=== PATIENT | male | born 1950 | race Caucasian/White ===

== ENCOUNTER 2020-12-24 15:26 | Emergency (ER) | payer MEDICARE, MEDICAID, SELFPAY ==
[2020-12-24 15:28] VITALS: BP 141/88; PULSE 107; RESP 18; TEMP 37; O2SAT 100; BMI 28.1
--- NOTE | 2020-12-24 15:56 | ED.HA ---
HPI - Headache General Chief Complaint: Headache Stated Complaint: HEADACHE Time Seen by Provider: 12/24/20 15:41 Source: patient Mode of arrival: ambulatory Limitations: no limitations History of Present Illness HPI Narrative: 70 yo male with past medical history of HIV on triumeq, DM, [place] here with complaints of sore throat, cough, body aches and generalized CHADWICK x 2 days. No fevers, chills, abdominal pain, vomiting, diarrhea, shortness of breath or chest pain. Received 1st COVID vaccine and is scheduled for 2nd. Related Data Allergies Allergy/AdvReac Type Severity Reaction Status Date / Time No Known Allergies Allergy Mild NOT Unverified 05/26/20 15:12 APPLICABLE Review of Systems Review of Systems: Yes all other systems are reviewed and are negative Constitutional: Constitutional: Reports no additional constitutional complaints, Reports body ache(s), Denies chills, Denies fever(s), Reports headache(s) and Denies weakness Eyes: Eyes: Reports no additional eye complaints and Denies change in vision ENT: Reports system reviewed and no additional complaints, except as documented, Denies dizziness, Reports headache(s), Denies nasal congestion, Denies nasal discharge, Denies neck pain and Reports sore throat Cardiovascular: Cardiovascular: Reports no additional cardiovascular complaints, Denies chest pain, Denies leg edema and Denies dyspnea Respiratory: Respiratory: Reports no additional respiratory complaints, Reports cough and Denies dyspnea Gastrointestinal: Gastrointestinal: Reports no additional gastrointestinal complaints, Denies abdominal pain, Denies diarrhea, Denies nausea and Denies vomiting Genitourinary: Genitourinary: Denies urinary incontinence Musculoskeletal: Musculoskeletal: Reports no additional musculoskeletal complaints, Denies back pain, Denies arthralgias, Denies joint swelling, Denies neck pain, Denies numbness and Denies tingling Integumentary/Breasts: Skin/Breast: Reports system reviewed and no additional complaints, except as docu and Denies rash Neurologic: Reports system reviewed and no additional complaints, except as documented, Denies Abnormal speech present, Denies dizziness, Reports headache(s), Denies numbness, Denies tingling and Denies weakness PMFSH Past Medical History Attestation statement: The following information was validated with the patient. Source: old records reviewed and nursing notes reviewed Medical History Appendicitis Coma Diabetes HIV (human immunodeficiency virus infection) Low testosterone Myocardial infarct Social History Social History Advance Directives: No Advance Directives Information Provided: Yes Physical Exam Vital Signs: Vital Signs: Last Vital Signs Temp 98.6 F 12/24/20 15:28 Pulse 107 H 12/24/20 15:28 Resp 18 12/24/20 15:28 BP 141/88 H 12/24/20 15:28 Pulse Ox 100 12/24/20 15:28 Body Mass Index 28.1 Const: General: cooperative, healthy appearing, comfortable and no acute distress Orientation/consciousness: patient oriented x3 Limitations: no limitations HENMT: Head: Yes normal to inspection Ears: hearing grossly normal bilaterally General nose exam: Normal external nose present Face and sinus: Yes normal facial exam Mouth: Normal oral and palatal mucosa present Throat: Yes posterior oropharynx normal Eyes: General: appearance normal, both eyes and all related structures Pupils: Equal, round and reactive pupils present Neck: Neck: Yes normal visual inspection Chest: Chest palpation & inspection: normal inspection of the chest Resp: Effort & Inspection: normal respiratory effort Auscultation: clear to auscultation bilaterally Cardio: Rate: regular rate Rhythm: regular rhythm Peripheral pulses: Peripheral pulses 2+ throughout GI: Inspection: Yes normal to inspection Palpation (GI): Soft to palpation and nontender Auscultation: normal bowel sounds Back/Spine/Pelvis: Thoracic/Lumbar Spine: thoracic and lumbar spine normal to inspection Skin: General skin exam: no rashes or lesions noted Neuro: General: patient oriented x3, no focal motor deficits and normal sensation to monofilament Cranial nerves: Yes Equal, round and reactive pupils present Cognition (Neuro): normal cognition Speech: No Abnormal speech present Gait exam (Neuro): Normal gait present Motor exam (neuro): 5/5 motor strength present throughout Extrem: General: Yes normal to inspection, Yes no pedal edema and Yes no calf tenderness Course Course Course Narrative: 70 yo male here with sore throat, [place]ADW[place], cough, body aches x 2 days seeking COVID test. Hemodynamically stable. Afebrile. Exam is benign. Will send COVID screen 1700-COVID screen negative. Patient is well-appearing. I did discuss if he has persistent symptoms he should follow up with his primary care doctor for more testing as deemed appropriate. Reviewed worrisome signs and symptoms and when to return to the emergency department. Comfortable discharge home. MDM - Headache Medical Records Attestation: I reviewed the patient's medical records. Lab Data Attestation: I reviewed the patient's lab results. Labs: Lab Results 12/24/20 Range/Units 16:30 COVID-19 ([facility]) Negative (Negative) COVID-19 Clin Com See Note Discharge Plan Discharge Clinical Impression: Acute viral syndrome Patient Disposition: Home, Self-Care Instructions: Viral Syndrome (ED) Additional Instructions: Motrin or Tylenol if able as needed for pain or fever Increase fluids, rest Your COVID test was negative You likely have a virus and should use supportive care at home. Seek care for persistent fever greater than 100.4, vomiting, severe abdominal pain, shortness of breath or chest pain. Referrals: Physician,None [Primary Care Provider] - 2 days Interventions: ED Discharge Assessment Last Done: 12/24/20 17:03 Discharge Date/Time: 12/24/20 17:05
[2020-12-24 16:54] LABS: COVID-19 Test Negative (Negative)
== END 2020-12-24 17:05 | disposition home or self-care (01) ==
PROVIDERS: Nurse Practitioner Family; Emergency Provider Emergency Medicine
DX: B34.9 Viral infection, unspecified (principal); Z20.822 Contact with and (suspected) exposure to COVID-19; R51.9 Headache, unspecified; J02.9 Acute pharyngitis, unspecified; B20 Human immunodeficiency virus [HIV] disease; I25.2 Old myocardial infarction
CPT/HCPCS: 36415; 87635; 99283

== ENCOUNTER 2021-01-12 10:51 | Emergency (ER) | payer MEDICARE, MEDICAID, SELFPAY ==
--- NOTE | ~2021-01-12 | CT_ITS ---
EXAMINATION: CT CHEST, ABDOMEN AND PELVIS WITHOUT CONTRAST CLINICAL INFORMATION: Fever. COMPARISON: Chest x-ray 01/12/2021 TECHNIQUE: 5 mm thin axial and reformatted 3 mm thin sagittal and coronal images of chest, abdomen and pelvis were obtained without contrast. DLP 1040 mGy-cm. FINDINGS: CHEST: Both lungs are well-expanded without acute consolidation. There are small subpleural groundglass opacities in the bilateral upper lobes, lingula and right middle lobe suspicious of early infiltrates. In addition there is dependent bibasilar atelectasis. The thyroid lobes are symmetric and normal. The central trachea and bronchi are widely patent. Heart size and great vessels are normal caliber. There are coronary artery calcifications present. There are small shotty lymph nodes in the mediastinum. The largest lymph node measures 1.1 cm in the precarinal space. There is no pleural effusion, thickening or calcification. The axilla and chest wall appears unremarkable. ABDOMEN AND PELVIS: The liver is homogeneous in density, normal size, shape and position. There is no focal lesion or intrahepatic ductal dilatation. There are multiple radiopaque dependent gallstones without wall thickening. Visualized spleen, pancreas and bilateral adrenal glands are unremarkable. Both kidneys are normal size, shape and position. No radiopaque renal calculi or hydronephrosis seen. There is scattered stool and gas seen throughout the colon without any significant distention. The small bowel loops are normal caliber.. There are postsurgical changes at the level of cecum with widely patent lumen. Appendix is not seen. No inflammatory process, obstruction or free air seen. There are scattered colonic diverticuli without diverticulitis. The abdominal aorta is normal caliber. No retroperitoneal lymph nodes or mass seen. The bladder is nondistended and appears unremarkable. The prostate gland is normal. Prominent bilateral inguinal canals containing fat is noted. There is moderate size lucency L3 vertebra question small hemangioma. There is mild right L5-S1 facet joint arthropathy. CT/CT abdomen pelvis wo con IMPRESSION: There are small bilateral groundglass opacities seen in both lungs suspicious of early infiltrates. Correlate for Covid disease. There is dependent bibasilar compressive atelectasis. No acute intra-abdominal process seen. Scattered colonic diverticulosis without diverticulitis. Cholelithiasis without wall thickening.
--- NOTE | ~2021-01-12 | XR_ITS ---
EXAMINATION: XR CHEST CLINICAL INFORMATION: Fever COMPARISON: Chest radiographs 06/20/2019, 11/10/2014 TECHNIQUE: Portable upright AP x2 views of the chest was obtained. FINDINGS: The lungs are clear. The vascularity is normal. There is no airspace consolidation or groundglass opacity or effusion. The heart is normal in size. The hilar and mediastinal contours and bony structures are unremarkable. XR/XR chest 1V IMPRESSION: Unremarkable examination.
--- NOTE | 2021-01-12 11:00 | ED_ITS ---
HPI - Altered Mental Status General Chief Complaint: Altered Mental Status Stated Complaint: ams Time Seen by Provider: 01/12/21 11:00 Related Data Allergies Allergy/AdvReac Type Severity Reaction Status Date / Time No Known Allergies Allergy Mild NOT Unverified 05/26/20 15:12 APPLICABLE [facility] Past Medical History Attestation statement: The following information was validated with the patient. Medical History Appendicitis Coma Diabetes HIV (human immunodeficiency virus infection) Low testosterone Myocardial infarct
[2021-01-12 11:01] LABS: Glucose, Whole Blood 127 mg/dL (60-115)
[2021-01-12 11:07] VITALS: TEMP 39.4
--- NOTE | 2021-01-12 11:07 | ECG_ITS ---
Test Reason : GENERAL MEDICAL Blood Pressure : / mmHG Vent. Rate : 117 BPM Atrial Rate : 117 BPM P-R Int : 180 ms QRS Dur : 078 ms QT Int : 310 ms P-R-T Axes : 061 -31 045 degrees QTc Int : 432 ms Sinus tachycardia with Premature atrial complexes Left axis deviation Anteroseptal infarct (cited on or before 12-JAN-2021) Abnormal ECG When compared with ECG of 20-JUN-2019 15:15, Premature atrial complexes are now Present Nonspecific T wave abnormality no longer evident in Lateral leads Referred By: Meghan Ledesma Electronically Signed By:EUGENIA HINKLE
--- NOTE | 2021-01-12 11:08 | ED.WEAKNESS ---
HPI - Weakness General Chief complaint: General Medical Stated complaint: ams Time Seen by Provider: 01/12/21 11:00 Source: patient Mode of arrival: ambulatory Limitations: no limitations History of Present Illness HPI Narrative: 70 yo male with hx of AL, DM, HIV on treatment undetectable levels and no AIDs associated infections in the past comes in with body pain, feels weak, malaise x 3 days Complaint: generalized weakness Onset (ago): day(s) (3) Duration: constant Location: generalized Severity: moderate Relieving factors: none Exacerbating factors: none Associated symptoms: confusion, fever/chills, loss of appetite and myalgias Related Data Previous Rx's Medication Instructions Recorded dexamethasone 6 mg PO DAILY 6 Days #6 tab 01/12/21 doxycycline hyclate 100 mg PO BID 7 Days #14 cap 01/12/21 Allergies Allergy/AdvReac Type Severity Reaction Status Date / Time No Known Allergies Allergy Mild NOT Unverified 05/26/20 15:12 APPLICABLE Review of Systems Review of Systems: Constitutional : No Weight loss, No Fever, pos Chills, pos Fatigue, pos Malaise ENT/Mouth : No sore throat, No Rhinorrhea Eyes: No Eye Pain, No Swelling, No Redness Cardiovascular : No Chest Pain, No SOB, No Dyspnea on Exertion, No Orthopnea, No Edema, No Palpitations Respiratory : No Cough, No Sputum, No Wheezing Gastrointestinal : No Nausea, No Vomiting, No Diarrhea, No Constipation, No abdominal Pain, No Hematochezia, No Melena Genitourinary : No Dysuria, No Urinary Frequency, No Hematuria, Musculoskeletal : No joint pain, pos Myalgias, No Joint Swelling Skin : No Skin Lesions, No rash Neuro : pos Weakness, No Numbness, No Dizziness, No Headache Psych : No Anxiety/Panic, No Depression Heme/Lymph: No Bruising, No Bleeding,No Lymphadenopathy Endocrine : No Polyuria, No Polydipsia All other systems reviewed and are negative PMFSH Past Medical History Attestation statement: The following information was validated with the patient. Medical History Appendicitis Coma Diabetes HIV (human immunodeficiency virus infection) Low testosterone Myocardial infarct Social History Social History Smoking Status: Never smoker Use of substances other than those prescribed or required for medical reasons: No Advance Directives: Yes Advance Directives Information Provided: No Advance Directives on File: No Physical Exam Vital Signs: Vital Signs: Last Vital Signs Temp 98.2 F 01/12/21 12:41 Pulse 76 01/12/21 15:12 Resp 16 01/12/21 15:12 BP 115/63 01/12/21 15:12 Pulse Ox 95 01/12/21 15:12 Body Mass Index 30.5 Appearance: Alert. Oriented X3. No acute distress. Eyes: Pupils equal, round and reactive to light. ENT: Pharynx normal. Neck: Normal inspection. Neck supple. no meningeal signs CVS: Normal heart rate and rhythm. Pulses normal. Respiratory: No respiratory distress. Breath sounds normal. Abdomen: Soft and nontender. Skin: Skin hot to touch and dry. Normal skin color. Normal skin turgor. Extremities: No lower extremity edema. No calf ttp Neuro: Oriented X 3. No motor deficit. No sensory deficit. Course Course Course Narrative: mild bump in Cr 1.8 to 2.2 not on O2 95% on RA, alert and oriented x 3, discussed reasons to return, negative COVID, discussed labs and CT scan looks like COVID, plan for doxy and dexamethasone MDM - Weakness MDM Narrative Medical decision making narrative: 70 yo male with DM, AL, HIV well controlled no prior infections and undetectable comes in 3 days of body aches, fatigue, feels confused at times, he is alert and oriented x 3, no meningeal signs, labs, UA, CXR, COVID test, lyme test dispo per results and findings, seems atypical for meningitis/encephalitis at this time Lab Data Result diagrams: 01/12/21 11:44 01/12/21 11:44 Labs: Lab Results 01/12/21 01/12/21 01/12/21 Range/Units 10:57 11:44 11:44 WBC 11.5 H (4.8-10.8) X10*3/uL RBC 5.08 (4.60-5.80) X10*6/uL Hgb 16.4 (14.0-18.0) g/dl Hct 45.8 (42-52) % MCV 90.2 (80-98) fL MCH 32.3 (27.0-33.0) pg MCHC 35.8 (31.0-36.0) g/dl RDW 12.7 (11.0-16.0) % Plt Count 159 L (160-400) X10*3/uL MPV 8.8 L (9.4-12.4) fL Immature Gran % (Auto) 0.3 (0.0-0.4) % Neut % (Auto) 80.6 H (45-73) % Lymph % (Auto) 8.6 L (20-40) % [place] % (Auto) 9.0 (2-11) % Eos % (Auto) 1.1 (0-4) % Baso % (Auto) 0.4 (0-2) % Lymph # (Auto) 1.0 L (1.2-4.9) X10*3/uL [place] # (Auto) 1.0 (0.1-1.2) X10*3/uL Eos # (Auto) 0.1 (0.0-0.4) X10*3/uL Baso # (Auto) 0.1 (0.0-0.2) X10*3/uL Abs Immat Gran (auto) 0.04 H (0.00-0.03) X10*3/uL Absolute Neuts (auto) 9.2 H (2.0-8.3) X10*3/uL Absolute Nucleated RBC 0.000 (0.0-0.012) X10*3/uL Nucleated RBC % (auto) 0.0 (0.0-0.2) /100WBC Hold Blue Top SEE NOTE Sodium (135-145) mmol/L Potassium (3.3-5.1) mmol/L Chloride (96-108) mmol/L Carbon Dioxide (22-29) mmol/L Anion Gap (12-20) BUN (9-16) mg/dL Creatinine (0.5-1.4) mg/dL Estim Creat Clear Calc Estimated GFR POC Glucose 127 H (60-115) mg/dL Random Glucose (60-115) mg/dL Lactic Acid (0.5-2.0) mmol/L Calcium (8.4-10.2) mg/dL Magnesium (1.6-2.6) mg/dL Total Bilirubin (0.0-1.0) mg/dL Direct Bilirubin (0.0-0.5) mg/dL AST (5-37) U/L ALT (0-40) U/L Alkaline Phosphatase (39-117) U/L Total Protein (6.5-8.0) g/dL Albumin (3.5-5.0) g/dL Lipase (8-78) U/L Urine Color Urine Appearance Urine pH (5.0-8.0) Ur Specific Ruby (1.005-1.025) Urine Protein (NEG-TRACE) MG/DL Urine Glucose (UA) (NEG) MG/DL Urine Ketones (NEG) MG/DL Urine Blood (NEG) Urine Nitrite (NEG) Ur Leukocyte Esterase (NEG) Urine RBC (0) /HPF Urine WBC (0-4) /HPF Ur Squamous Epith Cells /LPF Urine Bacteria /LPF Urine Mucus /LPF Coronavirus (PCR) (Negative) Influenza Type A (PCR) (Negative) Influenza Type B (PCR) (Negative) RSV RNA Qual (PCR) (Negative) 01/12/21 01/12/21 01/12/21 Range/Units 11:44 11:44 11:44 WBC (4.8-10.8) X10*3/uL RBC (4.60-5.80) X10*6/uL Hgb (14.0-18.0) g/dl Hct (42-52) % MCV (80-98) fL MCH (27.0-33.0) pg MCHC (31.0-36.0) g/dl RDW (11.0-16.0) % Plt Count (160-400) X10*3/uL MPV (9.4-12.4) fL Immature Gran % (Auto) (0.0-0.4) % Neut % (Auto) (45-73) % Lymph % (Auto) (20-40) % [place] % (Auto) (2-11) % Eos % (Auto) (0-4) % Baso % (Auto) (0-2) % Lymph # (Auto) (1.2-4.9) X10*3/uL [place] # (Auto) (0.1-1.2) X10*3/uL Eos # (Auto) (0.0-0.4) X10*3/uL Baso # (Auto) (0.0-0.2) X10*3/uL Abs Immat Gran (auto) (0.00-0.03) X10*3/uL Absolute Neuts (auto) (2.0-8.3) X10*3/uL Absolute Nucleated RBC (0.0-0.012) X10*3/uL Nucleated RBC % (auto) (0.0-0.2) /100WBC Hold Blue Top Sodium 134 L (135-145) mmol/L Potassium 3.1 L (3.3-5.1) mmol/L Chloride 95 L (96-108) mmol/L Carbon Dioxide 29 (22-29) mmol/L Anion Gap 13 (12-20) BUN 15 (9-16) mg/dL Creatinine 2.25 H (0.5-1.4) mg/dL Estim Creat Clear Calc 33.9 Estimated GFR 29 POC Glucose (60-115) mg/dL Random Glucose 112 (60-115) mg/dL Lactic Acid 1.5 (0.5-2.0) mmol/L Calcium 9.2 (8.4-10.2) mg/dL Magnesium 1.5 L (1.6-2.6) mg/dL Total Bilirubin 1.1 H (0.0-1.0) mg/dL Direct Bilirubin 0.5 (0.0-0.5) mg/dL AST 13 (5-37) U/L ALT 19 (0-40) U/L Alkaline Phosphatase 74 (39-117) U/L Total Protein 7.8 (6.5-8.0) g/dL Albumin 4.1 (3.5-5.0) g/dL Lipase 58 (8-78) U/L Urine Color Urine Appearance Urine pH (5.0-8.0) Ur Specific Ruby (1.005-1.025) Urine Protein (NEG-TRACE) MG/DL Urine Glucose (UA) (NEG) MG/DL Urine Ketones (NEG) MG/DL Urine Blood (NEG) Urine Nitrite (NEG) Ur Leukocyte Esterase (NEG) Urine RBC (0) /HPF Urine WBC (0-4) /HPF Ur Squamous Epith Cells /LPF Urine Bacteria /LPF Urine Mucus /LPF Coronavirus (PCR) NEGATIVE (Negative) Influenza Type A (PCR) NEGATIVE (Negative) Influenza Type B (PCR) NEGATIVE (Negative) RSV RNA Qual (PCR) NEGATIVE (Negative) 01/12/21 Range/Units 12:45 WBC (4.8-10.8) X10*3/uL RBC (4.60-5.80) X10*6/uL Hgb (14.0-18.0) g/dl Hct (42-52) % MCV (80-98) fL MCH (27.0-33.0) pg MCHC (31.0-36.0) g/dl RDW (11.0-16.0) % Plt Count (160-400) X10*3/uL MPV (9.4-12.4) fL Immature Gran % (Auto) (0.0-0.4) % Neut % (Auto) (45-73) % Lymph % (Auto) (20-40) % [place] % (Auto) (2-11) % Eos % (Auto) (0-4) % Baso % (Auto) (0-2) % Lymph # (Auto) (1.2-4.9) X10*3/uL [place] # (Auto) (0.1-1.2) X10*3/uL Eos # (Auto) (0.0-0.4) X10*3/uL Baso # (Auto) (0.0-0.2) X10*3/uL Abs Immat Gran (auto) (0.00-0.03) X10*3/uL Absolute Neuts (auto) (2.0-8.3) X10*3/uL Absolute Nucleated RBC (0.0-0.012) X10*3/uL Nucleated RBC % (auto) (0.0-0.2) /100WBC Hold Blue Top Sodium (135-145) mmol/L Potassium (3.3-5.1) mmol/L Chloride (96-108) mmol/L Carbon Dioxide (22-29) mmol/L Anion Gap (12-20) BUN (9-16) mg/dL Creatinine (0.5-1.4) mg/dL Estim Creat Clear Calc Estimated GFR POC Glucose (60-115) mg/dL Random Glucose (60-115) mg/dL Lactic Acid (0.5-2.0) mmol/L Calcium (8.4-10.2) mg/dL Magnesium (1.6-2.6) mg/dL Total Bilirubin (0.0-1.0) mg/dL Direct Bilirubin (0.0-0.5) mg/dL AST (5-37) U/L ALT (0-40) U/L Alkaline Phosphatase (39-117) U/L Total Protein (6.5-8.0) g/dL Albumin (3.5-5.0) g/dL Lipase (8-78) U/L Urine Color YELLOW Urine Appearance HAZY Urine pH 5.5 (5.0-8.0) Ur Specific Ruby >= 1.030 H (1.005-1.025) Urine Protein 1+ H (NEG-TRACE) MG/DL Urine Glucose (UA) NEG (NEG) MG/DL Urine Ketones NEG (NEG) MG/DL Urine Blood 2+ H (NEG) Urine Nitrite NEG (NEG) Ur Leukocyte Esterase NEG (NEG) Urine RBC 1-4 (0) /HPF Urine WBC 1-4 (0-4) /HPF Ur Squamous Epith Cells TRACE /LPF Urine Bacteria NONE /LPF Urine Mucus 2+ /LPF Coronavirus (PCR) (Negative) Influenza Type A (PCR) (Negative) Influenza Type B (PCR) (Negative) RSV RNA Qual (PCR) (Negative) ECG Data Attestation: I personally reviewed and interpreted this ECG as follows: ECG interpretation date: 01/12/21 ECG interpretation time: 11:17 Interpretation: Rate: 117 Rhythm: sinus tachycardia [place]: left Normal P waves. Normal PRICILA. Normal QRS complex. ST T wave : normal no JEROME qTC: normal prior studies: no acute ischemia The study has been interpreted contemporaneously by me. . Discharge Plan Discharge Clinical Impression: Atypical pneumonia, Hypomagnesemia, Dehydration Fever Qualifiers: Fever type: unspecified Qualified Code(s): R50.9 - Fever, unspecified Patient Disposition: Home, Self-Care Instructions: Dehydration (ED), Fever in Adults (ED), Pneumonia (ED), COVID-19 (Coronavirus Disease 2019) (ED) Additional Instructions: return to ED for any worsening symptoms or concerns YOUR COVID SWAB WAS NEGATIVE BUT YOUR LABS AND CT SCAN DO APPEAR LIKE COVID PLEASE APPROPRIATELY WEAR A MASK AND ISOLATE, IF YOU CANNOT BREATHE, IF YOU ARE SO WEAK YOU CANNOT WALK TO THE BATHROOM, IF YOU FEEL WORSE PLEASE COME BACK RECHECK KIDNEY FUNCTION IN 3 DAYS WITH YOUR DOCTOR USE TYLENOL FOR FEVERS STEROIDS CAN MAKE YOUR BLOOD SUGARS INCREASE PLEASE MONITOR CAREFULLY Prescriptions: New doxycycline hyclate 100 mg capsule 100 mg PO BID 7 Days Qty: 14 RF: 0 dexamethasone 6 mg tablet 6 mg PO DAILY 6 Days Qty: 6 RF: 0
[2021-01-12 11:32] VITALS: BP 122/72; PULSE 115; RESP 18; O2SAT 95; BMI 30.5
[2021-01-12] MEDS: Ibuprofen 600 MG TABLET PO (11:34)
[2021-01-12] MEDS: Acetaminophen 325 MG TABLET 650 MG PO (11:34)
[2021-01-12 11:51] LABS: MANUAL DIFF FLAG NO
[2021-01-12 11:55] LABS: Basophils Absolute Auto 0.1 X10*3/uL (0.0-0.2); Basophils Percent Auto 0.4 % (0-2); Eosinophils Absolute Auto 0.1 X10*3/uL (0.0-0.4); Eosinophils Percent Auto 1.1 % (0-4); Hematocrit 45.8 % (42-52); Hemoglobin 16.4 g/dl (14.0-18.0); Imm Gran Abs Auto 0.04 X10*3/uL (0.00-0.03); Imm Gran Pct Auto 0.3 % (0.0-0.4); Lymphocytes Percent Auto 8.6 % (20-40); Mean Corpuscular HGB Conc 35.8 g/dl (31.0-36.0); Mean Corpuscular Hemoglobin 32.3 pg (27.0-33.0); Mean Corpuscular Volume 90.2 fL (80-98); Mean Platelet Volume 8.8 fL (9.4-12.4); Neutrophils Absolute Auto 9.2 X10*3/uL (2.0-8.3); Neutrophils Percent Auto 80.6 % (45-73); Platelet Count 159 X10*3/uL (160-400); Red Blood Count 5.08 X10*6/uL (4.60-5.80); Red Cell Distribution Width 12.7 % (11.0-16.0); White Blood Count 11.5 X10*3/uL (4.8-10.8)
[2021-01-12 12:18] LABS: Lactic Acid 1.5 mmol/L (0.5-2.0)
[2021-01-12 12:24] LABS: Alanine Aminotransferase 19 U/L (0-40); Albumin Level 4.1 g/dL (3.5-5.0); Alkaline Phosphatase 74 U/L (39-117); Anion Gap 13 (12-20); Aspartate Amino Transferase 13 U/L (5-37); Bilirubin Direct 0.5 mg/dL (0.0-0.5); Bilirubin Total 1.1 mg/dL (0.0-1.0); Blood Urea Nitrogen 15 mg/dL (9-16); Calcium 9.2 mg/dL (8.4-10.2); Carbon Dioxide 29 mmol/L (22-29); Chloride 95 mmol/L (96-108); Creatinine Clr Calc Pharmacy 33.9; Estimated Glomerular Filt Rate 29; Glucose Random 112 mg/dL (60-115); Lipase 58 U/L (8-78); Magnesium 1.5 mg/dL (1.6-2.6); Potassium 3.1 mmol/L (3.3-5.1); Sodium 134 mmol/L (135-145); Total Protein 7.8 g/dL (6.5-8.0)
[2021-01-12 12:39] LABS: Influenza A PCR NEGATIVE (Negative); Influenza B PCR NEGATIVE (Negative); Resp Syncy Virus RNA Qual PCR NEGATIVE (Negative); SARS COV2 PCR INHOUSE NEGATIVE (Negative)
[2021-01-12 12:41] VITALS: PULSE 102; RESP 16; TEMP 36.8; O2SAT 95
[2021-01-12] MEDS: Magnesium Sulfate/H2O 2 GM/50 ML PIGGYBACK IV (12:50)
[2021-01-12] MEDS: 0.9 % Sodium Chloride 1,000 ML 999 ML IVCONT (12:50)
[2021-01-12] MEDS: Potassium Chloride ER 20 MEQ TAB.ER.PRT PO (12:50)
[2021-01-12 13:07] LABS: Glucose Urine UA NEG (NEG); Leukocyte Esterase Urine NEG (NEG); Nitrite Urine NEG (NEG); PH 5.5 (5.0-8.0); Specific Gravity - Urine >= 1.030 (1.005-1.025); Urine Blood 2+ (NEG); Urine Ketones NEG (NEG); Urine Protein 1+ MG/DL (NEG-TRACE)
[2021-01-12 13:16] LABS: Appearance Urine HAZY; Color Urine YELLOW
[2021-01-12 13:31] LABS: Mucus Urine 2+ /LPF; Squamous Epithelial Cell Urine TRACE /LPF
[2021-01-12 15:12] VITALS: BP 115/63; PULSE 76; RESP 16; O2SAT 95
[2021-01-12] MEDS: dexAMETHasone 6 MG TABLET PO (16:39)
[2021-01-13 05:22] LABS: Lyme Blot 1.46 index
[2021-01-16 08:39] LABS: Lyme Abs Screen POSITIVE
[2021-01-16 17:22] LABS: 18 KD (IgG) Band NON-REACTIVE; 23 KD (IgG) Band NON-REACTIVE; 23 KD (IgM) Band REACTIVE; 28 KD (IgG) Band NON-REACTIVE; 30 KD (IgG) Band NON-REACTIVE; 39 KD (IgM) Band NON-REACTIVE; 41 KD (IgM) Band NON-REACTIVE; 45 KD (IgG) Band NON-REACTIVE; 58 KD (IgG) Band NON-REACTIVE; 66 KD (IgG) Band NON-REACTIVE; 93 KD (IgG) Band NON-REACTIVE; Lyme IgG Blot Interp NEGATIVE (NEGATIVE); Lyme IgM Blot Interp NEGATIVE (NEGATIVE)
== END 2021-01-12 16:50 | disposition home or self-care (01) ==
PROVIDERS: Emergency Provider Emergency Medicine; PCP Family Medicine
DX: J18.9 Pneumonia, unspecified organism (principal); E83.42 Hypomagnesemia; E86.0 Dehydration; R50.9 Fever, unspecified; Z20.822 Contact with and (suspected) exposure to COVID-19; Z79.899 Other long term (current) drug therapy
CPT/HCPCS: 0241U; 36415; 71045; 71250; 74176; 80048; 80076; 81001; 82947; 83605; 83690; 83735; 85025; 86617; 86618; 87040; 93005; 96360; 96361; 99285; J3475; J8540

== ENCOUNTER 2021-01-17 03:19 | Emergency (ER) | payer MEDICARE, MEDICAID, SELFPAY ==
--- NOTE | 2021-01-16 07:29 | ECG_ITS ---
Test Reason : SOB Blood Pressure : / mmHG Vent. Rate : 063 BPM Atrial Rate : 063 BPM P-R Int : 168 ms QRS Dur : 086 ms QT Int : 422 ms P-R-T Axes : 050 008 079 degrees QTc Int : 431 ms Normal sinus rhythm Normal ECG When compared with ECG of 17-JAN-2021 04:01, Criteria for Septal infarct are no longer Present Referred By: Buffy Gaytan Electronically Signed By:Chay Palomares
--- NOTE | ~2021-01-17 | US_ITS ---
EXAMINATION: US ABDOMEN LIMITED CLINICAL INFORMATION: Right upper quadrant pain.. COMPARISON: Selected portions of CT 01/12/21 obtained without contrast TECHNIQUE: Real-time imaging of the right upper quadrant abdominal viscera. Technologist indicates that the patient was unable to remain motionless during a hiccuping FINDINGS: PANCREAS: No suspicious abnormality in the visualized portions of the pancreas. The region of the pancreatic tail was obscured. LIVER: No suspicious abnormality. The liver is normal in size. The liver contour is normal. Parenchymal echogenicity is normal. No focal hepatic lesion. There is no intrahepatic biliary duct dilatation seen. GALLBLADDER: There are multiple small gallstones near the gallbladder neck. There is tenderness to transducer pressure over the gallbladder. There is no definite gallbladder wall thickening or localized pericholecystic fluid COMMON BILE DUCT: Normal in caliber measuring 0.5 cm in diameter. RIGHT KIDNEY: Normal. No hydronephrosis. No renal calculi or focal parenchymal lesions. The kidney measures 11.3 cm in maximum dimension. FREE FLUID: None. US/US abdomen limited IMPRESSION: Multiple small gallstones. No biliary dilation. There is tenderness to transducer pressure over the gallbladder. There is no pericholecystic fluid The presence of acute cholecystitis is difficult to determine in this setting. There were gallstones present on CT 01/12/21
--- NOTE | ~2021-01-17 | XR_ITS ---
EXAMINATION: XR CHEST CLINICAL INFORMATION: Cough COMPARISON: 01/12/2021 TECHNIQUE: Frontal view of the chest was obtained. FINDINGS: The lungs are well expanded. There is no focal consolidation, edema, or effusion. No pneumothorax. The cardiomediastinal silhouette is within normal limits. No acute osseous abnormality. XR/XR chest 1V IMPRESSION: Clear lungs.
[2021-01-17 03:22] VITALS: BP 137/82; PULSE 84; RESP 20; TEMP 36.4; O2SAT 96; BMI 29.5
--- NOTE | 2021-01-17 03:48 | ECG_ITS ---
Test Reason : SOB Blood Pressure : / mmHG Vent. Rate : 082 BPM Atrial Rate : 082 BPM P-R Int : 146 ms QRS Dur : 084 ms QT Int : 378 ms P-R-T Axes : 044 -22 017 degrees QTc Int : 441 ms Normal sinus rhythm Septal infarct (cited on or before 12-JAN-2021) Abnormal ECG When compared with ECG of 12-JAN-2021 11:16, Premature atrial complexes are no longer Present Questionable change in initial forces of Anterior leads Referred By: Buffy Gaytan Electronically Signed By:Chay Palomares
[2021-01-17] MEDS: ondansetron HCL 4 MG/2 ML VIAL IVPUSH (04:05)
[2021-01-17 04:10] LABS: MANUAL DIFF FLAG NO
[2021-01-17 04:11] LABS: Basophils Percent Auto 0.2 % (0-2); Eosinophils Absolute Auto 0.1 X10*3/uL (0.0-0.4); Eosinophils Percent Auto 0.4 % (0-4); Hematocrit 46.9 % (42-52); Hemoglobin 16.5 g/dl (14.0-18.0); Imm Gran Abs Auto 0.23 X10*3/uL (0.00-0.03); Imm Gran Pct Auto 1.4 % (0.0-0.4); Lymphocytes Absolute Auto 1.5 X10*3/uL (1.2-4.9); Lymphocytes Percent Auto 9.4 % (20-40); Mean Corpuscular HGB Conc 35.2 g/dl (31.0-36.0); Mean Corpuscular Hemoglobin 32.5 pg (27.0-33.0); Mean Corpuscular Volume 92.3 fL (80-98); Monocytes Absolute Auto 1.1 X10*3/uL (0.1-1.2); Neutrophils Absolute Auto 13.1 X10*3/uL (2.0-8.3); Neutrophils Percent Auto 81.6 % (45-73); Platelet Count 214 X10*3/uL (160-400); Red Blood Count 5.08 X10*6/uL (4.60-5.80); Red Cell Distribution Width 12.7 % (11.0-16.0); White Blood Count 16.1 X10*3/uL (4.8-10.8)
--- NOTE | 2021-01-17 04:12 | PC.NURSE ---
Pt aaox4, ambulatory with steady gait to room. Pt labs obtained and sent for processing. Pt provided with clean catch urine cup and educated on use for when pt feels he is able to provide a urine sample. CXR obtained. Pt awaiting provider eval. Stretcher in lowest locked position, rails raised, call gay within reach.
[2021-01-17 04:17] LABS: INTERNATIONAL NORM RATIO 1.1 (0.9-1.1)
[2021-01-17 04:35] LABS: Lipase 171 U/L (8-78)
[2021-01-17 04:38] LABS: Troponin-I High Sensitivity < 3.5 ng/L (<3.5-35.0)
[2021-01-17 04:47] LABS: Alanine Aminotransferase 29 U/L (0-40); Albumin Level 4.2 g/dL (3.5-5.0); Alkaline Phosphatase 74 U/L (39-117); Anion Gap 16 (12-20); Aspartate Amino Transferase 25 U/L (5-37); Bilirubin Total 0.8 mg/dL (0.0-1.0); Blood Urea Nitrogen 44 mg/dL (9-16); Carbon Dioxide 29 mmol/L (22-29); Chloride 96 mmol/L (96-108); Creatinine Clr Calc Pharmacy 36.4; Estimated Glomerular Filt Rate 31; Glucose Random 195 mg/dL (60-115); Potassium 4.4 mmol/L (3.3-5.1); Sodium 137 mmol/L (135-145); Total Protein 7.9 g/dL (6.5-8.0)
--- NOTE | 2021-01-17 05:01 | ED_ITS ---
HPI - General Adult General Chief complaint: General Medical Stated complaint: SOB Time Seen by Provider: 01/17/21 03:48 Source: patient Mode of arrival: ambulatory History of Present Illness HPI narrative: 70-year-old male who presents with complaints hiccups which caused him to become short of breath and and he is sick and tired of them. Patient was diagnosed with atypical pneumonia on 01/12 and denies any fevers, chills, nausea, vomiting, diarrhea and has continued to have regular bowel movements without difficulty and denies any abdominal pain. In addition, he denies any shortness of breath or chest pain other than the burning sensation from the hiccups. Related Data Home Medications Medication Instructions Recorded Confirmed ettvvfgo-[id number]-[id number] 1 tab PO DAILY 01/17/21 01/17/21 [Triumeq] amlodipine 1 tab PO DAILY 01/17/21 01/17/21 bupropion HCl 1 tab PO DAILY 01/17/21 01/17/21 chlorthalidone 1 tab PO DAILY 01/17/21 01/17/21 dulaglutide [Trulicity] 1 mg SUBCUT QWEEK 01/17/21 01/17/21 insulin degludec [Tresiba 110 unit SUBCUT QPM 01/17/21 01/17/21 FlexTouch U-200] lisinopril 1 tab PO DAILY 01/17/21 01/17/21 metoprolol succinate 1 tab PO DAILY 01/17/21 01/17/21 pen needle, diabetic [BD Colette 2nd 01/17/21 01/17/21 Gen Pen Needle] rosuvastatin 1 tab PO DAILY 01/17/21 01/17/21 tamsulosin 1 cap PO DAILY 01/17/21 01/17/21 testosterone [Testopel] mg 01/17/21 Previous Rx's Medication Instructions Recorded dexamethasone 6 mg PO DAILY 6 Days #6 tab 01/12/21 doxycycline hyclate 100 mg PO BID 7 Days #14 cap 01/12/21 chlorpromazine 25 mg PO Q6H PRN #6 tab 01/17/21 Allergies Allergy/AdvReac Type Severity Reaction Status Date / Time No Known Allergies Allergy Mild NOT Verified 01/17/21 05:48 APPLICABLE Review of Systems Review of Systems: Pertinent positives and negatives as mentioned in HPI 10 point review of systems is otherwise negative. PMFSH Past Medical History Source: nursing notes reviewed Medical History Appendicitis Coma Diabetes HIV (human immunodeficiency virus infection) Low testosterone Myocardial infarct Social History Social History Alcohol intake: never Smoking Status: Never smoker Advance Directives: No Physical Exam Vital Signs: Vital Signs: Last Vital Signs Temp 97.5 F 01/17/21 03:22 Pulse 86 01/17/21 07:27 Resp 14 01/17/21 05:47 BP 113/70 01/17/21 05:47 Pulse Ox 96 01/17/21 07:27 Body Mass Index 29.5 VITAL SIGNS: Reviewed. GENERAL: Well developed, well nourished, in no acute distress. HEAD: Normocephalic/atraumatic EYES: PERRLA, EOMI OROPHARYNX: no oral lesions noted, posterior pharynx clear NECK: Supple, no adenopathy LUNGS: Normal breath sounds. No adventitious sounds or accessory muscle use. SpO2<96> CARDIOVASCULAR: Regular rate and rhythm without noted murmurs ABDOMEN: Soft, non-tender, non-distended with bowel sounds. MUSCULOSKELETAL: No tenderness, deformities, or effusions noted on gross inspection. EXTREMITIES: No cyanosis, clubbing or edema. SKIN: Inspection of the skin reveals no rashes NEUROLOGIC: Alert and oriented x 4. Course Course Course Narrative: 70-year-old male with intractable hiccups and on review of all investigations noted leukocytosis with LUCAS and elevated lipase. Will evaluate patient with ultrasound and obtain BNP and administer IV fluids. Review of all investigations demonstrates a leukocytosis likely reflective of patient's current steroid use as there is no evidence of febrile episodes, cough or shortness of breath and a negative chest x-ray. On re-evaluation patient is resting comfortably without hiccups, however will be discharged with a course as needed Thorazine should they recur. He was given strict recommendations to follow up with his primary care provider. Medical Decision Making Lab Data Result diagrams: 01/17/21 04:04 01/17/21 04:04 Labs: Lab Results 01/17/21 01/17/21 01/17/21 Range/Units 04:04 04:04 04:04 WBC 16.1 H (4.8-10.8) X10*3/uL RBC 5.08 (4.60-5.80) X10*6/uL Hgb 16.5 (14.0-18.0) g/dl Hct 46.9 (42-52) % MCV 92.3 (80-98) fL MCH 32.5 (27.0-33.0) pg MCHC 35.2 (31.0-36.0) g/dl RDW 12.7 (11.0-16.0) % Plt Count 214 D (160-400) X10*3/uL MPV 9.0 L (9.4-12.4) fL Immature Gran % (Auto) 1.4 H (0.0-0.4) % Neut % (Auto) 81.6 H (45-73) % Lymph % (Auto) 9.4 L (20-40) % [place] % (Auto) 7.0 (2-11) % Eos % (Auto) 0.4 (0-4) % Baso % (Auto) 0.2 (0-2) % Lymph # (Auto) 1.5 (1.2-4.9) X10*3/uL [place] # (Auto) 1.1 (0.1-1.2) X10*3/uL Eos # (Auto) 0.1 (0.0-0.4) X10*3/uL Baso # (Auto) 0.0 (0.0-0.2) X10*3/uL Abs Immat Gran (auto) 0.23 H (0.00-0.03) X10*3/uL Absolute Neuts (auto) 13.1 H (2.0-8.3) X10*3/uL Absolute Nucleated RBC 0.000 (0.0-0.012) X10*3/uL Nucleated RBC % (auto) 0.0 (0.0-0.2) /100WBC PT 13.0 (10.8-13.0) SEC INR 1.1 (0.9-1.1) Sodium 137 (135-145) mmol/L Potassium 4.4 D (3.3-5.1) mmol/L Chloride 96 (96-108) mmol/L Carbon Dioxide 29 (22-29) mmol/L Anion Gap 16 (12-20) BUN 44 H D (9-16) mg/dL Creatinine 2.13 H (0.5-1.4) mg/dL Estim Creat Clear Calc 36.4 Estimated GFR 31 Random Glucose 195 H D (60-115) mg/dL Calcium 10.0 D (8.4-10.2) mg/dL Magnesium (1.6-2.6) mg/dL Total Bilirubin 0.8 (0.0-1.0) mg/dL AST 25 D (5-37) U/L ALT 29 (0-40) U/L Alkaline Phosphatase 74 (39-117) U/L Troponin I High Sens (<3.5-35.0) ng/L B-Natriuretic Peptide (<100) pg/mL Total Protein 7.9 (6.5-8.0) g/dL Albumin 4.2 (3.5-5.0) g/dL Lipase (8-78) U/L Procalcitonin ng/mL Urine Color Urine Appearance Urine pH (5.0-8.0) Ur Specific [place] (1.005-1.025) Urine Protein (NEG-TRACE) MG/DL Urine Glucose (UA) (NEG) MG/DL Urine Ketones (NEG) MG/DL Urine Blood (NEG) Urine Nitrite (NEG) Ur Leukocyte Esterase (NEG) Urine RBC (0) /HPF Urine WBC (0-4) /HPF Ur Squamous Epith Cells /LPF Urine Bacteria /LPF Hyaline Casts /LPF Urine Mucus /LPF COVID-19 ([facility]) (Negative) COVID-19 Clin Com 01/17/21 01/17/21 01/17/21 Range/Units 04:04 04:04 04:04 WBC (4.8-10.8) X10*3/uL RBC (4.60-5.80) X10*6/uL Hgb (14.0-18.0) g/dl Hct (42-52) % MCV (80-98) fL MCH (27.0-33.0) pg MCHC (31.0-36.0) g/dl RDW (11.0-16.0) % Plt Count (160-400) X10*3/uL MPV (9.4-12.4) fL Immature Gran % (Auto) (0.0-0.4) % Neut % (Auto) (45-73) % Lymph % (Auto) (20-40) % [place] % (Auto) (2-11) % Eos % (Auto) (0-4) % Baso % (Auto) (0-2) % Lymph # (Auto) (1.2-4.9) X10*3/uL [place] # (Auto) (0.1-1.2) X10*3/uL Eos # (Auto) (0.0-0.4) X10*3/uL Baso # (Auto) (0.0-0.2) X10*3/uL Abs Immat Gran (auto) (0.00-0.03) X10*3/uL Absolute Neuts (auto) (2.0-8.3) X10*3/uL Absolute Nucleated RBC (0.0-0.012) X10*3/uL Nucleated RBC % (auto) (0.0-0.2) /100WBC PT (10.8-13.0) SEC INR (0.9-1.1) Sodium (135-145) mmol/L Potassium (3.3-5.1) mmol/L Chloride (96-108) mmol/L Carbon Dioxide (22-29) mmol/L Anion Gap (12-20) BUN (9-16) mg/dL Creatinine (0.5-1.4) mg/dL Estim Creat Clear Calc Estimated GFR Random Glucose (60-115) mg/dL Calcium (8.4-10.2) mg/dL Magnesium 2.0 (1.6-2.6) mg/dL Total Bilirubin (0.0-1.0) mg/dL AST (5-37) U/L ALT (0-40) U/L Alkaline Phosphatase (39-117) U/L Troponin I High Sens < 3.5 (<3.5-35.0) ng/L B-Natriuretic Peptide 28 (<100) pg/mL Total Protein (6.5-8.0) g/dL Albumin (3.5-5.0) g/dL Lipase 171 H (8-78) U/L Procalcitonin 0.04 ng/mL Urine Color Urine Appearance Urine pH (5.0-8.0) Ur Specific [place] (1.005-1.025) Urine Protein (NEG-TRACE) MG/DL Urine Glucose (UA) (NEG) MG/DL Urine Ketones (NEG) MG/DL Urine Blood (NEG) Urine Nitrite (NEG) Ur Leukocyte Esterase (NEG) Urine RBC (0) /HPF Urine WBC (0-4) /HPF Ur Squamous Epith Cells /LPF Urine Bacteria /LPF Hyaline Casts /LPF Urine Mucus /LPF COVID-19 ([facility]) (Negative) COVID-19 Clin Com 01/17/21 01/17/21 Range/Units 05:21 05:50 WBC (4.8-10.8) X10*3/uL RBC (4.60-5.80) X10*6/uL Hgb (14.0-18.0) g/dl Hct (42-52) % MCV (80-98) fL MCH (27.0-33.0) pg MCHC (31.0-36.0) g/dl RDW (11.0-16.0) % Plt Count (160-400) X10*3/uL MPV (9.4-12.4) fL Immature Gran % (Auto) (0.0-0.4) % Neut % (Auto) (45-73) % Lymph % (Auto) (20-40) % [place] % (Auto) (2-11) % Eos % (Auto) (0-4) % Baso % (Auto) (0-2) % Lymph # (Auto) (1.2-4.9) X10*3/uL [place] # (Auto) (0.1-1.2) X10*3/uL Eos # (Auto) (0.0-0.4) X10*3/uL Baso # (Auto) (0.0-0.2) X10*3/uL Abs Immat Gran (auto) (0.00-0.03) X10*3/uL Absolute Neuts (auto) (2.0-8.3) X10*3/uL Absolute Nucleated RBC (0.0-0.012) X10*3/uL Nucleated RBC % (auto) (0.0-0.2) /100WBC PT (10.8-13.0) SEC INR (0.9-1.1) Sodium (135-145) mmol/L Potassium (3.3-5.1) mmol/L Chloride (96-108) mmol/L Carbon Dioxide (22-29) mmol/L Anion Gap (12-20) BUN (9-16) mg/dL Creatinine (0.5-1.4) mg/dL Estim Creat Clear Calc Estimated GFR Random Glucose (60-115) mg/dL Calcium (8.4-10.2) mg/dL Magnesium (1.6-2.6) mg/dL Total Bilirubin (0.0-1.0) mg/dL AST (5-37) U/L ALT (0-40) U/L Alkaline Phosphatase (39-117) U/L Troponin I High Sens (<3.5-35.0) ng/L B-Natriuretic Peptide (<100) pg/mL Total Protein (6.5-8.0) g/dL Albumin (3.5-5.0) g/dL Lipase (8-78) U/L Procalcitonin ng/mL Urine Color YELLOW Urine Appearance CLEAR Urine pH 6.0 (5.0-8.0) Ur Specific [place] >= 1.030 H (1.005-1.025) Urine Protein TRACE (NEG-TRACE) MG/DL Urine Glucose (UA) 250 H (NEG) MG/DL Urine Ketones NEG (NEG) MG/DL Urine Blood 1+ H (NEG) Urine Nitrite NEG (NEG) Ur Leukocyte Esterase NEG (NEG) Urine RBC 1-4 (0) /HPF Urine WBC 0-2 (0-4) /HPF Ur Squamous Epith Cells NONE /LPF Urine Bacteria NONE /LPF Hyaline Casts 0-2 /LPF Urine Mucus 1+ /LPF COVID-19 ([facility]) Negative (Negative) COVID-19 Clin Com See Note ECG Data Attestation: I personally reviewed and interpreted this ECG as follows: Prior ECG tracings: available for review (01/12/2021 no acute changes on comparison) Interpretation: Normal sinus rhythm, HR -82, no evidence of acute ischemia, UT/QRS/QTC are within normal limits. Discharge Plan Discharge Clinical Impression: Intractable hiccups Patient Disposition: Home, Self-Care Instructions: Hiccups (ED) Additional Instructions: Resume all home medications as prescribed. Please follow-up with your primary care provider by calling the office today to set up an appointment for re-evaluation of your lab work. Prescriptions: New chlorpromazine 25 mg tablet 25 mg PO Q6H PRN (Reason: hiccups) Qty: 6 RF: 0 No Action metoprolol succinate 100 mg tablet extended release 24 hr 1 tab PO DAILY RF: 0 Testopel 75 mg pellet RF: 0 chlorthalidone 25 mg tablet 1 tab PO DAILY RF: 0 tamsulosin 0.4 mg capsule 1 cap PO DAILY RF: 0 amlodipine 10 mg tablet 1 tab PO DAILY RF: 0 lisinopril 40 mg tablet 1 tab PO DAILY RF: 0 rosuvastatin 40 mg tablet 1 tab PO DAILY RF: 0 bupropion HCl 150 mg tablet extended release 24 hr 1 tab PO DAILY RF: 0 (DME) pen needle, diabetic [BD Colette 2nd Gen Pen Needle] 32 gauge x 5/32 needle MISCELLANEOUS DAILY RF: 0 Tresiba FlexTouch U-200 200 unit/mL (3 mL) insulin pen 110 unit subcut QPM RF: 0 Triumeq 600-50-300 mg tablet 1 tab PO DAILY RF: 0 Trulicity 1.5 mg/0.5 mL pen injector 1 mg subcut QWEEK RF: 0 doxycycline hyclate 100 mg capsule 100 mg PO BID 7 Days Qty: 14 RF: 0 dexamethasone 6 mg tablet 6 mg PO DAILY 6 Days Qty: 6 RF: 0 Referrals: Physician,Unknown [Primary Care Provider] - 2 days
[2021-01-17 05:28] LABS: Glucose Urine UA 250 MG/DL (NEG); Leukocyte Esterase Urine NEG (NEG); Nitrite Urine NEG (NEG); Specific Gravity - Urine >= 1.030 (1.005-1.025); Urine Blood 1+ (NEG); Urine Ketones NEG (NEG); Urine Protein TRACE MG/DL (NEG-TRACE)
[2021-01-17 05:37] LABS: B Type Natriuretic Peptide 28 pg/mL (<100)
[2021-01-17] MEDS: diphenhydrAMINE HCL 50 MG/ML VIAL 25 MG IVPUSH (05:41)
[2021-01-17] MEDS: Metoclopramide HCl 10 MG/2 ML VIAL IVPUSH (05:41)
[2021-01-17 05:43] LABS: Appearance Urine CLEAR; Color Urine YELLOW
[2021-01-17] MEDS: 0.9 % Sodium Chloride 1,000 ML 999 ML IV (05:45)
[2021-01-17] MEDS: Lidocaine HCl Viscous 2 % 15 ML SOLUTION 10 ML MUCOUS MEM (05:45)
[2021-01-17 05:46] LABS: WBC Urine 0-2 /HPF (0-4)
[2021-01-17] MEDS: Magnesium Hydrox/Alum Hydrox 30 ML ORAL.SUSP PO (05:46)
[2021-01-17 05:47] VITALS: BP 113/70; PULSE 91; RESP 14; O2SAT 98
[2021-01-17 05:47] LABS: Hyaline Casts Urine 0-2 /LPF; Mucus Urine 1+ /LPF
[2021-01-17 05:51] LABS: Procalcitonin 0.04 ng/mL
[2021-01-17 06:33] LABS: COVID-19 Test Negative (Negative)
[2021-01-17 07:27] VITALS: PULSE 86; O2SAT 96
--- NOTE | 2021-01-17 07:27 | PC.NURSE ---
ambulated to bathroom w slow, steady gait, spo2 96% on return from restroom on room air.
== END 2021-01-17 08:43 | disposition home or self-care (01) ==
PROVIDERS: Emergency Provider Student in an Organized Health Care Education/Training Program
DX: R06.6 Hiccough (principal); Z20.822 Contact with and (suspected) exposure to COVID-19; E11.9 Type 2 diabetes mellitus without complications; B20 Human immunodeficiency virus [HIV] disease; I25.2 Old myocardial infarction
CPT/HCPCS: 36415; 71045; 76705; 80053; 81001; 83690; 83735; 83880; 84145; 84484; 85025; 85610; 87635; 93005; 96361; 96374; 96375; 99284; 99285; J1200; J2405; J2765

== ENCOUNTER 2024-06-17 05:24 | Emergency (ER) | payer OTHER, SELFPAY ==
[2022-03-27 08:59] VITALS: BP 136/70; BMI 27.3
[2024-06-17] VITALS (7 sets, daily range): BP systolic 120–184; BP diastolic 72–117; PULSE 78–113; RESP 16–18; TEMP 36.1–36.2; O2SAT 95–97; BMI 26.6
[2024-06-17 05:59] LABS: Glucose, Whole Blood > 600 mg/dL (60-115)
[2024-06-17 05:59] LABS: Glucose, Whole Blood > 600 mg/dL (60-115)
--- OUTSIDE RECORDS SUMMARY | 2024-06-17 06:00 | XMS_ITS | Continuity of Care Document ---
Author Organization [facility] Address [address] [place] [address]- Care Team Providers Care Account Service Representative Name Role Phone Maritza CABEZAS, Bailey Goss Primary Care Physic pierre Encounter [facility] Date(s): 11/09/21 - 12/09/21 [facility] [address] [place] [address]- Allergies, Adverse Reactions, Alerts No Known Allergies Immunizations Given and Recorded Vaccine Date Status Refusal Reason SARS-CoV-2 mRNA ([id number]) vax 10/18/21 Given influenza virus vaccine, inactivated 1 07/10/21 Gi isidra influenza virus vaccine, inactivated 06/09/18 Darryn rded influenza virus vaccine, inactivated 2 06/04/17 Gi isidra influenza virus vaccine, inactivated 3 06/23/16 Gi isidra influenza virus vaccine, inactivated 05/25/14 Give n influenza virus vaccine, inactivated 4 06/10/13 Gi isidra influenza virus vaccine, inactivated 5 05/28/09 Gi isidra SARS-CoV-2 (COVID-19) mRNA BNT-162b2 vac 01/01/21 Recorded SARS-CoV-2 (COVID-19) mRNA BNT-162b2 vac 12/10/20 Recorded Influenza Virus Vaccine (oldterm) 06/13/19 Recorde d pneumococcal 13-valent vaccine 10/03/16 Given Fluvirin (oldterm) 05/23/11 Given Tet/diphth/pertussis, acel (oldterm) 05/23/11 Give n FluLaval (oldterm) 6 06/09/10 Given pneumococcal 23-valent vaccine 7 05/28/09 Given 1Result Comment: [facility] [place]: [id number] 2Admin Note: By Dr Granado 3Admin Note: Dr Granado 4Admin Note: [facility] 5Result Comment: Lot [id number] (Q) [id number] 6Admin Note: dr hall 7Result Comment: [employer] [id number] Medications abacavir 300 mg oral tablet 2 tablet = 600 mg, By Mouth, Daily, # 60 tablet, 0 Refills, Maintenance, 11/10/21 15:20:00 EST, Tablet, [id number], Partial fill upon patient request if the prescription is for a schedule II opioid drug., 175, cm, 10/27/21 13:06:00 EST, Height... Start Date: 11/10/21 Status: Ordered apixaban 5 mg oral tablet 1 tablet = 5 mg, By Mouth, 2 times a day, Coumadin clinic will call with instructions to start, # 60 tablet, 3 Refills, Maintenance, 11/21/21 13:21:00 EDT, Tablet, [id number], Partial fill upon patient request if the prescription is for a sche... Start Date: 11/21/21 Stop Date: 03/21/22 Status: Ordered aspirin 81 mg oral delayed release tablet = 81 mg, By Mouth, Daily, # 30 tablet, 0 Refills, Maintenance, 11/10/21 15:20:00 EST, EC Tablet, [id number], Partial fill upon patient request if the prescription is for a schedule II opioid drug., 175, cm, 10/27/21 13:06:00 EST, Height, 78.5,... Start Date: 11/10/21 Status: Ordered BD UF PEN NEEDLE 4MM x 32G BD UF PEN NEEDLE 4MM x 32G, See Instructions, # 30 each, Refills 11, Tot. Refills 11, Maintenance, Use to inject insulin once daily. E11.65, 08/25/20 11:22:00 EST, Supply, 170, cm, 03/29/20 10:57:00 EDT, Height, 92, kg, 09/14/19 14:18:00 EST, Dry Weight Start Date: 08/25/20 Status: Ordered buPROPion 150 mg/24 hours (XL) oral tablet, extended release 1 tablet, By Mouth, Every 24 hours, # 30 tablet, 0 Refills, Maintenance, 11/10/21 15:20:00 EST, [id number], 1 tablet By Mouth Every 24 hours, 175, cm, 10/27/21 13:06:00 EST, Height, 78.5, kg,10/10/21 0:43:00 EST, Dry Weight Start Date: 11/10/21 Status: Ordered Crestor 40 mg oral tablet 1 tablet = 40 mg, By Mouth, Daily, for 90 days, # 90 tablet, 3 Refills, Hard Stop 11/05/22 10:20:00EST, 11/10/21 10:20:00 EST, Tablet, [id number], 175, cm, 10/27/21 13:06:00 EST, Height, 78.5, kg, 10/10/21 0:43:00 EST, Dry Weight Start Date: 11/10/21 Stop Date: 11/05/22 Status: Ordered Freestyle Lite Lancets See Instructions, # 200 each, Refills 5, Tot. Refills 5, Maintenance, Use to check blood sugars 3 times daily. E11.65, 10/19/21 14:06:00 EST, Compound, 175, cm, 10/19/21 8:07:00 EST, Height, 78.5, kg, 10/10/21 0:43:00 EST, Dry Weight Start Date: 10/19/21 Stop Date: 04/17/22 Status: Ordered Freestyle Lite Monitor See Instructions, # 1 each, Refills 0, Tot. Refills 0, Maintenance, e11.65 Test BG 3 times daily, 07/26/21 12:04:00 EST, e11.65 Test BG 3 times daily, Compound, 170, cm, 07/25/21 8:42:00 EST, Height,92, kg, 09/14/19 14:18:00 EST, Dry Weight Start Date: 07/26/21 Status: Ordered Freestyle Lite Test Strips See Instructions, # 100 each, Refills 8, Tot. Refills 8, Maintenance, Use to check blood sugars 3 times daily. E11.65, 10/19/21 14:09:00 EST, Compound, 175, cm, 10/19/21 8:07:00 EST, Height, 78.5, kg, 10/10/21 0:43:00 EST, Dry Weight Start Date: 10/19/21 Stop Date: 07/16/22 Status: Ordered lamiVUDine 150 mg oral tablet 1 tablet = 150 mg, By Mouth, Daily, # 30 tablet, 0 Refills, Maintenance, 11/10/21 15:20:00 EST, Tablet, [id number], Partial fill upon patient request if the prescription is for a schedule II opioid drug., 175, cm, 10/27/21 13:06:00 EST, Height... Start Date: 11/10/21 Status: Ordered metoprolol 50 mg oral tablet 50 mg, 1, tablet, By Mouth, 2 times a day, # 60 tablet, Refills 0, Tot. Refills 0, Maintenance, 11/10/21 15:20:00 EST, Route to Pharmacy Electronically, [id number], Partial fill upon patient request if the prescription is for a schedule II opi... Start Date: 11/10/21 Status: Ordered NovoLOG FlexPen 100 units/mL subcutaneous solution See Instructions, Subcutaneous Injection, 3 times daily before meals; 100-150 10 units; 151-200 12 units; 201-250 14 units; 251-300 16 units; 301-350 18 units; Over 350 20 units, # 3 each, 5 Refills,Maintenance, 10/19/21 12:47:00 EST, [facility]... Start Date: 10/19/21 Stop Date: 04/17/22 Status: Ordered Pen [place], 31 G x 5 mm BD Ultra Fine III See Instructions, # 100 each, Refills 5, Tot. Refills 5, Maintenance, use as directed for Type 2 Diabetes Mellitus, 10/19/21 12:23:00 EST, Supply, 175, cm, 10/19/21 8:07:00 EST, Height, 78.5, kg, 10/10/21 0:43:00 EST, Dry Weight Start Date: 10/19/21 Stop Date: 04/17/22 Status: Ordered tamsulosin 0.4 mg oral capsule See Instructions, TAKE 1 CAPSULE BY MOUTH EVERY DAY, # 30 capsule, Refills 0, Tot. Refills 0, Soft Stop, 11/10/21 15:20:00 EST, Instructions Replace Required Details, Route to Pharmacy Electronically, [id number], 175, cm, 10/27/21 13:06:00 EST... Start Date: 11/10/21 Stop Date: 12/10/21 Status: Ordered Testopel = 300 mg, Subcutaneous Infusion, Every 3 months, 0 Refills, Maintenance, 03/26/15 23:08:01 Start Date: 03/26/15 Status: Ordered Tresiba FlexTouch 200 units/mL subcutaneous solution See Instructions, Take 28 units daily at lunch. E11.65, # 18 mL, 10 Refills, Maintenance, 03/31/21 10:22:00 EDT, [id number], 170, cm, 03/20/21 9:07:00 EDT, Height, 92, kg, 09/14/19 14:18:00 EST, Dry Weight Start Date: 03/31/21 Status: Ordered Trulicity Pen 3 mg/0.5 mL subcutaneous solution 0.5 mL = 3 mg, Subcutaneous Injection, Every week, Take 3mg once weekly. E11.65., # 2 mL, 5 Refills, Maintenance, 10/26/21 16:50:00 EST, Solution, [id number], Partial fill upon patient request if the prescription is for a schedule II opioid . Start Date: 10/26/21 Status: Ordered Problem List Condition Effective Dates Status Health Status Inform ant Androgen deficiency(Confirmed) Active BPH (benign prostatic hyperplasia)(Confirmed) Active CKD (chronic kidney disease) stage 3, GFR 30-59 ml/min(Confirmed) Active Colonic polyp(Confirmed) Active CAD (coronary artery disease)(Confirmed) Active Coronary artery disease(Confirmed) Active Depression(Confirmed) Active Diabetes mellitus - adult onset(Confirmed) Active Insulin long-term use(Confirmed) Active daytime somnolence(Confirmed) Active Diverticulosis of colon(Confirmed) Active External hemorrhoids(Confirmed) Active History of heart attack(Confirmed) Active HIV(Confirmed) Active Hyperlipidemia(Confirmed) Active Hypertension(Confirmed) Active Hypertensive renal disease w ith renal failure(Confirmed) Active Lipodystrophy associated wit h Human immunodeficiency virus infection(Confirmed) Active Depression, major(Confirmed) Active Microalbuminuria(Confirmed) Active Mixed Hyperlipidemia(Confirmed) 05/23/11 Active Obstructive sleep apnea of adult(Confirmed) 1 Active Hypersomnolence disorder, pe rsistent, mild(Confirmed) Active Respiratory symptom(Confirmed) 2 Active 1mild 2snoring Social History Social History Type Response Smoking Status Former smoker, quit more than 30 days ago entered on: 12/29/18 Sex
--- OUTSIDE RECORDS SUMMARY | 2024-06-17 06:00 | XMS_ITS | Continuity of Care Document ---
Author Organization [facility] Address [address] [place] [address]- Care Team Providers Care Forestry Patrolman Name Role Phone Maritza CABEZAS, Bailey Goss Primary Care Physic pierre [facility]counter [facility] Date[facility]s): 02/11/23 - 03/13/23 [facility] [address] [place] [address]- Allergies, Adverse Reactions, Alerts No Known Allergies Immunizations Given and Recorded Vaccine Date Status Refusal Reason SARS-CoV-2 mRNA ([id number]) vax 10/18/21 Given influenza virus vaccine, inactivated [...] 23-valent vaccine 7 05/28/09 Given 1Result Comment: [facility]: 39340-559-72 2Admin Note: By Dr Granado 3Admin Note: Dr Granado 4Admin Note: [facility] 5Result Comment: Lot [id number] 6Admin Note: dr hall 7Result Comment: [employer] [id number] 27feblo Medications amLODIPine 2.5 mg oral tablet 2.5 mg, 1, tablet, By Mouth, Daily, # 90 tablet, Refills 3, Tot. Refills 3, Maintenance, 10/03/22 15:00:00 EST, Route to Pharmacy Electronically, [id number], Partial fill upon patient requestif the prescription is for a schedule II opioid sandip... Start Date: 10/03/22 Status: Ordered Aricept 10 mg oral tablet 10 mg, 1, tablet, By Mouth, Daily at bedtime, New dose, # 90 tablet, Refills 3, Tot. Refills 3, Maintenance, 12/28/22 16:42:00 EDT, Route to Pharmacy Electronically, [id number], Partial fill upon patient request if the prescription is for a sc... Start Date: 12/28/22 Status: Ordered aspirin 81 mg oral delayed [...] tablet, By Mouth, Every 24 hours, # 90 tablet, 1 Refills, Maintenance, 04/20/22 13:02:00 EDT, [id number], 1 tablet By Mouth Every 24 hours,x90 days, 175, cm, 02/06/22 16:03:00 EDT, Height, 78.5, kg, 10/10/21 0:43:00 EST, Dry Weight Start Date: 04/20/22 Stop Date: 10/17/22 Status: Ordered Cabenuva 400/600 intramuscular suspension, extended release Intramuscular, 2 injections monthly, 0 Refills, Maintenance, 06/19/22 9:08:00 EDT, Partial fill upon patient request if the prescription is for a schedule II opioid drug. Start Date: 06/19/22 Status: Ordered Crestor 40 mg oral tablet 1 tablet = 40 mg, By Mouth, Daily, # 90 tablet, 1 Refills, Maintenance, 03/09/23 4:33:00 EDT, Tablet, [facility]/pharmacy #[id number], 175, cm, 12/28/22 15:56:00 EDT, Height, 81.65, kg, 06/19/22 9:04:00 EDT, Dry Weight Start Date: 03/09/23 Status: Ordered Freestyle Lite Lancets See Instructions, [...] Dry Weight Start Date: 07/26/21 Status: Ordered FREESTYLE LITE TEST STRIP USE DIRECTED TO CHECK BLOOD SUGARS 3X DAILY Start Date: 12/27/22 Status: Ordered FREESTYLE LITE TEST STRIP FREESTYLE LITE TEST STRIP, See Instructions, # 100 Unknown, 13 Refills, Maintenance, USE DIRECTED TO CHECK BLOOD SUGARS 3X DAILY, 12/27/22 16:21:00 EDT, 175, cm, 10/03/22 14:39:00 EST, Height, 81.65, kg, 06/19/22 9:04:00 EDT, Dry Weight Start Date: 12/27/22 Status: Ordered Freestyle Lite Test Strips See Instructions, # 200 each, Refills 0, Tot. Refills 0, Maintenance, use as directed for Type 2 Diabetes Mellitus E11.65, 01/22/23 15:43:00 EDT, Supply, 175, cm, 12/28/22 15:56:00 EDT, Height, 81.65, kg, 06/19/22 9:04:00 EDT, Dry Weight Start Date: 01/22/23 Stop Date: 02/21/23 Status: Ordered Lisinopril = 20 mg, By Mouth, Daily, 0 Refills, Maintenance, 06/19/22 9:07:00 EDT, Partial fill upon patient request if the prescription is for a schedule II opioid drug. Start Date: 06/19/22 Status: Ordered Metoprolol Succinate ER 200 mg oral tablet, extended release 0 Refills, Maintenance, 10/03/22 14:41:00 EST, Partial fill upon patient request if the prescription is for a schedule II opioid drug. Start Date: 10/03/22 Status: Ordered NovoLOG FlexPen 100 units/mL subcutaneous solution See Instructions, Subcutaneous Injection, 3 times daily before meals; give >150 : 10 units 3 times before meals. for TYpe 2 DM 11.65, # 3 each, 8 Refills, Maintenance, 01/12/23 12:47:00 EDT, [facility]/pharmacy #[id number], Partial fill upon patient request if th... Start Date: 01/12/23 Stop Date: 10/09/23 Status: Ordered Pen [place], 31 G x 5 mm BD Ultra Fine III See Instructions, # 100 each, Refills 5, Tot. Refills 5, Maintenance, use as directed for Type 2 Diabetes Mellitus, 10/19/21 12:23:00 EST, Supply, 175, cm, 10/19/21 8:07:00 EST, Height, 78.5, kg, 10/10/21 0:43:00 EST, Dry Weight Start Date: 2/10/22 Stop Date: 04/17/22 Status: Ordered tamsulosin 0.4 mg oral capsule See Instructions, TAKE 1 CAPSULE BY MOUTH EVERY DAY, # 90 capsule, Refills 1, Tot. Refills 1, Soft Stop, 10/29/22 14:53:00 EST, Instructions Replace Required Details, Route to Pharmacy Electronically, [facility]/pharmacy #[id number], 175, cm, 10/03/22 14:39:00 EST... Start Date: 10/29/22 Status: Ordered Testopel = 300 mg, Subcutaneous Infusion, Every 3 months, 0 Refills, Maintenance, 03/26/15 23:08:01 Start Date: 03/26/15 Status: Ordered Tresiba FlexTouch 200 units/mL subcutaneous solution See Instructions, Take 22 units daily at lunch. E11.65, # 9 mL, 10 Refills, Maintenance, 12/31/22 11:09:00 EDT, [facility]/pharmacy #[id number], 175, cm, 12/28/22 15:56:00 EDT, Height, 81.65, kg, 06/19/22 9:04:00EDT, Dry Weight Start Date: 12/31/22 Status: Ordered Trulicity Pen 3 mg/0.5 mL subcutaneous solution 0.5 mL = 3 mg, Subcutaneous Injection, Every week, Take 3mg once weekly. E11.65., # 2 mL, 5 Refills, Maintenance, 10/18/22 16:22:00 EST, Solution, [facility], Partial fill upon patient request if the prescription is for a schedule II... Start Date: 10/18/22 Status: Ordered Problem List Condition Confirmation Course Effective Dates Status H ealth Status Informant Acute UTI Confirmed Active Androgen deficiency Confirmed Active BPH (benign prostatic hyperplasia) Confirmed Active CKD (chronic kidney disease) stage 3, GFR 30-59 ml/min Confirmed Active Colonic polyp Confirmed Active CAD (coronary artery disease) Confirmed Active Coronary artery disease Confirmed Active Depression Confirmed Active Diabetes mellitus - adult onset Confirmed Active Insulin long-term use Confirmed Active daytime somnolence Confirmed Active Diverticulosis of colon Confirmed Active Erythrocytosis Confirmed Active Polycythemia Confirmed Active External hemorrhoids Confirmed Active History of heart attack Confirmed Active HIV Confirmed Active Hyperlipidemia Confirmed Active Hypertension Confirmed Active Hypertensive renal disease with renal failure Confirmed Active 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 Depression, major Confirmed Active Microalbuminuria Confirmed Active Mixed Hyperlipidemia Confirmed 05/23/11 Active Obstructive sleep apnea of adult 1 Confirmed Active Hypersomnolence disorder, persistent, mild Confirmed Active Respiratory symptom 2 Confirmed Active Rotator cuff impingement syndrome of right shoulder Confirmed Active 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 Confirmed Active Dementia Confirmed Active 1mild 2snoring Social History Social History Type Response Smoking Status Former smoker, quit more than 30 days ago entered on: 12/29/18 Sex Patient Care team information Care Team Personnel Name: Nuzhat Sainz Position: [facility] Outreach Member Role: Lifetime Consulting Physician Name: Maritza CABEZAS, Bailey Goss Position: [facility] Physician - Primary Care Member Role: PCP Address: Address: [address] [place] [id number]- Name: Derik Gaines MD Position: [facility] Renal MD Member Role: Lifetime Consulting Physician Address: Address: [address] [place], [place] [address] [place] [address]- Name: Jazmin Florez RN Position: [facility] RN Supv Member Role: Primary Care Nurse Name: Kiana Castelan Position: [facility] Outreach Member Role: Lifetime Consulting Physician Name: Bayron Brandt DO Position: [facility] Renal MD Member Role: Lifetime Consulting Physician Address: Address: [address] [place], [place] [address] [place] [address]- Name: Amie Caldwell PharmD Position: [facility] Associate Professional Member Role: Lifetime Consulting Provider Address: Address: [address] [facility] [place] [address]- [place] Name: Eric Garcia RN Position: [facility] RN Member Role: Primary Care Nurse Name: Jaclyn Schulte RN Position: [facility] RN Member Role: Primary Care Nurse Name: Kavon Liu MD Position: Reference Physician Member Role: Lifetime Consulting Physician Address: Address: [address] [place] [address] [address] [facility] [place] [address]- Care Team Related Persons Name: DANA PERALES Address: home [address] [address] Name: BO PERALES Address: home [address] [address] Name: DANA BALTAZAR Address: home [address] [address] Name: NALDO AVALOS Address: home [address] [facility] [address] [place] [address] Name: NALDO BARNARD Address: home [address] [place] [address]
--- OUTSIDE RECORDS SUMMARY | 2024-06-17 06:00 | XMS_ITS | Continuity of Care Document ---
Author Organization [facility] Address [address] [place] [address]- Care Team Providers Care Shank Threader Name Role Phone Maritza CABEZAS, Bailey Goss Primary Care Physic pierre [place] [facility] [place]09/22 [facility] [address] [place] [address]- Attending Physician: Shanna CABEZAS, Jefferson Calzada Admitting Physician: Jefferson Otero MD Referring Physician: Bailey Salas MD Allergies, Adverse Reactions, Alerts No Known Allergies Immunizations Given and Recorded Vaccine Date Status Refusal Reason SARS-CoV-2 mRNA ([id number]) vax 10/18/21 Given influenza virus vaccine, inactivated [...] vaccine 7 05/28/09 Given 1Result Comment: [facility]: 54718-813-58 2Admin Note: By Dr Granado 3Admin Note: Dr Granado 4Admin Note: [facility] 5Result Comment: Lot [id number] 6Admin Note: dr hall 7Result Comment: [employer] [id number] [id number] 27feblo Medications abacavir 300 mg oral [...] Mouth, Every 24 hours, # 90 tablet, 0 Refills, Maintenance, 12/20/21 15:57:00 EDT, [facility]/pharmacy #[id number], 1 tablet By Mouth Every 24 hours,x90 days, 175, cm, 12/06/21 8:15:00 EDT, Height, 78.5, kg, 10/10/21 0:43:00 EST, Dry Weight Start Date: 12/20/21 Stop Date: 03/20/22 Status: Ordered Crestor 40 mg oral tablet 1 tablet = 40 mg, By Mouth, Daily, for 90 days, # 90 tablet, 3 Refills, Hard Stop 11/05/22 10:20:00EST, 11/10/21 10:20:00 EST, Tablet, [facility]/pharmacy #[id number], 175, cm, 10/27/21 13:06:00 EST, Height, [...] 0 Refills, Maintenance, 11/10/21 15:20:00 EST, Tablet, [facility]/pharmacy #[id number], Partial fill upon patient request if the prescription is for a schedule II opioid drug., 175, cm, 10/27/21 13:06:00 EST, Height... Start Date: 11/10/21 Status: Ordered metoprolol 50 mg oral tablet 50 mg, 1, tablet, By Mouth, 2 times a day, # 180 tablet, Refills 0, Tot. Refills 0, Maintenance, 12/20/21 15:57:00 EDT, Route to Pharmacy Electronically, [facility]/pharmacy #[id number], Partial fill upon patientrequest if the prescription is for a schedule II op... Start Date: 12/20/21 Stop Date: 03/20/22 Status: Ordered NovoLOG FlexPen 100 units/mL subcutaneous solution See Instructions, Subcutaneous Injection, for 30 days, 3 times daily before meals; 100-150 10 units; 151-200 12 units; 201-250 14 units; 251-300 16 units; 301-350 18 units; Over 350 20 units, # 3 each, 5 Refills, Hard Stop 04/17/22 12:47:00 EDT,... Start Date: 10/19/21 Stop Date: 04/17/22 Status: Ordered NovoLOG FlexPen 100 units/mL subcutaneous solution See Instructions, Subcutaneous Injection, 3 times daily before meals; give >150 : 10 units 3 times before meals., # 3 each, 8 Refills, Maintenance, 04/17/22 12:47:00 EDT, [facility]/pharmacy #[id number], Partial fill upon patient request if the prescription is for... Start Date: 04/17/22 Stop Date: 01/12/23 Status: Ordered Pen [place], 31 G x 5 mm BD Ultra [...] MOUTH EVERY DAY, # 90 capsule, Refills 0, Tot. Refills 0, Soft Stop, 12/20/21 15:57:00 EDT, Instructions Replace Required Details, Route to Pharmacy Electronically, [facility]/pharmacy #[id number], 175, cm, 12/06/21 8:15:00 EDT,... Start Date: 12/20/21 Status: Ordered Testopel = 300 mg, Subcutaneous Infusion, Every 3 months, 0 Refills, Maintenance, 03/26/15 23:08:01 Start Date: 03/26/15 Status: Ordered Tresiba FlexTouch 200 units/mL subcutaneous solution See Instructions, Take 28 units daily at lunch. E11.65, # 18 mL, 10 Refills, Maintenance, 03/31/21 10:22:00 EDT, [facility]/pharmacy #[id number], 170, cm, 03/20/21 9:07:00 EDT, Height, 92, kg, 09/14/19 14:18:00 EST, Dry Weight Start Date: 03/31/21 Status: Ordered Trulicity Pen 3 mg/0.5 mL subcutaneous solution 0.5 mL = 3 mg, Subcutaneous Injection, Every week, Take 3mg once weekly. E11.65., # 2 mL, 5 Refills, Maintenance, 02/02/22 10:33:00 EDT, Solution, [facility]/pharmacy #[id number], Partial fill upon patient request if the prescription is for a schedule II opioid . Start Date: 02/02/22 Status: Ordered Problem List Condition Effective Dates [...]
--- OUTSIDE RECORDS SUMMARY | 2024-06-17 06:00 | XMS_ITS | Continuity of Care Document ---
Author Organization [facility] Address [address] [place] [address]- Care Team Providers Care Commercial Development Manager Name Role Phone Maritza CABEZAS, Bailey Goss Primary Care Physic pierre Encounter [facility] Date(s): 11/02/21 - 12/02/21 [facility] [address] [place] [address]- Allergies, Adverse Reactions, Alerts No Known Allergies Immunizations Given and Recorded Vaccine Date Status Refusal Reason SARS-CoV-2 mRNA (kynfssj-[id number]) vax 10/18/21 Given influenza virus vaccine, inactivated [...] vaccine 7 05/28/09 Given 1Result Comment: [facility]: 52808-627-67 2Admin Note: By Dr Granado 3Admin Note: Dr Granado 4Admin Note: [facility] 5Result Comment: Lot [id number] 6Admin Note: dr hall 7Result Comment: [employer] [id number] [id number] 27feblo Medications abacavir 300 mg oral [...] Stop 11/05/22 10:20:00EST, 11/10/21 10:20:00 EST, Tablet, [facility]/pharmacy #[id number], 175, cm, 10/27/21 13:06:00 EST, Height, [...] 0 Refills, Maintenance, 11/10/21 15:20:00 EST, Tablet, [facility]/pharmacy #[id number], Partial fill upon patient request if the prescription is for a schedule II opioid drug., 175, cm, 10/27/21 13:06:00 EST, Height... Start Date: 11/10/21 Status: Ordered metoprolol 50 mg oral tablet 50 mg, 1, tablet, By Mouth, 2 times a day, # 60 tablet, Refills 0, Tot. Refills 0, Maintenance, 11/10/21 15:20:00 EST, Route to Pharmacy Electronically, [facility]/pharmacy #[id number], Partial fill upon patient request if the prescription is for a schedule II opi... Start Date: 11/10/21 Status: Ordered NovoLOG FlexPen 100 units/mL subcutaneous solution See Instructions, Subcutaneous Injection, 3 times daily before meals; 100-150 10 units; 151-200 12 units; 201-250 14 units; 251-300 16 units; 301-350 18 units; Over 350 20 units, # 3 each, 5 Refills,Maintenance, 10/19/21 12:47:00 EST, [facility]... Start Date: 10/19/21 Stop Date: 04/17/22 Status: Ordered Pen [place], 31 G x 5 mm BD Ultra [...] Replace Required Details, Route to Pharmacy Electronically, [facility]/pharmacy #[id number], 175, cm, 10/27/21 13:06:00 EST... Start [...] prescription is for a schedule II opioid dr... Start Date: 10/26/21 Status: Ordered warfarin 1 mg oral tablet See Instructions, Take 4 tablets (4mg tonight), then as directed based on daily INR, # 120 tablet, 0 Refills, Maintenance, 11/10/21 15:20:00 EST, Tablet, [id number], Partial fill upon patientrequest if the prescription is for a schedule II op... Start Date: 11/10/21 Status: Ordered Problem List Condition Effective Dates [...]
--- OUTSIDE RECORDS SUMMARY | 2024-06-17 06:00 | XMS_ITS | Continuity of Care Document ---
Author Organization [facility] Address [address] [place] [id number]- Care Team Providers Care Strategic Partner Development Manager Name Role Phone Geoff Glover DO Primary Care Physician [phone] Encounter [facility] Date(s): 10/06/19 - 02/03/20 [facility] [address] [place] [id number] [facility] Attending Physician: Demetri Ricketts MD Admitting Physician: Demetri Ricketts MD Referring Physician: Julito Don MD Allergies, Adverse Reactions, Alerts Substance Reaction Severity Status NKA Active Immunizations Given and Recorded Vaccine Date Status Refusal Reason Influenza Virus Vaccine (oldterm) 06/13/19 Recorde d influenza virus vaccine, inactivated 06/09/18 Darryn rded influenza virus vaccine, inactivated 1 06/04/17 Gi isidra influenza virus vaccine, inactivated 2 06/23/16 Gi isidra influenza virus vaccine, inactivated 05/25/14 Give n influenza virus vaccine, inactivated 3 06/10/13 Gi isidra influenza virus vaccine, inactivated 4 05/28/09 Gi isidra pneumococcal 13-valent vaccine 10/03/16 Given Fluvirin (oldterm) 05/23/11 Given Tet/diphth/pertussis, acel (oldterm) 05/23/11 Give n FluLaval (oldterm) 5 06/09/10 Given pneumococcal 23-valent vaccine 6 05/28/09 Given 1Admin Note: By Dr Granado 2Admin Note: Dr Granado 3Admin Note: [facility] 4Result Comment: Lot [id number] (E) [id number] 5Admin Note: dr hall 6Result Comment: [employer] [id number] 27feblo Medications amlodipine 10 mg oral tablet 10 mg, 1, tablet, By Mouth, Daily, pharmacy wants 90 days, # 90 tablet, Refills 1, Tot. Refills 1, Maintenance, 07/10/16 21:05:57, Route to Pharmacy Electronically, [id number], [facility]/pharmacy #[id number] Start Date: 07/10/16 Stop Date: 01/06/17 Status: Ordered aspirin 81 mg oral enteric coated tablet 1 tablet = 81 mg, By Mouth, Daily, # 30 tablet, 3 Refills, Maintenance Start Date: 05/27/09 Status: Ordered Augmentin 875 mg-125 mg oral tablet 1 tablet, By Mouth, Every 12 hours, for 7 days, # 14 tablet, 0 Refills, Acute 02/07/20 10:45:00 EDT, 01/31/20 10:45:00 EDT, Tablet, [facility]/pharmacy #[id number], 170.5, cm, 01/31/20 10:18:00 EDT, Height, 92, kg, 09/14/19 14:18:00 EST, Dry Weight Start Date: 01/31/20 Stop Date: 02/07/20 Status: Ordered BD UF RADHA PEN NEEDLE [id number] See Instructions, # 120 Unknown, Refills 5 Tot. Refills 5, USE DAILY, [facility]/pharmacy #[id number] Start Date: 07/10/19 Status: Ordered buPROPion 150 mg/24 hours (XL) oral tablet, extended release 1 tablet = 150 mg, By Mouth, Every 24 hours, # 90 tablet, 1 Refills, Maintenance, 08/26/19 9:56:00 EST, ER Tablet, [facility]/pharmacy #[id number], 1 tablet By Mouth Every 24 hours,x90 days, 170.5, cm, 06/25/19 14:35:00 EDT, Height, 96.4, kg, 10/31/18 8:05:00 EST,... Start Date: 08/26/19 Stop Date: 02/22/20 Status: Ordered chlorthalidone 25 mg oral tablet 25 mg, 1, tablet, By Mouth, Daily, # 30 tablet, Refills 0, Maintenance, 10/15/19 14:30:00 EST Start Date: 10/15/19 Status: Ordered Crestor 40 mg oral tablet 1 tablet = 40 mg, By Mouth, Daily, # 90 tablet, 3 Refills, Maintenance, 08/12/19 16:11:55 EST, Tablet, 170.5, cm, 06/25/19 14:35:50 EDT, Height, 96.4, kg, 10/31/18 8:05:54 EST, Dry Weight Start Date: 08/12/19 Stop Date: 08/06/20 Status: Ordered Egrifta = 2 mg, Subcutaneous Infusion, Daily, 0 Refills, Maintenance, 05/27/18 14:44:17 EDT Start Date: 05/27/18 Status: Ordered Freestyle Lite Lancets See Instructions, # 200 each, Refills 5, Tot. Refills 5, Maintenance, Use to check blood sugars 3 times daily. E11.65, 09/18/19 15:02:00 EST, Compound, 170.5, cm, 09/18/19 14:43:00 EST, Height, 92, kg, 09/14/19 14:18:00 EST, Dry Weight Start Date: 09/18/19 Stop Date: 03/16/20 Status: Ordered Freestyle Lite Monitor See Instructions, # 1 each, Refills 0, Tot. Refills 0, Maintenance, e11.65 Test BG 3 times daily, 10/16/19 9:02:00 EST, e11.65 Test BG 3 times daily, Compound, 170.5, cm, 10/15/19 14:23:00 EST, Height, 92, kg, 09/14/19 14:18:00 EST, Dry Weight Start Date: 10/16/19 Status: Ordered Freestyle Lite Monitor See Instructions, # 1 each, Refills 5, Tot. Refills 5, Maintenance, Use to check blood sugar 3 times daily. E11.65, 09/18/19 15:01:00 EST, Compound, 170.5, cm, 09/18/19 14:43:00 EST, Height, 92, kg, 09/14/19 14:18:00 EST, Dry Weight Start Date: 09/18/19 Stop Date: 03/16/20 Status: Ordered FREESTYLE LITE TEST STRIP See Instructions, # 200 Unknown, Refills 5 Tot. Refills 5, CHECK BLOOD SUGARS 3 TIMES A DAY, [facility]/pharmacy #[id number] Start Date: 03/10/19 Status: Ordered Freestyle Lite Test Strips See Instructions, # 200 each, Refills 5, Tot. Refills 5, Maintenance, CHECK BLOOD SUGARS TID E11.9 DM TYPE 2, 03/09/19 10:11:05 EDT, Compound Start Date: 03/09/19 Status: Ordered Freestyle Lite Test Strips See Instructions, # 100 each, Refills 11, Tot. Refills 11, Maintenance, Use to check blood sugars 3times daily. E11.65, 12/23/19 13:25:00 EDT, Compound, 170.5, cm, 11/23/19 14:33:00 EDT, Height, 92,kg, 09/14/19 14:18:00 EST, Dry Weight Start Date: 12/23/19 Stop Date: 12/17/20 Status: Ordered Insulin Pen needles 32G Insulin Pen needles 32G , See Instructions, # 120 each, Refills 5, Tot. Refills 5, Maintenance,USE DAILY DM2 E11.9, 06/04/18 10:49:05 EDT, Compound Start Date: 06/04/18 Status: Ordered lisinopril 20 mg oral tablet 20 mg, By Mouth, Daily, # 90 tablet, Refills 0, Tot. Refills 0, Maintenance, 07/07/18 11:08:24 EDT,Route to Pharmacy Electronically, [id number], [facility]/pharmacy #[id number] Start Date: 07/07/18 Status: Ordered metFORMIN 500 mg oral tablet, extended release 2 tablet = 1,000 mg, By Mouth, Daily, # 180 tablet, 1 Refills, Maintenance, 11/09/19 16:29:00 EST, [facility]/pharmacy #[id number], D/C RX on file 1000mg not covered by insurance, 170.5, cm, 10/23/19 13:03:00 EST, Height, 92, kg, 09/14/19 14:18:00 EST, Dry Weight Start Date: 11/09/19 Stop Date: 05/07/20 Status: Ordered metoprolol 100 mg oral tablet, extended release 100 mg, 1, tablet, By Mouth, Daily, # 30 tablet, Refills 0, Maintenance, 12/21/15 9:08:37 Start Date: 12/21/15 Status: Ordered nitroglycerin 0.4 mg sublingual tablet 1 tablet = 0.4 mg, Sublingual, Every 5 minutes, PRN for chest pain, If chest pain not relieved in 5minutes after first dose seek medical attention, # 25 tablet, 0 Refills, Maintenance, 02/06/17 11:31:24, Tablet Start Date: 02/06/17 Status: Ordered ONE TOUCH ULTRA LANCETS ONE TOUCH ULTRA LANCETS, See Instructions, # 200 each, Refills 5, Tot. Refills 5, Maintenance, CHECK BLOOD SUGARS QID E11.9 DM TYPE 2, 08/12/17 12:25:00, Compound Start Date: 08/12/17 Status: Ordered tamsulosin 0.4 mg oral capsule See Instructions, # 90 capsule, Refills 1 Tot. Refills 1, TAKE 1 CAPSULE BY MOUTH EVERY DAY, [facility]/pharmacy #[id number] Start Date: 06/01/19 Status: Ordered tamsulosin 0.4 mg oral capsule See Instructions, # 90 capsule, TAKE 1 CAPSULE BY MOUTH EVERY DAY, [facility]/pharmacy #[id number] Start Date: 04/06/19 Status: Ordered Testopel = 300 mg, Subcutaneous Infusion, Every 3 months, 0 Refills, Maintenance, 03/26/15 23:08:01 Start Date: 03/26/15 Status: Ordered traMADol 50 mg oral tablet 1 tablet = 50 mg, By Mouth, Every 12 hours, PRN as needed for pain, # 30 tablet, 0 Refills, Maintenance, 11/27/18 14:40:23 EDT, Tablet Start Date: 11/27/18 Status: Ordered Tresiba FlexTouch 200 units/mL subcutaneous solution See Instructions, Take 110 units daily in the evening. E11.65, # 18 mL, 5 Refills, Maintenance, 09/18/19 15:13:00 EST, [facility]/pharmacy #[id number], D/C RX ON FILE FOR 30 DAY SUPPLY; Rx resent from 07/16/19., 170.5, cm, 09/18/19 14:43:00 EST, Height, 92, kg, ... Start Date: 09/18/19 Status: Ordered Triumeq oral tablet 1 tablet, By Mouth, Daily, # 30 tablet, 0 Refills, Maintenance, 03/26/15 23:03:11, Tablet Start Date: 03/26/15 Status: Ordered Trulicity Pen 1.5 mg/0.5 mL subcutaneous solution 0.5 mL = 1.5 mg, Subcutaneous Injection, Every week, Take 1.5mg once weekly. E11.65. 90-day supply,# 6.5 mL, 3 Refills, Maintenance, 09/18/19 15:11:00 EST, Solution, [facility]/pharmacy #[id number], 170.5, cm, 09/18/19 14:43:00 EST, Height, 92, kg, 09/14/19 14:18... Start Date: 09/18/19 Status: Ordered Problem List Condition Effective Dates Status Health Status Inform ant Androgen deficiency(Confirmed) Active BPH (benign prostatic hyperplasia)(Confirmed) Active CKD (chronic kidney disease) stage 3, GFR 30-59 ml/min(Confirmed) Active Colonic polyp(Confirmed) Active Coronary artery disease(Confirmed) Active Depression(Confirmed) Active [...]
--- OUTSIDE RECORDS SUMMARY | 2024-06-17 06:00 | XMS_ITS | Continuity of Care Document ---
Author Organization [facility] Address [address] [place] [address]- Care Team Providers Care Zipper Cutter Name Role Phone Maritza CABEZAS, Bailey Goss Primary Care Physic pierre Encounter [facility] Date(s): 05/02/21 - 06/01/21 [facility] [address] [place] [address]- Attending Physician: Stanley OUTSIDE MEDICAL SALES REPRESENTATIVE, Crystal Allergies, Adverse Reactions, Alerts Substance Reaction Severity Status NKA Active Immunizations Given and Recorded Vaccine Date Status Refusal Reason SARS-CoV-2 (COVID-19) mRNA BNT-162b2 vac 01/01/21 Recorded [...] 3Admin Note: [facility] 4Result Comment: Lot [id number] (E) [id number] 5Admin Note: dr hall 6Result Comment: [employer] [id number] 27feblo Medications amlodipine 10 mg oral tablet 10 mg, 1, tablet, By Mouth, Daily, pharmacy wants 90 days, # 90 tablet, Refills 1, Tot. Refills 1, Maintenance, 07/10/16 21:05:57, Route to Pharmacy Electronically, [id number], [facility]/pharmacy #[id number] Start Date: 07/10/16 Stop Date: 01/06/17 Status: Ordered aspirin 81 mg oral enteric coated tablet 1 tablet = 81 mg, By Mouth, Daily, # 30 tablet, 3 Refills, Maintenance Start Date: 05/27/09 Status: Ordered BD UF RADHA PEN NEEDLE [id number] See Instructions, # 120 Unknown, Refills 5 Tot. Refills 5, USE DAILY, [facility]pharmacy #[id number] Start Date: 07/10/19 Status: Ordered BD UF PEN NEEDLE 4MM [...] hours, # 90 tablet, 1 Refills, Maintenance, 04/13/21 15:06:00 EDT, [facility]/pharmacy #[id number], 90, 1 tablet By Mouth Every 24 hours, 170, cm, 03/20/21 9:07:00 EDT, Height, 92, kg, 09/14/19 14:18:00 EST, Dry Weight Start Date: 04/13/21 Status: Ordered Crestor 40 mg oral tablet 1 tablet = 40 mg, By Mouth, Daily, # 90 tablet, 3 Refills, Maintenance, 08/30/20 8:19:00 EST, Tablet, [facility]pharmacy #[id number], 170, cm, 03/29/20 10:57:00 EDT, Height, 92, kg, 09/14/19 14:18:00 EST, Dry Weight Start Date: 08/30/20 Stop Date: 08/25/21 Status: Ordered Freestyle Lite Lancets See Instructions, [...] Maintenance, e11.65 Test BG 3 times daily, 01/13/21 11:17:00 EDT, e11.65 Test BG 3 times daily, Compound, 170, cm, 01/11/21 9:05:00 EDT, Height,92, kg, 09/14/19 14:18:00 EST, Dry Weight Start Date: 01/13/21 Status: Ordered FREESTYLE LITE TEST STRIP See Instructions, # 200 Unknown, Refills 5 Tot. Refills 5, CHECK BLOOD SUGARS 3 TIMES A DAY, [facility]/pharmacy #[id number] Start Date: 03/10/19 Status: Ordered Freestyle Lite Test Strips See Instructions, # 200 each, Refills 5, Tot. Refills 5, Maintenance, CHECK BLOOD SUGARS TID E11.9 DM TYPE 2, 03/09/19 10:11:05 EDT, Compound Start Date: 03/09/19 Status: Ordered Freestyle Lite Test Strips See Instructions, # 100 each, Refills 6, Tot. Refills 6, Maintenance, Use to check blood sugars 3 times daily. E11.65, 01/02/21 14:51:00 EDT, Compound, 170, cm, 03/29/20 10:57:00 EDT, Height, 92, kg,09/14/19 14:18:00 EST, Dry Weight Start Date: 01/02/21 Stop Date: 07/31/21 Status: Ordered Insulin Pen needles 32G Insulin Pen needles 32G , See Instructions, # 120 each, Refills 5, Tot. Refills 5, Maintenance,USE DAILY DM2 E11.9, 06/04/18 10:49:05 EDT, Compound Start Date: 06/04/18 Status: Ordered lisinopril 20 mg oral tablet 20 mg, By Mouth, Daily, # 90 tablet, Refills 0, Tot. Refills 0, Maintenance, 07/07/18 11:08:24 EDT,Route to Pharmacy Electronically, [id number], [facility]/pharmacy #[id number] Start Date: 07/07/18 Status: Ordered metoprolol 100 mg oral tablet, [...] TAKE 1 CAPSULE BY MOUTH EVERY DAY, [facility] #[id number] Start Date: 04/06/19 Status: Ordered tamsulosin 0.4 mg oral capsule See Instructions, TAKE 1 CAPSULE BY MOUTH EVERY DAY, # 90 capsule, Refills 1, Tot. Refills 1, Soft Stop, 03/08/21 15:59:00 EDT, Instructions Replace Required Details, Route to Pharmacy Electronically, [facility]/pharmacy #[id number], 170, cm, 02/23/21 11:12:00 EDT... Start Date: 03/08/21 Status: Ordered Testopel = 300 mg, Subcutaneous Infusion, Every 3 months, 0 Refills, Maintenance, 03/26/15 23:08:01 Start Date: 03/26/15 Status: Ordered Tresiba FlexTouch 200 units/mL subcutaneous solution See Instructions, Take 110 units daily in the evening. E11.65, # 18 mL, 10 Refills, Maintenance, 03/31/21 10:22:00 EDT, [facility]/pharmacy #[id number], 170, cm, 03/20/21 9:07:00 EDT, Height, 92, kg, 09/14/19 14:18:00 EST, Dry Weight Start Date: 03/31/21 Status: Ordered Triumeq oral tablet 1 tablet, By Mouth, Daily, # 90 tablet, 0 Refills, Maintenance, 02/02/21 18:11:00 EDT, [facility]/pharmacy#[id number], 1 tablet By Mouth Daily, 170, cm, 01/11/21 9:05:00 EDT, Height, 92, kg, 09/14/19 14:18:00 EST, Dry Weight Start Date: 02/02/21 Status: Ordered Trulicity Pen 3 mg/0.5 mL subcutaneous solution 0.5 mL = 3 mg, Subcutaneous Injection, Every week, Take 3mg once weekly. E11.65., # 2 mL, 5 Refills, Maintenance, 04/05/21 12:10:00 EDT, Solution, [facility]/pharmacy #[id number], Partial fill upon patient request if the prescription is for a schedule II opioid . Start Date: 04/05/21 Status: Ordered Problem List Condition Effective Dates [...]
--- OUTSIDE RECORDS SUMMARY | 2024-06-17 06:00 | XMS_ITS | Continuity of Care Document ---
Author Organization [facility] Address [address] [place] [address]- Care Team Providers Care Bowling Alley Operator Name Role Phone Maritza CABEZAS, Bailey Gsos Primary Care Physic pierre Encounter [facility] Date(s): 03/31/21 - 04/30/21 [facility] [address] [place] [id number] Allergies, Adverse Reactions, Alerts Substance Reaction Severity [...] 3Admin Note: [facility] 4Result Comment: Lot [id number] (E) [id number] 5Admin Note: dr hall 6Result Comment: [employer] [id number] 27feblo Medications amlodipine 10 mg oral tablet 10 mg, 1, tablet, By Mouth, Daily, pharmacy wants 90 days, # 90 tablet, Refills 1, Tot. Refills 1, Maintenance, 07/10/16 21:05:57, Route to Pharmacy Electronically, [id number], [facility]/pharmacy #[id number] Start Date: 07/10/16 Stop Date: 01/06/17 Status: Ordered aspirin 81 mg oral enteric coated tablet 1 tablet = 81 mg, By Mouth, Daily, # 30 tablet, 3 Refills, Maintenance Start Date: 05/27/09 Status: Ordered BD UF RADHA PEN NEEDLE [id number] See Instructions, # 120 Unknown, Refills 5 Tot. Refills 5, USE DAILY, [facility]/pharmacy #[id number] Start Date: 07/10/19 Status: Ordered BD [...] tablet, 1 Refills, Maintenance, 04/13/21 15:06:00 EDT, [facility]/pharmacy #[id number], 90, 1 tablet By Mouth Every 24 hours, 170, cm, 03/20/21 9:07:00 EDT, Height, 92, kg, 09/14/19 14:18:00 EST, Dry Weight Start Date: 04/13/21 Status: Ordered Crestor 40 mg oral tablet 1 tablet = 40 mg, By Mouth, Daily, # 90 tablet, 3 Refills, Maintenance, 08/30/20 8:19:00 EST, Tablet, [facility]/pharmacy #[id number], 170, cm, 03/29/20 10:57:00 EDT, Height, [...] CHECK BLOOD SUGARS 3 TIMES A DAY, [facility]/pharmacy #[id number] Start Date: 03/10/19 Status: Ordered [...] Maintenance, 07/07/18 11:08:24 EDT,Route to Pharmacy Electronically, [id number], [facility]/pharmacy #[id number] Start Date: 07/07/18 Status: Ordered metoprolol 100 mg oral tablet, extended release 100 mg, 1, tablet, By Mouth, Daily, # 30 tablet, Refills 0, Maintenance, 12/21/15 9:08:37 Start Date: 12/21/15 Status: Ordered mupirocin 2% topical ointment 1 application, Topically, 2 times a day, for 14 days, apply to affected skin, # 30 Gm, 0 Refills, Acute 05/04/21 16:48:00 EDT, 04/20/21 16:48:00 EDT, Ointment, [facility]/pharmacy #[id number], Partial fill upon patient request if the prescription is for a schedule... Start Date: 04/20/21 Stop Date: 05/04/21 Status: Ordered nitroglycerin 0.4 mg sublingual tablet [...] TAKE 1 CAPSULE BY MOUTH EVERY DAY, [facility]/pharmacy #[id number] Start Date: 04/06/19 Status: Ordered tamsulosin 0.4 mg oral capsule See Instructions, TAKE 1 CAPSULE BY MOUTH EVERY DAY, # 90 capsule, Refills 1, Tot. Refills 1, Soft Stop, 03/08/21 15:59:00 EDT, Instructions Replace Required Details, Route to Pharmacy Electronically, [facility]/pharmacy #[id number], 170, cm, 02/23/21 11:12:00 EDT... Start Date: 03/08/21 Status: Ordered Testopel = 300 mg, Subcutaneous Infusion, Every 3 months, 0 Refills, Maintenance, 03/26/15 23:08:01 Start Date: 03/26/15 Status: Ordered Tresiba FlexTouch 200 units/mL subcutaneous solution See Instructions, Take 110 units daily in the evening. E11.65, # 18 mL, 10 Refills, Maintenance, 03/31/21 10:22:00 EDT, [facility]/pharmacy #[id number], 170, cm, 03/20/21 9:07:00 EDT, Height, 92, kg, 09/14/19 14:18:00 EST, Dry Weight Start Date: 03/31/21 Status: Ordered Triumeq oral tablet 1 tablet, By Mouth, Daily, # 90 tablet, 0 Refills, Maintenance, 02/02/21 18:11:00 EDT, [facility]/pharmacy#[id number], 1 tablet By Mouth Daily, 170, cm, 01/11/21 9:05:00 EDT, Height, 92, kg, 09/14/19 14:18:00 EST, Dry Weight Start Date: 02/02/21 Status: Ordered Trulicity Pen 3 mg/0.5 mL subcutaneous solution 0.5 mL = 3 mg, Subcutaneous Injection, Every week, Take 3mg once weekly. E11.65., # 2 mL, 5 Refills, Maintenance, 04/05/21 12:10:00 EDT, Solution, [facility]/pharmacy #[id number], Partial fill upon patient request [...]
--- OUTSIDE RECORDS SUMMARY | 2024-06-17 06:00 | XMS_ITS | Continuity of Care Document ---
Author Organization [facility] Address [address] [place] [address]- Care Team Providers Care Ecmo Specialist Name Role Phone Maritza CABEZAS, Bailey Goss Primary Care Physic pierre [facility]): [facility] - [facility]/24 [facility] [address] [place] [address]- [place] Encounter Diagnosis Acute diverticulitis(Discharge Diagnosis) - 02/10/24 Abdominal pain(Discharge Diagnosis) - 02/10/24 Stool incontinence(Discharge Diagnosis) - 02/10/24 Depression, major(Discharge Diagnosis) - 02/10/24 Diarrhea(Discharge Diagnosis) - 02/10/24 Attending Physician: Maritza CABEZAS, Bailey Goss Allergies, Adverse Reactions, Alerts No Known Allergies Immunizations Given and Recorded Vaccine Date Status Refusal Reason zoster vaccine, inactivated 04/19/23 Recorded tetanus/diphtheria/pertussis, acel(Tdap) 03/28/23 Given pneumococcal 23-valent vaccine 03/28/23 Given pneumococcal 23-valent vaccine 1 05/28/09 Given [id number] 12y+ bivalent booster vax 08/28/22 Recorded influenza virus vaccine, inactivated 06/21/22 Darryn rded influenza virus vaccine, inactivated 2 07/10/21 Gi isidra influenza virus vaccine, inactivated 06/01/20 Darryn rded influenza virus vaccine, inactivated 06/09/18 Darryn rded influenza virus vaccine, inactivated 3 06/04/17 Gi isidra influenza virus vaccine, inactivated 4 06/23/16 Gi isidra influenza virus vaccine, inactivated 05/25/14 Give n influenza virus vaccine, inactivated 5 06/10/13 Gi isidra influenza virus vaccine, inactivated 6 05/28/09 Gi isidra SARS-CoV-2 mRNA ([id number]) vax 10/18/21 Given SARS-CoV-2 (COVID-19) mRNA BNT-162b2 vac 01/01/21 Recorded SARS-CoV-2 (COVID-19) mRNA BNT-162b2 vac 12/10/20 Recorded Influenza Virus Vaccine (oldterm) 06/13/19 Recorde d pneumococcal 13-valent vaccine 10/03/16 Given Fluvirin (oldterm) 05/23/11 Given Tet/diphth/pertussis, acel (oldterm) 05/23/11 Give n FluLaval (oldterm) 7 06/09/10 Given 1Result Comment: [employer] [id number] 2Result Comment: [facility]: 60011-748-90 [address]Admin Note: [address] Granado 4Admin Note: Dr Granado 5Admin Note: [facility] 6Result Comment: Lot [id number] ([id number]) [id number] 7Admin Note: dr hall Medications Alcohol Pads See Instructions, # 200 each, Maintenance, check glucose 3 times a day before meal and at bedtime, 10/03/23 1:30:00 EST, Supply, 172, cm, 10/02/23 7:02:00 EST, Height, 76.9, kg, 09/30/23 11:05:00 EST, Dry Weight Start Date: 10/03/23 Status: Ordered amLODIPine 5 mg oral tablet 1 tablet = 5 mg, By Mouth, Daily, blister pack, # 90 tablet, 0 Refills, Maintenance, 10/03/23 1:25:00 EST, Tablet, [facility]/pharmacy #[id number], Partial fill upon patient request if the prescription is for a schedule II opioid drug., 172, cm, 10/02/23 7:02:00 E... Start Date: 10/03/23 Status: Ordered Apnea Rx Apnea Rx, See Instructions, # 1 each, Refills 0, Tot. Refills 0, Maintenance, Use when sleeping to treat sleep apnea G47.33, 10/01/23 16:42:00 EST, Supply, 172, cm, 10/01/23 8:09:00 EST, Height, 76.9, kg, 09/30/23 11:05:00 EST, Dry Weight Start Date: 10/01/23 Status: Ordered aspirin 81 mg oral delayed release tablet 1 tablet = 81 mg, By Mouth, Daily, blister pack, # 90 tablet, 0 Refills, Maintenance, 10/03/23 1:25:00 EST, CR Tablet, [facility]/pharmacy #[id number], Partial fill upon patient request if the prescription is fora schedule II opioid drug., 172, cm, 10/02/23 7:02:... Start Date: 10/03/23 Status: Ordered buPROPion 150 mg/24 hours (XL) oral tablet, extended release 1 tablet = 150 mg, By Mouth, Daily in AM, blister pack, # 90 tablet, 1 Refills, Maintenance, 02/10/24 16:21:00 EDT, XL Tablet, [facility]/pharmacy #[id number], Partial fill upon patient request if the prescription is for a schedule II opioid drug., 1 tablet By Radha... Start Date: 02/10/24 Status: Ordered Cabenuva 600/900 intramuscular suspension, extended release See Instructions, 0 Refills, Maintenance, 09/30/23 9:59:00 EST, Partial fill upon patient request if the prescription is for a schedule II opioid drug. Start Date: 09/30/23 Status: Ordered DIabetes mellitus DIabetes mellitus, See Instructions, # 1 each, Refills 0, Tot. Refills 0, Maintenance, Accucheck Glucometer : Check blood sugar 3 times before meals and at bedtime, 10/03/23 1:30:00 EST, Supply, 172,cm, 10/02/23 7:02:00 EST, Height, 76.9, kg, ... Start Date: 10/03/23 Status: Ordered donepezil 10 mg oral tablet 10 mg, 1, tablet, By Mouth, Daily at bedtime, blister pack, # 90 tablet, Refills 0, Tot. Refills 0,Maintenance, 10/03/23 1:26:00 EST, Route to Pharmacy Electronically, [facility]/pharmacy #[id number], Partial fill upon patient request if the prescription is for a... Start Date: 10/03/23 Status: Ordered finasteride 5 mg oral tablet 1 tablet = 5 mg, By Mouth, Daily, blister pack, # 90 tablet, 0 Refills, Maintenance, 10/03/23 1:27:00 EST, Tablet, [facility]/pharmacy #[id number], Partial fill upon patient request if the prescription is for a schedule II opioid drug., 172, cm, 10/02/23 7:02:00 E... Start Date: 10/03/23 Status: Ordered FreeStyle Bri 2 Monitor See Instructions, # 1 kit, Maintenance, use as directed for type 2 diabetes, 10/03/23 1:31:00 EST, Supply, 172, cm, 10/02/23 7:02:00 EST, Height, 76.9, kg, 09/30/23 11:05:00 EST, Dry Weight Start Date: 10/03/23 Status: Ordered FreeStyle Bri 2 Sensors See Instructions, # 2 kit, Refills 2, Tot. Refills 2, Maintenance, use as directed for type 2 diabetes, 10/03/23 1:31:00 EST, Supply, 172, cm, 10/02/23 7:02:00 EST, Height, 76.9, kg, 09/30/23 11:05:00 EST, Dry Weight Start Date: 10/03/23 Status: Ordered glucose 4 gm oral tablet, chewable 4 tablet = 16 Gm, Chew, Once, PRN as needed for low blood sugar, take whenever the glucose is below70 mg/dL, may repeat in 15 to 20 minutes if blood sugar still < 70 mg/dL, # 50 tablet, 0 Refills, Soft Stop, 10/02/23 12:21:00 EST, Chew Tablet, [facility]... Start Date: 10/02/23 Status: Ordered Lancets See Instructions, # 200 each, Maintenance, check three times a day before meal and at bedtime, 10/03/23 1:30:00 EST, may choose brand covered by his insurance, Supply, 172, cm, 10/02/23 7:02:00 EST, Height, 76.9, kg, 09/30/23 11:05:00 EST, Dry Weight Start Date: 10/03/23 Status: Ordered lisinopril 20 mg oral tablet 20 mg, 1, tablet, By Mouth, Daily, blister pack, # 90 tablet, Refills 0, Tot. Refills 0, Maintenance, 10/03/23 1:27:00 EST, Route to Pharmacy Electronically, [facility]/pharmacy #[id number], Partial fill upon patient request if the prescription is for a schedule I... Start Date: 10/03/23 Status: Ordered metoprolol succinate 200 mg oral capsule, extended release 1 capsule = 200 mg, By Mouth, Daily, blister pack, # 90 capsule, 0 Refills, Maintenance, 10/03/23 1:28:00 EST, ER Capsule, [facility]/pharmacy #[id number], Partial fill upon patient request if the prescription isfor a schedule II opioid drug., 172, cm, 10/02/23 7... Start Date: 10/03/23 Status: Ordered Myrbetriq 50 mg oral tablet, extended release 1 tablet = 50 mg, By Mouth, Daily, blister pack do not crush or chew, # 90 tablet, 0 Refills, Maintenance, 10/03/23 1:28:00 EST, ER Tablet, [facility]/pharmacy #[id number], Partial fill upon patient request if the prescription is for a schedule II opioid drug., 17... Start Date: 10/03/23 Status: Ordered ondansetron 4 mg oral tablet, disintegrating 1 tablet = 4 mg, By Mouth, Every 8 hours, PRN Nausea & Vomiting, # 9 tablet, 0 Refills, Maintenance, 01/30/24 22:44:00 EDT, Tablet, [facility]/pharmacy #[id number], Partial fill upon patient request if the prescription is for a schedule II opioid drug., 175, cm, 0... Start Date: 01/30/24 Stop Date: 02/02/24 Status: Ordered ondansetron 8 mg oral tablet, disintegrating 1 tablet = 8 mg, By Mouth, 3 times a day, PRN Nausea & Vomiting, # 9 tablet, 0 Refills, Maintenance, 01/14/24 20:00:00 EDT, DIS Tablet, [facility]/pharmacy #[id number], Partial fill upon patient request if the prescription is for a schedule II opioid drug., 173, c... Start Date: 01/14/24 Status: Ordered pantoprazole 20 mg oral delayed release tablet = 20 mg, By Mouth, Daily, blister pack, # 90 capsule, 3 Refills, Maintenance, 02/10/24 16:22:00 EDT, EC Tablet, 175, cm, 02/10/24 16:07:00 EDT, Height, 79.5, kg, 01/30/24 16:23:00 EDT, Dry Weight Start Date: 02/10/24 Status: Ordered Pen Shallowater, 31 G x 5 mm BD Ultra Fine III See Instructions, # 200 each, Maintenance, administer insulin daily, 10/03/23 1:30:00 EST, Supply, 172, cm, 10/02/23 7:02:00 EST, Height, 76.9, kg, 09/30/23 11:05:00 EST, Dry Weight Start Date: 10/03/23 Status: Ordered rosuvastatin 40 mg oral tablet 1 tablet = 40 mg, By Mouth, Daily, blister pack, # 90 tablet, 0 Refills, Maintenance, 10/03/23 1:28:00 EST, Tablet, [facility]/pharmacy #[id number], Partial fill upon patient request if the prescription is for a schedule II opioid drug., 172, cm, 10/02/23 7:02:00... Start Date: 10/03/23 Status: Ordered tamsulosin 0.4 mg oral capsule 0.4 mg, 1, capsule, By Mouth, Daily, blister pack, # 90 capsule, Refills 0, Tot. Refills 0, Maintenance, 10/03/23 1:29:00 EST, Route to Pharmacy Electronically, [facility]/pharmacy #[id number], Partial fill upon patient request if the prescription is for a schedul... Start Date: 10/03/23 Status: Ordered Test Strips See Instructions, # 200 each, Maintenance, check glucose 3 times a day before meal and bedtime, 10/03/23 1:31:00 EST, may choose brand covered by his insurance, Supply, 172, cm, 10/02/23 7:02:00 EST,Height, 76.9, kg, 09/30/23 11:05:00 EST, Dry Weight Start Date: 10/03/23 Status: Ordered Test Strips See Instructions, # 500 each, Maintenance, Accucheck: Accucheck Glucometer : Check blood sugar 3 times before meals and at bedtime, 10/01/23 16:42:00 EST, Supply, 172, cm, 10/01/23 8:09:00 EST, Height, 76.9, kg, 09/30/23 11:05:00 EST, Dry Weight Start Date: 10/01/23 Status: Ordered Tresiba FlexTouch 200 units/mL subcutaneous solution = 35 units, Subcutaneous Injection, Daily, rotate injection sites, # 9 mL, 3 Refills, Maintenance, 02/10/24 16:24:00 EDT, Solution, [facility]pharmacy #[id number], Partial fill upon patient request if the prescription is for a schedule II opioid drug., 175, cm, 0... Start Date: 02/10/24 Status: Ordered Trulicity Pen 0.75 mg/0.5 mL subcutaneous solution 0.5 mL = 0.75 mg, Subcutaneous Injection, Every week, rotate injection sites, # 2 mL, 3 Refills, Maintenance, 02/10/24 16:28:00 EDT, Solution, [id number], Partial fill upon patient request ifthe prescription is for a schedule II opioid drug.,... Start Date: 02/10/24 Status: Ordered Problem List Condition Confirmation Course Effective Dates Status H ealth Status Informant Androgen deficiency Confirmed Active BPH (benign prostatic hyperplasia) Confirmed Active CKD (chronic kidney disease) stage 3, GFR 30-59 ml/min Confirmed Active Colonic polyp Confirmed Active CAD (coronary artery disease) Confirmed Active Coronary artery disease Confirmed Active Insulin long-term use Confirmed Active daytime somnolence Confirmed Active Diverticulosis of colon Confirmed Active Erythrocytosis Confirmed Active Polycythemia Confirmed Active External hemorrhoids Confirmed Active History of heart attack Confirmed Active HIV Confirmed Active Hyperlipidemia Confirmed Active Hypertension Confirmed Active Uncontrolled type 2 diabetes mellitus with hyperglycemia, with long-term current use of insulin Confirmed Active 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 Depression, major Confirmed Active Memory problem Confirmed Active Microalbuminuria Confirmed Active Mixed Hyperlipidemia Confirmed 05/23/11 Active Obstructive sleep apnea of adult 1 Confirmed Active Hypersomnolence disorder, persistent, mild Confirmed Active Respiratory symptom 2 Confirmed Active Rotator cuff impingement syndrome of right shoulder Confirmed Active 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 Confirmed Active Type 2 diabetes mellitus with cardiac complication Confirmed Active Dementia Confirmed Active 1mild 2snoring Diagnosis Diagnosis Type Effective Dates Health Status Clinical Service Informant Acute diverticulitis Discharge Diagnosis 02/10/24 Depression, major Discharge Diagnosis 02/10/24 Abdominal pain Discharge Diagnosis 02/10/24 Stool incontinence Discharge Diagnosis 02/10/24 Diarrhea Discharge Diagnosis 02/10/24 Vital Signs Most recent to oldest [Reference Range]: 1 2 3 Height 175 cm (02/10/24 4:39 PM) 175 cm (02/10/24 4:07 PM) 175 cm (02/10/24 3:59 PM) Oxygen Saturation [94-100 %] 96 % (02/10/24 3:59 PM) Pulse Rate [55-90 bpm] 69 bpm (02/10/24 3:59 PM) Blood Pressure [90-138/55-84 mm Hg] 140/82mm Hg *H* (02/10/24 4:39 PM) 153/85mm Hg *H* (02/10/24 4:07 PM) 165/95mm Hg *H* (02/10/24 3:59 PM) Mode of Delivery (Oxygen) Room air (02/10/24 3:59 PM) Blood pressure sites Arm, right (02/10/24 4:07 PM) Arm, right (02/10/24 3:59 PM) Social History Social History Type Response Smoking Status Former smoker, quit more than 30 days ago entered on: 12/29/18 Sex Patient Care team information Care Team Personnel Name: Nuzhat Sainz Position: [facility] Outreach Member Role: Lifetime Consulting Physician Name: Janel Mead RN Position: [facility] RN Member Role: Primary Care Nurse Name: Maritza CABEZAS, Bailey Goss Position: [facility] Physician - Primary Care Member Role: PCP Address: Address: [address] [place] [id number]- Name: Derik Gaines MD Position: [facility] Renal MD Member Role: Lifetime Consulting Physician Address: Address: [address] [place], [place] [address] [place] [address]- Name: Kiana Castelan [place] Position: [facility] [place] Member Role: Lifetime Consulting Physician Name: Bayron Brandt DO Position: [facility] Renal MD Member Role: Lifetime Consulting Physician Address: Address: [address] [place], [place] [address] [place] [address]- Name: Amie Caldwell PharmD Position: [facility] Associate Professional Member Role: Lifetime Consulting Provider Address: Address: [address] [facility] [place] [address]- Name: Eric Garcia RN Position: [facility] RN Member Role: Primary Care Nurse Name: Jaclyn Schulte RN Position: S RN Member Role: Primary Care Nurse Name: Kavon Liu MD Position: Reference Physician Member Role: Lifetime Consulting Physician Address: Address: [address] [place] [address] [address] [facility] [place] [address]- Care Team Related Persons Name: BO PERALES Address: home [address] [place] [address] Name: DANA BALTAZAR Address: home [address] [place] [address] Name: NALDO AVALOS Address: home [address] [place] [address] Name: NALDO BARNARD Address: home [address] [place] [address]
--- OUTSIDE RECORDS SUMMARY | 2024-06-17 06:00 | XMS_ITS | Continuity of Care Document ---
Author Organization [facility] Address [address] [place] [address]- Care Team Providers Care Ancillary Services Manager Name Role Phone Maritza CABEZAS, Bailey Goss Primary Care Physic pierre [facility] - [facility]/[address] [facility] [address] [place] [address]- Allergies, Adverse Reactions, Alerts No Known Allergies Immunizations Given and Recorded Vaccine Date Status Refusal Reason zoster vaccine, inactivated 04/19/23 Recorded tetanus/diphtheria/pertussis, acel(Tdap) 03/28/23 Given pneumococcal 23-valent vaccine 03/28/23 Given pneumococcal 23-valent vaccine 1 05/28/09 Given [id number] 12y+ bivalent booster vax 08/28/22 Recorded influenza [...] inactivated 6 05/28/09 Gi isidra SARS-CoV-2 mRNA ([id number]-[id number]-lznlj) vax 10/18/21 Given SARS-CoV-2 (COVID-19) mRNA BNT-162b2 vac 01/01/21 Recorded SARS-CoV-2 (COVID-19) mRNA BNT-162b2 vac 12/10/20 Recorded Influenza Virus Vaccine (oldterm) 06/13/19 Recorde d pneumococcal 13-valent vaccine 10/03/16 Given Fluvirin (oldterm) 05/23/11 Given Tet/diphth/pertussis, acel (oldterm) 05/23/11 Give n FluLaval (oldterm) 7 06/09/10 Given 1Result Comment: [employer] [id number] [id number] 2Result Comment: [facility]: 60984-987-73 3Admin Note: By Dr Granado 4Admin Note: Dr Granado 5Admin Note: [facility] 6Result Comment: Lot [id number] 7Admin Note: dr hall Medications Alcohol Pads [...] 0 Refills, Maintenance, 10/03/23 1:25:00 EST, Tablet, [id number], Partial fill upon [...] Refills, Maintenance, 10/03/23 1:25:00 EST, CR Tablet, [id number], Partial fill upon patient request if the prescription is fora schedule II opioid drug., 172, cm, 10/02/23 7:02:... Start Date: 10/03/23 Status: Ordered buPROPion 150 mg/24 hours (XL) oral tablet, extended release 1 tablet = 150 mg, By Mouth, Daily in AM, blister pack, # 90 tablet, 1 Refills, Maintenance, 02/10/24 16:21:00 EDT, XL Tablet, [facility]/pharmacy #[id number], Partial fill upon patient request [...] 10/03/23 1:26:00 EST, Route to Pharmacy Electronically, [facility]/pharmacy #[id number], Partial fill upon patient request if the prescription is for a... Start Date: 10/03/23 Status: Ordered finasteride 5 mg oral tablet 1 tablet = 5 mg, By Mouth, Daily, blister pack, # 90 tablet, 0 Refills, Maintenance, 10/03/23 1:27:00 EST, Tablet, [facility]/pharmacy #[id number], Partial fill upon patient request [...] Tablet, [facility]... Start Date: 10/02/23 Status: Ordered Golytely - oral powder for reconstitution 240 mL, By Mouth, Every 10 minutes, # 1 each, 0 Refills, Maintenance, 03/03/24 12:25:00 EDT, REC Powder, [facility]/pharmacy #[id number], Partial fill upon patient request if the prescription is for a schedule IIopioid drug., 240 mL By Mouth Every 10 minutes, 175... Start Date: 03/03/24 Status: Ordered Lancets See Instructions, # 200 [...] 10/03/23 1:27:00 EST, Route to Pharmacy Electronically, [facility]/pharmacy #[id number], Partial fill upon patient request if the prescription is for a schedule I... Start Date: 10/03/23 Status: Ordered metoprolol succinate 200 mg oral capsule, extended release 1 capsule = 200 mg, By Mouth, Daily, blister pack, # 90 capsule, 0 Refills, Maintenance, 10/03/23 1:28:00 EST, ER Capsule, [facility]/pharmacy #[id number], Partial fill upon patient request if the prescription isfor a schedule II opioid drug., 172, cm, 10/02/23 7... Start Date: 10/03/23 Status: Ordered Myrbetriq 50 mg oral tablet, extended release 1 tablet = 50 mg, By Mouth, Daily, blister pack do not crush or chew, # 90 tablet, 0 Refills, Maintenance, 10/03/23 1:28:00 EST, ER Tablet, [facility]/pharmacy #[id number], Partial fill upon patient request if the prescription is for a schedule II opioid drug., 17... Start Date: 10/03/23 Status: Ordered ondansetron 4 mg oral tablet, disintegrating 1 tablet = 4 mg, By Mouth, Every 8 hours, PRN Nausea & Vomiting, # 9 tablet, 0 Refills, Maintenance, 01/30/24 22:44:00 EDT, Tablet, [facility]/pharmacy #[id number], Partial fill upon patient request if the prescription is for a schedule II opioid drug., 175, cm, 0... Start Date: 01/30/24 Stop Date: 02/02/24 Status: Ordered ondansetron 8 mg oral tablet, disintegrating 1 tablet = 8 mg, By Mouth, 3 times a day, PRN Nausea & Vomiting, # 9 tablet, 0 Refills, Maintenance, 01/14/24 20:00:00 EDT, DIS Tablet, [id number], Partial fill upon patient [...] Weight Start Date: 02/10/24 Status: Ordered Pen [place], 31 G x 5 mm BD Ultra [...] 0 Refills, Maintenance, 10/03/23 1:28:00 EST, Tablet, [facility]/pharmacy #[id number], Partial fill upon patient request if the prescription is for a schedule II opioid drug., 172, cm, 10/02/23 7:02:00... Start Date: 10/03/23 Status: Ordered tamsulosin 0.4 mg oral capsule 0.4 mg, 1, capsule, By Mouth, Daily, blister pack, # 90 capsule, Refills 0, Tot. Refills 0, Maintenance, 10/03/23 1:29:00 EST, Route to Pharmacy Electronically, [facility]/pharmacy #[id number], Partial fill upon patient request [...] Care Team Personnel Name: Nuzhat Sainz Position: [facility] Outreach Member Role: Lifetime Consulting Physician Name: Janel Mead RN Position: [facility] RN Member Role: Primary Care Nurse Name: Maritza CABEZAS, Bailey Goss Position: [facility] Physician - Primary Care Member Role: PCP Address: Address: [address] [place] [address]- [place] Name: Derik Gaines MD Position: [facility] Renal MD Member Role: Lifetime Consulting Physician Address: Address: [address] [facility] [address] [facility] [place] [address]- [place] Name: Kiana Castelan [place] Position: [facility] AMB [place] Member Role: Lifetime Consulting Physician Name: Bayron Brandt DO Position: [facility] Renal MD Member Role: Lifetime Consulting Physician Address: Address: [address] [facility] [address] [facility] [place] [address]- [place] Name: Eric Garcia RN Position: [facility] RN Member Role: Primary Care Nurse Name: Jaclyn Schulte RN Position: [facility] RN Member Role: Primary Care Nurse Name: Kavon Liu MD Position: Reference Physician Member Role: Lifetime Consulting Physician Address: Address: [address] [place] [address] [address] [facility] [place] [address]- Care Team Related Persons Name: BO PERALES Address: home [address] [place] [address] Name: DANA BALTAZAR Address: [address] [place] [address] Name: NALDO AVALOS Address: home [address] [place] [address] Name: NALDO BARNARD Address: [address] [place] [address]
--- OUTSIDE RECORDS SUMMARY | 2024-06-17 06:00 | XMS_ITS | Continuity of Care Document ---
Author Organization [facility] ter Address [address] [place] [address]- Care Team Providers Care Wave Solder Offbearer Name Role Phone Maritza CABEZAS, Bailey Goss Primary Care Physic pierre Encounter [facility] Date(s): 05/20/23 - 05/20/[address] [address]- Discharge Disposition: A-D/C Home Attending Physician: Levi Salter MD Admitting Physician: Levi Salter MD Referring Physician: Not on Staff, Referring MD Allergies, Adverse Reactions, Alerts No Known Allergies Immunizations Given and Recorded Vaccine Date Status Refusal Reason tetanus/diphtheria/pertussis, acel(Tdap) 03/28/23 Given pneumococcal 23-valent vaccine 03/28/23 Given pneumococcal 23-valent vaccine 1 05/28/09 Given SARS-CoV-2 mRNA (akyicbz-wypf-kxmgn) vax 10/18/21 Given influenza virus vaccine, inactivated 2 07/10/21 Gi isidra influenza virus vaccine, inactivated 06/09/18 Darryn rded influenza virus vaccine, inactivated 3 06/04/17 Gi isidra influenza virus vaccine, inactivated 4 06/23/16 Gi isidra influenza virus vaccine, inactivated 05/25/14 Give n influenza virus vaccine, inactivated 5 06/10/13 Gi isidra influenza virus vaccine, inactivated 6 05/28/09 Gi isidra SARS-CoV-2 (COVID-19) mRNA BNT-162b2 vac 01/01/21 Recorded SARS-CoV-2 (COVID-19) mRNA BNT-162b2 vac 12/10/20 Recorded Influenza Virus Vaccine (oldterm) 06/13/19 Recorde d pneumococcal 13-valent vaccine 10/03/16 Given Fluvirin (oldterm) 05/23/11 Given Tet/diphth/pertussis, acel (oldterm) 05/23/11 Give n FluLaval (oldterm) 7 06/09/10 Given 1Result Comment: [employer] [id number] 27feblo 2Result Comment: [facility]: [id number] 3Admin Note: By Dr Granado 4Admin Note: Dr Granado 5Admin Note: [facility] 6Result Comment: Lot [id number] 7Admin Note: dr hall Medications acetaminophen-HYDROcodone 325 mg-5 mg oral tablet 1 tablet, By Mouth, Every 4 hours, PRN for pain, # 12 tablet, 0 Refills, Maintenance, 05/20/23 19:47:00 EDT, Tablet, [id number], Partial fill upon patient request if the prescription is for aschedule II opioid drug., 1 tablet By Mouth Every 4... Start Date: 05/20/23 Status: Ordered amLODIPine 5 mg oral tablet 5 mg, 1, tablet, By Mouth, Daily, New dose, # 90 tablet, Refills 3, Tot. Refills 3, Maintenance, 05/10/23 16:19:00 EDT, Route to Pharmacy Electronically, [id number], Partial fill upon patientrequest if the prescription is for a schedule II op... Start Date: 05/10/23 Status: Ordered Aricept 10 mg oral tablet [...] tablet, 1 Refills, Maintenance, 04/20/22 13:02:00 EDT, [facility]/pharmacy #[id number], 1 tablet By Mouth Every [...] 1 Refills, Maintenance, 03/09/23 4:33:00 EDT, Tablet, [facility]/pharmacy #[id number], 175, cm, 12/28/22 [...] each, 8 Refills, Maintenance, 01/12/23 12:47:00 EDT, [facility]/pharmacy #[id number], Partial fill upon patient request if th... Start Date: 01/12/23 Stop Date: 10/09/23 Status: Ordered Pen [place], 31 G x 5 mm BD Ultra [...] 0.4 mg, 1, capsule, By Mouth, Daily, # 90 capsule, Refills 3, Tot. Refills 3, Soft Stop, 05/10/23 16:18:00 EDT, Route to Pharmacy Electronically, [facility]/pharmacy #[id number], 175, cm, 05/10/23 15:59:00 EDT, Height, 81.65, kg, 06/19/22 9:04:00 EDT, Dry Weight Start Date: 05/10/23 Status: Ordered Testopel = 300 mg, Subcutaneous Infusion, Every 3 months, 0 Refills, Maintenance, 03/26/15 23:08:01 Start Date: 03/26/15 Status: Ordered Tresiba FlexTouch 200 units/mL subcutaneous solution See Instructions, Take 22 units daily at lunch. E11.65, # 9 mL, 10 Refills, Maintenance, 12/31/22 11:09:00 EDT, [facility]/pharmacy #[id number], 175, cm, 12/28/22 15:56:00 EDT, Height, 81.65, kg, 06/19/22 9:04:00EDT, Dry Weight Start Date: 12/31/22 Status: Ordered Trulicity Pen 3 mg/0.5 mL subcutaneous solution 0.5 mL = 3 mg, Subcutaneous Injection, Every week, Take 3mg once weekly. E11.65., # 2 mL, 5 Refills, Maintenance, 10/18/22 16:22:00 EST, Solution, [facility], Partial fill upon patient [...] renal disease with renal failure Confirmed Active Uncontrolled type 2 diabetes mellitus [...] Confirmed Active Dementia Confirmed Active 1mild 2snoring Results Radiology Reports * Exam Date Time Procedure Performing Provider Status 05/20/23 8:27 PM Shoulder Min 2 Views Right Ewa Sa tomy; Auth (Verified) Notes: (Shoulder Min 2 Views Right) Reason For Exam: with Pain;Trauma RESULT: Shoulder Min 2 Views Right Shoulder 3 Views Right Reason: Trauma; with Pain; Clinical Question(s): Fracture COMPARISON: Plain films 03/16/2021 FINDINGS: No fracture or dislocation. No arthritic change of the glenohumeral joint. Mild degenerative changes of the AC joint. The portion of the clavicle included on the exam is normal. No calcification of the rotator cuff. Prior median sternotomy. IMPRESSION: No acute bony abnormality. I have personally reviewed the images and I agree with this report. WSN: [id number] Ordering Physician: Levi Salter Dictated By: Justin Mitchell MD Dictated Date/Time: 05/20/23 8:36 pm Reviewed By: Edmar Torres MD Signed By: Edmar Torres MD Signed Date/Time: 05/20/23 8:41 pm Transcribed By: ALEXUS Transcribed Date/Time: 05/20/23 8:31 pm Vital Signs Most recent to oldest [Reference Range]: 1 2 Height 175 cm (05/20/23 3:34 PM) Weight 82.5 kg (05/20/23 3:34 PM) Oxygen Saturation [94-100 %] 96 % (05/20/23 9:31 PM) 98 % (05/20/23 3:34 PM) Pulse Rate [55-90 bpm] 75 bpm (05/20/23 9:31 PM) 78 bpm (05/20/23 3:34 PM) Body Mass Index [18.5-24.99 kg/m2] 26.94 kg/m2 *H* (05/20/23 3:34 PM) Blood Pressure [90-138/55-84 mm Hg] 145/ 80mm Hg *H* (05/20/23 9:31 PM) 155/103mm Hg *H* (05/20/23 3:34 PM) Respiratory Rate [16-30 br/min] 22 br/mi n (05/20/23 9:31 PM) 16 br/min (05/20/23 3:34 PM) Temperature [96.8-100.4 DegF] 98.3 DegF (05/20/23 9:31 PM) 97.5 DegF (05/20/23 3:34 PM) Mode of Delivery (Oxygen) Room air (05/20/23 9:31 PM) Room air (05/20/23 3:34 PM) Blood pressure sites Arm, left (05/20/23 9:31 PM) Arm, left (05/20/23 3:34 PM) Temperature Route Oral (05/20/23 9:31 PM) Oral (05/20/23 3:34 PM) Dry Weight 82.5 kg (05/20/23 3:34 PM) Weight Obtained Via Standing scale (05/20/23 3:34 PM) Dry Weight Obtained Via Standing scale (05/20/23 3:34 PM) Social History Social History Type Response Smoking Status Former smoker, quit more than 30 days ago entered on: 12/29/18 Sex Note * Beth Julio NP: PERFORM Event Display: Patient Education Leaflets Authored Date: [id number] Shoulder Sprain ?? [id number] Shoulder Sprain A sprain is a stretching or tearing of the ligaments that hold a joint together. A sprain may take up to 8 weeks or longer to fully heal, depending on how severe it is. Moderate to severe shoulder sprains are treated with a sling or shoulder immobilizer. Minor sprains can be treated without any special support. Home care The following guidelines will help you care for your injury at home: ??? If a sling was given to you, leave it in place for the time advised by your healthcare provider. If you aren???t sure how longto wear it, ask for advice. If the sling becomes loose, adjust it so that your forearm is parallel to the ground. Your shoulder should feel well supported. ??? Put an ice pack on the injured area for20 minutes every 1 to 2 hours the first day. You can make your own ice pack by putting ice cubes maddi plastic bag. A bag of frozen peas or something similar works well too. Wrap the bag in a thin towel. Continue with ice packs 3 to 4 times a day for the next 2 to 3 days. Then use the pack as neededto ease pain and swelling. ??? You may use acetaminophen or ibuprofen to control pain, unless another pain medicine was prescribed.??If you have chronic liver or kidney disease, talk with your healthcare provider before using these medicines. Also talk with your provider if you???ve had a stomach ulcer, have gastrointestinal bleeding, or take a blood thinner. ??? Shoulder joints become stiff if left in a sling for too long. You should start range of motion exercises usually about 7 to 10 days after the injury. Talk with your provider to find out what type of exercises to do and how soon to start. ?? Follow-up care Follow up with your healthcare provider, or as advised. Any X-rays you had today don???t show any broken bones, breaks, or fractures. Sometimes fractures don???t show up on the first X-ray. Bruises and sprains can sometimes hurt as much as a fracture. These injuries can take time to heal completely. If your symptoms don???t improve or they get worse, talk with your provider. You may need repeat X-rays or other treatments. ?? When to seek medical advice Call your healthcare provider right away??if any of the following occur: ??? Shoulder pain or swelling in your arm that gets worse ??? Fingers become cold, blue, numb, or tingly ??? Large amount of bruising of the shoulder or upper arm ??? Fever or chills ?? Last Reviewed Date: 2022 ?? [id number] [employer]. All rights reserved. This information is not intended as a substitute for professional medical care. Always follow your healthcare professional's instructions. ?? Patient Care team information Care Team Personnel Name: Nuzhat Sainz Position: [facility] Outreach Member Role: Lifetime Consulting Physician Name: Maritza CABEZAS, Bailey Goss Position: [facility] Physician - Primary Care Member Role: PCP Address: Address: [address] [place] [address]- Name: Derik Gaines MD Position: [facility] Renal MD Member Role: Lifetime Consulting Physician Address: Address: [address] [place], [place] [address] [place] [address]- Name: Jazmin Florez RN Position: [facility] RN Supv Member Role: Primary Care Nurse Name: Kiana Castelan MA Position: [facility] [place] Member Role: Lifetime Consulting Physician Name: Bayron Brandt DO Position: [facility] Renal MD Member Role: Lifetime Consulting Physician Address: Address: [address] [place], [place] [address] [place] [address]- Name: Amie Caldwell PharmD Position: [facility] Associate Professional Member Role: Lifetime Consulting Provider Address: Address: [address] [facility] [place] [address]- [place] Name: Eric Garcia RN Position: [facility] RN Member Role: Primary Care Nurse Name: Jaclyn Schulte RN Position: [facility] RN Member Role: Primary Care Nurse Name: Kavon Liu MD Position: Reference Physician Member Role: Lifetime Consulting Physician Address: Address: [address] [place] [address] [address] [facility] [place] [address]- [place] Name: Levi Salter MD Position: [facility] ED Medicine MD Member Role: Admitting Physician Address: Address: [address] [facility] [place] [address]- [place] Name: Beth Julio NP Position: [facility] Associate Professional Member Role: ED Physician Horticultural Nursery Assistant Address: Address: [address] [place] [address]- Name: Turner Davison RN Position: [facility] ED RN W/OE and Tasks Member Role: Patient Care Provider Care Team Related Persons Name: DANA PERALES Address: home [address] [place] [address] Name: BO PERALES Address: home [address] [place] [address] Name: DANA BALTAZAR Address: home [address] [place] [address] Name: NALDO AVALOS Address: home [address] [facility] [address] [place] [address] Name: NALDO BARNARD Address: home [address] [place] [address]
--- OUTSIDE RECORDS SUMMARY | 2024-06-17 06:00 | XMS_ITS | Continuity of Care Document ---
Author Organization [facility] Address [address] [place] [address]- Care Team Providers Care Sign Writer Letterer Or Painter Name Role Phone Maritza CABEZAS, Bailey Goss Primary Care Physic pierre Encounter [facility] Date(s): 11/22/21 - 12/22/21 [facility] [address] [place] [address]- Attending Physician: Marie Ferrer Admitting Physician: AdmMarie pizano Referring Physician: Marie Ferrer Allergies, Adverse Reactions, Alerts No Known Allergies Immunizations Given and Recorded Vaccine Date Status Refusal Reason SARS-CoV-2 mRNA ([id number]-[id number]-mjoho) vax 10/18/21 Given influenza virus vaccine, inactivated [...] 23-valent vaccine 7 05/28/09 Given 1Result Comment: [facility]: [id number] 2Admin Note: By Dr Granado 3Admin Note: Dr Granado 4Admin Note: [facility] 5Result Comment: Lot [id number] 6Admin Note: dr hall 7Result Comment: [employer] [id number] 27feblo Medications abacavir 300 mg oral [...] tablet, 0 Refills, Maintenance, 12/20/21 15:57:00 EDT, [id number], 1 tablet By Mouth Every 24 hours,x90 days, 175, cm, 12/06/21 8:15:00 EDT, Height, 78.5, kg, 10/10/21 0:43:00 EST, Dry Weight Start Date: 12/20/21 Stop Date: 03/20/22 Status: Ordered Crestor 40 mg oral tablet 1 tablet = 40 mg, By Mouth, Daily, for 90 days, # 90 tablet, 3 Refills, Hard Stop 11/05/22 10:20:00EST, 11/10/21 10:20:00 EST, Tablet, [facility]/pharmacy #[id number], 175, cm, 10/27/21 13:06:00 EST, Height, [...] 0 Refills, Maintenance, 11/10/21 15:20:00 EST, Tablet, [facility]/pharmacy #[id number], Partial fill upon patient request if the prescription is for a schedule II opioid drug., 175, cm, 10/27/21 13:06:00 EST, Height... Start Date: 11/10/21 Status: Ordered metoprolol 50 mg oral tablet 50 mg, 1, tablet, By Mouth, 2 times a day, # 180 tablet, Refills 0, Tot. Refills 0, Maintenance, 12/20/21 15:57:00 EDT, Route to Pharmacy Electronically, [facility]/pharmacy #[id number], Partial fill upon patientrequest if the [...] 3 each, 5 Refills,Maintenance, 10/19/21 12:47:00 EST, [facility]... Start Date: 10/19/21 Stop Date: 04/17/22 Status: Ordered Pen [place], 31 G x 5 mm BD Ultra [...] Replace Required Details, Route to Pharmacy Electronically, [facility]/pharmacy #[id number], 175, cm, 12/06/21 8:15:00 EDT,... Start [...]
--- OUTSIDE RECORDS SUMMARY | 2024-06-17 06:00 | XMS_ITS | Continuity of Care Document ---
Author Organization [facility] ter Address [address] [place] [address]- Care Team Providers Care Camera Storage Clerk Name Role Phone Adalberto WEATHERS Geoff Primary Care Physician [facility]counter [facility] Date(s): 10/20/19 - 10/30/[address] [address]- [facility] Attending Physician: Marie Ferrer Admitting Physician: AdmMarie pizano Referring Physician: AdmtrMarie Allergies, Adverse Reactions, Alerts Substance Reaction Severity [...] 3Admin Note: [facility] 4Result Comment: Lot [id number] ([id number]) [id number] 5Admin Note: dr hall 6Result Comment: [employer] [id number] 27feblo Medications amlodipine 10 mg oral tablet 10 mg, 1, tablet, By Mouth, Daily, pharmacy wants 90 days, # 90 tablet, Refills 1, Tot. Refills 1, Maintenance, 07/10/16 21:05:57, Route to Pharmacy Electronically, [id number], [facility]/pharmacy #[id number] Start Date: 07/10/16 Stop Date: 01/06/17 Status: Ordered aspirin 81 mg oral enteric coated tablet 1 tablet = 81 mg, By Mouth, Daily, # 30 tablet, 3 Refills, Maintenance Start Date: 05/27/09 Status: Ordered BD UF RADHA PEN NEEDLE [id number] See Instructions, # 120 Unknown, Refills 5 Tot. Refills 5, USE DAILY, [facility]/pharmacy #0693 Start Date: 07/10/19 Status: Ordered buPROPion 150 mg/24 hours (XL) oral tablet, extended release 1 tablet = 150 mg, By Mouth, Every 24 hours, # 90 tablet, 1 Refills, Maintenance, 08/26/19 9:56:00 EST, ER Tablet, [facility]/pharmacy #0693, 1 tablet By Mouth Every 24 [...] CHECK BLOOD SUGARS 3 TIMES A DAY, [facility]/pharmacy #0693 Start Date: 03/10/19 Status: Ordered Freestyle Lite Test Strips See Instructions, # 200 each, Tot. Refills 5, Maintenance, Use to check blood sugars 3 times daily.E11.65, 09/18/19 15:02:00 EST, Compound, 170.5, cm, 09/18/19 14:43:00 EST, Height, 92, kg, 09/14/2013:18:00 EST, Dry Weight Start Date: 09/18/19 Stop Date: 10/18/19 Status: Ordered Freestyle Lite Test Strips See Instructions, # 200 each, Refills 5, Tot. Refills 5, Maintenance, CHECK BLOOD SUGARS TID E11.9 DM TYPE 2, 03/09/19 10:11:05 EDT, Compound Start Date: 03/09/19 Status: Ordered Insulin Pen needles 32G Insulin Pen needles 32G , See Instructions, # 120 each, Refills 5, Tot. Refills 5, Maintenance,USE DAILY DM2 E11.9, 06/04/18 10:49:05 EDT, Compound Start Date: 06/04/18 Status: Ordered lisinopril 20 mg oral tablet 20 mg, By Mouth, Daily, # 90 tablet, Refills 0, Tot. Refills 0, Maintenance, 07/07/18 11:08:24 EDT,Route to Pharmacy Electronically, [id number], [facility]/pharmacy #[id number] Start Date: 07/07/18 Status: Ordered metFORMIN 500 mg oral tablet, extended release 2 tablet = 1,000 mg, By Mouth, Daily, # 120 tablet, 11 Refills, Maintenance, 10/21/18 17:17:09 EST,[facility]/pharmacy #0693, D/C RX on file 1000mg not covered by insurance Start Date: 10/21/18 Status: Ordered metoprolol 100 mg oral tablet, [...] TAKE 1 CAPSULE BY MOUTH EVERY DAY, [facility]/pharmacy #0693 Start Date: 06/01/19 Status: Ordered tamsulosin 0.4 mg oral capsule See Instructions, # 90 capsule, TAKE 1 CAPSULE BY MOUTH EVERY DAY, [id number] Start Date: 04/06/19 Status: Ordered Testopel [...] mL, 5 Refills, Maintenance, 09/18/19 15:13:00 EST, [facility]/pharmacy #0693, D/C RX ON FILE FOR 30 [...] heart attack(Confirmed) Active HIV(Confirmed) Active Hyperlipidemia(Confirmed) Active Hypersomnia with sleep apnea(Confirmed) Active Hypertension(Confirmed) Active Hypertensive renal disease w ith renal failure(Confirmed) Active Lipodystrophy associated wit h Human immunodeficiency virus infection(Confirmed) Active Depression, major(Confirmed) Active Microalbuminuria(Confirmed) Active Mixed Hyperlipidemia(Confirmed) 05/23/11 Active Obstructive sleep apnea synd claribel, mild(Confirmed) Active Respiratory symptom(Confirmed) 1 Active 1snoring Social History Social History Type Response Smoking Status Former smoker, quit more than 30 days ago entered on: 12/29/18 Sex
--- OUTSIDE RECORDS SUMMARY | 2024-06-17 06:00 | XMS_ITS | Continuity of Care Document ---
Author Organization [facility] Address [address] [place] [address]- Care Team Providers Care Freight Agent Name Role Phone Geoff Glover DO Primary Care Physician Encounter [facility] Date(s): 01/31/20 - 02/07/20 [facility] [address] [place] [address]- [facility] Encounter Diagnosis Dental infection(Discharge Diagnosis) - 01/31/20 Attending Physician: Lincoln Nair Referring Physician: Geoff Glover DO Allergies, Adverse Reactions, Alerts Substance Reaction Severity [...] 3Admin Note: [facility] 4Result Comment: Lot [id number] (E) [id number] 5Admin Note: dr hall 6Result Comment: [employer] [id number] [id number] 27feblo Medications amlodipine 10 mg oral tablet 10 mg, 1, tablet, By Mouth, Daily, pharmacy wants 90 days, # 90 tablet, Refills 1, Tot. Refills 1, Maintenance, 07/10/16 21:05:57, Route to Pharmacy Electronically, [id number], [facility]/pharmacy #[id number] Start Date: 07/10/16 Stop Date: 01/06/17 Status: Ordered aspirin 81 mg oral enteric coated tablet 1 tablet = 81 mg, By Mouth, Daily, # 30 tablet, 3 Refills, Maintenance Start Date: 05/27/09 Status: Ordered BD UF RADHA PEN NEEDLE [id number] See Instructions, # 120 Unknown, Refills 5 Tot. Refills 5, USE DAILY, [facility]/pharmacy #0693 Start Date: 07/10/19 Status: Ordered buPROPion 150 mg/24 hours (XL) oral tablet, extended release 1 tablet = 150 mg, By Mouth, Every 24 hours, # 90 tablet, 1 Refills, Maintenance, 08/26/19 9:56:00 EST, ER Tablet, [facility]/pharmacy #0693, 1 tablet By Mouth Every 24 [...] CHECK BLOOD SUGARS 3 TIMES A DAY, [facility]/pharmacy #0693 Start Date: 03/10/19 Status: Ordered Freestyle [...] Maintenance, 07/07/18 11:08:24 EDT,Route to Pharmacy Electronically, [id number], [facility]/pharmacy #0693 Start Date: 07/07/18 Status: Ordered metFORMIN 500 mg oral tablet, extended release 2 tablet = 1,000 mg, By Mouth, Daily, # 180 tablet, 1 Refills, Maintenance, 11/09/19 16:29:00 EST, [facility]/pharmacy #0693, D/C RX on file 1000mg not [...] BLOOD SUGARS QID E11.9 DM TYPE 2, 12/04/17 12:25:00, Compound Start Date: 08/12/17 Status: Ordered tamsulosin 0.4 mg oral capsule See Instructions, # 90 capsule, Refills 1 Tot. Refills 1, TAKE 1 CAPSULE BY MOUTH EVERY DAY, [facility]/pharmacy #0693 Start Date: 06/01/19 Status: Ordered tamsulosin [...] mL, 5 Refills, Maintenance, 09/18/19 15:13:00 EST, [id number], D[facility]C RX ON FILE FOR 30 [...] Active Respiratory symptom(Confirmed) 2 Active 1mild 2snoring Diagnosis Diagnosis Type Effective Dates Health Status Cl inical Service Informant Dental infection Discharge Diagnosis 01/31/20 Vital Signs Most recent to oldest [Reference Range]: 1 Height 170.5 cm (01/31/20 10:18 AM) Oxygen Saturation [94-100 %] 100 % (01/31/20 10:18 AM) Pulse Rate [55-90 bpm] 81 bpm (01/31/20 10:18 AM) Blood Pressure [90-138/55-84 mm Hg] 151/ 92mm Hg *H* (01/31/20 10:18 AM) Respiratory Rate [16-30 br/min] 20 br/mi n (01/31/20 10:18 AM) Temperature [96.8-100.4 DegF] 98.4 DegF (01/31/20 10:18 AM) Blood pressure sites Arm, right (01/31/20 10:18 AM) Temperature Route Temporal (01/31/20 10:18 AM) Social History Social History Type Response Smoking Status Former smoker, quit more than 30 days ago entered on: 12/29/18 Sex
--- OUTSIDE RECORDS SUMMARY | 2024-06-17 06:00 | XMS_ITS | Continuity of Care Document ---
Author Organization [facility] Address [address] [place] [address]- Care Team Providers Care Bag Turner Name Role Phone Maritza CABEZAS, Bailey Goss Primary Care Physic pierre [facility] Date[facility]): 01/16/21 - 02/15/21 [facility] [address] [place], [place] [address] Allergies, Adverse Reactions, Alerts Substance Reaction Severity [...] 3Admin Note: [facility] 4Result Comment: Lot [id number] (E) [id number] 5Admin Note: dr hall 6Result Comment: [employer] [id number] L287x 27feblo Medications amlodipine 10 mg oral tablet 10 mg, 1, tablet, By Mouth, Daily, pharmacy wants 90 days, # 90 tablet, Refills 1, Tot. Refills 1, Maintenance, 07/10/16 21:05:57, Route to Pharmacy Electronically, [id number], [facility]/pharmacy #[id number] Start Date: 07/10/16 Stop Date: 01/06/17 Status: Ordered aspirin 81 mg oral enteric coated tablet 1 tablet = 81 mg, By Mouth, Daily, # 30 tablet, 3 Refills, Maintenance Start Date: 05/27/09 Status: Ordered BD UF RADHA PEN NEEDLE [id number] See Instructions, # 120 Unknown, Refills 5 Tot. Refills 5, USE DAILY, [facility]/pharmacy #[id number] Start Date: 07/10/19 Status: Ordered [...] hours, # 90 tablet, 1 Refills, Maintenance, 06/13/20 8:06:00 EDT, [facility] STORE [address]32, 90, TAKE 1 TABLET BY MOUTH EVERY 24 HOURS, 170, cm, 03/29/20 10:57:00 EDT, Height, 92, kg, 09/14/19 14:18:00 EST, Dry Weight Start Date: 06/13/20 Status: Ordered Crestor 40 mg oral tablet 1 tablet = 40 mg, By Mouth, Daily, # 90 tablet, 3 Refills, Maintenance, 08/30/20 8:19:00 EST, Tablet, [facility]/pharmacy #[id number], 170, cm, 03/29/20 10:57:00 EDT, [...] CHECK BLOOD SUGARS 3 TIMES A DAY, [facility]/pharmacy #0693 Start Date: 03/10/19 Status: Ordered [...] kg,09/14/19 14:18:00 EST, Dry Weight Start Date: 4/26/21 Stop Date: 07/31/21 Status: Ordered Insulin Pen needles 32G Insulin Pen needles 32G , See Instructions, # 120 each, Refills 5, Tot. Refills 5, Maintenance,USE DAILY DM2 E11.9, 06/04/18 10:49:05 EDT, Compound Start Date: 06/04/18 Status: Ordered lisinopril 20 mg oral tablet 20 mg, By Mouth, Daily, # 90 tablet, Refills 0, Tot. Refills 0, Maintenance, 07/07/18 11:08:24 EDT,Route to Pharmacy Electronically, [id number], [facility]/pharmacy #[id number] Start Date: 07/07/18 Status: Ordered [...] Refills 1, Tot. Refills 1, Soft Stop, 08/31/20 7:23:00 EST, Instructions Replace Required Details, Route to Pharmacy Electronically,[facility]/pharmacy #[id number], 170, cm, 03/29/20 10:57:00 EDT,... Start Date: 08/31/20 Status: Ordered tamsulosin 0.4 mg oral capsule See Instructions, # 90 capsule, TAKE 1 CAPSULE BY MOUTH EVERY DAY, [facility]/pharmacy #[id number] Start Date: 04/06/19 Status: Ordered Testopel = 300 mg, Subcutaneous Infusion, Every 3 months, 0 Refills, Maintenance, 03/26/15 23:08:01 Start Date: 03/26/15 Status: Ordered Tresiba FlexTouch 200 units/mL subcutaneous solution See Instructions, Take 110 units daily in the evening. E11.65, # 18 mL, 5 Refills, Maintenance, 08/25/20 11:22:00 EST, [id number], 170, cm, 03/29/20 10:57:00 EDT, Height, 92, kg, 09/14/19 14:18:00 EST, Dry Weight Start Date: 08/25/20 Status: Ordered Triumeq oral tablet 1 tablet, By Mouth, Daily, # 90 tablet, 0 Refills, Maintenance, 02/02/21 18:11:00 EDT, [facility], 1 tablet By Mouth Daily, 170, cm, 01/11/21 9:05:00 EDT, Height, 92, kg, 09/14/19 14:18:00 EST, Dry Weight Start Date: 02/02/21 Status: Ordered Trulicity Pen 1.5 mg/0.5 mL subcutaneous solution 0.5 mL = 1.5 mg, Subcutaneous Injection, Every week, Take 1.5mg once weekly. E11.65. 90-day supply,# 7.5 mL, 1 Refills, Maintenance, 11/21/20 14:20:00 EDT, Solution, [facility], 170, cm, 03/29/20 10:57:00 EDT, Height, 92, kg, 09/14/19 14:18:0... Start Date: 11/21/20 Status: Ordered Problem List Condition Effective Dates [...]
--- OUTSIDE RECORDS SUMMARY | 2024-06-17 06:00 | XMS_ITS | Continuity of Care Document ---
Author Organization [facility] Address [address] [place] [address]- Care Team Providers Care Dress Operator Name Role Phone Maritza CABEZAS, Bailey Goss Primary Care Physic pierre Encounter [facility] R [id number] Date(s): 12/19/21 - 01/18/22 [facility] [address] [place] [address]- Attending Physician: Marie Ferrer Admitting Physician: AdmMarie pizano Referring Physician: Marie Ferrer Allergies, Adverse Reactions, Alerts No Known Allergies Immunizations Given and Recorded Vaccine Date Status Refusal Reason SARS-CoV-2 mRNA (rkfodry-gqxa-dlute) vax 10/18/21 Given influenza virus vaccine, inactivated [...] 23-valent vaccine 7 05/28/09 Given 1Result Comment: [facility]: 35383-746-57 2Admin Note: By Dr Granado 3Admin Note: Dr Granado 4Admin Note: [facility] 5Result Comment: Lot [id number]) [id number] 6Admin Note: dr hall 7Result Comment: [employer] [id number] L287x 27feblo Medications abacavir 300 mg oral [...] Stop 11/05/22 10:20:00EST, 11/10/21 10:20:00 EST, Tablet, [facility]/pharmacy #[id number], 175, cm, 10/27/21 13:06:00 EST, [...] 0 Refills, Maintenance, 11/10/21 15:20:00 EST, Tablet, [facility]/pharmacy #[id number], Partial fill upon patient request if the prescription is for a schedule II opioid drug., 175, cm, 10/27/21 13:06:00 EST, Height... Start Date: 11/10/21 Status: Ordered metoprolol 50 mg oral tablet 50 mg, 1, tablet, By Mouth, 2 times a day, # 180 tablet, Refills 0, Tot. Refills 0, Maintenance, 12/20/21 15:57:00 EDT, Route to Pharmacy Electronically, [facility]/pharmacy #[id number], Partial fill upon patientrequest if the [...] 3 each, 5 Refills,Maintenance, 10/19/21 12:47:00 EST, [facility]... Start Date: 10/19/21 Stop Date: 04/17/22 Status: Ordered Pen [place], 31 G x 5 mm BD Ultra [...] Replace Required Details, Route to Pharmacy Electronically, [facility]/pharmacy #[id number], 175, cm, 12/06/21 8:15:00 EDT,... Start [...] 5 Refills, Maintenance, 10/26/21 16:50:00 EST, Solution, [facility]/pharmacy #[id number], Partial fill upon patient request [...]
--- OUTSIDE RECORDS SUMMARY | 2024-06-17 06:00 | XMS_ITS | Continuity of Care Document ---
Author Organization [facility] Address [address] [place] [address]- Care Team Providers Care Copy Preparer Name Role Phone Maritza CABEZAS, Bailey Goss Primary Care Physic pierre [place] [facility] [place] - 05/10/21 [facility] [address] [place] [address]- Allergies, Adverse Reactions, Alerts Substance Reaction Severity [...] 3Admin Note: [facility] 4Result Comment: Lot [id number] (E) [id number] 5Admin Note: dr hall 6Result Comment: [employer] [id number] L287x 27feblo Medications amlodipine 10 mg oral tablet 10 mg, 1, tablet, By Mouth, Daily, pharmacy wants 90 days, # 90 tablet, Refills 1, Tot. Refills 1, Maintenance, 07/10/16 21:05:57, Route to Pharmacy Electronically, [id number], [facility]/pharmacy #[id number] Start Date: 07/10/16 Stop Date: 01/06/17 Status: Ordered aspirin 81 mg oral enteric coated tablet 1 tablet = 81 mg, By Mouth, Daily, # 30 tablet, 3 Refills, Maintenance Start Date: 05/27/09 Status: Ordered BD UF RADHA PEN NEEDLE [id number] See Instructions, # 120 Unknown, Refills 5 [...] tablet, 1 Refills, Maintenance, 04/13/21 15:06:00 EDT, [facility]/pharmacy #0693, 90, 1 tablet By Mouth Every [...] CHECK BLOOD SUGARS 3 TIMES A DAY, [facility]/pharmacy #0693 Start Date: 03/10/19 Status: Ordered Freestyle [...] Maintenance, 07/07/18 11:08:24 EDT,Route to Pharmacy Electronically, [id number], [facility]/pharmacy #[id number] Start Date: 07/07/18 Status: Ordered metoprolol [...] Replace Required Details, Route to Pharmacy Electronically, [facility]/pharmacy #0693, 170, cm, 02/23/21 11:12:00 EDT... Start Date: 03/08/21 Status: Ordered Testopel = 300 mg, Subcutaneous Infusion, Every 3 months, 0 Refills, Maintenance, 03/26/15 23:08:01 Start Date: 03/26/15 Status: Ordered Tresiba FlexTouch 200 units/mL subcutaneous solution See Instructions, Take 110 units daily in the evening. E11.65, # 18 mL, 10 Refills, Maintenance, 03/31/21 10:22:00 EDT, [facility]/pharmacy #0693, 170, cm, 03/20/21 9:07:00 EDT, Height, 92, kg, 09/14/19 14:18:00 EST, Dry Weight Start Date: 03/31/21 Status: Ordered Triumeq oral tablet 1 tablet, By Mouth, Daily, # 90 tablet, 0 Refills, Maintenance, 02/02/21 18:11:00 EDT, [facility]/pharmacy#0693, 1 tablet By Mouth Daily, 170, cm, 01/11/21 9:05:00 EDT, Height, 92, kg, 09/14/19 14:18:00 EST, Dry Weight Start Date: 02/02/21 Status: Ordered Trulicity Pen 3 mg/0.5 mL subcutaneous solution 0.5 mL = 3 mg, Subcutaneous Injection, Every week, Take 3mg once weekly. E11.65., # 2 mL, 5 Refills, Maintenance, 04/05/21 12:10:00 EDT, Solution, [facility]/pharmacy #0693, Partial fill [...]
--- OUTSIDE RECORDS SUMMARY | 2024-06-17 06:01 | XMS_ITS | Continuity of Care Document ---
Author Organization [facility] ayush Address [address] [place] [address]- Care Team Providers Care Court Monitor Name Role Phone Maritza CABEZAS, Bailey Goss Primary Care Physic pierre [facility] Date[facility]s): 10/20/21 - 11/26/21 [facility] [address] [place] [address]- Attending Physician: Javier Dodson MD Referring Physician: Ron CABEZAS, Jorge Campo Allergies, Adverse Reactions, Alerts No Known Allergies Immunizations Given and Recorded Vaccine Date Status Refusal Reason SARS-CoV-2 mRNA (aragojo-zuev-ehtsz) vax 10/18/21 Given influenza virus vaccine, inactivated [...] 23-valent vaccine 7 05/28/09 Given 1Result Comment: [facility]: [id number] 2Admin Note: By Dr Granado 3Admin Note: Dr Granado 4Admin Note: [facility] 5Result Comment: Lot [id number]) [id number] 6Admin Note: dr hall 7Result Comment: [employer] [id number] L287x 27feblo Medications abacavir 300 mg oral [...] tablet, 0 Refills, Maintenance, 11/10/21 15:20:00 EST, [facility]/pharmacy #[id number], 1 tablet By Mouth Every 24 hours, 175, cm, 10/27/21 13:06:00 EST, Height, 78.5, kg,10/10/21 0:43:00 EST, Dry Weight Start Date: 11/10/21 Status: Ordered Crestor 40 mg oral tablet 1 tablet = 40 mg, By Mouth, Daily, for 90 days, # 90 tablet, 3 Refills, Hard Stop 11/05/22 10:20:00EST, 11/10/21 10:20:00 EST, Tablet, [facility]/pharmacy #0693, 175, cm, 10/27/21 13:06:00 EST, [...] 0 Refills, Maintenance, 11/10/21 15:20:00 EST, Tablet, [facility]/pharmacy #[id number], Partial fill upon patient request if the prescription is for a schedule II opioid drug., 175, cm, 10/27/21 13:06:00 EST, Height... Start Date: 11/10/21 Status: Ordered metoprolol 50 mg oral tablet 50 mg, 1, tablet, By Mouth, 2 times a day, # 60 tablet, Refills 0, Tot. Refills 0, Maintenance, 11/10/21 15:20:00 EST, Route to Pharmacy Electronically, [facility]/pharmacy #0693, Partial fill upon patient request if the prescription is for a schedule II opi... Start Date: 11/10/21 Status: Ordered NovoLOG FlexPen 100 units/mL subcutaneous solution See Instructions, Subcutaneous Injection, 3 times daily before meals; 100-150 10 units; 151-200 12 units; 201-250 14 units; 251-300 16 units; 301-350 18 units; Over 350 20 units, # 3 each, 5 Refills,Maintenance, 10/19/21 12:47:00 EST, [facility]... Start Date: 10/19/21 Stop Date: 04/17/22 Status: Ordered Pen [place], 31 G x 5 mm BD Ultra [...] Replace Required Details, Route to Pharmacy Electronically, [facility]/pharmacy #[id number], 175, cm, 10/27/21 13:06:00 EST... [...]
--- OUTSIDE RECORDS SUMMARY | 2024-06-17 06:01 | XMS_ITS | Continuity of Care Document ---
Author Organization [facility] Address [address] [place] [address]- Care Team Providers Care Small Craft Operator Name Role Phone Maritza CABEZAS, Bailey Goss Primary Care Physic pierre [facility] Date(s): 03/16/21 - 03/23/21 [facility] [address] [place] [address]- [place] Encounter Diagnosis Pain in right shoulder(Discharge Diagnosis) - 03/16/21 Attending Physician: Bailey Salas MD Allergies, Adverse Reactions, Alerts Substance Reaction [...] 3Admin Note: [facility] 4Result Comment: Lot [id number] (E) [id number] 5Admin Note: dr hall 6Result Comment: [employer] [id number] L287x 27feblo Medications amlodipine 10 mg oral tablet 10 mg, 1, tablet, By Mouth, Daily, pharmacy wants 90 days, # 90 tablet, Refills 1, Tot. Refills 1, Maintenance, 07/10/16 21:05:57, Route to Pharmacy Electronically, [id number], [facility]/pharmacy #[id number] Start Date: 07/10/16 Stop Date: 01/06/17 Status: Ordered aspirin 81 mg oral enteric coated tablet 1 tablet = 81 mg, By Mouth, Daily, # 30 tablet, 3 Refills, Maintenance Start Date: 05/27/09 Status: Ordered BD UF RADHA PEN NEEDLE [id number] See Instructions, # 120 Unknown, Refills 5 Tot. Refills 5, USE DAILY, [facility]/pharmacy #[id number] Start Date: 07/10/19 Status: Ordered [...] tablet, 1 Refills, Maintenance, 06/13/20 8:06:00 EDT, [facility], 90, TAKE 1 TABLET BY MOUTH EVERY 24 HOURS, 170, cm, 03/29/20 10:57:00 EDT, Height, 92, kg, 09/14/19 14:18:00 EST, Dry Weight Start Date: 06/13/20 Status: Ordered Crestor 40 mg oral tablet 1 tablet = 40 mg, By Mouth, Daily, # 90 tablet, 3 Refills, Maintenance, 08/30/20 8:19:00 EST, Tablet, [facility]/pharmacy #0693, 170, cm, 03/29/20 10:57:00 EDT, [...] CHECK BLOOD SUGARS 3 TIMES A DAY, [facility]/pharmacy #0693 Start Date: 03/10/19 Status: Ordered [...] Maintenance, 07/07/18 11:08:24 EDT,Route to Pharmacy Electronically, [id number], [facility]/pharmacy #0693 Start Date: 07/07/18 Status: Ordered [...] Replace Required Details, Route to Pharmacy Electronically, [id number], 170, cm, 02/23/21 11:12:00 EDT... Start Date: 03/08/21 Status: Ordered Testopel = 300 mg, Subcutaneous Infusion, Every 3 months, 0 Refills, Maintenance, 03/26/15 23:08:01 Start Date: 03/26/15 Status: Ordered Tresiba FlexTouch 200 units/mL subcutaneous solution See Instructions, Take 110 units daily in the evening. E11.65, # 18 mL, 5 Refills, Maintenance, 08/25/20 11:22:00 EST, [facility]/pharmacy #0693, 170, cm, 03/29/20 10:57:00 EDT, Height, 92, kg, 09/14/19 14:18:00 EST, Dry Weight Start Date: 08/25/20 Status: Ordered Triumeq oral tablet 1 tablet, By Mouth, Daily, # 90 tablet, 0 Refills, Maintenance, 02/02/21 18:11:00 EDT, [facility]/pharmacy#0693, 1 tablet By Mouth Daily, 170, cm, 01/11/21 9:05:00 EDT, Height, 92, kg, 09/14/19 14:18:00 EST, Dry Weight Start Date: 02/02/21 Status: Ordered Trulicity Pen 1.5 mg/0.5 mL subcutaneous solution 0.5 mL = 1.5 mg, Subcutaneous Injection, Every week, Take 1.5mg once weekly. E11.65. 90-day supply,# 7.5 mL, 1 Refills, Maintenance, 11/21/20 14:20:00 EDT, Solution, [facility]/pharmacy #0693, 170, cm, 03/29/20 10:57:00 EDT, [...] Dates Health Status Cl inical Service Informant Pain in right shoulder Discharge Diagnosis 03/16/21 Vital Signs Most recent to oldest [Reference Range]: 1 Height 170.00 cm (03/16/21 4:23 PM) Pulse Rate [55-90 bpm] 77 bpm (03/16/21 4:23 PM) Blood Pressure [90-138/55-84 mm Hg] 98/5 6mm Hg (03/16/21 4:23 PM) Blood pressure sites Arm, left (03/16/21 4:23 PM) Social History Social History Type Response Smoking Status Former smoker, quit more than 30 days ago entered on: 12/29/18 Sex
--- OUTSIDE RECORDS SUMMARY | 2024-06-17 06:01 | XMS_ITS | Continuity of Care Document ---
Author Organization [facility] Address [address] [place] [address]- Care Team Providers Care Biscuit Factory Worker Name Role Phone Maritza CABEZAS, Bailey Goss Primary Care Physic pierre [facility] Date(s): 06/10/21 - 06/10/[address] [address]- Encounter Diagnosis Shoulder tendonitis(Final) - 06/10/21 Discharge Disposition: A-D/C Home Attending Physician: Luigi Holcomb MD Admitting Physician: Luigi Holcomb MD Referring Physician: Not on Staff, Referring MD Allergies, Adverse Reactions, Alerts Substance Reaction [...] 3Admin Note: [facility] 4Result Comment: Lot [id number] (E) [id number] 5Admin Note: dr hall 6Result Comment: [employer] [id number] L287x 27feblo Medications amlodipine 10 mg oral tablet 10 mg, 1, tablet, By Mouth, Daily, pharmacy wants 90 days, # 90 tablet, Refills 1, Tot. Refills 1, Maintenance, 07/10/16 21:05:57, Route to Pharmacy Electronically, [id number], [facility]/pharmacy #0693 Start Date: 07/10/16 Stop Date: 01/06/17 Status: Ordered aspirin 81 mg oral enteric coated tablet 1 tablet = 81 mg, By Mouth, Daily, # 30 tablet, 3 Refills, Maintenance Start Date: 05/27/09 Status: Ordered BD UF RADHA PEN NEEDLE [id number] See Instructions, # 120 Unknown, Refills 5 [...] tablet, 1 Refills, Maintenance, 04/13/21 15:06:00 EDT, [facility], 90, 1 tablet By Mouth Every 24 hours, 170, cm, 03/20/21 9:07:00 EDT, Height, 92, kg, 09/14/19 14:18:00 EST, Dry Weight Start Date: 04/13/21 Status: Ordered Crestor 40 mg oral tablet 1 tablet = 40 mg, By Mouth, Daily, # 90 tablet, 3 Refills, Maintenance, 08/30/20 8:19:00 EST, Tablet, [facility]/pharmacy #0693, 170, cm, 03/29/20 10:57:00 EDT, Height, [...] CHECK BLOOD SUGARS 3 TIMES A DAY, [facility]/pharmacy #0693 Start Date: 03/10/19 Status: Ordered Freestyle Lite Test Strips See Instructions, # 200 each, Refills 5, Tot. Refills 5, Maintenance, CHECK BLOOD SUGARS TID E11.9 DM TYPE 2, 03/09/19 10:11:05 EDT, Compound Start Date: 03/09/19 Status: Ordered Freestyle Lite Test Strips See Instructions, # 100 each, Refills 8, Tot. Refills 8, Maintenance, Use to check blood sugars 3 times daily. E11.65, 06/07/21 8:33:00 EDT, Compound, 170, cm, 04/20/21 16:19:00 EDT, Height, 92, kg, 09/14/19 14:18:00 EST, Dry Weight Start Date: 06/07/21 Stop Date: 03/04/22 Status: Ordered Insulin Pen needles 32G Insulin Pen needles 32G , See Instructions, # 120 each, Refills 5, Tot. Refills 5, Maintenance,USE DAILY DM2 E11.9, 06/04/18 10:49:05 EDT, Compound Start Date: 06/04/18 Status: Ordered lisinopril 20 mg oral tablet 20 mg, By Mouth, Daily, # 90 tablet, Refills 0, Tot. Refills 0, Maintenance, 07/07/18 11:08:24 EDT,Route to Pharmacy Electronically, [id number], [facility]/pharmacy #0693 Start Date: 07/07/18 Status: Ordered metoprolol [...] TAKE 1 CAPSULE BY MOUTH EVERY DAY, [facility]/pharmacy #0693 Start Date: 04/06/19 Status: Ordered tamsulosin 0.4 mg oral capsule See Instructions, TAKE 1 CAPSULE BY MOUTH EVERY DAY, # 90 capsule, Refills 1, Tot. Refills 1, Soft Stop, 03/08/21 15:59:00 EDT, Instructions Replace Required Details, Route to Pharmacy Electronically, [facility]/pharmacy #[id number], 170, cm, 02/23/21 11:12:00 EDT... Start Date: 03/08/21 Status: Ordered Testopel = 300 mg, Subcutaneous Infusion, Every 3 months, 0 Refills, Maintenance, 03/26/15 23:08:01 Start Date: 03/26/15 Status: Ordered Tresiba FlexTouch 200 units/mL subcutaneous solution See Instructions, Take 110 units daily in the evening. E11.65, # 18 mL, 10 Refills, Maintenance, 03/31/21 10:22:00 EDT, [facility]/pharmacy #0693, 170, cm, 03/20/21 9:07:00 EDT, Height, 92, kg, 09/14/19 14:18:00 EST, Dry Weight Start Date: 03/31/21 Status: Ordered Triumeq oral tablet 1 tablet, By Mouth, Daily, # 90 tablet, 0 Refills, Maintenance, 02/02/21 18:11:00 EDT, [facility]/pharmacy#0693, 1 tablet By Mouth Daily, 170, cm, 01/11/21 9:05:00 EDT, Height, 92, kg, 09/14/19 14:18:00 EST, Dry Weight Start Date: 02/02/21 Status: Ordered Trulicity Pen 3 mg/0.5 mL subcutaneous solution 0.5 mL = 3 mg, Subcutaneous Injection, Every week, Take 3mg once weekly. E11.65., # 2 mL, 5 Refills, Maintenance, 04/05/21 12:10:00 EDT, Solution, [facility]/pharmacy #0693, Partial fill upon patient request if [...] Active Respiratory symptom(Confirmed) 2 Active 1mild 2snoring Vital Signs Most recent to oldest [Reference Range]: 1 2 3 Oxygen Saturation [94-100 %] 100 % (06/10/21 1:14 PM) 100 % (06/10/21 11:14 AM) 100 % (06/10/21 11:11 AM) Pulse Rate [55-90 bpm] 69 bpm (06/10/21 1:14 PM) 70 bpm (06/10/21 11:14 AM) 68 bpm (06/10/21 11:11 AM) Blood Pressure [90-138/55-84 mm Hg] 95/65mm Hg (06/10/21 1:14 PM) 116/68mm Hg (06/10/21 11:14 AM) Respiratory Rate [16-30 br/min] 16 br/min (06/10/21 1:14 PM) 16 br/min (06/10/21 11:14 AM) Temperature [96.8-100.4 DegF] 97.5 DegF (06/10/21 1:14 PM) 97.3 DegF (06/10/21 11:14 AM) Mode of Delivery (Oxygen) Room air (06/10/21 1:14 PM) Room air (06/10/21 11:14 AM) Room air (06/10/21 11:11 AM) Blood pressure sites Arm, left (06/10/21 1:14 PM) Arm, left (06/10/21 11:14 AM) Temperature Route Oral (06/10/21 1:14 PM) Social History Social History Type Response Smoking Status Former smoker, quit more than 30 days ago entered on: 12/29/18 Sex
--- OUTSIDE RECORDS SUMMARY | 2024-06-17 06:01 | XMS_ITS | Continuity of Care Document ---
Author Organization [facility] Address [address] [place] [address]- Care Team Providers Care Elevator Worker Name Role Phone Maritza CABEZAS, Bailey Goss Primary Care Physic pierre [facility]counter [facility] Date(s): 07/04/22 - 08/03/22 [facility] [address] [place] [id number] Allergies, Adverse Reactions, Alerts No Known Allergies Immunizations Given and Recorded Vaccine Date Status Refusal Reason SARS-CoV-2 mRNA ([id number]-fwuc-cdoac) vax 10/18/21 Given influenza virus vaccine, inactivated [...] 23-valent vaccine 7 05/28/09 Given 1Result Comment: [facility]: 69936-848-97 2Admin Note: By Dr Granado 3Admin Note: Dr Granado 4Admin Note: [facility] 5Result Comment: Lot [id number] ([id number]) [id number] 6Admin Note: dr hall 7Result Comment: [employer] [id number] 27feblo Medications aspirin 81 mg oral delayed release tablet [...] Cabenuva 400/600 intramuscular suspension, extended release Intramuscular, 0 Refills, Maintenance, 06/19/22 9:08:00 EDT, Partial fill upon patient request if the prescription is for a schedule II opioid drug. Start Date: 06/19/22 Status: Ordered Crestor 40 mg oral tablet 1 tablet = 40 mg, By Mouth, Daily, for 90 days, # 90 tablet, 3 Refills, Hard Stop 11/05/22 10:20:00EST, 11/10/21 10:20:00 EST, Tablet, [id number], 175, cm, 10/27/21 13:06:00 EST, Height, 78.5, kg, 10/10/21 0:43:00 EST, Dry Weight Start Date: 11/10/21 Stop Date: 11/05/22 Status: Ordered Eliquis 5 mg oral tablet 1 tablet, By Mouth, 2 times a day, # 60 tablet, 3 Refills, [id number], 175, cm, 02/06/22 16:03:00 EDT, Height, 78.5, kg, 10/10/21 0:43:00 EST, Dry Weight Start Date: 03/30/22 Status: Ordered Freestyle Lite Lancets See Instructions, [...] Freestyle Lite Test Strips See Instructions, # 450 each, Refills 2, Tot. Refills 2, Maintenance, 90 day supply Use to check blood sugars 3 times daily. E11.65, 07/16/22 14:09:00 EST, Compound, 175, cm, 06/19/22 9:04:00 EDT, Height, 81.65, kg, 06/19/22 9:04:00 EDT, Dry Weight Start Date: 07/16/22 Stop Date: 10/14/22 Status: Ordered Lisinopril = 20 mg, By Mouth, Daily, 0 Refills, Maintenance, 06/19/22 9:07:00 EDT, Partial fill upon patient request if the prescription is for a schedule II opioid drug. Start Date: 06/19/22 Status: Ordered metoprolol 50 mg oral tablet 50 mg, 1, tablet, By Mouth, 2 times a day, # 180 tablet, Refills 0, Tot. Refills 0, Maintenance, 12/20/21 15:57:00 EDT, Route to Pharmacy Electronically, [facility] #[id number], Partial fill upon patientrequest if the prescription is for a schedule II op... Start Date: 12/20/21 Stop Date: 03/20/22 Status: Ordered NovoLOG FlexPen 100 units/mL subcutaneous solution See Instructions, Subcutaneous Injection, 3 times daily before meals; give >150 : 10 units 3 times before meals., # 3 each, 8 Refills, Maintenance, 04/17/22 12:47:00 EDT, [facility]/pharmacy #[id number], Partial fill upon patient request if the prescription is for... Start Date: 04/17/22 Stop Date: 01/12/23 Status: Ordered Pen [place], 31 G x 5 mm BD Ultra [...] Refills 1, Tot. Refills 1, Soft Stop, 04/20/22 13:02:00 EDT, Instructions Replace Required Details, Route to Pharmacy Electronically, [facility]/pharmacy #[id number], 175, cm, 02/06/22 16:03:00 EDT... Start Date: 04/20/22 Status: Ordered Testopel = 300 mg, Subcutaneous Infusion, Every 3 months, 0 Refills, Maintenance, 03/26/15 23:08:01 Start Date: 03/26/15 Status: Ordered Tresiba FlexTouch 200 units/mL subcutaneous solution See Instructions, Take 22 units daily at lunch. E11.65, # 9 mL, 10 Refills, Maintenance, 05/28/22 13:10:00 EDT, [id number], 175, cm, 02/06/22 16:03:00 EDT, Height, 78.5, kg, 10/10/21 0:43:00 EST, Dry Weight Start Date: 05/28/22 Status: Ordered Trulicity Pen 3 mg/0.5 mL subcutaneous solution 0.5 mL = 3 mg, Subcutaneous Injection, Every week, Take 3mg once weekly. E11.65., # 2 mL, 5 Refills, Maintenance, 02/02/22 10:33:00 EDT, Solution, [id number], Partial fill upon patient request if the prescription is for a schedule II opioid . Start Date: 02/02/22 Status: Ordered Problem List Condition Confirmation Course [...] Confirmed Active Diverticulosis of colon Confirmed Active External hemorrhoids Confirmed Active History [...] Confirmed Active Respiratory symptom 2 Confirmed Active 1mild 2snoring Social History Social History Type Response Smoking Status Former smoker, quit more than 30 days ago entered on: 12/29/18 Sex Patient Care team information Care Team Personnel Name: Nuzhat Sainz Position: [facility] Outreach Member Role: Lifetime Consulting Physician Name: Maritza CABEZAS, Bailey Goss Position: [facility] Primary Care Physician Member Role: PCP Address: Address: [address] [place] [address]- Name: Derik Gaines MD Position: [facility] Renal MD Member Role: Lifetime Consulting Physician Address: Address: [address] [place] [address] [address] [facility] [place] [address]- [place] Name: Jazmin Florez RN Position: [facility] RN Supv Member Role: Primary Care Nurse Name: Kiana Castelan Position: [facility] Outreach Member Role: Lifetime Consulting Physician Name: Bayron Brandt DO Position: [facility] Renal MD Member Role: Lifetime Consulting Physician Address: Address: [address] [facility] [address] [facility] [place] [address]- [place] Name: Amie Caldwell PharmD Position: [facility] Associate Professional Member Role: Lifetime Consulting Provider Address: Address: [address] [facility] [place] [address]- [place] Name: Eric Garcia RN Position: [facility] RN Member Role: Primary Care Nurse Name: Jaclyn Schulte RN Position: [facility] RN Member Role: Primary Care Nurse Name: Kavon Liu MD Position: [facility] Physician (General Medicine) Member Role: Lifetime Consulting Physician Address: Address: [address] [place] [address], [address] [place] [address]- Care Team Related Persons Name: DANA PERALES Address: home [address] [address] Name: BO PERALES Address: home [address] [place] [address] Name: DANA BALTAZAR Address: home [address] [place] [address] Name: NALDO AVALOS Address: [address] [place] [address] Name: NALDO BARNARD Address: home [address] [place] [address]
--- OUTSIDE RECORDS SUMMARY | 2024-06-17 06:01 | XMS_ITS | Continuity of Care Document ---
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 Name Role Phone Maritza CABEZAS, Bailey Goss Primary Care Physic pierre Encounter [facility] Date(s): 10/23/21 - 11/22/21 [facility] [address] [place] [address]- [place] Allergies, Adverse Reactions, Alerts No Known Allergies Immunizations Given and Recorded Vaccine Date Status Refusal Reason SARS-CoV-2 mRNA (vduxszs-[id number]-foffr) vax 10/18/21 Given influenza virus vaccine, inactivated [...] 23-valent vaccine 7 05/28/09 Given 1Result Comment: [facility]: 25867-471-62 2Admin Note: By Dr Granado 3Admin Note: Dr Granado 4Admin Note: [facility] 5Result Comment: Lot [id number] (E) [id number] 6Admin Note: dr hall 7Result Comment: [employer] [id number] [id number] 27feblo Medications abacavir 300 mg oral [...] Stop 11/05/22 10:20:00EST, 11/10/21 10:20:00 EST, Tablet, [facility]/pharmacy #[id number], 175, cm, 10/27/21 13:06:00 [...] 0 Refills, Maintenance, 11/10/21 15:20:00 EST, Tablet, [facility]/pharmacy #[id number], Partial fill upon patient request if the prescription is for a schedule II opioid drug., 175, cm, 10/27/21 13:06:00 EST, Height... Start Date: 11/10/21 Status: Ordered metoprolol 50 mg oral tablet 50 mg, 1, tablet, By Mouth, 2 times a day, # 60 tablet, Refills 0, Tot. Refills 0, Maintenance, 11/10/21 15:20:00 EST, Route to Pharmacy Electronically, [facility]/pharmacy #[id number], Partial fill upon patient [...] each, 5 Refills,Maintenance, 10/19/21 12:47:00 EST, [facility] P... Start Date: 10/19/21 Stop Date: 04/17/22 Status: Ordered Pen [place], 31 G x 5 mm BD Ultra [...] Replace Required Details, Route to Pharmacy Electronically, [facility]/pharmacy #[id number], 175, cm, 10/27/21 13:06:00 [...]
--- OUTSIDE RECORDS SUMMARY | 2024-06-17 06:01 | XMS_ITS | Continuity of Care Document ---
Author Organization [facility] Address [address] [place] [address]- Care Team Providers Care Assembly Inspector Helper Name Role Phone Maritza CABEZAS, Bailey Goss Primary Care Physic pierre [facility]counter [facility] Date(s): 06/19/22 - 06/26/22 [facility] [address] [place], [place] [address] Attending Physician: Jonnathan Jesus MD Admitting Physician: Jonnathan Jesus MD Referring Physician: Bailey Salas MD Allergies, Adverse Reactions, Alerts No Known Allergies Immunizations Given and Recorded Vaccine Date Status Refusal Reason SARS-CoV-2 mRNA ([id number]) vax 10/18/21 Given influenza virus vaccine, inactivated [...] Given 1Result Comment: [facility]: [id number] 2Admin Note: By Dr Granado 3Admin Note: Dr Granado 4Admin Note: [facility] 5Result Comment: Lot [id number] Марина) [id number] 6Admin Note: dr hall 7Result Comment: [employer] [id number] L287x 27feblo Medications aspirin 81 mg oral delayed release tablet = 81 mg, By Mouth, Daily, # 30 tablet, 0 Refills, Maintenance, 11/10/21 15:20:00 EST, EC Tablet, [facility]/pharmacy #[id number], Partial fill upon patient request [...] tablet, 1 Refills, Maintenance, 04/20/22 13:02:00 EDT, [facility]/pharmacy #[id number], 1 tablet By Mouth Every [...] Stop 11/05/22 10:20:00EST, 11/10/21 10:20:00 EST, Tablet, [facility]/pharmacy #[id number], 175, cm, 10/27/21 13:06:00 EST, Height, 78.5, kg, 10/10/21 0:43:00 EST, Dry Weight Start Date: 11/10/21 Stop Date: 11/05/22 Status: Ordered Eliquis 5 mg oral tablet 1 tablet, By Mouth, 2 times a day, # 60 tablet, 3 Refills, [id number], 175, cm, 02/06/22 16:03:00 EDT, Height, 78.5, [...] Date: 10/19/21 Stop Date: 07/16/22 Status: Ordered Lisinopril = 20 mg, By [...] 12/20/21 15:57:00 EDT, Route to Pharmacy Electronically, [facility]/pharmacy #[id number], Partial fill upon patientrequest if the prescription is for a schedule II op... Start Date: 12/20/21 Stop Date: 03/20/22 Status: Ordered NovoLOG FlexPen 100 units/mL subcutaneous solution See Instructions, Subcutaneous Injection, 3 times daily before meals; give >150 : 10 units 3 times before meals., # 3 each, 8 Refills, Maintenance, 04/17/22 12:47:00 EDT, [facility]/pharmacy #[id number], Partial fill upon patient request if the prescription is for... Start Date: 04/17/22 Stop Date: 01/12/23 Status: Ordered Pen [place], 31 G x 5 mm BD Ultra [...] Replace Required Details, Route to Pharmacy Electronically, [facility]/pharmacy #[id number], 175, cm, 02/06/22 16:03:00 EDT... Start [...] Respiratory symptom 2 Confirmed Active 1mild 2snoring Vital Signs Most recent to oldest [Reference Range]: 1 Height 175 cm (06/19/22 9:04 AM) Weight 81.65 kg (06/19/22 9:04 AM) Oxygen Saturation [94-100 %] 97 % (06/19/22 9:04 AM) Pulse Rate [55-90 bpm] 78 bpm (06/19/22 9:04 AM) Body Mass Index [18.5-24.99 kg/m2] 26.66 kg/m2 *H* (06/19/22 9:04 AM) Blood Pressure [90-138/55-84 mm Hg] 140/ 82mm Hg *H* (06/19/22 9:04 AM) Mode of Delivery (Oxygen) Room air (06/19/22 9:04 AM) Blood pressure sites Arm, left (06/19/22 9:04 AM) Dry Weight 81.65 kg (06/19/22 9:04 AM) Weight Obtained Via Patient/family state d (06/19/22 9:04 AM) Dry Weight Obtained Via Patient/family s tated (06/19/22 9:04 AM) Social History Social History Type Response Smoking Status Former smoker, quit more than 30 days ago entered on: 12/29/18 Sex Patient Care team information Personnel Name: Maritza CABEZAS, Bailey Goss Address: Address: [address] [place] [address] [address]
--- OUTSIDE RECORDS SUMMARY | 2024-06-17 06:01 | XMS_ITS | Continuity of Care Document ---
Author Organization [facility] Address [address] [place] [address]- Care Team Providers Care Real Estate Officer Name Role Phone Maritza CABEZAS, Bailey Goss Primary Care Physic pierre [facility]counter [facility] Date(s): 05/28/23 - 06/27/23 [facility] [address] [place] [address] Attending Physician: AdmMarie pizano Admitting Physician: AdmtrMarie Referring Physician: Admtr, Ar8 Allergies, Adverse Reactions, Alerts No Known Allergies Immunizations Given and Recorded Vaccine Date Status Refusal Reason tetanus/diphtheria/pertussis, acel(Tdap) 03/28/23 Given pneumococcal 23-valent vaccine 03/28/23 Given pneumococcal 23-valent vaccine 1 05/28/09 Given SARS-CoV-2 mRNA (gyblavc-wbot-hvneo) vax 10/18/21 Given influenza virus vaccine, inactivated [...] Fluvirin (oldterm) 05/23/11 Given Tet/diphth/pertussis, acel (oldterm) 9/14/11 Give n FluLaval (oldterm) 7 06/09/10 Given 1Result Comment: [employer] [id number] L287x 27feblo 2Result Comment: [facility]: 98307-362-61 3Admin Note: By Dr Granado 4Admin Note: Dr Granado 5Admin Note: [facility] 6Result Comment: Lot [id number] 7Admin Note: dr hall Medications acetaminophen-HYDROcodone 325 [...] tablet, 1 Refills, Maintenance, 04/20/22 13:02:00 EDT, [facility]/pharmacy #[id number], 1 tablet By Mouth [...] 1 Refills, Maintenance, 03/09/23 4:33:00 EDT, Tablet, [facility]/pharmacy #[id number], 175, cm, 12/28/22 15:56:00 EDT, Height, [...] each, 8 Refills, Maintenance, 01/12/23 12:47:00 EDT, [facility]/pharmacy #[id number], Partial fill upon patient request if th... Start Date: 01/12/23 Stop Date: 10/09/23 Status: Ordered Pen [place], 31 G x 5 mm BD Ultra [...] 05/10/23 16:18:00 EDT, [id number] 175, cm, 05/10/23 15:59:00 EDT, Height, 81.65, kg, 06/19/22 9:04:00 EDT, Dry Weight Start Date: 05/10/23 Status: Ordered Testopel = 300 mg, Subcutaneous Infusion, Every 3 months, 0 Refills, Maintenance, 03/26/15 23:08:01 Start Date: 03/26/15 Status: Ordered Tresiba FlexTouch 200 units/mL subcutaneous solution See Instructions, Take 22 units daily at lunch. E11.65, # 9 mL, 10 Refills, Maintenance, 12/31/22 11:09:00 EDT, [facility]/pharmacy #[id number], 175, cm, 12/28/22 15:56:00 EDT, Height, 81.65, kg, 06/19/22 9:04:00EDT, Dry Weight Start Date: 12/31/22 Status: Ordered Trulicity Pen 3 mg/0.5 mL subcutaneous solution 0.5 mL = 3 mg, Subcutaneous Injection, Every week, Take 3mg once weekly. E11.65., # 2 mL, 5 Refills, Maintenance, 10/18/22 16:22:00 EST, Solution, [facility], Partial fill upon patient [...] Care Team Personnel Name: Nuzhat Sainz Position: [facility] Outreach Member Role: Lifetime Consulting Physician Name: Maritza CABEZAS, Bailey Goss Position: [facility] Physician - Primary Care Member Role: PCP Address: Address: [address] [place] [id number] Name: Derik Gaines MD Position: [facility] Renal MD Member Role: Lifetime Consulting Physician Address: Address: [address] [place], [place] [address] [place], [place] [address] Name: Jazmin Florez RN Position: [facility] [place] Supv Member Role: Primary Care Nurse Name: Kiana Castelan [place] Position: [facility] Member Role: Lifetime Consulting Physician Name: Bayron Brandt DO Position: [facility] Renal MD Member Role: Lifetime Consulting Physician Address: Address: [address] [place], [place] [address]E [facility] [place] [address]- [place] Name: Amie Caldwell PharmD Position: [facility] Associate Professional Member Role: Lifetime Consulting Provider Address: Address: [address] [place] [address] [place] [address]- [place] Name: Eric Garcia RN Position: [facility] RN Member Role: Primary Care Nurse Name: Jaclyn Schulte RN Position: [facility] RN Member Role: Primary Care Nurse Name: Kavon Liu MD Position: Reference Physician Member Role: Lifetime Consulting Physician Address: Address: [address] [place] [address] [address] [facility] [place] [address]- Care Team Related Persons Name: DANA PERALES Address: home [address] [place] [address] Name: BO PERALES Address: home [address] [place] [address] Name: DANA BALTAZAR Address: home [address] [place] [address] Name: NALDO AVALOS Address: home [address] [place] [address] Name: NALDO BARNARD Address: home [address] [place] [address]
--- OUTSIDE RECORDS SUMMARY | 2024-06-17 06:01 | XMS_ITS | Continuity of Care Document ---
Author Organization [facility] ter Address [address] [place] [id number]- Care Team Providers Care Chief Operator Name Role Phone Maritza CABEZAS, Bailey Goss Primary Care Physic pierre Encounter [facility] Date(s): 12/27/22 - 12/27/[address] [address]- Discharge Disposition: A-D/C Home Attending Physician: Sharee Jordan MD Admitting Physician: Sharee Jordan MD Referring Physician: Not on Staff, Referring MD Allergies, Adverse Reactions, Alerts No Known Allergies Immunizations Given and Recorded Vaccine Date Status Refusal Reason SARS-CoV-2 mRNA ([id number]) vax 10/18/21 Given influenza virus vaccine, inactivated [...] 23-valent vaccine 7 05/28/09 Given 1Result Comment: [facility]: 47197-235-65 2Admin Note: By Dr Granado 3Admin Note: Dr Granado 4Admin Note: [facility] 5Result Comment: Lot [id number] ([id number] 6Admin Note: dr hall 7Result Comment: [employer] [id number] 27feblo Medications amLODIPine 2.5 mg oral tablet 2.5 mg, 1, tablet, By Mouth, Daily, # 90 tablet, Refills 3, Tot. Refills 3, Maintenance, 10/03/22 15:00:00 EST, Route to Pharmacy Electronically, [facility]/pharmacy #[id number], Partial fill upon patient requestif the prescription is for a schedule II opioid sandip... Start Date: 10/03/22 Status: Ordered Aricept 5 mg oral tablet 5 mg, 1, tablet, By Mouth, Daily at bedtime, For memory loss, # 90 tablet, Refills 3, Tot. Refills 3, Maintenance, 08/17/22 17:19:00 EST, Route to Pharmacy Electronically, [facility]/pharmacy #[id number], Partialfill upon patient request if the prescription is fo... Start Date: 08/17/22 Status: Ordered aspirin 81 mg oral delayed release tablet = 81 mg, By Mouth, Daily, # 30 tablet, 0 Refills, Maintenance, 11/10/21 15:20:00 EST, EC Tablet, [facility]/pharmacy #[id number], Partial fill upon patient request [...] tablet, 1 Refills, Maintenance, 04/20/22 13:02:00 EDT, [facility]/pharmacy #[id number], 1 tablet By Mouth [...] opioid drug. Start Date: 06/19/22 Status: Ordered doxycycline hyclate 100 mg oral enteric coated tablet 2 tablet = 200 mg, By Mouth, Daily, for 7 days, # 14 tablet, 0 Refills, Acute 01/03/23 12:32:00 EDT, 12/27/22 12:32:00 EDT, CR Tablet, [facility]/pharmacy #[id number], Partial fill upon patient request if the prescription is for a schedule II opioid drug., 175, cm... Start Date: 12/27/22 Stop Date: 01/03/23 Status: Ordered doxycycline monohydrate 100 mg oral capsule 1 capsule = 100 mg, By Mouth, 2 times a day, for 7 days, # 14 capsule, 0 Refills, Acute 01/03/23 17:05:00 EDT, 12/27/22 17:05:00 EDT, Capsule, [facility]/pharmacy #[id number], Partial fill upon patient request ifthe prescription is for a schedule II opioid drug.,... Start Date: 12/27/22 Stop Date: 01/03/23 Status: Ordered Freestyle Lite Lancets See Instructions, [...] # 200 each, Tot. Refills 5, Maintenance, use as directed for Type 2 Diabetes Mellitus, 12/27/22 12:30:00 EDT, Supply, 175, cm, 10/03/22 14:39:00 EST, Height, 81.65, kg, 06/19/22 9:04:00 EDT, Dry Weight Start Date: 12/27/22 Stop Date: 01/26/23 Status: Ordered Lisinopril = 20 mg, By [...] each, 8 Refills, Maintenance, 04/17/22 12:47:00 EDT, [facility]/pharmacy #[id number], Partial fill upon patient request if the prescription is for... Start Date: 04/17/22 Stop Date: 01/12/23 Status: Ordered Pen [place], 31 G x 5 mm BD Ultra [...] Replace Required Details, Route to Pharmacy Electronically, [facility]/pharmacy #[id number], 175, cm, 10/03/22 14:39:00 EST... Start Date: 10/29/22 Status: Ordered Testopel = 300 mg, Subcutaneous Infusion, Every 3 months, 0 Refills, Maintenance, 03/26/15 23:08:01 Start Date: 03/26/15 Status: Ordered Tresiba FlexTouch 200 units/mL subcutaneous solution See Instructions, Take 22 units daily at lunch. E11.65, # 9 mL, 10 Refills, Maintenance, 05/28/22 13:10:00 EDT, [facility]/pharmacy #[id number], 175, cm, 02/06/22 16:03:00 EDT, Height, 78.5, kg, 10/10/21 0:43:00 EST, Dry Weight Start Date: 05/28/22 Status: Ordered Trulicity Pen 3 mg/0.5 mL subcutaneous solution 0.5 mL = 3 mg, Subcutaneous Injection, Every week, Take 3mg once weekly. 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 Dementia Confirmed Active 1mild 2snoring Results Radiology Reports * Exam Date Time Procedure Performing Provider Status 12/27/22 12:00 PM Chest 2 Views Frontal and Lat Corinne Alcazar; Auth (Verified) Notes: (Chest 2 Views Frontal and Lat) Reason For Exam: Shortness of Breath, Fever;Other: RESULT: Chest 2 Views Frontal and Lat Chest 2 Views Frontal and Lat Hx of Present Illness: pt with c o bodyaches , increase urination , episodes of feeling hot at times; Reason: Other:; Shortness of Breath, Fever; Clinical Question(s): Pneumonia COMPARISON: Multiple prior examinations with the most recent dated 03/28/2022. FINDINGS: LINES AND TUBES: None. LUNGS AND PLEURA: Clear lungs. Normal pulmonary vascularity. No pleural effusion. No pneumothorax. HEART, MEDIASTINUM AND IRIS: Heart is normal in size. Normal mediastinal and hilar contour. Status post median sternotomy. BONES AND SOFT TISSUES: No acute abnormality. IMPRESSION: No acute abnormality. WSN: [id number] Ordering Physician: Sharee Jordan Dictated By: Que Ambrocio MD, V Dictated Date/Time: 12/27/22 12:14 p Reviewed By: Que Ambrocio MD, V Signed By: Que Ambrocio MD, V Signed Date/Time: 12/27/22 12:14 pm Transcribed By: CSMery Transcribed Date/Time: 12/27/22 12:13 pm Vital Signs Most recent to oldest [Reference Range]: 1 2 3 Oxygen Saturation [94-100 %] 94 % (12/27/22 10:44 AM) 96 % (12/27/22 8:13 AM) 96 % (12/27/22 8:07 AM) Pulse Rate [55-90 bpm] 78 bpm (12/27/22 10:44 AM) 57 bpm (12/27/22 8:13 AM) 110 bpm *H* (12/27/22 8:07 AM) Blood Pressure [90-138/55-84 mm Hg] 165/91mm Hg *H* (12/27/22 10:44 AM) 166/83mm Hg *H* (12/27/22 8:13 AM) Respiratory Rate [16-30 br/min] 16 br/min (12/27/22 10:44 AM) 16 br/min (12/27/22 8:13 AM) Temperature [96.8-100.4 DegF] 98.5 DegF (12/27/22 8:13 AM) Mode of Delivery (Oxygen) Room air (12/27/22 8:07 AM) Social History Social History Type Response Smoking Status Former smoker, quit more than 30 days ago entered on: 12/29/18 Sex Note * [facility] , CIS S: TRANSCRIBE Que Ambrocio MD, V: VERIFY Event Display: Result: Authored Date: Chest 2 Views Frontal and Lat Hx of Present Illness: pt with c o bodyaches , increase urination , episodes of feeling hot at times; Reason: Other:; Shortness of Breath, Fever; Clinical Question(s): Pneumonia COMPARISON: Multiple prior examinations with the most recent dated 03/28/2022. FINDINGS: LINES AND TUBES: None. LUNGS AND PLEURA: Clear lungs. Normal pulmonary vascularity. No pleural effusion. No pneumothorax. HEART, MEDIASTINUM AND IRIS: Heart is normal in size. Normal mediastinal and hilar contour. Status post median sternotomy. BONES AND SOFT TISSUES: No acute abnormality. IMPRESSION: No acute abnormality. WSN: [id number] Ordering Physician: Sharee Jordan Dictated By: Que Ambrocio MD, V Dictated Date/Time: 12/27/22 12:14 p Reviewed By: Que Ambrocio MD, V Signed By: Que Ambrocio MD, V Signed Date/Time: 12/27/22 12:14 pm Transcribed By: ALEXUS Transcribed Date/Time: 12/27/22 12:13 pm Patient Care team information Care Team Personnel Name: Nuzhat Sainz Position: [facility] Outreach Member Role: Lifetime Consulting Physician Name: Maritza CABEZAS, Bailey Goss Position: [facility] Primary Care Physician Member Role: PCP Address: Address: [address] [place] [id number]- Name: Derik Gaines MD Position: [facility] Renal MD Member Role: Lifetime Consulting Physician Address: Address: [address] [place], [place] [address] [place] [address]- Name: Jazmin Florez RN Position: [facility] RN Supv Member Role: Primary Care Nurse Name: Kiana Castelan Position: [facility] Outreach Member Role: Lifetime Consulting Physician Name: Bayron Brandt DO Position: [facility] Renal MD Member Role: Lifetime Consulting Physician Address: Address: [address] [place], [place] [address] [place] [address]- Name: Amie Caldwell PharmD Position: [facility] Associate Professional Member Role: Lifetime Consulting Provider Address: Address: [address] [place] [address]- Name: Eric Garcia RN Position: [facility] RN Member Role: Primary Care Nurse Name: Jaclyn Schulte RN Position: [facility] RN Member Role: Primary Care Nurse Name: Kavon Liu MD Position: Reference Physician Member Role: Lifetime Consulting Physician Address: Address: [address] [place] [address] [address] [facility] [place] [address]- [place] Name: Sharee Jordan MD Position: [facility] ED Medicine MD Member Role: Admitting Physician Address: Address: [address] [facility] [place] [address]- [place] Name: Jumana Thurman RN Position: [facility] ED RN W/OE and Tasks Member Role: Patient Care Provider Care Team Related Persons Name: DANA PERALES Address: home [address] [place] [address] Name: BO PERALES Address: home [address] [address] Name: DANA BALTAZAR Address: home [address] [address] Name: NALDO AVALOS Address: home [address] [place] [address] Name: NALDO BARNARD Address: home [address] [place] [address]
--- OUTSIDE RECORDS SUMMARY | 2024-06-17 06:01 | XMS_ITS | Continuity of Care Document ---
Author Organization [facility] Sigifredo ayush Address [address] [place] [address]- Care Team Providers Care Chronometer Assembler And Adjuster Name Role Phone Maritza CABEZAS, Bailey Goss Primary Care Physic pierre [facility] Date[facility]): 10/24/21 - 11/23/21 [facility] [address] [place] [address] Allergies, Adverse Reactions, Alerts No Known Allergies Immunizations Given and Recorded Vaccine Date Status Refusal Reason SARS-CoV-2 mRNA ([id number]) vax 10/18/21 Given influenza virus vaccine, inactivated [...] vaccine 7 05/28/09 Given 1Result Comment: [facility]: 79333-969-55 2Admin Note: By Dr Granado 3Admin Note: Dr Granado 4Admin Note: [facility] 5Result Comment: Lot [id number] ([id number] 6Admin Note: dr hall 7Result Comment: [employer] [id number] 27feblo Medications abacavir 300 mg oral [...] Stop 11/05/22 10:20:00EST, 11/10/21 10:20:00 EST, Tablet, [facility]/pharmacy #[id number], 175, cm, 10/27/21 13:06:00 EST, Height, [...] 0 Refills, Maintenance, 11/10/21 15:20:00 EST, Tablet, [facility]/pharmacy #[id number], Partial fill upon patient request if the prescription is for a schedule II opioid drug., 175, cm, 10/27/21 13:06:00 EST, Height... Start Date: 11/10/21 Status: Ordered metoprolol 50 mg oral tablet 50 mg, 1, tablet, By Mouth, 2 times a day, # 60 tablet, Refills 0, Tot. Refills 0, Maintenance, 11/10/21 15:20:00 EST, Route to Pharmacy Electronically, [facility]/pharmacy #[id number], Partial fill upon patient request if the prescription is for a schedule II opi... Start Date: 11/10/21 Status: Ordered NovoLOG FlexPen 100 units/mL subcutaneous solution See Instructions, Subcutaneous Injection, 3 times daily before meals; 100-150 10 units; 151-200 12 units; 201-250 14 units; 251-300 16 units; 301-350 18 units; Over 350 20 units, # 3 each, 5 Refills,Maintenance, 10/19/21 12:47:00 EST, [facility]... Start Date: 10/19/21 Stop Date: 04/17/22 Status: Ordered Pen [place], 31 G x 5 mm BD Ultra [...] Replace Required Details, Route to Pharmacy Electronically, [facility]/pharmacy #[id number], 175, cm, 10/27/21 13:06:00 EST... Start [...]
--- OUTSIDE RECORDS SUMMARY | 2024-06-17 06:01 | XMS_ITS | Continuity of Care Document ---
Author Organization [facility] Address [address] [place] [address]- Care Team Providers Care Landscape Designer Name Role Phone Bailey Salas MD Primary Care Physic pierre Encounter [facility] Date(s): 05/12/24 - 05/19/24 [facility] [address] [place] [address]- [place] Encounter Diagnosis Bilateral cataracts(Discharge Diagnosis) - 05/12/24 Dementia(Discharge Diagnosis) - 05/12/24 Attending Physician: Bailey Salas MD Allergies, Adverse Reactions, Alerts No Known Allergies Immunizations Given and Recorded Vaccine Date Status Refusal Reason zoster vaccine, inactivated 04/19/23 Recorded tetanus/diphtheria/pertussis, acel(Tdap) 03/28/23 Given pneumococcal 23-valent vaccine 03/28/23 Given pneumococcal 23-valent vaccine 1 05/28/09 Given [id number] 12y+ bivalent booster vax 08/28/22 Recorded influenza [...] inactivated 6 05/28/09 Gi isidra SARS-CoV-2 mRNA ([id number]-mrgq-yqfls) vax 10/18/21 Given SARS-CoV-2 (COVID-19) mRNA BNT-162b2 vac 4/25/21 Recorded SARS-CoV-2 (COVID-19) mRNA BNT-162b2 vac 12/10/20 Recorded Influenza Virus Vaccine (oldterm) 06/13/19 Recorde d pneumococcal 13-valent vaccine 10/03/16 Given Fluvirin (oldterm) 05/23/11 Given Tet/diphth/pertussis, acel (oldterm) 05/23/11 Give n FluLaval (oldterm) 7 06/09/10 Given 1Result Comment: [employer] [id number] 27feblo 2Result Comment: [facility]: [id number] 3Admin Note: [address] Granado 4Admin Note: Dr Granado 5Admin Note: [facility] 6Result Comment: Lot [id number] ([id number]) [id number] 7Admin Note: dr hall Medications Alcohol Pads [...] 0 Refills, Maintenance, 10/03/23 1:25:00 EST, Tablet, [facility]/pharmacy #[id number], Partial fill upon patient request if the [...] Refills, Maintenance, 10/03/23 1:25:00 EST, CR Tablet, [facility]/pharmacy #[id number], Partial fill upon patient request if the prescription is fora schedule II opioid drug., 172, cm, 10/02/23 7:02:... Start Date: 10/03/23 Status: Ordered buPROPion 300 mg/24 hours (XL) oral tablet, extended release 1 tablet = 300 mg, By Mouth, Every 24 hours, New dose, # 90 tablet, 0 Refills, Maintenance, 04/13/24 16:10:00 EDT, [facility]/pharmacy #[id number], Partial fill upon patient request if the prescription is for a schedule II opioid drug., 175, cm, 04/13/24 15:28:00... Start Date: 04/13/24 Status: Ordered Cabenuva 600/900 intramuscular suspension, extended [...] 10/03/23 1:26:00 EST, Route to Pharmacy Electronically, [facility]/pharmacy #[id number], Partial fill upon patient request if the prescription is for a... Start Date: 10/03/23 Status: Ordered finasteride 5 mg oral tablet 1 tablet = 5 mg, By Mouth, Daily, blister pack, # 90 tablet, 0 Refills, Maintenance, 10/03/23 1:27:00 EST, Tablet, [facility]/pharmacy #[id number], Partial fill upon patient request [...] Refills, Maintenance, 03/03/24 12:25:00 EDT, REC Powder, [facility]/pharmacy #[id number], Partial fill upon patient request if the [...] Daily, blister pack, # 90 tablet, Refills 3, Tot. Refills 3, Maintenance, 04/13/24 16:23:00 EDT, [id number] fill upon patient request if the prescription is for a schedule... Start Date: 04/13/24 Status: Ordered metoprolol succinate 200 mg oral capsule, extended release 1 capsule = 200 mg, By Mouth, Daily, blister pack, # 90 capsule, 0 Refills, Maintenance, 10/03/23 1:28:00 EST, ER [facility]apsule[id number] Partial fill upon patient request if the prescription isfor a schedule II opioid drug., 172, cm, 10/02/23 7... Start Date: 10/03/23 Status: Ordered Myrbetriq 50 mg oral tablet, extended release 1 tablet = 50 mg, By Mouth, Daily, blister pack do not crush or chew, # 90 tablet, 0 Refills, Maintenance, 10/03/23 1:28:00 EST, ER Tablet[id number] Partial fill upon patient request if the prescription is for a schedule II opioid drug., 17... Start Date: 10/03/23 Status: Ordered ondansetron 4 mg oral tablet, disintegrating 1 tablet = 4 mg, By Mouth, Every 8 hours, PRN Nausea & Vomiting, # 9 tablet, 0 Refills, Maintenance, 01/30/24 22:44:00 EDT, Tablet, [facility]/pharmacy #[id number], Partial fill upon patient request if the prescription is for a schedule II opioid drug., 175, cm, 0... Start Date: 01/30/24 Stop Date: 02/02/24 Status: Ordered ondansetron 8 mg oral tablet, disintegrating 1 tablet = 8 mg, By Mouth, 3 times a day, PRN Nausea & Vomiting, # 9 tablet, 0 Refills, Maintenance, 01/14/24 20:00:00 EDT, DIS Tablet, [facility]/pharmacy #[id number], Partial fill upon patient request [...] Weight Start Date: 02/10/24 Status: Ordered Pen [place], 31 G x 5 mm BD Ultra Fine III See Instructions, # 200 each, Maintenance, administer insulin daily, 10/03/23 1:30:00 EST, Supply, 172, cm, 10/02/23 7:02:00 EST, Height, 76.9, kg, 09/30/23 11:05:00 EST, Dry Weight Start Date: 10/03/23 Status: Ordered rosuvastatin 40 mg oral tablet 1 tablet = 40 mg, By Mouth, Daily, blister pack, # 90 tablet, 3 Refills, Maintenance, 04/13/24 16:23:00 EDT, Tablet, [facility]acy [id number], Partial fill upon patient request if the prescription is for aschedule II opioid drug., 175, cm, 04/13/24 15:28:0... Start Date: 04/13/24 Status: Ordered tamsulosin 0.4 mg oral capsule 0.4 mg, 1, capsule, By Mouth, Daily, blister pack, # 90 capsule, Refills 0, Tot. Refills 0, Maintenance, 10/03/23 1:29:00 EST, Route to Pharmacy Electronically, [facility]/pharmacy #[id number], Partial fill upon patient request [...] Dates Health Status Cl inical Service Informant Bilateral cataracts Discharge Diagnosis 05/12/24 Dementia Discharge Diagnosis 05/12/24 Vital Signs Most recent to oldest [Reference Range]: 1 2 Height 175 cm (05/12/24 4:15 PM) 175 cm (05/12/24 4:08 PM) Weight 83.8 kg (05/12/24 4:08 PM) Oxygen Saturation [94-100 %] 96 % (05/12/24 4:08 PM) Pulse Rate [55-90 bpm] 99 bpm *H* (05/12/24 4:08 PM) Body Mass Index [18.5-24.99 kg/m2] 27.36 kg/m2 *H* (05/12/24 4:08 PM) Blood Pressure [90-138/55-84 mm Hg] 136/ 84mm Hg (05/12/24 4:15 PM) 155/89mm Hg *H* (05/12/24 4:08 PM) Mode of Delivery (Oxygen) Room air (05/12/24 4:08 PM) Blood pressure sites Arm, right (05/12/24 4:15 PM) Arm, right (05/12/24 4:08 PM) Weight Obtained Via Standing scale (05/12/24 4:08 PM) Social History Social History Type Response Smoking Status Former smoker, quit more than 30 days ago entered on: 12/29/18 Sex Note * Paul Cabrera: PERFORM Event Display: Patient Education/Instruction Authored Date: [id number] Ambulatory Adult Visit Summary [address] [address] Name: MILAGROS PERALES : 1950?? Visit: 05/12/2024 15:51?? Ambulatory Visit Instructions ?? Your Care Team Primary Care Provider Bailey Salas MD? This Visit Provider Bailey Ingram MD Your Diagnosis Bilateral cataracts Dementia Vitals Signs Pulse Rate:??99 bpm??High Height: 175 cm Systolic Blood Pressure: 136 mm Hg Weight: 83.8 kg Diastolic Blood Pressure: 84 mm Hg Body Mass Index:??27.36 kg/m2??High Oxygen Saturation: 96 % Body surface area: 2.02 What to do next Scheduled Follow-Up Appointments Saturday 3:00 PM EST ?? With: Bailey Salas MD Where: [facility] [address] [place] [address]- Status: Pending Saturday 3:00 PM EST ?? Where: [facility] Status: Pending Follow-Up Appointments Follow Up with??Bailey Salas MD When:??11/09/2024 01:20 PM EST Where: [address] [place] [address]- Future Orders APOE Alzheimer's Risk - Once, *Est. 10/18/23, Future Order?? C. difficile Rapid Toxin Assay - Routine, Once, 02/10/24 16:36:00 EDT, [facility], Stool?? Medications The list below reflects the information in our records and provided by you today along with any changes made during this visit. Please continue your medications until treatment is completed or stopped by your provider. If this is different from the information you have or there are other questions,please contact the prescribing provider. What How Much When Instructions Unchanged Amlodipine (amLODIPine 5 mg oral tablet) 1 tab(s) Oral Daily blister pack ?? Unchanged Aspirin (aspirin 81 mg oral delayed release tablet) 1 tab(s) Oral Daily blister pack ?? Unchanged BuPROpion (buPROPion 300 mg/ 24 hours (XL) oral tablet, extended release) 1 tab(s) Oral Every 24 hours New dose ?? Unchanged cabotegravir-rilpivirine (Cabenuva 600/ 900 intramuscular suspension, extended release) See instructions Unchanged Donepezil (donepezil 10 mg oral tablet) 1 tab(s) Oral Daily at Bedtime blister pack ?? Unchanged dulaglutide (Trulicity Pen 0.75 mg/ 0.5 mL subcutaneous solution) 0.5 Milliliter Subcutaneous Injection Every week rotate injection sites ?? Unchanged Durable Medical Equipment (Alcohol Pads) See instructions check glucose 3 times a day before meal and at bedtime ?? Unchanged Durable Medical Equipment (Apnea Rx) See instructions Use when sleeping to treat sleep apnea G47.33 ?? Unchanged Durable Medical Equipment (DIabetes mellitus) See instructions Accucheck Glucometer : Check blood sugar 3 times before meals and at bedtime ?? Unchanged Durable Medical Equipment (FreeStyle Bri 2 Monitor) See instructions use as directed for type 2 diabetes ?? Unchanged Durable Medical Equipment (FreeStyle Bri 2 Sensors) See instructions use as directed for type 2 diabetes ?? Unchanged Durable Medical Equipment (Lancets) See instructions check three times a day before meal and at bedtime ?? Unchanged Durable Medical Equipment (Pen [place], 31 G x 5 mm BD Ultra Fine III) See instructions administer insulin daily ?? Unchanged Durable Medical Equipment (Test Strips) See instructions check glucose 3 times a day before meal and bedtime ?? Unchanged Durable Medical Equipment (Test Strips) See instructions Accucheck: Accucheck Glucometer : Check blood sugar 3 times before meals and at bedtime ?? Unchanged Finasteride (finasteride 5 mg oral tablet) 1 tab(s) Oral Daily blister pack ?? Unchanged Glucose (glucose 4 gm oral tablet, chewable) 4 tab(s) Chew Once as needed for as needed for low blood sugar take whenever the glucose is below 70 mg/ dL, may repeat in 15 to 20 minutes if blood sugar still < 70 mg/ dL ?? Unchanged insulin degludec (Tresiba FlexTouch 200 units/ mL subcutaneous solution) 35 unit(s) Subcutaneous Injection Daily rotate injection sites ?? Unchanged Lisinopril (lisinopril 20 mg oral tablet) 1 tab(s) Oral Daily blister pack ?? Unchanged Metoprolol (metoprolol succinate 200 mg oral capsule, extended release) 1 capsule Oral Daily blister pack ?? Unchanged mirabegron (Myrbetriq 50 mg oral tablet, extended release) 1 tab(s) Oral Daily blister pack do not crush or chew ?? Unchanged Ondansetron (ondansetron 4 mg oral tablet, disintegrating) 1 tab(s) Oral Every 8 hours as needed for Nausea & Vomiting Duration: 3 Days Unchanged Ondansetron (ondansetron 8 mg oral tablet, disintegrating) 1 tab(s) Oral 3 times a day as needed for Nausea & Vomiting Unchanged Pantoprazole (pantoprazole 20 mg oral delayed release tablet) 20 Milligram Oral Daily blister pack ?? Unchanged PEG Electrolyte Solution (Golytely - oral powder for reconstitution) 240 Milliliter Oral Every 10 minutes Unchanged Rosuvastatin (rosuvastatin 40 mg oral tablet) 1 tab(s) Oral Daily blister pack ?? Unchanged Tamsulosin (tamsulosin 0.4 mg oral capsule) 1 capsule Oral Daily blister pack ?? Medications and Immunizations Administered Medications Given During Visit No medications given during this visit.?? Allergies (NKA means No Known Allergies) NKA Common Emergency Awareness Tips IS IT A STROKE? Act FAST and Check for these signs: FACE Does the face look uneven? ARM Does one arm drift down? SPEECH Does their speech sound strange? TIME Call at any sign of stroke ?? Heart Attack Signs Chest discomfort: Most heart attacks involve discomfort in the center of the chest and lasts more than a few minutes, or goes away and comes back. It can feel like uncomfortable pressure, squeezing, fullness or pain. Discomfort in upper body: Symptoms can include pain or discomfort in one or both arms, back, neck, jaw or stomach. Shortness of breath: With or without discomfort. Other signs: Breaking out in a cold sweat, nausea, or lightheaded. Remember, MINUTES DO MATTER. If you experience any of these heart attack warning signs, call to get immediate medical attention! ?? Smoking can increase your chances of developing chronic health problems and can cause harmful effects to other family members in your house. If you smoke, you are strongly encouraged to quit. Please call [facility] [employer] Link at [phone] or [phone] Code ([phone]) or log in to [email or web address] for referrals to smoking cessation programs. ?? The National Suicide Prevention Hotline is available 01/04 if you or someone you know needs to find a reason to keep living. By calling 7-319-711-[employer] (6969) you'll be connected to a skilled, trained counselor at a crisis center in your area. [facility] [employer] Portal You can view and manage your care through the patient portal or by using a health care ezra of your choosing. [employer] is a website that allows you to securely view your medical information including your hospital discharge summary, office visit summaries, medications and follow-up visits. You can also request appointments, renew medications, and request access to your medical information using a health care ezra of your choosing, or just ask a question. You can enroll at [email or web address] or register during your next office visit. [facility], in keeping with [facility] guidance, no longer requires face masks for staff, patientsor visitors in most situations. Similiar to time spent indoors at other locations, there is the chance that you were exposed to repiratory viruses during your time with us (such as flu or COVID-19). If you develop symptoms concerning for a viral respiratory infection, please seek testing (and treatment if indicated) from your medical provider or home test kit. ?? Disclaimer: The information provided is of a general nature and is intended to be used in conjunction with the recommendations and advice of your health care practitioner. Every effort has been made to ensure that the information provided is accurate and complete at the time it is provided to you however, as your needs change, or, as new information becomes available, different or additional instructions may be required. ?? If you have questions, please consult with your primary care provider or pharmacist, as appropriate. This information is not intended to serve as substitution for assessment and evaluation by a qualified health care provider. If you do not have a primary care provider, you may find a [facility] provider by calling [facility] Link at [phone]. Patient Care team information Care Team Personnel Name: Nuzhat Sainz Position: [facility] Outreach Member Role: Lifetime Consulting Physician Name: Janel Mead RN Position: [facility] RN Member Role: Primary Care Nurse Name: Maritza CABEZAS, Bailey Goss Position: [facility] Physician - Primary Care Member Role: PCP Address: Address: [address] [place] [id number]- Name: Derik Gaines MD Position: [facility] Renal Member Role: Lifetime Consulting Physician Address: Address: [address] [place], [place] [address] [place] [address]- Name: Kiana Castelan [place] Position: [facility] HAMILTON CARLOS Member Role: Lifetime Consulting Physician Name: Bayron Brandt DO Position: [facility] Renal Member Role: Lifetime Consulting Physician Address: Address: [address] [place], [place] [address]E [facility] [place] [address]- Name: Eric Garcia RN Position: [facility] RN Member Role: Primary Care Nurse Name: Jaclyn Schulte RN Position: [facility] RN Member Role: Primary Care Nurse Name: Kavon Liu MD Position: Reference Physician Member Role: Lifetime Consulting Physician Address: Address: [address] [place] [address] [address] [facility] [place] [address]- Care Team Related Persons Name: BO PERALES Address: home [address] [place] [address] Name: DANA BALTAZAR Address: home [address] [place] [address] Name: NALDO AVALOS Address: [address] [place] [address] Name: NALDO BARNARD Address: home [address] [place] [address]
--- OUTSIDE RECORDS SUMMARY | 2024-06-17 06:01 | XMS_ITS | Continuity of Care Document ---
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 Name Role Phone Maritza CABEZAS, Bailey Goss Primary Care Physic pierre Encounter [facility] Date(s): 10/23/23 - 11/22/23 [facility] [address] [place] [address]- Allergies, Adverse Reactions, Alerts No Known Allergies Immunizations Given and Recorded Vaccine Date Status Refusal Reason zoster vaccine, inactivated 04/19/23 Recorded tetanus/diphtheria/pertussis, acel(Tdap) 03/28/23 Given pneumococcal 23-valent vaccine 03/28/23 Given pneumococcal 23-valent vaccine 1 05/28/09 Given [id number] 12y+ bivalent booster vax 08/28/22 Recorded influenza [...] inactivated 6 05/28/09 Gi isidra SARS-CoV-2 mRNA (ekunigs-kmeh-okinq) vax 10/18/21 Given SARS-CoV-2 (COVID-19) mRNA BNT-162b2 vac 01/01/21 Recorded SARS-CoV-2 (COVID-19) mRNA BNT-162b2 vac 12/10/20 Recorded Influenza Virus Vaccine (oldterm) 06/13/19 Recorde d pneumococcal 13-valent vaccine 10/03/16 Given Fluvirin (oldterm) 05/23/11 Given Tet/diphth/pertussis, acel (oldterm) 05/23/11 Give n FluLaval (oldterm) 7 06/09/10 Given 1Result Comment: [employer] [id number] [id number] 2Result Comment: [facility]: [id number] 3Admin Note: By Dr Granado 4Admin Note: Dr Granado 5Admin Note: [facility] 6Result Comment: Lot [id number] 7Admin Note: dr hall Medications Alcohol Pads [...] in AM, blister pack, # 90 tablet, 0 Refills, Maintenance, 10/03/23 1:26:00 EST, XL Tablet, [facility]/pharmacy #[id number], Partial fill upon patient request if the prescriptionis for a schedule II opioid drug., 1 tablet By Mout... Start Date: 10/03/23 Status: Ordered Cabenuva 600/900 intramuscular suspension, extended [...] 10/03/23 1:26:00 EST, Route to Pharmacy Electronically, [facility]/pharmacy #[id number], Partial fill upon patient request if the prescription is for a... Start Date: 10/03/23 Status: Ordered finasteride 5 mg oral tablet 1 tablet = 5 mg, By Mouth, Daily, blister pack, # 90 tablet, 0 Refills, Maintenance, 10/03/23 1:27:00 EST, Tablet, [id number], Partial fill upon [...] 10/03/23 1:27:00 EST, Route to Pharmacy Electronically, [facility]/pharmacy #[id number], Partial fill upon patient request if the prescription is for a schedule I... Start Date: 10/03/23 Status: Ordered metoprolol succinate 200 mg oral capsule, extended release 1 capsule = 200 mg, By Mouth, Daily, blister pack, # 90 capsule, 0 Refills, Maintenance, 10/03/23 1:28:00 EST, ER Capsule, [facility]/pharmacy #[id number], Partial fill upon patient request if the prescription isfor a schedule II opioid drug., 172, cm, 10/02/23 7... Start Date: 10/03/23 Status: Ordered Myrbetriq 50 mg oral tablet, extended release 1 tablet = 50 mg, By Mouth, Daily, blister pack do not crush or chew, # 90 tablet, 0 Refills, Maintenance, 10/03/23 1:28:00 EST, ER Tablet, [facility]/pharmacy #[id number], Partial fill upon patient request if the prescription is for a schedule II opioid drug., 17... Start Date: 10/03/23 Status: Ordered pantoprazole 20 mg oral delayed release tablet = 20 mg, By Mouth, Daily, blister pack, # 90 tablet, 0 Refills, Maintenance, 10/03/23 1:28:00 EST, EC Tablet, 172, cm, 10/02/23 7:02:00 EST, Height, 76.9, kg, 09/30/23 11:05:00 EST, Dry Weight Start Date: 10/03/23 Stop Date: 11/02/23 Status: Ordered Pen [place], 31 G x 5 mm BD Ultra [...] 0 Refills, Maintenance, 10/03/23 1:28:00 EST, Tablet, [facility]/pharmacy #[id number], Partial fill upon patient request if the prescription is for a schedule II opioid drug., 172, cm, 10/02/23 7:02:00... Start Date: 10/03/23 Status: Ordered tamsulosin 0.4 mg oral capsule 0.4 mg, 1, capsule, By Mouth, Daily, blister pack, # 90 capsule, Refills 0, Tot. Refills 0, Maintenance, 10/03/23 1:29:00 EST, Route to Pharmacy Electronically, [facility]/pharmacy #[id number], Partial fill upon patient [...] Tresiba FlexTouch 200 units/mL subcutaneous solution = 25 units, Subcutaneous Injection, Daily, rotate injection sites, # 9 mL, 0 Refills, Maintenance, 10/03/23 1:27:00 EST, Solution, [id number], Partial fill upon patient request if the prescription is for a schedule II opioid drug., 172, cm, 01... Start Date: 10/03/23 Status: Ordered Trulicity Pen 0.75 mg/0.5 mL subcutaneous solution INJECT 0.5 ML UNDER THE SKIN PER WEEK DX CODE E11.21 Start Date: 11/11/23 Status: Ordered Problem List Condition Confirmation Course [...] Care Team Personnel Name: Nuzhat Sainz Position: [facility] Outreach Member Role: Lifetime Consulting Physician Name: Janel Mead RN Position: [facility] RN Member Role: Primary Care Nurse Name: Maritza CABEZAS, Bailey Goss Position: [facility] Physician - Primary Care Member Role: PCP Address: Address: [address] [place] [address]- Name: Derik Gaines MD Position: [facility] Renal MD Member Role: Lifetime Consulting Physician Address: Address: [address] [place], [place] [address]E [facility] [place] [place] [address]- Name: Kiana Castelan [place] Position: [facility] [place] Member Role: Lifetime Consulting Physician Name: Bayron Brandt DO Position: [facility] Renal MD Member Role: Lifetime Consulting Physician Address: Address: [address] [place], [place] [address] [place] [address]- Name: Amie Caldwell PharmD Position: [facility] Associate Professional Member Role: Lifetime Consulting Provider Address: Address: [address] [facility] [place] [address]- Name: Eric Garcia RN Position: [facility] RN Member Role: Primary Care Nurse Name: Jaclyn Schulte RN Position: [facility] RN Member Role: Primary Care Nurse Name: Kavon Liu MD Position: Reference Physician Member Role: Lifetime Consulting Physician Address: Address: [address] [address] [address] [facility] [place] [address]- Care Team Related Persons Name: DANA PERALES Address: [address] [address] Name: BO PERALES Address: home [address] [place] [address] Name: DANA BALTAZAR Address: home [address] [place] [address] Name: NALDO AVALOS Address: home [address] [place] [address] Name: NALDO BARNARD Address: [address] [place] [address]
--- OUTSIDE RECORDS SUMMARY | 2024-06-17 06:01 | XMS_ITS | Continuity of Care Document ---
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 Name Role Phone Maritza CABEZAS, Bailey Goss Primary Care Physic pierre [facility] Date[facility]s): 10/02/23 - 11/01/23 [facility] [address] [place] [address]- Allergies, Adverse Reactions, Alerts No Known Allergies Immunizations Given and Recorded Vaccine Date Status Refusal Reason tetanus/diphtheria/pertussis, acel(Tdap) 03/28/23 Given pneumococcal 23-valent vaccine 03/28/23 Given pneumococcal 23-valent vaccine 1 05/28/09 Given SARS-CoV-2 mRNA ([id number]) vax 10/18/21 Given influenza virus vaccine, inactivated [...] FluLaval (oldterm) 7 06/09/10 Given 1Result Comment: [employer] [id number] 27feblo 2Result Comment: [facility]: [id number] 3Admin Note: By Dr Granado 4Admin Note: Dr Granado 5Admin Note: [facility] 6Result Comment: Lot [id number] ([id number]) [id number] 7Admin Note: dr hall Medications Alcohol Pads [...] Refills, Maintenance, 10/03/23 1:26:00 EST, XL Tablet, [facility]/pharmacy #[id number], Partial fill upon patient [...] 10/03/23 1:26:00 EST, Route to Pharmacy Electronically, [facility]/pharmacy #[id number], Partial fill upon patient request if the prescription is for a... Start Date: 10/03/23 Status: Ordered finasteride 5 mg oral tablet 1 tablet = 5 mg, By Mouth, Daily, blister pack, # 90 tablet, 0 Refills, Maintenance, 10/03/23 1:27:00 EST, Tablet, [facility]/pharmacy #[id number], Partial fill upon patient [...] 10/03/23 1:27:00 EST, Route to Pharmacy Electronically, [facility]/pharmacy #[id number], Partial fill upon patient request if the prescription is for a schedule I... Start Date: 10/03/23 Status: Ordered metoprolol succinate 200 mg oral capsule, extended release 1 capsule = 200 mg, By Mouth, Daily, blister pack, # 90 capsule, 0 Refills, Maintenance, 10/03/23 1:28:00 EST, ER Capsule, [facility]/pharmacy #[id number], Partial fill upon patient request if the prescription isfor a schedule II opioid drug., 172, cm, 10/02/23 7... Start Date: 10/03/23 Status: Ordered Myrbetriq 50 mg oral tablet, extended release 1 tablet = 50 mg, By Mouth, Daily, blister pack do not crush or chew, # 90 tablet, 0 Refills, Maintenance, 10/03/23 1:28:00 EST, ER Tablet, [facility]/pharmacy #[id number], Partial fill upon patient [...] 10/03/23 Stop Date: 11/02/23 Status: Ordered Pen [place], 31 G x 5 mm BD Ultra [...] 0 Refills, Maintenance, 10/03/23 1:28:00 EST, Tablet, [facility]/pharmacy #[id number], Partial fill upon patient request if the prescription is for a schedule II opioid drug., 172, cm, 10/02/23 7:02:00... Start Date: 10/03/23 Status: Ordered tamsulosin 0.4 mg oral capsule 0.4 mg, 1, capsule, By Mouth, Daily, blister pack, # 90 capsule, Refills 0, Tot. Refills 0, Maintenance, 10/03/23 1:29:00 EST, Route to Pharmacy Electronically, [facility]/pharmacy #[id number], Partial fill upon patient [...] a schedule II opioid drug., 172, cm, ... Start Date: 10/03/23 Status: Ordered Problem List Condition Confirmation Course [...] Care Team Personnel Name: Nuzhat Sainz Position: [facility] Outreach Member Role: Lifetime Consulting Physician Name: Janel Mead RN Position: [facility] RN Member Role: Primary Care Nurse Name: Maritza CABEZAS, Bailey Goss Position: [facility] Physician - Primary Care Member Role: PCP Address: Address: [address] [place] [address]- [place] Name: Derik Gaines MD Position: [facility] Renal MD Member Role: Lifetime Consulting Physician Address: Address: [address] [place], [place] [address] [place] [address]- [place] Name: Kiana Castelan [place] Position: [facility] [place] Member Role: Lifetime Consulting Physician Name: Bayron Brandt DO Position: [facility] Renal MD Member Role: Lifetime Consulting Physician Address: Address: [address] [place] [address] [address] [facility] [place] [address]- [place] Name: Amie Caldwell PharmD Position: [facility] Associate Professional Member Role: Lifetime Consulting Provider Address: Address: [address] [facility] [place] [address]- [place] Name: Eric Garcia RN Position: [facility] RN Member Role: Primary Care Nurse Name: Jaclyn Schulte RN Position: [facility] RN Member Role: Primary Care Nurse Name: Kavon Liu MD Position: Reference Physician Member Role: Lifetime Consulting Physician Address: Address: [address] [place] [address] [address] [facility] [place] [address]- Care Team Related Persons Name: DANA PERALES Address: home [address] [place] [address] Name: BO PERALES Address: home [address] [place] [address] Name: DANA BALTAZAR Address: home [address] [place] [address] Name: NALDO AVALOS Address: home [address] [place] [address] Name: NALDO BARNARD Address: home [address] [place] [address]
--- OUTSIDE RECORDS SUMMARY | 2024-06-17 06:01 | XMS_ITS | Continuity of Care Document ---
Author Organization [facility] Address [address] [place] [address]- Care Team Providers Care Wood Model Builder Name Role Phone Geoff Glover DO Primary Care Physician Encounter [facility] Date(s): 10/23/19 - 11/02/19 [facility] [address] [place] [address]- [facility] Attending Physician: AdmMarie pizano Admitting Physician: Admtr, Marie Referring Physician: Admtr, Ar8 Allergies, Adverse Reactions, Alerts Substance Reaction Severity [...] 3Admin Note: [facility] 4Result Comment: Lot [id number] (E) [id number] 5Admin Note: dr hall 6Result Comment: [employer] [id number] [id number] 27feblo Medications amlodipine 10 mg oral tablet 10 mg, 1, tablet, By Mouth, Daily, pharmacy wants 90 days, # 90 tablet, Refills 1, Tot. Refills 1, Maintenance, 07/10/16 21:05:57, Route to Pharmacy Electronically, [id number], [facility]/pharmacy #[id number] Start Date: 07/10/16 Stop Date: 01/06/17 Status: Ordered aspirin 81 mg oral enteric coated tablet 1 tablet = 81 mg, By Mouth, Daily, # 30 tablet, 3 Refills, Maintenance Start Date: 05/27/09 Status: Ordered BD UF RADHA PEN NEEDLE [id number] See Instructions, # 120 Unknown, Refills 5 Tot. Refills 5, USE DAILY, [facility]/pharmacy #[id number] Start Date: 07/10/19 Status: Ordered buPROPion 150 mg/24 hours (XL) oral tablet, extended release 1 tablet = 150 mg, By Mouth, Every 24 hours, # 90 tablet, 1 Refills, Maintenance, 08/26/19 9:56:00 EST, ER Tablet, [facility]/pharmacy #[id number], 1 tablet By Mouth [...] CHECK BLOOD SUGARS 3 TIMES A DAY, [facility]/pharmacy #[id number] Start Date: 03/10/19 Status: Ordered [...] Maintenance, 07/07/18 11:08:24 EDT,Route to Pharmacy Electronically, [id number], [facility]/pharmacy #[id number] Start Date: 07/07/18 Status: Ordered metFORMIN 500 mg oral tablet, extended release 2 tablet = 1,000 mg, By Mouth, Daily, # 120 tablet, 11 Refills, Maintenance, 10/21/18 17:17:09 EST,[facility]/pharmacy #[id number], D/C RX on file 1000mg [...] TAKE 1 CAPSULE BY MOUTH EVERY DAY, [facility]/pharmacy #[id number] Start Date: 06/01/19 Status: Ordered [...]
--- OUTSIDE RECORDS SUMMARY | 2024-06-17 06:01 | XMS_ITS | Continuity of Care Document ---
Author Organization [facility] Address [address] [place] [address]- Care Team Providers Care Family Practice Nurse Practitioner Name Role Phone Maritza CABEZAS, Bailey Goss Primary Care Physic pierre [facility] Date[facility]s): 10/18/22 - 11/17/22 [facility] [address] [place] [id number] Allergies, Adverse Reactions, Alerts No Known Allergies Immunizations Given and Recorded Vaccine Date Status Refusal Reason SARS-CoV-2 mRNA (ajzcpnb-mwtb-vspoc) vax 10/18/21 Given influenza virus vaccine, inactivated [...] 23-valent vaccine 7 05/28/09 Given 1Result Comment: [facility]: [id number] 2Admin Note: By Dr Granado 3Admin Note: Dr Granado 4Admin Note: [facility] 5Result Comment: Lot [id number] (E) [id number] 6Admin Note: dr hall 7Result Comment: [employer] [id number] L287x 27feblo Medications amLODIPine 2.5 mg oral tablet 2.5 mg, 1, tablet, By Mouth, Daily, # 90 tablet, Refills 3, Tot. Refills 3, Maintenance, 10/03/22 15:00:00 EST, Route to Pharmacy Electronically, [facility]/pharmacy #[id number], Partial fill upon patient requestif the prescription is for a schedule II opioid sandip... Start Date: 10/03/22 Status: Ordered Aricept 5 mg oral tablet 5 mg, 1, tablet, By Mouth, Daily at bedtime, For memory loss, # 90 tablet, Refills 3, Tot. Refills 3, Maintenance, 08/17/22 17:19:00 EST, Route to Pharmacy Electronically, [facility]/pharmacy #[id number], Partialfill upon patient request if the [...] opioid drug. Start Date: 06/19/22 Status: Ordered Freestyle Lite Lancets See Instructions, [...] Ordered Freestyle Lite Test Strips See Instructions, for 30 days, # 300 each, Refills 1, Tot. Refills 1, Hard Stop 12/17/22 16:24:00 EDT, 90 day supply Use to check blood sugars 3 times daily. E11.65, 10/18/22 16:24:00 EST, Compound, 175, cm, 10/03/22 14:39:00 EST, Height, 81.65, kg... Start Date: 10/18/22 Stop Date: 12/17/22 Status: Ordered Lisinopril = 20 mg, By [...] each, 8 Refills, Maintenance, 04/17/22 12:47:00 EDT, [facility]/pharmacy #[id number], Partial fill upon patient request if the prescription is for... Start Date: 04/17/22 Stop Date: 01/12/23 Status: Ordered Pen [place], 31 G x 5 mm BD Ultra [...] Replace Required Details, Route to Pharmacy Electronically, [facility]/pharmacy #[id number], 175, cm, 10/03/22 14:39:00 EST... Start [...] 5 Refills, Maintenance, 10/18/22 16:22:00 EST, Solution, [facility], Partial fill upon patient [...] Care Team Personnel Name: Nuzhat Sainz Position: [facility] Outreach Member Role: Lifetime Consulting Physician Name: Maritza CABEZAS, Bailey Goss Position: [facility] Primary Care Physician Member Role: PCP Address: Address: [address] [place] [address]- Name: Derik Gaines MD Position: [facility] Renal MD Member Role: Lifetime Consulting Physician Address: Address: [address] [place] [address] [address] [facility] [place] [place] [address]- Name: Jazmin Florez RN Position: [facility] RN Supv Member Role: Primary Care Nurse Name: Kiana Castelan Position: [facility] Outreach Member Role: Lifetime Consulting Physician Name: Bayron Brandt DO Position: [facility] Renal MD Member Role: Lifetime Consulting Physician Address: Address: [address] [facility] [address] [facility] [place] [address]- [place] Name: Amie Caldwell PharmD Position: [facility] Associate Professional Member Role: Lifetime Consulting Provider Address: Address: [address] [place] [address]- [place] Name: Eric Garcia RN Position: [facility] RN Member Role: Primary Care Nurse Name: Jaclyn Schlute RN Position: [facility] RN Member Role: Primary Care Nurse Name: Kavon Liu MD Position: Reference Physician Member Role: Lifetime Consulting Physician Address: Address: [address] [place] [address] [address] [facility] [place] [address]- Care Team Related Persons Name: DANA PERALES Address: home [address] [address] Name: BO PERALES Address: home [address] [place] [address] Name: DANA BALTAZAR Address: home [address] [place] [address] Name: NALDO AVALOS Address: home [address] [place] [address] Name: NALDO BARNARD Address: home [address] [place] [address]
--- OUTSIDE RECORDS SUMMARY | 2024-06-17 06:01 | XMS_ITS | Continuity of Care Document ---
Author Organization [facility] Address [address] [place] [address]- Care Team Providers Care Slider Assembler Name Role Phone Maritza CABEZAS, Bailey Goss Primary Care Physic pierre [facility]counter [facility] Date[facility]s): 08/25/20 - 09/24/20 [facility] [address] [place] [id number] Attending Physician: AdmMarie pizano Admitting Physician: AdmMarie pizano Referring Physician: Admtr, Marie Allergies, Adverse Reactions, Alerts Substance Reaction Severity [...] 3Admin Note: [facility] 4Result Comment: Lot [id number] (E) [id number] 5Admin Note: dr hall 6Result Comment: [employer] [id number] L287x 27feblo Medications amlodipine 10 mg oral tablet 10 mg, 1, tablet, By Mouth, Daily, pharmacy wants 90 days, # 90 tablet, Refills 1, Tot. Refills 1, Maintenance, 07/10/16 21:05:57, Route to Pharmacy Electronically, [id number], [facility]/pharmacy #[id number] Start Date: 07/10/16 Stop Date: 01/06/17 Status: Ordered aspirin 81 mg oral enteric coated tablet 1 tablet = 81 mg, By Mouth, Daily, # 30 tablet, 3 Refills, Maintenance Start Date: 05/27/09 Status: Ordered BD UF RADHA PEN NEEDLE [id number] See Instructions, # 120 Unknown, Refills 5 Tot. Refills 5, USE DAILY, [facility]/pharmacy #[id number] Start Date: 07/10/19 Status: Ordered BD [...] Refills, Maintenance, 06/13/20 8:06:00 EDT, [id number], 90, TAKE 1 TABLET BY MOUTH EVERY 24 HOURS, 170, cm, 03/29/20 10:57:00 EDT, Height, 92, kg, 09/14/19 14:18:00 EST, Dry Weight Start Date: 06/13/20 Status: Ordered chlorthalidone 25 mg oral tablet 25 mg, 1, tablet, By Mouth, Daily, # 30 tablet, Refills 0, Maintenance, 10/15/19 14:30:00 EST Start Date: 10/15/19 Status: Ordered Crestor 40 mg oral tablet 1 tablet = 40 mg, By Mouth, Daily, # 90 tablet, 3 Refills, Maintenance, 08/30/20 8:19:00 EST, Tablet, [facility]/pharmacy #[id number], 170, cm, 03/29/20 10:57:00 EDT, Height, 92, kg, 09/14/19 14:18:00 EST, Dry Weight Start Date: 08/30/20 Stop Date: 08/25/21 Status: Ordered Egrifta = 2 mg, Subcutaneous [...] CHECK BLOOD SUGARS 3 TIMES A DAY, [facility]/pharmacy #0693 Start Date: 03/10/19 Status: Ordered Freestyle [...] Maintenance, 07/07/18 11:08:24 EDT,Route to Pharmacy Electronically, [id number], [facility]/pharmacy #0693 Start Date: 07/07/18 Status: Ordered metFORMIN 500 mg oral tablet, extended release 2 tablet = 1,000 mg, By Mouth, Daily, # 180 tablet, 1 Refills, Maintenance, 11/09/19 16:29:00 EST, [facility]/pharmacy #0693, D/C RX on file 1000mg not [...] Instructions Replace Required Details, Route to Pharmacy Electronically,[facility]/pharmacy #[id number], 170, cm, 03/29/20 10:57:00 EDT,... Start Date: 08/31/20 Status: Ordered tamsulosin 0.4 mg oral capsule See Instructions, # 90 capsule, TAKE 1 CAPSULE BY MOUTH EVERY DAY, [facility]/pharmacy #0693 Start Date: 04/06/19 Status: Ordered Testopel [...] mL, 5 Refills, Maintenance, 08/25/20 11:22:00 EST, [facility]/pharmacy #0693, 170, cm, 03/29/20 10:57:00 EDT, Height, 92, kg, 09/14/19 14:18:00 EST, Dry Weight Start Date: 08/25/20 Status: Ordered Triumeq oral tablet 1 tablet, By Mouth, Daily, # 90 tablet, 1 Refills, Maintenance, 08/30/20 11:56:00 EST, [id number], 90, TAKE 1 TABLET BY MOUTH EVERY DAY, 170, cm, 03/29/20 10:57:00 EDT, Height, 92, kg, 09/14/19 14:18:00 EST, Dry Weight Start Date: 08/30/20 Status: Ordered Trulicity Pen 1.5 mg/0.5 mL subcutaneous solution 0.5 mL = 1.5 mg, Subcutaneous Injection, Every week, Take 1.5mg once weekly. E11.65. 90-day supply,# 6.5 mL, 1 Refills, Maintenance, 08/01/20 11:31:00 EST, Solution, [id number], 170, cm, 03/29/20 10:57:00 EDT, Height, 92, kg, 09/14/19 14:18:0... Start Date: 08/01/20 Status: Ordered Problem List Condition Effective Dates [...]
--- OUTSIDE RECORDS SUMMARY | 2024-06-17 06:01 | XMS_ITS | Continuity of Care Document ---
Author Organization [facility] Address [address] [place] [address]- Care Team Providers Care Showroom Salesperson Name Role Phone Maritza CABEZAS, Bailey Goss Primary Care Physic pierre [facility]): 06/[facility]21 - 06/30/21 [facility] [address] [place] [address]- [place] Encounter Diagnosis Hiccups(Discharge Diagnosis) - 06/23/21 Memory change(Discharge Diagnosis) - 06/23/21 Attending Physician: Bailey Salas MD Allergies, Adverse [...] 3Admin Note: [facility] 4Result Comment: Lot [id number] (E) [id number] 5Admin Note: dr hall 6Result Comment: [employer] [id number] [id number] 27feblo Medications amlodipine 10 mg oral tablet 10 mg, 1, tablet, By Mouth, Daily, pharmacy wants 90 days, # 90 tablet, Refills 1, Tot. Refills 1, Maintenance, 07/10/16 21:05:57, Route to Pharmacy Electronically, [id number], [facility]/pharmacy #[id number] Start Date: 07/10/16 Stop Date: 01/06/17 Status: Ordered aspirin 81 mg oral enteric coated tablet 1 tablet = 81 mg, By Mouth, Daily, # 30 tablet, 3 Refills, Maintenance Start Date: 05/27/09 Status: Ordered BD UF RADHA PEN NEEDLE [id number] See Instructions, # 120 Unknown, Refills 5 [...] CHECK BLOOD SUGARS 3 TIMES A DAY, [facility]/pharmacy #0693 Start Date: 03/10/19 Status: Ordered Freestyle [...] Maintenance, 07/07/18 11:08:24 EDT,Route to Pharmacy Electronically, [id number], [facility]/pharmacy #0693 Start Date: 07/07/18 Status: Ordered metoclopramide 10 mg oral tablet 1 tablet = 10 mg, By Mouth, 4 times a day, # 28 tablet, 0 Refills, Maintenance, 06/17/21 16:38:00 EDT, Tablet, [facility]/pharmacy #0693, Partial fill upon patient request if the prescription is for a schedule II opioid drug., 170, cm, 04/20/21 16:19:00 EDT,... Start Date: 06/17/21 Status: Ordered metoprolol 100 mg oral tablet, [...] TAKE 1 CAPSULE BY MOUTH EVERY DAY, [facility]/pharmacy #0693 Start Date: 04/06/19 Status: Ordered tamsulosin 0.4 mg oral capsule See Instructions, TAKE 1 CAPSULE BY MOUTH EVERY DAY, # 90 capsule, Refills 1, Tot. Refills 1, Soft Stop, 03/08/21 15:59:00 EDT, Instructions Replace Required Details, Route to Pharmacy Electronically, [facility]/pharmacy #[id number], 170, cm, 02/23/21 11:12:00 EDT... Start Date: 03/08/21 Status: Ordered Testopel = 300 mg, Subcutaneous Infusion, Every 3 months, 0 Refills, Maintenance, 03/26/15 23:08:01 Start Date: 03/26/15 Status: Ordered Tresiba FlexTouch 200 units/mL subcutaneous solution See Instructions, Take 110 units daily in the evening. E11.65, # 18 mL, 10 Refills, Maintenance, 03/31/21 10:22:00 EDT, [facility]/pharmacy #0693, 170, cm, 03/20/21 9:07:00 EDT, Height, 92, kg, 09/14/19 14:18:00 EST, Dry Weight Start Date: 03/31/21 Status: Ordered Triumeq oral tablet 1 tablet, By Mouth, Daily, # 90 tablet, 0 Refills, Maintenance, 02/02/21 18:11:00 EDT, [facility]/pharmacy#0693, 1 tablet By Mouth Daily, 170, cm, 01/11/21 9:05:00 EDT, Height, 92, kg, 09/14/19 14:18:00 EST, Dry Weight Start Date: 02/02/21 Status: Ordered Trulicity Pen 3 mg/0.5 mL subcutaneous solution 0.5 mL = 3 mg, Subcutaneous Injection, Every week, Take 3mg once weekly. E11.65., # 2 mL, 5 Refills, Maintenance, 04/05/21 12:10:00 EDT, [facility], [facility], Partial fill upon patient request if the [...] Dates Health Status Cl inical Service Informant Hiccups Discharge Diagnosis 06/23/21 Memory change Discharge Diagnosis 06/23/21 Vital Signs Most recent to oldest [Reference Range]: 1 Height 170.00 cm (06/23/21 4:10 PM) Pulse Rate [55-90 bpm] 80 bpm (06/23/21 4:10 PM) Blood Pressure [90-138/55-84 mm Hg] 144/ 94mm Hg *H* (06/23/21 4:10 PM) Blood pressure sites Arm, right (06/23/21 4:10 PM) Social History Social History Type Response Smoking Status Former smoker, quit more than 30 days ago entered on: 12/29/18 Sex
--- OUTSIDE RECORDS SUMMARY | 2024-06-17 06:02 | XMS_ITS | Continuity of Care Document ---
Author Organization [facility] Address [address] [place] [address]- Care Team Providers Care Bin Filler Name Role Phone Maritza CABEZAS, Bailey Goss Primary Care Physic pierre Encounter [facility] ACCT R [id number] Date(s): 08/14/22 - 09/13/22 [facility] [address] [place] [address]- Attending Physician: Marie Ferrer Admitting Physician: AdmMarie pizano Referring Physician: Marie Ferrer Allergies, Adverse Reactions, Alerts No Known Allergies Immunizations Given and Recorded Vaccine Date Status Refusal Reason SARS-CoV-2 mRNA (nghmynz-ooih-yogxg) vax 10/18/21 Given influenza virus vaccine, inactivated [...] vaccine 7 05/28/09 Given 1Result Comment: [facility]: [id number] 2Admin Note: By Dr Granado 3Admin Note: Dr Granado 4Admin Note: [facility] 5Result Comment: Lot [id number] 6Admin Note: dr hall 7Result Comment: [employer] [id number] [id number] 27feblo Medications Aricept 5 mg oral tablet 5 mg, 1, tablet, By Mouth, Daily at bedtime, For memory loss, # 90 tablet, Refills 3, Tot. Refills 3, Maintenance, 08/17/22 17:19:00 EST, Route to Pharmacy Electronically, [facility]/pharmacy #[id number], Partialfill upon patient request if the prescription is fo... Start Date: 08/17/22 Status: Ordered aspirin 81 mg oral delayed release tablet = 81 mg, By Mouth, Daily, # 30 tablet, 0 Refills, Maintenance, 11/10/21 15:20:00 EST, EC Tablet, [facility]/pharmacy #[id number], Partial fill upon [...] tablet, 1 Refills, Maintenance, 04/20/22 13:02:00 EDT, [facility]/pharmacy #[id number], 1 tablet By [...] Stop 11/05/22 10:20:00EST, 11/10/21 10:20:00 EST, Tablet, [facility]/pharmacy #[id number], 175, cm, 10/27/21 13:06:00 EST, [...] Date: 06/19/22 Status: Ordered Metoprolol Succinate ER 100 mg oral tablet, extended release 1 tablet = 100 mg, By Mouth, Daily, # 90 tablet, 0 Refills, Maintenance, 08/14/22 9:53:00 EST, ER Tablet, Partial fill upon patient request if the prescription is for a schedule II opioid drug. Start Date: 08/14/22 Status: Ordered NovoLOG FlexPen 100 units/mL subcutaneous solution See Instructions, Subcutaneous Injection, 3 times daily before meals; give >150 : 10 units 3 times before meals., # 3 each, 8 Refills, Maintenance, 04/17/22 12:47:00 EDT, [facility]/pharmacy #[id number], Partial fill upon patient request if the prescription is for... Start Date: 04/17/22 Stop Date: 01/12/23 Status: Ordered Pen [place], 31 G x 5 mm BD Ultra [...] Replace Required Details, Route to Pharmacy Electronically, [facility]/pharmacy #[id number], 175, cm, 02/06/22 16:03:00 EDT... [...] of colon Confirmed Active Erythrocytosis Confirmed Active External hemorrhoids Confirmed Active History [...] ago entered on: 12/29/18 Sex Note * Event Display: Non BH Lab Results Authored Date: Patient Care team information Care Team Personnel Name: Nuzhat Sainz Position: [facility] Outreach Member Role: Lifetime Consulting Physician Name: Maritza CABEZAS, Bailey Goss Position: [facility] Primary Care Physician Member Role: PCP Address: Address: [address] [place] [address]- Name: Derik Gaines MD Position: [facility] Renal MD Member Role: Lifetime Consulting Physician Address: Address: [address] [place] [address] [address] [facility] [place] [address]- [place] Name: Jazmin Florez RN Position: [facility] RN Supv Member Role: Primary Care Nurse Name: Kiana Castelan Position: [facility] Outreach Member Role: Lifetime Consulting Physician Name: Bayron Brandt DO Position: [facility] Renal MD Member Role: Lifetime Consulting Physician Address: Address: [address] [facility] [address] [facility] [place], [place] - [place] Name: Amie Caldwell PharmD Position: [facility] Associate Professional Member Role: Lifetime Consulting Provider Address: Address: [address] [place] [address]- [place] Name: Eric Garcia RN Position: [facility] RN Member Role: Primary Care Nurse Name: Jaclyn Schulte RN Position: [facility] RN Member Role: Primary Care Nurse Name: Kavon Liu MD Position: Reference Physician Member Role: Lifetime Consulting Physician Address: Address: [address] [place] [address] [address] [facility] [place] [address]- Care Team Related Persons Name: DANA PERALES Address: home [address] [place] [address] Name: BO PERALES Address: home [address] [place] [address] Name: DANA BALTAZAR Address: [address] [place] [address] Name: NALDO AVALOS Address: home [address] [place] [address] Name: NALDO BARNARD Address: [address] [place] [address]
--- OUTSIDE RECORDS SUMMARY | 2024-06-17 06:02 | XMS_ITS | Continuity of Care Document ---
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 Refills 1, Maintenance, 07/10/16 21:05:57, Route to Pharmacy Electronically, [id number], [facility]/pharmacy #[id number] Start Date: 07/10/16 Stop Date: 01/06/17 Status: Ordered aspirin 81 mg oral enteric coated tablet 1 tablet = 81 mg, By Mouth, Daily, # 30 tablet, 3 Refills, Maintenance Start Date: 05/27/09 Status: Ordered BD UF RADHA PEN NEEDLE [id number] See Instructions, # 120 Unknown, Refills 5 [...] Refills, Maintenance, 06/13/20 8:06:00 EDT, [id number], 90, TAKE 1 TABLET BY MOUTH EVERY [...] 3 Refills, Maintenance, 08/30/20 8:19:00 EST, Tablet, [facility]/pharmacy #[id number], 170, cm, 03/29/20 10:57:00 EDT, [...] CHECK BLOOD SUGARS 3 TIMES A DAY, [facility]/pharmacy #[id number] Start Date: 03/10/19 Status: [...] Maintenance, 07/07/18 11:08:24 EDT,Route to Pharmacy Electronically, [id number], [facility]/pharmacy #[id number] Start Date: 07/07/18 Status: Ordered metFORMIN 500 mg oral tablet, extended release 2 tablet = 1,000 mg, By Mouth, Daily, # 180 tablet, 1 Refills, Maintenance, 11/09/19 16:29:00 EST, [facility]/pharmacy #0693, D/C RX on file [...] Instructions Replace Required Details, Route to Pharmacy Electronically,[facility]/pharmacy #[id number], 170, cm, 03/29/20 10:57:00 EDT,... Start Date: 08/31/20 Status: Ordered tamsulosin 0.4 mg oral capsule See Instructions, # 90 capsule, TAKE 1 CAPSULE BY MOUTH EVERY DAY, [facility]/pharmacy #[id number] Start Date: 04/06/19 Status: [...] mL, 5 Refills, Maintenance, 08/25/20 11:22:00 EST, [facility]/pharmacy #0693, 170, cm, 03/29/20 10:57:00 EDT, Height, 92, kg, 09/14/19 14:18:00 EST, Dry Weight Start Date: 08/25/20 Status: Ordered Triumeq oral tablet 1 tablet, By Mouth, Daily, # 90 tablet, 1 Refills, Maintenance, 08/30/20 11:56:00 EST, [id number], 90, TAKE 1 TABLET BY MOUTH EVERY [...]
--- OUTSIDE RECORDS SUMMARY | 2024-06-17 06:02 | XMS_ITS | Continuity of Care Document ---
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 Date(s): 01/11/20 - 01/18/20 [facility] [address] [place] [address]- [facility] Attending Physician: Geoff Glover DO Allergies, Adverse Reactions, [...] 3Admin Note: [facility] 4Result Comment: Lot [id number] (E) [id number] 5Admin Note: dr hall 6Result Comment: [employer] [id number] L287x 27feblo Medications amlodipine 10 mg oral tablet 10 mg, 1, tablet, By Mouth, Daily, pharmacy wants 90 days, # 90 tablet, Refills 1, Tot. Refills 1, Maintenance, 07/10/16 21:05:57, Route to Pharmacy Electronically, [id number], [facility]/pharmacy #[id number] Start Date: 07/10/16 Stop Date: 01/06/17 Status: Ordered aspirin 81 mg oral enteric coated tablet 1 tablet = 81 mg, By Mouth, Daily, # 30 tablet, 3 Refills, Maintenance Start Date: 05/27/09 Status: Ordered BD UF RADHA PEN NEEDLE [id number] See Instructions, # 120 Unknown, Refills 5 Tot. Refills 5, USE DAILY, [facility]/pharmacy #[id number] Start Date: 07/10/19 Status: Ordered buPROPion 150 mg/24 hours (XL) oral tablet, extended release 1 tablet = 150 mg, By Mouth, Every 24 hours, # 90 tablet, 1 Refills, Maintenance, 08/26/19 9:56:00 EST, ER Tablet, [facility]/pharmacy #[id number], 1 tablet By [...] CHECK BLOOD SUGARS 3 TIMES A DAY, [facility]/pharmacy #[id number] Start Date: 03/10/19 Status: [...] Maintenance, 07/07/18 11:08:24 EDT,Route to Pharmacy Electronically, [id number], [facility]/pharmacy #[id number] Start Date: 07/07/18 Status: Ordered metFORMIN 500 mg oral tablet, extended release 2 tablet = 1,000 mg, By Mouth, Daily, # 180 tablet, 1 Refills, Maintenance, 11/09/19 16:29:00 EST, [facility]/pharmacy #0693, D/C RX on file [...] MOUTH EVERY DAY, [facility] Start Date: 06/01/19 Status: Ordered tamsulosin [...]
--- OUTSIDE RECORDS SUMMARY | 2024-06-17 06:02 | XMS_ITS | Continuity of Care Document ---
Author Organization [facility] Address [address] [place] [address]- Care Team Providers Care Medical Claims Specialist Name Role Phone Maritza CABEZAS, Bailey Goss Primary Care Physic pierre Encounter [facility] Date(s): 02/17/21 - 03/19/21 [facility] [address] [place] [address]- Allergies, Adverse Reactions, Alerts Substance Reaction Severity [...] 3Admin Note: [facility] 4Result Comment: Lot [id number] (E) [id number] 5Admin Note: dr hall 6Result Comment: [employer] [id number] L287x 27feblo Medications amlodipine 10 mg oral tablet 10 mg, 1, tablet, By Mouth, Daily, pharmacy wants 90 days, # 90 tablet, Refills 1, Tot. Refills 1, Maintenance, 07/10/16 21:05:57, Route to Pharmacy Electronically, [id number], [facility]/pharmacy #[id number] Start Date: 07/10/16 Stop Date: 01/06/17 Status: Ordered aspirin 81 mg oral enteric coated tablet 1 tablet = 81 mg, By Mouth, Daily, # 30 tablet, 3 Refills, Maintenance Start Date: 05/27/09 Status: Ordered BD UF RADHA PEN NEEDLE [id number] See Instructions, # 120 Unknown, Refills 5 Tot. Refills 5, USE DAILY, [facility]/pharmacy #[id number] Start Date: 07/10/19 Status: Ordered [...] tablet, 1 Refills, Maintenance, 06/13/20 8:06:00 EDT, [facility] STORE [facility], 90, TAKE 1 TABLET BY MOUTH EVERY 24 HOURS, 170, cm, 03/29/20 10:57:00 EDT, Height, 92, kg, 09/14/19 14:18:00 EST, Dry Weight Start Date: 06/13/20 Status: Ordered Crestor 40 mg oral tablet 1 tablet = 40 mg, By Mouth, Daily, # 90 tablet, 3 Refills, Maintenance, 08/30/20 8:19:00 EST, Tablet, [facility]/pharmacy #[id number], 170, cm, 03/29/20 10:57:00 EDT, [...] CHECK BLOOD SUGARS 3 TIMES A DAY, [facility]/pharmacy #0693 Start Date: 03/10/19 Status: Ordered [...] Maintenance, 07/07/18 11:08:24 EDT,Route to Pharmacy Electronically, [id number], [facility]/pharmacy #0693 Start Date: 07/07/18 Status: Ordered [...] Replace Required Details, Route to Pharmacy Electronically, [facility]/pharmacy #0693, 170, cm, 02/23/21 11:12:00 EDT... [...]
--- OUTSIDE RECORDS SUMMARY | 2024-06-17 06:02 | XMS_ITS | Continuity of Care Document ---
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: [id number] 2Admin Note: By Dr Granado 3Admin Note: Dr Granado 4Admin Note: [facility] 5Result Comment: Lot [id number] (E) [id number] 6Admin Note: dr hall 7Result Comment: [employer] [id number] L287x 27feblo Medications abacavir 300 mg oral [...] 0 Refills, Maintenance, 11/10/21 15:20:00 EST, Tablet, [facility]/pharmacy #[id number], Partial fill upon patient request if the prescription is for a schedule II opioid drug., 175, cm, 10/27/21 13:06:00 EST, Height... Start Date: 11/10/21 Status: Ordered metoprolol 50 mg oral tablet 50 mg, 1, tablet, By Mouth, 2 times a day, # 180 tablet, Refills 0, Tot. Refills 0, Maintenance, 12/20/21 15:57:00 EDT, Route to Pharmacy Electronically, [facility]/pharmacy #0693, Partial fill upon patientrequest if [...] 3 each, 5 Refills,Maintenance, 10/19/21 12:47:00 EST, [facility] P... Start Date: 10/19/21 Stop Date: 04/17/22 Status: Ordered Pen [place], 31 G x 5 mm BD Ultra [...] Replace Required Details, Route to Pharmacy Electronically, [facility]/pharmacy #0693, 175, cm, 12/06/21 8:15:00 EDT,... Start Date: 12/20/21 Status: Ordered Testopel = 300 mg, Subcutaneous Infusion, Every 3 months, 0 Refills, Maintenance, 03/26/15 23:08:01 Start Date: 03/26/15 Status: Ordered Tresiba FlexTouch 200 units/mL subcutaneous solution See Instructions, Take 28 units daily at lunch. E11.65, # 18 mL, 10 Refills, Maintenance, 03/31/21 10:22:00 EDT, [facility]/pharmacy #0693, 170, cm, 03/20/21 9:07:00 EDT, Height, 92, kg, 09/14/19 14:18:00 EST, Dry Weight Start Date: 03/31/21 Status: Ordered Trulicity Pen 3 mg/0.5 mL subcutaneous solution 0.5 mL = 3 mg, Subcutaneous Injection, Every week, Take 3mg once weekly. E11.65., # 2 mL, 5 Refills, Maintenance, 10/26/21 16:50:00 EST, Solution, [facility]/pharmacy #0693, Partial fill upon [...]
--- OUTSIDE RECORDS SUMMARY | 2024-06-17 06:02 | XMS_ITS | Continuity of Care Document ---
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 Role Phone Geoff Glover DO Primary Care Physician [phone] Encounter [facility] Date(s): 12/29/19 - 02/03/20 [facility] [address] [place] [address]- [facility] Attending Physician: Jamarcus CABEZAS, Demetri Waller Referring Physician: Geoff Glover DO Allergies, Adverse [...] 3Admin Note: [facility] 4Result Comment: Lot [id number] (E) [id number] 5Admin Note: dr hall 6Result Comment: [employer] [id number] L287x 27feblo Medications amlodipine 10 mg oral tablet 10 mg, 1, tablet, By Mouth, Daily, pharmacy wants 90 days, # 90 tablet, Refills 1, Tot. Refills 1, Maintenance, 07/10/16 21:05:57, Route to Pharmacy Electronically, [id number], [facility]/pharmacy #[id number] Start Date: 07/10/16 [...] 02/07/20 10:45:00 EDT, 01/31/20 10:45:00 EDT, Tablet, [facility]/pharmacy #0693, 170.5, cm, 01/31/20 10:18:00 EDT, Height, 92, kg, 09/14/19 14:18:00 EST, Dry Weight Start Date: 01/31/20 Stop Date: 02/07/20 Status: Ordered BD UF RADHA PEN NEEDLE [id number] See Instructions, # 120 Unknown, Refills 5 Tot. Refills 5, USE DAILY, [facility]/pharmacy #0693 Start Date: 07/10/19 Status: Ordered buPROPion 150 mg/24 hours (XL) oral tablet, extended release 1 tablet = 150 mg, By Mouth, Every 24 hours, # 90 tablet, 1 Refills, Maintenance, 08/26/19 9:56:00 EST, ER Tablet, [facility]/pharmacy #0693, 1 tablet By Mouth Every [...] Maintenance, 07/07/18 11:08:24 EDT,Route to Pharmacy Electronically, [id number], [facility]/pharmacy #0693 Start Date: 07/07/18 Status: Ordered metFORMIN 500 mg oral tablet, extended release 2 tablet = 1,000 mg, By Mouth, Daily, # 180 tablet, 1 Refills, Maintenance, 11/09/19 16:29:00 EST, [facility]/pharmacy #0693, D/C RX on file 1000mg [...] TAKE 1 CAPSULE BY MOUTH EVERY DAY, [facility]/pharmacy #0693 Start Date: 06/01/19 Status: Ordered [...] mL, 5 Refills, Maintenance, 09/18/19 15:13:00 EST, [facility]/pharmacy #0693, D/C RX ON FILE FOR [...]
--- OUTSIDE RECORDS SUMMARY | 2024-06-17 06:02 | XMS_ITS | Continuity of Care Document ---
Author Organization [facility] Address [address] [place] [address]- Care Team Providers Care Attorney General Name Role Phone Maritza CABEZAS, Bailey Goss Primary Care Physic pierre Encounter [facility] Date(s): 10/19/21 - 11/18/21 [facility] [address] [place] [address]- Allergies, Adverse Reactions, Alerts No Known Allergies Immunizations Given and Recorded Vaccine Date Status Refusal Reason SARS-CoV-2 mRNA (qfhvkkw-hfob-bntix) vax 10/18/21 Given influenza virus vaccine, inactivated [...] 23-valent vaccine 7 05/28/09 Given 1Result Comment: [facility]: [id number] 2Admin Note: By Dr Granado 3Admin Note: Dr Granado 4Admin Note: [facility] 5Result Comment: Lot [id number]) [id number] 6Admin Note: dr hall 7Result Comment: [employer] [id number] L287x 27feblo Medications abacavir 300 mg oral tablet 2 tablet = 600 mg, By Mouth, Daily, # 60 tablet, 0 Refills, Maintenance, 11/10/21 15:20:00 EST, Tablet, [facility], Partial fill upon patient request if the prescription is for a schedule II opioid drug., 175, cm, 10/27/21 13:06:00 EST, Height... Start Date: 11/10/21 Status: Ordered amiodarone 200 mg oral tablet See Instructions, Take 2 tablets (400mg) 2 times a day through 10/20/21. Then on 10/21 take 1 tablet (200mg) 2 times a day for 30 days., # 66 tablet, Refills 0, Tot. Refills 0, Maintenance, 10/19/21 12:09:00 EST, Instructions Replace Required Details, R... Start Date: 10/19/21 Status: Ordered aspirin 81 mg oral delayed [...] = 40 mg, By Mouth, Daily, # 30 tablet, 0 Refills, Maintenance, 11/05/22 10:20:00 EST, [facility], cm, 10/27/21 13:06:00 EST, Height, 78.5, kg, 10/10/21 0:43:00 EST, Dry Weight Start Date: 11/05/22 Status: Ordered Crestor 40 mg oral tablet 1 tablet = 40 mg, By Mouth, Daily, for 90 days, # 90 tablet, 3 Refills, Hard Stop 11/05/22 10:20:00EST, 11/10/21 10:20:00 EST, Tablet, [facility], 175, cm, 10/27/21 13:06:00 EST, Height, 78.5, kg, 10/10/21 0:43:00 EST, Dry Weight Start Date: 11/10/21 Stop Date: 11/05/22 Status: Ordered dolutegravir 50 mg oral tablet 1 tablet = 50 mg, By Mouth, Daily, # 30 tablet, 0 Refills, Maintenance, 11/10/21 15:20:00 EST, Tablet, [facility], Partial fill upon patient request if the prescription is for a schedule II opioid drug., 175, cm, 10/27/21 13:06:00 EST, Height,... Start Date: 11/10/21 Status: Ordered Freestyle Lite Lancets See Instructions, [...] 0 Refills, Maintenance, 11/10/21 15:20:00 EST, Tablet, [facility]/pharmacy #0693, Partial fill upon patient request if the prescription is for a schedule II opioid drug., 175, cm, 10/27/21 13:06:00 EST, Height... Start Date: 11/10/21 Status: Ordered metoprolol 50 mg oral tablet 50 mg, 1, tablet, By Mouth, 2 times a day, # 60 tablet, Refills 0, Tot. Refills 0, Maintenance, 11/10/21 15:20:00 EST, Route to Pharmacy Electronically, [facility]/pharmacy #0693, Partial fill upon patient [...] 3 each, 5 Refills,Maintenance, 10/19/21 12:47:00 EST, [facility]... Start Date: 10/19/21 Stop Date: 04/17/22 Status: Ordered Pen [place], 31 G x 5 mm BD Ultra [...] Replace Required Details, Route to Pharmacy Electronically, [facility]/pharmacy #0693, 175, cm, 10/27/21 13:06:00 EST... Start Date: 11/10/21 Stop Date: 12/10/21 Status: Ordered Testopel = 300 mg, Subcutaneous Infusion, Every 3 months, 0 Refills, Maintenance, 03/26/15 23:08:01 Start Date: 03/26/15 Status: Ordered Tresiba FlexTouch 200 units/mL subcutaneous solution See Instructions, Take 35 units daily at lunch. E11.65, # 18 mL, 10 Refills, Maintenance, 03/31/21 10:22:00 EDT, [facility]/pharmacy #0693, 170, cm, 03/20/21 9:07:00 EDT, Height, 92, kg, 09/14/19 14:18:00 EST, Dry Weight Start Date: 03/31/21 Status: Ordered Trulicity Pen 3 mg/0.5 mL subcutaneous solution 0.5 mL = 3 mg, Subcutaneous Injection, Every week, Take 3mg once weekly. E11.65., # 2 mL, 5 Refills, Maintenance, 10/26/21 16:50:00 EST, Solution, [facility]/pharmacy #0693, Partial fill upon patient request if the prescription is for a schedule II opioid . Start Date: 10/26/21 Status: Ordered warfarin 1 [...]
--- OUTSIDE RECORDS SUMMARY | 2024-06-17 06:02 | XMS_ITS | Continuity of Care Document ---
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 Refills 1, Maintenance, 07/10/16 21:05:57, Route to Pharmacy Electronically, [id number], [facility]/pharmacy #[id number] Start Date: 07/10/16 Stop Date: 01/06/17 Status: Ordered aspirin 81 mg oral enteric coated tablet 1 tablet = 81 mg, By Mouth, Daily, # 30 tablet, 3 Refills, Maintenance Start Date: 05/27/09 Status: Ordered BD UF RADHA PEN NEEDLE [id number] See Instructions, # 120 Unknown, Refills 5 Tot. Refills 5, USE DAILY, [facility]/pharmacy #[id number] Start Date: 07/10/19 Status: Ordered BD [...] tablet, 1 Refills, Maintenance, 06/13/20 8:06:00 EDT, [facility] STORE [id number], 90, TAKE 1 TABLET BY MOUTH EVERY 24 HOURS, 170, cm, 03/29/20 10:57:00 EDT, Height, 92, kg, 09/14/19 14:18:00 EST, Dry Weight Start Date: 06/13/20 Status: Ordered Crestor 40 mg oral tablet 1 tablet = 40 mg, By Mouth, Daily, # 90 tablet, 3 Refills, Maintenance, 08/30/20 8:19:00 EST, Tablet, [facility]/pharmacy #[id number], 170, cm, 03/29/20 10:57:00 EDT, Height, [...] BLOOD SUGARS 3 TIMES A DAY, [facility]/pharmacy #[id number] Start Date: 03/10/19 Status: [...] Maintenance, 07/07/18 11:08:24 EDT,Route to Pharmacy Electronically, [id number], [facility]/pharmacy #[id number] Start Date: 07/07/18 Status: Ordered metoprolol [...] Replace Required Details, Route to Pharmacy Electronically,[facility]/pharmacy #[id number], 170, cm, 03/29/20 10:57:00 EDT,... Start Date: 08/31/20 Status: Ordered tamsulosin 0.4 mg oral capsule See Instructions, # 90 capsule, TAKE 1 CAPSULE BY MOUTH EVERY DAY, [facility]/pharmacy #[id number] Start Date: 04/06/19 Status: Ordered Testopel [...] 1 Refills, Maintenance, 11/21/20 14:20:00 EDT, Solution, [facility]pharmacy #[id number], 170, cm, 03/29/20 10:57:00 EDT, Height, [...]
--- OUTSIDE RECORDS SUMMARY | 2024-06-17 06:02 | XMS_ITS | Continuity of Care Document ---
Author Organization [facility] Sigifred[facility] ayush Address [address] [place] [address] [place] [address]- Care Team Providers Care Snuff Maker Name Role Phone Maritza CABEZAS, Baiely Goss Primary Care Physic pierre [facility] Date[facility]s): 11/10/21 - 11/17/21 [facility] [address] [place] [address]- Attending Physician: Javier Dodson MD Referring Physician: Bailey Salas MD Allergies, Adverse Reactions, Alerts No Known Allergies Immunizations Given and Recorded Vaccine Date Status Refusal Reason SARS-CoV-2 mRNA ([id number]) vax 10/18/21 Given influenza virus vaccine, inactivated [...] vaccine 7 05/28/09 Given 1Result Comment: [facility]: 57607-917-14 2Admin Note: By Dr Granado 3Admin Note: Dr Granado 4Admin Note: [facility] 5Result Comment: Lot [id number] 6Admin Note: dr hall 7Result Comment: [employer] [id number] L287x 27feblo Medications abacavir 300 mg oral [...] tablet, 0 Refills, Maintenance, 11/10/21 15:20:00 EST, [facility]/pharmacy #[id number], 1 tablet By Mouth Every 24 hours, 175, cm, 10/27/21 13:06:00 EST, Height, 78.5, kg,10/10/21 0:43:00 EST, Dry Weight Start Date: 11/10/21 Status: Ordered Crestor 40 mg oral tablet 1 tablet = 40 mg, By Mouth, Daily, # 30 tablet, 0 Refills, Maintenance, 11/05/22 10:20:00 EST, Tablet, [facility]/pharmacy #[id number], 175, cm, 10/27/21 13:06:00 EST, Height, 78.5, kg, 10/10/21 0:43:00 EST, Dry Weight Start Date: 11/05/22 Status: Ordered Crestor 40 mg oral tablet 1 tablet = 40 mg, By Mouth, Daily, for 90 days, # 90 tablet, 3 Refills, Hard Stop 11/05/22 10:20:00EST, 11/10/21 10:20:00 EST, Tablet, [facility]/pharmacy #[id number], 175, cm, 10/27/21 13:06:00 EST, Height, 78.5, kg, 10/10/21 0:43:00 EST, Dry Weight Start Date: 11/10/21 Stop Date: 11/05/22 Status: Ordered dolutegravir 50 mg oral tablet 1 tablet = 50 mg, By Mouth, Daily, # 30 tablet, 0 Refills, Maintenance, 11/10/21 15:20:00 EST, Tablet, [facility]/pharmacy #[id number], Partial fill upon patient request [...] 0 Refills, Maintenance, 11/10/21 15:20:00 EST, Tablet, [facility]/pharmacy #[id number], Partial fill upon patient request if the prescription is for a schedule II opioid drug., 175, cm, 10/27/21 13:06:00 EST, Height... Start Date: 11/10/21 Status: Ordered metoprolol 50 mg oral tablet 50 mg, 1, tablet, By Mouth, 2 times a day, # 60 tablet, Refills 0, Tot. Refills 0, Maintenance, 11/10/21 15:20:00 EST, Route to Pharmacy Electronically, [facility]/pharmacy #[id number], Partial fill upon patient request [...] 10/19/21 Stop Date: 04/17/22 Status: Ordered Pen [place], 31 G x 5 mm BD Ultra [...] Replace Required Details, Route to Pharmacy Electronically, [facility]/pharmacy #[id number], 175, cm, 10/27/21 13:06:00 EST... Start Date: 11/10/21 Stop Date: 12/10/21 Status: Ordered Testopel = 300 mg, Subcutaneous Infusion, Every 3 months, 0 Refills, Maintenance, 03/26/15 23:08:01 Start Date: 03/26/15 Status: Ordered Tresiba FlexTouch 200 units/mL subcutaneous solution See Instructions, Take 35 units daily at lunch. E11.65, # 18 mL, 10 Refills, Maintenance, 03/31/21 10:22:00 EDT, [facility]/pharmacy #[id number], 170, cm, 03/20/21 9:07:00 EDT, Height, 92, kg, 09/14/19 14:18:00 EST, Dry Weight Start Date: 03/31/21 Status: Ordered Trulicity Pen 3 mg/0.5 mL subcutaneous solution 0.5 mL = 3 mg, Subcutaneous Injection, Every week, Take 3mg once weekly. E11.65., # 2 mL, 5 Refills, Maintenance, 10/26/21 16:50:00 EST, Solution, [facility]/pharmacy #[id number], Partial fill upon patient request if the prescription is for a schedule II opioid drAlysha. Start Date: 10/26/21 Status: Ordered warfarin 1 mg oral tablet See Instructions, Take 4 tablets (4mg tonight), then as directed based on daily INR, # 120 tablet, 0 Refills, Maintenance, 11/10/21 15:20:00 EST, Tablet, [id number], Partial fill upon patientrequest if the prescription [...]
--- OUTSIDE RECORDS SUMMARY | 2024-06-17 06:02 | XMS_ITS | Continuity of Care Document ---
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 Role Phone Maritza CABEZAS, Bailey Goss Primary Care Physic pierre Encounter [facility] Date(s): 07/26/21 - 08/25/21 [facility] [address] [place] [id number] Allergies, Adverse Reactions, Alerts Substance Reaction Severity Status NKA Active Immunizations Given and Recorded Vaccine Date Status Refusal Reason influenza virus vaccine, inactivated 1 07/10/21 Gi [...] vaccine 7 05/28/09 Given 1Result Comment: [facility]: 43243-597-62 2Admin Note: By Dr Granado 3Admin Note: Dr Granado 4Admin Note: [facility] 5Result Comment: Lot [id number] ([id number]) [id number] 6Admin Note: dr isabel 7Result Comment: [employer] [id number] L287x 27feblo Medications amlodipine 10 mg oral tablet 10 mg, 1, tablet, By Mouth, Daily, pharmacy wants 90 days, # 90 tablet, Refills 1, Tot. Refills 1, Maintenance, 07/10/16 21:05:57, Route to Pharmacy Electronically, [id number], [id number] Start Date: 07/10/16 Stop Date: 01/06/17 Status: Ordered aspirin 81 mg oral enteric coated tablet 1 tablet = 81 mg, By Mouth, Daily, # 30 tablet, 3 Refills, Maintenance Start Date: 05/27/09 Status: Ordered BD UF PEN NEEDLE 4MM [...] Date: 06/07/21 Stop Date: 03/04/22 Status: Ordered lisinopril 20 mg oral tablet 20 mg, By Mouth, Daily, # 90 tablet, Refills 0, Tot. Refills 0, Maintenance, 07/07/18 11:08:24 EDT,Route to Pharmacy Electronically, [id number], [facility]/pharmacy [facility][id number] Start Date: 07/07/18 Status: Ordered metoclopramide 10 mg oral tablet 1 tablet = 10 mg, By Mouth, 4 times a day, # 28 tablet, 0 Refills, Maintenance, 06/17/21 16:38:00 EDT, Tablet, [facility]/pharmacy #[id number], Partial fill [...] 11:31:24, Tablet Start Date: 02/06/17 Status: Ordered tamsulosin 0.4 mg oral capsule [...] Refills, Maintenance, 04/05/21 12:10:00 EDT, Solution, [id number], Partial fill upon [...]
--- OUTSIDE RECORDS SUMMARY | 2024-06-17 06:02 | XMS_ITS | Continuity of Care Document ---
Author Organization [facility] Address [address] [place] [address]- Care Team Providers Care Nursing Home Administrator Name Role Phone Maritza CABEZAS, Bailey Goss Primary Care Physic pierre [facility]counter [facility] Date(s): 09/17/22 - 09/24/22 [facility] [address] [place], [place] [address] Attending Physician: Aubrey De La Garza DO Referring Physician: Maritza CABEZAS, Bailey Goss Allergies, Adverse Reactions, Alerts No Known Allergies Immunizations Given and Recorded Vaccine Date Status Refusal Reason SARS-CoV-2 mRNA (sbfjktr-fkmh-jgjpf) vax 10/18/21 Given influenza virus vaccine, inactivated [...] 23-valent vaccine 7 05/28/09 Given 1Result Comment: [facility]: 32962-512-64 2Admin Note: By Dr Granado 3Admin Note: Dr Granado 4Admin Note: [facility] 5Result Comment: Lot [id number]) [id number] 6Admin Note: dr hall 7Result Comment: [facility] [id number] 27feblo Medications Aricept 5 mg oral [...] Refills, Maintenance, 11/10/21 15:20:00 EST, EC Tablet, [facility]/pharmacy #[id number], Partial [...] tablet, 1 Refills, Maintenance, 04/20/22 13:02:00 EDT, [facility]/pharmacy #[id number], 1 tablet By Mouth Every 24 [...] Stop 11/05/22 10:20:00EST, 11/10/21 10:20:00 EST, Tablet, [facility]/pharmacy #[id number], 175, cm, 10/27/21 13:06:00 EST, Height, [...] 04/17/22 Stop Date: 01/12/23 Status: Ordered Pen Milmine, 31 G x 5 mm BD Ultra [...] [facility]/pharmacy #[id number], 175, cm, 02/06/22 16:03:00 EDT... Start [...] oldest [Reference Range]: 1 Height 175 cm (09/17/22 12:06 PM) Oxygen Saturation [94-100 %] 99 % (09/17/22 12:06 PM) Pulse Rate [55-90 bpm] 78 bpm (09/17/22 12:06 PM) Blood Pressure [90-138/55-84 mm Hg] 150/ 95mm Hg *H* (09/17/22 12:06 PM) Respiratory Rate [16-30 br/min] 20 br/mi n (09/17/22 12:06 PM) Temperature [96.8-100.4 DegF] 98.3 DegF (09/17/22 12:06 PM) Mode of Delivery (Oxygen) Room air (09/17/22 12:06 PM) Blood pressure sites Arm, left (09/17/22 12:06 PM) Temperature Route Temporal (09/17/22 12:06 PM) Social History Social History Type Response Smoking Status Former smoker, quit more than 30 days ago entered on: 12/29/18 Sex Note * Rosey Angel: PERFORM, SIGN, VERIFY Event Display: Patient Education/Instruction Authored Date: [id number] [facility] *[facility] Clinical Summary Name MILAGROS PERALES Age 72 Years 1950 PCP Maritza CABEZAS, Bailey Goss PCP Visit Date 09/17/2022 10:25:00 Additional Instructions: Symptoms likely related to chronic pain in the area and muscle spasms. Rest as much as practical. Avoid heavy lifting. Gentle stretching as tolerated. Ice or heat 20 minutes at a time every 2-3 hours daily. Tylenol (acetaminophen) 1000 mg every 6-8 hours as needed. May take your muscle relaxer as directed as needed for pain not alleviated by above methods. Do notdrive, drink alcohol, or operate machinery while on this medication. Follow up with orthopedics as soon as possible. Go to the ER sooner for any new or worsening symptoms. Scheduled Appointments?? Future Appointments ?*[facility] ?[address]??[place],??[place],??[address] ?Phone:??--?Fax:??-- ?Appt. Date:??09/26/2022?2:00 PM ?Scheduled Provider:??Nataly CABEZAS , Bailey Goss ?*[facility] ?[address]??[place],??[place],??[address] ?Phone:??--?Fax:??-- ?Appt. Date:??10/03/2022?2:25 PM ?Scheduled Provider:??Ron CABEZAS, Jorge Campo Follow-Up Instructions ?? Diagnosis Medications: Please continue your medications until treatment is completed or stopped by your provider. Discuss any questions related to medications with your provider. Medications to Continue with No Changes These medications were not printed or sent to your pharmacy Aspirin (aspirin 81 mg oral delayed release tablet) 81 Milligram Oral Daily. Refills: 0. Next Dose: BuPROpion (buPROPion 150 mg/24 hours (XL) oral tablet, extended release) 1 tab(s) Oral every 24 hours for 90 Days. Refills: 1. Next Dose: cabotegravir-rilpivirine (Cabenuva 400/600 intramuscular suspension, extended release) Intramuscular. Next Dose: Donepezil (Aricept 5 mg oral tablet) 1 tab(s) Oral Daily at Bedtime. For memory loss. Refills: 3. Next Dose: dulaglutide (Trulicity Pen 3 mg/0.5 mL subcutaneous solution) 0.5 Milliliter Subcutaneous Injectionevery week. Take 3mg once weekly. .. Refills: 5. Next Dose: Durable Medical Equipment (Freestyle Lite Lancets) Use to check blood sugars 3 times daily. .Refills: 5. Next Dose: Durable Medical Equipment (Freestyle Lite Monitor) e11 Test BG 3 times daily. Refills: 0. Next Dose: Durable Medical Equipment (Freestyle Lite Test Strips) 90 day supply Use to check blood sugars 3 times daily. . Refills: 2. Next Dose: Durable Medical Equipment (Pen Milmine, 31 G x 5 mm BD Ultra Fine III) use as directed for Type 2 Diabetes Mellitus. Refills: 5. Next Dose: Insulin Aspart (NovoLOG FlexPen 100 units/mL subcutaneous solution) 3 times daily before meals; give >150 : 10 units 3 times before meals.. Refills: 8. Next Dose: insulin degludec (Tresiba FlexTouch 200 units/mL subcutaneous solution) Take 22 units daily at lunch. . Refills: 10. Next Dose: Lisinopril 20 Milligram Oral Daily. Next Dose: Metoprolol (Metoprolol Succinate ER 100 mg oral tablet, extended release) 1 tab(s) Oral Daily. Next Dose: Miscellaneous Rx (BD UF PEN NEEDLE 4MM x 32G) Use to inject insulin once daily. . Refills: 11. Next Dose: Rosuvastatin (Crestor 40 mg oral tablet) 1 tab(s) Oral Daily for 90 Days. Refills: 3. Next Dose: Tamsulosin (tamsulosin 0.4 mg oral capsule) TAKE 1 CAPSULE BY MOUTH EVERY DAY. Refills: 1. Next Dose: Testosterone (Testopel) 300 Milligram Subcutaneous Infusion Every 3 months. Next Dose: Allergy Info:?? NKA Medications Given This Visit Future Orders ?No future orders Vital Signs Height 175 cm Weight BMI Blood Pressure 150 mm Hg/95 mm Hg Temperature 98.3 DegF Pulse Rate 78 bpm Respiratory Rate 20 br/min 02 Sat Mode of Delivery 99 %/Room air You can now view a summary of your hospital visit from the comfort of your home through a free online portal called [employer]. [employer] is a website that allows you to securely view your medical information including discharge summary, medications and follow-up visits. ??You can alsosend a secure electronic message to your doctor???s office to request appointments, renew medications or just ask a question. You can enroll at [email or web address] or register during your next office visit. Disclaimer:?? The information provided is of a general nature and is intended to be used in conjunction with the recommendations and advice of your health care practitioner. ??Every effort has been made to ensure that the information provided is accurate and complete at the time it is provided to you however, as your needs change, or, as new ??information becomes available, different or additional instructions may be required. If you have questions, please consult with your primary care provider or pharmacist, as appropriate. ??This information is not intended to serve as substitution for assessment and evaluation by a qualified health care provider. If you do not have a primary care provider, you may find a [facility] provider by calling [facility] [employer] Link at [phone]. For information about the plan of care including goals and instructions for your diagnosis, please see the patient education orders section of this document. Patient Education Materials?? The content of this educational material or handout may have been modified, supplemented, or adapted from its original content and format to support your individualized medical care. * Hans Stevenson: PERFORM, SIGN, VERIFY Event Display: Patient Education/Instruction Authored Date: [id number] [facility] *[facility] Clinical Summary Name MILAGROS PERALES Age 72 Years 1950 PCP Bailey Salas MD PCP Visit Date 09/17/2022 10:25:00 Additional Instructions: Symptoms likely related to chronic pain in the area and muscle spasms. Rest as much as practical. Avoid heavy lifting. Gentle stretching as tolerated. Ice or heat 20 minutes at a time every 2-3 hours daily. Tylenol (acetaminophen) 1000 mg every 6-8 hours as needed. May take your muscle relaxer as directed as needed for pain not alleviated by above methods. Do notdrive, drink alcohol, or operate machinery while on this medication. Follow up with orthopedics as soon as possible. Go to the ER sooner for any new or worsening symptoms. Scheduled Appointments?? Future Appointments ?*[facility] ?[address]??[place],??[place],??[address] ?Phone:??--?Fax:??-- ?Appt. Date:??09/26/2022?2:00 PM ?Scheduled Provider:??Bailey Ingram MD ?*[facility] ?[address]??[place],??[place],??[address] ?Phone:??--?Fax:??-- ?Appt. Date:??10/03/2022?2:25 PM ?Scheduled Provider:??Ron CABEZAS, Jorge Campo Follow-Up Instructions ?? Diagnosis Medications: Please continue your medications until treatment is completed or stopped by your provider. Discuss any questions related to medications with your provider. Medications to Continue with No Changes These medications were not printed or sent to your pharmacy Aspirin (aspirin 81 mg oral delayed release tablet) 81 Milligram Oral Daily. Refills: 0. Next Dose: BuPROpion (buPROPion 150 mg/24 hours (XL) oral tablet, extended release) 1 tab(s) Oral every 24 hours for 90 Days. Refills: 1. Next Dose: cabotegravir-rilpivirine (Cabenuva 400/600 intramuscular suspension, extended release) Intramuscular. Next Dose: Donepezil (Aricept 5 mg oral tablet) 1 tab(s) Oral Daily at Bedtime. For memory loss. Refills: 3. Next Dose: dulaglutide (Trulicity Pen 3 mg/0.5 mL subcutaneous solution) 0.5 Milliliter Subcutaneous Injectionevery week. Take 3mg once weekly. .. Refills: 5. Next Dose: Durable Medical Equipment (Freestyle Lite Lancets) Use to check blood sugars 3 times daily. .Refills: 5. Next Dose: Durable Medical Equipment (Freestyle Lite Monitor) Test BG 3 times daily. Refills: 0. Next Dose: Durable Medical Equipment (Freestyle Lite Test Strips) 90 day supply Use to check blood sugars 3 times daily. . Refills: 2. Next Dose: Durable Medical Equipment (Pen Milmine, 31 G x 5 mm BD Ultra Fine III) use as directed for Type 2 Diabetes Mellitus. Refills: 5. Next Dose: Insulin Aspart (NovoLOG FlexPen 100 units/mL subcutaneous solution) 3 times daily before meals; give >150 : 10 units 3 times before meals.. Refills: 8. Next Dose: insulin degludec (Tresiba FlexTouch 200 units/mL subcutaneous solution) Take 22 units daily at lunch. . Refills: 10. Next Dose: Lisinopril 20 Milligram Oral Daily. Next Dose: Metoprolol (Metoprolol Succinate ER 100 mg oral tablet, extended release) 1 tab(s) Oral Daily. Next Dose: Miscellaneous Rx (BD UF PEN NEEDLE 4MM x 32G) Use to inject insulin once daily. . Refills: 11. Next Dose: Rosuvastatin (Crestor 40 mg oral tablet) 1 tab(s) Oral Daily for 90 Days. Refills: 3. Next Dose: Tamsulosin (tamsulosin 0.4 mg oral capsule) TAKE 1 CAPSULE BY MOUTH EVERY DAY. Refills: 1. Next Dose: Testosterone (Testopel) 300 Milligram Subcutaneous Infusion Every 3 months. Next Dose: Allergy Info:?? NKA Medications Given This Visit Future Orders ?No future orders Vital Signs Height 175 cm Weight BMI Blood Pressure 150 mm Hg/95 mm Hg Temperature 98.3 DegF Pulse Rate 78 bpm Respiratory Rate 20 br/min 02 Sat Mode of Delivery 99 %/Room air You can now view a summary of your hospital visit from the comfort of your home through a free online portal called [employer]ralCast. [employer]Cast is a website that allows you to securely view your medical information including discharge summary, medications and follow-up visits. ??You can alsosend a secure electronic message to your doctor???s office to request appointments, renew medications or just ask a question. You can enroll at [email or web address] or register during your next office visit. Disclaimer:?? The information provided is of a general nature and is intended to be used in conjunction with the recommendations and advice of your health care practitioner. ??Every effort has been made to ensure that the information provided is accurate and complete at the time it is provided to you however, as your needs change, or, as new ??information becomes available, different or additional instructions may be required. If you have questions, please consult with your primary care provider or pharmacist, as appropriate. ??This information is not intended to serve as substitution for assessment and evaluation by a qualified health care provider. If you do not have a primary care provider, you may find a [facility] provider by calling [facility] [employer] Link at [phone]. For information about the plan of care including goals and instructions for your diagnosis, please see the patient education orders section of this document. Patient Education Materials?? The content of this educational material or handout may have been modified, supplemented, or adapted from its original content and format to support your individualized medical care. Patient Care team information Care Team Personnel Name: Nuzhat Sainz Position: [facility] Outreach Member Role: Lifetime Consulting Physician Name: Maritza CABEZAS, Bailey Goss Position: [facility] Primary Care Physician Member Role: PCP Address: Address: [address] [place] [address]- [place] Name: Derik Gaiens MD Position: [facility] Renal MD Member Role: Lifetime Consulting Physician Address: Address: [address] [facility] [address] [facility] [address] [facility] [place] [address]- [place] Name: Jazmin Florez RN Position: [facility] RN Supv Member Role: Primary Care Nurse Name: Kiana Castelan Position: [facility] Outreach Member Role: Lifetime Consulting Physician Name: Bayron Brandt DO Position: [facility] Renal MD Member Role: Lifetime Consulting Physician Address: Address: [address] [facility] [address] [facility] [place] [address]- [place] Name: Amie Caldwell PharmD Position: [facility] Associate Professional Member Role: Lifetime Consulting Provider Address: Address: [address] [place] [address]- [place] Name: Eric Garcia RN Position: [facility] RN Member Role: Primary Care Nurse Name: Jaclyn Schulte RN Position: [facility] RN Member Role: Primary Care Nurse Name: Kavon Liu MD Position: Reference Physician Member Role: Lifetime Consulting Physician Address: Address: [address] [facility] [address] [facility] [place] [address]- Care Team Related Persons Name: DANA PERALES Address: home [address] [place] [address] Name: BO PERALES Address: home [address] [place] [address] Name: DANA BALTAZAR Address: home [address] [place] [address] Name: NALDO AVALOS Address: home [address] [place] [address] Name: NALDO BARNARD Address: home [address] [place] [address]
--- OUTSIDE RECORDS SUMMARY | 2024-06-17 06:02 | XMS_ITS | Continuity of Care Document ---
Author Organization [facility] Address [address] [place] [address]- Care Team Providers Care Editor Sound Name Role Phone Maritza CABEZAS, Bailey Goss Primary Care Physic pierre Encounter [facility] Date(s): 09/17/22 - 10/17/22 [facility] [address] [place], [place] [address] Attending Physician: AdmMarie pizano Admitting Physician: Admtr, Marie Referring Physician: Admtr, Ar8 Allergies, Adverse Reactions, Alerts No Known Allergies Immunizations Given and Recorded Vaccine Date Status Refusal Reason SARS-CoV-2 mRNA ([id number]) vax 10/18/21 Given influenza virus vaccine, inactivated [...] Given 1Result Comment: [facility]: [id number] 2Admin Note: By Dr Granado 3Admin Note: Dr Granado 4Admin Note: [facility] 5Result Comment: Lot [id number]) [id number] 6Admin Note: dr hall 7Result Comment: [employer] [id number] L287x 27feblo Medications amLODIPine 2.5 mg oral tablet 2.5 mg, 1, tablet, By Mouth, Daily, # 90 tablet, Refills 3, Tot. Refills 3, Maintenance, 10/03/22 15:00:00 EST, Route to Pharmacy Electronically, [facility]/pharmacy #[id number], Partial fill upon patient requestif the prescription is for a schedule II opioid sandip... Start Date: 10/03/22 Status: Ordered Aricept 5 mg oral tablet 5 mg, 1, tablet, By Mouth, Daily at bedtime, For memory loss, # 90 tablet, Refills 3, Tot. Refills 3, Maintenance, 08/17/22 17:19:00 EST, Route to Pharmacy Electronically, [facility]/pharmacy #[id number], Partialfill upon patient request if the prescription is fo... Start Date: 08/17/22 Status: Ordered aspirin 81 mg oral delayed release tablet = 81 mg, By Mouth, Daily, # 30 tablet, 0 Refills, Maintenance, 11/10/21 15:20:00 EST, EC Tablet, [facility]/pharmacy #[id number], Partial fill upon patient request if [...] tablet, 1 Refills, Maintenance, 04/20/22 13:02:00 EDT, [facility]/pharmacy #0693, 1 tablet By Mouth Every 24 [...] Stop 11/05/22 10:20:00EST, 11/10/21 10:20:00 EST, Tablet, [facility]/pharmacy #[id number], 175, cm, 10/27/21 13:06:00 EST, Height, [...] each, 8 Refills, Maintenance, 04/17/22 12:47:00 EDT, [facility]/pharmacy #[id number], Partial fill upon patient request if the prescription is for... Start Date: 04/17/22 Stop Date: 01/12/23 Status: Ordered Pen [place], 31 G x 5 mm BD Ultra [...] Replace Required Details, Route to Pharmacy Electronically, [facility]/pharmacy #[id number], 175, cm, 02/06/22 16:03:00 EDT... Start [...] 5 Refills, Maintenance, 02/02/22 10:33:00 EDT, Solution, [facility]/pharmacy #[id number], Partial fill upon patient request if [...] Care team information Care Team Personnel Name: Emeli Nuzhat Position: [facility] Outreach Member Role: Lifetime Consulting Physician Name: Maritza ACBEZAS, Bailey Goss Position: [facility] Primary Care Physician Member Role: PCP Address: Address: [address] [place] [address]- [place] Name: Derik Gaines MD Position: [facility] Renal MD Member Role: Lifetime Consulting Physician Address: Address: [address] [facility] [address] [facility] [place] [address]- [place] Name: Jazmin Florez RN Position: [facility] RN Supv Member Role: Primary Care Nurse Name: Kiana Castelan Position: [facility] Outreach Member Role: Lifetime Consulting Physician Name: Bayron Brandt DO Position: [facility] Renal MD Member Role: Lifetime Consulting Physician Address: Address: [address] [facility] [address] [facility] [place] [address]- [place] Name: Amie Caldwell PharmD Position: [facility] Associate Professional Member Role: Lifetime Consulting Provider Address: Address: [address] [facility] [place] [address]- [place] Name: Eric Garcia RN Position: [facility] RN Member Role: Primary Care Nurse Name: Jaclyn Schulte RN Position: [facility] RN Member Role: Primary Care Nurse Name: Kavon Liu MD Position: Reference Physician Member Role: Lifetime Consulting Physician Address: Address: [address] [place] [address] [address] [facility] [place] [address]- Care Team Related Persons Name: DANA PERALES Address: home [address] [place] [address] Name: BO PERALES Address: home [address] [place] [address] Name: DANA BALTAZAR Address: home [address] [place] [address] Name: NALDO AVALOS Address: home [address] [place] [address] Name: NALDO BARNARD Address: home [address] [place] [address]
--- OUTSIDE RECORDS SUMMARY | 2024-06-17 06:02 | XMS_ITS | Continuity of Care Document ---
Author Organization [facility] Address [address] [place] [address]- Care Team Providers Care Cereal Maker Name Role Phone Maritza CABEZAS, Bailey Goss Primary Care Physic pierre [facility]counter [facility] Date(s): 12/06/21 - 01/05/22 [facility] [address] [place], [place] [address] Attending Physician: AdmMarie pizano Admitting Physician: AdmtrMarie Referring Physician: Admtr, Ar8 Allergies, Adverse Reactions, Alerts No Known Allergies Immunizations Given and Recorded Vaccine Date Status Refusal Reason SARS-CoV-2 mRNA (gjdwesy-nado-vglqm) vax 10/18/21 Given influenza virus vaccine, inactivated [...] 23-valent vaccine 7 05/28/09 Given 1Result Comment: [facility]: 47355-204-38 2Admin Note: By Dr Granado 3Admin Note: Dr Granado 4Admin Note: [facility] 5Result Comment: Lot [id number]) [id number] 6Admin Note: dr hall 7Result Comment: [employer] [id number] L287x 27feblo Medications abacavir 300 mg oral [...] tablet, 0 Refills, Maintenance, 12/20/21 15:57:00 EDT, [facility]/pharmacy #[id number], 1 tablet By Mouth Every 24 hours,x90 days, 175, cm, 12/06/21 8:15:00 EDT, Height, 78.5, kg, 10/10/21 0:43:00 EST, Dry Weight Start Date: 12/20/21 Stop Date: 03/20/22 Status: Ordered Crestor 40 mg oral tablet 1 tablet = 40 mg, By Mouth, Daily, for 90 days, # 90 tablet, 3 Refills, Hard Stop 11/05/22 10:20:00EST, 11/10/21 10:20:00 EST, Tablet, [facility]/pharmacy #[id number], 175, cm, 10/27/21 13:06:00 EST, [...] Refills, Maintenance, 11/10/21 15:20:00 EST, Tablet, [facility]/pharmacy #0693, Partial fill upon patient request if the prescription is for a schedule II opioid drug., 175, cm, 10/27/21 13:06:00 EST, Height... Start Date: 11/10/21 Status: Ordered metoprolol 50 mg oral tablet 50 mg, 1, tablet, By Mouth, 2 times a day, # 180 tablet, Refills 0, Tot. Refills 0, Maintenance, 12/20/21 15:57:00 EDT, Route to Pharmacy Electronically, [facility]/pharmacy #0693, Partial fill upon patientrequest if [...] 3 each, 5 Refills,Maintenance, 10/19/21 12:47:00 EST, [facility]... Start Date: 10/19/21 Stop Date: 04/17/22 Status: Ordered Pen [place], 31 G x 5 mm BD Ultra [...] Required Details, Route to Pharmacy Electronically, [facility]/pharmacy #[id number], 175, cm, 12/06/21 8:15:00 EDT,... Start Date: 12/20/21 Status: Ordered Testopel = 300 mg, Subcutaneous Infusion, Every 3 months, 0 Refills, Maintenance, 03/26/15 23:08:01 Start Date: 03/26/15 Status: Ordered Tresiba FlexTouch 200 units/mL subcutaneous solution See Instructions, Take 28 units daily at lunch. E11.65, # 18 mL, 10 Refills, Maintenance, 03/31/21 10:22:00 EDT, [facility]/pharmacy #0693, 170, cm, 03/20/21 9:07:00 EDT, Height, 92, kg, 09/14/19 14:18:00 EST, Dry Weight Start Date: 03/31/21 Status: Ordered Trulicity Pen 3 mg/0.5 mL subcutaneous solution 0.5 mL = 3 mg, Subcutaneous Injection, Every week, Take 3mg once weekly. E11.65., # 2 mL, 5 Refills, Maintenance, 10/26/21 16:50:00 EST, Solution, [facility]/pharmacy #0693, Partial fill upon patient request [...]
--- OUTSIDE RECORDS SUMMARY | 2024-06-17 06:02 | XMS_ITS | Continuity of Care Document ---
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 Name Role Phone Maritza CABEZAS, Bailey Goss Primary Care Physic pierre Encounter [facility] [id number] Date(s): 02/06/22 - 03/08/22 [facility] [address] [place] [address]- Attending Physician: Marie Ferrer Admitting Physician: AdmMarie pizano Referring Physician: Marie Ferrer Allergies, Adverse Reactions, Alerts No Known Allergies Immunizations Given and Recorded Vaccine Date Status Refusal Reason SARS-CoV-2 mRNA ([id number]) vax 10/18/21 Given influenza virus vaccine, inactivated [...] 23-valent vaccine 7 05/28/09 Given 1Result Comment: [facility]: [id number] 2Admin Note: By Dr Granado 3Admin Note: Dr Granado 4Admin Note: [facility] 5Result Comment: Lot [id number] 6Admin Note: dr hall 7Result Comment: [employer] [id number] L287x 27feblo Medications abacavir 300 mg oral [...] 11/05/22 10:20:00EST, 11/10/21 10:20:00 EST, Tablet, [facility]/pharmacy #[id number], 175, cm, 10/27/21 13:06:00 EST, [...] Refills, Maintenance, 11/10/21 15:20:00 EST, Tablet, [facility]/pharmacy #[id number], Partial fill upon patient request if the prescription is for a schedule II opioid drug., 175, cm, 10/27/21 13:06:00 EST, Height... Start Date: 11/10/21 Status: Ordered metoprolol 50 mg oral tablet 50 mg, 1, tablet, By Mouth, 2 times a day, # 180 tablet, Refills 0, Tot. Refills 0, Maintenance, 12/20/21 15:57:00 EDT, Route to Pharmacy Electronically, [facility]/pharmacy #[id number], Partial fill upon patientrequest if [...] 8 Refills, Maintenance, 04/17/22 12:47:00 EDT, [facility]/pharmacy #[id number], Partial fill upon patient request if the prescription is for... Start Date: 04/17/22 Stop Date: 01/12/23 Status: Ordered Pen [place], 31 G x 5 mm BD Ultra [...] Required Details, Route to Pharmacy Electronically, [facility]/pharmacy #[id number], 175, cm, 12/06/21 8:15:00 EDT,... Start Date: 12/20/21 Status: Ordered Testopel = 300 mg, Subcutaneous Infusion, Every 3 months, 0 Refills, Maintenance, 03/26/15 23:08:01 Start Date: 03/26/15 Status: Ordered Tresiba FlexTouch 200 units/mL subcutaneous solution See Instructions, Take 28 units daily at lunch. E11.65, # 18 mL, 10 Refills, Maintenance, 03/31/21 10:22:00 EDT, [facility]/pharmacy #[id number], 170, cm, 03/20/21 9:07:00 EDT, Height, 92, kg, 09/14/19 14:18:00 EST, Dry Weight Start Date: 03/31/21 Status: Ordered Trulicity Pen 3 mg/0.5 mL subcutaneous solution 0.5 mL = 3 mg, Subcutaneous Injection, Every week, Take 3mg once weekly. E11.65., # 2 mL, 5 Refills, Maintenance, 02/02/22 10:33:00 EDT, Solution, [facility]/pharmacy #[id number], Partial fill upon patient [...]
--- OUTSIDE RECORDS SUMMARY | 2024-06-17 06:02 | XMS_ITS | Continuity of Care Document ---
Author Organization [facility] Address [address] [place] [address]- Care Team Providers Care Technical Information Specialist Name Role Phone Maritza CABEZAS, Bailey Goss Primary Care Physic pierre Encounter [facility] Date(s): 10/25/21 - 11/01/21 [facility] [address] [place] [address]- Attending Physician: Bailey Salas MD Allergies, Adverse Reactions, Alerts No Known Allergies Immunizations Given and Recorded Vaccine Date Status Refusal Reason SARS-CoV-2 mRNA ([id number]-[id number]) vax 10/18/21 Given influenza virus vaccine, inactivated [...] 23-valent vaccine 7 05/28/09 Given 1Result Comment: [facility]: [id number] 2Admin Note: By Dr Granado 3Admin Note: Dr Granado 4Admin Note: [facility] 5Result Comment: Lot [id number] 6Admin Note: dr hall 7Result Comment: [employer] [id number] L287x 27feblo Medications abacavir 300 mg oral tablet 2 tablet = 600 mg, By Mouth, Daily, # 60 tablet, 0 Refills, Maintenance, 10/19/21 12:09:00 EST, Tablet, [facility], Partial fill upon patient request if the prescription is for a schedule II opioid drug., 175, cm, 10/19/21 8:07:00 EST, H... Start Date: 10/19/21 Status: Ordered amiodarone 200 mg oral tablet [...] Daily, # 30 tablet, 0 Refills, Maintenance, 10/19/21 12:07:00 EST, EC Tablet, [facility], Partial fill upon patient request if the prescription is for a schedule II opioid drug., 175, cm, 10/19/21 8:07:00 EST, Height,... Start Date: 10/19/21 Status: Ordered BD UF PEN NEEDLE 4MM [...] tablet, 1 Refills, Maintenance, 04/13/21 15:06:00 EDT, [facility]/pharmacy #[id number], 90, 1 tablet By Mouth Every 24 hours, 170, cm, 03/20/21 9:07:00 EDT, Height, 92, kg, 09/14/19 14:18:00 EST, Dry Weight Start Date: 04/13/21 Status: Ordered Crestor 40 mg oral tablet 1 tablet = 40 mg, By Mouth, Daily, # 90 tablet, 3 Refills, Maintenance, 08/30/20 8:19:00 EST, Tablet, [facility]/pharmacy #[id number], 170, cm, 03/29/20 10:57:00 EDT, Height, 92, kg, 09/14/19 14:18:00 EST, Dry Weight Start Date: 08/30/20 Stop Date: 08/25/21 Status: Ordered dolutegravir 50 mg oral tablet 1 tablet = 50 mg, By Mouth, Daily, # 30 tablet, 0 Refills, Maintenance, 10/19/21 12:09:00 EST, Tablet, [facility], Partial fill upon patient request if the prescription is for a schedule II opioid drug., 175, cm, 10/19/21 8:07:00 EST, He... Start Date: 10/19/21 Status: Ordered Freestyle Lite Lancets See Instructions, [...] Daily, # 30 tablet, 0 Refills, Maintenance, 10/19/21 12:13:00 EST, Tablet, [facility], Partial fill upon patient request if the prescription is for a schedule II opioid drug., 175, cm, 10/19/21 8:07:00 EST, H... Start Date: 10/19/21 Status: Ordered metoprolol 50 mg oral tablet 50 mg, 1, tablet, By Mouth, 2 times a day, # 60 tablet, Refills 0, Tot. Refills 0, Maintenance, 10/19/21 12:08:00 EST, Route to Pharmacy Electronically, [facility], Partial fill upon patient request if the prescription is for a schedule... Start Date: 10/19/21 Status: Ordered NovoLOG FlexPen 100 units/mL subcutaneous solution See Instructions, Subcutaneous Injection, 3 times daily before meals; 100-150 10 units; 151-200 12 units; 201-250 14 units; 251-300 16 units; 301-350 18 units; Over 350 20 units, # 3 each, 5 Refills,Maintenance, 10/19/21 12:47:00 EST, [facility]... Start Date: 10/19/21 Stop Date: 04/17/22 Status: Ordered Pen [place], 31 G x 5 mm BD Ultra [...] TAKE 1 CAPSULE BY MOUTH EVERY DAY, [facility]/pharmacy #[id number] Start Date: 04/06/19 Status: Ordered Testopel = 300 mg, Subcutaneous Infusion, Every 3 months, 0 Refills, Maintenance, 03/26/15 23:08:01 Start Date: 03/26/15 Status: Ordered Tresiba FlexTouch 200 units/mL subcutaneous solution See Instructions, Take 35 units daily at lunch. E11.65, # 18 mL, 10 Refills, Maintenance, 03/31/21 10:22:00 EDT, [facility]/pharmacy #[id number], 170, cm, 03/20/21 9:07:00 EDT, Height, 92, kg, 09/14/19 14:18:00 EST, Dry Weight Start Date: 03/31/21 Status: Ordered Trulicity Pen 3 mg/0.5 mL subcutaneous solution 0.5 mL = 3 mg, Subcutaneous Injection, Every week, Take 3mg once weekly. E11.65., # 2 mL, 5 Refills, Maintenance, 10/26/21 16:50:00 EST, Solution, [facility]/pharmacy #[id number], Partial fill upon patient request if the prescription is for a schedule II opioid drWilder.. Start Date: 10/26/21 Status: Ordered warfarin 1 mg oral tablet See Instructions, Take 4 tablets (4mg tonight), then as directed based on daily INR, # 120 tablet, 0 Refills, Maintenance, 10/19/21 12:14:00 EST, Tablet, [facility], Partial fill upon patient request if the prescription is for a schedule... Start Date: 10/19/21 Status: Ordered Problem List Condition Effective Dates [...] oldest [Reference Range]: 1 Height 175 cm (10/25/21 11:15 AM) Social History Social History Type Response Smoking Status Former smoker, quit more than 30 days ago entered on: 12/29/18 Sex
--- OUTSIDE RECORDS SUMMARY | 2024-06-17 06:02 | XMS_ITS | Continuity of Care Document ---
Author Organization [facility] Address [address] [address]- Care Team Providers Care Director Of Environmental Services Name Role Phone Maritza CABEZAS, Bailey Goss Primary Care Physic pierre Encounter [facility] Date(s): 11/16/22 - 12/16/22 [facility] [address] [address]- Attending Physician: AdmMarie pizano Admitting Physician: Admtr, Ar8 Referring Physician: Admtr, Ar8 Allergies, Adverse Reactions, Alerts No Known Allergies Immunizations Given and Recorded Vaccine Date Status Refusal Reason SARS-CoV-2 mRNA ([id number]-[id number]-[id number]) vax 10/18/21 Given influenza virus vaccine, inactivated [...] 23-valent vaccine 7 05/28/09 Given 1Result Comment: [facility]: [id number] 2Admin Note: By Dr Granado 3Admin Note: Dr Granado 4Admin Note: [facility] 5Result Comment: Lot [id number] 6Admin Note: dr hall 7Result Comment: [employer] [id number] L287x 27feblo Medications amLODIPine 2.5 mg oral tablet 2.5 mg, 1, tablet, By Mouth, Daily, # 90 tablet, Refills 3, Tot. Refills 3, Maintenance, 10/03/22 15:00:00 EST, Route to Pharmacy Electronically, [facility]/pharmacy #[id number], Partial fill upon patient requestif the prescription is for a schedule II opioid sandip... Start Date: 10/03/22 Status: Ordered Aricept 5 mg oral tablet 5 mg, 1, tablet, By Mouth, Daily at bedtime, For memory loss, # 90 tablet, Refills 3, Tot. Refills 3, Maintenance, 08/17/22 17:19:00 EST, Route to Pharmacy Electronically, [facility]/pharmacy #[id number], Partialfill upon patient request [...] tablet, 1 Refills, Maintenance, 04/20/22 13:02:00 EDT, [facility]/pharmacy #[id number], 1 tablet By Mouth [...] each, 8 Refills, Maintenance, 04/17/22 12:47:00 EDT, [facility]/pharmacy #[id number], Partial fill upon patient request if the prescription is for... Start Date: 04/17/22 Stop Date: 01/12/23 Status: Ordered Pen [place], 31 G x 5 mm BD Ultra [...] Electronically, [facility]/pharmacy #[id number], 175, cm, 10/03/22 14:39:00 EST... Start Date: 10/29/22 Status: Ordered Testopel = 300 mg, Subcutaneous Infusion, Every 3 months, 0 Refills, Maintenance, 03/26/15 23:08:01 Start Date: 03/26/15 Status: Ordered Tresiba FlexTouch 200 units/mL subcutaneous solution See Instructions, Take 22 units daily at lunch. E11.65, # 9 mL, 10 Refills, Maintenance, 05/28/22 13:10:00 EDT, [facility]/pharmacy #[id number], 175, cm, 02/06/22 16:03:00 EDT, Height, 78.5, kg, 10/10/21 0:43:00 EST, Dry Weight Start Date: 05/28/22 Status: Ordered Trulicity Pen 3 mg/0.5 mL subcutaneous solution 0.5 mL = 3 mg, Subcutaneous Injection, Every week, Take 3mg once weekly. E11.65., # 2 mL, 5 Refills, Maintenance, 10/18/22 16:22:00 EST, Solution, [facility], Partial fill upon patient request [...] Care Team Personnel Name: Nuzhat Sainz Position: [facility] Outreach Member Role: Lifetime Consulting Physician Name: Maritza CABEZAS, Bailey Goss Position: [facility] Primary Care Physician Member Role: PCP Address: Address: [address] [place] [address]- Name: Derik Gaines MD Position: [facility] Renal MD Member Role: Lifetime Consulting Physician Address: Address: [address] [place] [address] [address] [facility] [place] [address]- Name: Jazmin Florez RN Position: [facility] RN Supv Member Role: Primary Care Nurse Name: Kiana Castelan Position: S Outreach Member Role: Lifetime Consulting Physician Name: Bayron Brandt DO Position: [facility] Renal MD Member Role: Lifetime Consulting Physician Address: Address: [address] [facility] [address] [facility] [address] [facility] [place] [address]- [place] Name: Amie Caldwell PharmD Position: [facility] Associate Professional Member Role: Lifetime Consulting Provider Address: Address: [address] [facility] [place] [address]- [place] Name: Eric Garcia RN Position: [facility] RN Member Role: Primary Care Nurse Name: Jaclyn Schulte RN Position: [facility] RN Member Role: Primary Care Nurse Name: Kavon Liu MD Position: Reference Physician Member Role: Lifetime Consulting Physician Address: Address: [address] [place] [address] [address] [facility] [place] [address]- Care Team Related Persons Name: DANA PERALES Address: home [address] [place] [address] Name: BO PERALES Address: home [address] [place] [address] Name: DANA BALTAZAR Address: home [address] [place] [address] Name: NALDO AVALOS Address: home [address] [place] [address] Name: NALDO BARNARD Address: home [address] [place] [address]
--- OUTSIDE RECORDS SUMMARY | 2024-06-17 06:02 | XMS_ITS | Continuity of Care Document ---
Author Organization [facility] ter Address [address] [place] [id number]- Care Team Providers Care Senior Formulation Scientist Name Role Phone Brandt Bayron WEATHERS Primary Care Physician Encounter [facility] Date(s): 09/30/23 - 10/02/[address] [id number] Encounter Diagnosis HIV positive, asymptomatic(Final) - 09/30/23 Medication non-compliance due to excessive pill burden(Final) - 09/30/23 Discharge Disposition: A-Transfer VNA/Home Health Attending Physician: Travis Cote MD Admitting Physician: Vance Gonzalez MD Referring Physician: Not on Staff, Referring MD Allergies, Adverse Reactions, Alerts No Known Allergies Immunizations Given and Recorded Vaccine Date Status Refusal Reason tetanus/diphtheria/pertussis, acel(Tdap) 03/28/23 Given pneumococcal 23-valent vaccine 03/28/23 Given pneumococcal 23-valent vaccine 1 05/28/09 Given SARS-CoV-2 mRNA ([id number]) vax 10/18/21 Given influenza virus vaccine, inactivated [...] (oldterm) 06/13/19 Recorde d pneumococcal 13-valent vaccine 1/25/17 Given Fluvirin (oldterm) 05/23/11 Given Tet/diphth/pertussis, acel (oldterm) 05/23/11 Give n FluLaval (oldterm) 7 06/09/10 Given 1Result Comment: [employer] [id number] 2Result Comment: [facility]: 48352-848-39 3Admin Note: [address] Dr Granado 4Admin Note: Dr Granado 5Admin Note: [facility] 6Result Comment: Lot [id number] ([id number]) [id number] 7Admin Note: dr hall Medications Alcohol Pads [...] 0 Refills, Maintenance, 10/03/23 1:25:00 EST, Tablet, [facility]/pharmacy #[id number], Partial fill upon patient request if the prescription is for a schedule II opioid drug., 172, cm, 10/02/23 7:02:00 E... Start Date: 10/03/23 Status: Ordered amLODIPine 5 mg oral tablet 2.5 mg, Tablet, By Mouth, Hold for: SBP <100 and HR < 60, 10/02/23 9:00:00 EST Start Date: 10/02/23 Stop Date: 10/02/23 Status: Completed Apnea Rx Apnea Rx, See Instructions, # [...] Refills, Maintenance, 10/03/23 1:25:00 EST, CR Tablet, [facility]/pharmacy #[id number], Partial fill upon patient request if the prescription is fora schedule II opioid drug., 172, cm, 10/02/23 7:02:... Start Date: 10/03/23 Status: Ordered buPROPion 150 mg/24 hours (XL) oral tablet, extended release 1 tablet = 150 mg, By Mouth, Daily in AM, blister pack, # 90 tablet, 0 Refills, Maintenance, 10/03/23 1:26:00 EST, XL Tablet, [facility]/pharmacy #[id number], Partial fill upon patient request if [...] 10/03/23 1:26:00 EST, Route to Pharmacy Electronically, [facility]/pharmacy #[id number], Partial fill upon patient request if the prescription is for a... Start Date: 10/03/23 Status: Ordered finasteride 5 mg oral tablet 1 tablet = 5 mg, By Mouth, Daily, blister pack, # 90 tablet, 0 Refills, Maintenance, 10/03/23 1:27:00 EST, Tablet, [facility]/pharmacy #[id number], Partial fill upon patient request if [...] Dry Weight Start Date: 10/03/23 Status: Ordered gabapentin 100 mg oral capsule 100 mg, Capsule, By Mouth, 10/02/23 9:00:00 EST Start Date: 10/02/23 Stop Date: 10/02/23 Status: Completed glucose 4 gm oral tablet, chewable 4 [...] 10/03/23 1:27:00 EST, [id number] Partial fill upon patient request if the prescription is for a schedule I... Start Date: 10/03/23 Status: Ordered metoprolol succinate 200 mg oral capsule, extended release 1 capsule = 200 mg, By Mouth, Daily, blister pack, # 90 capsule, 0 Refills, Maintenance, 10/03/23 1:28:00 EST, ER Capsule, [facility]/pharmacy #[id number], Partial fill upon patient request if the prescription isfor a schedule II opioid drug., 172, cm, 10/02/23 7... Start Date: 10/03/23 Status: Ordered Metoprolol Succinate ER 100 mg oral tablet, extended release 200 mg, XL Tablet, By Mouth, 10/02/23 9:00:00 EST Start Date: 10/02/23 Stop Date: 10/02/23 Status: Completed Myrbetriq 50 mg oral tablet, extended release 1 tablet = 50 mg, By Mouth, Daily, blister pack do not crush or chew, # 90 tablet, 0 Refills, Maintenance, 10/03/23 1:28:00 EST, ER Tablet, [facility]/pharmacy #[id number], Partial fill upon patient request if [...] 10/03/23 Stop Date: 11/02/23 Status: Ordered Pen [place], 31 G x 5 mm BD Ultra [...] 0 Refills, Maintenance, 10/03/23 1:28:00 EST, Tablet, [facility]/pharmacy #[id number], Partial fill upon patient request if the prescription is for a schedule II opioid drug., 172, cm, 10/02/23 7:02:00... Start Date: 10/03/23 Status: Ordered tamsulosin 0.4 mg oral capsule 0.4 mg, 1, capsule, By Mouth, Daily, blister pack, # 90 capsule, Refills 0, Tot. Refills 0, Maintenance, 10/03/23 1:29:00 EST, Route to Pharmacy Electronically, [facility]/pharmacy #[id number], Partial fill upon patient request if [...] 0 Refills, Maintenance, 10/03/23 1:27:00 EST, Solution, [facility]/pharmacy #[id number], Partial fill upon patient request if the prescription is for a schedule II opioid drug., 172, cm, 01... Start Date: 10/03/23 Status: Ordered Problem List [...] Exam Date Time Procedure Performing Provider Status 09/29/23 11:58 PM Chest 2 Views Frontal and Lat Karina Robertson (Verified) Notes: (Chest 2 Views Frontal and Lat) Reason For Exam: Chest Pain;Other: RESULT: Chest 2 Views Frontal and Lat Examination: Chest performed on 09/29/2023. History: Indigestion and heartburn. Chest pain. Findings: Frontal and lateral views of the chest are compared to a prior study dated 12/27/2022. Sternotomy wires are intact. The cardiac and mediastinal silhouettes are within normal limits. The lungs are clear. The osseous and soft tissue structures are unremarkable. Impression: There is no acute cardiopulmonary disease. WSN: [id number] Ordering Physician: Mario Parikh Dictated By: Jumana Ferrera MD Dictated Date/Time: 09/30/23 8:33 am Reviewed By: Jumana Ferrera MD Signed By: Jumana Ferrera MD Signed Date/Time: 09/30/23 8:33 am Transcribed By: ALEXUS Transcribed Date/Time: 09/30/23 8:32 am Vital Signs Most recent to oldest [Reference Range]: 1 2 3 Height 172 cm (10/02/23 7:02 AM) 172 cm (10/01/23 8:09 AM) 172 cm (10/01/23 4:05 AM) Weight 76.9 kg (1/22/24 8:24 AM) 76.9 kg (09/30/23 8:24 AM) 76.9 kg (09/30/23 8:24 AM) Oxygen Saturation [94-100 %] 98 % (10/02/23 12:00 PM) 98 % (10/02/23 7:02 AM) 97 % (10/02/23 2:00 AM) Pulse Rate [55-90 bpm] 70 bpm (10/02/23 12:00 PM) 73 bpm (10/02/23 9:44 AM) 73 bpm (10/02/23 7:02 AM) Body Mass Index [18.5-24.99 kg/m2] 25.99 kg/m2 *H* (09/30/23 8:24 AM) Blood Pressure [90-138/55-84 mm Hg] 119/67mm Hg (10/02/23 12:00 PM) 129/90mm Hg (10/02/23 9:44 AM) 129/90mm Hg (10/02/23 9:43 AM) Respiratory Rate [16-30 br/min] 15 br/min *L* (10/02/23 12:00 PM) 20 br/min (10/02/23 10:43 AM) 18 br/min (10/02/23 9:43 AM) Temperature [96.8-100.4 DegF] 97.3 DegF (10/02/23 12:00 PM) 97.5 DegF (10/02/23 7:02 AM) 97.7 DegF (10/02/23 2:00 AM) Mode of Delivery (Oxygen) Room air (10/02/23 12:00 PM) Room air (10/02/23 7:02 AM) Room air (10/02/23 2:00 AM) Blood pressure sites Arm, right (10/02/23 12:00 PM) Arm, left (10/02/23 7:02 AM) Arm, left (10/02/23 2:00 AM) Temperature Route Oral (10/02/23 12:00 PM) Oral (10/02/23 7:02 AM) Oral (10/02/23 2:00 AM) Dry Weight 76.9 kg (09/30/23 8:24 AM) Weight Obtained Via Bed scale (09/30/23 8:24 AM) Social History Social History Type Response Smoking Status Former smoker, quit more than 30 days ago entered on: 12/29/18 Sex Admission evaluation note * Rhoda CABEZAS, Kelly: PERFORM, MODIFY, MODIFY, MODIFY, MODIFY Event Display: Admission Note Authored Date: [id number] Patient: ??MILAGROS PERALES ? Age:??73 Years?Sex:??Male?:??1950?? Chief Complaint/Reason for Consultation hyperglycemia History of Present Illness 73 year old male with PMH HTN, DM2, HIV (almost undetectable on last labs 08/2023) who presents with concern of general malaise and weakness in the setting of not being able to take his medications due to access x3 weeks,??int nausea/reflux attributed to??in between meals, ongoing memory concerns, hit right shoulder recently but there was no overt fall. Perseverates consistently on medication issues??primarily issues with getting all his meds filled consistently at pharmacy and with financial concerns given he wants blister packs to help with med mgmt given his ongoing memory issues but says it will cost $60 instead of $0 copay normally with individual meds with his insurance. He is pretty sure he??has??not missed any doses of q2 monthly injection for HIV cabenuva but reports he has trouble getting his other outpatient meds and cannot recall his full meds even when read to him for med rec-notes??a lot of them sound unfamiliar. Discussed with him starting??lantus/lispro for noted hyperglycemia, he is in agreement and notes issues with getting insulins (recalls having SSI at home but does not recall that he is supposed to beon a long acting insulin)??and diabetes supplies filled consistently as well but does not recall having??sugars higher than 120s at home but also has??not been able to get consistent readings. Endorses nausea/reflux nicola if hungry but denies vomiting. Denies fevers/chills/SOB/CP/abd pain. Review of Systems as??per HPI?? Objective Vital Signs?? Temperature: 98.1 DegF (09/30/23 08:24:00) Temperature Route: Oral (09/30/23 08:24:00) Pulse Rate:??99 bpm??High (09/30/23 08:24:00) Respiratory Rate: 18 br/min (09/30/23 08:24:00) Systolic Blood Pressure:??149 mm Hg??High (09/30/23 08:24:00) Diastolic Blood Pressure:??89 mm Hg??High (09/30/23 08:24:00) Blood pressure sites: Arm, left (09/30/23 08:24:00) Mean Arterial Pressure: 109 mm Hg (09/30/23 08:24:00) Pulse Pressure: 60 mm Hg (09/30/23 08:24:00) Oxygen Saturation: 95 % (09/30/23 08:24:00) Mode of Delivery (Oxygen): Room air (09/30/23 08:24:00) Early Warning Score:??10??Critical (09/30/23 08:32:49) ? Physical Exam Vital Signs (24 hrs) Last Charted?? Minimum?? Maximum?? Temp?? I have read the above and understand it.?? 09/30/2023 08:24?? I have read the above and understand it.?? 09/30/2023 07:24 ?? I have read the above and understand it.?? 09/30/2023 07:24?? Resp Rate?? 18?? 09/30/2023 08:24?? L??15?? 09/30/2023 04:33 ?? 18?? 09/29/2023 23:06?? SBP?? H??149?? 09/30/2023 08:24?? 126?? 09/30/2023 00:04 ?? H??174?? 09/29/2023 23:06?? DBP?? H??89?? 09/30/2023 08:24?? H??87?? 09/30/2023 01:01 ?? H??121?? 09/30/2023 03:50? General Appearance: The patient is a??male and in NAD. Some changes like hollowing of cheeks noted suggestive of lipodystrophy(which is c/w documented pmh). Eyes: EOMI. No scleral icterus. ENT: ??MM moist. Dentition intact. Cardiovascular: RRR S1 and S2 heard with no M/R/G. Respiratory: ??Breath sounds clear to auscultation bilaterally. stable on room air at time of assessment. GI: Soft. Nontender and nondistended. Normal bowel sounds present throughout abdomen. ??No rebound tenderness or other findings suggestive of an acute abdomen.?? MS: ??No BLE pitting edema. Skin:??No rashes seen on extremities. Neuro: ??No slurred speech. Moving all extremities spontaneously. Seen ambulating around room with normal gait. Psych: Alert and oriented x3. Appropriate and pleasant. ?? Labs?notable for leukocytosis 17, hb 18.1/hct 50.9-c/w prior, plt ct wnl, diff +elev neutrophils-c/w prior, pseudohyponatremia 2/2 elevated glucose, Bun 45/Cr 1.5 c/w known ongoing renal dysfunction, unremarkable LFTs, trop 62->62 VS?afebrile, stable on room air, moderate htn, mild tachycardia ?? Assessment/Plan Diagnoses HIV positive, asymptomatic ??(Z21) Hyperglycemia ??(R73.9) Medication non-compliance due to excessive pill burden ??(Z91.148) ?? Assessment:??73 year old male with PMH HTN, DM2, HIV (almost undetectable on last labs 08/2023) whopresents with concern of malaise, weakness x3 weeks in the setting of missed medications related tofinancial/social concerns??found to have hyperglycemia without notable anion gap admitted for further management. of hyperglycemia as well as CM/SW consultations for assistance with social/financial concerns impacting health. ?? Hyperglycemia in the setting of DM2 ??? pt tolerating PO/is without over vomiting and POCs improving and AG not notably elevated so at this time lower concern for HHS or DKA, continue q4h lytes and glucose checks for at least the next day, continue SSI,??given one time dose lantus 8U with improvement ongoing so will dose??as lantus 8U daily-can be adjusted as needed as per oncoming team, patient reports at home / at baseline does not recall taking long acting insulin but does take SSI at home but does not recall details of it and does not recall having POCs above 120s at home but does also note some issues with getting supplies and with getting meter readings intermittently at home ?? Reflux/nausea intermittently without vomiting??- encouraged pt to try light snacks like (diet) gingerale or crackers as tolerated as he notes this normally helps, also put in limited # prn zofran and tums; also ordered prn maalox, prn simethicone ?? Medication issues, memory impairment??- reports ongoing issues with getting all / some medications filled, CM and SW consulted ?? HIV ??? ID consult, of note patient notes gets??cabenuva every 2 months and to his knowledge has not missed any doses, however in the setting of patient reported malaise/medication issues ongoing/memory issues??still a concern it could be related to HIV so will get consultation ?? Hemoconcentration, appears chronic, likely at least in part 2/2 prior testosterone use vs. ?undiagnosed KINGSLEY/other contributing factor??- testopel held, he says he is supposed to be going for therapeutic phlebotomy- defer further mgmt to outpatient team ?? Hypertension - amlodipine, lisinopril (is chronically on it even in setting of known renal dysfunction so will continue), metoprolol ?? CKD??- appears stable, can f/u outpatient ? quality FULL code per discussion with patient on admission diabetic diet vte ppx - lovenox ?? Precepted with Dr. Spence ?? Kelly Duong M.D. ? Histories Allergies Allergies ?(Active and Proposed Allergies Only) NKA? (Severity: Unknown severity, Onset: Unknown) ? 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 Past Surgical History CABG - Coronary artery bypass graft: 10/10/21 Colonoscopy - Due 2023: 09/22/18 Esophagogastroduodenoscopy: 09/10/14 sleep study 2013 cardiac catheterization 2009 testosterone bead implantation left buttock, 2007 colonoscopy 2010 colonoscopy 2012 Appendectomy ? Social History Alcohol Details:??Use: Never. Employment/School Details:??Status: Disabled, Retired. ??Highest education level: Some college. Exercise Details:??Self assessment: Poor condition. ??Regular exercise: No. Home/Environment Details:??Living situation: Home/Independent. ??Lives with: Alone. ??Domestic violence in household: No. Nutrition/Health Details:??Diet: Regular, Low sodium. ??Caffeine intake amount: 2 cups of tea. ??Uses alternative healthcare: no. Sexual Details:??Gender identity: Identifies as male. ??Self described orientation: Straight or heterosexual. ??Preferred pronoun: He/him. Substance Abuse Details:??Use: Never. Tobacco Details:??Use: Former smoker, quit more than 30 days ago. Electronic Cigarette/Vaping Details:??Electronic Cigarette Use: Never. ? Family History Mother: Dementia; Diabetes mellitus type II; Hyperlipidemia; Skin cancer Other: CAD - Coronary artery disease; Diabetes mellitus type II; PVD - Peripheral vascular disease Other: Dementia ? Medications Home Medications Amlodipine (amLODIPine 2.5 mg oral tablet)?1?tab(s)?2.5?Milligram?By Mouth?Daily?TAKE 1 TABLET BY MOUTH EVERY DAY BuPROpion (buPROPion 150 mg/24 hours (XL) oral tablet, extended release)?1?tab(s)?150?Milligram?By Mouth?Daily in AM?TAKE 1 TABLET BY MOUTH EVERY MORNING cabotegravir-rilpivirine (Cabenuva 600/900 intramuscular suspension, extended release)?See Instructions Doxycycline (doxycycline hyclate 100 mg oral tablet)?1?tab(s)?100?[place]igram?By Mouth?Daily?TAKE 1 TABLET BY MOUTH EVERY DAY Finasteride (finasteride 5 mg oral tablet)?1?tab(s)?5?Milligram?By Mouth?Daily?TAKE 1 TABLET BY MOUTH EVERY DAY Lisinopril (lisinopril 20 mg oral tablet)?20?Milligram?1?tablet?By Mouth?Daily Metoprolol (Metoprolol Succinate ER 200 mg oral tablet, extended release)?1?tab(s)?200?Milligram?By Mouth?Daily?TAKE 1 TABLET (200 MG TOTAL) BY MOUTH 1 (ONE) TIME EACH DAY DO NOTCRUSH OR CHEW. mirabegron (Myrbetriq 50 mg oral tablet, extended release)?1?tab(s)?50?[place]igram?By Mouth?Daily?TAKE ONE TABLET BY MOUTH EVERY DAY Tamsulosin (tamsulosin 0.4 mg oral capsule)?0.4?Milligram?1?capsule?By Mouth?Daily?TAKE 1 CAPSULE BY MOUTH EVERY DAY Testosterone (Testopel 75 mg subcutaneous implant)?1?Each?75?Milligram?Subcutaneous Injection?Every 3 months ? Inpatient Medications Medications (23) Active SCHEDULED: (7) Amlodipine 5 mg Tablet (amLODIPine 5 mg oral tablet) ??2.5 mg, By Mouth, Daily Insulin Glargine 100 units/mL Inj (Lantus Inj) ??8 units 0.08 mL, Subcutaneous Injection, Daily in AM Insulin Lispro 100 units/mL Inj (3mL) (Insulin LISPRO Sliding Scale) ??2-10 units, Subcutaneous Injection, 3 times a day before meals Lisinopril 20 mg Tablet (lisinopril 20 mg oral tablet) ??20 mg, By Mouth, Daily Metoprolol 100 mg XL Tablet (Metoprolol Succinate ER 100 mg oral tablet, extended release) ??200 mg, By Mouth, Daily NaCl 0.9% Flush 3ml (NaCL 0.9% Flush) ??3 mL, IV Push, Every 8 hours Tamsulosin 0.4 mg Capsule (tamsulosin 0.4 mg oral capsule) ??0.4 mg, By Mouth, Daily CONTINUOUS: (0) PRN: (16) Acetaminophen 325 mg Tablet (Acetaminophen Tablet) ??650 mg, By Mouth, Every 4 hours Al hydroxide/Mg hydroxide/simethicone 200 mg-200 mg-20 mg/5 mL Susp UD (Maalox Plus Liquid) ??15 mL, By Mouth, 4 times a day Calcium Carbonate 500 mg (Calcium 200 mg) Chewable Tablet (Tums 500 mg oral tablet, chewable) ??500mg 1 tablet, Chew, Every 4 hours Dextromethorphan-Guaifenesin 20 mg-200 mg/10 mL Liqu UD (Robitussin DM Liquid) ??10 mL, By Mouth, Every 4 hours Dextrose Inj Syringe (Dextrose 50% Inj Syringe (25Gm)) ??12.5 Gm, IV Push Slowly, Every 20 minutes Dextrose Inj Syringe (Dextrose 50% Inj Syringe (25Gm)) ??25 Gm, IV Push Slowly, Every 15 minutes Docusate Sodium 100 mg Capsule (Docusate Sodium Capsule) ??100 mg 1 capsule, By Mouth, 2 times a day Glucagon 1 mg Inj (Glucagon Inj) ??1 mg, Intramuscular, Once Glucose 40% Gel (15 Gm) (Glucose Gel) ??15 Gm, By Mouth, Every 20 minutes Glucose 40% Gel (15 Gm) (Glucose Gel) ??30 Gm, By Mouth, Every 20 minutes Melatonin 3 mg Tablet (Melatonin Tablet) ??3 mg, By Mouth, Daily at bedtime NaCl 0.9% Flush 3ml (NaCL 0.9% Flush) ??3 mL, IV Push, Every 8 hours Ondansetron 2mg/mL Inj (2mL Vial) (Zofran Inj) ??4 mg, IV Push, Every 6 hours Polyethylene Glycol 17 Gm Powder (MiraLax Powder) ??17 Gm 1 pack/packet, By Mouth, Daily Senna Tablet ??8.6 mg 1 tablet, By Mouth, 2 times a day Simethicone 80 mg Chewable Tablet (Simethicone Tablet) ??80 mg, Chew, 3 times a day ? Results Recent Labs BLOOD COUNT & DIFF WBC 17.0 k/mm3 (High)?? 09/30/2023 04:21 RBC 5.85 m/mm3 ()?? 09/30/2023 04:21 Hgb 18.1 Gm/dL (High)?? 09/30/2023 04:21 Hct 50.9 % (High)?? 09/30/2023 04:21 MCV 87.0 femtoliters ()?? 09/30/2023 04:21 MCH 30.9 pg ()?? 09/30/2023 04:21 MCHC 35.6 g/dL ()?? 09/30/2023 04:21 Platelet Count 201 k/mm3 ()?? 09/30/2023 04:21 RDW-SD 40.0 femtoliters ()?? 09/30/2023 04:21 MPV 10.0 femtoliters ()?? 09/30/2023 04:21 Nucleated RBC (Automated) 0.0 #/100 WBC'S ()?? 09/30/2023 04:21 Abs. NRBC 0.0 k/mm3 ()?? 09/30/2023 04:21 Abs. Neut 14.5 k/mm3 (High)?? 09/30/2023 04:21 Abs. Lymph 1.1 k/mm3 ()?? 09/30/2023 04:21 Abs. [place] 1.2 k/mm3 ()?? 09/30/2023 04:21 Abs. Eo 0.0 k/mm3 ()?? 09/30/2023 04:21 Abs. Baso 0.0 k/mm3 ()?? 09/30/2023 04:21 Neut % 85.1 % (High)?? 09/30/2023 04:21 Lymph % 6.6 % (Low)?? 09/30/2023 04:21 [place] % 6.8 % ()?? 09/30/2023 04:21 Eos % 0.1 % ()?? 09/30/2023 04:21 Baso % 0.2 % ()?? 09/30/2023 04:21 Imm Gran 1.2 % ()?? 09/30/2023 04:21 Abs. Imm Gran 0.2 k/mm3 ()?? 09/30/2023 04:21 ?? BLOOD GAS pH, Venous 7.35 ()?? 09/30/2023 01:30 ?? CARDIAC High Sensitivity Troponin (HSTnT) 62 ng/L (Critical)?? 09/30/2023 01:30 ?? CHEM GENERAL Sodium 128 mmol/L (Low)?? 09/30/2023 04:21 Potassium 5.1 mmol/L ()?? 09/30/2023 04:21 Chloride 93 mmol/L (Low)?? 09/30/2023 04:21 Bicarbonate Level 18 mmol/L (Low)?? 09/30/2023 04:21 Anion Gap 17 ()?? 09/30/2023 04:21 Glucose Level 567 mg/dL (Critical)?? 09/30/2023 04:21 Glucose, POC 371 mg/dL (High)?? 09/30/2023 06:31 BUN 45 mg/dL (High)?? 09/30/2023 04:21 Creatinine-Blood 1.5 mg/dL (High)?? 09/30/2023 04:21 Estimated GFR Creatinine 48 ML/MIN/1.73 M2 ()?? 09/30/2023 04:21 Calcium 9.7 mg/dL ()?? 09/30/2023 04:21 Protein, Total 7.4 Gm/dL ()?? 09/30/2023 04:21 Albumin 4.4 Gm/dL ()?? 09/30/2023 04:21 AG Ratio 1.5 ()?? 09/30/2023 04:21 Alkaline Phosphatase 109 units/L ()?? 09/30/2023 04:21 Lipase 63 units/L (High)?? 09/30/2023 04:21 AST (SGOT) 12 units/L ()?? 09/30/2023 04:21 ALT (SGPT) 17 units/L ()?? 09/30/2023 04:21 Bilirubin, Total 1.0 mg/dL ()?? 09/30/2023 04:21 ?? HEME OTHER Hold Blue Top SPECIMEN DISCARDED AFTER 4 HOURS. ()?? 09/29/2023 23:28 ? * Jordy DO, Kourtney S: PERFORM Event Display: Admission Note Authored Date: pt seen and examined. d/w Dr Duong. agree with above assessment and plan. THis is mainly a social admission. pt unable to fill meds d/t cost/insurance issues, will need sw assistance. also definitely has significant cognitive impairment perhaps affecting his ADLs. will need to assess home safety as well. Hospital Progress note * Delia De Jesus RN: PERFORM, SIGN, VERIFY Event Display: Progress Note Hospital Authored Date: Patient: MILAGROS PERALES Age: 73 years Sex: Male : 1950 Associated Diagnoses: None Author: Delia De Jesus RN Findings Problem Related to Alteration in Endocrine : Alteration in Endocrine Function/new 10/02/2023 2:00 EST Alteration in Endocrine Related to Diabetes, Hyperglycemia Goals & Outcomes, Endocrine Blood glucose levels will stabilize during hospitalization, Intake & Output will improve & return to baseline, Pt will receive/maintain adequate nutrition status, Pt will resume/maintain adequate cardiac output, Pt will maintain adequate GI/ function appropriate for pt, Pt will resume/maintain adequate hemodynamic status, Pt will tolerate age appropriate diet prior to discharge, Vital signs, electrolytes & blood glucose will stabilize, Pt will be maintained on sc insulin & appropriate diet, Pt will be rehydrated, Pt will resume regular activities, Pt will verbalize psychosocial implications of diabetes Interventions, Endocrine Monitor pt's response to IV hydration, Teach Pt/caregiver pain management strategies, Teach Pt/caregiver signs & symptoms of hypoglycemia, Teach Pt/caregiver signs & symptoms of hyperglycemia BH Goals/Interventions, Endocrine Yes Endocrine, Problem Start 09/30/2023 11:22 Reviewed Plan with, Endocrine Patient Patient Progression, Endocrine Pt progressing according to plan . Nursing Data Activity Data : Activity Data 10/01/2023 12:00 EST Activity Status ADL Up ad alejandra Activity Assistance Independent Ambulatory devices needed None Daily Mobility Score 6 - Walks 10 steps or more . Cardiac Data. : Cardiac Data. 10/02/2023 2:00 EST Cardiovascular Assessment Status Unchanged from recorder's assessment 10/02/2023 0:00 EST Cardiovascular Assessment Status Unchanged from recorder's assessment 10/01/2023 22:00 EST Cardiovascular Assessment Status Unchanged from recorder's assessment 10/01/2023 20:00 EST Nail Bed Color, Fingers [place] Nail Bed Color, Toes [place] Skin Temperature Upper Extremities Warm Skin Temperature Lower Extremities Warm Pacemaker No Capillary Refill < 3 seconds Radial Pulse, Left Normal Radial Pulse, Right Normal Dorsalis Pedis Pulse, Left Normal Dorsalis Pedis Pulse, Right Normal Homans' Sign Negative (Normal) electronic device monitor No Cardiovascular WNL except . Gastrointestinal Data. : Gastrointestinal Data. 10/02/2023 2:00 EST Gastrointestinal Assessment Status Unchanged from recorder's assessment 10/02/2023 0:00 EST Gastrointestinal Assessment Status Unchanged from recorder's assessment 10/01/2023 22:00 EST Gastrointestinal Assessment Status Unchanged from recorder's assessment 10/01/2023 20:00 EST Gastrointestinal Symptoms None Abdomen Soft, Non-tender Bowel Sounds LUQ Present Bowel Sounds RUQ Present Bowel Sounds LLQ Present Bowel Sounds RLQ Present GI WNL except . Genitourinary Data. : Genitourinary Data. 10/02/2023 2:00 EST Genitourinary Assessment Status Unchanged from recorder's assessment 10/02/2023 0:00 EST Genitourinary Assessment Status Unchanged from recorder's assessment 10/01/2023 22:00 EST Genitourinary Assessment Status Unchanged from recorder's assessment 10/01/2023 20:00 EST Urinary catheter type None Genitourinary Comment Voiding in urinal/ bathrrom WNL except . Integumentary Data. : Integumentary Data. 10/02/2023 2:26 EST Skin Integrity Intact Integumentary WNL except 10/01/2023 20:00 EST Skin Integrity Intact Sensory Perception Slightly limited Mobility Slightly limited Integumentary WNL except . Musculoskeletal Data. : Musculoskeletal Data. 10/01/2023 20:00 EST Musculoskeletal Symptoms Weakness Musculoskeletal WNL except . Neurological Data. : Neurological Data. 10/02/2023 2:00 EST Neurological Assessment Status Unchanged from recorder's assessment 10/02/2023 0:00 EST Neurological Assessment Status Unchanged from recorder's assessment 10/01/2023 22:18 EST Pain Intensity 0 10/01/2023 22:00 EST Neurological Assessment Status Unchanged from recorder's assessment 10/01/2023 21:18 EST Pain Intensity 0 10/01/2023 20:00 EST Tongue Disposition Midline Neurological Symptoms Weakness or loss of muscle strength Level of Consciousness Full Consciousness Orientated to person, place, time Person, Place, Time, Event Hallucinations None Facial Symmetry Intact Characteristics of Speech Clear and normal Swallowing Difficulty None Pupil description, left Regular Pupil description, right Regular Pupil reaction, left Brisk Pupil reaction, right Brisk Strength LUE 4-Active movement against gravity & some resistance Strength RUE 4-Active movement against gravity & some resistance Strength LLE 4-Active movement against gravity & some resistance Strength RLE 4-Active movement against gravity & some resistance Tone LUE Normal Tone RUE Normal Tone LLE Normal Tone RLE Normal Sensation LUE Intact Sensation RUE Intact Sensation LLE Intact Sensation RLE Intact Movement LUE To command Movement RUE To command Movement LLE To command Movement RLE To command Response Eye Opening Spontaneously Motor Response-Adult Obeys commands Verbal Response-Adult Oriented and converses [place] Coma Score 15 Neuro WNL except Eyes and Movements Conjugate gaze: Move in same direction at same speed Memory Intact Swallow - Neuro Normal . Patient Care Data. : Patient Care Data. 10/02/2023 2:05 EST Turn and Reposition Every two hours Sequential Compression Device Sequentials on bilaterally TEDS Not indicated/Not ordered ID band on Yes Allergy band in place/verified Yes Blood Pressure/Venipuncture Both arms may be used Call Handy in Reach-Ensure Ability to Use Yes Patient Instructed on Use of Call Handy Yes Standard Safety Bed alert on, Bed in low position, Chair alarm, Non-slip footwear, Upper/Half-length side-rails up, Wheels locked, Wander Guard Pt Ed-Learning: Person Taught Patient Pt Ed-Learning: Learning Readiness Yes, alert and oriented POC [facility] [place][id number] 10/02/2023 1:34 EST Glucose, POC 207 mg/dL H 10/01/2023 21:00 EST POC [facility] [place]/[id number] 10/01/2023 20:00 EST Patient's Stated Goal He wishes to have sometning to drink. Pain system assessment Absence of pain 10/01/2023 19:52 EST Glucose, POC 335 mg/dL H . Respiratory/Pulmonary Data. 10/02/2023 2:05 EST Respiratory Treatment(s) Cough and deep breathe 10/02/2023 2:00 EST Mode of Delivery (Oxygen) Room air 10/01/2023 20:00 EST Mode of Delivery (Oxygen) Room air Respiratory Symptoms None Respiratory effort Unlabored Chest expansion Symmetrical Upper Airway Clear Respiratory pattern Regular Left Upper Lobe Breath Sounds Clear Right Upper Lobe Breath Sounds Clear Right Middle Lobe Breath Sounds Clear Left Lower Lobe Breath Sounds Clear Right Lower Lobe Breath Sounds Clear Respiratory distress None Respiratory WNL except . Vital Signs : VITAL SIGNS SECTION 10/02/2023 2:02 EST Early Warning Score 3.00 10/02/2023 2:00 EST Temperature 97.7 DegF Temperature Route Oral Pulse Rate 62 bpm Respiratory Rate 20 br/min Systolic Blood Pressure 115 mm Hg Diastolic Blood Pressure 74 mm Hg Blood pressure sites Arm, left Pulse Pressure 41 mm Hg Oxygen Saturation 97 % Mode of Delivery (Oxygen) Room air 10/02/2023 1:47 EST Early Warning Score 1.00 10/02/2023 1:02 EST Early Warning Score 1.00 10/01/2023 22:18 EST Respiratory Rate 20 br/min 10/01/2023 21:20 EST Early Warning Score 1.00 10/01/2023 21:18 EST Respiratory Rate 20 br/min 10/01/2023 20:08 EST Early Warning Score 1.00 10/01/2023 20:03 EST Early Warning Score 3.00 . Pain Data : PAIN SECTION 10/01/2023 22:18 EST Pain Intensity 0 . Psychosocial : Psychosocial Data.. Evaluation Pt. alert and oriented x3, speech clear and swallow intact. OAKLEY= strong to command. denies n/t, dizziness and headache. Denies pain thusfar. LSCAT no sob or chest pain. BS+ x4 abd soft soft nontenderno n/v. Voiding in bathroom. resting comfortably. All needs at bedside. See biophysical for full assessment. Will cont. to monitor and report changes.. * Esther Mcbride RN: VERIFY, PERFORM, SIGN Event Display: Progress Note Hospital Authored Date: Patient: MILAGROS PERALES Age: 73 years Sex: Male : 1950 Associated Diagnoses: None Author: Esther Mcbride RN Findings Problem Related to Alteration in Endocrine : Alteration in Endocrine Function/new 09/30/2023 21:00 EST Alteration in Endocrine Related to Diabetes, Hyperglycemia Goals & Outcomes, Endocrine Blood glucose levels will stabilize during hospitalization, Intake & Output will improve & return to baseline, Pt will receive/maintain adequate nutrition status, Pt will resume/maintain adequate cardiac output, Pt will maintain adequate GI/ function appropriate for pt, Pt will resume/maintain adequate hemodynamic status, Pt will tolerate age appropriate diet prior to discharge, Vital signs, electrolytes & blood glucose will stabilize, Pt will be maintained on sc insulin & appropriate diet, Pt will be rehydrated, Pt will resume regular activities, Pt will verbalize psychosocial implications of diabetes Interventions, Endocrine Assess/monitor GI/ status, Assess skin turgor, temperature & capillary refill, Maintain IV access, Maintain strict I&O, Assess & monitor for insulin effects; hypoglycemia, Collaborate w/provider re: insulin dosage adjustments BH Goals/Interventions, Endocrine Yes Endocrine, Problem Start 09/30/2023 11:22 Reviewed Plan with, Endocrine Patient Patient Progression, Endocrine Pt progressing according to plan . Evaluation Pt is A+OX3, denies any pain. c/o feeling frustrated from frequent hiccups, md aware, Protonix, tums and gabapentin given with some relief. LS CTA, denies SOB and CP. +PP, no edema noted, pt ambulating down hayes with steady gait. +BSx4Q, abdomen is SNT, appetite good, no n/v/d noted. POCs covered per sliding scale. pt resting in bed at this time. call handy in reach. will CTM.. * Sheri Martin MD, Padmaja: PERFORM Event Display: Progress Note Hospital Authored Date: [id number] Patient: ??MILAGROS PERALES ? Age:??73 Years?Sex:??Male?:??1950?? Subjective Met with the patient at bedside.?? Patient is not a great historian.?? He does have memory issues for which he follows up with PCP and has a upcoming MRI/workup. ?? He follows up with Dr. Granado for HIV and is on Cabenuva q2 months-October 22..?? Office was reached at [phone]??and confirmed??the above information. ?? His blood sugars has been stable.?? Increase Lantus to 10 units with sliding scale.?? Patient does not have an accurate med list.?? Reached out to Dr. Granado's office to fax his current med list and pharmacy team is working to get his meds reconciled as patient goes to 3-4 different pharmacies. ?? Once meds are reconciled, he will need a 90-day supply for his meds to prevent noncompliance (givenhis memory deficit) his next follow-up appointment?? with his primary care is in November 30.?? [facility] pharmacy team is currently working on his med.?? He can be discharged tomorrow.?? Patient agrees with the plan. ?? Persistent hiccups, worsening with stress-added PPI, Maalox and gabapentin.?? Patient is awake alert oriented x 3.?? Home VNA services will be set up by case management team for nursing-will start on ?? 10/03/2023 Review of Systems As reviewed above. Objective Vital Signs?? Temperature: 97.8 DegF (10/01/23 15:00:00) Temperature Route: Oral (10/01/23 15:00:00) Pulse Rate: 66 bpm (10/01/23 15:00:00) Respiratory Rate: 16 br/min (10/01/23 15:00:00) Systolic Blood Pressure: 119 mm Hg (10/01/23 15:00:00) Diastolic Blood Pressure: 73 mm Hg (10/01/23 15:00:00) Blood pressure sites: Arm, left (10/01/23 15:00:00) Mean Arterial Pressure: 96 mm Hg (10/01/23 08:09:00) Pulse Pressure: 48 mm Hg (10/01/23 08:09:00) Oxygen Saturation: 96 % (10/01/23 15:00:00) Mode of Delivery (Oxygen): Room air (10/01/23 15:00:00) Early Warning Score: 3 (10/01/23 15:57:13) ? Physical Exam General: Well nourished, appears stated age, anxious in moderate distress. HEENT: moist oral mucosa. PERRLA, EOMI.?? NECK: No JVD. No bruits. Heart: Regular rate. S1 and s2 heard. No murmer, rub or gallop. Lungs: Clear to auscultation. No wheeze, crackles or rhonchi Abdomen : Soft, nondistended, nontender and bowel sounds are active. ??No organomegaly.?? Extremities: No pedal edema, swelling or cyanosis. peripheral pulses 2+ Neurological : grossly non focal. AA0 X3.? Pscy: Mood and affect appropriate.? Results Recent Labs BLOOD COUNT & DIFF WBC 14.5 k/mm3 (High)?? 10/01/2023 04:32 RBC 5.07 m/mm3 ()?? 10/01/2023 04:32 Hgb 15.5 Gm/dL ()?? 10/01/2023 04:32 Hct 46.0 % ()?? 10/01/2023 04:32 MCV 90.7 femtoliters ()?? 10/01/2023 04:32 MCH 30.6 pg ()?? 10/01/2023 04:32 MCHC 33.7 g/dL ()?? 10/01/2023 04:32 Platelet Count 164 k/mm3 ()?? 10/01/2023 04:32 RDW-SD 43.1 femtoliters ()?? 10/01/2023 04:32 MPV 9.4 femtoliters ()?? 10/01/2023 04:32 Nucleated RBC (Automated) 0.0 #/100 WBC'S ()?? 10/01/2023 04:32 Abs. NRBC 0.0 k/mm3 ()?? 10/01/2023 04:32 Abs. Neut 14.5 k/mm3 (High)?? 09/30/2023 04:21 Abs. Lymph 1.1 k/mm3 ()?? 09/30/2023 04:21 Abs. [place] 1.2 k/mm3 ()?? 09/30/2023 04:21 Abs. Eo 0.0 k/mm3 ()?? 09/30/2023 04:21 Abs. Baso 0.0 k/mm3 ()?? 09/30/2023 04:21 Neut % 85.1 % (High)?? 09/30/2023 04:21 Lymph % 6.6 % (Low)?? 09/30/2023 04:21 [place] % 6.8 % ()?? 09/30/2023 04:21 Eos % 0.1 % ()?? 09/30/2023 04:21 Baso % 0.2 % ()?? 09/30/2023 04:21 Imm Gran 1.2 % ()?? 09/30/2023 04:21 Abs. Imm Gran 0.2 k/mm3 ()?? 09/30/2023 04:21 ?? BLOOD GAS pH, Venous 7.35 ()?? 09/30/2023 01:30 ?? CARDIAC High Sensitivity Troponin (HSTnT) 62 ng/L (Critical)?? 09/30/2023 01:30 ?? CHEM GENERAL Sodium 134 mmol/L ()?? 10/01/2023 11:46 Potassium 4.4 mmol/L ()?? 10/01/2023 11:46 Chloride 101 mmol/L ()?? 10/01/2023 11:46 Bicarbonate Level 24 mmol/L ()?? 10/01/2023 11:46 Anion Gap 9 ()?? 10/01/2023 11:46 Glucose Level 248 mg/dL (High)?? 10/01/2023 04:34 Glucose, POC 220 mg/dL (High)?? 10/01/2023 11:57 BUN 39 mg/dL (High)?? 10/01/2023 04:34 Creatinine-Blood 1.6 mg/dL (High)?? 10/01/2023 04:34 Estimated GFR Creatinine 46 ML/MIN/1.73 M2 ()?? 10/01/2023 04:34 Calcium 9.7 mg/dL ()?? 09/30/2023 04:21 Calcium, Ionized pH Corrected 1.24 mmol/L ()?? 10/01/2023 11:46 Phosphorus 3.0 mg/dL ()?? 10/01/2023 11:46 Magnesium 2.2 mg/dL ()?? 10/01/2023 11:46 Protein, Total 7.4 Gm/dL ()?? 09/30/2023 04:21 Albumin 4.4 Gm/dL ()?? 09/30/2023 04:21 AG Ratio 1.5 ()?? 09/30/2023 04:21 Alkaline Phosphatase 109 units/L ()?? 09/30/2023 04:21 Lipase 63 units/L (High)?? 09/30/2023 04:21 AST (SGOT) 12 units/L ()?? 09/30/2023 04:21 ALT (SGPT) 17 units/L ()?? 09/30/2023 04:21 Bilirubin, Total 1.0 mg/dL ()?? 09/30/2023 04:21 ?? URINE OTHER Est Creatinine Clearance 39.99 mL/min ()?? 10/01/2023 05:48 ? Assessment/Plan ??73 year old male with PMH HTN, DM2, HIV (almost undetectable on last labs 08/2023) who presents with concern of malaise, weakness x3 weeks in the setting of missed medications related to financial/social concerns??found to have hyperglycemia without notable anion gap admitted for further management. of hyperglycemia as well as CM/SW consultations for assistance with social/financial concerns impacting health. ?? Hyperglycemia in the setting of DM2 Missed medication related to financial/social concerns. Medication noncompliance. Blood sugars are stable. Patient is awake alert oriented x 3 Adjusted Lantus 10 units with sliding scale. ??Pharmacy to verify his home diabetic regimen. Based on his current insurance - preferred test strips??are Accu-Chek he will need??diabetic supplies for 90 [address] to [facility]. Diabetic diet. ??Checking A1c. ??Case management and social work are involved. ?? Persistent hiccups Reflux/nausea?? Supportive care with the??Tums,?PPI. Persistent hiccups, worsening with stress-added PPI, Maalox and gabapentin.?? .? Medication noncompliance Memory impairment He does have memory issues for which he follows up with PCP and has a upcoming MRI/workup. reports ongoing issues with getting all / some medications filled, CM and SW consulted.?? Patient does not have an accurate med list.?? Reached out to Dr. Granado's office to fax his current med list and Pharmacy team is working to get his meds reconciled as patient goes to 3-4 different pharmacies. Once meds are reconciled, he will need a 90-day supply for his meds to prevent noncompliance (givenhis memory deficit)?? to [facility] His next follow-up appointment?? with his primary care is in November 30.?? [facility] pharmacy team is currently working on his med.?? He can be discharged tomorrow.?? Patient agrees with the plan. Home VNA services will be set up by case management team for nursing-will start on ?? 10/03/2023 Pharmacy??team will set up with an appointment [facility] in [place]. The clinic pharmacist is able to perform medication therapy management (MTM) ?? HIV ?He follows up with Dr. Granado for HIV and is on Cabenuva q2 months- October 22..?? Office was reached at [phone]??and confirmed??the above information. ?? Hemoconcentration, appears chronic, likely at least in part 2/2 prior testosterone use vs. ?undiagnosed KINGSLEY/other contributing factor??- Testopel held, he says he is supposed to be going for therapeutic phlebotomy- defer further mgmt tooutpatient team.?? Hemoglobin is 15.5 today. ?? Hypertension - amlodipine, lisinopril (is chronically on it even in setting of known renal dysfunction so will continue), metoprolol??with holding parameters. ?? CKD??- appears stable, can f/u outpatient ?? Full code DVT prophylaxis with Lovenox ?? Patient was seen twice today??to??discuss about his care plan. I spent a total of 55??minutes today reviewing the chart/medical records, speaking with the patient, ID??outpatient clinic, pharmacy sales assistant, social work, case management, care team??formulating and discussing the treatment plan and documenting the findings in encounter ?? Disclaimer: This dictation was accomplished with use of [employer] voice recognition software, prone tomedical word misidentifications and grammatical errors. The physician does strive to identify and correct these, but some could still be present. Please do not hesitate to contact physician for clarifications.?? Consult note * Malinda CABEZAS, Martha Parish: MODIFY, PERFORM Event Display: Consultation Note Authored Date: Patient: ??MILAGROS PERALES ? Age:??73 Years?Sex:??Male?:??1950?? Reason for Consultation Requesting Attending/Provider: Dr. Paul Duong ?? Reason for Consult: noncompliant HIV - help with management ?? Source of Information: [facility], patient ?? 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 Granado) with HTN, mixed hyperlipidemia, CAD s/p CABG, CKD stage 3, KINGSLEY, BPH and memory impairment who presented to the ED on 09/30 with feeling of being sick, unwell, weak, recent right shoulder pain after a fall with recent steroid injection and some nausea & heartburn for the last 3 weeks. He has been taking a lot of meds and difficulty getting his meds from the pharmacy so only taking 1/2 and stopping the other half.?? He denied any fevers, chills, sweats, vomiting, diarrhea, rash,cough, shortness of breath or any difference in baseline urinary symptoms.?? Vitals were as follows: Temp 98, heart rate 109, respiratory rate 15, blood pressure 166/112 and sats 98% on room air.?? Labs showed WBC 16.9 with 83.3% neutrophils, hemoglobin 18.3, platelets 192, glucose 638, BUN 44, creatinine 1.5, lipase 63, alk phos 109, AST 12, ALT 17, T. bili 1.0.?? Imaging showed nothing acute onchest x-ray. He was given 2 L of IV fluid in the ED. ID is asked to help with HIV management. When asked he states he has been seeing Dr. Granado and for his HIV for close to 30 years and despite memory impairment never forgets he needs to follow with her every 3 months - thinks do soon andtaking Cabenuva (although can't tell me when last injection was and states everything is on his phone which is sister is bringing from home for him?? today). He knows he has been well controlled. ? (Per prior ID consult in 10/2021 (Dr. Guo) he was previously on Triumeq and when admitted with [facility] with a GFR < 50 his med was changed to its individual components with his renal dysfunction.?? At that point there was also question of memory loss concerning for Alzheimer's versus HIV cognitive dysfunction with recommendation of neuropsych testing as an outpatient and close follow-up with Dr. Granado.?? The last scanned note in [facility] I can find from Dr. Granado is from 05/01/2017 with an undetectable HIV VL & CD4 668/31/8% while on Triumeq. Reviewing his scripts there is one for Cabenuva IM on 05/17/2023 (q2 months) and dates back to 03/2022with prior to this Dovato scripts by Dr. Granado.) ?? Past Medical and Surgical History: well controlled HIV on HAART (followed by Dr. Granado- diagnosed about 27 years ago with initial CD4 199 and on HAART) with lipodystrophy (previously on Egrifta but stopped as no effect), memory impairment, type II DM (IDDM), CAD s/p CABG, CKD stage 3, HLD (mixed), HTN, KINGSLEY, h/o polycythemia,?? BPH, bladder hyperactivity, androgen deficiency (hypogonadism) s/ptestosterone bead implantation left buttock (2006), ED, appendectomy, h/o diverticulosis & diverticulitis, major depression,h/o colon cancer s/p recurrent polyp and right hemicolectomy, h/o external hemorrhoids, ex-smoker (quit in ), idiopathic peripheral neuropathy per notes ?? Recent Antimicrobials: -none ?? Medications: Reviewed ?? Antimicrobial Allergies: No known antimicrobial allergies. ?? Family History: No relevant history of infectious issues in first degree relatives. ?? Social History and Infectious Diseases Exposure History: lives on own but his girlfriend sometime stays with him. ex-smoker. 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 denies alcohol or other drug use. Review of Systems a full review of system was performed which was negative other than positive pertinence mentioned above?? Physical Exam Vitals & Measurements Vital Signs?? Temperature: 97.8 DegF (09/30/23 12:41:00) Temperature Route: Oral (09/30/23 12:41:00) Pulse Rate:??111 bpm??High (09/30/23 13:55:00) Respiratory Rate: 18 br/min (09/30/23 12:41:00) Systolic Blood Pressure:??152 mm Hg??High (09/30/23 13:56:00) Diastolic Blood Pressure:??93 mm Hg??High (09/30/23 13:56:00) Blood pressure sites: Arm, left (09/30/23 12:41:00) Mean Arterial Pressure: 113 mm Hg (09/30/23 12:41:00) Pulse Pressure: 59 mm Hg (09/30/23 12:41:00) Oxygen Saturation: 94 % (09/30/23 12:41:00) Mode of Delivery (Oxygen): Room air (09/30/23 12:41:00) Early Warning Score:??13??Critical (09/30/23 14:01:04) General: Pleasant, in no apparent distress?? HEENT: PERRL, EOMI, anicteric sclera, pink conjunctiva, moist mucous membrane, no thrush, no OHL, neck supple, no cervical adenopathy, (+)lipodystrophy CVS: RRR, S1, S2 Respiratory: Clear to auscultation Abdomen: Soft, nontender, nondistended, bowel sounds present Extremities: No cyanosis, clubbing or edema Derm: No rash Neuro: Alert and oriented x3, nonfocal exam ?? LABS: WBC 17 with 85.5% neutrophils, hemoglobin 18.1, platelets 201, glucose 255, BUN 39, creatinine 1.3 ?? Last counts in [facility] showed an HIV VL <20 copies/ml on with same back to 04/30/2022 & CD4 407/38% on `08/15/2023. ?? 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 Granado - on Cabenuva q2 months) with HTN, mixed hyperlipidemia, CAD s/p CABG, CKD stage 3, KINGSLEY, BPH and memory impairment who presented to the ED on 09/30 with feeling of being sick, unwell, weak, recent right shoulder pain after a fall with recent steroid injection and some nausea & heartburn for the last 3 weeks. He has been taking a lot of meds and difficulty getting his meds from the pharmacy so only taking 1/2 and stopping the other half- per notes. Labs on admit showed hemoconcentration (vs ?polycythemia - in notes), leucocytosis and poorly controlled IDDM.?? No obvious focus of infection and satting well on room air. He remains afebrile and again on room with last labs - robust CD4 407/38% & HIV VL <20 copies/mL on 08/15/2023. He is followed by Dr. Granado and reviewing outside pharmacy records has been on Cabevuna for over a year now. Not clear when he got his last dose though and is treatment experienced. ID is asked to help with HIV management. ?? PLAN: 1. please reach out to Dr. Grnaado to confirm when he last received his injectable HIV med and when last seen in f/u. Would not change his regimen at this time as do not have old genotypes and wellknown to his own ID doc Dr. Otilia Granado -also has been doing well on this regimen. 2. unclear how much of a work up he has had for his memory impairment - defer to med team and on discussion with his ID doc will d/w team thanks for the consult. please page with ?s Problem List/Past Medical History Ongoing Acute diverticulitis Androgen deficiency BPH (benign prostatic hyperplasia) CAD (coronary artery disease) CKD (chronic kidney disease) stage 3, GFR 30-59 ml/min Colonic polyp Coronary artery disease daytime somnolence Dementia Depression Depression, major Diabetes mellitus - adult onset Diverticulosis of colon Erythrocytosis External hemorrhoids History of heart attack HIV Hyperlipidemia Hypersomnolence disorder, persistent, mild Hypertension Insulin long-term use 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 Memory problem Microalbuminuria Mixed Hyperlipidemia Obstructive sleep apnea of adult Polycythemia Respiratory symptom Rotator cuff impingement syndrome of right shoulder Type 2 diabetes mellitus with cardiac complication 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 Uncontrolled type 2 diabetes mellitus with hyperglycemia, with long-term current use of insulin Procedure/Surgical History ???CABG - Coronary artery bypass graft (10/10/2021)???Colonoscopy - Due 2023 (09/22/2018)???Esophagogastroduodenoscopy (09/10/2014)???Appendectomy???cardiac catheterization 2008???colonoscopy 2010???colonoscopy 2011???sleep study 2012???testosterone bead implantation left buttock, 2006 Medications Inpatient Acetaminophen Tablet, 650 mg, By Mouth, Every 4 hours, PRN amLODIPine 5 mg oral tablet, 2.5 mg, By Mouth, Daily Dextrose 50% Inj Syringe (25Gm), 12.5 Gm, IV Push Slowly, Every 20 minutes, PRN Dextrose 50% Inj Syringe (25Gm), 25 Gm, IV Push Slowly, Every 15 minutes, PRN Docusate Sodium Capsule, 100 mg= 1 capsule, By Mouth, 2 times a day, PRN Enoxaparin Inj, 40 mg= 0.4 mL, Subcutaneous Injection, Daily Glucagon Inj, 1 mg, Intramuscular, Once, PRN Glucose Gel, 15 Gm, By Mouth, Every 20 minutes, PRN Glucose Gel, 30 Gm, By Mouth, Every 20 minutes, PRN Insulin LISPRO Sliding Scale, 2-10 units, Subcutaneous Injection, 3 times a day before meals Lantus Inj, 8 units= 0.08 mL, Subcutaneous Injection, Daily in AM lisinopril 20 mg oral tablet, 20 mg, By Mouth, Daily Maalox Plus Liquid, 15 mL, By Mouth, 4 times a day, PRN Melatonin Tablet, 3 mg, By Mouth, Daily at bedtime, PRN Metoprolol Succinate ER 100 mg oral tablet, extended release, 200 mg, By Mouth, Daily MiraLax Powder, 17 Gm= 1 pack/packet, By Mouth, Daily, PRN NaCL 0.9% Flush, 3 mL, IV Push, Every 8 hours NaCL 0.9% Flush, 3 mL, IV Push, Every 8 hours, PRN Robitussin DM Liquid, 10 mL, By Mouth, Every 4 hours, PRN Senna Tablet, 8.6 mg= 1 tablet, By Mouth, 2 times a day, PRN Simethicone Tablet, 80 mg, Chew, 3 times a day, PRN tamsulosin 0.4 mg oral capsule, 0.4 mg, By Mouth, Daily Tums 500 mg oral tablet, chewable, 500 mg= 1 tablet, Chew, Every 4 hours, PRN Zofran Inj, 4 mg, IV Push, Every 6 hours, PRN Home amLODIPine 2.5 mg oral tablet, 2.5 mg= 1 tablet, By Mouth, Daily buPROPion 150 mg/24 hours (XL) oral tablet, extended release, 150 mg= 1 tablet, By Mouth, Daily in AM Cabenuva 600/900 intramuscular suspension, extended release, See Instructions doxycycline hyclate 100 mg oral tablet, 100 mg= 1 tablet, By Mouth, Daily finasteride 5 mg oral tablet, 5 mg= 1 tablet, By Mouth, Daily lisinopril 20 mg oral tablet, 20 mg= 1 tablet, By Mouth, Daily Metoprolol Succinate ER 200 mg oral tablet, extended release, 200 mg= 1 tablet, By Mouth, Daily Myrbetriq 50 mg oral tablet, extended release, 50 mg= 1 tablet, By Mouth, Daily NovoLOG FlexPen 100 units/mL injectable solution tamsulosin 0.4 mg oral capsule, 0.4 mg= 1 capsule, By Mouth, Daily Testopel 75 mg subcutaneous implant, 75 mg= 1 each, Subcutaneous Injection, Every 3 months Tresiba FlexTouch 200 units/mL subcutaneous solution Antibiotic History No qualifying data available. Allergies NKA Social History Alcohol Use: Never. Electronic Cigarette/Vaping Electronic Cigarette Use: Never. Employment/School Status: Disabled, Retired. Highest education level: Some college. Exercise Self assessment: Poor condition. Regular exercise: No. Home/Environment Living situation: Home/Independent. Lives with: Alone. Domestic violence in household: No. Nutrition/Health Diet: Regular, Low sodium. Caffeine intake amount: 2 cups of tea. Uses alternative healthcare: no. Sexual Gender identity: Identifies as male. Self described orientation: Straight or heterosexual. Preferred pronoun: He/him. Substance Abuse Use: Never. Tobacco Use: Former smoker, quit more than 30 days ago. Family History CAD - Coronary artery disease: Other. Dementia: Mother and Other. Diabetes mellitus type II: Mother and Other. Hyperlipidemia: Mother. PVD - Peripheral vascular disease: Other. Skin cancer: Mother. Immunizations Vaccine Date Status tetanus/diphtheria/pertussis, acel(Tdap) 03/28/2023 Given pneumococcal 23-valent vaccine 03/28/2023 Given SARS-CoV-2 mRNA (yneqghg-fegi-eyodd) vax 10/18/2021 Given influenza virus vaccine, inactivated 07/10/2021 Given Comments : [facility]: [id number] SARS-CoV-2 (COVID-19) mRNA BNT-162b2 vac 01/01/2021 Recorded SARS-CoV-2 (COVID-19) mRNA BNT-162b2 vac 12/10/2020 Recorded Influenza Virus Vaccine (oldterm) 06/13/2019 Recorded influenza virus vaccine, inactivated 06/09/2018 Recorded influenza virus vaccine, inactivated 06/04/2017 Given Comments : By Dr Granado pneumococcal 13-valent vaccine 10/03/2016 Given influenza virus vaccine, inactivated 06/23/2016 Given Comments : Dr Granado influenza virus vaccine, inactivated 05/25/2014 Given influenza virus vaccine, inactivated 06/10/2013 Given Comments : [facility] Fluvirin (oldterm) 05/23/2011 Given Tet/diphth/pertussis, acel (oldterm) 05/23/2011 Given FluLaval (oldterm) 06/09/2010 Given Comments : dr hall pneumococcal 23-valent vaccine 05/28/2009 Given Comments : [employer] [id number] ?? [id number] ?27feblo influenza virus vaccine, inactivated 05/28/2009 Given Comments : Lot [id number] (E) [id number] Note * Janel Mead RN: PERFORM Event Display: Discharge/Transfer Note Hospital Authored Date: [id number] Nursing Discharge Note Entered On: 10/02/2023 13:30 EST Performed On: 10/02/2023 13:30 EST by Janel Mead RN Nursing Discharge Note 2 Discharge Time : 10/02/2023 13:53 EST Janel Mead RN - 10/02/2023 13:53 EST Discharge Level of Care at Discharge : Homehealth/VNA Discharge VNA/Hospice/Home Care(v001) : [facility] [phone] Patient Left Unit Via : Wheelchair Patient Accompanied Off Unit with : Responsible adult DC Instructions Provided & Signed by Pt : Yes Patient Understands D/C Instructions : Yes Patient Instructions Discharge Signed : Yes Did Pt have Specialty Bed or Wound Vac : No Janel Mead RN - 10/02/2023 13:30 EST * Travis Cote MD: PERFORM Event Display: Discharge/Transfer Note Hospital Authored Date: Patient: ??MILAGROS PERALES ? Age:??73 Years?Sex:??Male?:??1950?? 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 _ Discharge Medications Amlodipine (amLODIPine 5 mg oral tablet)?1?tab(s)?5?Milligram?By Mouth?Daily Aspirin (aspirin 81 mg oral delayed release tablet)?1?tab(s)?81?Milligram?By Mouth?Daily BuPROpion (buPROPion 150 mg/24 hours (XL) oral tablet, extended release)?1?tab(s)?150?Milligram?By Mouth?Daily in AM?TAKE 1 TABLET BY MOUTH EVERY MORNING cabotegravir-rilpivirine (Cabenuva 600/900 intramuscular suspension, extended release)?See Instructions Donepezil (donepezil 10 mg oral tablet)?10?Milligram?1?tablet?By Mouth?Daily at bedtime Durable Medical Equipment (DIabetes mellitus)?See Instructions?Accucheck Glucometer : Check blood sugar 3 times before meals and at bedtime Durable Medical Equipment (Apnea Rx)?See Instructions?Use when sleeping to treat sleep apnea G47.33 Durable Medical Equipment (Test Strips)?See Instructions?Accucheck: Accucheck Glucometer : Check blood sugar 3 times before meals and at bedtime Durable Medical Equipment ([place], 31 G x 5 mm BD Ultra Fine III)?See Instructions?administer insulin daily Durable Medical Equipment (Test Strips)?See Instructions?check glucose 3 times a day before meal and bedtime Durable Medical Equipment (Lancets)?See Instructions?check three times a day before meal and at bedtime Durable Medical Equipment (Alcohol Pads)?See Instructions?check glucose 3 times a day before meal and at bedtime Finasteride (finasteride 5 mg oral tablet)?1?tab(s)?5?Milligram?By Mouth?Daily?TAKE 1 TABLET BY MOUTH EVERY DAY Glucose (glucose 4 gm oral tablet, chewable)?4?tab(s)?16?gram?Chew?Once?as needed?as needed for low blood sugar?take whenever the glucose is below 70 mg/dL, may repeat in 15 to 20 minutes if blood sugar still < 70 mg/dL insulin degludec (Tresiba FlexTouch 200 units/mL subcutaneous solution)?25?unit(s)?Subcutaneous Injection?Daily?rotate injection sites Lisinopril (lisinopril 20 mg oral tablet)?20?Milligram?1?tablet?By Mouth?Daily Metoprolol (metoprolol succinate 200 mg oral capsule, extended release)?1?capsule?200?Milligram?By Mouth?Daily mirabegron (Myrbetriq 50 mg oral tablet, extended release)?1?tab(s)?50?Milligram?By Mouth?Daily?do not crush or chew Pantoprazole (pantoprazole 20 mg oral delayed release tablet)?20?Milligram?By Mouth?Daily?for 30?Days Rosuvastatin (rosuvastatin 40 mg oral tablet)?1?tab(s)?40?Milligram?By Mouth?Daily Tamsulosin (tamsulosin 0.4 mg oral capsule)?0.4?Milligram?1?capsule?By Mouth?Daily?TAKE 1 CAPSULE BY MOUTH EVERY DAY ? Durable Medical Equipment Service Categories #1: Alf (10/02/23) Service Comments #1: The agency will contact you after dischage to [facility]. (10/02/23) Ambulatory devices needed: None (10/01/23) ? Medications Started N/A Medications Discontinued N/A Doses Changed Tresiba 25 units PCP Follow-Up/Heads-Up Glucose optimization Future Appointments Saturday 12:30 PM EST ?? Where: [facility] [address] [address]- Status: Pending Saturday 1:00 PM EST ?? With: Virginia CABEZAS, Grabiel Lepe Where: [facility] [address] [place] [address]- Status: Pending Saturday 3:20 PM EST ?? With: Maritza CABEZAS, Bailey Goss Where: [id number] [place] [address]- Status: Pending Hospital Course 73 year old male with PMH HTN, DM2, HIV (almost undetectable on last labs 08/2023) who presents with concern of malaise, weakness x3 weeks in the setting of missed medications related to financial/social concerns??found to have hyperglycemia without notable anion gap admitted for further management. of hyperglycemia as well as CM/SW consultations for assistance with social/financial concerns impacting health. 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 Patient is alert and oriented, coherent and cooperative, no new complaints, hopefully with additional resources in place will help him manage and improve compliance. Objective Assessment and Plan ?? 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 Mild cognitive impairment (G31.84) Medication non-compliance due to excessive pill burden (Z91.148) -SW and CM consult appreciated, VNA is set up to help with medications and will be referred to elderly service from community ?? Coronary artery disease without angina pectoris (I25.10) Depression (F32.9) Mixed Hyperlipidemia (E78.2) HIV positive, asymptomatic (Z21) Stage 3a chronic kidney disease (CKD) (N18.31) -stable conditions no change made will offer 3 months refill ([facility] [place] [facility]) ?? Hemoconcentration -likely at least in part 2/2 prior testosterone use vs. ?undiagnosed KINGSLEY/other contributing factor,testosterone was held due to this, recommend outpatient follow up ?? Discussed with RN/CM/SW. Measurements?? Height: 172 cm (10/02/23) Weight: 76.9 kg (09/30/23) Weight: 76.9 kg (09/30/23) Weight: 76.9 kg (09/30/23) Dry Weight: 76.9 kg (09/30/23) Body Mass Index:??25.99 kg/m2??High (09/30/23) ? Vital Signs?? Temperature: 97.3 DegF (10/02/23 12:00:00) Temperature Route: Oral (10/02/23 12:00:00) Pulse Rate: 70 bpm (10/02/23 12:00:00) Respiratory Rate:??15 br/min??Low (10/02/23 12:00:00) Systolic Blood Pressure: 119 mm Hg (10/02/23 12:00:00) Diastolic Blood Pressure: 67 mm Hg (10/02/23 12:00:00) Blood pressure sites: Arm, right (10/02/23 12:00:00) Mean Arterial Pressure: 103 mm Hg (10/02/23 07:02:00) Pulse Pressure: 52 mm Hg (10/02/23 12:00:00) Oxygen Saturation: 98 % (10/02/23 12:00:00) Mode of Delivery (Oxygen): Room air (10/02/23 12:00:00) Early Warning Score: 3 (10/02/23 12:27:52) ? Basic ADLs Activity Assistance: Independent (10/02/23) Ambulatory devices needed: None (10/01/23) Feeding Assistance: Independent (10/02/23) Hygiene: Self (10/01/23) ? Mobility & Ambulation Level Mobility & Ambulation Level Activity Assistance: Independent (10/02/23) Activity Status ADL: Reposition every 2 hours (10/02/23) Ambulatory devices needed: None (10/01/23) Range of Motion LLE: Active (09/30/23) Range of Motion LUE: Active (09/30/23) Range of Motion RLE: Active (09/30/23) Range of Motion RUE: Active (09/30/23) Repositioning: Self (09/30/23) ?? Therapeutic Activity Therapeutic Activities/Mobility/Balance?? No qualifying data available. ?? . Physical Exam Constitutional: Alert, in no acute distress. Head EENT: Extraocular muscle movement intact.??Moist mucous membranes.?? Respiratory: Clear to auscultation. No wheezing or crackles. No use of accessory muscles. Cardiovascular: S1S2 regular. No murmurs, rubs or gallops. Gastrointestinal: Abdomen soft, non-tender, non-distended. Normal bowel sounds. Genitourinary: No CVA tenderness. Extremities: No lower extremity pitting??edema. No cyanosis or clubbing. Neurologic: AAOx3, Speech normal. No focal neurological deficits. Psychiatric: Normal mood and affect Consultants ID Pending Results Add On Lab Order ordered on 10/01/2023 Electrolytes ordered on 09/30/2023 Ionized Calcium ordered on 09/30/2023 Magnesium Level ordered on 09/30/2023 Phosphorus Level ordered on 09/30/2023 Patient Education Titles High Blood Sugar (Hyperglycemia)?? Jhve-cn-Sahl: Self-Care for Low Blood Sugar (Hypoglycemia)?? Using Insulin Safely?? Follow-Up Appointments Added Follow Up ?Time Frame ?Comments Bayron Brandt DO Patient Instructions You are admitted for elevated glucose level which has been under better control in the hospital,??will be discharged with insulin upon discharge with schedule as follow: ?? Check glucose 4 times a day (before each meal and at bedtime); Bring glucometer to each outpatient provider appointment in case they need to review it; ?? Administer the long-acting insulin (Tresiba) 25 units daily in the morning; You may increase by 2-3units every 3-4 days if morning glucose is persistently above 200 mg/dL; ?? Glucose below 70 mg/dL is considered too low (hypoglycemia) and may cause symptoms, such as dizziness, heart racing, weakness, profuse sweating, passing out or seizure, which can life-threatening; Whenever you are feeling unwell or have symptoms listed above, check glucose immediately; Whenever your glucose is below 70 mg/dL (regardless if you have symptoms or not), take 4 of??glucose tablets (prescribed),??drink a cup of juice or take some candy immediately, recheck glucose in 15 minutes to ensure it normalize (>90-100 mg/dL); Notify your outpatient provider immediately as the insulin regimen may need to be adjusted; ?? When you are having trouble maintain adequate oral intake (such as an viral infection), or you haveto be fasting for a procedure next day, lower long-acting insulin to 50% of prescribed dose and check glucose more frequently that day; NEVER stop insulin completely as it may cause dangerously elevated glucose level; ?? Please obtain referral to ophthalmology and podiatry to routine exam; You should have appointment with them annually if not sooner; ?? Please follow up with primary care provider as scheduled review glucose reading and make adjustmentas needed; ?? You will have 1 month supply of all your medications (other than HIV medication) to molded goods spot picker at [facility] before discharge, there will be 3 months refill of these medications sent to??[facility] in [place]; Visiting nurse service will also be set up to visit your house and help you organize medications;? Check your blood pressure daily, hold amlodipine, lisinopril and metoprolol whenever the systolic blood pressure is below 100 mmHg that day; Also hold metoprolol whenever the heart rate is below??55 ddpy-ojz-mehnel; Review blood pressure readings with your primary care provider to adjust medications as needed;? You may use acetaminophen up to 3000 mg over 24 hours for milder pain (do not exceed this limit to avoid life-threatening liver failure); Please avoid ibuprofen, naproxen, diclofenac or other biae-zlr-fcanseg analgesics collectively called NSAIDs as these medications may trigger worsen your kidney function; ?? Return to nearest emergency room or call 911 if you experience fever T>100.4F, chill, chest painlasts longer than 10 minutes, shortness of breathing with minimal exertion, worsening or more constant abdominal pain, nausea/vomiting, food intolerance, bloody or tarry stool, extreme fatigue or dizziness, glucose s??persistently below??70 mg/dL??despite stopping insulin and??take glucose??tablets,??or other severe and/or persistent symptoms. Post Discharge Care Diet: ??Diabetic Diet ?? Activity: ??Ambulate with assistance 3 times a day unless otherwise specified ?? Code Status: ??Full Resuscitation ?? Condition: ??Stable ?? Prognosis: ??Fair ?? Misc Durable Medical Equipment ?Apnea Rx, See Instructions, # 1 each, Refills 0, Tot. Refills 0, Maintenance, Use when sleeping to treat sleep apnea G47.33, 10/01/23 16:42:00 EST, Supply, 172, cm, 10/01/23 8:09:00 EST, Height,76.9, kg, 09/30/23 11:05:00 EST, Dry Weight ?DIabetes mellitus, See Instructions, # 1 each, Refills 0, Tot. Refills 0, Maintenance, Accucheck Glucometer : Check blood sugar 3 times before meals and at bedtime, 10/01/23 16:41:00 EST, Supply, 172, cm, 10/01/23 8:09:00 EST, Height, 76.9, kg, ... Home Health Face to Face *Denotes mandatory archibald ?? *I certify that this patient is under my care and that I or an allowed non- physician working with me had a face to face encounter with the patient on this date:??10/02/2023 12:40 ?? 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 *Select the indications for the discipline/s that are being arranged for this patient. Nursing (select all that apply): [_] None [_] Medication management (reconciliation, teaching)?? [_] Chronic disease management?? [_] Wound care and treatment?? [_] Home safety evaluation [_] Administer SQ/IM/IV medications?? [_] Cath care?? [_] Drain care?? [_] Trach or GT care?? Other _ Occupation Therapy (select all that apply): [_] None [_] ADL Management [_] Fall prevention training [_] Energy conservation [_] Cognitive training Other _ Physical Therapy (select all that apply): [_] None [_] Functional mobility training [_] Home exercise program to strengthen [_] Increase ROM?? [_] Falls prevention training [_] Home maintenance program for chronic disease Other _ Speech Therapy (select all that apply): [_] None [_] Swallow evaluation and training [_] Speech and language training [_] Cognitive training to process, organize, and/or recall information Other _ ? *Homebound due to (select all that apply): [_] Inability to leave home without assistance/supervision [_] Inability to ambulate without assistance [_] Pain [_] Decreased strength and endurance [_] Unsteady gait [_] Severe SOB and fatigue [_] Impaired transfers [_] Inability to negotiate stairs [_] Limited weight bearing [_] Mental status change? *Physician Signature: _ ?? *By signing this, I certify that I have personally evaluated the patient and agree with the findings and recommendations as documented above. ? HealthFTF Results Discharge Labs BLOOD COUNT & DIFF WBC 13.5 k/mm3 (High)?? 10/02/2023 04:39 RBC 5.22 m/mm3 ()?? 10/02/2023 04:39 Hgb 16.2 Gm/dL ()?? 10/02/2023 04:39 Hct 46.4 % ()?? 10/02/2023 04:39 MCV 88.9 femtoliters ()?? 10/02/2023 04:39 MCH 31.0 pg ()?? 10/02/2023 04:39 MCHC 34.9 g/dL ()?? 10/02/2023 04:39 Platelet Count 165 k/mm3 ()?? 10/02/2023 04:39 RDW-SD 41.8 femtoliters ()?? 10/02/2023 04:39 MPV 9.7 femtoliters ()?? 10/02/2023 04:39 Nucleated RBC (Automated) 0.0 #/100 WBC'S ()?? 10/02/2023 04:39 Abs. NRBC 0.0 k/mm3 ()?? 10/02/2023 04:39 Abs. Neut 14.5 k/mm3 (High)?? 09/30/2023 04:21 Abs. Lymph 1.1 k/mm3 ()?? 09/30/2023 04:21 Abs. [place] 1.2 k/mm3 ()?? 09/30/2023 04:21 Abs. Eo 0.0 k/mm3 ()?? 09/30/2023 04:21 Abs. Baso 0.0 k/mm3 ()?? 09/30/2023 04:21 Neut % 85.1 % (High)?? 09/30/2023 04:21 Lymph % 6.6 % (Low)?? 09/30/2023 04:21 [place] % 6.8 % ()?? 09/30/2023 04:21 Eos % 0.1 % ()?? 09/30/2023 04:21 Baso % 0.2 % ()?? 09/30/2023 04:21 Imm Gran 1.2 % ()?? 09/30/2023 04:21 Abs. Imm Gran 0.2 k/mm3 ()?? 09/30/2023 04:21 ?? BLOOD GAS pH, Venous 7.35 ()?? 09/30/2023 01:30 ? CARDIAC High Sensitivity Troponin (HSTnT) 62 ng/L (Critical)?? 09/30/2023 01:30 ? CHEM GENERAL Sodium 135 mmol/L ()?? 10/02/2023 04:41 Potassium 4.5 mmol/L ()?? 10/02/2023 04:41 Chloride 103 mmol/L ()?? 10/02/2023 04:41 Bicarbonate Level 22 mmol/L ()?? 10/02/2023 04:41 Anion Gap 10 ()?? 10/02/2023 04:41 Glucose Level 214 mg/dL (High)?? 10/02/2023 04:41 Glucose, POC 187 mg/dL (High)?? 10/02/2023 08:05 Hemoglobin A1C (Monitoring) 11.4 % (High)?? 10/01/2023 04:32 BUN 45 mg/dL (High)?? 10/02/2023 04:41 Creatinine-Blood 1.5 mg/dL (High)?? 10/02/2023 04:41 Estimated GFR Creatinine 48 ML/MIN/1.73 M2 ()?? 10/02/2023 04:41 Calcium 8.9 mg/dL ()?? 10/02/2023 04:41 Calcium, Ionized pH Corrected 1.24 mmol/L ()?? 10/01/2023 11:46 Phosphorus 2.9 mg/dL ()?? 10/02/2023 04:41 Magnesium 2.2 mg/dL ()?? 10/02/2023 04:41 Protein, Total 7.4 Gm/dL ()?? 09/30/2023 04:21 Albumin 4.4 Gm/dL ()?? 09/30/2023 04:21 AG Ratio 1.5 ()?? 09/30/2023 04:21 Alkaline Phosphatase 109 units/L ()?? 09/30/2023 04:21 Lipase 63 units/L (High)?? 09/30/2023 04:21 AST (SGOT) 12 units/L ()?? 09/30/2023 04:21 ALT (SGPT) 17 units/L ()?? 09/30/2023 04:21 Bilirubin, Total 1.0 mg/dL ()?? 09/30/2023 04:21 ? HEME OTHER Hold Blue Top SPECIMEN DISCARDED AFTER 4 HOURS. ()?? 09/29/2023 23:28 ? URINE OTHER Est Creatinine Clearance 42.66 mL/min ()?? 10/02/2023 05:15 ? 50??minutes spent on discharge * Janel Mead RN: PERFORM Event Display: Patient Education/Instruction Authored Date: Inpatient Adult Discharge Instructions [address] [address] Name: MILAGROS PERALES : 1950 Visit: 09/30/2023 07:05:00 Current Date: 10/02/2023 13:06 Account: [id number] Inpatient Adult Discharge Instructions We would like to thank you for allowing us to assist you with your healthcare needs. The following includes patient education materials and information regarding your injury/illness. Our entire staffstrives to provide an excellent experience for our patients and their families. PLEASE ENSURE YOU FOLLOW-UP PER THE INSTRUCTIONS BELOW! ?? YOUR OPINION IS IMPORTANT TO US! Please complete the survey you may receive by mail or email. Your feedback will be used to make improvements to the healthcare experiences of our patients and their families. Surveys are administered by [employer]. ?? If further treatment with your primary care physician or another doctor is recommended, it is important for you to keep the appointment. Call your primary care physician or return to the Emergency Department immediately if your condition worsens, fails to improve, or new symptoms develop. If you need to find a doctor, you can call [facility] [employer] Link for a referral at [phone] or toll free at [phone] or log in to [email or web address].. ?? [facility], in keeping with [facility] guidance, no longer requires face masks [...] medical provider or home test kit. ?? You can view and manage your care through the patient portal or by using a health care ezra of your choosing. [employer] is a website that allows you to securely view your medical information including your hospital discharge summary, office visit summaries, medications and follow-up visits. You can also request appointments, renew medications, and request access to your medical information using a health care ezra of your choosing, or just ask a question. You can enroll at [email or web address] or register during your next office visit. You have been discharged from [facility], Patient Care Unit: S3. If you have any questions regarding these instructions after you leave, please call us and we will be happy to assist you. [facility] Your Care Team Attending Physician Travis Cote MD Discharging Providers Kera CABEZAS, Travis Reason for Admission HYPERGLYCEMIA Your Diagnosis HIV positive, asymptomatic Medication non-compliance due to excessive pill burden Type 2 diabetes mellitus with diabetic nephropathy, with long-term current use of insulin Stage 3a chronic kidney disease (CKD) Mild cognitive impairment Coronary artery disease without angina pectoris Depression Mixed Hyperlipidemia Tests Performed Below is a partial list of the tests performed during your hospitalization. You may have had other tests and procedures not included in this list. Please discuss all test results with your provider. Basic Metabolic Panel BUN Calcium Ionized CBC CBC w/ Differential Comprehensive Metabolic Panel Creatinine Glucose Level GLUCOSE POC HEMOGLOBIN A1C High??Sensitivity??Troponin T Hold Blue Top Tube Lipase Lytes Magnesium Level pH Venous Phosphorus Level Troponin T, High Sensitivity XR Chest 2 Views Frontal and Lat Primary Care Provider Bayron Brandt DO Advance Directive Health Care Proxy on File Yes - Health Care Proxy Discharge Vitals Temperature: 97.3 DegF Height: 172 cm Pulse Rate: 70 bpm Weight: 76.9 kg Respiratory Rate:??15 br/min??Low Weight: 76.9 kg Systolic Blood Pressure: 119 mm Hg Weight: 76.9 kg Diastolic Blood Pressure: 67 mm Hg Body Mass Index:??25.99 kg/m2??High Oxygen Saturation: 98 % Body surface area: 1.92 Studies Pending All tests and labs ordered during this hospital stay have been completed unless listed below. Please discuss all pending results with your provider listed above in these instructions. ?? Add On Lab Order Electrolytes (Lytes) Ionized Calcium (Calcium Ionized) Magnesium Level Phosphorus Level What to do next Instructions From Your Doctor You are admitted for elevated glucose level which has been under better control in the hospital,??will be discharged with insulin upon discharge with schedule as follow: ?? Check glucose 4 times a day (before each meal and at bedtime); Bring glucometer to each outpatient provider appointment in case they need to review it; ?? Administer the long-acting insulin (Tresiba) 25 units daily in the morning; You may increase by 2-3units every 3-4 days if morning glucose is persistently above 200 mg/dL; ?? Glucose below 70 mg/dL is considered too low (hypoglycemia) and may cause symptoms, such as dizziness, heart racing, weakness, profuse sweating, passing out or seizure, which can life-threatening; Whenever you are feeling unwell or have symptoms listed above, check glucose immediately; Whenever your glucose is below 70 mg/dL (regardless if you have symptoms or not), take 4 of??glucose tablets (prescribed),??drink a cup of juice or take some candy immediately, recheck glucose in 15 minutes to ensure it normalize (>90-100 mg/dL); Notify your outpatient provider immediately as the insulin regimen may need to be adjusted; ?? When you are having trouble maintain adequate oral intake (such as an viral infection), or you haveto be fasting for a procedure next day, lower long-acting insulin to 50% of prescribed dose and check glucose more frequently that day; NEVER stop insulin completely as it may cause dangerously elevated glucose level; ?? Please obtain referral to ophthalmology and podiatry to routine exam; You should have appointment with them annually if not sooner; ?? Please follow up with primary care provider as scheduled review glucose reading and make adjustmentas needed; ?? You will have 1 month supply of all your medications (other than HIV medication) to molded goods spot picker at [facility] before discharge, there will be 3 months refill of these medications sent to[facility] in [place]; Visiting nurse service will also be set up to visit your house and help you organize medications;? Check your blood pressure daily, hold amlodipine, lisinopril and metoprolol whenever the systolic blood pressure is below 100 mmHg that day; Also hold metoprolol whenever the heart rate is below??55 [id number]-[id number]; Review blood pressure readings with your primary care provider to adjust medications as needed;? You may use acetaminophen up to 3000 mg over 24 hours for milder pain (do not exceed this limit to avoid life-threatening liver failure); Please avoid ibuprofen, naproxen, diclofenac or other bwob-qoe-ilzyblg analgesics collectively called NSAIDs as these medications may trigger worsen your kidney function; ?? Return to nearest emergency room or call 911 if you experience fever T>100.4F, chill, chest painlasts longer than 10 minutes, shortness of breathing with minimal exertion, worsening or more constant abdominal pain, nausea/vomiting, food intolerance, bloody or tarry stool, extreme fatigue or dizziness, glucose s??persistently below??70 mg/dL??despite stopping insulin and??take glucose??tablets,??or other severe and/or persistent symptoms. Discharge Orders Diet:??Diabetic Diet Activity:??Ambulate with assistance 3 times a day unless otherwise specified Code Status:?? Full Resuscitation Condition:??Stable Prognosis:??Fair Scheduled Follow-Up Appointments Saturday 12:30 PM EST ?? Where: [facility] [address] [place] [address]- Status: Pending Saturday 1:00 PM EST ?? With: [place] CABEZAS, Grabiel Lepe Where: [facility] [address] [place] [address]- Status: Pending Saturday 3:20 PM EST ?? With: Maritza CABEZAS, Bailey Goss Where: [address] [address]- Status: Pending You Need to Schedule the Following Appointments Follow Up with??Bayron Brandt DO Where: ?? Discharge Medications MILAGROS PERALES :1950 Visit Date:09/30/2023 Medications: Please continue your medications until treatment is completed or stopped by your provider. Medications not listed below should be discontinued. Discuss any questions related to medications with your provider. What How Much When Instructions Next Dose New Durable Medical Equipment (Alcohol Pads) See instructions check glucose 3 times a day before meal and at bedtime ?? Pickup at [facility] 3 New Durable Medical Equipment (Apnea Rx) See instructions Use when sleeping to treat sleep apnea G47.33 ?? Pickup at [facility] 3 New Durable Medical Equipment (DIabetes mellitus) See instructions Accucheck Glucometer : Check blood sugar 3 times before meals and at bedtime ?? Pickup at [facility] 3 New Durable Medical Equipment (Lancets) See instructions check three times a day before meal and at bedtime ?? Pickup at [place] [address] New Durable Medical Equipment (Test Strips) See instructions Accucheck: Accucheck Glucometer : Check blood sugar 3 times before meals and at bedtime ?? Pickup at [place] [address] New Durable Medical Equipment (Test Strips) See instructions check glucose 3 times a day before meal and bedtime ?? Pickup at [place] [address] New Glucose (glucose 4 gm oral tablet, chewable) 4 tab(s) Chew Once as needed for as needed for low blood sugar take whenever the glucose is below 70 mg/ dL, may repeat in 15 to 20 minutes if blood sugar still < 70 mg/ dL ?? Pickup at [place] [address] as needed Changed Amlodipine (amLODIPine 5 mg oral tablet) 1 tab(s) Oral Daily Pickup at [place] [address] tomorrow at 9:00 AM Changed Aspirin (aspirin 81 mg oral delayed release tablet) 1 tab(s) Oral Daily Pickup at [place] [address] tomorrow at 9:00 AM Changed BuPROpion (buPROPion 150 mg/ 24 hours (XL) oral tablet, extended release) 1 tab(s) Oral Daily in the morning TAKE 1 TABLET BY MOUTH EVERY MORNING ?? Pickup at [place] [address] tomorrow at 9:00 AM Changed Donepezil (donepezil 10 mg oral tablet) 1 tab(s) Oral Daily at Bedtime Pickup at [place] [address] tonight at 9:00 pm Changed Durable Medical Equipment ([place], 31 G x 5 mm BD Ultra Fine III) See instructions administer insulin daily ?? Pickup at [place] [address] Changed Finasteride (finasteride 5 mg oral tablet) 1 tab(s) Oral Daily TAKE 1 TABLET BY MOUTH EVERY DAY ?? Pickup at [place] [address] tomorrow at 9:00 AM Changed Lisinopril (lisinopril 20 mg oral tablet) 1 tab(s) Oral Daily tomorrow at 9:00 AM Changed Metoprolol (metoprolol succinate 200 mg oral capsule, extended release) 1 capsule Oral Daily Pickup at [place] [address] tomorrow at 9:00 AM Changed Rosuvastatin (rosuvastatin 40 mg oral tablet) 1 tab(s) Oral Daily Pickup at [place] [address] tomorrow at 9:00 AM Changed Tamsulosin (tamsulosin 0.4 mg oral capsule) 1 capsule Oral Daily TAKE 1 CAPSULE BY MOUTH EVERY DAY ?? Pickup at [place] [address] tomorrow at 9:00 AM Changed cabotegravir-rilpivirine (Cabenuva 600/ 900 intramuscular suspension, extended release) Seeinstructions Changed insulin degludec (Tresiba FlexTouch 200 units/ mL subcutaneous solution) 25 unit(s) Subcutaneous Injection Daily rotate injection sites ?? Pickup at [place] [address] tomorrow at 9:00 AM Changed mirabegron (Myrbetriq 50 mg oral tablet, extended release) 1 tab(s) Oral Daily do not crush or chew ?? Pickup at [place] [address] tomorrow at 9:00 AM Unchanged Pantoprazole (pantoprazole 20 mg oral delayed release tablet) 20 Milligram Oral Daily Duration: 30 Days Pickup at [place] [address] tomorrow at 9:00 AM Pharmacy Information [place] [address]: [address] [place], [place] [id number] [phone] ?? What How Much When Comments Stop Taking Acetaminophen / Hydrocodone (acetaminophen-HYDROcodone 325 mg-5 mg oral tablet) 1 tab(s) Oral Every 4 hours as needed for for pain Stop Taking Doxycycline (doxycycline hyclate 100 mg oral tablet) 1 tab(s) Oral Daily TAKE 1 TABLET BY MOUTH EVERY DAY ?? Stop Taking dulaglutide (Trulicity Pen 3 mg/ 0.5 mL subcutaneous solution) 0.5 Milliliter Subcutaneous Injection Every week Take 3mg once weekly. E11.65. ?? Stop Taking Insulin Aspart (NovoLOG FlexPen 100 units/ mL injectable solution) PLEASE SEE ATTACHED FOR DETAILED DIRECTIONS ?? Stop Taking Insulin Aspart (NovoLOG FlexPen 100 units/ mL subcutaneous solution) See instructions Duration: 30 Days 3 times daily before meals; give >150 : 10 units 3 times before meals. for TYpe 2 DM 11.65 ?? Stop Taking Miscellaneous Rx (BD UF PEN NEEDLE 4MM x 32G) See instructions Use to inject insulin once daily. E11.65 ?? Stop Taking Miscellaneous Rx (FREESTYLE LITE TEST STRIP) See instructions USE DIRECTED TO CHECK BLOOD SUGARS 3X DAILY ?? Stop Taking Miscellaneous Rx (FREESTYLE LITE TEST STRIP) USE DIRECTED TO CHECK BLOOD SUGARS 3X DAILY ?? Stop Taking Sildenafil (sildenafil 20 mg oral tablet) TAKE 1 TABLET BY MOUTH 1/ 2 HOUR BEFORE SEXUAL INTERCOURSE ?? Stop Taking Testosterone (Testopel 75 mg subcutaneous implant) 1 Each Subcutaneous Injection Every 3 months Stop Taking Testosterone (Testopel) 300 Milligram Subcutaneous Infusion Every 3 months Test Results Below is a partial list of the most recent Laboratory test results done prior to this discharge. You may have had other tests and procedures not included in this list. Please discuss all test resultswith your provider. Est Creatinine Clearance - 42.66 mL/min (10/02/2023) Basic Metabolic Panel (10/02/2023) ???Sodium - 135 mmol/L???Potassium - 4.5 mmol/L???Chloride - 103 mmol/L???Bicarbonate Level - 22 mmol/L???Anion Gap - 10???Glucose Level - 214 mg/dL???BUN - 45 mg/dL???Creatinine-Blood - 1.5 mg/dL???Estimated GFR Creatinine - 48 ML/MIN/1.73 M2???Calcium - 8.9 mg/dL BUN (10/01/2023) ???BUN - 39 mg/dL Calcium Ionized (10/01/2023) ???Calcium, Ionized pH Corrected - 1.24 mmol/L CBC (10/02/2023) ???WBC - 13.5 k/mm3???RBC - 5.22 m/mm3???Hgb - 16.2 Gm/dL???Hct - 46.4 %???MCV - 88.9 femtoliters???MCH - 31.0 pg???MCHC - 34.9 g/dL???Platelet Count - 165 k/mm3???RDW-SD - 41.8 femtoliters???MPV - 9.7 femtoliters???Nucleated RBC (Automated) - 0.0 #/100 WBC'S???Abs. NRBC - 0.0 k/mm3 CBC w/ Differential (09/30/2023) ???WBC - 17.0 k/mm3???RBC - 5.85 m/mm3???Hgb - 18.1 Gm/dL???Hct - 50.9 %???MCV - 87.0 femtoliters???MCH - 30.9 pg???MCHC - 35.6 g/dL???Platelet Count - 201 k/mm3???RDW-SD - 40.0 femtoliters???MPV - 10.0 femtoliters???Nucleated RBC (Automated) - 0.0 #/100 WBC'S???Abs. NRBC - 0.0 k/mm3???Abs. Neut - 14.5 k/mm3???Abs. Lymph - 1.1 k/mm3???Abs. [place] - 1.2 k/mm3???Abs. Eo - 0.0 k/mm3???Abs. Baso - 0.0 k/mm3???Neut % - 85.1 %???Lymph % - 6.6 %???[place] % - 6.8 %???Eos % - 0.1 %???Baso % - 0.2 %???Imm Gran - 1.2 %???Abs. Imm Gran - 0.2 k/mm3 Comprehensive Metabolic Panel (09/30/2023) ???Sodium - 128 mmol/L???Potassium - 5.1 mmol/L???Chloride - 93 mmol/L???Bicarbonate Level - 18 mmol/L???Anion Gap - 17???Glucose Level - 567 mg/dL???BUN - 45 mg/dL???Creatinine-Blood - 1.5 mg/dL???Estimated GFR Creatinine - 48 ML/MIN/1.73 M2???Calcium - 9.7 mg/dL???Protein, Total - 7.4 Gm/dL???Albu min - 4.4 Gm/dL???AG Ratio - 1.5???Alkaline Phosphatase - 109 units/L???AST (SGOT) - 12 units/L???ALT (SGPT) - 17 units/L???Bilirubin, Total - 1.0 mg/dL Creatinine (10/01/2023) ???Creatinine-Blood - 1.6 mg/dL???Estimated GFR Creatinine - 46 ML/MIN/1.73 M2 Glucose Level (10/01/2023) ???Glucose Level - 248 mg/dL GLUCOSE POC (10/02/2023) ???Glucose, POC - 187 mg/dL HEMOGLOBIN A1C (10/01/2023) ???Hemoglobin A1C (Monitoring) - 11.4 % High??Sensitivity??Troponin T (09/29/2023) ???High Sensitivity Troponin (HSTnT) - 62 ng/L Hold Blue Top Tube (09/29/2023) ???Hold Blue Top - SPECIMEN DISCARDED AFTER 4 HOURS. Lipase (09/30/2023) ???Lipase - 63 units/L Lytes (10/01/2023) ???Sodium - 134 mmol/L???Potassium - 4.4 mmol/L???Chloride - 101 mmol/L???Bicarbonate Level - 24 mmol/L???Anion Gap - 9 Magnesium Level (10/02/2023) ???Magnesium - 2.2 mg/dL pH Venous (09/30/2023) ???pH, Venous - 7.35 Phosphorus Level (10/02/2023) ???Phosphorus - 2.9 mg/dL Troponin T, High Sensitivity (09/30/2023) ???High Sensitivity Troponin (HSTnT) - 62 ng/L Allergies (NKA means No Known Allergies) NKA Problems Active Problems??(33) Acute diverticulitis?? Androgen deficiency?? [facility] database administration project manager: Raisa Farcisco [phone]?? BPH (benign prostatic hyperplasia)?? CAD (coronary artery disease)?? CKD (chronic kidney disease) stage 3, GFR 30-59 ml/min?? Colonic polyp?? Coronary artery disease?? daytime somnolence?? Dementia?? Depression?? Depression, major?? Diabetes mellitus - adult onset?? Diverticulosis of colon?? Erythrocytosis?? External hemorrhoids?? History of heart attack?? HIV?? Hyperlipidemia?? Hypersomnolence disorder, persistent, mild?? Hypertension?? Insulin long-term use?? 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 Memory problem?? Microalbuminuria?? Mixed Hyperlipidemia?? Obstructive sleep apnea of adult?? Polycythemia?? Respiratory symptom?? Rotator cuff impingement syndrome of right shoulder?? Type 2 diabetes mellitus with cardiac complication?? 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?? Uncontrolled type 2 diabetes mellitus with hyperglycemia, with long-term current use of insulin?? Education Materials Below is the list of Educational Leaflet Providered with your Discharge Instructions. High Blood Sugar (Hyperglycemia)?? [id number]: Self-Care for Low Blood Sugar (Hypoglycemia)?? Using Insulin Safely?? Valuables and Belongings I fully understand and agree that [facility] accepts no responsibility for all my personal property including clothing, toilet articles, radios, jewelry, dentures, hearing aids, rings, money, or any other property that is in my possession or is brought to me after admission. I understand certain valuables may be placed in a hospital safe for a short period of time. I understand that the hospital is not liable for loss or damage due to accident, fire, or other natural occurrence while said property is in the safe. I accept full responsibility for any personal property that I keep with me, and will not hold the hospital responsible in case of loss or disappearance. I acknowledge that i have been encouraged to send valuables and belongings home. ?? Review of Valuable and Belonging List: With patient Date for Pt to Sign Valuables/Belongings: 09/30/23 13:07:00 ?? Other Discharge Information ? Case Management Discharge Plan?? Discharge Plan?? Discharge Agency Information?? Discharge Level of Care at Discharge: Homehealth/VNA Service Categories #1: Alf Discharge Rx Program: Discharge Prescription Program Service Comments #1: The agency will contact you after dischage to [facility]. Discharge VNA/Hospice/Home Care: Bebo Parham [phone] ? Pulmonary Rehab Status?? Pulmonary Rehab Discharge Status?? Respiratory Rate:??15 br/min??Low ? Common Emergency Awareness Tips IS IT A [...] are strongly encouraged to quit. Please call [facility] [employer] Link at [phone] or [phone] [phone]) or log in to [email or web address] for referrals to smoking cessation programs. ?? 084 Suicide & Crisis Lifeline is available 01/04 if you or someone you know needs to find a reason to keep living. By calling 020 you'll be connected to a skilled, trained counselor at a crisis center in your area. INPATIENT DISCHARGE INSTRUCTIONS SIGNATURE PAGE MILAGROS PERALES Location:[facility] Registration Date and Time:09/30/2023 07:05 EST Primary Care Physician: Bayron Brandt DO, Attending Physician: Travis Cote MD, I MILAGROS PERALES, have received the above patient education materials/instructions and have verbalized understanding. If ambulance or transport services are being used I further acknowledge being given a choice of service. ?? If you need to contact me, please call me at this number: . 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 [address] High Blood Sugar (Hyperglycemia) Too much sugar (glucose) in your blood is called high blood sugar (hyperglycemia). This can lead to2 dangerous conditions called ketoacidosis and hyperosmolar hyperglycemic state. In severe cases, these can lead to fluid loss (dehydration) and coma. Talk with your healthcare provider about what blood sugar range is normal for you. Work with your provider to make a plan for treating high blood sugar. Possible causes of high blood sugar ??? Having a poor treatment plan for diabetes? Being sick ??? Being under stress ??? Taking certain medicines, such as steroids ??? Eating too much food, especially carbohydrates ??? Being less active than normal ??? Not taking enough diabetes medicine ?? Symptoms of high blood sugar High blood sugar may not cause symptoms. If you do have symptoms, they may include: ??? Thirst, drymouth ??? Frequent need to pee ??? Feeling tired or drowsy ??? Upset stomach (nausea) and vomiting ??? Belly (abdominal) pain ??? Itchy, dry skin ??? Blurry vision ??? Fast breathing and breath that smells fruity? Weakness ??? Dizziness ??? Wounds or skin infections that don???t heal ??? Unexplained weight loss if high blood sugar lasts for more than a few days? What to do If you have symptoms of high blood sugar or think it might be high, check your blood sugar. If yourblood sugar is high, do the following unless told otherwise by your provider: ??? Take your diabetes medicines as prescribed. Doses of medicines such as insulin can be increasedslightly if blood sugars stay high. But your provider must approve this. Don't adjust doses by yourself. ??? Check your blood sugar more often, or as directed by your healthcare provider. ??? Drink plenty of sugar-free, caffeine-free liquids such as water. Don???t drink fruit juice. ??? Follow yoursi-day plan for taking medicine. ??? Check your blood or urine for ketones as directed by your healthcare provider. If you have ketones, don't exercise. This may make your blood sugar higher. ??? Call your provider if your blood sugar and ketones don't go back to your target range. When you have hyperglycemia, drink plenty of water or other sugar-free, caffeine-free liquids. ?? Preventing high blood sugar To help keep your blood sugar from getting too high: ??? Control stress. ??? When you're ill, follow your sick-day plan.? Follow your meal plan. Eat only the amount of food on your meal plan. ??? Stick to your exercise plan. ??? Take your insulin or diabetes medicines as directed by your healthcare team. Also test your blood sugar as directed. If the plan isn't working for you, discuss it with your healthcare provider. ?? Other things to do ??? Carry a medical ID card or a [employer] drive. Or wear a medical alert bracelet or necklace. It should say that you have diabetes. It should also say what to do in case you pass out or go into a coma. ??? Make sure family, friends, and coworkers know the signs of high blood sugar. Tell them what to do if your blood sugar gets very high and you can???t help yourself. ??? Talk with your healthcare team about other things you can do to prevent high blood sugar. ?When to call your healthcare provider Call your healthcare provider right away if you have any of the following: ??? Blood sugar that stays high even after treatment ??? Symptoms of high blood sugar that don't get better ??? Moderate or large amounts of ketones ??? Confusion ??? Shortness of breath or fast breathing ??? Breath that smells fruity ??? Vomiting or unable to eat or drink ?? Last Reviewed Date: 2021 ?? [employer]. All rights reserved. This information is not intended as a substitute for professional medical care. Always follow your healthcare professional's instructions. ?? * Travis Cote MD: PERFORM Event Display: Patient Education Leaflets Authored Date: [id number]: Self-Care for Low Blood Sugar (Hypoglycemia) ?? [id number]: Self-Care for Low Blood Sugar (Hypoglycemia) - Video This video shows how to treat low blood sugar if you have diabetes. To view the video go to this web address: [email or web address] Or, scan this QR code with your smart phone Last Reviewed Date: 2021 ?? [employer]. All rights reserved. This information is not intended as a substitute for professional medical care. Always follow your healthcare professional's instructions. ?? * Travsi Cote MD: PERFORM Event Display: Patient Education Leaflets Authored Date: [id number] Using Insulin Safely ?? Using Insulin Safely - Video Understand how to use and store your insulin properly. To view the video go to this web address: [email or web address] Or, scan this QR code with your smart phone ?? [facility] ?? Patient Care team information Care Team Personnel Name: Nuzhat Sainz Position: [place] [facility] Outreach Member Role: Lifetime Consulting Physician Name: Janel Mead RN Position: [facility] RN Member Role: Primary Care Nurse Name: Derik Gaines MD Position: [facility] Renal MD Member Role: Lifetime Consulting Physician Address: Address: [address] [place], [place] [address] [place], [place] [address] Name: Kiana Castelan MA Position: [facility] Member Role: Lifetime Consulting Physician Name: Bayron Brandt DO Position: [facility] Renal MD Member Role: PCP Address: Address: [address] [facility] [place] [address]- [place] Name: Amie Caldwell PharmD Position: [facility] Associate Professional Member Role: Lifetime Consulting Provider Address: Address: [address] [facility] [place] [address]- [place] Name: Eric Garcia RN Position: S RN Member Role: Primary Care Nurse Name: Jaclyn Schulte RN Position: S RN Member Role: Primary Care Nurse Name: Kavon Liu MD Position: Reference Physician Member Role: Lifetime Consulting Physician Address: Address: [address] [place] [address] [address] [facility] [place] [address]- Care Team Related Persons Name: DANA PERALES Address: home [address] [address] Name: BO PERALES Address: [address] [address] Name: DANA BALTAZAR Address: home [address] [address] Name: NALDO AVALOS Address: home [address] [place] [address] Name: NALDO BARNARD Address: home [address] [place] [address]
--- OUTSIDE RECORDS SUMMARY | 2024-06-17 06:02 | XMS_ITS | Continuity of Care Document ---
Author Organization [facility] Address [address] [place] [address]- Care Team Providers Care Dental Technician Apprentice Name Role Phone Maritza CABEZAS, Bailey Goss Primary Care Physic pierre [facility] - 03/14/22 [facility] [address] [place] [address]- Attending Physician: AdmMarie pizano Admitting Physician: Admtr, Ar8 Referring Physician: Admtr, Ar8 Allergies, Adverse Reactions, Alerts No Known Allergies Immunizations Given and Recorded Vaccine Date Status Refusal Reason SARS-CoV-2 mRNA (ruqaetf-vbcx-fvvyr) vax 10/18/21 Given influenza virus vaccine, inactivated [...] vaccine 7 05/28/09 Given 1Result Comment: [facility]: 83728-167-09 2Admin Note: By Dr Granado 3Admin Note: Dr Granado 4Admin Note: [facility] 5Result Comment: Lot [id number]) [id number] 6Admin Note: dr hall 7Result Comment: [employer] [id number] L287x 27feblo Medications abacavir 300 mg oral [...] tablet, 0 Refills, Maintenance, 12/20/21 15:57:00 EDT, [facility]/pharmacy #[id number], 1 tablet By Mouth Every 24 hours,x90 days, 175, cm, 12/06/21 8:15:00 EDT, Height, 78.5, kg, 10/10/21 0:43:00 EST, Dry Weight Start Date: 12/20/21 Stop Date: 03/20/22 Status: Ordered Crestor 40 mg oral tablet 1 tablet = 40 mg, By Mouth, Daily, for 90 days, # 90 tablet, 3 Refills, Hard Stop 11/05/22 10:20:00EST, 11/10/21 10:20:00 EST, Tablet, [facility]/pharmacy #0693, 175, cm, 10/27/21 13:06:00 EST, [...] 0 Refills, Maintenance, 11/10/21 15:20:00 EST, Tablet, [facility]/pharmacy #0693, Partial fill upon patient request if the prescription is for a schedule II opioid drug., 175, cm, 10/27/21 13:06:00 EST, Height... Start Date: 11/10/21 Status: Ordered metoprolol 50 mg oral tablet 50 mg, 1, tablet, By Mouth, 2 times a day, # 180 tablet, Refills 0, Tot. Refills 0, Maintenance, 12/20/21 15:57:00 EDT, Route to Pharmacy Electronically, [facility]/pharmacy #0693, Partial fill upon patientrequest if [...] each, 8 Refills, Maintenance, 04/17/22 12:47:00 EDT, [facility]/pharmacy #0693, Partial fill upon patient request if the prescription is for... Start Date: 04/17/22 Stop Date: 01/12/23 Status: Ordered Pen [place], 31 G x 5 mm BD Ultra [...] Pharmacy Electronically, [facility]/pharmacy #[id number], 175, cm, 12/06/21 8:15:00 EDT,... Start Date: 12/20/21 Status: Ordered Testopel = 300 mg, Subcutaneous Infusion, Every 3 months, 0 Refills, Maintenance, 03/26/15 23:08:01 Start Date: 03/26/15 Status: Ordered Tresiba FlexTouch 200 units/mL subcutaneous solution See Instructions, Take 28 units daily at lunch. E11.65, # 18 mL, 10 Refills, Maintenance, 03/31/21 10:22:00 EDT, [facility]/pharmacy #0693, 170, cm, 03/20/21 9:07:00 EDT, Height, 92, kg, 09/14/19 14:18:00 EST, Dry Weight Start Date: 03/31/21 Status: Ordered Trulicity Pen 3 mg/0.5 mL subcutaneous solution 0.5 mL = 3 mg, Subcutaneous Injection, Every week, Take 3mg once weekly. E11.65., # 2 mL, 5 Refills, Maintenance, 02/02/22 10:33:00 EDT, Solution, [facility]/pharmacy #[id number], Partial fill upon patient request [...]
--- OUTSIDE RECORDS SUMMARY | 2024-06-17 06:02 | XMS_ITS | Continuity of Care Document ---
Author Organization [facility] Address [address] [place] [address]- Care Team Providers Care Patient Information Coordinator Name Role Phone Maritza CABEZAS, Bailey Goss Primary Care Physic pierre [facility]21 - 02/01/21 [facility] [address] [place] [id number] Allergies, Adverse Reactions, Alerts Substance Reaction [...] 3Admin Note: [facility] 4Result Comment: Lot [id number] (E) [id number] 5Admin Note: dr hall 6Result Comment: [employer] [id number] L287x 27feblo Medications amlodipine 10 mg oral tablet 10 mg, 1, tablet, By Mouth, Daily, pharmacy wants 90 days, # 90 tablet, Refills 1, Tot. Refills 1, Maintenance, 07/10/16 21:05:57, Route to Pharmacy Electronically, [id number], [facility]/pharmacy #[id number] Start Date: 07/10/16 Stop Date: 01/06/17 Status: Ordered aspirin 81 mg oral enteric coated tablet 1 tablet = 81 mg, By Mouth, Daily, # 30 tablet, 3 Refills, Maintenance Start Date: 05/27/09 Status: Ordered BD UF RADHA PEN NEEDLE [id number] See Instructions, # 120 Unknown, Refills 5 Tot. Refills 5, USE DAILY, [facility]/pharmacy #[id number] Start Date: 07/10/19 Status: Ordered BD [...] tablet, 1 Refills, Maintenance, 06/13/20 8:06:00 EDT, [facility] STORE 24728, 90, TAKE 1 TABLET BY MOUTH EVERY 24 HOURS, 170, cm, 03/29/20 10:57:00 EDT, Height, 92, kg, 09/14/19 14:18:00 EST, Dry Weight Start Date: 06/13/20 Status: Ordered Crestor 40 mg oral tablet 1 tablet = 40 mg, By Mouth, Daily, # 90 tablet, 3 Refills, Maintenance, 08/30/20 8:19:00 EST, Tablet, [facility]/pharmacy #[id number], 170, cm, 03/29/20 10:57:00 EDT, Height, [...] CHECK BLOOD SUGARS 3 TIMES A DAY, [facility]/pharmacy #0693 Start Date: 03/10/19 Status: Ordered Freestyle [...] Maintenance, 07/07/18 11:08:24 EDT,Route to Pharmacy Electronically, [id number], [facility]/pharmacy #[id number] Start Date: 07/07/18 Status: Ordered metoprolol [...] Instructions Replace Required Details, Route to Pharmacy Electronically,[facility]/pharmacy #[id number], 170, cm, 03/29/20 10:57:00 EDT,... Start Date: 08/31/20 Status: Ordered tamsulosin 0.4 mg oral capsule See Instructions, # 90 capsule, TAKE 1 CAPSULE BY MOUTH EVERY DAY, [facility]/pharmacy #[id number] Start Date: 04/06/19 Status: Ordered Testopel [...] tablet, 1 Refills, Maintenance, 08/30/20 11:56:00 EST, [facility], 90, TAKE 1 TABLET BY MOUTH EVERY [...]
--- OUTSIDE RECORDS SUMMARY | 2024-06-17 06:02 | XMS_ITS | Continuity of Care Document ---
Author Organization [facility] Address [address] [place] [address]- Care Team Providers Care Shotweld Operator Name Role Phone Maritza CABEZAS, Bailey Goss Primary Care Physic pierre [facility] 07[facility]22 - 08/29/22 [facility] [address] [place] [id number] Allergies, Adverse Reactions, Alerts No Known Allergies Immunizations Given and Recorded Vaccine Date Status Refusal Reason SARS-CoV-2 mRNA (smdszyn-qbdv-neydi) vax 10/18/21 Given influenza virus vaccine, inactivated [...] 05/28/09 Given 1Result Comment: [facility]: 45729-393-42 2Admin Note: By Dr Granado 3Admin Note: Dr Granado 4Admin Note: [facility] 5Result Comment: Lot [id number] (E) [id number] 6Admin Note: dr hall 7Result Comment: [employer] [id number] L287x 27feblo Medications Aricept 5 mg oral tablet 5 mg, 1, tablet, By Mouth, Daily at bedtime, For memory loss, # 90 tablet, Refills 3, Tot. Refills 3, Maintenance, 08/17/22 17:19:00 EST, Route to Pharmacy Electronically, [facility]/pharmacy #0693, Partialfill upon patient request if the prescription is fo... Start Date: 08/17/22 Status: Ordered aspirin 81 mg oral delayed release tablet = 81 mg, By Mouth, Daily, # 30 tablet, 0 Refills, Maintenance, 11/10/21 15:20:00 EST, EC Tablet, [facility]/pharmacy #0693, Partial fill upon patient request [...] tablet, 1 Refills, Maintenance, 04/20/22 13:02:00 EDT, [facility]/pharmacy #0693, 1 tablet By Mouth Every [...] Stop 11/05/22 10:20:00EST, 11/10/21 10:20:00 EST, Tablet, [facility]/pharmacy #0693, 175, cm, 10/27/21 13:06:00 EST, [...] each, 8 Refills, Maintenance, 04/17/22 12:47:00 EDT, [facility]/pharmacy #0693, Partial fill upon patient request if the prescription is for... Start Date: 04/17/22 Stop Date: 01/12/23 Status: Ordered Pen [place], 31 G x 5 mm BD Ultra [...] Replace Required Details, Route to Pharmacy Electronically, [facility]/pharmacy #[id number], 175, cm, 02/06/22 16:03:00 EDT... [...] Care Team Personnel Name: Nuzhat Sainz Position: [facility] Outreach Member Role: Lifetime Consulting Physician Name: Maritza CABEZAS, Bailey Goss Position: [facility] Primary Care Physician Member Role: PCP Address: Address: [address] [place] [address]- Name: Derik Gaines MD Position: [facility] Renal MD Member Role: Lifetime Consulting Physician Address: Address: [address] [place] [address] [address] [facility] [place], [place] [address] Name: Jazmin Florez RN Position: [facility] RN Supv Member Role: Primary Care Nurse Name: Kiana Castelan Position: S Outreach Member Role: Lifetime Consulting Physician Name: Bayron Brandt DO Position: [facility] Renal MD Member Role: Lifetime Consulting Physician Address: Address: [address] [facility] [address] [facility] [place] [address]- [place] Name: Amie Caldwell PharmD Position: [facility] Associate Professional Member Role: Lifetime Consulting Provider Address: Address: [address] [facility] [place] [address]- [place] Name: Eric Garcia RN Position: [facility] RN Member Role: Primary Care Nurse Name: Jaclyn Schulte RN Position: [facility] RN Member Role: Primary Care Nurse Name: Kavon Liu MD Position: [facility] Physician (General Medicine) Member Role: Lifetime Consulting Physician Address: Address: [address] [place] [address], [address] [place] [address]- Care Team Related Persons Name: DANA PERALES Address: home [address] [place] [address] Name: BO PERALES Address: home [address] [place] [address] Name: DANA BALTAZAR Address: home [address] [place] [address] Name: NALDO AVALOS Address: home [address] [place] [address] Name: NALDO BARNARD Address: home [address] [place] [address]
--- OUTSIDE RECORDS SUMMARY | 2024-06-17 06:02 | XMS_ITS | Continuity of Care Document ---
Author Organization [facility] Sigifredo ayush Address [address] [place] [address] [place] [address]- Care Team Providers Care Chicken And Fish Butcher Name Role Phone Maritza CABEZAS, Bailey Goss Primary Care Physic pierre [facility] 10[facility]25[facility]21 - 11/24/21 [facility] Surgery [address] [place] [id number] Allergies, Adverse Reactions, Alerts No Known Allergies Immunizations Given and Recorded Vaccine Date Status Refusal Reason SARS-CoV-2 mRNA (dpwycti-ueiz-yuowq) vax 10/18/21 Given influenza virus vaccine, inactivated [...] 1Result Comment: [facility]: 49305-173-30 2Admin Note: By Dr Granado 3Admin Note: Dr Granado 4Admin Note: [facility] 5Result Comment: Lot [id number] (E) [id number] 6Admin Note: dr hall 7Result Comment: [employer] [id number] L287x 27feblo Medications abacavir 300 mg oral [...] Stop 11/05/22 10:20:00EST, 11/10/21 10:20:00 EST, Tablet, [facility]/pharmacy #[id number], 175, cm, 10/27/21 13:06:00 EST, Height, [...] 0 Refills, Maintenance, 11/10/21 15:20:00 EST, Tablet, [facility]/pharmacy #[id number], Partial fill upon patient request if the prescription is for a schedule II opioid drug., 175, cm, 10/27/21 13:06:00 EST, Height... Start Date: 11/10/21 Status: Ordered metoprolol 50 mg oral tablet 50 mg, 1, tablet, By Mouth, 2 times a day, # 60 tablet, Refills 0, Tot. Refills 0, Maintenance, 11/10/21 15:20:00 EST, Route to Pharmacy Electronically, [facility]/pharmacy #[id number], Partial fill upon patient request if the prescription is for a schedule II opi... Start Date: 11/10/21 Status: Ordered NovoLOG FlexPen 100 units/mL subcutaneous solution See Instructions, Subcutaneous Injection, 3 times daily before meals; 100-150 10 units; 151-200 12 units; 201-250 14 units; 251-300 16 units; 301-350 18 units; Over 350 20 units, # 3 each, 5 Refills,Maintenance, 10/19/21 12:47:00 EST, [facility] P... Start Date: 10/19/21 Stop Date: 04/17/22 Status: Ordered Pen [place], 31 G x 5 mm BD Ultra [...] Required Details, Route to Pharmacy Electronically, [facility]/pharmacy #[id number], 175, cm, 10/27/21 13:06:00 EST... Start [...]
--- OUTSIDE RECORDS SUMMARY | 2024-06-17 06:02 | XMS_ITS | Continuity of Care Document ---
Author Organization [facility] Address [address] [place] [address]- Care Team Providers Care Marketing Sales Consultant Name Role Phone Maritza CABEZAS, Bailey Goss Primary Care Physic pierre [facility]): 01/11/21 - 01/18/21 [facility] [address] [place] [address]- Encounter Diagnosis Hypertension(Discharge Diagnosis) - 01/11/21 Diabetes mellitus - adult onset(Discharge Diagnosis) - 01/11/21 Androgen deficiency(Discharge Diagnosis) - 01/11/21 HIV(Discharge Diagnosis) - 01/11/21 Insulin long-term use(Discharge Diagnosis) - 01/11/21 Coronary artery disease(Discharge Diagnosis) - 01/11/21 Depression, major(Discharge Diagnosis) - 01/11/21 Mixed Hyperlipidemia(Discharge Diagnosis) - 01/11/21 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) - 01/11/21 Obstructive sleep apnea of adult(Discharge Diagnosis) - 01/11/21 Fatigue(Discharge Diagnosis) - 01/11/21 CKD (chronic kidney disease) stage 3, GFR 30-59 ml/min(Discharge Diagnosis) - 01/11/21 Tubular adenoma of colon(Discharge Diagnosis) - 01/11/21 Memory loss(Discharge Diagnosis) - 01/11/21 Attending Physician: Maritza CABEZAS, Bailey Goss Allergies, [...] 3Admin Note: [facility] 4Result Comment: Lot [id number] E) [id number] 5Admin Note: dr hall 6Result Comment: [employer] [id number] L287x 27feblo Medications amlodipine 10 mg oral tablet 10 mg, 1, tablet, By Mouth, Daily, pharmacy wants 90 days, # 90 tablet, Refills 1, Tot. Refills 1, Maintenance, 07/10/16 21:05:57, Route to Pharmacy Electronically, [id number], [facility]/pharmacy #[id number] Start Date: 07/10/16 Stop Date: 01/06/17 Status: Ordered aspirin 81 mg oral enteric coated tablet 1 tablet = 81 mg, By Mouth, Daily, # 30 tablet, 3 Refills, Maintenance Start Date: 05/27/09 Status: Ordered BD UF RADHA PEN NEEDLE [id number] See Instructions, # 120 Unknown, Refills 5 [...] [facility] STORE 31673, 90, TAKE 1 TABLET BY MOUTH EVERY [...] Maintenance, 07/07/18 11:08:24 EDT,Route to Pharmacy Electronically, [id number], [facility]/pharmacy #0693 [...] mL, 5 Refills, Maintenance, 08/25/20 11:22:00 EST, [facility]/pharmacy #0693, 170, cm, 03/29/20 10:57:00 EDT, Height, 92, kg, 09/14/19 14:18:00 EST, Dry Weight Start Date: 08/25/20 Status: Ordered Triumeq oral tablet 1 tablet, By Mouth, Daily, # 90 tablet, 1 Refills, Maintenance, 08/30/20 11:56:00 EST, [facility], 90, TAKE 1 TABLET BY MOUTH EVERY [...] Effective Dates Health Status Clinical Service Informant CKD (chronic kidney disease) stage 3, GFR 30-59 ml/min Discharge Diagnosis 01/11/21 Hypertension Discharge Diagnosis 01/11/21 Androgen deficiency Discharge Diagnosis 01/11/21 Coronary artery disease Discharge Diagnosis 01/11/21 Diabetes mellitus - adult onset Discharge Diagnosis 01/11/21 HIV Discharge Diagnosis 01/11/21 Depression, major Discharge Diagnosis 01/11/21 Obstructive sleep apnea of adult Discharge Diagnosis 01/11/21 Insulin long-term use Discharge Diagnosis 01/11/21 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 Discharge Diagnosis 01/11/21 Mixed Hyperlipidemia Discharge Diagnosis 01/11/21 Tubular adenoma of colon Discharge Diagnosis 01/11/21 Memory loss Discharge Diagnosis 01/11/21 Fatigue Discharge Diagnosis 01/11/21 Procedures Procedure Date Related Diagnosis Body Site Status Appendectomy Completed Vital Signs Most recent to oldest [Reference Range]: 1 Height 170.00 cm (01/11/21 9:05 AM) Weight 91.5 kg (01/11/21 9:05 AM) Pulse Rate [55-90 bpm] 92 bpm *H* (01/11/21 9:05 AM) Body Mass Index [18.5-24.99] 31.66 *>HHI* (01/11/21 9:05 AM) Blood Pressure [90-138/55-84 mm Hg] 113/ 80mm Hg (01/11/21 9:05 AM) Blood pressure sites Arm, right (01/11/21 9:05 AM) Weight Obtained Via Standing scale (01/11/21 9:05 AM) Social History Social History Type Response Smoking Status Former smoker, quit more than 30 days ago entered on: 12/29/18 Sex
--- OUTSIDE RECORDS SUMMARY | 2024-06-17 06:03 | XMS_ITS | Continuity of Care Document ---
Author Organization [facility] Sigifredo ayush Address [address] [place] [address]- Care Team Providers Care Real Estate Broker Associate Name Role Phone Maritza CABEZAS, Bailey Goss Primary Care Physic pierre [facility]): 10[facility]27[facility] - 11/03/21 [facility] Cardiac Surgery [address] [place] [address] Attending Physician: Ivory CABEZAS, Javier Referring Physician: Ron CABEZAS, Jorge Camop Allergies, Adverse Reactions, Alerts No Known Allergies Immunizations Given and Recorded Vaccine Date Status Refusal Reason SARS-CoV-2 mRNA (eznyosu-xpug-xsgky) vax 10/18/21 Given influenza virus vaccine, inactivated [...] 23-valent vaccine 7 05/28/09 Given 1Result Comment: [facility]: 65579-594-22 2Admin Note: By Dr Granado 3Admin Note: Dr Granado 4Admin Note: [facility] 5Result Comment: Lot [id number] E) [id number] 6Admin Note: dr hall 7Result Comment: [employer] [id number] L287x 27feblo Medications abacavir 300 mg oral tablet 2 tablet = 600 mg, By Mouth, Daily, # 60 tablet, 0 Refills, Maintenance, 10/19/21 12:09:00 EST, Tablet, [facility] 3, Partial fill upon patient request if [...] Refills, Maintenance, 10/19/21 12:07:00 EST, EC Tablet, [facility] 3, Partial fill upon patient request if [...] Refills, Maintenance, 04/13/21 15:06:00 EDT, [facility]/pharmacy #0693, 90, 1 tablet By Mouth Every 24 hours, 170, cm, 03/20/21 9:07:00 EDT, Height, 92, kg, 09/14/19 14:18:00 EST, Dry Weight Start Date: 04/13/21 Status: Ordered Crestor 40 mg oral tablet 1 tablet = 40 mg, By Mouth, Daily, # 90 tablet, 3 Refills, Maintenance, 08/30/20 8:19:00 EST, Tablet, [facility]/pharmacy #0693, 170, cm, 03/29/20 10:57:00 EDT, Height, 92, kg, 09/14/19 14:18:00 EST, Dry Weight Start Date: 08/30/20 Stop Date: 08/25/21 Status: Ordered dolutegravir 50 mg oral tablet 1 tablet = 50 mg, By Mouth, Daily, # 30 tablet, 0 Refills, Maintenance, 10/19/21 12:09:00 EST, Tablet, [facility] 3, Partial fill upon patient request [...] 0 Refills, Maintenance, 10/19/21 12:13:00 EST, Tablet, [facility] 3, Partial fill upon patient request if the prescription is for a schedule II opioid drug., 175, cm, 10/19/21 8:07:00 EST, H... Start Date: 10/19/21 Status: Ordered metoprolol 50 mg oral tablet 50 mg, 1, tablet, By Mouth, 2 times a day, # 60 tablet, Refills 0, Tot. Refills 0, Maintenance, 10/19/21 12:08:00 EST, Route to Pharmacy Electronically, [facility], Partial fill upon patient request if the prescription is for a schedule... Start Date: 10/19/21 Status: Ordered NovoLOG FlexPen 100 units/mL subcutaneous solution See Instructions, Subcutaneous Injection, 3 times daily before meals; 100-150 10 units; 151-200 12 units; 201-250 14 units; 251-300 16 units; 301-350 18 units; Over 350 20 units, # 3 each, 5 Refills,Maintenance, 10/19/21 12:47:00 EST, [facility] P... Start Date: 10/19/21 Stop Date: 04/17/22 Status: Ordered Pen [place], 31 G x 5 mm BD Ultra [...] TAKE 1 CAPSULE BY MOUTH EVERY DAY, [facility]/pharmacy #[id number] Start Date: 04/06/19 Status: Ordered Testopel [...] 5 Refills, Maintenance, 10/26/21 16:50:00 EST, Solution, [facility]/pharmacy #0693, Partial fill upon patient request if the prescription is for a schedule II opioid drWilder.. Start Date: 10/26/21 Status: Ordered warfarin 1 mg oral tablet See Instructions, Take 4 tablets (4mg tonight), then as directed based on daily INR, # 120 tablet, 0 Refills, Maintenance, 10/19/21 12:14:00 EST, Tablet, [facility], Partial fill upon patient request [...] oldest [Reference Range]: 1 Height 175 cm (10/27/21 1:06 PM) Weight 80.4 kg (10/27/21 1:06 PM) Oxygen Saturation [94-100 %] 96 % (10/27/21 1:06 PM) Pulse Rate [55-90 bpm] 62 bpm (10/27/21 1:06 PM) Body Mass Index [18.5-24.99] 26.25 *H* (10/27/21 1:06 PM) Blood Pressure [90-138/55-84 mm Hg] 114/ 62mm Hg (10/27/21 1:06 PM) Respiratory Rate [16-30 br/min] 18 br/mi n (10/27/21 1:06 PM) Mode of Delivery (Oxygen) Room air (10/27/21 1:06 PM) Blood pressure sites Arm, right (10/27/21 1:06 PM) Weight Obtained Via Patient/family state d (10/27/21 1:06 PM) Social History Social History Type Response Smoking Status Former smoker, quit more than 30 days ago entered on: 12/29/18 Sex
--- OUTSIDE RECORDS SUMMARY | 2024-06-17 06:03 | XMS_ITS | Continuity of Care Document ---
Author Organization [facility] Address [address] [place] [address]- Care Team Providers Care Dog Sitter Name Role Phone Maritza CABEZAS, Bailey Goss Primary Care Physic pierre [facility]counter [facility] Date(s): 08/16/22 - 09/15/22 [facility] [address] [place] [address]- Allergies, Adverse Reactions, Alerts No Known Allergies Immunizations Given and Recorded Vaccine Date Status Refusal Reason SARS-CoV-2 mRNA (jraslfr-gjbw-tijbk) vax 10/18/21 Given influenza virus vaccine, inactivated [...] 23-valent vaccine 7 05/28/09 Given 1Result Comment: [facility]: [id number] 2Admin Note: By Dr Granado 3Admin Note: Dr Granado 4Admin Note: [facility] 5Result Comment: Lot [id number] 6Admin Note: dr hall 7Result Comment: [employer] [id number] 27feblo Medications Aricept 5 mg oral tablet 5 mg, 1, tablet, By Mouth, Daily at bedtime, For memory loss, # 90 tablet, Refills 3, Tot. Refills 3, Maintenance, 08/17/22 17:19:00 EST, Route to Pharmacy Electronically, [facility]/pharmacy #[id number], Partialfill upon patient request if the prescription is fo... Start Date: 08/17/22 Status: Ordered aspirin 81 mg oral delayed release tablet = 81 mg, By Mouth, Daily, # 30 tablet, 0 Refills, Maintenance, 11/10/21 15:20:00 EST, EC Tablet, [facility]/pharmacy #[id number], Partial fill upon patient request if [...] tablet, 1 Refills, Maintenance, 04/20/22 13:02:00 EDT, [facility]/pharmacy #[id number], 1 tablet By Mouth Every 24 [...] Stop 11/05/22 10:20:00EST, 11/10/21 10:20:00 EST, Tablet, [facility]/pharmacy #[id number], 175, cm, 10/27/21 13:06:00 EST, Height, [...] each, 8 Refills, Maintenance, 04/17/22 12:47:00 EDT, [facility]/pharmacy #[id number], Partial fill upon patient request if the prescription is for... Start Date: 04/17/22 Stop Date: 01/12/23 Status: Ordered Pen [place], 31 G x 5 mm BD Ultra [...] Replace Required Details, Route to Pharmacy Electronically, [facility]/pharmacy #[id number], 175, cm, 02/06/22 16:03:00 EDT... Start [...] Care Team Personnel Name: Nuzhat Sainz Position: [facility] Outreach Member Role: Lifetime Consulting Physician Name: Maritza CABEZAS, Bailey Goss Position: [facility] Primary Care Physician Member Role: PCP Address: Address: [address] [place] [address]- Name: Derik Gaines MD Position: [facility] Renal MD Member Role: Lifetime Consulting Physician Address: Address: [address] [facility] [place] [address]- Name: Jazmin Florez RN Position: [facility] RN Supv Member Role: Primary Care Nurse Name: Kiana Castelan Position: S Outreach Member Role: Lifetime Consulting Physician Name: Bayron Brandt DO Position: [facility] Renal MD Member Role: Lifetime Consulting Physician Address: Address: [address] [facility] [place] [address]- [place] Name: Amie Caldwell PharmD Position: [facility] Associate Professional Member Role: Lifetime Consulting Provider Address: Address: [address] [facility] [place] [address]- [place] Name: Eric Garcia RN Position: [facility] RN Member Role: Primary Care Nurse Name: Jaclyn Schulte RN Position: [facility] RN Member Role: Primary Care Nurse Name: Kavon Liu MD Position: Reference Physician Member Role: Lifetime Consulting Physician Address: Address: [address] [place] [address] [address] [facility] [place] [address]- Care Team Related Persons Name: DANA PERALES Address: home [address] [address] Name: BO PERALES Address: [address] [place] [address] Name: DANA BALTAZAR Address: home [address] [place] [address] Name: NALDO AVALOS Address: home [address] [facility] [place] [address] Name: NALDO BARNARD Address: home [address] [place] [address]
--- OUTSIDE RECORDS SUMMARY | 2024-06-17 06:03 | XMS_ITS | Continuity of Care Document ---
Author Organization [facility] Address [address] [place] [address]- Care Team Providers Care Information Security Analyst Name Role Phone Maritza CABEZAS, Bailey Goss Primary Care Physic pierre Encounter [facility] Date(s): 03/03/24 - 04/02/24 [facility] [address] [place], [place] [id number]- Attending Physician: Maire Ferrer Admitting Physician: Marie Ferrer Referring Physician: Marie Ferrer Allergies, Adverse Reactions, Alerts No Known Allergies Immunizations Given and Recorded Vaccine Date Status Refusal Reason zoster vaccine, inactivated 04/19/23 Recorded tetanus/diphtheria/pertussis, acel(Tdap) 03/28/23 Given pneumococcal 23-valent vaccine 03/28/23 Given pneumococcal 23-valent vaccine 1 05/28/09 Given [id number]-[id number] 12y+ bivalent booster vax 08/28/22 Recorded influenza [...] inactivated 6 05/28/09 Gi isidra SARS-CoV-2 mRNA (ifnebja-yetb-obxvs) vax 10/18/21 Given SARS-CoV-2 (COVID-19) mRNA BNT-162b2 vac 01/01/21 Recorded SARS-CoV-2 (COVID-19) mRNA BNT-162b2 vac 12/10/20 Recorded Influenza Virus Vaccine (oldterm) 06/13/19 Recorde d pneumococcal 13-valent vaccine 10/03/16 Given Fluvirin (oldterm) 05/23/11 Given Tet/diphth/pertussis, acel (oldterm) 05/23/11 Give n FluLaval (oldterm) 7 06/09/10 Given 1Result Comment: [employer] [id number] 27feblo 2Result Comment: [facility]: [id number] 3Admin Note: By Dr Granado 4Admin Note: Dr Granado 5Admin Note: [facility] 6Result Comment: Lot [id number] (E) [id number] 7Admin Note: dr hall Medications Alcohol Pads [...] Refills, Maintenance, 02/10/24 16:21:00 EDT, XL Tablet, [facility]/pharmacy #[id number], Partial fill [...] 10/03/23 1:26:00 EST, Route to Pharmacy Electronically, [facility]/pharmacy #[id number], Partial fill upon patient request if the prescription is for a... Start Date: 10/03/23 Status: Ordered finasteride 5 mg oral tablet 1 tablet = 5 mg, By Mouth, Daily, blister pack, # 90 tablet, 0 Refills, Maintenance, 10/03/23 1:27:00 EST, Tablet, [facility]/pharmacy #[id number], Partial [...] Refills, Maintenance, 03/03/24 12:25:00 EDT, REC Powder, [facility]/pharmacy #[id number], Partial fill upon [...] EST, Route to Pharmacy Electronically, [facility]/pharmacy #[id number], Partial fill upon patient request if the prescription is for a schedule I... Start Date: 10/03/23 Status: Ordered metoprolol succinate 200 mg oral capsule, extended release 1 capsule = 200 mg, By Mouth, Daily, blister pack, # 90 capsule, 0 Refills, Maintenance, 10/03/23 1:28:00 EST, ER Capsule, [facility]/pharmacy #[id number], Partial fill upon patient request if the prescription isfor a schedule II opioid drug., 172, cm, 10/02/23 7... Start Date: 10/03/23 Status: Ordered Myrbetriq 50 mg oral tablet, extended release 1 tablet = 50 mg, By Mouth, Daily, blister pack do not crush or chew, # 90 tablet, 0 Refills, Maintenance, 10/03/23 1:28:00 EST, ER Tablet, [facility]/pharmacy #[id number], Partial fill upon patient request if the prescription is for a schedule II opioid drug., 17... Start Date: 10/03/23 Status: Ordered ondansetron 4 mg oral tablet, disintegrating 1 tablet = 4 mg, By Mouth, Every 8 hours, PRN Nausea & Vomiting, # 9 tablet, 0 Refills, Maintenance, 01/30/24 22:44:00 EDT, Tablet, [facility]/pharmacy #[id number], Partial fill upon patient request if the prescription is for a schedule II opioid drug., 175, cm, 0... Start Date: 01/30/24 Stop Date: 02/02/24 Status: Ordered ondansetron 8 mg oral tablet, disintegrating 1 tablet = 8 mg, By Mouth, 3 times a day, PRN Nausea & Vomiting, # 9 tablet, 0 Refills, Maintenance, 01/14/24 20:00:00 EDT, DIS Tablet, [facility]/pharmacy #[id number], Partial fill [...] Weight Start Date: 02/10/24 Status: Ordered Pen [place], 31 G x 5 mm BD Ultra [...] 0 Refills, Maintenance, 10/03/23 1:28:00 EST, Tablet, [facility]/pharmacy #[id number], Partial fill upon patient request if the prescription is for a schedule II opioid drug., 172, cm, 10/02/23 7:02:00... Start Date: 10/03/23 Status: Ordered tamsulosin 0.4 mg oral capsule 0.4 mg, 1, capsule, By Mouth, Daily, blister pack, # 90 capsule, Refills 0, Tot. Refills 0, Maintenance, 10/03/23 1:29:00 EST, Route to Pharmacy Electronically, [facility]/pharmacy [...] Outreach Member Role: Lifetime Consulting Physician Name: Janle Mead RN Position: [facility] RN Member Role: Primary Care Nurse Name: Maritza CABEZAS, Bailey Goss Position: [facility] Physician - Primary Care Member Role: PCP Address: Address: [address] [place] [address]- [place] Name: Derik Gaines MD Position: [facility] Renal MD Member Role: Lifetime Consulting Physician Address: Address: [address] [facility] [place] [place] [address]- [place] Name: Kiana Castelan [place] Position: [facility] AMB [place] Member Role: Lifetime Consulting Physician Name: Bayron Brandt DO Position: [facility] Renal MD Member Role: Lifetime Consulting Physician Address: Address: [address] [facility] [place] [address]- [place] Name: Eric Garcia RN Position: [facility] RN Member Role: Primary Care Nurse Name: Jaclyn Schulte RN Position: [facility] RN Member Role: Primary Care Nurse Name: Kavon Liu MD Position: Reference Physician Member Role: Lifetime Consulting Physician Address: Address: [address] [place] [address] [address] [facility] [address]- Care Team Related Persons Name: BO PERALES Address: home [address] [place] [address] Name: DANA BALTAZAR Address: [address] [place] [address] Name: NALDO AVALOS Address: home [address] [facility] [place] [address] Name: NALDO BARNARD Address: home [address] [place] [address]
--- OUTSIDE RECORDS SUMMARY | 2024-06-17 06:03 | XMS_ITS | Continuity of Care Document ---
Author Organization [facility] ter Address [address] [place] [address]- Care Team Providers Care Mid Level Provider Name Role Phone Bayron Brandt DO Primary Care Physician Encounter [facility] Date(s): 10/12/23 - 10/12/[address] [address]- Encounter Diagnosis Confusion(Final) - 10/12/23 Coronary artery disease(Final) - 10/12/23 Chronic kidney failure(Final) - 10/12/23 Depression(Final) - 10/12/23 Dementia(Final) - 10/12/23 HIV disease(Final) - 10/12/23 Discharge Disposition: A-D/C Home Attending Physician: Vane Fritz DO Admitting Physician: Vane Fritz DO Referring Physician: Not on Staff, Referring MD Allergies, Adverse Reactions, Alerts No Known Allergies Immunizations Given and Recorded Vaccine Date Status Refusal Reason tetanus/diphtheria/pertussis, acel(Tdap) 03/28/23 Given pneumococcal 23-valent vaccine 03/28/23 Given pneumococcal 23-valent vaccine 1 05/28/09 Given SARS-CoV-2 mRNA (lwwxutn-pqna-sfwuw) vax 10/18/21 Given influenza virus vaccine, inactivated [...] FluLaval (oldterm) 7 06/09/10 Given 1Result Comment: [employer] [id number] [id number] 27feblo 2Result Comment: [facility]: 39666-912-36 3Admin Note: By Dr Granado 4Admin Note: Dr Granado 5Admin Note: [facility] 6Result Comment: Lot [id number] (E) [id number] 7Admin Note: dr hall Medications Alcohol Pads [...] Refills, Maintenance, 10/03/23 1:26:00 EST, XL Tablet, [facility]/pharmacy #[id number], Partial fill upon patient [...] 10/03/23 1:26:00 EST, Route to Pharmacy Electronically, [facility]/pharmacy #[id number], Partial fill upon patient request if the prescription is for a... Start Date: 10/03/23 Status: Ordered finasteride 5 mg oral tablet 1 tablet = 5 mg, By Mouth, Daily, blister pack, # 90 tablet, 0 Refills, Maintenance, 10/03/23 1:27:00 EST, Tablet, [facility]/pharmacy #[id number], Partial fill upon patient [...] 10/03/23 1:27:00 EST, Route to Pharmacy Electronically, [facility]/pharmacy #[id number], Partial fill upon patient request if the prescription is for a schedule I... Start Date: 10/03/23 Status: Ordered metoprolol succinate 200 mg oral capsule, extended release 1 capsule = 200 mg, By Mouth, Daily, blister pack, # 90 capsule, 0 Refills, Maintenance, 10/03/23 1:28:00 EST, ER Capsule, [facility]/pharmacy #[id number], Partial fill upon patient request if the prescription isfor a schedule II opioid drug., 172, cm, 10/02/23 7... Start Date: 10/03/23 Status: Ordered Myrbetriq 50 mg oral tablet, extended release 1 tablet = 50 mg, By Mouth, Daily, blister pack do not crush or chew, # 90 tablet, 0 Refills, Maintenance, 10/03/23 1:28:00 EST, ER Tablet, [facility]/pharmacy #[id number], Partial fill upon patient [...] 10/03/23 Stop Date: 11/02/23 Status: Ordered Pen [place], 31 G x 5 mm BD Ultra [...] 0 Refills, Maintenance, 10/03/23 1:28:00 EST, Tablet, [facility]/pharmacy #[id number], Partial fill upon patient request if the prescription is for a schedule II opioid drug., 172, cm, 10/02/23 7:02:00... Start Date: 10/03/23 Status: Ordered tamsulosin 0.4 mg oral capsule 0.4 mg, 1, capsule, By Mouth, Daily, blister pack, # 90 capsule, Refills 0, Tot. Refills 0, Maintenance, 10/03/23 1:29:00 EST, Route to Pharmacy Electronically, [facility]/pharmacy #[id number], Partial fill upon patient [...] 0 Refills, Maintenance, 10/03/23 1:27:00 EST, Solution, [facility]/pharmacy #[id number], Partial fill upon patient [...] Exam Date Time Procedure Performing Provider Status 10/12/23 11:14 AM Chest 2 Views Frontal and Lat Shamir Madden; Auth (Verified) Notes: (Chest 2 Views Frontal and Lat) Reason For Exam: chest pain;Other: RESULT: Chest 2 Views Frontal and Lat Chest 2 Views Frontal and Lat Hx of Present Illness: Pt reports I'm lost, my mind is complete fog, i live in [place] it took me 1 hour and 20 min to get here because i keep getting lost , reports that he keeps forgetting totake his meds, recently discharged; Reason: Other:; chest pain; Clinical Question(s): Pneumonia / Pneumonia COMPARISON: 09/29/2023 FINDINGS: LINES AND TUBES: None. LUNGS AND PLEURA: Clear lungs. Normal pulmonary vascularity. No pleural effusion. No pneumothorax. HEART, MEDIASTINUM AND IRIS: Heart is normal in size. Normal mediastinal and hilar contour. BONES AND SOFT TISSUES: No acute abnormality. Status-post median sternotomy. IMPRESSION: No evidence of acute abnormality. WSN: [id number] Ordering Physician: Nam Cooper Dictated By: Freddy Woodard MD Dictated Date/Time: 10/12/23 11:16 a Reviewed By: Freddy Woodard MD Signed By: Freddy Woodard MD Signed Date/Time: 10/12/23 11:16 am Transcribed By: ALEXUS Transcribed Date/Time: 10/12/23 11:15 am Vital Signs Most recent to oldest [Reference Range]: 1 2 3 Height 172 cm (10/12/23 10:32 AM) 172 cm (10/12/23 10:26 AM) Weight 79.8 kg (10/12/23 10:32 AM) 79.8 kg (10/12/23 10: AM) Oxygen Saturation [94-100 %] 100 % (10/12/23 2:07 PM) 100 % (10/12/23 10:26 AM) 98 % (10/12/23 10:26 AM) Pulse Rate [55-90 bpm] 56 bpm (10/12/23 2:07 PM) 54 bpm *L* (10/12/23 10:26 AM) 62 bpm (10/12/23 10: AM) Body Mass Index [18.5-24.99 kg/m2] 26.97 kg/m2 *H* (10/12/23 10:26 AM) Blood Pressure [90-138/55-84 mm Hg] 121/73mm Hg (10/12/23 2:07 PM) 137/78mm Hg (10/12/23 10:26 AM) Respiratory Rate [16-30 br/min] 18 br/min (10/12/23 2:07 PM) 19 br/min (10/12/23 10: AM) Temperature [96.8-100.4 DegF] 97.7 DegF (10/12/23 10: AM) Mode of Delivery (Oxygen) Room air (10/12/23 2:07 PM) Room air (10/12/23 10: AM) Room air (10/12/23 10:26 AM) Blood pressure sites Arm, left (10/12/23 2:07 PM) Arm, left (10/12/23 10:26 AM) Temperature Route Oral (10/12/23 10:26 AM) Dry Weight 79.8 kg (10/12/23 10:32 AM) 79.8 kg (10/12/23 10:26 AM) Weight Obtained Via Standing scale (10/12/23 10:26 AM) Dry Weight Obtained Via Standing scale (10/12/23 10:26 AM) Social History Social History Type Response Smoking Status Former smoker, quit more than 30 days ago entered on: 12/29/18 Sex Patient Care team information Care Team Personnel Name: Nuzhat Sainz Position: [facility] Outreach Member Role: Lifetime Consulting Physician Name: Janel Mead RN Position: [facility] RN Member Role: Primary Care Nurse Name: Derik Gaines MD Position: [facility] Renal MD Member Role: Lifetime Consulting Physician Address: Address: [address] [place] [address] [facility] [place], [place] [address] Name: Kiana Castelan [place] Position: [facility] [place] CARLOS Member Role: Lifetime Consulting Physician Name: Bayron Brandt DO Position: [facility] Renal MD Member Role: PCP Address: Address: [address] [facility] [address] [facility] [place] [address]- [place] Name: Amie Caldwell PharmD Position: [facility] Associate Professional Member Role: Lifetime Consulting Provider Address: Address: [address] [facility] [place] [address]- [place] Name: Eric Garcia RN Position: [facility] RN Member Role: Primary Care Nurse Name: Jaclyn Schulte RN Position: [facility] RN Member Role: Primary Care Nurse Name: Kavon Liu MD Position: Reference Physician Member Role: Lifetime Consulting Physician Address: Address: [address] [place] [address] [address] [facility] [place] [address]- Care Team Related Persons Name: DANA PERALES Address: home [address] [place] [address] Name: BO PERALES Address: home [address] [place] [address] Name: DANA BALTAZAR Address: home [address] [place] [address] Name: NALDO AVALOS Address: home [address] [place] [address] Name: NALDO BARNARD Address: home [address] [place] [address]
--- OUTSIDE RECORDS SUMMARY | 2024-06-17 06:03 | XMS_ITS | Continuity of Care Document ---
Author Organization [facility] Address [address] [place] [address]- Care Team Providers Care Culinary Internship Name Role Phone Maritza CABEZAS, Bailey Goss Primary Care Physic pierre [facility]counter [facility] Date(s): 02/02/21 - 03/04/21 [facility] [address] [place] [address] Allergies, Adverse Reactions, Alerts [...] 3Admin Note: [facility] 4Result Comment: Lot [id number] (E) [id number] 5Admin Note: dr hall 6Result Comment: [employer] [id number] L287x 27feblo Medications amlodipine 10 mg oral tablet 10 mg, 1, tablet, By Mouth, Daily, pharmacy wants 90 days, # 90 tablet, Refills 1, Tot. Refills 1, Maintenance, 07/10/16 21:05:57, Route to Pharmacy Electronically, [id number], [facility]/pharmacy #[id number] Start Date: 07/10/16 Stop Date: 01/06/17 Status: Ordered aspirin 81 mg oral enteric coated tablet 1 tablet = 81 mg, By Mouth, Daily, # 30 tablet, 3 Refills, Maintenance Start Date: 05/27/09 Status: Ordered BD UF RADHA PEN NEEDLE [id number] See Instructions, # 120 Unknown, Refills 5 [...] tablet, 1 Refills, Maintenance, 06/13/20 8:06:00 EDT, [facility] STORE 137[facility], 90, TAKE 1 TABLET BY MOUTH EVERY 24 HOURS, 170, cm, 03/29/20 10:57:00 EDT, Height, 92, kg, 09/14/19 14:18:00 EST, Dry Weight Start Date: 06/13/20 Status: Ordered Crestor 40 mg oral tablet 1 tablet = 40 mg, By Mouth, Daily, # 90 tablet, 3 Refills, Maintenance, 08/30/20 8:19:00 EST, Tablet, [facility]/pharmacy #[id number], 170, cm, 03/29/20 10:57:00 EDT, Height, [...] Maintenance, 07/07/18 11:08:24 EDT,Route to Pharmacy Electronically, [id number], [facility]/pharmacy #[id number] Start Date: [...] Instructions Replace Required Details, Route to Pharmacy Electronically,[facility]/pharmacy #[id number], 170, cm, 03/29/20 10:57:00 EDT,... Start Date: 08/31/20 Status: Ordered tamsulosin 0.4 mg oral capsule See Instructions, # 90 capsule, TAKE 1 CAPSULE BY MOUTH EVERY DAY, [facility]/pharmacy #[id number] Start Date: 04/06/19 Status: Ordered Testopel [...]
--- OUTSIDE RECORDS SUMMARY | 2024-06-17 06:03 | XMS_ITS | Continuity of Care Document ---
Author Organization [facility] ter Address [address] [place] [address]- Care Team Providers Care Engagement Manager Name Role Phone Maritza CABEZAS, Bailey Goss Primary Care Physic pierre [facility]counter [facility] Date[facility]s): 10/09/21 - 10/19/[address] [id number]- Encounter Diagnosis STEMI (ST elevation myocardial infarction)(Final) - 10/11/21 Discharge Disposition: A-D/C Home Attending Physician: Javier Dodson MD Admitting Physician: Ricky Villavicencio MD Referring Physician: Not on Staff, Referring MD Allergies, Adverse Reactions, Alerts No Known Allergies Immunizations Given and Recorded Vaccine Date Status Refusal Reason SARS-CoV-2 mRNA (mikgxib-fesj-itywk) vax 10/18/21 Given influenza virus vaccine, inactivated [...] Comment: [facility] [place]: [id number] 2Admin Note: By Dr Granado 3Admin Note: Dr Granado 4Admin Note: [facility] 5Result Comment: Lot [id number] ([id number] 6Admin Note: dr hall 7Result Comment: [employer] [id number] 27feblo Medications abacavir 300 mg oral tablet 2 tablet = 600 mg, By Mouth, Daily, # 60 tablet, 0 Refills, Maintenance, 10/19/21 12:09:00 EST, Tablet, [facility], Partial fill upon patient request if the prescription is for a schedule II opioid drug., 175, cm, 10/19/21 8:07:00 EST, H... Start Date: 10/19/21 Status: Ordered acetaminophen 325 mg oral tablet 975 mg, By Mouth, Every 6 hours, PRN, for 5 days, # 50 tablet, Refills 0, Tot. Refills 0, Acute 10/24/21 12:09:00 EST, Pain , Mild, 10/19/21 12:09:00 EST, Route to Pharmacy Electronically, [facility], Partial fill upon patient request if... Start Date: 10/19/21 Stop Date: 10/24/21 Status: Ordered amiodarone 200 mg oral tablet [...] Refills, Maintenance, 10/19/21 12:07:00 EST, EC Tablet, [facility], Partial fill upon patient [...] tablet, 1 Refills, Maintenance, 04/13/21 15:06:00 EDT, [facility]/pharmacy #[id number], 90, 1 tablet By Mouth Every 24 hours, 170, cm, 03/20/21 9:07:00 EDT, Height, 92, kg, 09/14/19 14:18:00 EST, Dry Weight Start Date: 04/13/21 Status: Ordered Crestor 40 mg oral tablet 1 tablet = 40 mg, By Mouth, Daily, # 90 tablet, 3 Refills, Maintenance, 08/30/20 8:19:00 EST, Tablet, [facility]/pharmacy #[id number], 170, cm, 03/29/20 10:57:00 EDT, Height, 92, kg, 09/14/19 14:18:00 EST, Dry Weight Start Date: 08/30/20 Stop Date: 08/25/21 Status: Ordered dolutegravir 50 mg oral tablet 1 tablet = 50 mg, By Mouth, Daily, # 30 tablet, 0 Refills, Maintenance, 10/19/21 12:09:00 EST, Tablet, [facility], Partial fill upon patient [...] Date: 10/19/21 Stop Date: 07/16/22 Status: Ordered Gabapentin 100 mg, Capsule, By Mouth, 10/19/21 9:00:00 EST, Stop date 10/19/21 9:00:00 EST Start Date: 10/19/21 Stop Date: 10/19/21 Status: Completed lamiVUDine 150 mg oral tablet 1 tablet = 150 mg, By Mouth, Daily, # 30 tablet, 0 Refills, Maintenance, 10/19/21 12:13:00 EST, Tablet, [facility], Partial fill upon patient request if the prescription is for a schedule II opioid drug., 175, cm, 10/19/21 8:07:00 EST, H... Start Date: 10/19/21 Status: Ordered Lasix 40 mg oral tablet 40 mg, 1, tablet, By Mouth, Daily, # 7 tablet, Refills 0, Tot. Refills 0, Maintenance, 10/19/21 12:12:00 EST, Route to Pharmacy Electronically, [facility], Partial fill upon patient request if the prescription is for a schedule II opioid... Start Date: 10/19/21 Stop Date: 10/26/21 Status: Ordered metoprolol 50 mg oral tablet 50 mg, 1, tablet, By Mouth, 2 times a day, # 60 tablet, Refills 0, Tot. Refills 0, Maintenance, 10/19/21 12:08:00 EST, Route to Pharmacy Electronically, [facility], Partial fill upon patient request if the prescription is for a schedule... Start Date: 10/19/21 Status: Ordered NovoLOG FlexPen 100 units/mL subcutaneous solution See Instructions, Subcutaneous Injection, 3 times daily before meals; 100-150 10 units; 151-200 12 units; 201-250 14 units; 251-300 16 units; 301-350 18 units; Over 350 20 units, # 3 each, 5 Refills,Maintenance, 10/19/21 12:47:00 EST, [facility]... Start Date: 10/19/21 Stop Date: 04/17/22 Status: Ordered Pen [place], 31 G x 5 mm BD Ultra Fine III See Instructions, # 100 each, Refills 5, Tot. Refills 5, Maintenance, use as directed for Type 2 Diabetes Mellitus, 10/19/21 12:23:00 EST, Supply, 175, cm, 10/19/21 8:07:00 EST, Height, 78.5, kg, 10/10/21 0:43:00 EST, Dry Weight Start Date: 10/19/21 Stop Date: 04/17/22 Status: Ordered potassium chloride 10 mEq oral tablet, extended release 4 tablet = 40 mEq, By Mouth, Daily, PRN Other, for K+ Less than 3.6 and Creatinine Less than 1.3, #28 tablet, 0 Refills, Maintenance, 10/19/21 12:13:00 EST, ER Tablet, [facility] 3, Partial fill upon patient request if the prescription is... Start Date: 10/19/21 Stop Date: 10/26/21 Status: Ordered tamsulosin 0.4 mg oral capsule See Instructions, # 90 capsule, TAKE 1 CAPSULE BY MOUTH EVERY DAY, [facility]/pharmacy #[id number] Start Date: 04/06/19 Status: Ordered Testopel = 300 mg, Subcutaneous Infusion, Every 3 months, 0 Refills, Maintenance, 03/26/15 23:08:01 Start Date: 03/26/15 Status: Ordered Tresiba FlexTouch 200 units/mL subcutaneous solution See Instructions, Take 35 units daily at lunch. E11.65, # 18 mL, 10 Refills, Maintenance, 03/31/21 10:22:00 EDT, [facility]/pharmacy #[id number], 170, cm, 03/20/21 9:07:00 EDT, Height, 92, kg, 09/14/19 14:18:00 EST, Dry Weight Start Date: 03/31/21 Status: Ordered Trulicity Pen 3 mg/0.5 mL subcutaneous solution 0.5 mL = 3 mg, Subcutaneous Injection, Every week, Take 3mg once weekly. E11.65., # 2 mL, 5 Refills, Maintenance, 04/05/21 12:10:00 EDT, Solution, [facility]/pharmacy #[id number], Partial fill upon patient request if the prescription is for a schedule II opioid . Start Date: 04/05/21 Status: Ordered warfarin 1 mg oral tablet See Instructions, Take 4 tablets (4mg tonight), then as directed based on daily INR, # 120 tablet, 0 Refills, Maintenance, 10/19/21 12:14:00 EST, Tablet, [facility], Partial fill upon patient [...] Active Respiratory symptom(Confirmed) 2 Active 1mild 2snoring Results Radiology Reports * Exam Date Time Procedure Performing Provider Status 10/16/21 3:23 PM Chest Portable Radha Bee; Auth (Verified) Notes: (Chest Portable) Reason For Exam: tube removal;Other: RESULT: Chest Portable Chest Portable Reason: tube removal; Clinical Question(s): Pneumothorax COMPARISON: Multiple prior chest radiographs, most recent 10/13/2021. FINDINGS: LINES AND TUBES: Interval removal of a right IJ introducer sheath and [place] catheter. Interval removal of mediastinal and thoracostomy drains. LUNGS AND PLEURA: Improving mild bibasilar atelectasis with minimal residual. Trace bilateral pleural effusions appear resolved. No pneumothorax. HEART, MEDIASTINUM AND IRIS: Heart is normal in size. Status post CABG and median sternotomy. Normal upper mediastinal and hilar contour. BONES AND SOFT TISSUES: No acute abnormality. IMPRESSION: Interval removal of a right IJ introducer sheath and [place] catheter as well as mediastinal and thoracostomy drains. No evidence of a pneumothorax. Improving mild bibasilar atelectasis with evidence of resolved trace bilateral pleural effusions. I have personally reviewed the images and I agree with this report. WSN: [id number] Ordering Physician: Rayna Gore Dictated By: Catie Suero DO Dictated Date/Time: 10/16/21 3:52 pm Reviewed By: Keith Martinez MD Signed By: Keith Martinez MD Signed Date/Time: 10/16/21 3:57 pm Transcribed By: ALEXUS Transcribed Date/Time: 10/16/21 3:29 pm * Exam Date Time Procedure Performing Provider Status 10/13/21 10:21 AM Chest Portable Danielle Draper; Auth (Verified) Notes: (Chest Portable) Reason For Exam: Shortness of Breath RESULT: Chest Portable Chest Portable Reason: Shortness of Breath COMPARISON: 10/11/2021. FINDINGS: LINES AND TUBES: Right IJ introducer sheath and [place] catheter along with mediastinal and thoracostomy drains are unchanged. LUNGS AND PLEURA: There is persistent left basilar atelectasis. Trace bilateral effusions. No pneumothorax. HEART, MEDIASTINUM AND IRIS: Heart is normal in size. Normal upper mediastinal and hilar contour. BONES AND SOFT TISSUES: No acute abnormality. IMPRESSION: Largely unchanged. WSN: [id number] Ordering Physician: Kamilla Hawthorne Dictated By: Shelton Jenkins MD Dictated Date/Time: 10/13/21 11:05 a Reviewed By: Shelton Jenkins MD Signed By: Shelton Jenkins MD Signed Date/Time: 10/13/21 11:05 am Transcribed By: ALEXUS Transcribed Date/Time: 10/13/21 11:03 am * Exam Date Time Procedure Performing Provider Status 10/11/21 6:19 AM Chest Portable Porsha Milton; Auth (V erified) Notes: (Chest Portable) Reason For Exam: S/P Cardiac Surgery RESULT: Chest Portable Chest Portable Reason: S P Cardiac Surgery; Clinical Question(s): Other:; Cardiac Tamponade; Special Instructions:Post Op Day 1 COMPARISON: Multiple prior chest x-rays, the most recent of which is dated 10/10/2021. FINDINGS: LINES AND TUBES: [place] catheter via the right IJ approach is projected over the pulmonary outflow tract. Left apical chest tube in stable position. Midline chest tube is also in stable position. Mediastinal drains in stable position. LUNGS AND PLEURA: Low lung volumes with mild basilar atelectasis. Scattered linear bands of atelectasis. Lungs are otherwise clear with no consolidation. No pleural effusion. No pneumothorax. HEART, MEDIASTINUM AND IRIS: Heart is normal in size. Mediastinal and hilar contours somewhat indistinct due to motion surgical intervention. BONES AND SOFT TISSUES: Prior median sternotomy. IMPRESSION: Bibasilar atelectasis with scattered linear bands of atelectasis. Lines and tubes as above. I have personally reviewed the images and I agree with this report. WSN: [id number] Ordering Physician: Hayder Austin Dictated By: Bo Angel MD Dictated Date/Time: 10/11/21 10:17 a Reviewed By: Que Ambrocio MD, V Signed By: Que Ambrocio MD, V Signed Date/Time: 10/11/21 10:22 am Transcribed By: ALEXUS Transcribed Date/Time: 10/11/21 9:34 am * Exam Date Time Procedure Performing Provider Status 10/10/21 10:00 PM Chest Portable Star Quiñones; Auth (Ve rified) Notes: (Chest Portable) Reason For Exam: S/P Cardiac Surgery RESULT: Chest Portable Chest Portable Reason: S P Cardiac Surgery; Clinical Question(s): Other:; Cardiac Tamponade; Special Instructions:On Admission to [facility] COMPARISON: Earlier same day. CT chest 10/10/2021. FINDINGS: LINES AND TUBES: Endotracheal tube below the thoracic inlet, limited evaluation relative to the galen due to obscuration. Right internal jugular approach [place] catheter with tip projecting in the main right pulmonary artery. 2 mediastinal drains and one pleural drain in each side. Enteric tube courses below the diaphragm, tip out of the [id number]-vy-sdbh. Aortic balloon pump with marker approximately 4 cm from the superior margin of the aortic arch, appears distal to the left subclavian origin on CT same day. LUNGS AND PLEURA: Bilateral perihilar linear opacities extending to the periphery of the lung likely correspond to atelectasis. No pleural effusion. No pneumothorax. HEART, MEDIASTINUM AND IRIS: Evidence of CABG. Normal cardiac silhouette for AP projection. Postoperative mediastinal silhouette. BONES AND SOFT TISSUES: No acute abnormality. IMPRESSION: Postsurgical lines and tubes as above. No large pleural effusion or pneumothorax. Bilateral band like atelectasis. I have personally reviewed the images and I agree with this report. WSN: [id number] Ordering Physician: Hayder Austin Dictated By: Augusta Ivey MD Dictated Date/Time: 10/10/21 10:17 p Reviewed By: Edmar Torres MD Signed By: Edmar Torres MD Signed Date/Time: 10/10/21 10:22 pm Transcribed By: ALEXUS Transcribed Date/Time: 10/10/21 10:10 pm * Exam Date Time Procedure Performing Provider Status 10/10/21 6:22 AM Chest Portable Linconl Dao; Bee (Gregory shah) Notes: (Chest Portable) Reason For Exam: IABP position;Other: RESULT: Chest Portable Chest Portable Reason: Other:; IABP position COMPARISON: 10/09/2021 FINDINGS: LINES AND TUBES: Intra-aortic balloon pump marker, with the marker tip 3 cm above the level of the galen and projecting over the upper aspect of the aortic knob, LUNGS AND PLEURA: Clear lungs. Normal pulmonary vascularity. No pleural effusion. No pneumothorax. HEART, MEDIASTINUM AND IRIS: Heart is normal in size. Normal upper mediastinal and hilar contour. BONES AND SOFT TISSUES: No acute abnormality. IMPRESSION: No significant change. Balloon pump marker 3 cm above the level of the galen. Lungs clear without congestion. No effusion. WSN: [id number] Ordering Physician: You Zhong Dictated By: Freddy Jade MD Dictated Date/Time: 10/10/21 10:07 a Reviewed By: Fredyd Jade MD Signed By: Freddy Jade MD Signed Date/Time: 10/10/21 10:07 am Transcribed By: ALEXUS Transcribed Date/Time: 10/10/21 10:04 am * Exam Date Time Procedure Performing Provider Status 10/09/21 7:50 PM Chest Portable Neo Nieto; Auth (Ve rified) Notes: (Chest Portable) Reason For Exam: Line Placement RESULT: Chest Portable Chest Portable Reason: Line Placement; Clinical Question(s): Other:; IABP Line Placement COMPARISON: 06/17/2021 FINDINGS: LINES AND TUBES: IABP at the level of the aortic knob LUNGS AND PLEURA: Clear lungs. Normal pulmonary vascularity. No pleural effusion. No pneumothorax. HEART, MEDIASTINUM AND IRIS: Heart is normal in size. Normal upper mediastinal and hilar contour. BONES AND SOFT TISSUES: No acute abnormality. IMPRESSION: IABP at the level of the aortic knob WSN: [id number] Ordering Physician: Sergio Glover Dictated By: Ben Baxter MD Dictated Date/Time: 10/09/21 7:57 pm Reviewed By: Ben Baxter MD Signed By: Ben Baxter MD Signed Date/Time: 10/09/21 7:57 pm Transcribed By: ALEXUS Transcribed Date/Time: 10/09/21 7:56 pm Vital Signs Most recent to oldest [Reference Range]: 1 2 3 Height 175 cm (10/19/21 8:07 AM) 175 cm (10/19/21 4:51 AM) 175 cm (10/18/21 11:45 PM) Weight 86.8 kg (10/19/21 4:56 AM) 86.8 kg (10/19/21 4:51 AM) 87.5 kg (10/18/21 5:39 AM) Oxygen Saturation [94-100 %] 100 % (10/19/21 8:07 AM) 97 % (10/19/21 4:51 AM) 98 % (10/18/21 11:45 PM) Pulse Rate [55-90 bpm] 63 bpm (10/19/21 8:07 AM) 62 bpm (10/19/21 4:51 AM) 68 bpm (10/18/21 11:45 PM) Body Mass Index [18.5-24.99] 28.34 *H* (10/19/21 4:51 AM) 28.57 *H* (10/18/21 5:28 AM) 25.63 *H* (10/10/21 12:41 AM) Blood Pressure [90-138/55-84 mm Hg] 126/61mm Hg (10/19/21 8:07 AM) 112/62mm Hg (10/19/21 4:51 AM) 106/64mm Hg (10/18/21 11:45 PM) Respiratory Rate [16-30 br/min] 18 br/min (10/19/21 9:29 AM) 18 br/min (10/19/21 8:29 AM) 18 br/min (10/19/21 8:07 AM) Temperature [96.8-100.4 DegF] 98.0 DegF (10/19/21 8:07 AM) 97.8 DegF (10/19/21 4:51 AM) 98.1 DegF (10/18/21 11:45 PM) Liters per Minute 2 L/min (10/14/21 11:00 AM) 2 L/min (10/14/21 8:00 AM) 2 L/min (10/14/21 7:00 AM) Mode of Delivery (Oxygen) Room air (10/19/21 8:07 AM) Room air (10/19/21 4:51 AM) Room air (10/18/21 11:45 PM) Blood pressure sites Arm, left (10/19/21 8:07 AM) Arm, left (10/19/21 4:51 AM) Arm, left (10/18/21 11:45 PM) Temperature Route Oral (10/19/21 8:07 AM) Oral (10/19/21 4:51 AM) Oral (10/18/21 11:45 PM) Dry Weight 78.5 kg (10/10/21 12:41 AM) Weight Obtained Via Bed scale (10/19/21 4:56 AM) Bed scale (10/19/21 4:51 AM) Bed scale (10/18/21 5:39 AM) Social History Social History Type Response Smoking Status Former smoker, quit more than 30 days ago entered on: 12/29/18 Sex
--- OUTSIDE RECORDS SUMMARY | 2024-06-17 06:03 | XMS_ITS | Continuity of Care Document ---
Author Organization [facility] Address [address] [place] [id number]- Care Team Providers Care Operations Recruiter Name Role Phone Maritza CABEZAS, Bailey Goss Primary Care Physic pierre [facility] Date[facility] 12[facility]06[facility]21 - 12/13/21 [facility] [address], [place] [address] Attending Physician: Jonnathan Jesus MD Admitting Physician: Jonnathan Jesus MD Referring Physician: Winston TIM, Cecily Allergies, Adverse Reactions, Alerts No Known Allergies Immunizations Given and Recorded Vaccine Date Status Refusal Reason SARS-CoV-2 mRNA (khsupmb-ekya-ycnqi) vax 10/18/21 Given influenza virus vaccine, inactivated [...] 23-valent vaccine 7 05/28/09 Given 1Result Comment: [facility]: [id number] 2Admin Note: By Dr Granado 3Admin Note: Dr Granado 4Admin Note: [facility] 5Result Comment: Lot [id number] 6Admin Note: dr hall 7Result Comment: [employer] [id number] 27feblo Medications abacavir 300 mg oral [...] tablet, 0 Refills, Maintenance, 11/10/21 15:20:00 EST, [facility]/pharmacy #[id number], 1 tablet By Mouth Every 24 hours, 175, cm, 10/27/21 13:06:00 EST, Height, 78.5, kg,10/10/21 0:43:00 EST, Dry Weight Start Date: 11/10/21 Status: Ordered Crestor 40 mg oral tablet 1 tablet = 40 mg, By Mouth, Daily, for 90 days, # 90 tablet, 3 Refills, Hard Stop 11/05/22 10:20:00EST, 11/10/21 10:20:00 EST, Tablet, [facility]/pharmacy #[id number], 175, cm, 10/27/21 13:06:00 EST, Height, [...] Refills, Maintenance, 11/10/21 15:20:00 EST, Tablet, [facility]/pharmacy #[id number], Partial fill upon patient request if the prescription is for a schedule II opioid drug., 175, cm, 10/27/21 13:06:00 EST, Height... Start Date: 11/10/21 Status: Ordered metoprolol 50 mg oral tablet 50 mg, 1, tablet, By Mouth, 2 times a day, # 60 tablet, Refills 0, Tot. Refills 0, Maintenance, 11/10/21 15:20:00 EST, Route to Pharmacy Electronically, [facility]/pharmacy #[id number], Partial fill upon patient request if the prescription is for a schedule II opi... Start Date: 11/10/21 Status: Ordered NovoLOG FlexPen 100 units/mL subcutaneous solution See Instructions, Subcutaneous Injection, 3 times daily before meals; 100-150 10 units; 151-200 12 units; 201-250 14 units; 251-300 16 units; 301-350 18 units; Over 350 20 units, # 3 each, 5 Refills,Maintenance, 10/19/21 12:47:00 EST, [facility]... Start Date: 10/19/21 Stop Date: 04/17/22 Status: Ordered Pen [place], 31 G x 5 mm BD Ultra [...] Required Details, Route to Pharmacy Electronically, [facility]/pharmacy #[id number], 175, cm, 10/27/21 13:06:00 EST... Start Date: 11/10/21 Stop Date: 12/10/21 Status: Ordered Testopel = 300 mg, Subcutaneous Infusion, Every 3 months, 0 Refills, Maintenance, 03/26/15 23:08:01 Start Date: 03/26/15 Status: Ordered Tresiba FlexTouch 200 units/mL subcutaneous solution See Instructions, Take 28 units daily at lunch. E11.65, # 18 mL, 10 Refills, Maintenance, 03/31/21 10:22:00 EDT, [facility]/pharmacy #[id number], 170, cm, 03/20/21 9:07:00 EDT, Height, 92, kg, 09/14/19 14:18:00 EST, Dry Weight Start Date: 03/31/21 Status: Ordered Trulicity Pen 3 mg/0.5 mL subcutaneous solution 0.5 mL = 3 mg, Subcutaneous Injection, Every week, Take 3mg once weekly. E11.65., # 2 mL, 5 Refills, Maintenance, 10/26/21 16:50:00 EST, Solution, [facility]/pharmacy #[id number], Partial fill upon patient request if [...] oldest [Reference Range]: 1 Height 175 cm (12/06/21 8:15 AM) Weight 81.65 kg (12/06/21 8:15 AM) Oxygen Saturation [94-100 %] 95 % (12/06/21 8:15 AM) Pulse Rate [55-90 bpm] 138 bpm *H* (12/06/21 8:15 AM) Body Mass Index [18.5-24.99] 26.66 *H* (12/06/21 8:15 AM) Blood Pressure [90-138/55-84 mm Hg] 150/ 96mm Hg *H* (12/06/21 8:15 AM) Mode of Delivery (Oxygen) Room air (12/06/21 8:15 AM) Blood pressure sites Arm, left (12/06/21 8:15 AM) Weight Obtained Via Patient/family state d (12/06/21 8:15 AM) Social History Social History Type Response Smoking Status Former smoker, quit more than 30 days ago entered on: 12/29/18 Sex
--- OUTSIDE RECORDS SUMMARY | 2024-06-17 06:03 | XMS_ITS | Continuity of Care Document ---
Author Organization [facility] Address [address] [place] [address]- Care Team Providers Care Mason Foreman/Superintendant Name Role Phone Maritza CABEZAS, Bailey Goss Primary Care Physic pierre [facility] Date([facility]): 10/01/22 - 01/15/23 [facility] [address] [place] [address]- Discharge Disposition: A-D/C Home Attending Physician: Raymond Olivas MD Admitting Physician: Raymond Olivas MD Referring Physician: Bailey Salas MD Allergies, Adverse Reactions, Alerts No Known Allergies Immunizations Given and Recorded Vaccine Date Status Refusal Reason SARS-CoV-2 mRNA ([id number]) vax 10/18/21 Given influenza virus vaccine, inactivated [...] 23-valent vaccine 7 05/28/09 Given 1Result Comment: [facility] [place]: [id number] 2Admin Note: By Dr Granado 3Admin Note: Dr Granado 4Admin Note: [facility] 5Result Comment: Lot [id number] ([id number]) [id number] 6Admin Note: dr hall 7Result Comment: [employer] [id number] 27feblo Medications amLODIPine 2.5 mg oral tablet 2.5 mg, 1, tablet, By Mouth, Daily, # 90 tablet, Refills 3, Tot. Refills 3, Maintenance, 10/03/22 15:00:00 EST, Route to Pharmacy Electronically, [facility]/pharmacy #[id number], Partial fill upon patient requestif the prescription is for a schedule II opioid sandip... Start Date: 10/03/22 Status: Ordered Aricept 10 mg oral tablet 10 mg, 1, tablet, By Mouth, Daily at bedtime, New dose, # 90 tablet, Refills 3, Tot. Refills 3, Maintenance, 12/28/22 16:42:00 EDT, Route to Pharmacy Electronically, [facility]/pharmacy #[id number], Partial fill upon patient request if the prescription is for a sc... Start Date: 12/28/22 Status: Ordered aspirin 81 mg oral delayed release tablet = 81 mg, By Mouth, Daily, # 30 tablet, 0 Refills, Maintenance, 11/10/21 15:20:00 EST, EC Tablet, [facility]/pharmacy #[id number], Partial fill upon [...] tablet, 1 Refills, Maintenance, 04/20/22 13:02:00 EDT, [facility]/pharmacy #[id number], 1 tablet By Mouth [...] each, 8 Refills, Maintenance, 01/12/23 12:47:00 EDT, [facility]/pharmacy #[id number], Partial fill upon patient request if th... Start Date: 01/12/23 Stop Date: 10/09/23 Status: Ordered Pen [place], 31 G x 5 mm BD Ultra [...] Pharmacy Electronically, [facility]/pharmacy #[id number], 175, cm, 10/03/22 14:39:00 EST... Start Date: 10/29/22 Status: Ordered Testopel = 300 mg, Subcutaneous Infusion, Every 3 months, 0 Refills, Maintenance, 03/26/15 23:08:01 Start Date: 03/26/15 Status: Ordered Tresiba FlexTouch 200 units/mL subcutaneous solution See Instructions, Take 22 units daily at lunch. E11.65, # 9 mL, 10 Refills, Maintenance, 12/31/22 11:09:00 EDT, [facility]/pharmacy #[id number], 175, cm, 12/28/22 15:56:00 EDT, Height, 81.65, kg, 06/19/22 9:04:00EDT, Dry Weight Start Date: 12/31/22 Status: Ordered Trulicity Pen 3 mg/0.5 mL subcutaneous solution 0.5 mL = 3 mg, Subcutaneous Injection, Every week, Take 3mg once weekly. E11.65., # 2 mL, 5 Refills, Maintenance, 10/18/22 16:22:00 EST, Solution, [facility], Partial fill upon patient request [...] Care Team Personnel Name: Nuzhat Sainz Position: [facility] Outreach Member Role: Lifetime Consulting Physician Name: Maritza CABEZAS, Bailey Goss Position: [facility] Primary Care Physician Member Role: PCP Address: Address: [address] [place] [address]- [place] Name: Derik Gaines MD Position: [facility] Renal MD Member Role: Lifetime Consulting Physician Address: Address: [address] [facility] [place] [place] [address]- [place] Name: Jazmin Florez RN Position: [facility] RN Supv Member Role: Primary Care Nurse Name: Kiana Castelan Position: [facility] Outreach Member Role: Lifetime Consulting Physician Name: Bayron Brandt DO Position: [facility] Renal MD Member Role: Lifetime Consulting Physician Address: Address: [address] [facility] [place] [address]- Name: Amie Caldwell PharmD Position: [facility] Associate Professional Member Role: Lifetime Consulting Provider Address: Address: [address] [facility] [place] [address]- [place] Name: Eric Garcia RN Position: [facility] RN Member Role: Primary Care Nurse Name: Jaclyn Schulte RN Position: [facility] RN Member Role: Primary Care Nurse Name: Kavon Liu MD Position: Reference Physician Member Role: Lifetime Consulting Physician Address: Address: [address] [place] [address] [address] [facility] [place] [address]- Care Team Related Persons Name: DANA PERALES Address: home [address] [place] [address] Name: BO PERALES Address: home [address] [place] [address] Name: DANA BALTAZAR Address: home [address] [place] [address] Name: NALDO AVALOS Address: home [address] [place] [address] Name: NALDO BARNARD Address: [address] [address]
--- OUTSIDE RECORDS SUMMARY | 2024-06-17 06:03 | XMS_ITS | Continuity of Care Document ---
Author Organization [facility] ter Address [address] [place] [address]- Care Team Providers Care Spring Tier Name Role Phone Maritza CABEZAS, Bailey Goss Primary Care Physic pierre [facility] Date[facility]): 01/19/24 - 01/19/[address] [address]- Discharge Disposition: A-D/C Home Attending Physician: Haley Olivares MD Admitting Physician: Haley Olivares MD Referring Physician: Not on Staff, Referring MD Allergies, Adverse Reactions, Alerts No Known Allergies Immunizations Given and Recorded Vaccine Date Status Refusal Reason zoster vaccine, inactivated 04/19/23 Recorded tetanus/diphtheria/pertussis, acel(Tdap) 03/28/23 Given pneumococcal 23-valent vaccine 03/28/23 Given pneumococcal 23-valent vaccine 1 05/28/09 Given [id number] 12y+ bivalent booster vax 08/28/22 Recorded influenza [...] inactivated 6 05/28/09 Gi isidra SARS-CoV-2 mRNA (tenoesx-gczq-kxvzj) vax 10/18/21 Given SARS-CoV-2 (COVID-19) mRNA BNT-162b2 vac 01/01/21 Recorded SARS-CoV-2 (COVID-19) mRNA BNT-162b2 vac 12/10/20 Recorded Influenza Virus Vaccine (oldterm) 06/13/19 Recorde d pneumococcal 13-valent vaccine 10/03/16 Given Fluvirin (oldterm) 05/23/11 Given Tet/diphth/pertussis, acel (oldterm) 05/23/11 Give n FluLaval (oldterm) 7 06/09/10 Given 1Result Comment: [employer] [id number] 27feblo 2Result Comment: [facility] [place]: [id number] 3Admin Note: By Dr Granado 4Admin Note: Dr Granado 5Admin Note: [facility] 6Result Comment: Lot [id number] ([id number]) [id number] 7Admin Note: dr hall Medications Alcohol Pads [...] Refills, Maintenance, 10/03/23 1:26:00 EST, XL Tablet, [facility]/pharmacy #[id number], Partial fill upon patient request if [...] 10/03/23 1:26:00 EST, Route to Pharmacy Electronically, [facility]/pharmacy #[id number], Partial fill upon patient request if the prescription is for a... Start Date: 10/03/23 Status: Ordered finasteride 5 mg oral tablet 1 tablet = 5 mg, By Mouth, Daily, blister pack, # 90 tablet, 0 Refills, Maintenance, 10/03/23 1:27:00 EST, Tablet, [facility]/pharmacy #[id number], Partial fill upon patient request if [...] 10/03/23 1:27:00 EST, Route to Pharmacy Electronically, [facility]/pharmacy #[id number], Partial fill upon patient request if the prescription is for a schedule I... Start Date: 10/03/23 Status: Ordered metoprolol succinate 200 mg oral capsule, extended release 1 capsule = 200 mg, By Mouth, Daily, blister pack, # 90 capsule, 0 Refills, Maintenance, 10/03/23 1:28:00 EST, ER Capsule, [facility]/pharmacy #[id number], Partial fill upon patient request if the prescription isfor a schedule II opioid drug., 172, cm, 10/02/23 7... Start Date: 10/03/23 Status: Ordered Myrbetriq 50 mg oral tablet, extended release 1 tablet = 50 mg, By Mouth, Daily, blister pack do not crush or chew, # 90 tablet, 0 Refills, Maintenance, 10/03/23 1:28:00 EST, ER Tablet, [facility]/pharmacy #[id number], Partial fill upon patient request if the prescription is for a schedule II opioid drug., 17... Start Date: 10/03/23 Status: Ordered ondansetron 8 mg oral tablet, disintegrating 1 tablet = 8 mg, By Mouth, 3 times a day, PRN Nausea & Vomiting, # 9 tablet, 0 Refills, Maintenance, 01/14/24 20:00:00 EDT, DIS Tablet, [facility]/pharmacy #[id number], Partial fill upon patient request if [...] 10/03/23 Stop Date: 11/02/23 Status: Ordered Pen [place], 31 G x 5 mm BD Ultra [...] 0 Refills, Maintenance, 10/03/23 1:28:00 EST, Tablet, [facility]/pharmacy #[id number], Partial fill upon patient request if the prescription is for a schedule II opioid drug., 172, cm, 10/02/23 7:02:00... Start Date: 10/03/23 Status: Ordered tamsulosin 0.4 mg oral capsule 0.4 mg, 1, capsule, By Mouth, Daily, blister pack, # 90 capsule, Refills 0, Tot. Refills 0, Maintenance, 10/03/23 1:29:00 EST, Route to Pharmacy Electronically, [facility]/pharmacy #[id number], Partial fill upon patient request if [...] 0 Refills, Maintenance, 10/03/23 1:27:00 EST, Solution, [facility]/pharmacy #0693, Partial fill upon patient request if [...] artery disease Confirmed Active Depression Confirmed Active Insulin long-term use Confirmed Active [...] Exam Date Time Procedure Performing Provider Status 01/19/24 9:[address] Abd/Pelvis W/ IV Contrast Only Buffy Loza; Auth (Verified) Notes: (CT Abd/Pelvis W/ IV Contrast Only) Reason For Exam: LLQ abdominal pain;Other: RESULT: CT Abd/Pelvis W/ IV Contrast Only CT Abd/Pelvis W/ IV Contrast Only Hx of Present Illness: abd pain x 1 wk and seen lasr mt week for same but problem returned; Reason:Other:; LLQ abdominal pain; Clinical Question(s): Obstruction TECHNIQUE: Spiral CT through the abdomen and pelvis with IV contrast formatted in 3 planes. 100 cc of Omnipaque 300 was administered intravenously. This study was performed without oral contrast. Weight-based protocol using automatic tube modulation was used to optimize exposure parameters. CTDIvol Body: 14.10 mGy, DLP Body: 732 mGy*cm. COMPARISON: CT 03/28/2017. FINDINGS: [employer]el As[employer]er View Findings, Lines and Tubes: None. Visualized Chest: Lung bases are clear. No pleural effusion. The heart is normal in size. No pericardial effusion. Diaphragm: Normal. Liver: Normal. Gallbladder: Cholelithiasis. Bile ducts: No biliary ductal dilation. Spleen: Normal. Pancreas: Normal. Adrenal glands: Normal. Kidneys and ureters: No hydronephrosis, stones, or suspicious masses. Bladder: Underdistended: Diffuse wall thickening.. Reproductive organs: Unremarkable. Stomach, small bowel, and large bowel: The stomach is normal. The small and large bowel are normal in caliber without evidence of obstruction. Moderate colonic diverticulosis without associated inflammatory changes. Appendix: Surgically absent. Peritoneum and retroperitoneum: No ascites or pneumoperitoneum. No omental or mesenteric lesions. Lymph nodes: No enlarged lymph nodes. Blood vessels: Mild vascular calcifications but no aneurysm. No evidence of venous thrombosis. Abdominal and pelvic wall: Small bilateral fat-containing inguinal hernias. Bones: No acute abnormality. IMPRESSION: 1. Mild nonspecific thickening of the bladder wall, which may be artifactually accentuated by non-distended state but cannot exclude cystitis. Correlate clinically for urinary tract infection. 2. Colonic diverticulosis, without acute diverticulitis. 3. Cholelithiasis, without evidence of acute cholecystitis. I have personally reviewed the images and I agree with this report. WSN: [id number] Ordering Physician: Harleen Quiles Dictated By: Justin Mitchell MD Dictated Date/Time: 01/19/24 9:47 pm Reviewed By: Cameron Trinidad MD Signed By: Cameron Trinidad MD Signed Date/Time: 01/19/24 9:52 pm Transcribed By: ALEXUS Transcribed Date/Time: 01/19/24 9:32 pm Vital Signs Most recent to oldest [Reference Range]: 1 2 Height 175 cm (01/19/24 7:31 PM) Weight 82 kg (01/19/24 7:31 PM) Oxygen Saturation [94-100 %] 99 % (01/19/24 10:37 PM) 98 % (01/19/24 7:31 PM) Pulse Rate [55-90 bpm] 71 bpm (01/19/24 10:37 PM) 74 bpm (01/19/24 7:31 PM) Body Mass Index [18.5-24.99 kg/m2] 26.78 kg/m2 *H* (01/19/24 7:31 PM) Blood Pressure [90-138/55-84 mm Hg] 167/ 101mm Hg *H* (01/19/24 10:37 PM) 162/96mm Hg *H* (01/19/24 7:31 PM) Respiratory Rate [16-30 br/min] 18 br/mi n (01/19/24 10:37 PM) 16 br/min (01/19/24 7:31 PM) Temperature [96.8-100.4 DegF] 97.9 DegF (01/19/24 10:37 PM) 97.7 DegF (01/19/24 7:31 PM) Mode of Delivery (Oxygen) Room air (01/19/24 10:37 PM) Room air (01/19/24 7:31 PM) Blood pressure sites Arm, left (01/19/24 10:37 PM) Arm, left (01/19/24 7:31 PM) Temperature Route Oral (01/19/24 10:37 PM) Oral (01/19/24 7:31 PM) Dry Weight 82 kg (01/19/24 7:31 PM) Weight Obtained Via Standing scale (01/19/24 7:31 PM) Dry Weight Obtained Via Standing scale (01/19/24 7:31 PM) Social History Social History Type Response Smoking Status Former smoker, quit more than 30 days ago entered on: 12/29/18 Sex Note * Kb TMI, Harleen: PERFORM Event Display: Patient Education Leaflets Authored Date: Unknown Causes of Abdominal Pain(Adult) ?? [id number] Unknown Causes of Abdominal Pain(Adult) The exact cause of your belly (abdominal) pain is not clear. Your exam and tests don't suggest a dangerous cause at this time. This does not mean that this is something to worry about. Everyone likesto know the exact cause of the problem. But sometimes with belly pain, there is no clear-cut cause,and this could be a good thing. Your symptoms can be treated, and you should feel better.?? Your condition does not seem serious now. But sometimes the signs of a serious problem may take more time to appear. For this reason,??it's important for you to watch for any new symptoms, problems,??or worsening of your condition. Over the next few days, the abdominal pain may come and go. Or it may be constant. Other common symptoms can include nausea and vomiting. Sometimes it can be difficult to tell if you feel nauseous. You may just feel bad and not connect that feeling to nausea. Constipation, diarrhea, and a fever maygo along with the pain. The pain may continue even if treated correctly over the following days. Depending on how things go, sometimes the cause can become clear and you may need more??or different treatment. You may also need other evaluations, medicines, or tests. Home care Your healthcare provider may prescribe medicine for pain, symptoms, or an infection. ??Follow the healthcare provider's instructions for taking these medicines. General care ??? Rest as much as you can until your next exam. No strenuous activities. ??? Try to not do anything that may have caused your symptoms. This might be not taking any medicines unless otherwise directed by your healthcare provider. It might be not eating certain foods or doing certain activities. ??? Find positions that ease discomfort. A small pillow placed on your belly may help relieve pain. ??? Something warm on your belly such as a heating pad may help, but be careful not to burn yourself. Diet ??? Don???t??force yourself to eat, especially if having cramps, vomiting, or diarrhea. ??? Water is important so you don't get dehydrated. Soup may also be good. Sports drinks may also help, especially if they are not too acidic. Don't drink sugary drinks as this can make things worse. Take liquids in small amounts. Don???t??guzzle them. ??? Caffeine sometimes makes the pain and cramping worse. ??? Don???t take??dairy products if you have vomiting or diarrhea. ??? Don't eat large amounts at a time. Eat several small meals during the day instead of 2 or 3 larger meals. Wait a few minutesbetween bites. ??? Eat a diet low in fiber (called a low-residue diet). Foods allowed include refined breads, white rice, fruit and vegetable juices without pulp, tender meats. These foods will pass more easily through the intestine. ??? Don???t have??whole-grain foods, whole fruits and vegetables,meats, seeds and nuts, fried or fatty foods, dairy, alcohol and spicy foods until your symptoms go away. ?? Follow-up care Follow up with your healthcare provider, or as advised, if your pain does not begin to improve in the next 24 hours. ?? Call 911 Call?? 911 if any of these occur: ??? Trouble breathing ??? Confusion ??? Fainting or loss of consciousness ??? Rapid heart rate ??? Seizure ?? When to seek medical advice Call your healthcare provider right away if any of these occur: ??? Pain gets worse or moves to theright lower abdomen ??? New or worsening vomiting or diarrhea ??? Swelling of the abdomen ??? Unable to pass stool for more than??3 days ??? Fever of 100.4??F (38??C) or higher, or as directed by your healthcare provider ??? Blood in vomit or bowel movements (dark red or black color) ??? Yellow color of eyes and skin (jaundice) ??? Weakness, dizziness ??? Chest, arm, back, neck, or jaw pain ??? Can't keep down medicines, liquids, or water because of too much vomiting ??? If you have a vagina: unexpected vaginal bleeding or missed period ?? Last Reviewed Date: 2021 ?? 4521-7621 [employer]. All rights reserved. This information is not intended as a substitute for professional medical care. Always follow your healthcare professional's instructions. ?? Patient Care team information Care Team Personnel Name: Nuzhat Sainz Position: [facility] Outreach Member Role: Lifetime Consulting Physician Name: Janel Mead RN Position: [facility] RN Member Role: Primary Care Nurse Name: Maritza CABEZAS, Bailey Goss Position: [facility] Physician - Primary Care Member Role: PCP Address: Address: [address] [place] [address]- Name: Derik Gaines MD Position: [facility] Renal MD Member Role: Lifetime Consulting Physician Address: Address: [address] [place], [place] [address] [place] [address]- Name: Kiana Castelan [place] Position: [facility] HAMILTON CARLOS Member Role: Lifetime Consulting Physician Name: Bayron Brandt DO Position: [facility] Renal Member Role: Lifetime Consulting Physician Address: Address: [address] [place], [place] [address]E [facility] [place] [address]- Name: Amie Caldwell PharmD Position: [facility] Associate Professional Member Role: Lifetime Consulting Provider Address: Address: [address] [facility] [place] [address]- Name: Eric Garcia RN Position: [facility] RN Member Role: Primary Care Nurse Name: Jaclyn Schulte RN Position: [facility] RN Member Role: Primary Care Nurse Name: Kavon Liu MD Position: Reference Physician Member Role: Lifetime Consulting Physician Address: Address: [address] [place] [address] [address] [facility] [place] [address]- Care Team Related Persons Name: DANA PERALES Address: home [address] [place] [address] Name: BO PERALES Address: home [address] [place] [address] Name: DANA BALTAZAR Address: home [address] [place] [address] Name: NALDO AVALOS Address: home [address] [place] [address] Name: NALDO BARNARD Address: home [address] [place] [address]
--- OUTSIDE RECORDS SUMMARY | 2024-06-17 06:03 | XMS_ITS | Continuity of Care Document ---
Author Organization [facility] Address [address] [place] [address]- Care Team Providers Care Printer Slotter Operator Name Role Phone Maritza CABEZAS, Bailey Goss Primary Care Physic pierre [facility]counter [facility] Date[facility]s): 11/11/23 - 11/18/23 [facility] [address] [place] [address]- Attending Physician: Bailey Salas MD Allergies, Adverse Reactions, Alerts No Known Allergies Immunizations Given and Recorded Vaccine Date Status Refusal Reason zoster vaccine, inactivated 04/19/23 Recorded tetanus/diphtheria/pertussis, acel(Tdap) 03/28/23 Given pneumococcal 23-valent vaccine 03/28/23 Given pneumococcal 23-valent vaccine 1 05/28/09 Given [id number] 12y+ bivalent booster vax 08/28/22 Recorded influenza [...] inactivated 6 05/28/09 Gi isidra SARS-CoV-2 mRNA (woxjuak-aqro-bqebu) vax 10/18/21 Given SARS-CoV-2 (COVID-19) mRNA BNT-162b2 vac 01/01/21 Recorded SARS-CoV-2 (COVID-19) mRNA BNT-162b2 vac 12/10/20 Recorded Influenza Virus Vaccine (oldterm) 06/13/19 Recorde d pneumococcal 13-valent vaccine 10/03/16 Given Fluvirin (oldterm) 05/23/11 Given Tet/diphth/pertussis, acel (oldterm) 05/23/11 Give n FluLaval (oldterm) 7 06/09/10 Given 1Result Comment: [employer] [id number] 27feblo 2Result Comment: [facility]: 00702-018-56 3Admin Note: By Dr Granado 4Admin Note: Dr Granado 5Admin Note: [facility] 6Result Comment: Lot [id number] (E) [id number] 7Admin Note: dr hall Medications Alcohol Pads [...] Refills, Maintenance, 10/03/23 1:26:00 EST, XL Tablet, [facility]/pharmacy #[id number], Partial fill upon patient request [...] 10/03/23 1:26:00 EST, Route to Pharmacy Electronically, [facility]/pharmacy #[id number], Partial fill upon patient request if the prescription is for a... Start Date: 10/03/23 Status: Ordered finasteride 5 mg oral tablet 1 tablet = 5 mg, By Mouth, Daily, blister pack, # 90 tablet, 0 Refills, Maintenance, 10/03/23 1:27:00 EST, Tablet, [facility]/pharmacy #[id number], Partial fill upon patient request [...] 10/03/23 1:27:00 EST, Route to Pharmacy Electronically, [facility]/pharmacy #[id number], Partial fill upon patient request if the prescription is for a schedule I... Start Date: 10/03/23 Status: Ordered metoprolol succinate 200 mg oral capsule, extended release 1 capsule = 200 mg, By Mouth, Daily, blister pack, # 90 capsule, 0 Refills, Maintenance, 10/03/23 1:28:00 EST, ER Capsule, [facility]/pharmacy #[id number], Partial fill upon patient request if the prescription isfor a schedule II opioid drug., 172, cm, 10/02/23 7... Start Date: 10/03/23 Status: Ordered Myrbetriq 50 mg oral tablet, extended release 1 tablet = 50 mg, By Mouth, Daily, blister pack do not crush or chew, # 90 tablet, 0 Refills, Maintenance, 10/03/23 1:28:00 EST, ER Tablet, [facility]/pharmacy #[id number], Partial fill upon patient request [...] 10/03/23 Stop Date: 11/02/23 Status: Ordered Pen [place], 31 G x 5 mm BD Ultra [...] 0 Refills, Maintenance, 10/03/23 1:28:00 EST, Tablet, [facility]/pharmacy #[id number], Partial fill upon patient request if the prescription is for a schedule II opioid drug., 172, cm, 10/02/23 7:02:00... Start Date: 10/03/23 Status: Ordered tamsulosin 0.4 mg oral capsule 0.4 mg, 1, capsule, By Mouth, Daily, blister pack, # 90 capsule, Refills 0, Tot. Refills 0, Maintenance, 10/03/23 1:29:00 EST, Route to Pharmacy Electronically, [facility]/pharmacy #[id number], Partial fill upon patient request [...] cm, ... Start Date: 10/03/23 Status: Ordered Trulicity Pen [...] Confirmed Active Dementia Confirmed Active 1mild 2snoring Vital Signs Most recent to oldest [Reference Range]: 1 Height 172 cm (11/11/23 3:41 PM) Weight 83.1 kg (11/11/23 3:41 PM) Oxygen Saturation [94-100 %] 97 % (11/11/23 3:41 PM) Pulse Rate [55-90 bpm] 73 bpm (11/11/23 3:41 PM) Body Mass Index [18.5-24.99 kg/m2] 28.09 kg/m2 *H* (11/11/23 3:41 PM) Blood Pressure [90-138/55-84 mm Hg] 132/ 82mm Hg (11/11/23 3:41 PM) Mode of Delivery (Oxygen) Room air (11/11/23 3:41 PM) Blood pressure sites Arm, right (11/11/23 3:41 PM) Weight Obtained Via Standing scale (11/11/23 3:41 PM) Social History Social History Type Response Smoking Status Former smoker, quit more than 30 days ago entered on: 12/29/18 Sex Patient Care team information Care Team Personnel Name: Nuzhat Sainz Position: [facility] Outreach Member Role: Lifetime Consulting Physician Name: Janel Mead RN Position: [facility] RN Member Role: Primary Care Nurse Name: Maritza CABEZAS, Bailey Goss Position: [facility] Physician - Primary Care Member Role: PCP Address: Address: [address] [place] [address]- Name: Derik Gaines MD Position: [facility] Renal MD Member Role: Lifetime Consulting Physician Address: Address: [address] [place], [place] [address] [place], [place] [address] Name: Kiana Castelan [place] Position: [facility] HAMILTON CARLOS Member Role: Lifetime Consulting Physician Name: Bayron Brandt DO Position: [facility] Renal MD Member Role: Lifetime Consulting Physician Address: Address: [address] [facility] [place] [address]- [place] Name: Amie Caldwell PharmD Position: [facility] Associate Professional Member Role: Lifetime Consulting Provider Address: Address: [address] [facility] [place] [address]- [place] Name: Eric Garcia RN Position: S RN Member Role: Primary Care Nurse Name: Jaclyn Schulte RN Position: S RN Member Role: Primary Care Nurse Name: Kavon Liu MD Position: Reference Physician Member Role: Lifetime Consulting Physician Address: Address: [address] [place] [address] [address] [facility] [place] [address]- Care Team Related Persons Name: DANA PERALES Address: [address] [address] Name: BO PERALES Address: home [address] [address] Name: DANA BALTAZAR Address: home [address] [address] Name: NALDO AVALOS Address: home [address] [place] [address] Name: NALDO BARNARD Address: home [address] [place] [address]
--- OUTSIDE RECORDS SUMMARY | 2024-06-17 06:03 | XMS_ITS | Continuity of Care Document ---
Author Organization [facility] Address [address] [place] [address]- Care Team Providers Care Mutuel Cashier Name Role Phone Maritza CABEZAS, Bailey Goss Primary Care Physic pierre Encounter [facility] Date(s): 03/29/21 - 04/28/21 [facility] [address] [place] [address]- [place] Allergies, Adverse Reactions, Alerts Substance Reaction Severity [...] 3Admin Note: [facility] 4Result Comment: Lot [id number] (E) [id number] 5Admin Note: dr hall 6Result Comment: [employer] [id number] 27feblo Medications amlodipine 10 mg oral tablet 10 mg, 1, tablet, By Mouth, Daily, pharmacy wants 90 days, # 90 tablet, Refills 1, Tot. Refills 1, Maintenance, 07/10/16 21:05:57, Route to Pharmacy Electronically, [id number], [facility]/pharmacy #[id number] Start Date: 07/10/16 Stop Date: 01/06/17 Status: Ordered aspirin 81 mg oral enteric coated tablet 1 tablet = 81 mg, By Mouth, Daily, # 30 tablet, 3 Refills, Maintenance Start Date: 05/27/09 Status: Ordered BD UF RADHA PEN NEEDLE [id number] See Instructions, # 120 Unknown, Refills 5 Tot. Refills 5, USE DAILY, [facility]/pharmacy #[id number] Start Date: 07/10/19 Status: Ordered [...] tablet, 1 Refills, Maintenance, 04/13/21 15:06:00 EDT, [facility]/pharmacy #[id number], 90, 1 tablet By Mouth Every 24 hours, 170, cm, 03/20/21 9:07:00 EDT, Height, 92, kg, 09/14/19 14:18:00 EST, Dry Weight Start Date: 04/13/21 Status: Ordered Crestor 40 mg oral tablet 1 tablet = 40 mg, By Mouth, Daily, # 90 tablet, 3 Refills, Maintenance, 08/30/20 8:19:00 EST, Tablet, [facility]/pharmacy #[id number], 170, cm, 03/29/20 10:57:00 EDT, [...] CHECK BLOOD SUGARS 3 TIMES A DAY, [facility]/pharmacy #[id number] Start Date: 03/10/19 Status: Ordered [...] Maintenance, 07/07/18 11:08:24 EDT,Route to Pharmacy Electronically, [id number], [facility]/pharmacy #[id number] Start Date: 07/07/18 Status: Ordered [...] 05/04/21 16:48:00 EDT, 04/20/21 16:48:00 EDT, Ointment, [facility]/pharmacy #[id number], Partial fill upon patient request [...] TYPE 2, 08/12/17 12:25:00, Compound Start Date: 12/4/17 Status: Ordered tamsulosin 0.4 mg oral capsule See Instructions, # 90 capsule, TAKE 1 CAPSULE BY MOUTH EVERY DAY, [facility]/pharmacy #[id number] Start Date: 04/06/19 Status: Ordered tamsulosin 0.4 mg oral capsule See Instructions, TAKE 1 CAPSULE BY MOUTH EVERY DAY, # 90 capsule, Refills 1, Tot. Refills 1, Soft Stop, 03/08/21 15:59:00 EDT, Instructions Replace Required Details, Route to Pharmacy Electronically, [facility]/pharmacy #[id number], 170, cm, 02/23/21 11:12:00 EDT... [...] 5 Refills, Maintenance, 04/05/21 12:10:00 EDT, Solution, [facility]/pharmacy #[id number], Partial fill upon patient request if the prescription is for a schedule II opioid drAlysha. Start Date: 04/05/21 Status: Ordered Problem List [...]
--- OUTSIDE RECORDS SUMMARY | 2024-06-17 06:03 | XMS_ITS | Continuity of Care Document ---
Author Organization [facility] Address [address] [place] [address]- Care Team Providers Care Cnc Manager Name Role Phone Geoff Glover DO Primary Care Physician [phone] [place] [facility] [place] 02/18/20 - 06/17/20 [facility] [address] [place] [address] [facility] Attending Physician: Grabiel Davidson MD Admitting Physician: Grabiel Davidson MD Referring Physician: Geoff Glover DO Allergies, Adverse [...] 3Admin Note: [facility] 4Result Comment: Lot [id number] (E) [id number] 5Admin Note: dr hall 6Result Comment: [employer] [id number] L287x 27feblo Medications amlodipine 10 mg oral tablet 10 mg, 1, tablet, By Mouth, Daily, pharmacy wants 90 days, # 90 tablet, Refills 1, Tot. Refills 1, Maintenance, 07/10/16 21:05:57, Route to Pharmacy Electronically, [id number], [facility]/pharmacy #[id number] Start Date: 07/10/16 Stop Date: 01/06/17 Status: Ordered aspirin 81 mg oral enteric coated tablet 1 tablet = 81 mg, By Mouth, Daily, # 30 tablet, 3 Refills, Maintenance Start Date: 05/27/09 Status: Ordered BD UF RADHA PEN NEEDLE [id number] See Instructions, # 120 Unknown, Refills 5 Tot. Refills 5, USE DAILY, [facility]/pharmacy #[id number] Start Date: 07/10/19 Status: Ordered buPROPion 150 mg/24 hours (XL) oral tablet, extended release 1 tablet, By Mouth, Every 24 hours, # 90 tablet, 1 Refills, Maintenance, 06/13/20 8:06:00 EDT, [facility] STORE [id number], 90, TAKE 1 TABLET BY MOUTH EVERY [...] CHECK BLOOD SUGARS 3 TIMES A DAY, [facility]/pharmacy #[id number] Start Date: 03/10/19 Status: Ordered Freestyle [...] Maintenance, 07/07/18 11:08:24 EDT,Route to Pharmacy Electronically, [id number], [facility]/pharmacy #[id number] Start Date: 07/07/18 Status: Ordered metFORMIN 500 mg oral tablet, extended release 2 tablet = 1,000 mg, By Mouth, Daily, # 180 tablet, 1 Refills, Maintenance, 11/09/19 16:29:00 EST, [facility]/pharmacy #[id number], D/C RX on file 1000mg not [...] TAKE 1 CAPSULE BY MOUTH EVERY DAY, [facility]/pharmacy #[id number] Start Date: 04/06/19 Status: Ordered tamsulosin 0.4 mg oral capsule See Instructions, TAKE 1 CAPSULE BY MOUTH EVERY DAY, # 90 capsule, Refills 1, Tot. Refills 1, Soft Stop, 02/09/20 14:57:00 EDT, Instructions Replace Required Details, Route to Pharmacy Electronically, [facility]/pharmacy #[id number], 170.5, cm, 01/31/20 10:18:00 E... Start Date: 02/09/20 Status: Ordered Testopel = 300 mg, Subcutaneous [...] E11.65, # 18 mL, 5 Refills, Maintenance, 03/29/20 11:10:00 EDT, [facility]/pharmacy #[id number], 170, cm, 03/29/20 10:57:00 EDT, Height, 92, kg, 09/14/19 14:18:00 EST, Dry Weight Start Date: 03/29/20 Status: Ordered Triumeq oral tablet 1 tablet, By Mouth, Daily, # 30 tablet, 0 Refills, Maintenance, 03/26/15 23:03:11, Tablet Start Date: 03/26/15 Status: Ordered Trulicity Pen 1.5 mg/0.5 mL subcutaneous solution 0.5 mL = 1.5 mg, Subcutaneous Injection, Every week, Take 1.5mg once weekly. E11.65. 90-day supply,# 6.5 mL, 3 Refills, Maintenance, 09/18/19 15:11:00 EST, Solution, [facility]/pharmacy #[id number], 170.5, cm, 09/18/19 14:43:00 EST, Height, 92, kg, 01/06/20 14:18... Start Date: 09/18/19 Status: Ordered Problem [...]
--- OUTSIDE RECORDS SUMMARY | 2024-06-17 06:03 | XMS_ITS | Continuity of Care Document ---
Author Organization [facility] Address [address] [place] [address]- Care Team Providers Care Field Contact Technician Name Role Phone Maritza CABEZAS, Bailey Goss Primary Care Physic pierre Encounter [facility] Date(s): 09/26/22 - 10/03/22 [facility] [address] [place] [address]- [place] Encounter Diagnosis Polycythemia(Discharge Diagnosis) - 09/26/22 Dementia(Discharge Diagnosis) - 09/26/22 CKD (chronic kidney disease) stage 3, GFR 30-59 ml/min(Discharge Diagnosis) - 09/26/22 HIV(Discharge Diagnosis) - 09/26/22 Rotator cuff impingement syndrome of right shoulder(Discharge Diagnosis) - 09/26/22 Attending Physician: Maritza CABEZAS, Bailey Goss Allergies, Adverse Reactions, Alerts No Known Allergies Immunizations Given and Recorded Vaccine Date Status Refusal Reason SARS-CoV-2 mRNA (mkneeoc-hruw-bgytp) vax 10/18/21 Given influenza virus vaccine, inactivated [...] Given 1Result Comment: [facility]: 21308-625-23 2Admin Note: By Dr Granado 3Admin Note: Dr Granado 4Admin Note: [facility] CLIN[facility] 5Result Comment: Lot [id number] (E) [id number] 6Admin Note: dr hall 7Result Comment: [employer] [id number] L287x 27feblo Medications amLODIPine 2.5 mg oral tablet 2.5 mg, 1, tablet, By Mouth, Daily, # 90 tablet, Refills 3, Tot. Refills 3, Maintenance, 10/03/22 15:00:00 EST, Route to Pharmacy Electronically, [facility]/pharmacy #[id number], Partial fill upon patient requestif the prescription is for a schedule II opioid sandip... Start Date: 10/03/22 Status: Ordered Aricept 5 mg oral tablet 5 mg, 1, tablet, By Mouth, Daily at bedtime, For memory loss, # 90 tablet, Refills 3, Tot. Refills 3, Maintenance, 08/17/22 17:19:00 EST, Route to Pharmacy Electronically, [facility]/pharmacy #[id number], Partialfill upon patient request if the prescription is fo... Start Date: 08/17/22 Status: Ordered aspirin 81 mg oral delayed release tablet = 81 mg, By Mouth, Daily, # 30 tablet, 0 Refills, Maintenance, 11/10/21 15:20:00 EST, EC Tablet, [facility]/pharmacy #[id number], Partial fill upon patient [...] tablet, 1 Refills, Maintenance, 04/20/22 13:02:00 EDT, [facility]/pharmacy #0693, 1 tablet By Mouth [...] Stop 11/05/22 10:20:00EST, 11/10/21 10:20:00 EST, Tablet, [facility]/pharmacy #[id number], 175, cm, 10/27/21 13:06:00 [...] each, 8 Refills, Maintenance, 04/17/22 12:47:00 EDT, [facility]/pharmacy #[id number], Partial fill upon patient request if the prescription is for... Start Date: 04/17/22 Stop Date: 01/12/23 Status: Ordered Pen [place], 31 G x 5 mm BD Ultra [...] Replace Required Details, Route to Pharmacy Electronically, [facility]/pharmacy #[id number], 175, cm, 02/06/22 16:03:00 EDT... Start Date: 04/20/22 Status: Ordered Testopel = 300 mg, Subcutaneous Infusion, Every 3 months, 0 Refills, Maintenance, 03/26/15 23:08:01 Start Date: 03/26/15 Status: Ordered Tresiba FlexTouch 200 units/mL subcutaneous solution See Instructions, Take 22 units daily at lunch. E11.65, # 9 mL, 10 Refills, Maintenance, 05/28/22 13:10:00 EDT, [facility]/pharmacy #[id number], 175, cm, 02/06/22 16:03:00 EDT, Height, 78.5, kg, 10/10/21 0:43:00 EST, Dry Weight Start Date: 05/28/22 Status: Ordered Trulicity Pen 3 mg/0.5 mL subcutaneous solution 0.5 mL = 3 mg, Subcutaneous Injection, Every week, Take 3mg once weekly. E11.65., # 2 mL, 5 Refills, Maintenance, 02/02/22 10:33:00 EDT, Solution, [facility]/pharmacy #[id number], Partial fill upon patient [...] stage 3, GFR 30-59 ml/min Discharge Diagnosis 09/26/22 HIV Discharge Diagnosis 09/26/22 Rotator cuff impingement syndrome of right shoulder Discharge Diagnosis 09/26/22 Polycythemia Discharge Diagnosis 09/26/22 Dementia Discharge Diagnosis 09/26/22 Vital Signs Most recent to oldest [Reference Range]: 1 Height 175 cm (09/26/22 2:03 PM) Weight 82.2 kg (09/26/22 2:03 PM) Oxygen Saturation [94-100 %] 99 % (09/26/22 2:03 PM) Pulse Rate [55-90 bpm] 70 bpm (09/26/22 2:03 PM) Body Mass Index [18.5-24.99 kg/m2] 26.84 kg/m2 *H* (09/26/22 2:03 PM) Blood Pressure [90-138/55-84 mm Hg] 133/ 88mm Hg (09/26/22 2:03 PM) Blood pressure sites Arm, left (09/26/22 2:03 PM) Weight Obtained Via Standing scale (09/26/22 2:03 PM) Social History Social History Type Response Smoking Status Former smoker, quit more than 30 days ago entered on: 12/29/18 Sex Patient Care team information Care Team Personnel Name: Nuzhat Sainz Position: [facility] Outreach Member Role: Lifetime Consulting Physician Name: Maritza CABEZAS, Bailey Goss Position: [facility] Primary Care Physician Member Role: PCP Address: Address: [address] [place] [address]- Name: Derik Gaines MD Position: [facility] Renal MD Member Role: Lifetime Consulting Physician Address: Address: [address] [place], [place] [address] [place], [place] [address] Name: Jazmin Florez RN Position: [facility] NORA Supv Member Role: Primary Care Nurse Name: Kiana Castelan Position: [facility] Outreach Member Role: Lifetime Consulting Physician Name: Bayron Brandt DO Position: [facility] Renal MD Member Role: Lifetime Consulting Physician Address: Address: [address] [facility] [address] [facility] [place] [address]- [place] Name: Amie Caldwell PharmD Position: [facility] Associate Professional Member Role: Lifetime Consulting Provider Address: Address: [address] [facility] [place] [address]- [place] Name: Eric Garcia RN Position: S RN Member Role: Primary Care Nurse Name: Jaclyn Schulte RN Position: [facility] RN Member Role: Primary Care Nurse Name: Kavon Liu MD Position: Reference Physician Member Role: Lifetime Consulting Physician Address: Address: [address] [facility] [address] [facility] [place] [address]- Care Team Related Persons Name: DANA PERALES Address: home [address] [place] [address] Name: BO PERALES Address: home [address] [place] [address] Name: DANA BALTAZAR Address: home [address] [place] [address] Name: NALDO AVALOS Address: home [address] [place] [address] Name: NALDO BARNARD Address: home [address] [place] [address]
--- OUTSIDE RECORDS SUMMARY | 2024-06-17 06:03 | XMS_ITS | Continuity of Care Document ---
[facility] Address [address] [place] [address]- Care Team Providers Care Electric Deicer Assembler Name Role Phone Maritza CABEZAS, Bailey Goss Primary Care Physic pierre Encounter [facility] Date(s): 02/23/23 - 04/04/[address] [address] Attending Physician: Jorge Velasquez MD Admitting Physician: Jorge Velasquez MD Referring Physician: Jorge Velasquez MD Allergies, Adverse Reactions, Alerts No Known Allergies Immunizations Given and Recorded Vaccine Date Status Refusal Reason tetanus/diphtheria/pertussis, acel(Tdap) 03/28/23 Given pneumococcal 23-valent vaccine 03/28/23 Given pneumococcal 23-valent vaccine 1 05/28/09 Given SARS-CoV-2 mRNA (oeekhdu-flwr-lwzww) vax 10/18/21 Given influenza virus vaccine, inactivated [...] FluLaval (oldterm) 7 06/09/10 Given 1Result Comment: [employer] [id number] 27feblo 2Result Comment: [facility]: [id number] 3Admin Note: By Dr Granado 4Admin Note: Dr Granado 5Admin Note: [facility] 6Result Comment: Lot [id number] (E) [id number] 7Admin Note: dr hall Medications amLODIPine 2.5 mg oral tablet 2.5 mg, 1, tablet, By Mouth, Daily, # 90 tablet, Refills 3, Tot. Refills 3, Maintenance, 10/03/22 15:00:00 EST, Route to Pharmacy Electronically, [facility]/pharmacy #[id number], Partial fill upon patient requestif [...] 1 Refills, Maintenance, 04/20/22 13:02:00 EDT, [facility]/pharmacy #[id number], 1 tablet By Mouth Every [...] 1 Refills, Maintenance, 03/09/23 4:33:00 EDT, Tablet, [facility]/pharmacy #[id number], 175, cm, 12/28/22 15:56:00 EDT, [...] each, 8 Refills, Maintenance, 01/12/23 12:47:00 EDT, [facility]/pharmacy #[id number], Partial fill upon patient request if th... Start Date: 01/12/23 Stop Date: 10/09/23 Status: Ordered Pen [place], 31 G x 5 mm BD Ultra [...] Required Details, Route to Pharmacy Electronically, [facility]/pharmacy #[id number], 175, cm, 10/03/22 14:39:00 EST... Start Date: 10/29/22 Status: Ordered Testopel = 300 mg, Subcutaneous Infusion, Every 3 months, 0 Refills, Maintenance, 03/26/15 23:08:01 Start Date: 03/26/15 Status: Ordered Tresiba FlexTouch 200 units/mL subcutaneous solution See Instructions, Take 22 units daily at lunch. E11.65, # 9 mL, 10 Refills, Maintenance, 12/31/22 11:09:00 EDT, [facility]/pharmacy #[id number], 175, cm, 12/28/22 15:56:00 EDT, Height, 81.65, kg, 06/19/22 9:04:00EDT, Dry Weight Start Date: 12/31/22 Status: Ordered Trulicity Pen 3 mg/0.5 mL subcutaneous solution 0.5 mL = 3 mg, Subcutaneous Injection, Every week, Take 3mg once weekly. E11.65., # 2 mL, 5 Refills, Maintenance, 10/18/22 16:22:00 EST, Solution, [facility], Partial fill upon patient [...] Care Team Personnel Name: Nuzhat Sainz Position: [facility] Outreach Member Role: Lifetime Consulting Physician Name: Maritza CABEAZS, Bailey Goss Position: [facility] Physician - Primary Care Member Role: PCP Address: Address: [address] [place] [address]- Name: Derik Gaines MD Position: [facility] Renal MD Member Role: Lifetime Consulting Physician Address: Address: [address] [place], [place] [address]E [facility] [place] [address]- Name: Jazmin Florez RN Position: [facility] RN Supv Member Role: Primary Care Nurse Name: Kiana Castelan Position: [facility] Outreach Member Role: Lifetime Consulting Physician Name: Bayron Brandt DO Position: [facility] Renal MD Member Role: Lifetime Consulting Physician Address: Address: [address] [place], [place] [address] [facility] [place] [address]- Name: Amie Caldwell PharmD Position: [facility] Associate Professional Member Role: Lifetime Consulting Provider Address: Address: [address] [facility] [place] [address]- [place] Name: Eric Garcia RN Position: [facility] RN Member Role: Primary Care Nurse Name: Jaclyn Schulte RN Position: [facility] RN Member Role: Primary Care Nurse Name: Kavon Liu MD Position: Reference Physician Member Role: Lifetime Consulting Physician Address: Address: [address] [place] [address] [address] [facility] [place] [address]- [place] Care Team Related Persons Name: DANA PERALES Address: home [address] [address] Name: BO PERALES Address: home [address] [place] [address] Name: DANA BALTAZAR Address: home [address] [place] [address] Name: NALDO AVALOS Address: [address] [place] [address] Name: NALDO BARNARD Address: home [address] [place] [address]
--- OUTSIDE RECORDS SUMMARY | 2024-06-17 06:03 | XMS_ITS | Continuity of Care Document ---
Author Organization [facility] Address [address] [place] [address]- Care Team Providers Care Art Specialist Name Role Phone Geoff Glover DO Primary Care Physician [phone] Encounter [facility] Date(s): 06/26/19 - 09/19/19 [facility] [address] [place] [address]- [facility] Attending Physician: Geoff Glover DO Allergies, Adverse Reactions, Alerts Substance Reaction Severity Status NKA Active Immunizations Given and Recorded Vaccine Date Status Refusal Reason influenza virus vaccine, inactivated 06/09/18 Darryn rded [...] 3Admin Note: [facility] 4Result Comment: Lot [id number] (E) [id number] 5Admin Note: dr hall 6Result Comment: [employer] [id number] [id number] 27feblo Medications amlodipine 10 mg oral tablet 10 mg, 1, tablet, By Mouth, Daily, pharmacy wants 90 days, # 90 tablet, Refills 1, Tot. Refills 1, Maintenance, 07/10/16 21:05:57, Route to Pharmacy Electronically, [id number], [facility]/pharmacy #[id number] Start Date: 07/10/16 Stop Date: 01/06/17 Status: Ordered aspirin 81 mg oral enteric coated tablet 1 tablet = 81 mg, By Mouth, Daily, # 30 tablet, 3 Refills, Maintenance Start Date: 05/27/09 Status: Ordered BD UF RADHA PEN NEEDLE [id number] See Instructions, # 120 Unknown, Refills 5 Tot. Refills 5, USE DAILY, [facility]/pharmacy #[id number] Start Date: 07/10/19 Status: Ordered buPROPion 150 mg/24 hours (XL) oral tablet, extended release 1 tablet = 150 mg, By Mouth, Every 24 hours, # 90 tablet, 1 Refills, Maintenance, 08/26/19 9:56:00 EST, ER Tablet, [facility]/pharmacy #[id number], 1 tablet By Mouth Every 24 hours,x90 days, 170.5, cm, 06/25/19 14:35:00 EDT, Height, 96.4, kg, 10/31/18 8:05:00 EST,... Start Date: 08/26/19 Stop Date: 02/22/20 Status: Ordered Crestor 40 mg oral tablet [...] CHECK BLOOD SUGARS 3 TIMES A DAY, [facility]/pharmacy #[id number] Start Date: 03/10/19 Status: Ordered [...] EDT, Compound Start Date: 03/09/19 Status: Ordered hydrochlorothiazide 12.5 mg oral capsule 1 capsule = 12.5 mg, By Mouth, Daily, 0 Refills, Maintenance, 05/20/17 9:24:06 Start Date: 05/20/17 Status: Ordered Insulin Pen needles 32G Insulin Pen needles 32G , See Instructions, # 120 each, Refills 5, Tot. Refills 5, Maintenance,USE DAILY DM2 E11.9, 06/04/18 10:49:05 EDT, Compound Start Date: 06/04/18 Status: Ordered lisinopril 20 mg oral tablet 20 mg, By Mouth, Daily, # 90 tablet, Refills 0, Tot. Refills 0, Maintenance, 07/07/18 11:08:24 EDT,Route to Pharmacy Electronically, [id number], [facility]/pharmacy #[id number] Start Date: 07/07/18 Status: Ordered metFORMIN 500 mg oral tablet, extended release 4 tablet = 2,000 mg, By Mouth, Daily, # 120 tablet, 11 Refills, Maintenance, 10/21/18 17:17:09 EST,D/C RX on file 1000mg not covered by [...] TAKE 1 CAPSULE BY MOUTH EVERY DAY, [facility]/pharmacy #[id number] Start Date: 06/01/19 Status: Ordered tamsulosin 0.4 mg oral capsule See Instructions, # 90 capsule, TAKE 1 CAPSULE BY MOUTH EVERY DAY, [facility]/pharmacy #[id number] Start Date: 04/06/19 Status: Ordered [...] mL, 5 Refills, Maintenance, 09/18/19 15:13:00 EST, [facility]/pharmacy #[id number], D/C RX ON FILE FOR [...] claribel, mild(Confirmed) Active Respiratory symptom(Confirmed) 1 Active Viral URI(Confirmed) Active 1snoring Social History Social History Type Response Smoking Status Former smoker, quit more than 30 days ago entered on: 12/29/18 Sex
--- OUTSIDE RECORDS SUMMARY | 2024-06-17 06:03 | XMS_ITS | Continuity of Care Document ---
Author Organization [facility] Address [address] [place] [address]- Care Team Providers Care Toe Trimmer Name Role Phone Maritza CABEZAS, Bailey Goss Primary Care Physic pierre Encounter [facility] Date(s): 04/20/21 - 04/27/21 [facility] [address] [place] [address]- [place] Encounter Diagnosis Memory loss(Discharge Diagnosis) - 04/20/21 Attending Physician: Bailey Salas MD Allergies, Adverse [...] 3Admin Note: [facility] 4Result Comment: Lot [id number] (E) [id number] 5Admin Note: dr hall 6Result Comment: [employer] [id number] L287x 27feblo Medications amlodipine 10 mg oral tablet 10 mg, 1, tablet, By Mouth, Daily, pharmacy wants 90 days, # 90 tablet, Refills 1, Tot. Refills 1, Maintenance, 07/10/16 21:05:57, Route to Pharmacy Electronically, [id number], [facility]/pharmacy #[id number] Start Date: 07/10/16 Stop Date: 01/06/17 Status: Ordered aspirin 81 mg oral enteric coated tablet 1 tablet = 81 mg, By Mouth, Daily, # 30 tablet, 3 Refills, Maintenance Start Date: 05/27/09 Status: Ordered BD UF RADHA PEN NEEDLE [id number] See Instructions, # 120 Unknown, Refills 5 [...] SUGARS 3 TIMES A DAY, [facility]/pharmacy #[id number] Start Date: 03/10/19 Status: Ordered [...] Maintenance, 07/07/18 11:08:24 EDT,Route to Pharmacy Electronically, [id number], [facility]/pharmacy #[id number] Start Date: 07/07/18 Status: Ordered [...] 05/04/21 16:48:00 EDT, 04/20/21 16:48:00 EDT, Ointment, [facility]/pharmacy #[id number], Partial fill upon patient request [...] Details, Route to Pharmacy Electronically, [facility]/pharmacy #[id number], 170, cm, 02/23/21 11:12:00 EDT... Start Date: 03/08/21 Status: Ordered Testopel = 300 mg, Subcutaneous Infusion, Every 3 months, 0 Refills, Maintenance, 03/26/15 23:08:01 Start Date: 03/26/15 Status: Ordered Tresiba FlexTouch 200 units/mL subcutaneous solution See Instructions, Take 110 units daily in the evening. E11.65, # 18 mL, 10 Refills, Maintenance, 03/31/21 10:22:00 EDT, [facility]/pharmacy #[id number], 170, cm, 03/20/21 9:07:00 EDT, Height, 92, kg, 09/14/19 14:18:00 EST, Dry Weight Start Date: 03/31/21 Status: Ordered Triumeq oral tablet 1 tablet, By Mouth, Daily, # 90 tablet, 0 Refills, Maintenance, 02/02/21 18:11:00 EDT, [facility]/pharmacy#0693, 1 tablet By Mouth Daily, 170, cm, 01/11/21 9:05:00 EDT, Height, 92, kg, 09/14/19 14:18:00 EST, Dry Weight Start Date: 02/02/21 Status: Ordered Trulicity Pen 3 mg/0.5 mL subcutaneous solution 0.5 mL = 3 mg, Subcutaneous Injection, Every week, Take 3mg once weekly. E11.65., # 2 mL, 5 Refills, Maintenance, 04/05/21 12:10:00 EDT, Solution, [facility]/pharmacy #[id number], Partial fill upon patient request [...] Diagnosis Diagnosis Type Effective Dates Health Status Clini lenin Service Informant Memory loss Discharge Diagnosis 04/20/21 Vital Signs Most recent to oldest [Reference Range]: 1 Height 170.00 cm (04/20/21 4:19 PM) Weight 92.8 kg (04/20/21 4:19 PM) Oxygen Saturation [94-100 %] 98 % (04/20/21 4:19 PM) Pulse Rate [55-90 bpm] 78 bpm (04/20/21 4:19 PM) Body Mass Index [18.5-24.99] 32.11 *>HHI* (04/20/21 4:19 PM) Blood Pressure [90-138/55-84 mm Hg] 108/ 60mm Hg (04/20/21 4:19 PM) Blood pressure sites Arm, left (04/20/21 4:19 PM) Weight Obtained Via Standing scale (04/20/21 4:19 PM) Social History Social History Type Response Smoking Status Former smoker, quit more than 30 days ago entered on: 12/29/18 Sex
--- OUTSIDE RECORDS SUMMARY | 2024-06-17 06:03 | XMS_ITS | Continuity of Care Document ---
Author Organization [facility] Address [address] [place] [address]- Care Team Providers Care Greenhouse Or Nursery Transplanter Name Role Phone Maritza CABEZAS, Bailey Goss Primary Care Physic pierre Encounter [facility] Date(s): 04/27/22 - 08/25/22 [facility] [address] [place] [address]- Attending Physician: Shanna CABEZAS, Jefferson Calzada Admitting Physician: Jefferson Otero MD Referring Physician: Bailey Salas MD Allergies, Adverse Reactions, Alerts No Known Allergies Immunizations Given and Recorded Vaccine Date Status Refusal Reason SARS-CoV-2 mRNA (bzwmgom-ezyb-cjnrh) vax 10/18/21 Given influenza virus vaccine, inactivated [...] 05/28/09 Given 1Result Comment: [facility]: [id number] 2Admin Note: By Dr Granado 3Admin Note: Dr Granado 4Admin Note: [facility] 5Result Comment: Lot [id number]) [id number] 6Admin Note: dr hall 7Result Comment: [employer] [id number] L287x 27feblo Medications Aricept 5 mg oral tablet 5 mg, 1, tablet, By Mouth, Daily at bedtime, For memory loss, # 90 tablet, Refills 3, Tot. Refills 3, Maintenance, 08/17/22 17:19:00 EST, Route to Pharmacy Electronically, [facility]/pharmacy #[id number], Partialfill upon patient request if the prescription is fo... Start Date: 08/17/22 Status: Ordered aspirin 81 mg oral delayed release tablet = 81 mg, By Mouth, Daily, # 30 tablet, 0 Refills, Maintenance, 11/10/21 15:20:00 EST, EC Tablet, [facility]/pharmacy #[id number], Partial fill [...] tablet, 1 Refills, Maintenance, 04/20/22 13:02:00 EDT, [facility]/pharmacy #[id number], 1 tablet By [...] Stop 11/05/22 10:20:00EST, 11/10/21 10:20:00 EST, Tablet, [facility]/pharmacy #[id number], 175, cm, 10/27/21 [...] each, 8 Refills, Maintenance, 04/17/22 12:47:00 EDT, [facility]/pharmacy #[id number], Partial fill upon patient request if the prescription is for... Start Date: 04/17/22 Stop Date: 01/12/23 Status: Ordered Pen [place], 31 G x 5 mm BD Ultra [...] [facility]/pharmacy #0693, 175, cm, 02/06/22 [...] Care Team Personnel Name: Nuzhat Sainz Position: [facility] Outreach Member Role: Lifetime Consulting Physician Name: Maritza CABEZAS, Bailey Goss Position: [facility] Primary Care Physician Member Role: PCP Address: Address: [address] [place] [address]- Name: Derik Gaines MD Position: [facility] Renal MD Member Role: Lifetime Consulting Physician Address: Address: [address] [place] [address] [address] [facility] [place] [address]- [place] Name: Jazmin Florez RN Position: [facility] RN Supv Member Role: Primary Care Nurse Name: Kiana Castelan Position: [facility] Outreach Member Role: Lifetime Consulting Physician Name: Bayron Brandt DO Position: [facility] Renal MD Member Role: Lifetime Consulting Physician Address: Address: [address] [facility] [address] [facility] [place] [address]- Name: Amie Caldwell PharmD Position: [facility] Associate Professional Member Role: Lifetime Consulting Provider Address: Address: [address] [place] [address]- [place] Name: Eric Garcia RN Position: [facility] RN Member Role: Primary Care Nurse Name: Jaclyn Schulte RN Position: [facility] RN Member Role: Primary Care Nurse Name: Kavon Liu MD Position: [facility] Physician (General Medicine) Member Role: Lifetime Consulting Physician Address: Address: [address] [place] [address], [address] [place] [address]- Care Team Related Persons Name: DANA PERALES Address: [address] [place] [address] Name: BO PERALES Address: [address] [place] [address] Name: DANA BALTAZAR Address: home [address] [place] [address] Name: NALDO AVALOS Address: [address] [place] [address] Name: NALDO BARNARD Address: [address] [place] [address]
--- OUTSIDE RECORDS SUMMARY | 2024-06-17 06:03 | XMS_ITS | Continuity of Care Document ---
Author Organization [facility] Address [address] [place] [address]- Care Team Providers Care Enamel Dipper Name Role Phone Maritza CABEZAS, Bailey Goss Primary Care Physic pierre [facility]counter [facility] Date(s): 10/20/21 - 11/19/21 [facility] [address] [place] [address]- Allergies, Adverse Reactions, Alerts No Known Allergies Immunizations Given and Recorded Vaccine Date Status Refusal Reason SARS-CoV-2 mRNA (zhgxmjp-onqg-xjltj) vax 10/18/21 Given influenza virus vaccine, inactivated [...] vaccine 7 05/28/09 Given 1Result Comment: [facility]: 26314-456-67 2Admin Note: By Dr Granado 3Admin Note: Dr Granado 4Admin Note: [facility] 5Result Comment: Lot [id number] 6Admin Note: dr hall 7Result Comment: [employer] [id number] L287x 27feblo Medications abacavir 300 mg oral [...] 0 Refills, Maintenance, 11/05/22 10:20:00 EST, Tablet, [facility]/pharmacy #[id number], 175, cm, 10/27/21 13:06:00 EST, Height, 78.5, kg, 10/10/21 0:43:00 EST, Dry Weight Start Date: 11/05/22 Status: Ordered Crestor 40 mg oral tablet 1 tablet = 40 mg, By Mouth, Daily, for 90 days, # 90 tablet, 3 Refills, Hard Stop 11/05/22 10:20:00EST, 11/10/21 10:20:00 EST, [id number], cm, 10/27/21 13:06:00 EST, Height, 78.5, kg, 10/10/21 0:43:00 EST, Dry Weight Start Date: 11/10/21 Stop Date: 11/05/22 Status: Ordered dolutegravir 50 mg oral tablet 1 tablet = 50 mg, By Mouth, Daily, # 30 tablet, 0 Refills, Maintenance, 11/10/21 15:20:00 EST, Tablet, [facility]/pharmacy #[id number], Partial fill upon patient request [...] 0 Refills, Maintenance, 11/10/21 15:20:00 EST, Tablet, [facility]/pharmacy #[id number], Partial fill upon patient request if the prescription is for a schedule II opioid drug., 175, cm, 10/27/21 13:06:00 EST, Height... Start Date: 11/10/21 Status: Ordered metoprolol 50 mg oral tablet 50 mg, 1, tablet, By Mouth, 2 times a day, # 60 tablet, Refills 0, Tot. Refills 0, Maintenance, 11/10/21 15:20:00 EST, Route to Pharmacy Electronically, [facility]/pharmacy #[id number], Partial fill upon patient request [...] 10/19/21 Stop Date: 04/17/22 Status: Ordered Pen [place], 31 G x 5 mm BD Ultra [...] Replace Required Details, Route to Pharmacy Electronically, [facility]/pharmacy #[id number], 175, cm, 10/27/21 13:06:00 EST... Start Date: 11/10/21 Stop Date: 12/10/21 Status: Ordered Testopel = 300 mg, Subcutaneous Infusion, Every 3 months, 0 Refills, Maintenance, 03/26/15 23:08:01 Start Date: 03/26/15 Status: Ordered Tresiba FlexTouch 200 units/mL subcutaneous solution See Instructions, Take 35 units daily at lunch. E11.65, # 18 mL, 10 Refills, Maintenance, 03/31/21 10:22:00 EDT, [facility]/pharmacy #[id number], 170, cm, 03/20/21 9:07:00 EDT, Height, 92, kg, 09/14/19 14:18:00 EST, Dry Weight Start Date: 03/31/21 Status: Ordered Trulicity Pen 3 mg/0.5 mL subcutaneous solution 0.5 mL = 3 mg, Subcutaneous Injection, Every week, Take 3mg once weekly. E11.65., # 2 mL, 5 Refills, Maintenance, 10/26/21 16:50:00 EST, Solution, [facility]/pharmacy #0693, Partial fill upon patient request if the prescription is for a schedule II opioid . Start Date: 10/26/21 Status: Ordered warfarin 1 mg oral tablet See Instructions, Take 4 tablets (4mg tonight), then as directed based on daily INR, # 120 tablet, 0 Refills, Maintenance, 11/10/21 15:20:00 EST, Tablet, [id number], Partial fill upon patientrequest if the prescription [...]
--- OUTSIDE RECORDS SUMMARY | 2024-06-17 06:03 | XMS_ITS | Continuity of Care Document ---
Author Organization [facility] Address [address] [place] [address]- Care Team Providers Care Talent Sourcing Specialist Name Role Phone Maritza CABEZAS, Bailey Goss Primary Care Physic pierre Encounter [facility] Date(s): 10/20/21 - 02/17/22 [facility] [address] [place] [address] Attending Physician: Kacie Monsalve MD Admitting Physician: Kacie Monsalve MD Referring Physician: Bailey Salas MD Allergies, Adverse Reactions, Alerts No Known Allergies Immunizations Given and Recorded Vaccine Date Status Refusal Reason SARS-CoV-2 mRNA (zefdexs-cctw-bsvaa) vax 10/18/21 Given influenza virus vaccine, inactivated [...] 23-valent vaccine 7 05/28/09 Given 1Result Comment: [facility]: [id number] 2Admin Note: By Dr Granado 3Admin Note: Dr Granado 4Admin Note: [facility] 5Result Comment: Lot [id number]) [id number] 6Admin Note: dr hall 7Result Comment: [employer] [id number] L287x 27feblo Medications abacavir 300 mg oral [...] 0 Refills, Maintenance, 12/20/21 15:57:00 EDT, [facility]/pharmacy #[id number], 1 tablet By Mouth Every 24 hours,x90 days, 175, cm, 12/06/21 8:15:00 EDT, Height, 78.5, kg, 10/10/21 0:43:00 EST, Dry Weight Start Date: 12/20/21 Stop Date: 03/20/22 Status: Ordered Crestor 40 mg oral tablet 1 tablet = 40 mg, By Mouth, Daily, for 90 days, # 90 tablet, 3 Refills, Hard Stop 11/05/22 10:20:00EST, 11/10/21 10:20:00 EST, Tablet, [facility]/pharmacy #0693, 175, cm, 10/27/21 13:06:00 EST, [...] Refills, Maintenance, 11/10/21 15:20:00 EST, Tablet, [facility]/pharmacy #0693, Partial fill upon patient request if the prescription is for a schedule II opioid drug., 175, cm, 10/27/21 13:06:00 EST, Height... Start Date: 11/10/21 Status: Ordered metoprolol 50 mg oral tablet 50 mg, 1, tablet, By Mouth, 2 times a day, # 180 tablet, Refills 0, Tot. Refills 0, Maintenance, 12/20/21 15:57:00 EDT, Route to Pharmacy Electronically, [facility]/pharmacy #0693, Partial fill upon patientrequest if [...] each, 8 Refills, Maintenance, 04/17/22 12:47:00 EDT, [facility]/pharmacy #0693, Partial fill upon patient request if the prescription is for... Start Date: 04/17/22 Stop Date: 01/12/23 Status: Ordered Pen [place], 31 G x 5 mm BD Ultra [...] Required Details, Route to Pharmacy Electronically, [facility]/pharmacy #0693, 175, cm, 12/06/21 8:15:00 EDT,... Start Date: 12/20/21 Status: Ordered Testopel = 300 mg, Subcutaneous Infusion, Every 3 months, 0 Refills, Maintenance, 03/26/15 23:08:01 Start Date: 03/26/15 Status: Ordered Tresiba FlexTouch 200 units/mL subcutaneous solution See Instructions, Take 28 units daily at lunch. E11.65, # 18 mL, 10 Refills, Maintenance, 03/31/21 10:22:00 EDT, [facility]/pharmacy #0693, 170, cm, 03/20/21 9:07:00 EDT, Height, 92, kg, 09/14/19 14:18:00 EST, Dry Weight Start Date: 03/31/21 Status: Ordered Trulicity Pen 3 mg/0.5 mL subcutaneous solution 0.5 mL = 3 mg, Subcutaneous Injection, Every week, Take 3mg once weekly. E11.65., # 2 mL, 5 Refills, Maintenance, 02/02/22 10:33:00 EDT, Solution, [facility]/pharmacy #0693, Partial fill upon patient request [...]
--- OUTSIDE RECORDS SUMMARY | 2024-06-17 06:03 | XMS_ITS | Continuity of Care Document ---
Author Organization [facility] Address [address] [place] [address]- Care Team Providers Care Cap Cutter Name Role Phone Maritza CABEZAS, Bailey Goss Primary Care Physic pierre [facility] - 04/[facility]/21 [facility] [address] [place] [id number] Attending Physician: AdmMarie pizano Admitting Physician: [...] 3Admin Note: [facility] 4Result Comment: Lot [id number] ([id number]) [id number] 5Admin Note: dr hall 6Result Comment: [employer] [id number] 27feblo Medications amlodipine 10 mg oral tablet 10 mg, 1, tablet, By Mouth, Daily, pharmacy wants 90 days, # 90 tablet, Refills 1, Tot. Refills 1, Maintenance, 07/10/16 21:05:57, Route to Pharmacy Electronically, [id number], [facility]/pharmacy #[id number] Start Date: 07/10/16 Stop Date: 01/06/17 Status: Ordered aspirin 81 mg oral enteric coated tablet 1 tablet = 81 mg, By Mouth, Daily, # 30 tablet, 3 Refills, Maintenance Start Date: 05/27/09 Status: Ordered BD UF RADHA PEN NEEDLE [id number] See Instructions, # 120 Unknown, Refills 5 Tot. Refills 5, USE DAILY, [facility]/pharmacy #0693 Start Date: 07/10/19 Status: Ordered BD [...] tablet, 1 Refills, Maintenance, 04/13/21 15:06:00 EDT, [facility]/pharmacy #0693, 90, 1 tablet By Mouth Every 24 hours, 170, cm, 03/20/21 9:07:00 EDT, Height, 92, kg, 09/14/19 14:18:00 EST, Dry Weight Start Date: 04/13/21 Status: Ordered Crestor 40 mg oral tablet 1 tablet = 40 mg, By Mouth, Daily, # 90 tablet, 3 Refills, Maintenance, 08/30/20 8:19:00 EST, Tablet, [facility]/pharmacy #0693, 170, cm, 03/29/20 10:57:00 EDT, Height, [...] Maintenance, 07/07/18 11:08:24 EDT,Route to Pharmacy Electronically, [id number], [facility]/pharmacy #0693 Start Date: 07/07/18 Status: Ordered metoprolol [...] Route to Pharmacy Electronically, [facility]/pharmacy #0693, 170, cm, 02/23/21 11:12:00 EDT... Start [...]
--- OUTSIDE RECORDS SUMMARY | 2024-06-17 06:04 | XMS_ITS | Continuity of Care Document ---
Author Organization [facility] Address [address] [place] [address]- Care Team Providers Care Stair Builder Name Role Phone Maritza CABEZAS, Bailey Goss Primary Care Physic pierre [facility] - 11/19/21 [facility] [address] [place] [address]- Allergies, Adverse Reactions, Alerts No Known Allergies Immunizations Given and Recorded Vaccine Date Status Refusal Reason SARS-CoV-2 mRNA (zrzgqhx-hzfq-fqhps) vax 10/18/21 Given influenza virus vaccine, inactivated [...] Given 1Result Comment: [facility]: 98706-107-08 2Admin Note: By Dr Granado 3Admin Note: Dr Granado 4Admin Note: [facility] 5Result Comment: Lot [id number] 6Admin Note: dr hall 7Result Comment: [employer] [id number] L287x 27feblo Medications abacavir 300 mg oral [...] 0 Refills, Maintenance, 11/05/22 10:20:00 EST, [id number], cm, 10/27/21 13:06:00 EST, Height, 78.5, kg, 10/10/21 0:43:00 EST, Dry Weight Start Date: 11/05/22 Status: Ordered Crestor 40 mg oral tablet 1 tablet = 40 mg, By Mouth, Daily, for 90 days, # 90 tablet, 3 Refills, Hard Stop 11/05/22 10:20:00EST, 11/10/21 10:20:00 EST, Tablet, [id number], 175, cm, 10/27/21 13:06:00 EST, Height, 78.5, kg, 10/10/21 0:43:00 EST, Dry Weight Start Date: 11/10/21 Stop Date: 11/05/22 Status: Ordered dolutegravir 50 mg oral tablet 1 tablet = 50 mg, By Mouth, Daily, # 30 tablet, 0 Refills, Maintenance, 11/10/21 15:20:00 EST, Tablet, [facility] Partial fill upon patient request if [...] 0 Refills, Maintenance, 11/10/21 15:20:00 EST, Tablet, [facility]/pharmacy #0693, Partial fill upon patient request if the prescription is for a schedule II opioid drug., 175, cm, 10/27/21 13:06:00 EST, Height... Start Date: 11/10/21 Status: Ordered metoprolol 50 mg oral tablet 50 mg, 1, tablet, By Mouth, 2 times a day, # 60 tablet, Refills 0, Tot. Refills 0, Maintenance, 11/10/21 15:20:00 EST, Route to Pharmacy Electronically, [facility]/pharmacy #0693, Partial fill upon [...] 10/19/21 Stop Date: 04/17/22 Status: Ordered Pen [place], 31 G x 5 mm BD Ultra [...] Replace Required Details, Route to Pharmacy Electronically, [facility]/pharmacy #0693, 175, cm, 10/27/21 13:06:00 EST... Start Date: 11/10/21 Stop Date: 12/10/21 Status: Ordered Testopel = 300 mg, Subcutaneous Infusion, Every 3 months, 0 Refills, Maintenance, 03/26/15 23:08:01 Start Date: 03/26/15 Status: Ordered Tresiba FlexTouch 200 units/mL subcutaneous solution See Instructions, Take 35 units daily at lunch. E11.65, # 18 mL, 10 Refills, Maintenance, 03/31/21 10:22:00 EDT, [facility]/pharmacy #0693, 170, cm, 03/20/21 9:07:00 EDT, Height, 92, kg, 09/14/19 14:18:00 EST, Dry Weight Start Date: 03/31/21 Status: Ordered Trulicity Pen 3 mg/0.5 mL subcutaneous solution 0.5 mL = 3 mg, Subcutaneous Injection, Every week, Take 3mg once weekly. E11.65., # 2 mL, 5 Refills, Maintenance, 10/26/21 16:50:00 EST, Solution, [facility]/pharmacy #0693, Partial fill upon [...]
--- OUTSIDE RECORDS SUMMARY | 2024-06-17 06:04 | XMS_ITS | Continuity of Care Document ---
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(Discharge Diagnosis) - 12/28/22 Depression, major(Discharge Diagnosis) - 12/28/22 Dementia(Discharge Diagnosis) - 12/28/22 Insulin long-term use(Discharge Diagnosis) - 12/28/22 Attending Physician: Maritza CABEZAS, Bailey Goss Allergies, Adverse Reactions, Alerts No Known Allergies Immunizations Given and Recorded Vaccine Date Status Refusal Reason SARS-CoV-2 mRNA (rlrzkei-azkl-iwstl) vax 10/18/21 Given influenza virus vaccine, inactivated [...] 23-valent vaccine 7 05/28/09 Given 1Result Comment: [facility]: 23149-233-26 2Admin Note: By Dr Granado 3Admin Note: Dr Granado 4Admin Note: [facility] 5Result Comment: Lot [id number] (E) [id number] 6Admin Note: dr hall 7Result Comment: [employer] [id number] L287x 27feblo Medications amLODIPine 2.5 mg oral [...] tablet, 1 Refills, Maintenance, 04/20/22 13:02:00 EDT, [facility]/pharmacy #0693, 1 tablet By Mouth [...] 30 days, 3 times daily before meals; give >150 : 10 units 3 times before meals., # 3 each, 8 Refills, Hard Stop 01/12/23 12:47:00 EDT, 04/17/22 12:47:00 EDT, [facility]/pharmacy #0693, Partial fill upon patient r... Start Date: 04/17/22 Stop Date: 01/12/23 Status: Ordered NovoLOG FlexPen 100 units/mL subcutaneous solution See Instructions, Subcutaneous Injection, 3 times daily before meals; give >150 : 10 units 3 times before meals. for TYpe 2 DM 11.65, # 3 each, 8 Refills, Maintenance, 01/12/23 12:47:00 EDT, [facility]acy [facility], Partial fill upon patient request if th... Start Date: 01/12/23 Stop Date: 10/09/23 Status: Ordered Pen [place], 31 G x 5 mm BD Ultra [...] Replace Required Details, Route to Pharmacy Electronically, [facility]/pharmacy #[id number], 175, cm, 10/03/22 14:39:00 EST... Start Date: 10/29/22 Status: Ordered Testopel = 300 mg, Subcutaneous Infusion, Every 3 months, 0 Refills, Maintenance, 03/26/15 23:08:01 Start Date: 03/26/15 Status: Ordered Tresiba FlexTouch 200 units/mL subcutaneous solution See Instructions, Take 22 units daily at lunch. E11.65, # 9 mL, 10 Refills, Maintenance, 12/31/22 11:09:00 EDT, [facility]/pharmacy #0693, 175, cm, 12/28/22 15:56:00 EDT, Height, 81.65, kg, 06/19/22 9:04:00EDT, Dry Weight Start Date: 12/31/22 Status: Ordered Trulicity Pen 3 mg/0.5 mL subcutaneous solution 0.5 mL = 3 mg, Subcutaneous Injection, Every week, Take 3mg once weekly. E11.65., # 2 mL, 5 Refills, Maintenance, 10/18/22 16:22:00 EST, Solution, 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 Discharge Diagnosis 12/28/22 Depression, major Discharge Diagnosis 12/28/22 Dementia Discharge Diagnosis 12/28/22 Insulin long-term use Discharge Diagnosis 12/28/22 Vital Signs Most recent to oldest [Reference Range]: 1 2 Height 175 cm (12/28/22 3:56 PM) 175 cm (12/28/22 3:53 PM) Weight 81.5 kg (12/28/22 3:56 PM) Oxygen Saturation [94-100 %] 96 % (12/28/22 3:53 PM) Pulse Rate [55-90 bpm] 101 bpm *H* (12/28/22 3:53 PM) Body Mass Index [18.5-24.99 kg/m2] 26.61 kg/m2 *H* (12/28/22 3:56 PM) Blood Pressure [90-138/55-84 mm Hg] 139/ 78mm Hg *H* (12/28/22 3:56 PM) 142/83mm Hg *H* (12/28/22 3:53 PM) Social History Social History Type Response Smoking Status Former smoker, quit more than 30 days ago entered on: 12/29/18 Sex Note * Nano Goyal: PERFORM, SIGN, VERIFY Event Display: Patient Education/Instruction Authored Date: [id number] [facility] *[facility] Clinical Summary Name MILAGROS PERALES Age 72 Years 1950 PCP Maritza CABEZAS, Bailey Goss PCP Visit Date 12/28/2022 15:22:00 Patient Instructions 1. Increase Tresiba to 25 units daily. 2. Your Donepezil has been increased to 10 mg daily. Additional Instructions: Scheduled Appointments?? Future Appointments ?No Future Appointments Scheduled Follow-Up Instructions ?? 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 Discuss any questions related to medications with your provider. Medications to Continue Taking That Have Changed [facility]/pharmacy #[id number], [address] [place] [id number], [phone] - Donepezil (Aricept 10 mg oral tablet) 1 tab(s) Oral Daily at Bedtime. New dose. Refills: 3. Next Dose: Medications to Continue with No Changes These medications were not printed or sent to your pharmacy Amlodipine (amLODIPine 2.5 mg oral tablet) 1 tab(s) Oral Daily. Refills: 3. Next Dose: Aspirin (aspirin 81 mg oral delayed release tablet) 81 Milligram Oral Daily. Refills: 0. Next Dose: BuPROpion (buPROPion 150 mg/24 hours (XL) oral tablet, extended release) 1 tab(s) Oral every 24 hours for 90 Days. Refills: 1. Next Dose: cabotegravir-rilpivirine (Cabenuva 400/600 intramuscular suspension, extended release) Intramuscular. 2 injections monthly. Next Dose: Doxycycline (doxycycline hyclate 100 mg oral enteric coated tablet) 2 tab(s) Oral Daily for 7 Days.Refills: 0. Next Dose: Doxycycline (doxycycline monohydrate 100 mg oral capsule) 1 capsule Oral twice a day for 7 Days. Refills: 0. Next Dose: dulaglutide (Trulicity Pen 3 mg/0.5 mL subcutaneous solution) 0.5 Milliliter Subcutaneous Injectionevery week. Take 3mg once weekly. E1165.. Refills: 5. Next Dose: Durable Medical Equipment (Freestyle Lite Lancets) Use to check blood sugars 3 times daily. E11.65.Refills: 5. Next Dose: Durable Medical Equipment (Freestyle Lite Monitor) e11.65 Test BG 3 times daily. Refills: 0. Next Dose: Durable Medical Equipment (Freestyle Lite Test Strips) use as directed for Type 2 Diabetes Mellitus. Refills: 0. Next Dose: Durable Medical Equipment (Pen [place], 31 G x 5 mm BD Ultra Fine III) use as directed for Type 2 Diabetes Mellitus. Refills: 5. Next Dose: Insulin Aspart (NovoLOG FlexPen 100 units/mL subcutaneous solution) 3 times daily before meals; give >150 : 10 units 3 times before meals.. Refills: 8. Next Dose: insulin degludec (Tresiba FlexTouch 200 units/mL subcutaneous solution) Take 22 units daily at lunch. E1165. Refills: 10. Next Dose: Lisinopril 20 Milligram Oral Daily. Next Dose: Metoprolol (Metoprolol Succinate ER 200 mg oral tablet, extended release) Next Dose: Miscellaneous Rx (BD UF PEN NEEDLE 4MM x 32G) Use to inject insulin once daily. E11. Refills: 11. Next Dose: Miscellaneous Rx (FREESTYLE LITE TEST STRIP) USE DIRECTED TO CHECK BLOOD SUGARS 3X DAILY. Next Dose: Miscellaneous Rx (FREESTYLE LITE TEST STRIP) USE DIRECTED TO CHECK BLOOD SUGARS 3X DAILY. Refills: 13. Next Dose: Tamsulosin (tamsulosin 0.4 mg oral capsule) TAKE 1 CAPSULE BY MOUTH EVERY DAY. Refills: 1. Next Dose: Testosterone (Testopel) 300 Milligram Subcutaneous Infusion Every 3 months. Next Dose: Allergy Info:?? NKA Medications Given This Visit Future Orders ?Basic Metabolic Panel? Order Date:12/28/22?- Complete on or after?12/28/22 Vital Signs Height 175 cm Weight 81.5 kg BMI 26.61 kg/m2 Blood Pressure 139 mm Hg/78 mm Hg Temperature Pulse Rate 101 bpm Respiratory Rate 02 Sat Mode of Delivery 96 %/ You can now view a summary of your hospital visit from the comfort of your home through a free online portal called [employer]. [employer] is a website that allows you to securely view your medical information including discharge summary, medications and follow-up visits. ??You can alsosend a secure electronic message to your doctor???s office to request appointments, renew medications or just ask a question. You can enroll at [email or web address] or register during your next office visit. [...] primary care provider, you may find a [facility] provider by calling [email or web address] at [phone]. For information about the plan of care [...] Physician Name: Maritza CABEZAS, Bailey Goss Position: [facility] Primary Care Physician Member Role: PCP Address: Address: [address] [place] [address]- Name: Derik Gaines MD Position: [facility] Renal MD Member Role: Lifetime Consulting Physician Address: Address: [address] [place] [address] [address] [facility] [place] [place] [address]- Name: Jazmin Florez RN Position: [facility] RN Supv Member Role: Primary Care Nurse Name: Kiana Castelan Position: [facility] Outreach Member Role: Lifetime Consulting Physician Name: Bayron Brandt DO Position: [facility] Renal MD Member Role: Lifetime Consulting Physician Address: Address: [address] [facility] [place] [address]- [place] Name: Amie Caldwell PharmD Position: [facility] Associate Professional Member Role: Lifetime Consulting Provider Address: Address: [address] [place] [address]- [place] Name: Eric Garcia RN Position: [facility] RN Member Role: Primary Care Nurse Name: Jaclyn Schulte RN Position: [facility] RN Member Role: Primary Care Nurse Name: Kavon Liu MD Position: Reference Physician Member Role: Lifetime Consulting Physician Address: Address: [address] [place] [address] [address] [facility] [place] [address]- Care Team Related Persons Name: DANA PERALES Address: home [address] [place] [address] Name: BO PERALES Address: home [address] [place] [address] Name: DANA BALTAZAR Address: home [address] [place] [address] Name: NALDO AVALOS Address: home [address] [place] [address] Name: NALDO BARNARD Address: home [address] [place] [address]
--- OUTSIDE RECORDS SUMMARY | 2024-06-17 06:04 | XMS_ITS | Continuity of Care Document ---
Author Organization [facility] Address [address] [place] [address]- Care Team Providers Care Sizing End Bander Name Role Phone Maritza CABEZAS, Bailey Goss Primary Care Physic pierre [facility] 07[facility] - 08/03/22 [facility] [address] [place] [address] Allergies, Adverse Reactions, Alerts No Known Allergies Immunizations Given and Recorded Vaccine Date Status Refusal Reason SARS-CoV-2 mRNA (fgvszcl-yqkl-lbedi) vax 10/18/21 Given influenza virus vaccine, inactivated [...] 23-valent vaccine 7 05/28/09 Given 1Result Comment: [facility]: 18285-607-77 2Admin Note: By Dr Granado 3Admin Note: Dr Granado 4Admin Note: [facility]INIC 5Result Comment: Lot [id number] (E) [id number] 6Admin Note: dr hall 7Result Comment: [employer] [id number] L287x 27feblo Medications aspirin 81 mg oral [...] # 60 tablet, 3 Refills, [facility], 175, cm, 02/06/22 16:03:00 EDT, Height, 78.5, [...] 12/20/21 15:57:00 EDT, Route to Pharmacy Electronically, [facility]/pharmacy #[id number], Partial fill upon patientrequest if the prescription is for a schedule II op... Start Date: 12/20/21 Stop Date: 03/20/22 Status: Ordered NovoLOG FlexPen 100 units/mL subcutaneous solution See Instructions, Subcutaneous Injection, 3 times daily before meals; give >150 : 10 units 3 times before meals., # 3 each, 8 Refills, Maintenance, 04/17/22 12:47:00 EDT, [facility]/pharmacy #0693, Partial fill upon patient request if the prescription is for... Start Date: 04/17/22 Stop Date: 01/12/23 Status: Ordered Pen [place], 31 G x 5 mm BD Ultra [...] Replace Required Details, Route to Pharmacy Electronically, [facility]/pharmacy #0693, 175, cm, 02/06/22 [...] Care Physician Member Role: PCP Address: Address: [address] [place] [address]- Name: Derik Gaines MD Position: [facility] Renal MD Member Role: Lifetime Consulting Physician Address: Address: [address] [place] [address] [address] [facility] [place] [address]- [place] Name: Jazmin Florez RN Position: [facility] RN Supv Member Role: Primary Care Nurse Name: Kiana Castelan Position: [facility] Outreach Member Role: Lifetime Consulting Physician Name: Bayron Brandt DO Position: [facility] Renal MD Member Role: Lifetime Consulting Physician Address: Address: [address] [facility] [address] [facility] [place] [address]- [place] Name: Amie Caldwell PharmD Position: [facility] Associate Professional Member Role: Lifetime Consulting Provider Address: Address: [address] [facility] [place] [address]- [place] Name: Eric Garcia RN Position: [facility] RN Member Role: Primary Care Nurse Name: Jaclyn Schulte RN Position: [facility] RN Member Role: Primary Care Nurse Name: Kavon Liu MD Position: [facility] Physician (General Medicine) Member Role: Lifetime Consulting Physician Address: Address: [address] [place] [address], [address] [place] [address]- Care Team Related Persons Name: DANA PERALES Address: home [address] [place] [address] Name: BO PERALES Address: home [address] [place] [address] Name: DANA BALTAZAR Address: home [address] [place] [address] Name: NALDO AVALOS Address: home [address] [place] [address] Name: NALDO BARNARD Address: home [address] [place] [address]
--- OUTSIDE RECORDS SUMMARY | 2024-06-17 06:04 | XMS_ITS | Continuity of Care Document ---
Author Organization [facility] Address [address] [place] [address]- Care Team Providers Care Bait Packer Name Role Phone Maritza CABEZAS, Bailey Goss Primary Care Physic pierre Encounter [facility] [place] Date(s): 01/29/22 - 02/28/22 [facility] [address] [place] [address]- [place] Allergies, Adverse Reactions, Alerts No Known Allergies Immunizations Given and Recorded Vaccine Date Status Refusal Reason SARS-CoV-2 mRNA (zgbkgzo-vvkn-lvnru) vax 10/18/21 Given influenza virus vaccine, inactivated [...] vaccine 7 05/28/09 Given 1Result Comment: [facility]: 85647-989-16 2Admin Note: By Dr Granado 3Admin Note: Dr Granado 4Admin Note: [facility] CLINIC 5Result Comment: Lot [id number] (E) [id number] 6Admin Note: dr hall 7Result Comment: [employer] [id number] L287x 27feblo Medications abacavir 300 mg oral [...] 0 Refills, Maintenance, 11/10/21 15:20:00 EST, Tablet, [facility]/pharmacy #0693, Partial fill upon patient request if the prescription is for a schedule II opioid drug., 175, cm, 10/27/21 13:06:00 EST, Height... Start Date: 11/10/21 Status: Ordered metoprolol 50 mg oral tablet 50 mg, 1, tablet, By Mouth, 2 times a day, # 180 tablet, Refills 0, Tot. Refills 0, Maintenance, 12/20/21 15:57:00 EDT, Route to Pharmacy Electronically, [facility]/pharmacy #0693, Partial fill upon patientrequest if the [...] 04/17/22 Stop Date: 01/12/23 Status: Ordered Pen [place], 31 G x 5 mm BD Ultra [...] [facility]/pharmacy #0693, 175, cm, 12/06/21 8:15:00 EDT,... Start Date: 12/20/21 Status: Ordered Testopel = 300 mg, Subcutaneous Infusion, Every 3 months, 0 Refills, Maintenance, 03/26/15 23:08:01 Start Date: 03/26/15 Status: Ordered Tresiba FlexTouch 200 units/mL subcutaneous solution See Instructions, Take 28 units daily at lunch. E11.65, # 18 mL, 10 Refills, Maintenance, 03/31/21 10:22:00 EDT, [facility]/pharmacy #0693, 170, cm, 03/20/21 9:07:00 EDT, Height, 92, kg, 09/14/19 14:18:00 EST, Dry Weight Start Date: 03/31/21 Status: Ordered Trulicity Pen 3 mg/0.5 mL subcutaneous solution 0.5 mL = 3 mg, Subcutaneous Injection, Every week, Take 3mg once weekly. E11.65., # 2 mL, 5 Refills, Maintenance, 02/02/22 10:33:00 EDT, Solution, [facility]/pharmacy #0693, Partial fill [...]
--- OUTSIDE RECORDS SUMMARY | 2024-06-17 06:04 | XMS_ITS | Continuity of Care Document ---
Author Organization [facility] Address [address] [place] [id number]- Care Team Providers Care Dock Manager Name Role Phone Maritza CABEZAS, Bailey Goss Primary Care Physic pierre [facility] - 11/23/21 [facility] [address] [address] Allergies, Adverse Reactions, Alerts No Known Allergies Immunizations Given and Recorded Vaccine Date Status Refusal Reason SARS-CoV-2 mRNA (fuqdxkf-tgyh-whwlx) vax 10/18/21 Given influenza virus vaccine, inactivated [...] Given 1Result Comment: [facility]: 36917-106-75 2Admin Note: By Dr Granado 3Admin Note: Dr Granado 4Admin Note: [facility] 5Result Comment: Lot [id number] ([id number]) [id number] 6Admin Note: dr hall 7Result Comment: [employer] [id number] L287x 27feblo Medications abacavir 300 mg oral [...] Stop 11/05/22 10:20:00EST, 11/10/21 10:20:00 EST, Tablet, [facility]/pharmacy #[id number], 175, cm, 10/27/21 13:06:00 [...] 0 Refills, Maintenance, 11/10/21 15:20:00 EST, Tablet, [facility]/pharmacy #[id number], Partial fill upon patient request if the prescription is for a schedule II opioid drug., 175, cm, 10/27/21 13:06:00 EST, Height... Start Date: 11/10/21 Status: Ordered metoprolol 50 mg oral tablet 50 mg, 1, tablet, By Mouth, 2 times a day, # 60 tablet, Refills 0, Tot. Refills 0, Maintenance, 11/10/21 15:20:00 EST, Route to Pharmacy Electronically, [facility]/pharmacy #[id number], Partial fill upon patient [...] 3 each, 5 Refills,Maintenance, 10/19/21 12:47:00 EST, [facility]... Start Date: 10/19/21 Stop Date: 04/17/22 Status: Ordered Pen [place], 31 G x 5 mm BD Ultra [...] Replace Required Details, Route to Pharmacy Electronically, [facility]/pharmacy #[id number], 175, cm, 10/27/21 13:06:00 EST... [...]
--- OUTSIDE RECORDS SUMMARY | 2024-06-17 06:04 | XMS_ITS | Continuity of Care Document ---
Author Organization [facility] Address [address] [place] [address] [place] [address]- Care Team Providers Care Apple Picker Name Role Phone Maritza CABEZAS, Bailey Goss Primary Care Physic pierre [facility] 10[facility]/21 - 11/30/21 [facility] [address] [place] [id number] Allergies, Adverse Reactions, Alerts No Known Allergies Immunizations Given and Recorded Vaccine Date Status Refusal Reason SARS-CoV-2 mRNA (wkcteep-nfdi-djpwe) vax 10/18/21 Given influenza virus vaccine, inactivated [...] 23-valent vaccine 7 05/28/09 Given 1Result Comment: [facility]: [id number] [address] Note: [address] Granado 3Admin Note: Dr Granado 4Admin Note: [facility] 5Result Comment: Lot [id number] ([id number]) [id number] 6Admin Note: dr hall 7Result Comment: [employer] [id number] L287x 27feblo Medications abacavir 300 mg oral [...] 11/05/22 10:20:00EST, 11/10/21 10:20:00 EST, Tablet, [facility]/pharmacy #[id number], 175, cm, 10/27/21 13:06:00 [...] Refills, Maintenance, 11/10/21 15:20:00 EST, Tablet, [facility]/pharmacy #[id number], Partial fill upon patient request if the prescription is for a schedule II opioid drug., 175, cm, 10/27/21 13:06:00 EST, Height... Start Date: 11/10/21 Status: Ordered metoprolol 50 mg oral tablet 50 mg, 1, tablet, By Mouth, 2 times a day, # 60 tablet, Refills 0, Tot. Refills 0, Maintenance, 11/10/21 15:20:00 EST, Route to Pharmacy Electronically, [facility]/pharmacy #[id number], Partial fill upon patient [...] 3 each, 5 Refills,Maintenance, 10/19/21 12:47:00 EST, [facility]... Start Date: 10/19/21 Stop Date: 04/17/22 Status: Ordered Pen [place], 31 G x 5 mm BD Ultra [...] Required Details, Route to Pharmacy Electronically, [facility]/pharmacy #[id number], 175, cm, 10/27/21 13:06:00 [...]
--- OUTSIDE RECORDS SUMMARY | 2024-06-17 06:04 | XMS_ITS | Continuity of Care Document ---
Author Organization [facility] Address [address] [place] [address]- Care Team Providers Care Data Analyst Etl Developer Name Role Phone Maritza CABEZAS, Bailey Goss Primary Care Physic pierre [facility] 03[facility]23 - 04/04/23 [facility] [address] [place] [address]- [place] Encounter Diagnosis Uncontrolled type 2 diabetes mellitus with hyperglycemia, with long-term current use of insulin(Discharge Diagnosis) - 03/28/23 Memory problem(Discharge Diagnosis) - 03/28/23 Type 2 diabetes mellitus with cardiac complication(Discharge Diagnosis) - 03/28/23 CKD (chronic kidney disease) stage 3, GFR 30-59 ml/min(Discharge Diagnosis) - 03/28/23 Hypertension(Discharge Diagnosis) - 03/28/23 Attending Physician: Maritza CABEZAS, Bailey Goss Allergies, Adverse Reactions, Alerts No Known Allergies Immunizations Given and Recorded Vaccine Date Status Refusal Reason tetanus/diphtheria/pertussis, acel(Tdap) 03/28/23 Given pneumococcal 23-valent vaccine 03/28/23 Given pneumococcal 23-valent vaccine 1 05/28/09 Given SARS-CoV-2 mRNA (zpxrlds-zwzp-kexxf) vax 10/18/21 Given influenza virus vaccine, inactivated [...] FluLaval (oldterm) 7 06/09/10 Given 1Result Comment: [employer] [id number] L287x 27feblo 2Result Comment: [facility]: [id number] 3Admin Note: By [address] Granado 4Admin Note: Dr Granado 5Admin Note: [facility] 6Result Comment: Lot [id number] (E) [id number] 7Admin Note: dr hall Medications amLODIPine 2.5 mg oral tablet 2.5 mg, 1, tablet, By Mouth, Daily, # 90 tablet, Refills 3, Tot. Refills 3, Maintenance, 10/03/22 15:00:00 EST, Route to Pharmacy Electronically, [facility]/pharmacy #[id number], Partial fill upon patient requestif the prescription is for a schedule II opioid sandip... Start Date: 10/03/22 Status: Ordered Aricept 10 mg oral tablet 10 mg, 1, tablet, By Mouth, Daily at bedtime, New dose, # 90 tablet, Refills 3, Tot. Refills 3, Maintenance, 12/28/22 16:42:00 EDT, Route to Pharmacy Electronically, [facility]/pharmacy [...] tablet, 1 Refills, Maintenance, 04/20/22 13:02:00 EDT, [facility]/pharmacy #[id number], 1 tablet By Mouth [...] 1 Refills, Maintenance, 03/09/23 4:33:00 EDT, Tablet, [facility]/pharmacy #[id number], 175, cm, 12/28/22 15:56:00 EDT, [...] each, 8 Refills, Maintenance, 01/12/23 12:47:00 EDT, [facility]/pharmacy #[id number], Partial fill upon patient request if th... Start Date: 01/12/23 Stop Date: 10/09/23 Status: Ordered Pen [place], 31 G x 5 mm BD Ultra [...] Replace Required Details, Route to Pharmacy Electronically, [facility]/pharmacy #[id number], 175, cm, 10/03/22 14:39:00 EST... Start Date: 10/29/22 Status: Ordered Testopel = 300 mg, Subcutaneous Infusion, Every 3 months, 0 Refills, Maintenance, 03/26/15 23:08:01 Start Date: 03/26/15 Status: Ordered Tresiba FlexTouch 200 units/mL subcutaneous solution See Instructions, Take 22 units daily at lunch. E11.65, # 9 mL, 10 Refills, Maintenance, 12/31/22 11:09:00 EDT, [facility]/pharmacy #[id number], 175, cm, 12/28/22 15:56:00 EDT, Height, 81.65, kg, 06/19/22 9:04:00EDT, Dry Weight Start Date: 12/31/22 Status: Ordered Trulicity Pen 3 mg/0.5 mL subcutaneous solution 0.5 mL = 3 mg, Subcutaneous Injection, Every week, Take 3mg once weekly. E11.65., # 2 mL, 5 Refills, Maintenance, 10/18/22 16:22:00 EST, Solution, [facility], Partial fill upon patient [...] Effective Dates Health Status Clinical Service Informant Uncontrolled type 2 diabetes mellitus with hyperglycemia, with long-term current use of insulin Discharge Diagnosis 03/28/23 Memory problem Discharge Diagnosis 03/28/23 Type 2 diabetes mellitus with cardiac complication Discharge Diagnosis 03/28/23 CKD (chronic kidney disease) stage 3, GFR 30-59 ml/min Discharge Diagnosis 03/28/23 Hypertension Discharge Diagnosis 03/28/23 Vital Signs Most recent to oldest [Reference Range]: 1 2 Height 175 cm (03/28/23 3:39 PM) 175 cm (03/28/23 3:29 PM) Weight 84 kg (03/28/23 3:29 PM) Oxygen Saturation [94-100 %] 97 % (03/28/23 3:29 PM) Pulse Rate [55-90 bpm] 65 bpm (03/28/23 3:29 PM) Body Mass Index [18.5-24.99 kg/m2] 27.43 kg/m2 *H* (03/28/23 3:29 PM) Blood Pressure [90-138/55-84 mm Hg] 147/ 81mm Hg *H* (03/28/23 3:39 PM) 152/81mm Hg *H* (03/28/23 3:29 PM) Mode of Delivery (Oxygen) Room air (03/28/23 3:29 PM) Blood pressure sites Arm, left (03/28/23 3:39 PM) Arm, left (03/28/23 3:29 PM) Weight Obtained Via Standing scale (03/28/23 3:29 PM) Social History Social History Type Response Smoking Status Former smoker, quit more than 30 days ago entered on: 12/29/18 Sex Note * Nano Goyal: PERFORM, SIGN, VERIFY Event Display: Patient Education/Instruction Authored Date: [id number] [facility] *[facility] Clinical Summary Name MILAGROS PERALES Age 72 Years 1950 PCP Maritza CABEZAS, Bailey Goss PCP Visit Date 03/28/2023 14:28:00 Patient Instructions Your A1C is 8. Increase Tresiba to 37 units daily. Additional Instructions: Scheduled Appointments?? Future Appointments ?*Byst[facility] ?[address],??[place],??[address] ?Phone:??--?Fax:??-- ?Appt. Date:??05/10/2023?3:20 PM ?Scheduled Provider:??Nataly CABEZAS , Bailey Goss Follow-Up Instructions ?? With: Address: When: 1 month Comments: HTN FU Diagnosis Type 2 diabetes mellitus with other circulatory complications; Type 2 diabetes mellitus with hyperglycemia; Other amnesia; MCC (current) use of insulin; Chronic kidney disease, stage 3 unspecified; Essential (primary) hypertension Medications: Please continue your medications until treatment [...] release) Intramuscular. 2 injections monthly. Next Dose: Donepezil (Aricept 10 mg oral tablet) 1 tab(s) Oral Daily at Bedtime. New dose. Refills: 3. Next Dose: dulaglutide (Trulicity Pen 3 mg/0.5 mL subcutaneous solution) 0.5 Milliliter Subcutaneous Injectionevery week. Take 3mg once weekly. E11.65.. Refills: 5. Next Dose: Durable Medical Equipment (Freestyle Lite Lancets) Use to check blood sugars 3 times daily. E1165.Refills: 5. Next Dose: Durable Medical Equipment (Freestyle Lite Monitor) e11.65 Test BG 3 times daily. Refills: 0. Next Dose: Durable Medical Equipment (Freestyle Lite Test Strips) use as directed for Type 2 Diabetes OfckhurdN90.65. Refills: 0. Next Dose: Durable Medical Equipment (Pen [place], 31 G x 5 mm BD Ultra Fine III) use as directed for Type 2 Diabetes Mellitus. Refills: 5. Next Dose: Insulin Aspart (NovoLOG FlexPen 100 units/mL subcutaneous solution) 3 times daily before meals; give >150 : 10 units 3 times before meals. for TYpe 2 DM . Refills: 8. Next Dose: insulin degludec (Tresiba FlexTouch 200 units/mL subcutaneous solution) Take 22 units daily at lunch. . Refills: 10. Next Dose: Lisinopril 20 Milligram Oral Daily. Next Dose: Metoprolol (Metoprolol Succinate ER 200 mg oral tablet, extended release) Next Dose: Miscellaneous Rx (BD UF PEN NEEDLE 4MM x 32G) Use to inject insulin once daily. . Refills: 11. Next Dose: Miscellaneous Rx (FREESTYLE LITE TEST STRIP) USE DIRECTED TO CHECK BLOOD SUGARS 3X DAILY. Next Dose: Miscellaneous Rx (FREESTYLE LITE TEST STRIP) USE DIRECTED TO CHECK BLOOD SUGARS 3X DAILY. Refills: 13. Next Dose: Rosuvastatin (Crestor 40 mg oral tablet) 1 tab(s) Oral Daily. Refills: 1. Next Dose: Tamsulosin (tamsulosin 0.4 mg oral capsule) TAKE 1 CAPSULE BY MOUTH EVERY DAY. Refills: 1. Next Dose: Testosterone (Testopel) 300 Milligram Subcutaneous Infusion Every 3 months. Next Dose: Allergy Info:?? NKA Medications Given This Visit Medication Dose Route Pneumococcal 23-Valent Vaccine (pneumococcal 23-valent (Adult) vacc) 0.5 mL Intramuscular tetanus/diphtheria/pertussis, acel(Tdap) ((Tdap) diphtheria/pertussis, acel/tetanus vacc) 0.5 mL Intramuscular Future Orders ?No future orders Vital Signs Height 175 cm Weight 84 kg BMI 27.43 kg/m2 Blood Pressure 147 mm Hg/81 mm Hg Temperature Pulse Rate 65 bpm Respiratory Rate 02 Sat Mode of Delivery 97 %/Room air You can now view a summary of your hospital visit from the comfort of your home through a free online portal called [employer]. [employer] is a website that allows you to securely view your medical information including discharge summary, medications and follow-up visits. ??You can alsosend a secure electronic message to your doctor???s office to request appointments, renew medications or just ask a question. You can enroll at [email or web address] or register during your next office [...] primary care provider, you may find a [facility] provider by calling [facility] [employer] Link at [phone]. For information about the plan of care [...] Physician Name: Maritza CABEZAS, Bailey Goss Position: [facility] Physician - Primary Care Member Role: PCP Address: Address: [address] [place] [address]- [place] Name: Derik Gaines MD Position: [facility] Renal MD Member Role: Lifetime Consulting Physician Address: Address: [address] [facility] [address] [facility] [place] [place] [address]- [place] Name: Jazmin Florez RN Position: [facility] RN Supv Member Role: Primary Care Nurse Name: Kiana Castelan Position: [facility] Outreach Member Role: Lifetime Consulting Physician Name: Bayron Brandt DO Position: [facility] Renal MD Member Role: Lifetime Consulting Physician Address: Address: [address] [facility] [place], [place] - Name: Amie Caldwell PharmD Position: [facility] Associate Professional Member Role: Lifetime Consulting Provider Address: Address: [address] [place] [address]- [place] Name: Eric Garcia RN Position: [facility] RN Member Role: Primary Care Nurse Name: Jaclyn Schulte RN Position: [facility] RN Member Role: Primary Care Nurse Name: Kavon Liu MD Position: Reference Physician Member Role: Lifetime Consulting Physician Address: Address: [address] [place] [address] [address] [facility] [place] [address]- Care Team Related Persons Name: DANA PERALES Address: home [address] [place] [address] Name: BO PERALES Address: home [address] [place] [address] Name: DANA BALTAZAR Address: home [address] [place] [address] Name: NALDO AVALOS Address: home [address] [place] [address] Name: NALDO BARNARD Address: home [address] [place] [address]
--- OUTSIDE RECORDS SUMMARY | 2024-06-17 06:04 | XMS_ITS | Continuity of Care Document ---
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(Discharge Diagnosis) - 04/13/24 Dementia(Discharge Diagnosis) - 04/13/24 Androgen deficiency(Discharge Diagnosis) - 04/13/24 Attending Physician: Maritza CABEZAS, Bailey Goss Allergies, Adverse Reactions, Alerts No Known Allergies Immunizations Given and Recorded Vaccine Date Status Refusal Reason zoster vaccine, inactivated 04/19/23 Recorded tetanus/diphtheria/pertussis, acel(Tdap) 03/28/23 Given pneumococcal 23-valent vaccine 03/28/23 Given pneumococcal 23-valent vaccine 1 05/28/09 Given [id number]-7vDOI 12y+ bivalent booster vax 08/28/22 Recorded influenza [...] inactivated 6 05/28/09 Gi isidra SARS-CoV-2 mRNA (sktrvga-psxn-vryei) vax 10/18/21 Given SARS-CoV-2 (COVID-19) mRNA BNT-162b2 vac 01/01/21 Recorded SARS-CoV-2 (COVID-19) mRNA BNT-162b2 vac 12/10/20 Recorded Influenza Virus Vaccine (oldterm) 06/13/19 Recorde d pneumococcal 13-valent vaccine 10/03/16 Given Fluvirin (oldterm) 05/23/11 Given Tet/diphth/pertussis, acel (oldterm) 05/23/11 Give n FluLaval (oldterm) 7 06/09/10 Given 1Result Comment: [employer] [id number] L287x 27feblo 2Result Comment: [facility]: 97281-353-22 3Admin Note: By Dr Granado 4Admin Note: Dr Granado 5Admin Note: [facility] 6Result Comment: Lot [id number] (E) [id number] 7Admin Note: dr hall Medications Alcohol Pads [...] 0 Refills, Maintenance, 10/03/23 1:25:00 EST, Tablet, [facility]/pharmacy #[id number], Partial fill upon patient request if the [...] Refills, Maintenance, 10/03/23 1:25:00 EST, CR Tablet, [facility]/pharmacy #[id number], Partial fill upon patient request if the prescription is fora schedule II opioid drug., 172, cm, 10/02/23 7:02:... Start Date: 10/03/23 Status: Ordered buPROPion 300 mg/24 hours (XL) oral tablet, extended release 1 tablet = 300 mg, By Mouth, Every 24 hours, New dose, # 90 tablet, 0 Refills, Maintenance, 04/13/24 16:10:00 EDT, [id number], Partial fill upon patient [...] 1:26:00 EST, Route to Pharmacy Electronically, [facility]/pharmacy #[id number], Partial fill upon patient request if the prescription is for a... Start Date: 10/03/23 Status: Ordered finasteride 5 mg oral tablet 1 tablet = 5 mg, By Mouth, Daily, blister pack, # 90 tablet, 0 Refills, Maintenance, 10/03/23 1:27:00 EST, Tablet, [facility]/pharmacy #[id number], Partial fill upon patient request if [...] Maintenance, 03/03/24 12:25:00 EDT, REC Powder, [facility]/pharmacy #[id number], Partial fill upon patient request if the [...] 04/13/24 16:23:00 EDT, [id number] Partial fill upon patient request if the prescription is for a schedule... Start Date: 04/13/24 Status: Ordered metoprolol succinate 200 mg oral capsule, extended release 1 capsule = 200 mg, By Mouth, Daily, blister pack, # 90 capsule, 0 Refills, Maintenance, 10/03/23 1:28:00 EST, ER Capsule, [facility]/pharmacy #[id number], Partial fill upon patient request if the prescription isfor a schedule II opioid drug., 172, cm, 10/02/23 7... Start Date: 10/03/23 Status: Ordered Myrbetriq 50 mg oral tablet, extended release 1 tablet = 50 mg, By Mouth, Daily, blister pack do not crush or chew, # 90 tablet, 0 Refills, Maintenance, 10/03/23 1:28:00 EST, ER Tablet, [facility]/pharmacy #[id number], Partial fill upon patient request if the prescription is for a schedule II opioid drug., 17... Start Date: 10/03/23 Status: Ordered ondansetron 4 mg oral tablet, disintegrating 1 tablet = 4 mg, By Mouth, Every 8 hours, PRN Nausea & Vomiting, # 9 tablet, 0 Refills, Maintenance, 01/30/24 22:44:00 EDT, Tablet, [facility]/pharmacy #[id number], Partial fill upon patient request if the prescription is for a schedule II opioid drug., 175, cm, 0... Start Date: 01/30/24 Stop Date: 02/02/24 Status: Ordered ondansetron 8 mg oral tablet, disintegrating 1 tablet = 8 mg, By Mouth, 3 times a day, PRN Nausea & Vomiting, # 9 tablet, 0 Refills, Maintenance, 01/14/24 20:00:00 EDT, DIS Tablet, [facility]/pharmacy #[id number], Partial fill upon patient request if [...] Weight Start Date: 02/10/24 Status: Ordered Pen Konawa, 31 G x 5 mm BD Ultra [...] 3 Refills, Maintenance, 04/13/24 16:23:00 EDT, Tablet, [facility]/pharmacy #[id number], Partial fill upon patient request if the prescription is for aschedule II opioid drug., 175, cm, 04/13/24 15:28:0... Start Date: 04/13/24 Status: Ordered tamsulosin 0.4 mg oral capsule 0.4 mg, 1, capsule, By Mouth, Daily, blister pack, # 90 capsule, Refills 0, Tot. Refills 0, Maintenance, 10/03/23 1:29:00 EST, Route to Pharmacy Electronically, [facility]/pharmacy #[id number], Partial fill upon patient request if [...] 3 Refills, Maintenance, 02/10/24 16:24:00 EDT, Solution, [facility]/pharmacy #[id number], Partial fill upon patient request if [...] Effective Dates Health Status Clinical Service Informant Type 2 diabetes mellitus with cardiac complication Discharge Diagnosis 04/13/24 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 Discharge Diagnosis 04/13/24 Dementia Discharge Diagnosis 04/13/24 Androgen deficiency Discharge Diagnosis 04/13/24 Vital Signs Most recent to oldest [Reference Range]: 1 Height 175 cm (04/13/24 3:28 PM) Weight 82.9 kg (04/13/24 3:28 PM) Oxygen Saturation [94-100 %] 96 % (04/13/24 3:28 PM) Pulse Rate [55-90 bpm] 63 bpm (04/13/24 3:28 PM) Body Mass Index [18.5-24.99 kg/m2] 27.07 kg/m2 *H* (04/13/24 3:28 PM) Blood Pressure [90-138/55-84 mm Hg] 136/ 80mm Hg (04/13/24 3:28 PM) Mode of Delivery (Oxygen) Room air (04/13/24 3:28 PM) Blood pressure sites Arm, right (04/13/24 3:28 PM) Weight Obtained Via Standing scale (04/13/24 3:28 PM) Social History Social History Type Response Smoking Status Former smoker, quit more than 30 days ago entered on: 12/29/18 Sex Note * Paul Cabrera: PERFORM Event Display: Patient Education/Instruction Authored Date: Ambulatory Adult Visit Summary [address] [address] Name: MILAGROS PERALES : 1950?? Visit: 04/13/2024 15:07?? Ambulatory Visit Instructions ?? Your Care Team Primary Care Provider Bailey Salas MD? This Visit Provider Bailey Ingram MD Your Diagnosis Type 2 diabetes mellitus with cardiac complication 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 Dementia Androgen deficiency Vitals Signs Pulse Rate: 63 bpm Height: 175 cm Systolic Blood Pressure: 136 mm Hg Weight: 82.9 kg Diastolic Blood Pressure: 80 mm Hg Body Mass Index:??27.07 kg/m2??High Oxygen Saturation: 96 % Body surface area: 2.01 What to do next Scheduled Follow-Up Appointments Saturday 3:40 PM EDT ?? With: Bailey Salas MD Where: [facility] [address] [place] [address]- Status: Pending Saturday 3:00 PM EST ?? Where: [facility] Status: Pending Follow-Up Appointments Follow Up with??Bailey Salas MD When:??07/14/2024 03:00 PM EST Where: [address] [place] [address]- Future Orders APOE Alzheimer's Risk - Once, [...] prescribing provider. What How Much When Instructions New Lisinopril (lisinopril 20 mg oral tablet) 1 tab(s) Oral Daily Refills: 3 blister pack ?? Pickup at [facility]/pharmacy #[id number] New Rosuvastatin (rosuvastatin 40 mg oral tablet) 1 tab(s) Oral Daily Refills: 3 blister pack ?? Pickup at [facility]/pharmacy #[id number] Changed BuPROpion (buPROPion 300 mg/ 24 hours (XL) oral tablet, extended release) 1 tab(s) Oral Every 24 hours New dose ?? Pickup at [facility]/pharmacy #[id number] Unchanged Amlodipine (amLODIPine 5 mg oral tablet) 1 tab(s) Oral Daily blister pack ?? Unchanged Aspirin (aspirin 81 mg oral delayed release tablet) 1 tab(s) Oral Daily blister pack ?? Unchanged cabotegravir-rilpivirine (Cabenuva 600/ 900 intramuscular [...] bedtime ?? Unchanged Durable Medical Equipment (Pen Konawa, 31 G x 5 mm BD Ultra [...] Injection Daily rotate injection sites ?? Unchanged Metoprolol (metoprolol succinate 200 mg [...] 240 Milliliter Oral Every 10 minutes Unchanged Tamsulosin (tamsulosin 0.4 mg oral capsule) 1 capsule Oral Daily blister pack ?? Pharmacy Information [facility]/pharmacy #[id number]: [id number] [facility] [address] [place] [id number] [phone] Medications and Immunizations Administered Medications Given During [...] are strongly encouraged to quit. Please call [employer] [facility] at [phone] or [phone] ([phone]) or log in to [email or web address] for referrals to smoking cessation programs. ?? The National Suicide Prevention Hotline is available 01/04 if you or someone you know needs to find a reason to keep living. By calling 9-685-071-[employer] [facility] (4764) you'll be connected to a skilled, trained counselor at a crisis center in your area. [facility] Portal You can view and manage your care through the patient portal or by using a health care ezra of your choosing. [employer] is a website that allows you to securely view your medical information including your hospital discharge summary, office visit summaries, medications and follow-up visits. You can also request appointments, renew medications, and request access to your medical information using a health care ezra of your choosing, or just ask a question. You can enroll at [email or web address] or register during your next office visit. [facility], in keeping with [facility] guidance, no longer requires face masks [...] care provider, you may find a [facility] provider by calling [facility] [employer] Link at [phone]. Patient Care team information Care Team Personnel Name: Nuzhat Sainz Position: [facility] Outreach Member Role: Lifetime Consulting Physician Name: Janel Mead RN Position: [facility] RN Member Role: Primary Care Nurse Name: Maritza CABEZAS, Bailey Goss Position: [facility] Physician - Primary Care Member Role: PCP Address: Address: [address] [place] [address]- [place] Name: Derik Gaines MD Position: [facility] Renal MD Member Role: Lifetime Consulting Physician Address: Address: [address] [place], [place] [address] [place] [address]- Name: Kiana Castelan [place] Position: [facility] HAMILTON CARLOS Member Role: Lifetime Consulting Physician Name: Bayron Brandt DO Position: [facility] Renal MD Member Role: Lifetime Consulting Physician Address: Address: [address] [facility] [place] [address]- Name: Eric Garcia RN Position: S RN Member Role: Primary Care Nurse Name: Jaclyn Schulte RN Position: S RN Member Role: Primary Care Nurse Name: Kavon Liu MD Position: Reference Physician Member Role: Lifetime Consulting Physician Address: Address: [address] [place] [address] [address] [facility] [place] [address]- Care Team Related Persons Name: BO PERALES Address: home [address] [place] [address] Name: DANA BALTAZAR Address: home [address] [place] [address] Name: NALDO AVALOS Address: home [address] [place] [address] Name: NALDO BARNARD Address: home [address] [place] [address]
--- OUTSIDE RECORDS SUMMARY | 2024-06-17 06:04 | XMS_ITS | Continuity of Care Document ---
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 Refills 1, Maintenance, 07/10/16 21:05:57, Route to Pharmacy Electronically, [id number], [facility]/pharmacy #[id number] Start Date: 07/10/16 Stop Date: 01/06/17 Status: Ordered aspirin 81 mg oral enteric coated tablet 1 tablet = 81 mg, By Mouth, Daily, # 30 tablet, 3 Refills, Maintenance Start Date: 05/27/09 Status: Ordered BD UF RADHA PEN NEEDLE [id number] See Instructions, # 120 Unknown, Refills 5 Tot. Refills 5, USE DAILY, [facility]/pharmacy #[id number] Start Date: 07/10/19 Status: Ordered buPROPion 150 mg/24 hours (XL) oral tablet, extended release 1 tablet = 150 mg, By Mouth, Every 24 hours, # 90 tablet, 1 Refills, Maintenance, 08/26/19 9:56:00 EST, ER Tablet, [facility]/pharmacy #[id number], 1 tablet By Mouth Every [...] Maintenance, 07/07/18 11:08:24 EDT,Route to Pharmacy Electronically, [id number], [facility]/pharmacy #[id number] Start Date: 07/07/18 Status: Ordered metFORMIN 500 mg oral tablet, extended release 2 tablet = 1,000 mg, By Mouth, Daily, # 180 tablet, 1 Refills, Maintenance, 11/09/19 16:29:00 EST, [facility]/pharmacy #[id number], D/C RX on file 1000mg [...] CAPSULE BY MOUTH EVERY DAY, [facility]/pharmacy #[id number] Start Date: 04/06/19 Status: Ordered tamsulosin 0.4 mg oral capsule See Instructions, TAKE 1 CAPSULE BY MOUTH EVERY DAY, # 90 capsule, Refills 1, Tot. Refills 1, Soft Stop, 02/09/20 14:57:00 EDT, Instructions Replace Required Details, Route to Pharmacy Electronically, [facility]/pharmacy #[id number], 170.5, cm, 01/31/20 10:18:00 E... Start [...] Refills, Maintenance, 09/18/19 15:13:00 EST, [facility]/pharmacy #[id number], D/C RX ON FILE FOR [...]
--- OUTSIDE RECORDS SUMMARY | 2024-06-17 06:04 | XMS_ITS | Continuity of Care Document ---
Author Organization [facility] Address [address] [place] [address]- Care Team Providers Care Informatica Name Role Phone Maritza CABEZAS, Bailey Goss Primary Care Physic pierre [facility] Date[facility]s): 01/13/21 - 02/12/21 [facility] [address] [place] [id number] Allergies, Adverse Reactions, Alerts Substance Reaction Severity [...] 3Admin Note: [facility] 4Result Comment: Lot [id number] ([id number]) [id number] 5Admin Note: dr hall 6Result Comment: [employer] [id number] L287x 27feblo Medications amlodipine 10 mg oral tablet 10 mg, 1, tablet, By Mouth, Daily, pharmacy wants 90 days, # 90 tablet, Refills 1, Tot. Refills 1, Maintenance, 07/10/16 21:05:57, Route to Pharmacy Electronically, [id number], [facility]/pharmacy #[id number] Start Date: 07/10/16 Stop Date: 01/06/17 Status: Ordered aspirin 81 mg oral enteric coated tablet 1 tablet = 81 mg, By Mouth, Daily, # 30 tablet, 3 Refills, Maintenance Start Date: 05/27/09 Status: Ordered BD UF RADHA PEN NEEDLE [id number] See Instructions, # 120 Unknown, Refills 5 Tot. Refills 5, USE DAILY, [facility]/pharmacy #[id number] Start Date: 07/10/19 Status: Ordered BD [...] tablet, 1 Refills, Maintenance, 06/13/20 8:06:00 EDT, [id number], 90, TAKE 1 TABLET BY MOUTH EVERY 24 HOURS, 170, cm, 03/29/20 10:57:00 EDT, Height, 92, kg, 09/14/19 14:18:00 EST, Dry Weight Start Date: 06/13/20 Status: Ordered Crestor 40 mg oral tablet 1 tablet = 40 mg, By Mouth, Daily, # 90 tablet, 3 Refills, Maintenance, 08/30/20 8:19:00 EST, Tablet, [facility]/pharmacy #[id number], 170, cm, 03/29/20 10:57:00 EDT, Height, [...] BLOOD SUGARS 3 TIMES A DAY, [facility]/pharmacy #[id number] Start Date: 03/10/19 Status: Ordered Freestyle [...] Maintenance, 07/07/18 11:08:24 EDT,Route to Pharmacy Electronically, [id number], [facility]/pharmacy #[id number] Start Date: 07/07/18 Status: Ordered metoprolol [...] Instructions Replace Required Details, Route to Pharmacy Electronically,[facility]/pharmacy #[id number], 170, cm, 03/29/20 10:57:00 EDT,... Start Date: 08/31/20 Status: Ordered tamsulosin 0.4 mg oral capsule See Instructions, # 90 capsule, TAKE 1 CAPSULE BY MOUTH EVERY DAY, [facility]/pharmacy #[id number] Start Date: 04/06/19 Status: Ordered Testopel [...]
--- OUTSIDE RECORDS SUMMARY | 2024-06-17 06:04 | XMS_ITS | Continuity of Care Document ---
Author Organization [facility] Address [address] [place] [address]- Care Team Providers Care Network Security Officer Name Role Phone Bailey Salas MD Primary Care Physic pierre [facility] - 08/24/22 [facility] [address] [place] [address]- [place] Encounter Diagnosis Erythrocytosis(Discharge Diagnosis) - 08/17/22 Attending Physician: Bailey Salas MD Allergies, Adverse Reactions, Alerts No Known Allergies Immunizations Given and Recorded Vaccine Date Status Refusal Reason SARS-CoV-2 mRNA ([id number]) vax 10/18/21 Given influenza virus vaccine, inactivated [...] vaccine 7 05/28/09 Given 1Result Comment: [facility]: 53173-342-46 2Admin Note: By Dr Granado 3Admin Note: Dr Granado 4Admin Note: [facility] 5Result Comment: Lot [id number] 6Admin Note: dr hall 7Result Comment: [employer] [id number] 27feblo Medications Aricept 5 mg oral tablet 5 mg, 1, tablet, By Mouth, Daily at bedtime, For memory loss, # 90 tablet, Refills 3, Tot. Refills 3, Maintenance, 08/17/22 17:19:00 EST, Route to Pharmacy Electronically, [facility]/pharmacy #[id number], Partialfill upon patient request if the prescription is fo... Start Date: 08/17/22 Status: Ordered aspirin 81 mg oral delayed release tablet = 81 mg, By Mouth, Daily, # 30 tablet, 0 Refills, Maintenance, 11/10/21 15:20:00 EST, EC Tablet, [facility]/pharmacy #[id number], Partial fill upon patient [...] tablet, 1 Refills, Maintenance, 04/20/22 13:02:00 EDT, [facility]/pharmacy #[id number], 1 tablet By Mouth [...] 10:20:00EST, 11/10/21 10:20:00 EST, Tablet, [facility]/pharmacy #[id number], 175, cm, 10/27/21 13:06:00 [...] 8 Refills, Maintenance, 04/17/22 12:47:00 EDT, [facility]/pharmacy #[id number], Partial fill upon patient request if the prescription is for... Start Date: 04/17/22 Stop Date: 01/12/23 Status: Ordered Pen [place], 31 G x 5 mm BD Ultra [...] Details, Route to Pharmacy Electronically, [facility]/pharmacy #[id number], 175, cm, 02/06/22 16:03:00 EDT... Start [...] Respiratory symptom 2 Confirmed Active 1mild 2snoring Diagnosis Diagnosis Type Effective Dates Health Status inical Service Informant Erythrocytosis Discharge Diagnosis 08/17/22 Vital Signs Most recent to oldest [Reference Range]: 1 Height 175 cm (08/17/22 4:38 PM) Weight 82.3 kg (08/17/22 4:38 PM) Oxygen Saturation [94-100 %] 95 % (08/17/22 4:38 PM) Pulse Rate [55-90 bpm] 82 bpm (08/17/22 4:38 PM) Body Mass Index [18.5-24.99 kg/m2] 26.87 kg/m2 *H* (08/17/22 4:38 PM) Blood Pressure [90-138/55-84 mm Hg] 127/ 84mm Hg (08/17/22 4:38 PM) Blood pressure sites Arm, left (08/17/22 4:38 PM) Social History Social History Type Response Smoking Status Former smoker, quit more than 30 days ago entered on: 12/29/18 Sex Note * Jackie Sanchez: PERFORM, SIGN, VERIFY Event Display: Patient Education/Instruction Authored Date: [id number] [facility] *[facility] Clinical Summary Name MILAGROS PERALES Age 72 Years 1950 PCP Bailey Salas MD PCP Visit Date 08/17/2022 15:41:00 Patient Instructions 1. Go to the laboratory to recheck your labs. 2. You have a new medication for your memory loss. It is called Aricept 5 mg. Take 1 tablet at bedtime daily. Additional Instructions: Scheduled Appointments?? Future Appointments ?*[facility]??[place] ?[address]??[place],??[place],??[address] ?Phone:??--?Fax:??-- ?Appt. Date:??09/26/2022?2:00 PM ?Scheduled Provider:??Bailey Ingram MD ?*[facility]??Cardiology1 ?[address]??[place],??[place],??[address] ?Phone:??--?Fax:??-- ?Appt. Date:??10/03/2022?2:25 PM ?Scheduled Provider:??Ron CABEZAS, Jorge Campo Follow-Up Instructions ?? With: Address: When: [facility] [place] [address] Business (1) 09/26/2022 2:00 PM With: Address: When: 1 month Comments: FU memory Diagnosis Secondary polycythemia Medications: Please continue your medications until treatment is completed or stopped by your provider. Discuss any questions related to medications with your provider. New Medications [id number], [address] [place] [phone], [phone] Donepezil (Aricept 5 mg oral tablet) 1 tab(s) Oral Daily at Bedtime. For memory loss. Refills: 3. Next Dose: Medications to Continue [...] intramuscular suspension, extended release) Intramuscular. Next Dose: dulaglutide (Trulicity Pen 3 mg/0.5 [...] 2. Next Dose: Durable Medical Equipment (Pen [place], 31 G x 5 mm BD Ultra [...] NKA Medications Given This Visit Future Orders ?CBC w/ Differential? Order Date:08/17/22?- Complete on or after?08/17/22 Vital Signs Height 175 cm Weight 82.3 kg BMI 26.87 kg/m2 Blood Pressure 127 mm Hg/84 mm Hg Temperature Pulse Rate 82 bpm Respiratory Rate 02 Sat Mode of Delivery 95 %/ You can now view a summary of your hospital visit from the comfort of your home through a free online portal called [employer]. [employer] is a website that allows you to securely view your medical information including discharge summary, medications and follow-up visits. ??You can alsosend a secure electronic message to your doctor???s office to request appointments, renew medications or just ask a question. You can enroll at [email or web address] or register during your next office visit. [...] primary care provider, you may find a [facility] provider by calling [facility] iCreate Link at [phone]. For information about the plan of care [...] Care Team Personnel Name: Nuzhat Sainz Position: [facility] Outreach Member Role: Lifetime Consulting Physician Name: Maritza CABEZAS, Bailey Goss Position: [facility] Primary Care Physician Member Role: PCP Address: Address: [address] [place] [address]- Name: Derik Gaines MD Position: [facility] Renal MD Member Role: Lifetime Consulting Physician Address: Address: [address] [place], [place] [address]E [facility] [place] [address]- Name: Jazmin Florez RN Position: [facility] RN Supv Member Role: Primary Care Nurse Name: Kiana Castelan Position: [facility] Outreach Member Role: Lifetime Consulting Physician Name: Bayron Brandt DO Position: [facility] Renal MD Member Role: Lifetime Consulting Physician Address: Address: [address] [place] [address] [address] [facility] [place] [address]- Name: Amie Caldwell PharmD Position: [facility] Associate Professional Member Role: Lifetime Consulting Provider Address: Address: [address] [place] [address]- Name: Eric Garcia RN Position: [facility] RN Member Role: Primary Care Nurse Name: Jaclyn Schulte RN Position: [facility] RN Member Role: Primary Care Nurse Name: Kavon Liu MD Position: [facility] Physician (General Medicine) Member Role: Lifetime Consulting Physician Address: Address: [address] [place] [address], [address] [place] [address]- Care Team Related Persons Name: DANA PERALES Address: home [address] [place] [address] Name: BO PERALES Address: home [address] [place] [address] Name: DANA BALTAZAR Address: home [address] [place] [address] Name: NALDO AVALOS Address: home [address] [facility] [address] [place] [address] Name: NALDO BARNARD Address: home [address] [place] [address]
--- OUTSIDE RECORDS SUMMARY | 2024-06-17 06:04 | XMS_ITS | Continuity of Care Document ---
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 Name Role Phone Maritza CABEZAS, Bailey Goss Primary Care Physic pierre [facility]): [facility]23 - 10/25/23 [facility] [address] [place] [address]- Attending Physician: Grabiel Coleman MD Referring Physician: Maritza CABEZAS, Bailey Goss Allergies, Adverse Reactions, Alerts No Known Allergies Immunizations Given and Recorded Vaccine Date Status Refusal Reason tetanus/diphtheria/pertussis, acel(Tdap) 03/28/23 Given pneumococcal 23-valent vaccine 03/28/23 Given pneumococcal 23-valent vaccine 1 05/28/09 Given SARS-CoV-2 mRNA ([id number]) vax 10/18/21 Given influenza virus vaccine, inactivated [...] FluLaval (oldterm) 7 06/09/10 Given 1Result Comment: [employer] [id number] 27feblo 2Result Comment: [facility]NOTE 3]: [id number] 3Admin Note: By Dr Granado 4Admin Note: Dr Granado 5Admin Note: [facility] 6Result Comment: Lot [id number] ([id number]) [id number] 7Admin Note: dr hall Medications Alcohol Pads [...] Refills, Maintenance, 10/03/23 1:26:00 EST, XL Tablet, [facility]/pharmacy #[id number], Partial fill upon patient request if [...] 172,cm, 10/02/23 7:02:00 EST, Height, 76.9, kg, 2... Start Date: 10/03/23 Status: Ordered donepezil 10 mg oral tablet 10 mg, 1, tablet, By Mouth, Daily at bedtime, blister pack, # 90 tablet, Refills 0, Tot. Refills 0,Maintenance, 10/03/23 1:26:00 EST, Route to Pharmacy Electronically, [facility]/pharmacy #[id number], Partial fill upon patient request if the prescription is for a... Start Date: 10/03/23 Status: Ordered finasteride 5 mg oral tablet 1 tablet = 5 mg, By Mouth, Daily, blister pack, # 90 tablet, 0 Refills, Maintenance, 10/03/23 1:27:00 EST, Tablet, [facility]/pharmacy #[id number], Partial fill upon patient request if [...] 10/03/23 1:27:00 EST, Route to Pharmacy Electronically, [facility]/pharmacy #[id number], Partial fill upon patient request if the prescription is for a schedule I... Start Date: 10/03/23 Status: Ordered metoprolol succinate 200 mg oral capsule, extended release 1 capsule = 200 mg, By Mouth, Daily, blister pack, # 90 capsule, 0 Refills, Maintenance, 10/03/23 1:28:00 EST, ER Capsule, [facility]/pharmacy #[id number], Partial fill upon patient request if the prescription isfor a schedule II opioid drug., 172, cm, 10/02/23 7... Start Date: 10/03/23 Status: Ordered Myrbetriq 50 mg oral tablet, extended release 1 tablet = 50 mg, By Mouth, Daily, blister pack do not crush or chew, # 90 tablet, 0 Refills, Maintenance, 10/03/23 1:28:00 EST, ER Tablet, [facility]/pharmacy #[id number], Partial fill upon patient request if [...] 10/03/23 Stop Date: 11/02/23 Status: Ordered Pen [place], 31 G x 5 mm BD Ultra [...] 0 Refills, Maintenance, 10/03/23 1:28:00 EST, Tablet, [facility]/pharmacy #[id number], Partial fill upon patient request if the prescription is for a schedule II opioid drug., 172, cm, 10/02/23 7:02:00... Start Date: 10/03/23 Status: Ordered tamsulosin 0.4 mg oral capsule 0.4 mg, 1, capsule, By Mouth, Daily, blister pack, # 90 capsule, Refills 0, Tot. Refills 0, Maintenance, 10/03/23 1:29:00 EST, Route to Pharmacy Electronically, [facility]/pharmacy #[id number], Partial fill upon patient request if [...] oldest [Reference Range]: 1 Height 172 cm (10/18/23 1:12 PM) Weight 79.7 kg (10/18/23 1:12 PM) Oxygen Saturation [94-100 %] 99 % (10/18/23 1:12 PM) Pulse Rate [55-90 bpm] 68 bpm (10/18/23 1:12 PM) Body Mass Index [18.5-24.99 kg/m2] 26.94 kg/m2 *H* (10/18/23 1:12 PM) Blood Pressure [90-138/55-84 mm Hg] 130/ 75mm Hg (10/18/23 1:12 PM) Mode of Delivery (Oxygen) Room air (10/18/23 1:12 PM) Blood pressure sites Arm, left (10/18/23 1:12 PM) Weight Obtained Via Bed scale (10/18/23 1:12 PM) Social History Social History Type Response Smoking Status Former smoker, quit more than 30 days ago entered on: 12/29/18 Sex Consult note * [place] CABEZAS, Grabiel Lepe: PERFORM Event Display: Consultation Note Authored Date: [id number] Patient: ??PERALESBRAULIOMILAGROS ? Age:??73 Years?Sex:??Male?:??1950?? 1. Introduction to session I provided a brief overview about why we needed to have a genetic counseling session prior to assessing ApoE genotype, and what we needed to accomplish during this session ?? 2. Basic clinical description of AD and dementia Reviewed with??MILAGROS PERALES??the currently known molecular mechanisms of AD (in particular, HEIDY processing to amyloid, dynamics and kinetics of amyloid trafficking from the membrane, and breakdown ofamyloid through a and g secretase enzymes. Emphasized that at this time we still do not know the underlying cause of AD. Then explained difference between Alzheimer???s disease, and the more general term of dementia ?? 3. Impact of APOE on AD risk Provided current estimates:?3/??3 (???wild type?genotype, ~15% risk of AD at age 72,?3/??4 (~30% risk of AD at age 72),?4/??4 (~60% risk of AD at age 72). Emphasized that genetics is notdestiny, and that 40% of persons with?4/??4 do not proceed to dementia. Emphasized both known and unknown environmental features that modify these risks. ?? 4. Inheritance of APOE gene; address possible implications for children and siblings Discussed underlying mechanics of autosomal inheritance. Discussed in detail implications (knowledge of genotype, anxiety, etc.) that may accompany knowledge of this information ?? 5. Considerations for learning APOE results ?Psychological impact?patient anticipates none ?Familial impact?son very interested in his health status, would approve of knowing status ?? 6. Review Genetic Information Nondiscrimination Act (pertains to [place] only) Informed??MILAGROS PERALES??that YEE 2007??protects individuals against discrimination based on their genetic information in health coverage and in employment. ?? 7. Address specific concerns or considerations about learning APOE result MILAGROS PERALES??had none. ?? 8. State option to either proceed with disclosure of APOE genetic testing results, postpone disclosure to later date, or decline disclosure of APOE results At this time,??MILAGROS PERALES??opts to proceed with genetic testing for ApoE genotype as part of the process of qualifying for lecanemab therapy for early Alzheimer???s disease. In my assessment, she is making an informed decision, understands the potential caveats associated with this action, can talk to me about these caveats, and clearly has capacity to make this decision for herself. ?? We will proceed with testing, and f/u with patient for result disclosure and education reinforcement regarding treatment risks that this information may predict. ?? This information was adapted from Helen et al., Alzheimer???s Prevention Initiative Generation Program: Development of an??APOE??genetic counseling and disclosure process in the context of clinical trials.??Alzheimer? s & Dementia: Translational Research & Clinical Interventions??5:705-120, 2019. In particular, the framework presented in Table 2 was modified to meet needs of clinical practice, and remove references or issues specific to clinical research studies. Patient Care team information Care Team Personnel Name: Nuzhat Sainz Position: [facility] Outreach Member Role: Lifetime Consulting Physician Name: Janel Mead RN Position: [facility] RN Member Role: Primary Care Nurse Name: Maritza CABEZAS, Bailey Goss Position: [facility] Physician - Primary Care Member Role: PCP Address: Address: [address] [place] [address]- [place] Name: Derik Gaines MD Position: [facility] Renal MD Member Role: Lifetime Consulting Physician Address: Address: [address] [place], [place] [address] [place] [address]- [place] Name: Kiana Castelan [place] Position: [facility] [place] Member Role: Lifetime Consulting Physician Name: Bayron Brandt DO Position: [facility] Renal MD Member Role: Lifetime Consulting Physician Address: Address: [address] [place], [place] [address] [place] [address]- Name: Amie Caldwell PharmD Position: [facility] Associate Professional Member Role: Lifetime Consulting Provider Address: Address: [address] [facility] [place] [address]- [place] Name: Eric Garcia RN Position: [facility] RN Member Role: Primary Care Nurse Name: Jaclyn Schulte RN Position: [facility] RN Member Role: Primary Care Nurse Name: Kavon Liu MD Position: Reference Physician Member Role: Lifetime Consulting Physician Address: Address: [address] [place] [address] [address] [facility] [place] [address]- Care Team Related Persons Name: DANA PERALES Address: home [address] [place] [address] Name: BO PERALES Address: home [address] [place] [address] Name: DANA BALTAZAR Address: home [address] [place] [address] Name: NALDO AVALOS Address: home [address] [place] [address] Name: NALDO BARNARD Address: home [address] [place] [address]
--- OUTSIDE RECORDS SUMMARY | 2024-06-17 06:04 | XMS_ITS | Continuity of Care Document ---
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: [id number] 2Admin Note: By Dr Granado 3Admin Note: Dr Granado 4Admin Note: [facility] 5Result Comment: Lot [id number] 6Admin Note: dr hall 7Result Comment: [employer] [id number] 27feblo Medications amLODIPine 2.5 mg oral tablet 2.5 mg, 1, tablet, By Mouth, Daily, # 90 tablet, Refills 3, Tot. Refills 3, Maintenance, 10/03/22 15:00:00 EST, Route to Pharmacy Electronically, [facility]/pharmacy #[id number], Partial fill upon patient requestif the prescription is for a schedule II opioid sandip... Start Date: 10/03/22 Status: Ordered Aricept 10 mg oral tablet 10 mg, 1, tablet, By Mouth, Daily at bedtime, New dose, # 90 tablet, Refills 3, Tot. Refills 3, Maintenance, 12/28/22 16:42:00 EDT, Route to Pharmacy Electronically, [facility]/pharmacy #[id number], Partial fill upon patient request if the prescription is for a sc... Start Date: 12/28/22 Status: Ordered aspirin 81 mg oral delayed release tablet = 81 mg, By Mouth, Daily, # 30 tablet, 0 Refills, Maintenance, 11/10/21 15:20:00 EST, EC Tablet, [facility]/pharmacy #[id number], Partial [...] tablet, 1 Refills, Maintenance, 04/20/22 13:02:00 EDT, [facility]/pharmacy #[id number], 1 tablet By Mouth [...] each, 8 Refills, Maintenance, 01/12/23 12:47:00 EDT, [facility]/pharmacy #[id number], Partial fill upon patient request if th... Start Date: 01/12/23 Stop Date: 10/09/23 Status: Ordered Pen [place], 31 G x 5 mm BD Ultra [...] Replace Required Details, Route to Pharmacy Electronically, [facility]/pharmacy #[id number], 175, cm, 10/03/22 14:39:00 EST... Start Date: 10/29/22 Status: Ordered Testopel = 300 mg, Subcutaneous Infusion, Every 3 months, 0 Refills, Maintenance, 03/26/15 23:08:01 Start Date: 03/26/15 Status: Ordered Tresiba FlexTouch 200 units/mL subcutaneous solution See Instructions, Take 22 units daily at lunch. E11.65, # 9 mL, 10 Refills, Maintenance, 12/31/22 11:09:00 EDT, [facility]/pharmacy #[id number], 175, cm, 12/28/22 15:56:00 EDT, Height, 81.65, kg, 06/19/22 9:04:00EDT, Dry Weight Start Date: 12/31/22 Status: Ordered Trulicity Pen 3 mg/0.5 mL subcutaneous solution 0.5 mL = 3 mg, Subcutaneous Injection, Every week, Take 3mg once weekly. E11.65., # 2 mL, 5 Refills, Maintenance, 10/18/22 16:22:00 EST, Solution, [facility], Partial fill upon patient [...] Care Team Personnel Name: Nuzhat Sainz Position: [facility] Outreach Member Role: Lifetime Consulting Physician Name: Maritza CABEZAS, Bailey Goss Position: [facility] Physician - Primary Care Member Role: PCP Address: Address: [address] [address]- [place] Name: Derik Gaines MD Position: [facility] Renal MD Member Role: Lifetime Consulting Physician Address: Address: [address] [facility] [address] [facility] [place] [address]- [place] Name: Jazmin Florez RN Position: [facility] RN Supv Member Role: Primary Care Nurse Name: Kiana Castelan Position: [facility] Outreach Member Role: Lifetime Consulting Physician Name: Bayron Brandt DO Position: [facility] Renal MD Member Role: Lifetime Consulting Physician Address: Address: [address] [place] [address] [address] [facility] [place], [place] - Name: Amie Caldwell PharmD Position: [facility] Associate Professional Member Role: Lifetime Consulting Provider Address: Address: [address] [facility] [place] [address]- [place] Name: Eric Garcia RN Position: [facility] RN Member Role: Primary Care Nurse Name: Jaclyn Schulte RN Position: [facility] RN Member Role: Primary Care Nurse Name: Kavon Liu MD Position: Reference Physician Member Role: Lifetime Consulting Physician Address: Address: [address] [place] [address] [address] [facility] [place] [address]- Care Team Related Persons Name: DANA PERALES Address: home [address] [place] [address] Name: BO PERALES Address: home [address] [place] [address] Name: DANA BATLAZAR Address: home [address] [place] [address] Name: NALDO AVALOS Address: home [address] [place] [address] Name: NALDO BARNARD Address: home [address] [place] [address]
--- OUTSIDE RECORDS SUMMARY | 2024-06-17 06:04 | XMS_ITS | Continuity of Care Document ---
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 Name Role Phone Maritza CABEZAS, Bailey Goss Primary Care Physic pierre [facility]): 10[facility] - 11/24/21 [facility] [address] [place] [address]- Attending Physician: AdmMarie pizano Admitting Physician: Admtr, Ar8 Referring Physician: Admtr, Ar8 Allergies, Adverse Reactions, Alerts No Known Allergies Immunizations Given and Recorded Vaccine Date Status Refusal Reason SARS-CoV-2 mRNA (kexjhoz-ogeb-jfaou) vax 10/18/21 Given influenza virus vaccine, inactivated [...] 1Result Comment: [facility]: 79791-571-95 2Admin Note: By Dr Granado 3Admin Note: Dr Granado 4Admin Note: [facility] 5Result Comment: Lot [id number] 6Admin Note: dr hall 7Result Comment: [employer] [id number] L287x 27feblo Medications abacavir 300 mg oral [...] tablet, 0 Refills, Maintenance, 11/10/21 15:20:00 EST, [facility]/pharmacy #[id number], 1 tablet By Mouth Every 24 hours, 175, cm, 10/27/21 13:06:00 EST, Height, 78.5, kg,10/10/21 0:43:00 EST, Dry Weight Start Date: 11/10/21 Status: Ordered Crestor 40 mg oral tablet 1 tablet = 40 mg, By Mouth, Daily, for 90 days, # 90 tablet, 3 Refills, Hard Stop 11/05/22 10:20:00EST, 11/10/21 10:20:00 EST, Tablet, [facility]/pharmacy #[id number], 175, cm, 10/27/21 13:06:00 EST, [...] 0 Refills, Maintenance, 11/10/21 15:20:00 EST, Tablet, [facility]/pharmacy #[id number], Partial fill upon patient request if the prescription is for a schedule II opioid drug., 175, cm, 10/27/21 13:06:00 EST, Height... Start Date: 11/10/21 Status: Ordered metoprolol 50 mg oral tablet 50 mg, 1, tablet, By Mouth, 2 times a day, # 60 tablet, Refills 0, Tot. Refills 0, Maintenance, 11/10/21 15:20:00 EST, Route to Pharmacy Electronically, [facility]/pharmacy #[id number], Partial fill upon patient request if the prescription is for a schedule II opi... Start Date: 11/10/21 Status: Ordered NovoLOG FlexPen 100 units/mL subcutaneous solution See Instructions, Subcutaneous Injection, 3 times daily before meals; 100-150 10 units; 151-200 12 units; 201-250 14 units; 251-300 16 units; 301-350 18 units; Over 350 20 units, # 3 each, 5 Refills,Maintenance, 10/19/21 12:47:00 EST, [facility]... Start Date: 10/19/21 Stop Date: 04/17/22 Status: Ordered Pen [place], 31 G x 5 mm BD Ultra [...] Replace Required Details, Route to Pharmacy Electronically, [facility]/pharmacy #[id number], 175, cm, 10/27/21 13:06:00 EST... [...]
--- OUTSIDE RECORDS SUMMARY | 2024-06-17 06:04 | XMS_ITS | Continuity of Care Document ---
Author Organization [facility] Address [address] [place] [address]- Care Team Providers Care Television Journalist Name Role Phone Maritza CABEZAS, Bailey Goss Primary Care Physic pierre [facility] Date[facility]): 11[facility]24[facility]21 - 12/24/[facility] [address] [place] [id number] Attending Physician: AdmMarie pizano Admitting Physician: Admtr, Ar8 Referring Physician: Admtr, Ar8 Allergies, Adverse Reactions, Alerts No Known Allergies Immunizations Given and Recorded Vaccine Date Status Refusal Reason SARS-CoV-2 mRNA (csqjtob-wolt-gebbm) vax 10/18/21 Given influenza virus vaccine, inactivated [...] 23-valent vaccine 7 05/28/09 Given 1Result Comment: [facility]: [id number] 2Admin Note: By Dr Granado 3Admin Note: Dr Granado 4Admin Note: [facility] 5Result Comment: Lot [id number]) [id number] 6Admin Note: dr hall 7Result Comment: [employer] [id number] L287x 27feblo Medications abacavir 300 mg oral [...] tablet, 0 Refills, Maintenance, 12/20/21 15:57:00 EDT, [facility]/pharmacy #[id number], 1 [...] 0 Refills, Maintenance, 11/10/21 15:20:00 EST, Tablet, [facility]/pharmacy #[id number], Partial fill upon patient request if the prescription is for a schedule II opioid drug., 175, cm, 10/27/21 13:06:00 EST, Height... Start Date: 11/10/21 Status: Ordered metoprolol 50 mg oral tablet 50 mg, 1, tablet, By Mouth, 2 times a day, # 180 tablet, Refills 0, Tot. Refills 0, Maintenance, 12/20/21 15:57:00 EDT, Route to Pharmacy Electronically, [facility]/pharmacy #[id number], Partial fill [...] 10/19/21 Stop Date: 04/17/22 Status: Ordered Pen [place], 31 G x 5 mm BD Ultra [...] [facility]/pharmacy #[id number], 175, cm, 12/06/21 8:15:00 EDT,... Start Date: 12/20/21 Status: Ordered Testopel = 300 mg, Subcutaneous Infusion, Every 3 months, 0 Refills, Maintenance, 03/26/15 23:08:01 Start Date: 03/26/15 Status: Ordered Tresiba FlexTouch 200 units/mL subcutaneous solution See Instructions, Take 28 units daily at lunch. E11.65, # 18 mL, 10 Refills, Maintenance, 03/31/21 10:22:00 EDT, [facility]/pharmacy #[id number], 170, cm, 03/20/21 9:07:00 EDT, Height, 92, kg, 09/14/19 14:18:00 EST, Dry Weight Start Date: 03/31/21 Status: Ordered Trulicity Pen 3 mg/0.5 mL subcutaneous solution 0.5 mL = 3 mg, Subcutaneous Injection, Every week, Take 3mg once weekly. E11.65., # 2 mL, 5 Refills, Maintenance, 10/26/21 16:50:00 EST, Solution, [facility]/pharmacy #0693, Partial fill [...]
--- OUTSIDE RECORDS SUMMARY | 2024-06-17 06:04 | XMS_ITS | Continuity of Care Document ---
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 Meter Operator Name Role Phone Geoff Glover DO Primary Care Physician Encounter [facility] Date(s): 10/15/19 - 10/22/[facility] [address] [place] [address]- [facility] Encounter Diagnosis Thigh lump(Discharge Diagnosis) - 10/15/19 Diabetes mellitus - adult onset(Discharge Diagnosis) - 10/15/19 Depression(Discharge Diagnosis) - 10/15/19 Androgen deficiency(Discharge Diagnosis) - 10/15/19 Hypertension(Discharge Diagnosis) - 10/15/19 daytime somnolence(Discharge Diagnosis) - 10/15/19 Attending Physician: Geoff Glover DO Allergies, Adverse [...] 3Admin Note: [facility] 4Result Comment: Lot [id number] (E) [id number] 5Admin Note: dr hlal 6Result Comment: [employer] [id number] L287x 27feblo Medications amlodipine 10 mg oral tablet 10 mg, 1, tablet, By Mouth, Daily, pharmacy wants 90 days, # 90 tablet, Refills 1, Tot. Refills 1, Maintenance, 07/10/16 21:05:57, Route to Pharmacy Electronically, [id number], [facility]/pharmacy #[id number] Start Date: 07/10/16 Stop Date: 01/06/17 Status: Ordered aspirin 81 mg oral enteric coated tablet 1 tablet = 81 mg, By Mouth, Daily, # 30 tablet, 3 Refills, Maintenance Start Date: 05/27/09 Status: Ordered BD UF RADHA PEN NEEDLE [id number] See Instructions, # 120 Unknown, Refills 5 Tot. Refills 5, USE DAILY, [facility]/pharmacy #[id number] Start Date: 07/10/19 Status: Ordered buPROPion 150 mg/24 hours (XL) oral tablet, extended release 1 tablet = 150 mg, By Mouth, Every 24 hours, # 90 tablet, 1 Refills, Maintenance, 08/26/19 9:56:00 EST, ER Tablet, [facility]/pharmacy #[id number], 1 tablet By Mouth Every [...] CHECK BLOOD SUGARS 3 TIMES A DAY, [facility]/pharmacy #0693 Start Date: 03/10/19 Status: Ordered [...] Maintenance, 07/07/18 11:08:24 EDT,Route to Pharmacy Electronically, [id number], [facility]/pharmacy #[id number] Start Date: 07/07/18 Status: Ordered metFORMIN 500 mg oral tablet, extended release 2 tablet = 1,000 mg, By Mouth, Daily, # 120 tablet, 11 Refills, Maintenance, 10/21/18 17:17:09 EST,[facility]/pharmacy #0693, D/C RX on file 1000mg [...] TAKE 1 CAPSULE BY MOUTH EVERY DAY, [facility]/pharmacy #[id number] Start Date: 06/01/19 Status: Ordered [...] mL, 5 Refills, Maintenance, 09/18/19 15:13:00 EST, [facility]/pharmacy #0693, D/C RX ON FILE FOR [...] mild(Confirmed) Active Respiratory symptom(Confirmed) 1 Active 1snoring Diagnosis Diagnosis Type Effective Dates Health Status Clinical Service Informant Thigh lump Discharge Diagnosis 10/15/19 Diabetes mellitus - adult onset Discharge Diagnosis 10/15/19 Depression Discharge Diagnosis 10/15/19 Androgen deficiency Discharge Diagnosis 10/15/19 Hypertension Discharge Diagnosis 10/15/19 daytime somnolence Discharge Diagnosis 10/15/19 Vital Signs Most recent to oldest [Reference Range]: 1 Height 170.5 cm (10/15/19 2:23 PM) Weight 93.5 kg (10/15/19 2:23 PM) Oxygen Saturation [94-100 %] 98 % (10/15/19 2:23 PM) Pulse Rate [55-90 bpm] 77 bpm (10/15/19 2:23 PM) Body Mass Index [18.5-24.99] 32.16 *>HHI* (10/15/19 2:23 PM) Blood Pressure [90-138/55-84 mm Hg] 124/ 78mm Hg (10/15/19 2:23 PM) Blood pressure sites Arm, left (10/15/19 2:23 PM) Weight Obtained Via Standing scale (10/15/19 2:23 PM) Social History Social History Type Response Smoking Status Former smoker, quit more than 30 days ago entered on: 12/29/18 Sex
--- OUTSIDE RECORDS SUMMARY | 2024-06-17 06:04 | XMS_ITS | Continuity of Care Document ---
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 Attending Physician: Demetri Ricketts MD Admitting Physician: Demetri Ricketts MD Referring Physician: Geoff Glover DO Allergies, [...] 3Admin Note: [facility] 4Result Comment: Lot [id number] (E) [id number] 5Admin Note: dr hall 6Result Comment: [employer] [id number] L287x 27feblo Medications amlodipine 10 mg oral tablet 10 mg, 1, tablet, By Mouth, Daily, pharmacy wants 90 days, # 90 tablet, Refills 1, Tot. Refills 1, Maintenance, 11/01/16 21:05:57, Route to Pharmacy Electronically, [id number], [facility]/pharmacy #[id number] Start Date: 07/10/16 Stop Date: 01/06/17 Status: Ordered aspirin 81 mg oral enteric coated tablet 1 tablet = 81 mg, By Mouth, Daily, # 30 tablet, 3 Refills, Maintenance Start Date: 05/27/09 Status: Ordered BD UF RADHA PEN NEEDLE [id number] See Instructions, # 120 Unknown, Refills 5 Tot. Refills 5, USE DAILY, [facility]/pharmacy #[id number] Start Date: 07/10/19 Status: Ordered buPROPion 150 mg/24 hours (XL) oral tablet, extended release 1 tablet = 150 mg, By Mouth, Every 24 hours, # 90 tablet, 1 Refills, Maintenance, 03/02/20 12:21:00EDT, ER Tablet, [facility]/pharmacy #[id number], 1 tablet By Mouth Every 24 hours,x90 days, 170.5, cm, 01/31/20 10:18:00 EDT, Height, 92, kg, 09/14/19 14:18:00 EST,... Start Date: 03/02/20 Stop Date: 08/29/20 Status: Ordered chlorthalidone 25 mg oral tablet [...] BLOOD SUGARS 3 TIMES A DAY, [facility]/pharmacy #[id number] Start Date: 03/10/19 Status: Ordered Freestyle [...] Maintenance, 07/07/18 11:08:24 EDT,Route to Pharmacy Electronically, [id number], [facility]/pharmacy #[id number] Start Date: 07/07/18 Status: Ordered metFORMIN 500 mg oral tablet, extended release 2 tablet = 1,000 mg, By Mouth, Daily, # 180 tablet, 1 Refills, Maintenance, 11/09/19 16:29:00 EST, [facility]/pharmacy #[id number], D/C RX on file 1000mg not [...] 1 CAPSULE BY MOUTH EVERY DAY, [facility]/pharmacy #[id number] Start Date: 04/06/19 Status: Ordered tamsulosin 0.4 mg oral capsule See Instructions, TAKE 1 CAPSULE BY MOUTH EVERY DAY, # 90 capsule, Refills 1, Tot. Refills 1, Soft Stop, 02/09/20 14:57:00 EDT, Instructions Replace Required Details, Route to Pharmacy Electronically, [facility]/pharmacy #[id number], 170.5, cm, 01/31/20 10:18:00 E... Start [...] mL, 5 Refills, Maintenance, 03/29/20 11:10:00 EDT, [facility]/pharmacy #[id number], 170, cm, 03/29/20 10:57:00 EDT, Height, [...] 3 Refills, Maintenance, 09/18/19 15:11:00 EST, Solution, [facility]/pharmacy #[id number], 170.5, cm, 09/18/19 14:43:00 EST, Height, [...]
--- OUTSIDE RECORDS SUMMARY | 2024-06-17 06:04 | XMS_ITS | Continuity of Care Document ---
Author Organization [facility] Sigifredo ayush Address [address] [place] [address]- Care Team Providers Care Clicker Operator Name Role Phone Maritza CABEZAS, Bailey Goss Primary Care Physic pierre [facility] Date[facility]): 11/28/21 - 12/28/21 [facility] [address] [place] [id number] Allergies, Adverse Reactions, Alerts No Known Allergies Immunizations Given and Recorded Vaccine Date Status Refusal Reason SARS-CoV-2 mRNA (iicsfak-vbkq-uiraj) vax 10/18/21 Given influenza virus vaccine, inactivated [...] 23-valent vaccine 7 05/28/09 Given 1Result Comment: [facility]: [id number] 2Admin Note: By Dr Granado 3Admin Note: Dr Granado 4Admin Note: [facility] 5Result Comment: Lot [id number] (E) [id number] 6Admin Note: dr hall 7Result Comment: [employer] [id number] L287x 27feblo Medications abacavir 300 mg oral [...] Stop 11/05/22 10:20:00EST, 11/10/21 10:20:00 EST, Tablet, [facility]/pharmacy #[id number], 175, cm, 10/27/21 13:06:00 [...] 0 Refills, Maintenance, 11/10/21 15:20:00 EST, Tablet, [facility]/pharmacy #[id number], Partial fill upon patient request if the prescription is for a schedule II opioid drug., 175, cm, 10/27/21 13:06:00 EST, Height... Start Date: 11/10/21 Status: Ordered metoprolol 50 mg oral tablet 50 mg, 1, tablet, By Mouth, 2 times a day, # 180 tablet, Refills 0, Tot. Refills 0, Maintenance, 12/20/21 15:57:00 EDT, Route to Pharmacy Electronically, [facility]/pharmacy #[id number], Partial fill upon patientrequest [...] 3 each, 5 Refills,Maintenance, 10/19/21 12:47:00 EST, [facility] P... Start Date: 10/19/21 Stop Date: 04/17/22 Status: Ordered Pen [place], 31 G x 5 mm BD Ultra [...] Replace Required Details, Route to Pharmacy Electronically, [facility]/pharmacy #[id number], 175, cm, 12/06/21 8:15:00 [...] 5 Refills, Maintenance, 10/26/21 16:50:00 EST, Solution, [facility]/pharmacy #[id number], Partial fill upon patient request if the prescription is for a schedule II opioid Start Date: 10/26/21 Status: Ordered Problem List [...]
--- OUTSIDE RECORDS SUMMARY | 2024-06-17 06:04 | XMS_ITS | Continuity of Care Document ---
Author Organization [facility] Address [address] [place] [address]- Care Team Providers Care Evaporator Supervisor Name Role Phone Maritza CABEZAS, Bailey Goss Primary Care Physic pierre [facility] Date[facility]s): 03/09/24 - 04/08/24 [facility] [address] [place] [address]- Allergies, Adverse Reactions, Alerts No Known Allergies Immunizations Given and Recorded Vaccine Date Status Refusal Reason zoster vaccine, inactivated 04/19/23 Recorded tetanus/diphtheria/pertussis, acel(Tdap) 03/28/23 Given pneumococcal 23-valent vaccine 03/28/23 Given pneumococcal 23-valent vaccine 1 05/28/09 Given [id number] 12y+ bivalent booster vax 08/28/22 Recorded influenza [...] inactivated 6 05/28/09 Gi isidra SARS-CoV-2 mRNA (ttbukea-sfmy-rqpyx) vax 10/18/21 Given SARS-CoV-2 (COVID-19) mRNA BNT-162b2 vac 01/01/21 Recorded SARS-CoV-2 (COVID-19) mRNA BNT-162b2 vac 12/10/20 Recorded Influenza Virus Vaccine (oldterm) 06/13/19 Recorde d pneumococcal 13-valent vaccine 10/03/16 Given Fluvirin (oldterm) 05/23/11 Given Tet/diphth/pertussis, acel (oldterm) 05/23/11 Give n FluLaval (oldterm) 7 06/09/10 Given 1Result Comment: [employer] [id number] L287x 27feblo 2Result Comment: [facility]: 54317-086-93 3Admin Note: By Dr Granado 4Admin Note: Dr Granado 5Admin Note: [facility] 6Result Comment: Lot [id number]) [id number] 7Admin Note: dr hall Medications Alcohol Pads [...] Refills, Maintenance, 02/10/24 16:21:00 EDT, XL Tablet, [facility]/pharmacy #0693, Partial [...] EST, Route to Pharmacy Electronically, [facility]/pharmacy #[id number], Partial fill upon patient request if the prescription is for a... Start Date: 10/03/23 Status: Ordered finasteride 5 mg oral tablet 1 tablet = 5 mg, By Mouth, Daily, blister pack, # 90 tablet, 0 Refills, Maintenance, 10/03/23 1:27:00 EST, Tablet, [facility]/pharmacy #0693, [...] Refills, Maintenance, 03/03/24 12:25:00 EDT, REC Powder, [facility]/pharmacy #0693, Partial fill [...] 10/03/23 1:27:00 EST, Route to Pharmacy Electronically, [facility]/pharmacy #0607, Partial fill upon patient request if the prescription is for a schedule I... Start Date: 10/03/23 Status: Ordered metoprolol succinate 200 mg oral capsule, extended release 1 capsule = 200 mg, By Mouth, Daily, blister pack, # 90 capsule, 0 Refills, Maintenance, 10/03/23 1:28:00 EST, ER Capsule, [facility]/pharmacy #0693, Partial fill upon patient request if the prescription isfor a schedule II opioid drug., 172, cm, 10/02/23 7... Start Date: 10/03/23 Status: Ordered Myrbetriq 50 mg oral tablet, extended release 1 tablet = 50 mg, By Mouth, Daily, blister pack do not crush or chew, # 90 tablet, 0 Refills, Maintenance, 10/03/23 1:28:00 EST, ER Tablet, [facility]/pharmacy #0693, Partial fill upon patient request if the prescription is for a schedule II opioid drug., 17... Start Date: 10/03/23 Status: Ordered ondansetron 4 mg oral tablet, disintegrating 1 tablet = 4 mg, By Mouth, Every 8 hours, PRN Nausea & Vomiting, # 9 tablet, 0 Refills, Maintenance, 01/30/24 22:44:00 EDT, Tablet, [facility]/pharmacy #0693, Partial [...] Weight Start Date: 02/10/24 Status: Ordered Pen [place], 31 G x 5 mm BD [...] Maintenance, 10/03/23 1:28:00 EST, Tablet, [facility]/pharmacy #[id number], Partial fill upon patient request if the prescription is for a schedule II opioid drug., 172, cm, 10/02/23 7:02:00... Start Date: 10/03/23 Status: Ordered tamsulosin 0.4 mg oral capsule 0.4 mg, 1, capsule, By Mouth, Daily, blister pack, # 90 capsule, Refills 0, Tot. Refills 0, Maintenance, 10/03/23 1:29:00 EST, Route to Pharmacy Electronically, [facility] [...] Care Team Personnel Name: Nuzhat Sainz Position: [facility] Outreach Member Role: Lifetime Consulting Physician Name: Janel Mead RN Position: [facility] RN Member Role: Primary Care Nurse Name: Maritza CABEZAS, Bailey Goss Position: [facility] Physician - Primary Care Member Role: PCP Address: Address: [address] [place] [address]- [place] Name: Derik Gaines MD Position: [facility] Renal MD Member Role: Lifetime Consulting Physician Address: Address: [address] [facility] [address] [facility] [place] [address]- [place] Name: Kiana Castelan [place] Position: [facility] AMB [place] Member Role: Lifetime Consulting Physician Name: Bayron Brandt DO Position: [facility] Renal MD Member Role: Lifetime Consulting Physician Address: Address: [address] [facility] [address] [facility] [place] [address]- [place] Name: Eric Garcia RN Position: [facility] RN Member Role: Primary Care Nurse Name: Jaclyn Schulte RN Position: [facility] RN Member Role: Primary Care Nurse Name: Kavon Liu MD Position: Reference Physician Member Role: Lifetime Consulting Physician Address: Address: [address] [place] [address] [address] [facility] [place] [address]- Care Team Related Persons Name: BO PERALES Address: home [address] [place] [address] Name: DANA BALTAZAR Address: home [address] [place] [address] Name: NALDO AVALOS Address: home [address] [place] [address] Name: NALDO BARNARD Address: home [address] [place] [address]
--- OUTSIDE RECORDS SUMMARY | 2024-06-17 06:04 | XMS_ITS | Continuity of Care Document ---
Author Organization [facility] ter Address [address] [place] [address]- Care Team Providers Care Case Management Rn Name Role Phone Maritza CABEZAS, Bailey Goss Primary Care Physic pierre [facility]): [facility] - 06/17/[address] [address]- Encounter Diagnosis Hiccups(Final) - 06/17/21 Epigastric pain(Final) - 06/17/21 Discharge Disposition: A-D/C Home Attending Physician: Wili Grover MD Admitting Physician: Wili Grover MD Referring Physician: Not on Staff, Referring [...] Note: By Dr Granado 2Admin Note: Dr [place] 3Admin Note: [facility] 4Result Comment: Lot [id number]) [id number] 5Admin Note: dr hall 6Result Comment: [employer] [id number] L287x 27feblo Medications amlodipine 10 mg oral tablet 10 mg, 1, tablet, By Mouth, Daily, pharmacy wants 90 days, # 90 tablet, Refills 1, Tot. Refills 1, Maintenance, 07/10/16 21:05:57, Route to Pharmacy Electronically, [id number], [facility]/pharmacy #[id number] Start Date: 07/10/16 Stop Date: 01/06/17 Status: Ordered aspirin 81 mg oral enteric coated tablet 1 tablet = 81 mg, By Mouth, Daily, # 30 tablet, 3 Refills, Maintenance Start Date: 05/27/09 Status: Ordered BD UF RADHA PEN NEEDLE [id number] See Instructions, # 120 Unknown, Refills 5 [...] CHECK BLOOD SUGARS 3 TIMES A DAY, [facility] Start Date: 03/10/19 Status: Ordered Freestyle [...] Maintenance, 07/07/18 11:08:24 EDT,Route to Pharmacy Electronically, [id number], [facility]/pharmacy #0693 Start Date: 07/07/18 Status: Ordered metoclopramide 10 mg oral tablet 1 tablet = 10 mg, By Mouth, 4 times a day, # 28 tablet, 0 Refills, Maintenance, 06/17/21 16:38:00 EDT, Tablet, [facility]/pharmacy #0662, Partial fill upon patient request if the [...] Replace Required Details, Route to Pharmacy Electronically, [facility]/pharmacy #0693, 170, cm, 02/23/21 11:12:00 EDT... [...] tablet, 0 Refills, Maintenance, 02/02/21 18:11:00 EDT, [facility]/pharmacy#0693, 1 tablet By Mouth Daily, 170, cm, 01/11/21 9:05:00 EDT, Height, 92, kg, 09/14/19 14:18:00 EST, Dry Weight Start Date: 02/02/21 Status: Ordered Trulicity Pen 3 mg/0.5 mL subcutaneous solution 0.5 mL = 3 mg, Subcutaneous Injection, Every week, Take 3mg once weekly. E11.65., # 2 mL, 5 Refills, Maintenance, 04/05/21 12:10:00 EDT, Rashid, [facility], Partial fill upon patient request [...] Exam Date Time Procedure Performing Provider Status 06/17/21 1:05 PM Chest 2 Views Frontal and Lat Eliza Mckeon; Bee (Verified) Notes: (Chest 2 Views Frontal and Lat) Reason For Exam: epigastric discomfort;Other: RESULT: Chest 2 Views Frontal and Lat PA and lateral chest dated June 17, 2021 1303 hours. Comparison films are from October 31, 2018. HISTORY: Hiccups. Epigastric pain. FINDINGS: The cardiac silhouette is within normal limits for size. Hilar and mediastinal structures are unremarkable. No airspace infiltrate or pleural effusion is noted. Today's study is limited as the lateral costophrenic sulci are not included on the PA view. Minimal degenerative changes are noted in the spine and shoulders. IMPRESSION: No evidence of acute pulmonary disease. Examination 70811. Thank you for allowing me to participate in the care of this patient. WSN: [id number] Ordering Physician: Tristan Alvarez Dictated By: Hayder Larsen MD Dictated Date/Time: 06/17/21 1:11 pm Reviewed By: Hayder Larsen MD Signed By: Hayder Larsen MD Signed Date/Time: 06/17/21 1:11 pm Transcribed By: ALEXUS Transcribed Date/Time: 06/17/21 1:11 pm Vital Signs Most recent to oldest [Reference Range]: 1 2 3 Oxygen Saturation [94-100 %] 97 % (06/17/21 3:53 PM) 98 % (06/17/21 12:04 PM) 100 % (06/17/21 9:26 AM) Pulse Rate [55-90 bpm] 78 bpm (06/17/21 3:53 PM) 89 bpm (06/17/21 12:04 PM) 80 bpm (06/17/21 9:26 AM) Blood Pressure [90-138/55-84 mm Hg] 120/78mm Hg (06/17/21 3:53 PM) 134/78mm Hg (06/17/21 12:04 PM) 127/71mm Hg (06/17/21 9:26 AM) Respiratory Rate [16-30 br/min] 18 br/min (06/17/21 3:53 PM) 20 br/min (06/17/21 12:04 PM) 20 br/min (06/17/21 9:26 AM) Temperature [96.8-100.4 DegF] 97.9 DegF (06/17/21 12:04 PM) 97.7 DegF (06/17/21 9:26 AM) Mode of Delivery (Oxygen) Room air (06/17/21 3:53 PM) Room air (06/17/21 12:04 PM) Room air (06/17/21 9:26 AM) Blood pressure sites Arm, right (06/17/21 3:53 PM) Arm, right (06/17/21 12:04 PM) Arm, left (06/17/21 9:26 AM) Temperature Route Oral (06/17/21 12:04 PM) Oral (06/17/21 9:26 AM) Social History Social History Type Response Smoking Status Former smoker, quit more than 30 days ago entered on: 12/29/18 Sex
--- OUTSIDE RECORDS SUMMARY | 2024-06-17 06:05 | XMS_ITS | Continuity of Care Document ---
Author Organization [facility] Address [address] [place] [address]- Care Team Providers Care Swine Nutritionist Name Role Phone Geoff Glover DO Primary Care Physician [facility] - 06/17/20 [facility] [address] [place] [address]- [facility] Attending Physician: Marie Ferrer Admitting Physician: AdmMarie [...] 3Admin Note: [facility] 4Result Comment: Lot [id number] (E) [id number] 5Admin Note: dr hall 6Result Comment: [employer] [id number] L287x 27feblo Medications amlodipine 10 mg oral tablet 10 mg, 1, tablet, By Mouth, Daily, pharmacy wants 90 days, # 90 tablet, Refills 1, Tot. Refills 1, Maintenance, 07/10/16 21:05:57, Route to Pharmacy Electronically, [id number], [facility]/pharmacy #0693 Start Date: 07/10/16 Stop Date: 01/06/17 Status: Ordered aspirin 81 mg oral enteric coated tablet 1 tablet = 81 mg, By Mouth, Daily, # 30 tablet, 3 Refills, Maintenance Start Date: 05/27/09 Status: Ordered BD UF RADHA PEN NEEDLE [id number] See Instructions, # 120 Unknown, Refills 5 Tot. Refills 5, USE DAILY, [facility]/pharmacy #0693 Start Date: 07/10/19 Status: Ordered buPROPion 150 mg/24 hours (XL) oral tablet, extended release 1 tablet, By Mouth, Every 24 hours, # 90 tablet, 1 Refills, Maintenance, 06/13/20 8:06:00 EDT, [facility] STORE 74863, 90, TAKE 1 TABLET BY MOUTH EVERY [...] to check blood sugar 3 times daily. E11., 09/18/19 15:01:00 EST, Compound, 170.5, cm, 09/18/19 14:43:00 EST, Height, 92, kg, 09/14/19 14:18:00 EST, Dry Weight Start Date: 09/18/19 Stop Date: 03/16/20 Status: Ordered FREESTYLE LITE TEST STRIP See Instructions, # 200 Unknown, Refills 5 Tot. Refills 5, CHECK BLOOD SUGARS 3 TIMES A DAY, [facility]/pharmacy #0693 Start Date: 03/10/19 Status: Ordered [...] Maintenance, 07/07/18 11:08:24 EDT,Route to Pharmacy Electronically, [id number], [facility]/pharmacy #0693 Start Date: 07/07/18 Status: Ordered metFORMIN 500 mg oral tablet, extended release 2 tablet = 1,000 mg, By Mouth, Daily, # 180 tablet, 1 Refills, Maintenance, 11/09/19 16:29:00 EST, [facility]/pharmacy #0693, D/C RX on file 1000mg [...] 1 CAPSULE BY MOUTH EVERY DAY, [facility]/pharmacy #0693 Start Date: 04/06/19 Status: Ordered tamsulosin 0.4 mg oral capsule See Instructions, TAKE 1 CAPSULE BY MOUTH EVERY DAY, # 90 capsule, Refills 1, Tot. Refills 1, Soft Stop, 02/09/20 14:57:00 EDT, Instructions Replace Required Details, Route to Pharmacy Electronically, [facility]/pharmacy #0693, 170.5, cm, 01/31/20 10:18:00 E... Start [...] 5 Refills, Maintenance, 03/29/20 11:10:00 EDT, [facility]/pharmacy #0693, 170, cm, 03/29/20 10:57:00 EDT, [...] Refills, Maintenance, 09/18/19 15:11:00 EST, Solution, [facility]/pharmacy #0693, 170.5, cm, 09/18/19 14:43:00 EST, Height, [...]
--- OUTSIDE RECORDS SUMMARY | 2024-06-17 06:05 | XMS_ITS | Continuity of Care Document ---
Author Organization [facility] Address [address] [place] [address]- Care Team Providers Care Shredder Tender Name Role Phone Maritza CABEZAS, Bailey Goss Primary Care Physic pierre [facility]): [facility] - 07/19/22 [facility] [address] [place], [place] [address] Attending Physician: AdmMarie pizano Admitting Physician: AdmtrMarie Referring Physician: Admtr, Ar8 Allergies, Adverse Reactions, Alerts No Known Allergies Immunizations Given and Recorded Vaccine Date Status Refusal Reason SARS-CoV-2 mRNA (lpvdtbt-izet-kvrqt) vax 10/18/21 Given influenza virus vaccine, inactivated [...] vaccine 7 05/28/09 Given 1Result Comment: [facility]: 39732-423-71 2Admin Note: By Dr Granado 3Admin Note: Dr Granado 4Admin Note: [facility] 5Result Comment: Lot [id number] E) [id number] 6Admin Note: dr hall 7Result Comment: [employer] [id number] L287x 27feblo Medications aspirin 81 mg oral delayed release tablet = 81 mg, By Mouth, Daily, # 30 tablet, 0 Refills, Maintenance, 11/10/21 15:20:00 EST, EC Tablet, [facility]/pharmacy #0693, Partial fill upon patient [...] tablet, 1 Refills, Maintenance, 04/20/22 13:02:00 EDT, [facility]/pharmacy #0693, 1 tablet By [...] # 60 tablet, 3 Refills, [facility], 175, cm, 02/06/22 16:03:00 EDT, Height, 78.5, [...] 12/20/21 15:57:00 EDT, Route to Pharmacy Electronically, [facility]/pharmacy #0693, Partial fill upon patientrequest if the prescription is for a schedule II op... Start Date: 12/20/21 Stop Date: 03/20/22 Status: Ordered NovoLOG FlexPen 100 units/mL subcutaneous solution See Instructions, Subcutaneous Injection, 3 times daily before meals; give >150 : 10 units 3 times before meals., # 3 each, 8 Refills, Maintenance, 04/17/22 12:47:00 EDT, [facility]/pharmacy #0693, Partial fill upon patient request if the prescription is for... Start Date: 04/17/22 Stop Date: 01/12/23 Status: Ordered Pen [place], 31 G x 5 mm BD Ultra [...] Replace Required Details, Route to Pharmacy Electronically, [facility]/pharmacy #0693, 175, cm, 02/06/22 16:03:00 EDT... Start Date: 04/20/22 Status: Ordered Testopel = 300 mg, Subcutaneous Infusion, Every 3 months, 0 Refills, Maintenance, 03/26/15 23:08:01 Start Date: 7/18/15 Status: Ordered Tresiba FlexTouch 200 units/mL subcutaneous [...] Care Team Personnel Name: Nuzhat Sainz Position: [facility] Outreach Member Role: Lifetime Consulting Physician Name: Maritza CABEZAS, Bailey Goss Position: [facility] Primary Care Physician Member Role: PCP Address: Address: [address] [place] [id number] Name: Derik Gaines MD Position: [facility] Renal MD Member Role: Lifetime Consulting Physician Address: Address: [address] [facility] [place] [address]- [place] Name: Jazmin Florez RN Position: [facility] RN Supv Member Role: Primary Care Nurse Name: Kiana Castelan Position: [facility] Outreach Member Role: Lifetime Consulting Physician Name: Bayron Brandt DO Position: [facility] Renal MD Member Role: Lifetime Consulting Physician Address: Address: [address] [facility] [place] [address]- Name: Amie Caldwell PharmD Position: [facility] Associate Professional Member Role: Lifetime Consulting Provider Address: Address: [address] [place] [address]- Name: Eric Garcia RN Position: [facility] RN Member Role: Primary Care Nurse Name: Jaclyn Schulte RN Position: [facility] RN Member Role: Primary Care Nurse Name: Kavon Liu MD Position: [facility] Physician (General Medicine) Member Role: Lifetime Consulting Physician Address: Address: [address] [place] [address], [address] [place] [address]- Care Team Related Persons Name: DANA PERALES Address: home [address] [place] [address] Name: BO PERALES Address: home [address] [place] [place] [address] Name: DANA BALTAZAR Address: home [address] [place] [place] [address] Name: NALDO AVALOS Address: home [address] [place] [address] Name: NALDO BARNARD Address: home [address] [place] [address]
--- OUTSIDE RECORDS SUMMARY | 2024-06-17 06:05 | XMS_ITS | Continuity of Care Document ---
Author Organization [facility] Address [address] [place] [address]- Care Team Providers Care Sugar Cane Planter Machine Operator Name Role Phone Maritza CABEZAS, Bailey Goss Primary Care Physic pierre [facility]): 10/27[facility]21 - 11/26/21 [facility] [address] [place] [address]- Allergies, Adverse Reactions, Alerts No Known Allergies Immunizations Given and Recorded Vaccine Date Status Refusal Reason SARS-CoV-2 mRNA (zklejqn-jxni-eekpx) vax 10/18/21 Given influenza virus vaccine, inactivated [...] vaccine 7 05/28/09 Given 1Result Comment: [facility]: 69388-791-59 2Admin Note: By Dr Granado 3Admin Note: Dr Granado 4Admin Note: [facility] 5Result Comment: Lot [id number] E) [id number] 6Admin Note: dr hall 7Result Comment: [employer] [id number] L287x 27feblo Medications abacavir 300 mg oral [...] 0 Refills, Maintenance, 11/10/21 15:20:00 EST, Tablet, [facility]/pharmacy #0693, [...] 11/10/21 15:20:00 EST, [facility], [facility] 3 each, 5 Refills,Maintenance, 10/19/21 12:47:00 EST, [facility]... Start Date: 10/19/21 Stop Date: 04/17/22 Status: Ordered Pen [place], 31 G x 5 mm BD Ultra [...] [facility]/pharmacy #0693, 175, cm, 10/27/21 13:06:00 [...]
--- OUTSIDE RECORDS SUMMARY | 2024-06-17 06:05 | XMS_ITS | Continuity of Care Document ---
Author Organization [facility] Sigifredo ayush Address [address] [place] [address]- Care Team Providers Care Evp And Chief Operating Officer Name Role Phone Maritza CABEZAS, Bailey Goss Primary Care Physic pierre [facility]): 10[facility]20[facility]21 - 10/27/21 [facility] [address] [place] [address] Attending Physician: Javier Dodson MD Referring Physician: Ron CABEZAS, Jorge Campo Allergies, Adverse Reactions, Alerts No Known Allergies Immunizations Given and Recorded Vaccine Date Status Refusal Reason SARS-CoV-2 mRNA (eocwbhl-wsxa-dwmiy) vax 10/18/21 Given influenza virus vaccine, inactivated 1 07/10/21 Gi isidra influenza virus vaccine, inactivated 06/09/18 Darryn rded influenza virus vaccine, inactivated 2 06/04/17 Gi isidra influenza virus vaccine, inactivated 3 06/23/16 Gi isidra influenza virus vaccine, inactivated 05/25/14 Give n influenza virus vaccine, inactivated 4 06/10/13 Gi isirda influenza virus vaccine, inactivated 5 05/28/09 Gi isidra SARS-CoV-2 (COVID-19) mRNA BNT-162b2 vac 01/01/21 Recorded SARS-CoV-2 (COVID-19) mRNA BNT-162b2 vac 12/10/20 Recorded Influenza Virus Vaccine (oldterm) 06/13/19 Recorde d pneumococcal 13-valent vaccine 10/03/16 Given Fluvirin (oldterm) 05/23/11 Given Tet/diphth/pertussis, acel (oldterm) 05/23/11 Give n FluLaval (oldterm) 6 06/09/10 Given pneumococcal 23-valent vaccine 7 05/28/09 Given 1Result Comment: [facility]: 21614-532-89 2Admin Note: By Dr Granado 3Admin Note: Dr Granado 4Admin Note: [facility] 5Result Comment: Lot [id number] E) [id number] 6Admin Note: dr hall 7Result Comment: [employer] [id number] L287x 27feblo Medications abacavir 300 mg oral tablet 2 tablet = 600 mg, By Mouth, Daily, # 60 tablet, 0 Refills, Maintenance, 10/19/21 12:09:00 EST, Tablet, [facility] 3, Partial fill upon patient request if [...] Refills, Maintenance, 10/19/21 12:07:00 EST, EC Tablet, [facility] 3, Partial fill upon patient request if [...] tablet, 1 Refills, Maintenance, 04/13/21 15:06:00 EDT, [facility]/pharmacy #0693, 90, 1 tablet By Mouth Every 24 hours, 170, cm, 03/20/21 9:07:00 EDT, Height, 92, kg, 09/14/19 14:18:00 EST, Dry Weight Start Date: 04/13/21 Status: Ordered Crestor 40 mg oral tablet 1 tablet = 40 mg, By Mouth, Daily, # 90 tablet, 3 Refills, Maintenance, 08/30/20 8:19:00 EST, Tablet, [facility]/pharmacy #0693, 170, cm, 03/29/20 10:57:00 EDT, Height, 92, kg, 09/14/19 14:18:00 EST, Dry Weight Start Date: 08/30/20 Stop Date: 08/25/21 Status: Ordered dolutegravir 50 mg oral tablet 1 tablet = 50 mg, By Mouth, Daily, # 30 tablet, 0 Refills, Maintenance, 10/19/21 12:09:00 EST, Tablet, [facility], Partial fill upon patient request [...] 0 Refills, Maintenance, 10/19/21 12:13:00 EST, Tablet, [facility], Partial fill upon patient request if the prescription is for a schedule II opioid drug., 175, cm, 10/19/21 8:07:00 EST, H... Start Date: 10/19/21 Status: Ordered metoprolol 50 mg oral tablet 50 mg, 1, tablet, By Mouth, 2 times a day, # 60 tablet, Refills 0, Tot. Refills 0, Maintenance, 10/19/21 12:08:00 EST, Route to Pharmacy Electronically, [facility], Partial fill upon patient request if the prescription is for a schedule... Start Date: 10/19/21 Status: Ordered NovoLOG FlexPen 100 units/mL subcutaneous solution See Instructions, Subcutaneous Injection, 3 times daily before meals; 100-150 10 units; 151-200 12 units; 201-250 14 units; 251-300 16 units; 301-350 18 units; Over 350 20 units, # 3 each, 5 Refills,Maintenance, 10/19/21 12:47:00 EST, [facility] P... Start Date: 10/19/21 Stop Date: 04/17/22 Status: Ordered Pen [place], 31 G x 5 mm BD Ultra [...] 1 CAPSULE BY MOUTH EVERY DAY, [facility]/pharmacy #0693 Start Date: 04/06/19 Status: Ordered Testopel = 300 mg, Subcutaneous Infusion, Every 3 months, 0 Refills, Maintenance, 03/26/15 23:08:01 Start Date: 03/26/15 Status: Ordered Tresiba FlexTouch 200 units/mL subcutaneous solution See Instructions, Take 35 units daily at lunch. E11.65, # 18 mL, 10 Refills, Maintenance, 03/31/21 10:22:00 EDT, [facility]/pharmacy #0693, 170, cm, 03/20/21 9:07:00 EDT, Height, 92, kg, 09/14/19 14:18:00 EST, Dry Weight Start Date: 03/31/21 Status: Ordered Trulicity Pen 3 mg/0.5 mL subcutaneous solution 0.5 mL = 3 mg, Subcutaneous Injection, Every week, Take 3mg once weekly. E11.65., # 2 mL, 5 Refills, Maintenance, 10/26/21 16:50:00 EST, Solution, [facility]/pharmacy #0693, Partial fill upon patient request if the prescription is for a schedule II opioid drAlysha. Start Date: 10/26/21 Status: Ordered warfarin 1 mg oral tablet See Instructions, Take 4 tablets (4mg tonight), then as directed based on daily INR, # 120 tablet, 0 Refills, Maintenance, 10/19/21 12:14:00 EST, Tablet, [facility], Partial fill upon patient request [...] oldest [Reference Range]: 1 Height 175 cm (10/20/21 11:15 AM) Weight 86.2 kg (10/20/21 11:15 AM) Oxygen Saturation [94-100 %] 98 % (10/20/21 11:15 AM) Pulse Rate [55-90 bpm] 72 bpm (10/20/21 11:15 AM) Body Mass Index [18.5-24.99] 28.15 *H* (10/20/21 11:15 AM) Blood Pressure [90-138/55-84 mm Hg] 108/ 58mm Hg (10/20/21 11:15 AM) Respiratory Rate [16-30 br/min] 18 br/mi n (10/20/21 11:15 AM) Mode of Delivery (Oxygen) Room air (10/20/21 11:15 AM) Blood pressure sites Arm, left (10/20/21 11:15 AM) Weight Obtained Via Patient/family state d (10/20/21 11:15 AM) Social History Social History Type Response Smoking Status Former smoker, quit more than 30 days ago entered on: 12/29/18 Sex
--- OUTSIDE RECORDS SUMMARY | 2024-06-17 06:05 | XMS_ITS | Continuity of Care Document ---
Author Organization [facility] Address [address] [place] [address]- Care Team Providers Care Lien Searcher Name Role Phone Maritza CABEZAS, Bailey Goss Primary Care Physic pierre [facility] 07[facility] - 07/17/21 [facility] [address] [place] [address]- [place] Encounter Diagnosis Memory loss, short term(Discharge Diagnosis) - 07/10/21 Depression, major(Discharge Diagnosis) - 07/10/21 Attending Physician: Bailey Salas MD Allergies, Adverse [...] 05/28/09 Given 1Result Comment: [facility]: 00113-609-09 2Admin Note: By Dr Granado 3Admin Note: Dr Granado 4Admin Note: [facility] 5Result Comment: Lot [id number] ([id number]) [id number] 6Admin Note: dr hall 7Result Comment: [employer] [id number] L287x 27feblo Medications amlodipine 10 mg oral tablet 10 mg, 1, tablet, By Mouth, Daily, pharmacy wants 90 days, # 90 tablet, Refills 1, Tot. Refills 1, Maintenance, 07/10/16 21:05:57, Route to Pharmacy Electronically, [id number], [facility]/pharmacy #0693 Start Date: 07/10/16 Stop Date: 01/06/17 Status: Ordered aspirin 81 mg oral enteric coated tablet 1 tablet = 81 mg, By Mouth, Daily, # 30 tablet, 3 Refills, Maintenance Start Date: 05/27/09 Status: Ordered BD UF RADHA PEN NEEDLE [id number] See Instructions, # 120 Unknown, Refills 5 [...] Refills, Maintenance, 08/30/20 8:19:00 EST, Tablet, [facility]/pharmacy #0693, 170, cm, 03/29/20 10:57:00 EDT, Height, [...] SUGARS 3 TIMES A DAY, [facility]/pharmacy #0693 Start Date: 03/10/19 Status: Ordered Freestyle [...] Maintenance, 07/07/18 11:08:24 EDT,Route to Pharmacy Electronically, [id number], [facility]/pharmacy #0693 Start Date: 07/07/18 Status: Ordered metoclopramide 10 mg oral tablet 1 tablet = 10 mg, By Mouth, 4 times a day, # 28 tablet, 0 Refills, Maintenance, 06/17/21 16:38:00 EDT, Tablet, [facility]/pharmacy #0693, Partial [...] skin, # 30 Gm, 0 Refills, Acute 07/24/21 16:54:00 EST, 07/10/21 16:54:00 EDT, Ointment, [facility]/pharmacy #0693, Partial fill upon patient request if the prescription is for a schedule... Start Date: 07/10/21 Stop Date: 07/24/21 Status: Ordered nitroglycerin 0.4 mg sublingual tablet [...] CAPSULE BY MOUTH EVERY DAY, [facility]/pharmacy #0693 Start Date: 04/06/19 Status: Ordered Testopel [...] 5 Refills, Maintenance, 04/05/21 12:10:00 EDT, [facility], [facility]/pharmacy #5522, Partial fill upon patient request if the [...] Dates Health Status Cl inical Service Informant Memory loss, short term Discharge Diagnosis 07/10/21 Depression, major Discharge Diagnosis 07/10/21 Vital Signs Most recent to oldest [Reference Range]: 1 Height 170.00 cm (07/10/21 4:03 PM) Pulse Rate [55-90 bpm] 90 bpm (07/10/21 4:03 PM) Blood Pressure [90-138/55-84 mm Hg] 118/ 84mm Hg (07/10/21 4:03 PM) Blood pressure sites Arm, right (07/10/21 4:03 PM) Social History Social History Type Response Smoking Status Former smoker, quit more than 30 days ago entered on: 12/29/18 Sex
--- OUTSIDE RECORDS SUMMARY | 2024-06-17 06:05 | XMS_ITS | Continuity of Care Document ---
Author Organization [facility] Sigifredo ayush Address [address] [place] [address] [place] [address]- Care Team Providers Care Field Support Technician Name Role Phone Maritza CABEZAS, Bailey Goss Primary Care Physic pierre [facility] - 11/29/21 [facility] [address] [place] [id number] Allergies, Adverse Reactions, Alerts No Known Allergies Immunizations Given and Recorded Vaccine Date Status Refusal Reason SARS-CoV-2 mRNA (ksvprne-jplq-npwky) vax 10/18/21 Given influenza virus vaccine, inactivated [...] 23-valent vaccine 7 05/28/09 Given 1Result Comment: [facility]: [id number] 2Admin Note: By Dr Granado 3Admin Note: Dr Granado 4Admin Note: [facility]IC 5Result Comment: Lot [id number] (E) [id number] 6Admin Note: dr hall 7Result Comment: [employer] [id number] L287x 27feblo Medications abacavir 300 mg oral [...] Stop 11/05/22 10:20:00EST, 11/10/21 10:20:00 EST, Tablet, [facility]/pharmacy #[id number], 175, cm, 10/27/21 13:06:00 [...] 0 Refills, Maintenance, 11/10/21 15:20:00 EST, Tablet, [facility]/pharmacy #0693, Partial fill upon patient request if the prescription is for a schedule II opioid drug., 175, cm, 10/27/21 13:06:00 EST, Height... Start Date: 11/10/21 Status: Ordered metoprolol 50 mg oral tablet 50 mg, 1, tablet, By Mouth, 2 times a day, # 60 tablet, Refills 0, Tot. Refills 0, Maintenance, 11/10/21 15:20:00 EST, Route to Pharmacy Electronically, [facility]/pharmacy #[id number], Partial fill upon patient [...] 3 each, 5 Refills,Maintenance, 10/19/21 12:47:00 EST, [facility] P... Start Date: 10/19/21 Stop Date: 04/17/22 Status: Ordered Pen [place], 31 G x 5 mm BD Ultra [...] Replace Required Details, Route to Pharmacy Electronically, [facility]/pharmacy #[id number], 175, cm, 10/27/21 13:06:00 [...]
--- OUTSIDE RECORDS SUMMARY | 2024-06-17 06:05 | XMS_ITS | Continuity of Care Document ---
Author Organization [facility] Address [address] [place] [address]- Care Team Providers Care Order Expediter Name Role Phone Maritza CABEZAS, Bailey Goss Primary Care Physic pierre [facility]21 - 12/16/21 [facility] [address] [place] [address]- Allergies, Adverse Reactions, Alerts No Known Allergies Immunizations Given and Recorded Vaccine Date Status Refusal Reason SARS-CoV-2 mRNA (excbqkb-mwfc-asdjd) vax 10/18/21 Given influenza virus vaccine, inactivated [...] 1Result Comment: [facility]: [id number] 2Admin Note: By Dr Granado 3Admin Note: Dr Granado 4Admin Note: [facility] 5Result Comment: Lot [id number] 6Admin Note: dr hall 7Result Comment: [employer] [id number] L287x 27feblo Medications abacavir 300 mg oral [...] 0 Refills, Maintenance, 11/10/21 15:20:00 EST, Tablet, [facility]/pharmacy #[id number], Partial fill upon patient request if the prescription is for a schedule II opioid drug., 175, cm, 10/27/21 13:06:00 EST, Height... Start Date: 11/10/21 Status: Ordered metoprolol 50 mg oral tablet 50 mg, 1, tablet, By Mouth, 2 times a day, # 60 tablet, Refills 0, Tot. Refills 0, Maintenance, 11/10/21 15:20:00 EST, Route to Pharmacy Electronically, [facility]/pharmacy #0693, Partial fill upon [...] 3 each, 5 Refills,Maintenance, 10/19/21 12:47:00 EST, [facility] P... Start Date: 10/19/21 Stop Date: 04/17/22 Status: Ordered Pen [place], 31 G x 5 mm BD Ultra [...] Replace Required Details, Route to Pharmacy Electronically, [facility]/pharmacy #0693, 175, cm, 10/27/21 [...]
--- OUTSIDE RECORDS SUMMARY | 2024-06-17 06:05 | XMS_ITS | Continuity of Care Document ---
Author Organization [facility] Address [address] [place] [address]- Care Team Providers Care Cancer Researcher Name Role Phone Maritza CABEZAS, Bailey Goss Primary Care Physic pierre [facility]s): 01/23/24 - 03/06/24 [facility] [address] [place] [address]- Attending Physician: Bailey Salas MD Allergies, Adverse Reactions, Alerts No Known Allergies Immunizations Given and Recorded Vaccine Date Status Refusal Reason zoster vaccine, inactivated 04/19/23 Recorded tetanus/diphtheria/pertussis, acel(Tdap) 03/28/23 Given pneumococcal 23-valent vaccine 03/28/23 Given pneumococcal 23-valent vaccine 1 05/28/09 Given PTDC-[id number]-4hGEI 12y+ bivalent booster vax 08/28/22 Recorded influenza [...] inactivated 6 05/28/09 Gi isidra SARS-CoV-2 mRNA (yvpzaar-baxr-nmgnp) vax 10/18/21 Given SARS-CoV-2 (COVID-19) mRNA BNT-162b2 vac 01/01/21 Recorded SARS-CoV-2 (COVID-19) mRNA BNT-162b2 vac 12/10/20 Recorded Influenza Virus Vaccine (oldterm) 06/13/19 Recorde d pneumococcal 13-valent vaccine 10/03/16 Given Fluvirin (oldterm) 05/23/11 Given Tet/diphth/pertussis, acel (oldterm) 05/23/11 Give n FluLaval (oldterm) 7 06/09/10 Given 1Result Comment: [employer] [id number] L287x 27feblo 2Result Comment: [facility]: [id number] 3Admin Note: By [address] Granado 4Admin Note: Dr Granado 5Admin Note: [facility] 6Result Comment: Lot [id number] (E) [id number] 7Admin Note: dr hall Medications Alcohol Pads [...] Refills, Maintenance, 02/10/24 16:21:00 EDT, XL Tablet, [facility]/pharmacy #[id number], Partial [...] Refills, Maintenance, 03/03/24 12:25:00 EDT, REC Powder, [facility]/pharmacy #[id number], Partial fill upon patient request if the [...] 0 Refills, Maintenance, 01/30/24 22:44:00 EDT, Tablet, [facility]/pharmacy #0693, Partial fill upon patient request if the prescription is for a schedule II opioid drug., 175, cm, 0... Start Date: 01/30/24 Stop Date: 02/02/24 Status: Ordered ondansetron 8 mg oral tablet, disintegrating 1 tablet = 8 mg, By Mouth, 3 times a day, PRN Nausea & Vomiting, # 9 tablet, 0 Refills, Maintenance, 01/14/24 20:00:00 EDT, DIS Tablet, [facility]/pharmacy #0693, Partial fill [...] Weight Start Date: 02/10/24 Status: Ordered Pen [place], 31 G x 5 mm BD Ultra [...] Consulting Physician Name: Janel Mead RN Position: [facility] RN Member Role: Primary Care Nurse Name: Maritza CABEZAS, Bailey Goss Position: [facility] Physician - Primary Care Member Role: PCP Address: Address: [address] [place] [address]- [place] Name: Derik Gaines MD Position: [facility] Renal MD Member Role: Lifetime Consulting Physician Address: Address: [address] [facility] [address] [facility] [place] [address]- [place] Name: Kiana Castelan [place] Position: [facility] [place] Member Role: Lifetime Consulting Physician Name: Bayron Brandt DO Position: [facility] Renal MD Member Role: Lifetime Consulting Physician Address: Address: [address] [facility] [address] [facility] [place] [address]- [place] Name: Eric Garcia RN Position: [facility] RN Member Role: Primary Care Nurse Name: Jaclyn Schulte RN Position: [facility] RN Member Role: Primary Care Nurse Name: Kavon Liu MD Position: Reference Physician Member Role: Lifetime Consulting Physician Address: Address: [address] [place] [address] [address] [facility] [place] [address]- Care Team Related Persons Name: BO PERALES Address: home [address] [place] [id number] Name: DANA BALTAZAR Address: home [address] [place] [address] Name: NALDO AVALOS Address: home [address] [place] [address] Name: NALDO BARNARD Address: home [address] [place] [address]
--- OUTSIDE RECORDS SUMMARY | 2024-06-17 06:05 | XMS_ITS | Continuity of Care Document ---
Author Organization [facility] Sigifredo ayush Address [address] [place] [address] [place] [address]- Care Team Providers Care Fine Unhairer Name Role Phone Maritza CABEZAS, Bailey Goss Primary Care Physic pierre [facility]s): 11/09/21 - 12/09/21 [facility] [address] [place] [id number] Allergies, Adverse Reactions, Alerts No Known Allergies Immunizations Given and Recorded Vaccine Date Status Refusal Reason SARS-CoV-2 mRNA (okhkczz-muqv-blljh) vax 10/18/21 Given influenza virus vaccine, inactivated [...] Given 1Result Comment: [facility]: [id number] 2Admin Note: By Dr Granado 3Admin Note: Dr Granado 4Admin Note: [facility] 5Result Comment: Lot [id number] (E) [id number] 6Admin Note: dr hall 7Result Comment: [employer] [id number] L287x 27feblo Medications abacavir 300 mg oral [...] 11/05/22 10:20:00EST, 11/10/21 10:20:00 EST, Tablet, [facility]/pharmacy #[id number], 175, cm, 10/27/21 13:06:00 EST, [...] Refills, Maintenance, 11/10/21 15:20:00 EST, Tablet, [facility]/pharmacy #0693, Partial fill upon patient request if the prescription is for a schedule II opioid drug., 175, cm, 10/27/21 13:06:00 EST, Height... Start Date: 11/10/21 Status: Ordered metoprolol 50 mg oral tablet 50 mg, 1, tablet, By Mouth, 2 times a day, # 60 tablet, Refills 0, Tot. Refills 0, Maintenance, 11/10/21 15:20:00 EST, Route to Pharmacy Electronically, [facility]/pharmacy #0693, Partial fill upon patient [...] 3 each, 5 Refills,Maintenance, 10/19/21 12:47:00 EST, [facility] P... Start Date: 10/19/21 Stop Date: 04/17/22 Status: Ordered Pen [place], 31 G x 5 mm BD Ultra [...] Required Details, Route to Pharmacy Electronically, [facility]/pharmacy #[id number], 175, cm, 10/27/21 13:06:00 EST... [...]
--- OUTSIDE RECORDS SUMMARY | 2024-06-17 06:05 | XMS_ITS | Continuity of Care Document ---
Author Organization [facility] Address [address] [place] [address]- Care Team Providers Care Special Agent Group Insurance Name Role Phone Maritza CABEZAS, Bailey Goss Primary Care Physic pierre Encounter [facility] Date(s): 06/12/22 - 07/12/22 [facility] [address] [place], [place] [address] Attending Physician: AdmMarie pizano Admitting Physician: AdmtrMarie Referring Physician: Admtr, Ar8 Allergies, Adverse Reactions, Alerts No Known Allergies Immunizations Given and Recorded Vaccine Date Status Refusal Reason SARS-CoV-2 mRNA (snylola-eqkq-jyxwn) vax 10/18/21 Given influenza virus vaccine, inactivated [...] vaccine 7 05/28/09 Given 1Result Comment: [facility]: [id number] 2Admin Note: By Dr Granado 3Admin Note: Dr Granado 4Admin Note: [facility] 5Result Comment: Lot [id number] (E) [id number] 6Admin Note: dr hall 7Result Comment: [employer] [id number] L287x 27feblo Medications aspirin 81 mg oral delayed release tablet = 81 mg, By Mouth, Daily, # 30 tablet, 0 Refills, Maintenance, 11/10/21 15:20:00 EST, EC Tablet, [facility]/pharmacy #0693, Partial fill upon [...] tablet, 1 Refills, Maintenance, 04/20/22 13:02:00 EDT, [facility]/pharmacy #0693, 1 tablet By [...] tablet, 3 Refills, Hard Stop 11/05/22 10:20:00EST, 03/04/22 10:20:00 EST, Tablet, [facility]/pharmacy #0693, 175, cm, 10/27/21 13:06:00 EST, Height, 78.5, kg, 10/10/21 0:43:00 EST, Dry Weight Start Date: 11/10/21 Stop Date: 11/05/22 Status: Ordered Eliquis 5 mg oral tablet 1 tablet, By Mouth, 2 times a day, # 60 tablet, 3 Refills, [facility], 175, cm, 02/06/22 16:03:00 EDT, Height, 78.5, [...] Date: 07/16/22 Stop Date: 10/14/22 Status: Ordered Freestyle Lite Test Strips See Instructions, for 30 days, # 100 each, Refills 8, Tot. Refills 8, Hard Stop 07/16/22 14:09:00 EST, Use to check blood sugars 3 times daily. E11.65, 10/19/21 14:09:00 EST, Compound, 175, cm, 10/19/21 8:07:00 EST, Height, 78.5, kg, 10/10/21 0:43:00... Start Date: 10/19/21 Stop Date: 07/16/22 Status: [...] 12/20/21 15:57:00 EDT, Route to Pharmacy Electronically, [facility]/pharmacy #0693, Partial fill upon patientrequest if the prescription is for a schedule II op... Start Date: 12/20/21 Stop Date: 03/20/22 Status: Ordered NovoLOG FlexPen 100 units/mL subcutaneous solution See Instructions, Subcutaneous Injection, 3 times daily before meals; give >150 : 10 units 3 times before meals., # 3 each, 8 Refills, Maintenance, 04/17/22 12:47:00 EDT, [facility]/pharmacy #0693, Partial fill upon patient request if the prescription is for... Start Date: 04/17/22 Stop Date: 01/12/23 Status: Ordered Pen [place], 31 G x 5 mm BD Ultra [...] Replace Required Details, Route to Pharmacy Electronically, [facility]/pharmacy #0693, 175, cm, 02/06/22 16:03:00 EDT... Start Date: 04/20/22 Status: Ordered Testopel = 300 mg, Subcutaneous Infusion, Every 3 months, 0 Refills, Maintenance, 03/26/15 23:08:01 Start Date: 03/26/15 Status: Ordered Tresiba FlexTouch 200 units/mL subcutaneous solution See Instructions, Take 22 units daily at lunch. E11.65, # 9 mL, 10 Refills, Maintenance, 05/28/22 13:10:00 EDT, [facility]/pharmacy #0693, 175, cm, 02/06/22 16:03:00 EDT, Height, 78.5, kg, 10/10/21 0:43:00 EST, Dry Weight Start Date: 05/28/22 Status: Ordered Trulicity Pen 3 mg/0.5 mL subcutaneous solution 0.5 mL = 3 mg, Subcutaneous Injection, Every week, Take 3mg once weekly. E11.65., # 2 mL, 5 Refills, Maintenance, 02/02/22 10:33:00 EDT, Solution, [facility]/pharmacy #0693, Partial fill upon [...] team information Personnel Name: Maritza CABEZAS, Bailey January Ana Paula Address: Address: [address] [place] [id number]
--- OUTSIDE RECORDS SUMMARY | 2024-06-17 06:05 | XMS_ITS | Continuity of Care Document ---
Author Organization [facility] Address [address] [place] [address]- Care Team Providers Care Cemetery Keeper Name Role Phone Maritza CABEZAS, Bailey Goss Primary Care Physic pierre Encounter [facility] ACCT R [id number] Date(s): 07/26/21 - 11/02/21 [facility] [address] [place] [address]- Attending Physician: Jayde Key NP Admitting Physician: Yesi TIM, Jayde Referring Physician: Bailey Salas MD Allergies, Adverse Reactions, Alerts No Known Allergies Immunizations Given and Recorded Vaccine Date Status Refusal Reason SARS-CoV-2 mRNA (kabzfwc-dtwo-hxvfo) vax 10/18/21 Given influenza virus vaccine, inactivated [...] 23-valent vaccine 7 05/28/09 Given 1Result Comment: [facility]: 32780-627-82 2Admin Note: By Dr Granado 3Admin Note: Dr Granado 4Admin Note: [facility] 5Result Comment: Lot [id number]) [id number] 6Admin Note: dr hall 7Result Comment: [employer] [id number] L287x 27feblo Medications abacavir 300 mg oral tablet 2 tablet = 600 mg, By Mouth, Daily, # 60 tablet, 0 Refills, Maintenance, 10/19/21 12:09:00 EST, Tablet, [facility], Partial fill upon patient [...] Refills, Maintenance, 10/19/21 12:07:00 EST, EC Tablet, [facility], Partial fill upon patient request [...] Maintenance, 08/30/20 8:19:00 EST, Tablet, [facility]/pharmacy #[id number], 170, cm, 03/29/20 10:57:00 EDT, Height, 92, kg, 09/14/19 14:18:00 EST, Dry Weight Start Date: 08/30/20 Stop Date: 08/25/21 Status: Ordered dolutegravir 50 mg oral tablet 1 tablet = 50 mg, By Mouth, Daily, # 30 tablet, 0 Refills, Maintenance, 10/19/21 12:09:00 EST, Tablet, [facility], Partial fill upon patient [...] 0 Refills, Maintenance, 10/19/21 12:13:00 EST, Tablet, [facility], Partial fill upon patient request if the prescription is for a schedule II opioid drug., 175, cm, 10/19/21 8:07:00 EST, H... Start Date: 10/19/21 Status: Ordered metoprolol 50 mg oral tablet 50 mg, 1, tablet, By Mouth, 2 times a day, # 60 tablet, Refills 0, Tot. Refills 0, Maintenance, 10/19/21 12:08:00 EST, Route to Pharmacy Electronically, [facility], Partial fill upon patient request if the prescription is for a schedule... Start Date: 10/19/21 Status: Ordered NovoLOG FlexPen 100 units/mL subcutaneous solution See Instructions, Subcutaneous Injection, 3 times daily before meals; 100-150 10 units; 151-200 12 units; 201-250 14 units; 251-300 16 units; 301-350 18 units; Over 350 20 units, # 3 each, 5 Refills,Maintenance, 10/19/21 12:47:00 EST, [facility] P... Start Date: 10/19/21 Stop Date: 04/17/22 Status: Ordered Pen [place], 31 G x 5 mm BD Ultra [...] CAPSULE BY MOUTH EVERY DAY, [facility]/pharmacy #[id number] Start Date: 04/06/19 Status: Ordered Testopel [...] Maintenance, 10/26/21 16:50:00 EST, Solution, [facility]/pharmacy #0693, Partial fill upon patient request if the prescription is for a schedule II opioid dr... Start Date: 10/26/21 Status: Ordered warfarin 1 mg oral tablet See Instructions, Take 4 tablets (4mg tonight), then as directed based on daily INR, # 120 tablet, 0 Refills, Maintenance, 10/19/21 12:14:00 EST, Tablet, [facility], Partial fill upon patient [...]
--- OUTSIDE RECORDS SUMMARY | 2024-06-17 06:05 | XMS_ITS | Continuity of Care Document ---
Author Organization [facility] Address [address] [place] [address]- Care Team Providers Care Erp Manager Name Role Phone Geoff Glover DO Primary Care Physician [facility]): 01[facility]20 - 02/03/20 [facility] [address] [place] [address]- [facility] Attending Physician: Marie Ferrer Admitting Physician: AdmtrMarie Referring Physician: AdmtrMarie Allergies, Adverse Reactions, Alerts [...] 3Admin Note: [facility] 4Result Comment: Lot [id number] (E) [id number] 5Admin Note: dr hall 6Result Comment: [employer] [id number] L287x 27feblo Medications amlodipine 10 mg oral tablet 10 mg, 1, tablet, By Mouth, Daily, pharmacy wants 90 days, # 90 tablet, Refills 1, Tot. Refills 1, Maintenance, 07/10/16 21:05:57, Route to Pharmacy Electronically, [id number], [facility]/pharmacy #[id number] Start Date: 07/10/16 Stop Date: [...] 02/07/20 10:45:00 EDT, 01/31/20 10:45:00 EDT, Tablet, [facility]/pharmacy #0693, 170.5, cm, 01/31/20 10:18:00 EDT, Height, 92, kg, 09/14/19 14:18:00 EST, Dry Weight Start Date: 01/31/20 Stop Date: 02/07/20 Status: Ordered BD UF RADHA PEN NEEDLE [id number] See Instructions, # 120 Unknown, Refills 5 Tot. Refills 5, USE DAILY, [facility]/pharmacy #0693 Start Date: 07/10/19 Status: Ordered buPROPion 150 mg/24 hours (XL) oral tablet, extended release 1 tablet = 150 mg, By Mouth, Every 24 hours, # 90 tablet, 1 Refills, Maintenance, 08/26/19 9:56:00 EST, ER Tablet, [facility]/pharmacy #0693, 1 tablet By Mouth Every [...] CHECK BLOOD SUGARS 3 TIMES A DAY, [facility]/pharmacy #0693 Start Date: 03/10/19 Status: Ordered [...] Maintenance, 07/07/18 11:08:24 EDT,Route to Pharmacy Electronically, [id number], [facility]/pharmacy #0693 Start Date: 07/07/18 Status: Ordered metFORMIN 500 mg oral tablet, extended release 2 tablet = 1,000 mg, By Mouth, Daily, # 180 tablet, 1 Refills, Maintenance, 11/09/19 16:29:00 EST, [facility]/pharmacy #0693, D/C RX on file 1000mg [...] TAKE 1 CAPSULE BY MOUTH EVERY DAY, [facility]/pharmacy #0693 Start Date: 06/01/19 Status: Ordered tamsulosin 0.4 mg oral capsule See Instructions, # 90 capsule, TAKE 1 CAPSULE BY MOUTH EVERY DAY, [facility]/pharmacy #0693 Start Date: 04/06/19 Status: Ordered [...] mL, 5 Refills, Maintenance, 09/18/19 15:13:00 EST, [facility]/pharmacy #0693, D/C RX ON FILE FOR [...]
--- OUTSIDE RECORDS SUMMARY | 2024-06-17 06:05 | XMS_ITS | Continuity of Care Document ---
Author Organization [facility] Address [address] [place] [address]- Care Team Providers Care Power Tool Repair Technician Name Role Phone Maritza CABEZAS, Bailey Goss Primary Care Physic pierre [facility] Date[facility]s): 06/06[facility]21 - 07/06/21 [facility] [address] [place] [address] Allergies, Adverse Reactions, Alerts Substance Reaction Severity [...] 3Admin Note: [facility] 4Result Comment: Lot [id number] (E) [id number] 5Admin Note: dr hall 6Result Comment: [employer] [id number] L287x 27feblo Medications amlodipine 10 mg oral tablet 10 mg, 1, tablet, By Mouth, Daily, pharmacy wants 90 days, # 90 tablet, Refills 1, Tot. Refills 1, Maintenance, 07/10/16 21:05:57, Route to Pharmacy Electronically, [id number], [facility]/pharmacy #0693 Start Date: 07/10/16 Stop Date: 01/06/17 Status: Ordered aspirin 81 mg oral enteric coated tablet 1 tablet = 81 mg, By Mouth, Daily, # 30 tablet, 3 Refills, Maintenance Start Date: 05/27/09 Status: Ordered BD UF RADHA PEN NEEDLE [id number] See Instructions, # 120 Unknown, Refills 5 Tot. Refills 5, USE DAILY, [facility]/pharmacy #0693 Start Date: 07/10/19 Status: [...] tablet, 1 Refills, Maintenance, 04/13/21 15:06:00 EDT, [facility]/pharmacy #0693, 90, 1 tablet By Mouth Every 24 hours, 170, cm, 03/20/21 9:07:00 EDT, Height, 92, kg, 09/14/19 14:18:00 EST, Dry Weight Start Date: 04/13/21 Status: Ordered Crestor 40 mg oral tablet 1 tablet = 40 mg, By Mouth, Daily, # 90 tablet, 3 Refills, Maintenance, 08/30/20 8:19:00 EST, Tablet, [facility]/pharmacy #0693, 170, cm, 03/29/20 10:57:00 [...] CHECK BLOOD SUGARS 3 TIMES A DAY, [facility]/pharmacy #0693 Start Date: 03/10/19 Status: [...] Maintenance, 07/07/18 11:08:24 EDT,Route to Pharmacy Electronically, [id number], [facility]/pharmacy #0693 Start Date: 07/07/18 Status: Ordered metoclopramide 10 mg oral tablet 1 tablet = 10 mg, By Mouth, 4 times a day, # 28 tablet, 0 Refills, Maintenance, 06/17/21 16:38:00 EDT, Tablet, [facility]/pharmacy #0618, Partial fill upon patient request if the [...] TAKE 1 CAPSULE BY MOUTH EVERY DAY, [facility]/pharmacy #0693 Start Date: 04/06/19 Status: Ordered tamsulosin 0.4 mg oral capsule See Instructions, TAKE 1 CAPSULE BY MOUTH EVERY DAY, # 90 capsule, Refills 1, Tot. Refills 1, Soft Stop, 03/08/21 15:59:00 EDT, Instructions Replace Required Details, Route to Pharmacy Electronically, [facility]/pharmacy #0693, 170, cm, 02/23/21 11:12:00 EDT... Start Date: 03/08/21 Status: Ordered Testopel = 300 mg, Subcutaneous Infusion, Every 3 months, 0 Refills, Maintenance, 03/26/15 23:08:01 Start Date: 03/26/15 Status: Ordered Tresiba FlexTouch 200 units/mL subcutaneous solution See Instructions, Take 110 units daily in the evening. E11.65, # 18 mL, 10 Refills, Maintenance, 03/31/21 10:22:00 EDT, [facility]/pharmacy #0693, 170, cm, 03/20/21 9:07:00 EDT, Height, 92, kg, 09/14/19 14:18:00 EST, Dry Weight Start Date: 03/31/21 Status: Ordered Triumeq oral tablet 1 tablet, By Mouth, Daily, # 90 tablet, 0 Refills, Maintenance, 02/02/21 18:11:00 EDT, [facility]/pharmacy#0693, 1 tablet By Mouth Daily, 170, cm, 01/11/21 9:05:00 EDT, Height, 92, kg, 09/14/19 14:18:00 EST, Dry Weight Start Date: 02/02/21 Status: Ordered Trulicity Pen 3 mg/0.5 mL subcutaneous solution 0.5 mL = 3 mg, Subcutaneous Injection, Every week, Take 3mg once weekly. E11.65., # 2 mL, 5 Refills, Maintenance, 04/05/21 12:10:00 EDT, Solution, [facility]/pharmacy #0693, Partial fill upon patient request if the prescription is for a schedule II opioid Start Date: 04/05/21 Status: Ordered Problem List [...]
--- OUTSIDE RECORDS SUMMARY | 2024-06-17 06:05 | XMS_ITS | Continuity of Care Document ---
Author Organization [facility] Address [address] [place] [address]- Care Team Providers Care Hide Splitter Name Role Phone Maritza CABEZAS, Bailey Goss Primary Care Physic pierre [facility]24 - 03/28/24 [facility] [address] [place] [address]- Allergies, Adverse Reactions, Alerts No Known Allergies Immunizations Given and Recorded Vaccine Date Status Refusal Reason zoster vaccine, inactivated 04/19/23 Recorded tetanus/diphtheria/pertussis, acel(Tdap) 03/28/23 Given pneumococcal 23-valent vaccine 03/28/23 Given pneumococcal 23-valent vaccine 1 05/28/09 Given [id number] 12y+ bivalent booster vax 08/28/22 Recorded influenza [...] inactivated 6 05/28/09 Gi isidra SARS-CoV-2 mRNA (isemnmh-qoun-tdezv) vax 10/18/21 Given SARS-CoV-2 (COVID-19) mRNA BNT-162b2 vac 01/01/21 Recorded SARS-CoV-2 (COVID-19) mRNA BNT-162b2 vac 12/10/20 Recorded Influenza Virus Vaccine (oldterm) 06/13/19 Recorde d pneumococcal 13-valent vaccine 10/03/16 Given Fluvirin (oldterm) 05/23/11 Given Tet/diphth/pertussis, acel (oldterm) 05/23/11 Give n FluLaval (oldterm) 7 06/09/10 Given 1Result Comment: [employer] [id number] 27feblo 2Result Comment: [facility]: 40342-807-56 3Admin Note: By Dr Granado 4Admin Note: Dr Granado 5Admin Note: [facility] 6Result Comment: Lot [id number] 7Admin Note: dr hall Medications Alcohol Pads [...] Refills, Maintenance, 02/10/24 16:21:00 EDT, XL Tablet, [facility]/pharmacy #0693, Partial fill [...] 10/03/23 1:26:00 EST, Route to Pharmacy Electronically, [facility]/pharmacy #[id number], Partial fill upon patient request if the prescription is for a... Start Date: 10/03/23 Status: Ordered finasteride 5 mg oral tablet 1 tablet = 5 mg, By Mouth, Daily, blister pack, # 90 tablet, 0 Refills, Maintenance, 10/03/23 1:27:00 EST, Tablet, [facility]/pharmacy #0693, Partial fill [...] Refills, Maintenance, 03/03/24 12:25:00 EDT, REC Powder, [facility]/pharmacy #0693, Partial fill upon [...] 10/03/23 1:27:00 EST, Route to Pharmacy Electronically, [facility]/pharmacy #0642, Partial fill upon patient request if the prescription is for a schedule I... Start Date: 10/03/23 Status: Ordered metoprolol succinate 200 mg oral capsule, extended release 1 capsule = 200 mg, By Mouth, Daily, blister pack, # 90 capsule, 0 Refills, Maintenance, 10/03/23 1:28:00 EST, ER Capsule, [facility]/pharmacy #0693, Partial fill upon patient request if the prescription isfor a schedule II opioid drug., 172, cm, 10/02/23 7... Start Date: 10/03/23 Status: Ordered Myrbetriq 50 mg oral tablet, extended release 1 tablet = 50 mg, By Mouth, Daily, blister pack do not crush or chew, # 90 tablet, 0 Refills, Maintenance, 10/03/23 1:28:00 EST, ER Tablet, [facility]/pharmacy #0693, Partial fill upon patient request if the prescription is for a schedule II opioid drug., 17... Start Date: 10/03/23 Status: Ordered ondansetron 4 mg oral tablet, disintegrating 1 tablet = 4 mg, By Mouth, Every 8 hours, PRN Nausea & Vomiting, # 9 tablet, 0 Refills, Maintenance, 01/30/24 22:44:00 EDT, Tablet, [facility]/pharmacy #0693, Partial [...] Weight Start Date: 02/10/24 Status: Ordered Pen Neligh, 31 G x 5 mm BD Ultra [...] 0 Refills, Maintenance, 10/03/23 1:28:00 EST, Tablet, [facility]/pharmacy #0693, Partial fill upon patient request if the prescription is for a schedule II opioid drug., 172, cm, 10/02/23 7:02:00... Start Date: 10/03/23 Status: Ordered tamsulosin 0.4 mg oral capsule 0.4 mg, 1, capsule, By Mouth, Daily, blister pack, # 90 capsule, Refills 0, Tot. Refills 0, Maintenance, 10/03/23 1:29:00 EST, Route to Pharmacy Electronically, [facility]/pharmacy #0693, Partial fill upon [...] Care Team Personnel Name: Nuzhat Sainz Position: [facility] Outreach Member Role: Lifetime Consulting Physician Name: Janel Mead RN Position: [facility] RN Member Role: Primary Care Nurse Name: Maritza CABEZAS, Bailey Goss Position: [facility] Physician - Primary Care Member Role: PCP Address: Address: [address] [place] [address]- [place] Name: Derik Gaines MD Position: [facility] Renal MD Member Role: Lifetime Consulting Physician Address: Address: [address] [facility] [address] [facility] [place] [address]- [place] Name: Kiana Castelan [place] Position: [facility] AMB [place] Member Role: Lifetime Consulting Physician Name: Bayron Brandt DO Position: [facility] Renal MD Member Role: Lifetime Consulting Physician Address: Address: [address] [facility] [address] [facility] [place] [address]- [place] Name: Eric Garcia RN Position: [facility] RN Member Role: Primary Care Nurse Name: Jaclyn Schulte RN Position: [facility] RN Member Role: Primary Care Nurse Name: Kavon Liu MD Position: Reference Physician Member Role: Lifetime Consulting Physician Address: Address: [address] [place] [address] [address] [facility] [place] [address]- Care Team Related Persons Name: BO PERALES Address: home [address] [place] [address] Name: DANA BALTAZAR Address: home [address] [place] [address] Name: NALDO AVALOS Address: home [address] [place] [address] Name: NALDO BARNARD Address: home [address] [place] [address]
--- OUTSIDE RECORDS SUMMARY | 2024-06-17 06:05 | XMS_ITS | Continuity of Care Document ---
Author Organization [facility] Address [address] [facility] [place] [address]- Care Team Providers Care Polarity Tester Name Role Phone Geoff Glover DO Primary Care Physician [phone] Encounter 10/23/19 - 10/30/19 [facility] [address] [facility], [facility] [address] [place] [address]- [phone] Attending Physician: Geoff Glover DO Admitting Physician: Geoff Glover DO Referring Physician: Geoff Glover DO Allergies, Adverse [...] 3Admin Note: [facility] 4Result Comment: Lot [id number] (E) [id number] 5Admin Note: dr hall 6Result Comment: [employer] [id number] 27feblo Medications amlodipine 10 mg oral tablet 10 mg, 1, tablet, By Mouth, Daily, pharmacy wants 90 days, # 90 tablet, Refills 1, Tot. Refills 1, Maintenance, 07/10/16 21:05:57, Route to Pharmacy Electronically, [id number], [facility]/pharmacy #[id number] Start Date: 07/10/16 Stop Date: 01/06/17 Status: Ordered aspirin 81 mg oral enteric coated tablet 1 tablet = 81 mg, By Mouth, Daily, # 30 tablet, 3 Refills, Maintenance Start Date: 05/27/09 Status: Ordered BD UF RADHA PEN NEEDLE [id number] See Instructions, # 120 Unknown, Refills 5 Tot. Refills 5, USE DAILY, [facility]/pharmacy #0693 Start Date: 07/10/19 Status: Ordered buPROPion 150 mg/24 hours (XL) oral tablet, extended release 1 tablet = 150 mg, By Mouth, Every 24 hours, # 90 tablet, 1 Refills, Maintenance, 08/26/19 9:56:00 EST, ER Tablet, [facility]/pharmacy #0693, 1 tablet By Mouth Every 24 [...] BLOOD SUGARS 3 TIMES A DAY, [facility]/pharmacy #0693 Start Date: 03/10/19 Status: Ordered Freestyle [...] Maintenance, 07/07/18 11:08:24 EDT,Route to Pharmacy Electronically, [id number], [facility]/pharmacy #0693 Start Date: 07/07/18 Status: Ordered metFORMIN 500 mg oral tablet, extended release 2 tablet = 1,000 mg, By Mouth, Daily, # 120 tablet, 11 Refills, Maintenance, 10/21/18 17:17:09 EST,[facility]/pharm[facility] #0693, D/C RX on file 1000mg not [...] 1 CAPSULE BY MOUTH EVERY DAY, [facility]/pharmacy #0693 Start Date: 06/01/19 Status: Ordered tamsulosin [...] mL, 5 Refills, Maintenance, 09/18/19 15:13:00 EST, [facility]/pharmacy #0693, D/C RX ON FILE FOR 30 [...] Hyperlipidemia(Confirmed) 05/23/11 Active Obstructive sleep apnea synd lcaribel, mild(Confirmed) Active Respiratory symptom(Confirmed) 1 Active 1snoring Social History Social History Type Response Smoking Status Former smoker, quit more than 30 days ago entered on: 12/29/18 Sex
--- OUTSIDE RECORDS SUMMARY | 2024-06-17 06:05 | XMS_ITS | Continuity of Care Document ---
Author Organization [facility] Address [address] [place] [address]- Care Team Providers Care Portfolio Management Marketing Name Role Phone Maritza CABEZAS, Bailey Goss Primary Care Physic pierre Encounter [facility] Date(s): 10/01/22 - 10/31/22 [facility] [address] [place] [address] Attending Physician: Marie Ferrer Admitting Physician: AdmtrMarie Referring Physician: Admtr, Ar8 Allergies, Adverse Reactions, Alerts No Known Allergies Immunizations Given and Recorded Vaccine Date Status Refusal Reason SARS-CoV-2 mRNA (noaaoek-gavs-qxfde) vax 10/18/21 Given influenza virus vaccine, inactivated [...] 23-valent vaccine 7 05/28/09 Given 1Result Comment: [facility]: 76477-544-03 2Admin Note: By Dr Granado 3Admin Note: Dr Granado 4Admin Note: [facility]INIC 5Result Comment: Lot [id number] 6Admin Note: dr hall 7Result Comment: [employer] [id number] L287x 27feblo Medications amLODIPine 2.5 mg oral tablet 2.5 mg, 1, tablet, By Mouth, Daily, # 90 tablet, Refills 3, Tot. Refills 3, Maintenance, 10/03/22 15:00:00 EST, Route to Pharmacy Electronically, [facility]/pharmacy #0693, Partial fill upon patient requestif the prescription is for a schedule II opioid sandip... Start Date: 10/03/22 Status: Ordered Aricept 5 mg oral tablet 5 mg, 1, tablet, By Mouth, Daily at bedtime, For memory loss, # 90 tablet, Refills 3, Tot. Refills 3, Maintenance, 08/17/22 17:19:00 EST, Route to Pharmacy Electronically, [facility]/pharmacy #0693, Partialfill upon patient request if the prescription is fo... Start Date: 08/17/22 Status: Ordered aspirin 81 mg oral delayed release tablet = 81 mg, By Mouth, Daily, # 30 tablet, 0 Refills, Maintenance, 11/10/21 15:20:00 EST, EC Tablet, [facility]/pharmacy #0693, Partial [...] tablet, 1 Refills, Maintenance, 04/20/22 13:02:00 EDT, [facility]/pharmacy #0693, 1 [...] 04/17/22 Stop Date: 01/12/23 Status: Ordered Pen Painter, 31 G x 5 mm BD Ultra [...] [facility]/pharmacy #0693, 175, cm, 10/03/22 14:39:00 EST... Start Date: 10/29/22 Status: Ordered Testopel = 300 mg, Subcutaneous Infusion, Every 3 months, 0 Refills, Maintenance, 03/26/15 23:08:01 Start Date: 03/26/15 Status: Ordered Tresiba FlexTouch 200 units/mL subcutaneous solution See Instructions, Take 22 units daily at lunch. E11.65, # 9 mL, 10 Refills, Maintenance, 05/28/22 13:10:00 EDT, [facility]/pharmacy #0693, 175, cm, 02/06/22 16:03:00 EDT, Height, 78.5, kg, 10/10/21 0:43:00 EST, Dry Weight Start Date: 05/28/22 Status: Ordered Trulicity Pen 3 mg/0.5 mL subcutaneous solution 0.5 mL = 3 mg, Subcutaneous Injection, Every week, Take 3mg once weekly. E11.65., # 2 mL, 5 Refills, Maintenance, 10/18/22 16:22:00 EST, Solution, [facility], Partial fill upon patient request [...] more than 30 days ago entered on: 4/22/19 Sex Patient Care team information Care Team Personnel Name: Nuzhat Sainz Position: [facility] Outreach Member Role: Lifetime Consulting Physician Name: Maritza CABEZAS, Bailey Goss Position: [facility] Primary Care Physician Member Role: PCP Address: Address: [address] [place] [address]- [place] Name: Derik Gaines MD Position: [facility] Renal MD Member Role: Lifetime Consulting Physician Address: Address: [address] [facility] [address] [facility] [place] [address]- [place] Name: Jazmin Florez RN Position: [facility] RN Supv Member Role: Primary Care Nurse Name: Kiana Castelan Position: [facility] Outreach Member Role: Lifetime Consulting Physician Name: Bayron Brandt DO Position: [facility] Renal MD Member Role: Lifetime Consulting Physician Address: Address: [address] [facility] [address] [facility] [place] [address]- Name: Amie Caldwell PharmD Position: [facility] Associate Professional Member Role: Lifetime Consulting Provider Address: Address: [address] [facility] [place] [address]- [place] Name: Eric Garcia RN Position: [facility] RN Member Role: Primary Care Nurse Name: Jaclyn Schulte RN Position: [facility] RN Member Role: Primary Care Nurse Name: Kavon Liu MD Position: Reference Physician Member Role: Lifetime Consulting Physician Address: Address: [address] [place] [address] [address] [facility] [place] [address]- Care Team Related Persons Name: DANA PERALES Address: home [address] [place] [address] Name: BO PERALES Address: home [address] [place] [address] Name: DANA BALTAZAR Address: home [address] [place] [address] Name: NALDO AVALOS Address: home [address] [place] [address] Name: NALDO BARNARD Address: home [address] [place] [address]
--- OUTSIDE RECORDS SUMMARY | 2024-06-17 06:05 | XMS_ITS | Continuity of Care Document ---
Author Organization [facility] Address [address] [place] [address]- Care Team Providers Care Inbound Sales Representative Name Role Phone Maritza CABEZAS, Bailey Goss Primary Care Physic pierre [facility] Date[facility]s): 10/18/22 - 11/17/22 [facility] [address] [place] [address] Allergies, Adverse Reactions, Alerts No Known Allergies Immunizations Given and Recorded Vaccine Date Status Refusal Reason SARS-CoV-2 mRNA (awxahtp-tdkm-ypkqk) vax 10/18/21 Given influenza virus vaccine, inactivated [...] Given 1Result Comment: [facility]: 62945-510-56 2Admin Note: By Dr Granado 3Admin Note: Dr Granado 4Admin Note: [facility] 5Result Comment: Lot [id number] (E) [id number] 6Admin Note: dr hall 7Result Comment: [employer] [id number] L287x 27feblo Medications amLODIPine 2.5 mg oral tablet 2.5 mg, 1, tablet, By Mouth, Daily, # 90 tablet, Refills 3, Tot. Refills 3, Maintenance, 10/03/22 15:00:00 EST, Route to Pharmacy Electronically, [facility]/pharmacy #[id number], Partial fill upon patient requestif the prescription is for a schedule II opioid sandip... Start Date: 10/03/22 Status: Ordered Aricept 5 mg oral tablet 5 mg, 1, tablet, By Mouth, Daily at bedtime, For memory loss, # 90 tablet, Refills 3, Tot. Refills 3, Maintenance, 08/17/22 17:19:00 EST, Route to Pharmacy Electronically, [facility]/pharmacy #0693, Partialfill upon patient request if [...] each, 8 Refills, Maintenance, 04/17/22 12:47:00 EDT, [facility]/pharmacy #0693, Partial fill upon patient request if the prescription is for... Start Date: 04/17/22 Stop Date: 01/12/23 Status: Ordered Pen [place], 31 G x 5 mm BD Ultra [...] [facility]/pharmacy #0693, 175, cm, 10/03/22 14:39:00 EST... [...] 5 Refills, Maintenance, 10/18/22 16:22:00 EST, Solution, [facility], Partial fill upon [...] Care Team Personnel Name: Nuzhat Sainz Position: [facility] Outreach Member Role: Lifetime Consulting Physician Name: Maritza CABEZAS, Bailey Goss Position: [facility] Primary Care Physician Member Role: PCP Address: Address: [address] [place] [address]- Name: Derik Gaines MD Position: [facility] Renal MD Member Role: Lifetime Consulting Physician Address: Address: [address] [place] [address] [address] [facility] [place] [address]- Name: Jazmin Florez RN Position: [facility] RN Supv Member Role: Primary Care Nurse Name: Kiana Castelan Position: [facility] Outreach Member Role: Lifetime Consulting Physician Name: Bayron Brandt DO Position: [facility] Renal MD Member Role: Lifetime Consulting Physician Address: Address: [address] [facility] [address] [facility] [place] [address]- [place] Name: Amie Caldwell PharmD Position: [facility] Associate Professional Member Role: Lifetime Consulting Provider Address: Address: [address] [place] [address]- [place] Name: Eric Garcia RN Position: [facility] RN Member Role: Primary Care Nurse Name: Jaclyn Schulte RN Position: [facility] RN Member Role: Primary Care Nurse Name: Kavon Liu MD Position: Reference Physician Member Role: Lifetime Consulting Physician Address: Address: [address] [place] [address] [address] [facility] [place] [address]- Care Team Related Persons Name: DANA PERALES Address: home [address] [place] [address] Name: BO PERALES Address: home [address] [address] Name: DANA BALTAZAR Address: home [address] [address] Name: NALDO AVALOS Address: home [address] [place] [address] Name: NALDO BARNARD Address: home [address] [place] [address]
--- OUTSIDE RECORDS SUMMARY | 2024-06-17 06:05 | XMS_ITS | Continuity of Care Document ---
Author Organization [facility] Address [address] [place] [address]- Care Team Providers Care Business Liaison Manager Name Role Phone Geoff Glover DO Primary Care Physician [facility]): 01[facility]11[facility]20 - 02/10/20 [facility] [address] [place] [address]- [facility] Attending Physician: Marie Ferrer Admitting Physician: AdmtrMarie Referring Physician: Admtr, ArNatasha Allergies, Adverse Reactions, Alerts Substance Reaction Severity [...] 3Admin Note: [facility] 4Result Comment: Lot [id number] (E) [id number] 5Admin Note: dr hall 6Result Comment: [employer] [id number] L287x 27feblo Medications amlodipine 10 mg oral tablet 10 mg, 1, tablet, By Mouth, Daily, pharmacy wants 90 days, # 90 tablet, Refills 1, Tot. Refills 1, Maintenance, 07/10/16 21:05:57, Route to Pharmacy Electronically, [id number], [facility]/pharmacy #[id number] Start Date: 07/10/16 Stop Date: 01/06/17 Status: Ordered aspirin 81 mg oral enteric coated tablet 1 tablet = 81 mg, By Mouth, Daily, # 30 tablet, 3 Refills, Maintenance Start Date: 05/27/09 Status: Ordered BD UF RADHA PEN NEEDLE [id number] See Instructions, # 120 Unknown, Refills 5 Tot. Refills 5, USE DAILY, [facility]/pharmacy #[id number] Start Date: 07/10/19 Status: Ordered buPROPion 150 mg/24 hours (XL) oral tablet, extended release 1 tablet = 150 mg, By Mouth, Every 24 hours, # 90 tablet, 1 Refills, Maintenance, 08/26/19 9:56:00 EST, ER Tablet, [facility]/pharmacy #0693, 1 tablet By Mouth [...] CHECK BLOOD SUGARS 3 TIMES A DAY, [facility]/pharmacy #0693 Start Date: 03/10/19 Status: [...] Maintenance, 07/07/18 11:08:24 EDT,Route to Pharmacy Electronically, [id number], [facility]/pharmacy #0693 Start Date: 07/07/18 Status: Ordered metFORMIN 500 mg oral tablet, extended release 2 tablet = 1,000 mg, By Mouth, Daily, # 180 tablet, 1 Refills, Maintenance, 11/09/19 16:29:00 EST, [facility]/pharmacy #0693, D/C RX on file [...] TAKE 1 CAPSULE BY MOUTH EVERY DAY, [facility]/pharmacy #0693 Start Date: 04/06/19 Status: Ordered tamsulosin 0.4 mg oral capsule See Instructions, TAKE 1 CAPSULE BY MOUTH EVERY DAY, # 90 capsule, Refills 1, Tot. Refills 1, Soft Stop, 02/09/20 14:57:00 EDT, Instructions Replace Required Details, Route to Pharmacy Electronically, [facility]/pharmacy #0693, 170.5, cm, 01/31/20 10:18:00 E... [...] mL, 5 Refills, Maintenance, 09/18/19 15:13:00 EST, [facility]/pharmacy #0693, D/C RX ON FILE FOR 30 DAY SUPPLY; Rx resent from 07/16/19., 170.5, cm, 09/18/19 14:43:00 EST, Height, 92, kg, /... Start Date: 09/18/19 Status: Ordered Triumeq oral [...]
--- OUTSIDE RECORDS SUMMARY | 2024-06-17 06:05 | XMS_ITS | Continuity of Care Document ---
Author Organization [facility] Address [address] [place] [address]- Care Team Providers Care Substation Engineer Name Role Phone Geoff Glover DO Primary Care Physician Encounter [facility] Date(s): 10/21/19 - 02/18/20 [facility] [address] [place] [address]- [facility] Attending Physician: Geoff Glover DO Allergies, Adverse [...] 3Admin Note: [facility] 4Result Comment: Lot [id number] (E) [id number] 5Admin Note: dr hall 6Result Comment: [employer] [id number] L287x 27feblo Medications amlodipine 10 mg oral tablet 10 mg, 1, tablet, By Mouth, Daily, pharmacy wants 90 days, # 90 tablet, Refills 1, Tot. Refills 1, Maintenance, 07/10/16 21:05:57, Route to Pharmacy Electronically, [id number], [facility]/pharmacy #0693 Start Date: 07/10/16 Stop Date: 01/06/17 Status: Ordered aspirin 81 mg oral enteric coated tablet 1 tablet = 81 mg, By Mouth, Daily, # 30 tablet, 3 Refills, Maintenance Start Date: 05/27/09 Status: Ordered BD UF RADHA PEN NEEDLE [id number] See Instructions, # 120 Unknown, Refills 5 Tot. Refills 5, USE DAILY, [facility]/pharmacy #0693 Start Date: 07/10/19 Status: Ordered buPROPion 150 mg/24 hours (XL) oral tablet, extended release 1 tablet = 150 mg, By Mouth, Every 24 hours, # 90 tablet, 1 Refills, Maintenance, 08/26/19 9:56:00 EST, ER Tablet, [facility]/pharmacy #0693, 1 tablet By Mouth Every [...] CHECK BLOOD SUGARS 3 TIMES A DAY, [facility]/pharmacy #0693 Start Date: 03/10/19 Status: Ordered [...] Maintenance, 07/07/18 11:08:24 EDT,Route to Pharmacy Electronically, [id number], [facility]/pharmacy #0693 Start Date: 07/07/18 Status: Ordered metFORMIN 500 mg oral tablet, extended release 2 tablet = 1,000 mg, By Mouth, Daily, # 180 tablet, 1 Refills, Maintenance, 11/09/19 16:29:00 EST, [facility]/pharmacy #0693, D/C RX on file 1000mg [...] TAKE 1 CAPSULE BY MOUTH EVERY DAY, [facility]/pharmacy #0693 Start Date: 04/06/19 Status: Ordered tamsulosin 0.4 mg oral capsule See Instructions, TAKE 1 CAPSULE BY MOUTH EVERY DAY, # 90 capsule, Refills 1, Tot. Refills 1, Soft Stop, 02/09/20 14:57:00 EDT, Instructions Replace Required Details, Route to Pharmacy Electronically, [facility]/pharmacy #0693, 170.5, cm, 01/31/20 10:18:00 E... [...] mL, 5 Refills, Maintenance, 09/18/19 15:13:00 EST, [facility]/pharmacy #0693, D/C RX ON FILE FOR [...] 3 Refills, Maintenance, 09/18/19 15:11:00 EST, Solution, [facility]/pharmacy #0693, 170.5, cm, 09/18/19 14:43:00 EST, Height, [...]
--- OUTSIDE RECORDS SUMMARY | 2024-06-17 06:05 | XMS_ITS | Continuity of Care Document ---
Author Organization [facility] Address [address] [place] [address]- Care Team Providers Care Licensed Funeral Director And Embalmer Name Role Phone Geoff Glover DO Primary Care Physician [phone] [facility] - 01/22/20 [facility] [address] [place] [address]- [facility] Attending Physician: Didier Levin MD Admitting Physician: Ollie CABEZAS, Didier Referring Physician: Geoff Glover DO Allergies, Adverse [...] 3Admin Note: [facility] 4Result Comment: Lot [id number] (E) [id number] 5Admin Note: dr hall 6Result Comment: [employer] [id number] L287x 27feblo Medications amlodipine 10 mg oral tablet 10 mg, 1, tablet, By Mouth, Daily, pharmacy wants 90 days, # 90 tablet, Refills 1, Tot. Refills 1, Maintenance, 07/10/16 21:05:57, Route to Pharmacy Electronically, [id number], [facility]/pharmacy #[id number] Start Date: 07/10/16 Stop Date: 01/06/17 Status: Ordered aspirin 81 mg oral enteric coated tablet 1 tablet = 81 mg, By Mouth, Daily, # 30 tablet, 3 Refills, Maintenance Start Date: 05/27/09 Status: Ordered BD UF RADHA PEN NEEDLE [id number] See Instructions, # 120 Unknown, Refills 5 Tot. Refills 5, USE DAILY, [facility]/pharmacy #[id number] Start Date: 07/10/19 Status: Ordered buPROPion 150 mg/24 hours (XL) oral tablet, extended release 1 tablet = 150 mg, By Mouth, Every 24 hours, # 90 tablet, 1 Refills, Maintenance, 08/26/19 9:56:00 EST, ER Tablet, [facility]/pharmacy #[id number], 1 tablet By Mouth [...] Refills, Maintenance, 05/27/18 14:44:17 EDT Start Date: 9/18/18 Status: Ordered Freestyle Lite Lancets See Instructions, [...] CHECK BLOOD SUGARS 3 TIMES A DAY, [facility]/pharmacy #[id number] Start Date: 03/10/19 Status: [...] Maintenance, 07/07/18 11:08:24 EDT,Route to Pharmacy Electronically, [id number], [facility]/pharmacy #[id number] Start Date: 07/07/18 Status: Ordered metFORMIN 500 mg oral tablet, extended release 2 tablet = 1,000 mg, By Mouth, Daily, # 180 tablet, 1 Refills, Maintenance, 11/09/19 16:29:00 EST, [facility]/pharmacy #[id number], D/C RX on file [...] TAKE 1 CAPSULE BY MOUTH EVERY DAY, [facility]/pharmacy #[id number] Start Date: 06/01/19 Status: [...] mL, 5 Refills, Maintenance, 09/18/19 15:13:00 EST, [facility]/pharmacy #[id number], D/C RX ON FILE [...]
--- OUTSIDE RECORDS SUMMARY | 2024-06-17 06:05 | XMS_ITS | Continuity of Care Document ---
Author Organization [facility] Address [address] [place] [address]- Care Team Providers Care Oil Process Stillman Name Role Phone Maritza CABEZAS, Bailey Goss Primary Care Physic pierre [facility]): 10[facility]18[facility]23 - 11/17/23 [facility] [address] [place] [address]- Attending Physician: AdmMarie pizano Admitting Physician: AdmtrMarie Referring Physician: Admtr, Ar8 Allergies, Adverse Reactions, Alerts No Known Allergies Immunizations Given and Recorded Vaccine Date Status Refusal Reason zoster vaccine, inactivated 04/19/23 Recorded tetanus/diphtheria/pertussis, acel(Tdap) 03/28/23 Given pneumococcal 23-valent vaccine 03/28/23 Given pneumococcal 23-valent vaccine 1 05/28/09 Given [id number] 12y+ bivalent booster vax 08/28/22 Recorded influenza [...] inactivated 6 05/28/09 Gi isidra SARS-CoV-2 mRNA (opqsfrm-gvdv-lapix) vax 10/18/21 Given SARS-CoV-2 (COVID-19) mRNA BNT-162b2 vac 01/01/21 Recorded SARS-CoV-2 (COVID-19) mRNA BNT-162b2 vac 12/10/20 Recorded Influenza Virus Vaccine (oldterm) 06/13/19 Recorde d pneumococcal 13-valent vaccine 10/03/16 Given Fluvirin (oldterm) 05/23/11 Given Tet/diphth/pertussis, acel (oldterm) 05/23/11 Give n FluLaval (oldterm) 7 06/09/10 Given 1Result Comment: [employer] [id number] L287x 27feblo 2Result Comment: [facility]: 94078-853-47 3Admin Note: By Dr Granado 4Admin Note: Dr Granado 5Admin Note: [facility] 6Result Comment: Lot [id number] (E) [id number] 7Admin Note: dr hall Medications Alcohol Pads [...] Pharmacy Electronically, [facility]/pharmacy #[id number], Partial fill upon patient request if the [...] 10/03/23 Stop Date: 11/02/23 Status: Ordered Pen [place], 31 G x 5 mm BD Ultra [...] Care Team Personnel Name: Nuzhat Sainz Position: [facility] Outreach Member Role: Lifetime Consulting Physician Name: Janel Mead RN Position: [facility] RN Member Role: Primary Care Nurse Name: Maritza CABEZAS, Bailey Goss Position: [facility] Physician - Primary Care Member Role: PCP Address: Address: [address] [place] [address]- Name: Derik Gaines MD Position: [facility] Renal MD Member Role: Lifetime Consulting Physician Address: Address: [address] [place], [place] [address] [place] [address]- Name: Kiana Castelan MA Position: [facility] AMB [place] Member Role: Lifetime Consulting Physician Name: Bayron Brandt DO Position: [facility] Renal MD Member Role: Lifetime Consulting Physician Address: Address: [address] [place], [place] [address]E [facility] [place] [address]- Name: Amie Caldwell PharmD Position: [facility] Associate Professional Member Role: Lifetime Consulting Provider Address: Address: [address] [facility] [place] [address]- [place] Name: Eric Garcia RN Position: [facility] RN Member Role: Primary Care Nurse Name: Jaclyn Schulte RN Position: [facility] RN Member Role: Primary Care Nurse Name: Kavon Liu MD Position: Reference Physician Member Role: Lifetime Consulting Physician Address: Address: [address] [place] [address] [address] [facility] [place] [address]- [place] Care Team Related Persons Name: DANA PERALES Address: home [address] [place] [address] Name: BO PERALES Address: home [address] [address] Name: DANA BALTAZAR Address: home [address] [address] Name: NALDO AVALOS Address: home [address] [place] [address] Name: NALDO BARNARD Address: home [address] [place] [address]
--- OUTSIDE RECORDS SUMMARY | 2024-06-17 06:06 | XMS_ITS | Continuity of Care Document ---
Author Organization [facility] Address [address] [place] [address]- Care Team Providers Care Human Resources Compliance Manager Name Role Phone Maritza CABEZAS, Bailey Goss Primary Care Physic pierre [facility] 10/24/21 - 11/23/21 [facility] [address] [place] [address] Allergies, Adverse Reactions, Alerts No Known Allergies Immunizations Given and Recorded Vaccine Date Status Refusal Reason SARS-CoV-2 mRNA (obifhuu-odzi-hhzls) vax 10/18/21 Given influenza virus vaccine, inactivated [...] 23-valent vaccine 7 05/28/09 Given 1Result Comment: [facility]: [id number] 2Admin Note: By Dr Granado 3Admin Note: Dr Granado 4Admin Note: [facility] 5Result Comment: Lot [id number] (E) [id number] 6Admin Note: dr hall 7Result Comment: [employer] [id number] L287x 27feblo Medications abacavir 300 mg oral [...] Stop 11/05/22 10:20:00EST, 11/10/21 10:20:00 EST, Tablet, [facility]/pharmacy #[id number], 175, cm, 10/27/21 13:06:00 EST, [...] 0 Refills, Maintenance, 11/10/21 15:20:00 EST, Tablet, [facility]/pharmacy #[id number], Partial fill upon patient request if the prescription is for a schedule II opioid drug., 175, cm, 10/27/21 13:06:00 EST, Height... Start Date: 11/10/21 Status: Ordered metoprolol 50 mg oral tablet 50 mg, 1, tablet, By Mouth, 2 times a day, # 60 tablet, Refills 0, Tot. Refills 0, Maintenance, 11/10/21 15:20:00 EST, Route to Pharmacy Electronically, [facility]/pharmacy #[id number], Partial fill upon patient request if the prescription is for a schedule II opi... Start Date: 11/10/21 Status: Ordered NovoLOG FlexPen 100 units/mL subcutaneous solution See Instructions, Subcutaneous Injection, 3 times daily before meals; 100-150 10 units; 151-200 12 units; 201-250 14 units; 251-300 16 units; 301-350 18 units; Over 350 20 units, # 3 each, 5 Refills,Maintenance, 10/19/21 12:47:00 EST, [facility]... Start Date: 10/19/21 Stop Date: 04/17/22 Status: Ordered Pen [place], 31 G x 5 mm BD Ultra [...] Replace Required Details, Route to Pharmacy Electronically, [facility]/pharmacy #[id number], 175, cm, 10/27/21 13:06:00 EST... [...]
--- OUTSIDE RECORDS SUMMARY | 2024-06-17 06:06 | XMS_ITS | Continuity of Care Document ---
Author Organization [facility] Address [address] [place] [address]- Care Team Providers Care Air Cargo Ground Crew Supervisor Name Role Phone Maritza CABEZAS, Bailey Goss Primary Care Physic pierre [facility]): 10/12/21 - 02/09/22 [facility] [address] [place] [address]- Attending Physician: Bailey Salas MD Allergies, Adverse Reactions, Alerts No Known Allergies Immunizations Given and Recorded Vaccine Date Status Refusal Reason SARS-CoV-2 mRNA (mevjbnz-ttwe-fbmxh) vax 10/18/21 Given influenza virus vaccine, inactivated [...] vaccine 7 05/28/09 Given 1Result Comment: [facility]: 12293-827-71 2Admin Note: By Dr Granado 3Admin Note: Dr Granado 4Admin Note: [facility] 5Result Comment: Lot [id number]) [id number] 6Admin Note: dr hall 7Result Comment: [employer] [id number] L287x 27feblo Medications abacavir 300 mg oral [...] tablet, 0 Refills, Maintenance, 12/20/21 15:57:00 EDT, [facility]/pharmacy #[id number], 1 tablet By Mouth Every 24 hours,x90 days, 175, cm, 12/06/21 8:15:00 EDT, Height, 78.5, kg, 10/10/21 0:43:00 EST, Dry Weight Start Date: 12/20/21 Stop Date: 03/20/22 Status: Ordered Crestor 40 mg oral tablet 1 tablet = 40 mg, By Mouth, Daily, for 90 days, # 90 tablet, 3 Refills, Hard Stop 11/05/22 10:20:00EST, 11/10/21 10:20:00 EST, Tablet, [facility]/pharmacy #0693, 175, cm, 10/27/21 13:06:00 [...] 0 Refills, Maintenance, 11/10/21 15:20:00 EST, Tablet, [facility]/pharmacy #0693, Partial fill upon patient request if the prescription is for a schedule II opioid drug., 175, cm, 10/27/21 13:06:00 EST, Height... Start Date: 11/10/21 Status: Ordered metoprolol 50 mg oral tablet 50 mg, 1, tablet, By Mouth, 2 times a day, # 180 tablet, Refills 0, Tot. Refills 0, Maintenance, 12/20/21 15:57:00 EDT, Route to Pharmacy Electronically, [facility]/pharmacy #0693, Partial fill upon [...] each, 8 Refills, Maintenance, 04/17/22 12:47:00 EDT, [facility]/pharmacy #0693, Partial fill upon patient request if the prescription is for... Start Date: 04/17/22 Stop Date: 01/12/23 Status: Ordered Pen [place], 31 G x 5 mm BD Ultra [...] Replace Required Details, Route to Pharmacy Electronically, [facility]/pharmacy #[id number], 175, cm, 12/06/21 8:15:00 EDT,... Start Date: 12/20/21 Status: Ordered Testopel = 300 mg, Subcutaneous Infusion, Every 3 months, 0 Refills, Maintenance, 03/26/15 23:08:01 Start Date: 03/26/15 Status: Ordered Tresiba FlexTouch 200 units/mL subcutaneous solution See Instructions, Take 28 units daily at lunch. E11.65, # 18 mL, 10 Refills, Maintenance, 03/31/21 10:22:00 EDT, [facility]/pharmacy #0693, 170, cm, 03/20/21 9:07:00 EDT, Height, 92, kg, 09/14/19 14:18:00 EST, Dry Weight Start Date: 03/31/21 Status: Ordered Trulicity Pen 3 mg/0.5 mL subcutaneous solution 0.5 mL = 3 mg, Subcutaneous Injection, Every week, Take 3mg once weekly. E11.65., # 2 mL, 5 Refills, Maintenance, 02/02/22 10:33:00 EDT, Solution, [facility]/pharmacy #[id number], Partial fill upon [...]
--- OUTSIDE RECORDS SUMMARY | 2024-06-17 06:06 | XMS_ITS | Continuity of Care Document ---
Author Organization [facility] Address [address] [place] [address]- Care Team Providers Care Personal Companion Name Role Phone Maritza CABEZAS, Bailey Goss Primary Care Physic pierre [facility]): 12/04/23 - 01/03/24 [facility] [address] [place] [address]- Allergies, Adverse Reactions, Alerts No Known Allergies Immunizations Given and Recorded Vaccine Date Status Refusal Reason zoster vaccine, inactivated 04/19/23 Recorded tetanus/diphtheria/pertussis, acel(Tdap) 03/28/23 Given pneumococcal 23-valent vaccine 03/28/23 Given pneumococcal 23-valent vaccine 1 05/28/09 Given [id number] 12y+ bivalent booster vax 08/28/22 Recorded influenza [...] inactivated 6 05/28/09 Gi isidra SARS-CoV-2 mRNA (scfmzuv-lisx-khtrl) vax 10/18/21 Given SARS-CoV-2 (COVID-19) mRNA BNT-162b2 vac 01/01/21 Recorded SARS-CoV-2 (COVID-19) mRNA BNT-162b2 vac 12/10/20 Recorded Influenza Virus Vaccine (oldterm) 06/13/19 Recorde d pneumococcal 13-valent vaccine 10/03/16 Given Fluvirin (oldterm) 05/23/11 Given Tet/diphth/pertussis, acel (oldterm) 05/23/11 Give n FluLaval (oldterm) 7 06/09/10 Given 1Result Comment: [employer] [id number] L287x 27feblo 2Result Comment: [facility]: 93649-614-08 3Admin Note: By Dr Granado 4Admin Note: Dr Granado 5Admin Note: [facility] 6Result Comment: Lot [id number] (E) [id number] 7Admin Note: dr hall Medications Alcohol Pads [...] Refills, Maintenance, 10/03/23 1:26:00 EST, XL Tablet, [facility]/pharmacy #0693, Partial fill [...] 10/03/23 1:26:00 EST, Route to Pharmacy Electronically, [facility]/pharmacy #0693, Partial fill upon patient request if the prescription is for a... Start Date: 10/03/23 Status: Ordered finasteride 5 mg oral tablet 1 tablet = 5 mg, By Mouth, Daily, blister pack, # 90 tablet, 0 Refills, Maintenance, 10/03/23 1:27:00 EST, Tablet, [facility]/pharmacy #0693, Partial fill [...] 10/03/23 1:27:00 EST, Route to Pharmacy Electronically, [facility]/pharmacy #0693, Partial fill upon patient request if the prescription is for a schedule I... Start Date: 10/03/23 Status: Ordered metoprolol succinate 200 mg oral capsule, extended release 1 capsule = 200 mg, By Mouth, Daily, blister pack, # 90 capsule, 0 Refills, Maintenance, 10/03/23 1:28:00 EST, ER Capsule, [facility]/pharmacy #0693, Partial fill upon patient request if the prescription isfor a schedule II opioid drug., 172, cm, 10/02/23 7... Start Date: 10/03/23 Status: Ordered Myrbetriq 50 mg oral tablet, extended release 1 tablet = 50 mg, By Mouth, Daily, blister pack do not crush or chew, # 90 tablet, 0 Refills, Maintenance, 10/03/23 1:28:00 EST, ER Tablet, [facility]/pharmacy #0693, Partial fill [...] 10/03/23 Stop Date: 11/02/23 Status: Ordered Pen [place], 31 G x [...] 0 Refills, Maintenance, 10/03/23 1:28:00 EST, Tablet, [facility]/pharmacy #0693, Partial fill upon patient request if the prescription is for a schedule II opioid drug., 172, cm, 10/02/23 7:02:00... Start Date: 10/03/23 Status: Ordered tamsulosin 0.4 mg oral capsule 0.4 mg, 1, capsule, By Mouth, Daily, blister pack, # 90 capsule, Refills 0, Tot. Refills 0, Maintenance, 10/03/23 1:29:00 EST, [facility], [facility] [...] Care Team Personnel Name: Nuzhat Sainz Position: [facility] Outreach Member Role: Lifetime Consulting Physician Name: Janel Mead RN Position: [facility] RN Member Role: Primary Care Nurse Name: Maritza CABEZAS, Bailey Goss Position: [facility] Physician - Primary Care Member Role: PCP Address: Address: [address] [place] [address]- [place] Name: Derik Gaines MD Position: [facility] Renal MD Member Role: Lifetime Consulting Physician Address: Address: [address] [place], [place] [address] [place] [address]- Name: Kiana Castelan MA Position: [facility] AMB [place] Member Role: Lifetime Consulting Physician Name: Bayron Brandt DO Position: [facility] Renal MD Member Role: Lifetime Consulting Physician Address: Address: [address] [place], [place] [address] [facility] [place] [address]- Name: Amie Caldwell PharmD Position: [facility] Associate Professional Member Role: Lifetime Consulting Provider Address: Address: [address] [facility] [place] [address]- Name: Eric Garcia RN Position: [facility] RN Member Role: Primary Care Nurse Name: Jaclyn Schulte RN Position: [facility] RN Member Role: Primary Care Nurse Name: Kavon Liu MD Position: Reference Physician Member Role: Lifetime Consulting Physician Address: Address: [address] [place] [address] [address] [facility] [place] [address]- [place] Care Team Related Persons Name: DANA PERALES Address: home [address] [place] [address] Name: BO PERALES Address: home [address] [place] [address] Name: DANA BALTAZAR Address: home [address] [place] [address] Name: NALDO AVALOS Address: home [address] [place] [address] Name: NALDO BARANRD Address: home [address] [place] [address]
--- OUTSIDE RECORDS SUMMARY | 2024-06-17 06:06 | XMS_ITS | Continuity of Care Document ---
Author Organization [facility] Address [address] [place] [address]- Care Team Providers Care Precision Agronomist Name Role Phone Maritza CABEZAS, Bailey Goss Primary Care Physic pierre [place] [facility] Date[place]s): 11/21/21 - 12/21/21 [facility] [address] [place] [address]- [place] Allergies, Adverse Reactions, Alerts No Known Allergies Immunizations Given and Recorded Vaccine Date Status Refusal Reason SARS-CoV-2 mRNA (qayklxp-dkji-guajg) vax 10/18/21 Given influenza virus vaccine, inactivated [...] Given 1Result Comment: [facility]: 39935-342-01 2Admin Note: By Dr Granado 3Admin Note: Dr Granado 4Admin Note: [facility] 5Result Comment: Lot [id number] (E) [id number] 6Admin Note: dr hall 7Result Comment: [employer] [id number] L287x 27feblo Medications abacavir 300 mg oral [...] Stop 11/05/22 10:20:00EST, 11/10/21 10:20:00 EST, Tablet, [facility]/pharmacy #0693, 175, cm, 10/27/21 13:06:00 [...] 0 Refills, Maintenance, 11/10/21 15:20:00 EST, Tablet, [facility]/pharmacy #0693, Partial fill upon patient request if the prescription is for a schedule II opioid drug., 175, cm, 10/27/21 13:06:00 EST, Height... Start Date: 11/10/21 Status: Ordered metoprolol 50 mg oral tablet 50 mg, 1, tablet, By Mouth, 2 times a day, # 180 tablet, Refills 0, Tot. Refills 0, Maintenance, 12/20/21 15:57:00 EDT, Route to Pharmacy Electronically, [facility]/pharmacy #[id number], Partial fill upon patientrequest [...] 3 each, 5 Refills,Maintenance, 10/19/21 12:47:00 EST, [facility] P... Start Date: 10/19/21 Stop Date: 04/17/22 Status: Ordered Pen [place], 31 G x 5 mm BD Ultra [...] Replace Required Details, Route to Pharmacy Electronically, [facility]/pharmacy #[id number], 175, cm, 12/06/21 8:15:00 [...]
--- OUTSIDE RECORDS SUMMARY | 2024-06-17 06:06 | XMS_ITS | Continuity of Care Document ---
Author Organization [facility] Address [address] [place] [address]- Care Team Providers Care Spreader Operator Automatic Name Role Phone Maritza CABEZAS, Bailey Goss Primary Care Physic pierre [facility]/24 [facility] [address] [place] [address]- Allergies, Adverse Reactions, Alerts No Known Allergies Immunizations Given and Recorded Vaccine Date Status Refusal Reason zoster vaccine, inactivated 04/19/23 Recorded tetanus/diphtheria/pertussis, acel(Tdap) 03/28/23 Given pneumococcal 23-valent vaccine 03/28/23 Given pneumococcal 23-valent vaccine 1 05/28/09 Given [id number] 12y+ bivalent booster vax 08/28/22 Recorded influenza [...] inactivated 6 05/28/09 Gi isidra SARS-CoV-2 mRNA (povktqe-vmwy-kexuk) vax 10/18/21 Given SARS-CoV-2 (COVID-19) mRNA BNT-162b2 vac 01/01/21 Recorded SARS-CoV-2 (COVID-19) mRNA BNT-162b2 vac 12/10/20 Recorded Influenza Virus Vaccine (oldterm) 06/13/19 Recorde d pneumococcal 13-valent vaccine 10/03/16 Given Fluvirin (oldterm) 05/23/11 Given Tet/diphth/pertussis, acel (oldterm) 05/23/11 Give n FluLaval (oldterm) 7 06/09/10 Given 1Result Comment: [employer] [id number] 27feblo 2Result Comment: [facility]: 68985-616-49 3Admin Note: By Dr Granado 4Admin Note: Dr Granado 5Admin Note: [facility] 6Result Comment: Lot [id number]) [id number] 7Admin Note: dr hall Medications Alcohol Pads [...] Refills, Maintenance, 02/10/24 16:21:00 EDT, XL Tablet, [facility]/pharmacy #[id number], Partial fill upon patient request [...] 10/03/23 1:26:00 EST, Route to Pharmacy Electronically, [facility]/pharmacy #[id number], Partial fill upon patient request if the prescription is for a... Start Date: 10/03/23 Status: Ordered finasteride 5 mg oral tablet 1 tablet = 5 mg, By Mouth, Daily, blister pack, # 90 tablet, 0 Refills, Maintenance, 10/03/23 1:27:00 EST, Tablet, [facility]/pharmacy #[id number], Partial fill upon patient request [...] 10/03/23 1:27:00 EST, Route to Pharmacy Electronically, [facility]/pharmacy #[id number], Partial fill upon patient request if the prescription is for a schedule I... Start Date: 10/03/23 Status: Ordered metoprolol succinate 200 mg oral capsule, extended release 1 capsule = 200 mg, By Mouth, Daily, blister pack, # 90 capsule, 0 Refills, Maintenance, 10/03/23 1:28:00 EST, ER Capsule, [facility]/pharmacy #[id number], Partial fill upon patient request if the prescription isfor a schedule II opioid drug., 172, cm, 10/02/23 7... Start Date: 10/03/23 Status: Ordered Myrbetriq 50 mg oral tablet, extended release 1 tablet = 50 mg, By Mouth, Daily, blister pack do not crush or chew, # 90 tablet, 0 Refills, Maintenance, 10/03/23 1:28:00 EST, ER Tablet, [facility]/pharmacy #[id number], Partial fill upon patient request if the prescription is for a schedule II opioid drug., 17... Start Date: 10/03/23 Status: Ordered ondansetron 4 mg oral tablet, disintegrating 1 tablet = 4 mg, By Mouth, Every 8 hours, PRN Nausea & Vomiting, # 9 tablet, 0 Refills, Maintenance, 01/30/24 22:44:00 EDT, Tablet, [facility]/pharmacy #[id number], Partial fill upon patient request if the prescription is for a schedule II opioid drug., 175, cm, 0... Start Date: 01/30/24 Stop Date: 02/02/24 Status: Ordered ondansetron 8 mg oral tablet, disintegrating 1 tablet = 8 mg, By Mouth, 3 times a day, PRN Nausea & Vomiting, # 9 tablet, 0 Refills, Maintenance, 01/14/24 20:00:00 EDT, DIS Tablet, [facility]/pharmacy #[id number], Partial fill upon patient request [...] Weight Start Date: 02/10/24 Status: Ordered Pen [place], 31 G x 5 mm BD Ultra [...] 0 Refills, Maintenance, 10/03/23 1:28:00 EST, Tablet, [facility]/pharmacy #[id number], Partial fill upon patient request if the prescription is for a schedule II opioid drug., 172, cm, 10/02/23 7:02:00... Start Date: 10/03/23 Status: Ordered tamsulosin 0.4 mg oral capsule 0.4 mg, 1, capsule, By Mouth, Daily, blister pack, # 90 capsule, Refills 0, Tot. Refills 0, Maintenance, 10/03/23 1:29:00 EST, Route to Pharmacy Electronically, [facility]/pharmacy #[id number], Partial fill upon patient request [...] 3 Refills, Maintenance, 02/10/24 16:28:00 EDT, Solution, [facility]/pharmacy #[id number], Partial fill upon patient request ifthe prescription [...] Care Team Personnel Name: Nuzhat Sainz Position: [facility] Outreach Member Role: Lifetime Consulting Physician Name: Janel Mead RN Position: [facility] RN Member Role: Primary Care Nurse Name: Maritza CABEZAS, Bailey Goss Position: [facility] Physician - Primary Care Member Role: PCP Address: [facility] [place] [address]- Name: Derik Gaines MD Position: [facility] Renal MD Member Role: Lifetime Consulting Physician Address: Address: [address] [place] [address] [address] [facility] [place] [address]- Name: Kiana Castelan [place] Position: [facility] [place] Member Role: Lifetime Consulting Physician Name: Bayron Brandt DO Position: [facility] Renal MD Member Role: Lifetime Consulting Physician Address: Address: [address] [place] [address] [address] [facility] [place] [address]- Name: Amie Caldwell PharmD Position: [facility] Associate Professional Member Role: Lifetime Consulting Provider Address: Address: [address] [facility] [place] [address]- [place] Name: Eric Garcia RN Position: [facility] RN Member Role: Primary Care Nurse Name: Jaclyn Schulte RN Position: [facility] RN Member Role: Primary Care Nurse Name: Kavon Liu MD Position: Reference Physician Member Role: Lifetime Consulting Physician Address: Address: [address] [place] [address] [address] [facility] [place] [address]- Care Team Related Persons Name: BO PERALES Address: home [address] [place] [address] Name: DANA BALTAZAR Address: home [address] [place] [address] Name: NALDO AVALOS Address: home [address] [place] [address] Name: NALDO BARNARD Address: home [address] [place] [address]
--- OUTSIDE RECORDS SUMMARY | 2024-06-17 06:06 | XMS_ITS | Continuity of Care Document ---
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(Discharge Diagnosis) - 01/23/24 Insulin long-term use(Discharge Diagnosis) - 01/23/24 Abdominal pain in male(Discharge Diagnosis) - 01/23/24 Attending Physician: Bailey Salas MD Allergies, Adverse Reactions, Alerts No Known Allergies Immunizations Given and Recorded Vaccine Date Status Refusal Reason zoster vaccine, inactivated 04/19/23 Recorded tetanus/diphtheria/pertussis, acel(Tdap) 03/28/23 Given pneumococcal 23-valent vaccine 03/28/23 Given pneumococcal 23-valent vaccine 1 05/28/09 Given [id number] 12y+ bivalent booster vax 08/28/22 Recorded influenza [...] inactivated 6 05/28/09 Gi isidra SARS-CoV-2 mRNA (zlxohqp-xwdk-pjpac) vax 10/18/21 Given SARS-CoV-2 (COVID-19) mRNA BNT-162b2 vac 01/01/21 Recorded SARS-CoV-2 (COVID-19) mRNA BNT-162b2 vac 12/10/20 Recorded Influenza Virus Vaccine (oldterm) 06/13/19 Recorde d pneumococcal 13-valent vaccine 10/03/16 Given Fluvirin (oldterm) 05/23/11 Given Tet/diphth/pertussis, acel (oldterm) 05/23/11 Give n FluLaval (oldterm) 7 06/09/10 Given 1Result Comment: [employer] [id number] 27feblo 2Result Comment: [facility]: 71858-879-58 3Admin Note: By Dr Granado 4Admin Note: Dr Granado 5Admin Note: [facility] 6Result Comment: Lot [id number] ([id number]) [id number] 7Admin Note: dr hall Medications Alcohol Pads [...] 7:02:00 E... Start Date: 10/03/23 Status: Ordered amoxicillin-clavulanate 875 mg-125 mg oral tablet 1 tablet, By Mouth, Every 12 hours, for 10 days, # 20 tablet, 0 Refills, Acute 02/09/24 22:44:00 EDT, 01/30/24 22:44:00 EDT, Tablet, [facility]/pharmacy #[id number], Partial fill upon patient request if the prescription is for a schedule II opioid drug., 175, cm,... Start Date: 01/30/24 Stop Date: 02/09/24 Status: Ordered Apnea Rx Apnea Rx, See [...] Refills, Maintenance, 10/03/23 1:25:00 EST, CR Tablet, [facility]/pharmacy #[id number], Partial fill upon patient request if the prescription is fora schedule II opioid drug., 172, cm, 10/02/23 7:02:... Start Date: 10/03/23 Status: Ordered buPROPion 150 mg/24 hours (XL) oral tablet, extended release 1 tablet = 150 mg, By Mouth, Daily in AM, blister pack, # 90 tablet, 0 Refills, Maintenance, 10/03/23 1:26:00 EST, XL Tablet, [facility]/pharmacy #[id number], Partial fill upon patient [...] 10/03/23 1:26:00 EST, Route to Pharmacy Electronically, [facility]/pharmacy #[id number], Partial fill upon patient request if the prescription is for a... Start Date: 10/03/23 Status: Ordered finasteride 5 mg oral tablet 1 tablet = 5 mg, By Mouth, Daily, blister pack, # 90 tablet, 0 Refills, Maintenance, 10/03/23 1:27:00 EST, Tablet, [facility]/pharmacy #[id number], Partial fill upon patient [...] 1:27:00 EST, [id number] Partial fill upon patient request if the prescription is for a schedule I... Start Date: 10/03/23 Status: Ordered metoprolol succinate 200 mg oral capsule, extended release 1 capsule = 200 mg, By Mouth, Daily, blister pack, # 90 capsule, 0 Refills, Maintenance, 10/03/23 1:28:00 EST, ER Capsule, [facility]/pharmacy #[id number], Partial fill upon patient request if the prescription isfor a schedule II opioid drug., 172, cm, 10/02/23 7... Start Date: 10/03/23 Status: Ordered Myrbetriq 50 mg oral tablet, extended release 1 tablet = 50 mg, By Mouth, Daily, blister pack do not crush or chew, # 90 tablet, 0 Refills, Maintenance, 10/03/23 1:28:00 EST, ER Tablet, [facility]/pharmacy #[id number], Partial fill upon patient request if the prescription is for a schedule II opioid drug., 17... Start Date: 10/03/23 Status: Ordered ondansetron 4 mg oral tablet, disintegrating 1 tablet = 4 mg, By Mouth, Every 8 hours, PRN Nausea & Vomiting, # 9 tablet, 0 Refills, Maintenance, 01/30/24 22:44:00 EDT, Tablet, [facility]/pharmacy #[id number], Partial fill upon patient request if the prescription is for a schedule II opioid drug., 175, cm, 0... Start Date: 01/30/24 Stop Date: 02/02/24 Status: Ordered ondansetron 8 mg oral tablet, disintegrating 1 tablet = 8 mg, By Mouth, 3 times a day, PRN Nausea & Vomiting, # 9 tablet, 0 Refills, Maintenance, 01/14/24 20:00:00 EDT, DIS Tablet, [facility]/pharmacy #[id number], Partial fill upon patient [...] 10/03/23 Stop Date: 11/02/23 Status: Ordered Pen [place], 31 G x 5 mm BD Ultra [...] 0 Refills, Maintenance, 10/03/23 1:28:00 EST, Tablet, [facility]/pharmacy #[id number], Partial fill upon patient request if the prescription is for a schedule II opioid drug., 172, cm, 10/02/23 7:02:00... Start Date: 10/03/23 Status: Ordered tamsulosin 0.4 mg oral capsule 0.4 mg, 1, capsule, By Mouth, Daily, blister pack, # 90 capsule, Refills 0, Tot. Refills 0, Maintenance, 10/03/23 1:29:00 EST, Route to Pharmacy Electronically, [facility]/pharmacy #[id number], Partial fill upon patient [...] diabetes mellitus with cardiac complication Discharge Diagnosis 01/23/24 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 Discharge Diagnosis 01/23/24 Insulin long-term use Discharge Diagnosis 01/23/24 Abdominal pain in male Discharge Diagnosis 01/23/24 Vital Signs Most recent to oldest [Reference Range]: 1 Height 175 cm (01/23/24 11:14 AM) Weight 82.2 kg (01/23/24 11:14 AM) Oxygen Saturation [94-100 %] 95 % (01/23/24 11:14 AM) Pulse Rate [55-90 bpm] 75 bpm (01/23/24 11:14 AM) Body Mass Index [18.5-24.99 kg/m2] 26.84 kg/m2 *H* (01/23/24 11:14 AM) Blood Pressure [90-138/55-84 mm Hg] 179/ 107mm Hg *H* (01/23/24 11:14 AM) Blood pressure sites Arm, left (01/23/24 11:14 AM) Weight Obtained Via Standing scale (01/23/24 11:14 AM) Social History Social History Type Response Smoking Status Former smoker, quit more than 30 days ago entered on: 12/29/18 Sex Note * Paul Cabrera: PERFORM Event Display: Patient Education/Instruction Authored Date: [id number] Ambulatory Adult Visit Summary [address] [address] Name: MILAGROS PERALES : 1950?? Visit: 01/23/2024 10:47?? Ambulatory Visit Instructions ?? Your Care Team Primary Care Provider Bailey Salas MD? This Visit Provider Bailey Ingram MD Your Diagnosis Type 2 diabetes mellitus with cardiac complication 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 Insulin long-term use Abdominal pain in male Vitals Signs Pulse Rate: 75 bpm Height: 175 cm Systolic Blood Pressure:??179 mm Hg??High Weight: 82.2 kg Diastolic Blood Pressure:??107 mm Hg??High Body Mass Index:??26.84 kg/m2??High Oxygen Saturation: 95 % Body surface area: 2 What to do next Scheduled Follow-Up Appointments Saturday. 2023 3:00 PM EDT ?? With: Bailey Salas MD Where: [address] [address]- Status: Pending Saturday 3:20 PM EDT ?? With: Maritza CABEZAS, Bailey Goss Where: [address] [address]- Status: Pending Follow-Up Appointments Follow up Appointment - Ordered?-- in 2 weeks, FU abdominal pain, 01/23/24 12:05:00 EDT Future Orders APOE Alzheimer's Risk - Once, *Est. 10/18/23, Future Order?? Medications The list below reflects the information [...] Daily blister pack ?? Unchanged BuPROpion (buPROPion 150 mg/ 24 hours (XL) oral tablet, extended release) 1 tab(s) Oral Daily in the morning blister pack ?? Unchanged cabotegravir-rilpivirine (Cabenuva 600/ 900 intramuscular suspension, extended release) See instructions Unchanged Donepezil (donepezil 10 mg oral tablet) 1 tab(s) Oral Daily at Bedtime blister pack ?? Unchanged Durable Medical Equipment (Alcohol Pads) [...] bedtime ?? Unchanged Durable Medical Equipment (Pen [place], 31 G x 5 mm BD Ultra [...] crush or chew ?? Unchanged Ondansetron (ondansetron 8 mg oral tablet, disintegrating) 1 tab(s) Oral 3 times a day as needed for Nausea & Vomiting Unchanged Pantoprazole (pantoprazole 20 mg oral delayed release tablet) 20 Milligram Oral Daily Duration: 30 Days blister pack ?? Unchanged Rosuvastatin (rosuvastatin 40 mg oral tablet) 1 tab(s) Oral Daily blister pack ?? Unchanged Tamsulosin (tamsulosin 0.4 mg oral capsule) 1 capsule Oral Daily blister pack ?? Test Performed Below is a partial list of the tests performed during your Visit. You may have had other tests and procedures not included in this list. Please discuss all test results with your provider. POC HBA1C ([facility] [place]) Lab Test Results Below is a partial list of the most recent Laboratory test results done during your Visit. You may have had other tests and procedures not included in this list. Please discuss all test results with your provider. Test Name Test Result Date/Time POC HBA1C ([facility] [place]) 6.6 % 01/23/2024 11:21 EDT Medications and Immunizations Administered Medications Given During [...] are strongly encouraged to quit. Please call [employer] [facility] at [phone] or [phone] ([phone]) or log in to [email or web address] for referrals to smoking cessation programs. ?? The National Suicide Prevention Hotline is available 01/04 if you or someone you know needs to find a reason to keep living. By calling 9-581-012-RawData (2344) you'll be connected to a skilled, trained counselor at a crisis center in your area. [facility] [employer] Portal You can view and manage your care through the patient portal or by using a health care ezra of your choosing. [employer] is a website that allows you to securely view your medical information including your hospital discharge summary, office visit summaries, medications and follow-up visits. You can also request appointments, renew medications, and request access to your medical information using a health care ezra of your choosing, or just ask a question. You can enroll at [email or web address] or register during your next office visit. [facility], in keeping with [facility] guidance, no longer requires face masks for [...] care provider, you may find a [facility] provider by calling [facility] at [phone]. Patient Care team information Care Team Personnel Name: Nuzhat Sainz Position: [facility] Outreach Member Role: Lifetime Consulting Physician Name: Janel Mead RN Position: [facility] RN Member Role: Primary Care Nurse Name: Maritza CABEZAS, Bailey Goss Position: [facility] Physician - Primary Care Member Role: PCP Address: Address: [address] [place] [id number]- Name: Derik Gaines MD Position: [facility] Renal MD Member Role: Lifetime Consulting Physician Address: Address: [address] [place], [place] [address] [place] [address]- Name: Kiana Castelan [place] Position: [facility] [place] Member Role: Lifetime Consulting Physician Name: Bayron Brandt DO Position: [facility] Renal MD Member Role: Lifetime Consulting Physician Address: Address: [address] [place], [place] [address] [place] [address]- Name: Amie Caldwell PharmD Position: [facility] Associate Professional Member Role: Lifetime Consulting Provider Address: Address: [address] [facility] [place] [address]- [place] Name: Eric Garcia RN Position: [facility] RN Member Role: Primary Care Nurse Name: Jaclyn Schulte RN Position: [facility] RN Member Role: Primary Care Nurse Name: Kavon Liu MD Position: Reference Physician Member Role: Lifetime Consulting Physician Address: Address: [address] [place] [address] [address] [facility] [place] [address]- Care Team Related Persons Name: BO PERALES Address: home [address] [place] [address] Name: DANA BALTAZAR Address: home [address] [place] [address] Name: NALDO AVALOS Address: [address] [place] [address] Name: NALDO BARNARD Address: home [address] [place] [address]
--- OUTSIDE RECORDS SUMMARY | 2024-06-17 06:06 | XMS_ITS | Continuity of Care Document ---
Author Organization [facility] Address [address] [place] [address]- Care Team Providers Care Press Clipper Name Role Phone Maritza CABEZAS, Bailey Goss Primary Care Physic pierre [facility] - 09/27/[address] [address] Attending Physician: Grabiel Coleman MD Admitting Physician: Grabiel Coleman MD Referring Physician: Grabiel Coleman MD Allergies, Adverse Reactions, Alerts No Known Allergies Immunizations Given and Recorded Vaccine Date Status Refusal Reason tetanus/diphtheria/pertussis, acel(Tdap) 03/28/23 Given pneumococcal 23-valent vaccine 03/28/23 Given pneumococcal 23-valent vaccine 1 05/28/09 Given SARS-CoV-2 mRNA (caraxry-rwvq-hfwtp) vax 10/18/21 Given influenza virus vaccine, inactivated [...] FluLaval (oldterm) 7 06/09/10 Given 1Result Comment: [employer] [id number] 27feblo 2Result Comment: [facility]: 89898-891-48 3Admin Note: By Dr Granado 4Admin Note: Dr Granado 5Admin Note: [facility] 6Result Comment: Lot [id number]) [id number] 7Admin Note: dr hall Medications acetaminophen-HYDROcodone 325 [...] Refills, Maintenance, 04/20/22 13:02:00 EDT, [facility]/pharmacy #[id number], 1 tablet By Mouth Every [...] 1 Refills, Maintenance, 03/09/23 4:33:00 EDT, Tablet, [facility]/pharmacy #[id number], 175, cm, 12/28/22 15:56:00 EDT, [...] each, 8 Refills, Maintenance, 01/12/23 12:47:00 EDT, [facility]/pharmacy #[id number], Partial fill upon patient request if th... Start Date: 01/12/23 Stop Date: 10/09/23 Status: Ordered Pen [place], 31 G x 5 mm BD Ultra [...] 05/10/23 16:18:00 EDT, Route to Pharmacy Electronically, [facility]/pharmacy #[id number], 175, cm, 05/10/23 15:59:00 EDT, Height, 81.65, kg, 06/19/22 9:04:00 EDT, Dry Weight Start Date: 05/10/23 Status: Ordered Testopel = 300 mg, Subcutaneous Infusion, Every 3 months, 0 Refills, Maintenance, 03/26/15 23:08:01 Start Date: 03/26/15 Status: Ordered Tresiba FlexTouch 200 units/mL subcutaneous solution See Instructions, Take 22 units daily at lunch. E11.65, # 9 mL, 10 Refills, Maintenance, 12/31/22 11:09:00 EDT, [facility]/pharmacy #[id number], 175, cm, 12/28/22 15:56:00 EDT, Height, 81.65, kg, 06/19/22 9:04:00EDT, Dry Weight Start Date: 12/31/22 Status: Ordered Trulicity Pen 3 mg/0.5 mL subcutaneous solution 0.5 mL = 3 mg, Subcutaneous Injection, Every week, Take 3mg once weekly. E11.65., # 2 mL, 5 Refills, Maintenance, 10/18/22 16:22:00 EST, Solution, [facility], Partial fill upon patient [...] Care Team Personnel Name: Nuzhat Sainz Position: [facility] Outreach Member Role: Lifetime Consulting Physician Name: Maritza CABEZAS, Bailey Goss Position: [facility] Physician - Primary Care Member Role: PCP Address: Address: [address] [place] [id number] Name: Derik Gaines MD Position: [facility] Renal MD Member Role: Lifetime Consulting Physician Address: Address: [address] [place] [address] [address] [facility] [place] [place] [address]- Name: Kiana Castelan [place] Position: [facility] [place] Member Role: Lifetime Consulting Physician Name: Bayron Brandt DO Position: [facility] Renal MD Member Role: Lifetime Consulting Physician Address: Address: [address] [place] [address] [address] [facility] [place], [place] [address] Name: Amie Caldwell PharmD Position: [facility] Associate Professional Member Role: Lifetime Consulting Provider Address: Address: [address] [place] [address] [place] [address]- [place] Name: Eric Garcia RN Position: S RN Member Role: Primary Care Nurse Name: Jaclyn Schulte RN Position: S RN Member Role: Primary Care Nurse Name: Kavon Liu MD Position: Reference Physician Member Role: Lifetime Consulting Physician Address: Address: [address] [place] [address] [address] [facility] [place] [address]- Care Team Related Persons Name: DANA PERALES Address: home [address] [place] [address] Name: BO PERALES Address: home [address] [address] Name: DANA BALTAZAR Address: home [address] [place] [address] Name: NALDO AVALOS Address: home [address] [place] [address] Name: NALDO BARNARD Address: home [address] [place] [address]
--- OUTSIDE RECORDS SUMMARY | 2024-06-17 06:06 | XMS_ITS | Continuity of Care Document ---
Author Organization [facility] Address [address] [place] [address]- Care Team Providers Care Merchandise Supervisor Name Role Phone Maritza CABEZAS, Bailey Goss Primary Care Physic pierre [facility] - 09/28/23 [facility] [address] [place] [address]- Attending Physician: Grabiel Coleman MD Referring Physician: Maritza CABEZAS, Bailey Goss Allergies, Adverse Reactions, Alerts No Known Allergies Immunizations Given and Recorded Vaccine Date Status Refusal Reason tetanus/diphtheria/pertussis, acel(Tdap) 03/28/23 Given pneumococcal 23-valent vaccine 03/28/23 Given pneumococcal 23-valent vaccine 1 05/28/09 Given SARS-CoV-2 mRNA (ekwzpki-oonj-gbgpf) vax 10/18/21 Given influenza virus vaccine, inactivated [...] FluLaval (oldterm) 7 06/09/10 Given 1Result Comment: [employer] [id number] 27feblo 2Result Comment: [facility]: [id number] 3Admin Note: By Dr Granado 4Admin Note: Dr Granado 5Admin Note: FLU CLINIC 6Result Comment: Lot [id number] 7Admin Note: dr hall Medications acetaminophen-HYDROcodone 325 [...] tablet, 1 Refills, Maintenance, 04/20/22 13:02:00 EDT, [facility]/pharmacy #[id number], 1 tablet By Mouth Every [...] 1 Refills, Maintenance, 03/09/23 4:33:00 EDT, Tablet, [facility]/pharmacy #[id number], 175, cm, 12/28/22 15:56:00 EDT, [...] each, 8 Refills, Maintenance, 01/12/23 12:47:00 EDT, [facility]/pharmacy #[id number], Partial fill upon patient request if th... Start Date: 01/12/23 Stop Date: 10/09/23 Status: Ordered Pen [place], 31 G x 5 mm BD Ultra [...] 05/10/23 16:18:00 EDT, Route to Pharmacy Electronically, [facility]/pharmacy #[id number], 175, cm, 05/10/23 15:59:00 EDT, Height, 81.65, kg, 06/19/22 9:04:00 EDT, Dry Weight Start Date: 05/10/23 Status: Ordered Testopel = 300 mg, Subcutaneous Infusion, Every 3 months, 0 Refills, Maintenance, 03/26/15 23:08:01 Start Date: 03/26/15 Status: Ordered Tresiba FlexTouch 200 units/mL subcutaneous solution See Instructions, Take 22 units daily at lunch. E11.65, # 9 mL, 10 Refills, Maintenance, 12/31/22 11:09:00 EDT, [facility]/pharmacy #[id number], 175, cm, 12/28/22 15:56:00 EDT, Height, 81.65, kg, 06/19/22 9:04:00EDT, Dry Weight Start Date: 12/31/22 Status: Ordered Trulicity Pen 3 mg/0.5 mL subcutaneous solution 0.5 mL = 3 mg, Subcutaneous Injection, Every week, Take 3mg once weekly. E11.65., # 2 mL, 5 Refills, Maintenance, 10/18/22 16:22:00 EST, Solution, [facility], Partial fill upon patient [...] Care Team Personnel Name: Nuzhat Sainz Position: [facility] Outreach Member Role: Lifetime Consulting Physician Name: Maritza CABEZAS, Bailey Goss Position: [facility] Physician - Primary Care Member Role: PCP Address: Address: [address] [place] [address]- Name: Derik Gaines MD Position: [facility] Renal MD Member Role: Lifetime Consulting Physician Address: Address: [address] [place] [address] [address] [facility] [place] [address]- Name: Kiana Castelan MA Position: [facility] H[place]IL[place] CARLOS Member Role: Lifetime Consulting Physician Name: Bayron Brandt DO Position: [facility] Renal Member Role: Lifetime Consulting Physician Address: Address: [address] [place] [address] [address] [facility] [place] [address]- Name: Amie Caldwell PharmD Position: [facility] Associate Professional Member Role: Lifetime Consulting Provider Address: Address: [address] [place] [address] [place] [address]- [place] Name: Eric Garcia RN Position: [facility] RN Member Role: Primary Care Nurse Name: Jaclyn Schulte RN Position: [facility] RN Member Role: Primary Care Nurse Name: Kavon Liu MD Position: Reference Physician Member Role: Lifetime Consulting Physician Address: Address: [address] [place] [address] [address] [facility] [place] [address]- Care Team Related Persons Name: DANA PERALES Address: home [address] [place] [address] Name: BO PERALES Address: home [address] [place] [address] Name: DANA BALTAZAR Address: home [address] [place] [address] Name: NALDO AVALOS Address: home [address] [place] [address] Name: NALDO BARNARD Address: home [address] [place] [address]
--- OUTSIDE RECORDS SUMMARY | 2024-06-17 06:06 | XMS_ITS | Continuity of Care Document ---
Author Organization [facility] Sigifredo ayush Address [address] [place] [address]- Care Team Providers Care Salesperson Recreational Vehicles Name Role Phone Maritza CABEZAS, Bailey Goss Primary Care Physic pierre [facility] - 12/10/21 [facility] [address] [place] [address] Attending Physician: AdmtrMarie Admitting Physician: Admtr, Ar8 Referring Physician: Admtr, Ar8 Allergies, Adverse Reactions, Alerts No Known Allergies Immunizations Given and Recorded Vaccine Date Status Refusal Reason SARS-CoV-2 mRNA (iuothra-zskt-saqxt) vax 10/18/21 Given influenza virus vaccine, inactivated [...] 1Result Comment: [facility]: [id number] 2Admin Note: By Dr Granado 3Admin Note: Dr Granado 4Admin Note: FLU CLINIC 5Result Comment: Lot [id number]) [id number] 6Admin Note: dr hall 7Result Comment: [employer] [id number] L287x 27feblo Medications abacavir 300 mg oral [...] tablet, 0 Refills, Maintenance, 11/10/21 15:20:00 EST, [facility]/pharmacy #[id number], 1 tablet By Mouth Every 24 hours, 175, cm, 10/27/21 13:06:00 EST, Height, 78.5, kg,10/10/21 0:43:00 EST, Dry Weight Start Date: 11/10/21 Status: Ordered Crestor 40 mg oral tablet 1 tablet = 40 mg, By Mouth, Daily, for 90 days, # 90 tablet, 3 Refills, Hard Stop 11/05/22 10:20:00EST, 11/10/21 10:20:00 EST, Tablet, [facility]/pharmacy #[id number], 175, cm, 10/27/21 13:06:00 [...] 0 Refills, Maintenance, 11/10/21 15:20:00 EST, Tablet, [facility]/pharmacy #0693, Partial fill upon patient request if the prescription is for a schedule II opioid drug., 175, cm, 10/27/21 13:06:00 EST, Height... Start Date: 11/10/21 Status: Ordered metoprolol 50 mg oral tablet 50 mg, 1, tablet, By Mouth, 2 times a day, # 60 tablet, Refills 0, Tot. Refills 0, Maintenance, 11/10/21 15:20:00 EST, [facility]ically, [facility] 3 each, 5 Refills,Maintenance, 10/19/21 12:47:00 EST, [facility] P... Start Date: 10/19/21 Stop Date: 04/17/22 Status: Ordered Pen [place], 31 G x 5 mm BD Ultra [...] Replace Required Details, Route to Pharmacy Electronically, [facility]/pharmacy #[id number], 175, cm, 10/27/21 13:06:00 EST... Start Date: 11/10/21 Stop Date: 12/10/21 Status: Ordered Testopel = 300 mg, Subcutaneous Infusion, Every 3 months, 0 Refills, Maintenance, 03/26/15 23:08:01 Start Date: 03/26/15 Status: Ordered Tresiba FlexTouch 200 units/mL subcutaneous solution See Instructions, Take 28 units daily at lunch. E11.65, # 18 mL, 10 Refills, Maintenance, 03/31/21 10:22:00 EDT, [facility]/pharmacy #[id number], 170, cm, 03/20/21 9:07:00 EDT, Height, 92, kg, 09/14/19 14:18:00 EST, Dry Weight Start Date: 03/31/21 Status: Ordered Trulicity Pen 3 mg/0.5 mL subcutaneous solution 0.5 mL = 3 mg, Subcutaneous Injection, Every week, Take 3mg once weekly. E11.65., # 2 mL, 5 Refills, Maintenance, 10/26/21 16:50:00 EST, Solution, [facility]/pharmacy #[id number], Partial fill upon patient request if the prescription is for a schedule II opioid drAlysha. Start Date: 10/26/21 Status: Ordered Problem List [...]
--- OUTSIDE RECORDS SUMMARY | 2024-06-17 06:06 | XMS_ITS | Continuity of Care Document ---
Author Organization [facility] Address [address] [place] [address]- Care Team Providers Care Supervisor Metal Furniture Fabrication Name Role Phone Julito Don MD Primary Care Physician [facility] 08[facility] - 08/27/[address] [address]- [facility] Attending Physician: Bayron Brandt DO Allergies, Adverse Reactions, Alerts Substance Reaction [...] 3Admin Note: [facility] 4Result Comment: Lot [id number] (E) [id number] 5Admin Note: dr hall 6Result Comment: [employer] [id number] L287x 27feblo Medications amlodipine 10 mg oral tablet 10 mg, 1, tablet, By Mouth, Daily, pharmacy wants 90 days, # 90 tablet, Refills 1, Tot. Refills 1, Maintenance, 07/10/16 21:05:57, Route to Pharmacy Electronically, [id number], [facility]/pharmacy #[id number] Start Date: 07/10/16 Stop Date: 01/06/17 Status: Ordered aspirin 81 mg oral enteric coated tablet 1 tablet = 81 mg, By Mouth, Daily, # 30 tablet, 3 Refills, Maintenance Start Date: 05/27/09 Status: Ordered BD UF RADHA PEN NEEDLE [id number] See Instructions, # 120 Unknown, Refills 5 Tot. Refills 5, USE DAILY, [facility]/pharmacy #[id number] Start Date: 07/10/19 Status: Ordered buPROPion 150 mg/24 hours (XL) oral tablet, extended release 1 tablet = 150 mg, By Mouth, Every 24 hours, # 90 tablet, 1 Refills, Maintenance, 08/26/19 9:56:00 EST, ER Tablet, [facility]/pharmacy #[id number], 1 tablet By Mouth Every [...] 14:44:17 EDT Start Date: 05/27/18 Status: Ordered FREESTYLE LITE TEST STRIP See Instructions, # 200 Unknown, Refills 5 Tot. Refills 5, CHECK BLOOD SUGARS 3 TIMES A DAY, [facility]/pharmacy #[id number] Start Date: 03/10/19 Status: [...] Maintenance, 07/07/18 11:08:24 EDT,Route to Pharmacy Electronically, [id number], [facility]/pharmacy #[id number] Start Date: 07/07/18 Status: [...] 12:25:00, Compound Start Date: 08/12/17 Status: Ordered One Touch Ultra Test Strips See Instructions, # 200 each, Refills 5, Tot. Refills 5, Maintenance, CHECK BLOOD SUGARS TID E11.9 DM TYPE 2, 10/21/18 13:50:28 EST, Compound Start Date: 10/21/18 Status: Ordered One Touch UltraSmart Glucose Meter See Instructions, # 1 each, Refills 0, Tot. Refills 0, Maintenance, CHECK BLOOD SUGARS QID DM TYPE 2 E11.9, 07/30/17 15:38:58, Compound Start Date: 07/30/17 Status: Ordered tamsulosin 0.4 mg oral capsule [...] FlexTouch 200 units/mL subcutaneous solution See Instructions, Inject SQ 102 units once daily for DM2 E11.9 Patient needs 90 day supply, # 18 each, 0 Refills, Maintenance, 07/16/19 9:14:25 EST, D/C RX ON FILE FOR 30 DAY SUPPLY Start Date: 07/16/19 Status: Ordered Triumeq oral tablet 1 tablet, By Mouth, Daily, # 30 tablet, 0 Refills, Maintenance, 03/26/15 23:03:11, Tablet Start Date: 03/26/15 Status: Ordered Trulicity Pen 0.75 mg/0.5 mL subcutaneous solution See Instructions, # 2 Unknown, Refills 5 Tot. Refills 5, INJECT 1 PEN SUBCUTANEOUSLY EVERY WEEK, [id number] Start Date: 04/06/19 Status: Ordered Problem List Condition Effective Dates [...]
--- OUTSIDE RECORDS SUMMARY | 2024-06-17 06:06 | XMS_ITS | Continuity of Care Document ---
Author Organization [facility] Address [address] [place] [address]- Care Team Providers Care Main Line Station Engineer Name Role Phone Maritza CABEZAS, Bailey Goss Primary Care Physic pierre [facility]): 05[facility]21 - 06/01/21 [facility] [address] [place] [address]- Attending Physician: Admjerica, Marie Admitting Physician: Admtr, Marie Referring Physician: Admtr, [...] 3Admin Note: [facility] 4Result Comment: Lot [id number] (E) [id number] 5Admin Note: dr hall 6Result Comment: [employer] [id number] L287x 27feblo Medications amlodipine 10 mg oral tablet 10 mg, 1, tablet, By Mouth, Daily, pharmacy wants 90 days, # 90 tablet, Refills 1, Tot. Refills 1, Maintenance, 07/10/16 21:05:57, Route to Pharmacy Electronically, [id number], [facility]/pharmacy #[id number] Start Date: 07/10/16 Stop Date: 01/06/17 Status: Ordered aspirin 81 mg oral enteric coated tablet 1 tablet = 81 mg, By Mouth, Daily, # 30 tablet, 3 Refills, Maintenance Start Date: 05/27/09 Status: Ordered BD UF RADHA PEN NEEDLE [id number] See Instructions, # 120 Unknown, Refills 5 Tot. Refills 5, USE DAILY, [facility]/pharmacy #[id number] Start Date: 07/10/19 Status: [...] tablet, 1 Refills, Maintenance, 04/13/21 15:06:00 EDT, [facility]/pharmacy #0693, 90, 1 tablet By Mouth Every 24 hours, 170, cm, 03/20/21 9:07:00 EDT, Height, 92, kg, 09/14/19 14:18:00 EST, Dry Weight Start Date: 04/13/21 Status: Ordered Crestor 40 mg oral tablet 1 tablet = 40 mg, By Mouth, Daily, # 90 tablet, 3 Refills, Maintenance, 08/30/20 8:19:00 EST, Tablet, [facility]/pharmacy #0693, 170, cm, 03/29/20 10:57:00 EDT, [...] CHECK BLOOD SUGARS 3 TIMES A DAY, [facility]/pharmacy #0693 Start Date: 03/10/19 Status: [...] Maintenance, 07/07/18 11:08:24 EDT,Route to Pharmacy Electronically, [id number], [facility]/pharmacy #0693 Start Date: 07/07/18 Status: [...] Replace Required Details, Route to Pharmacy Electronically, [facility]/pharmacy #0693, 170, cm, 02/23/21 11:12:00 EDT... Start Date: 03/08/21 Status: Ordered Testopel = 300 mg, Subcutaneous Infusion, Every 3 months, 0 Refills, Maintenance, 03/26/15 23:08:01 Start Date: 03/26/15 Status: Ordered Tresiba FlexTouch 200 units/mL subcutaneous solution See Instructions, Take 110 units daily in the evening. E11.65, # 18 mL, 10 Refills, Maintenance, 03/31/21 10:22:00 EDT, [facility]/pharmacy #0693, 170, cm, 03/20/21 9:07:00 EDT, Height, 92, kg, 09/14/19 14:18:00 EST, Dry Weight Start Date: 03/31/21 Status: Ordered Triumeq oral tablet 1 tablet, By Mouth, Daily, # 90 tablet, 0 Refills, Maintenance, 02/02/21 18:11:00 EDT, [facility]/pharmacy#0693, 1 tablet By Mouth Daily, 170, cm, 01/11/21 9:05:00 EDT, Height, 92, kg, 09/14/19 14:18:00 EST, Dry Weight Start Date: 02/02/21 Status: Ordered Trulicity Pen 3 mg/0.5 mL subcutaneous solution 0.5 mL = 3 mg, Subcutaneous Injection, Every week, Take 3mg once weekly. E11.65., # 2 mL, 5 Refills, Maintenance, 04/05/21 12:10:00 EDT, Solution, [facility]/pharmacy #0693, Partial fill upon patient [...]
--- OUTSIDE RECORDS SUMMARY | 2024-06-17 06:06 | XMS_ITS | Continuity of Care Document ---
Author Organization [facility] Address [address] [place] [address]- Care Team Providers Care Slot Ambassador Name Role Phone Bailey Salas MD Primary Care Physic pierre [facility] 05[facility]10[facility]23 - 05/17/23 [facility] [address] [place] [address]- [place] Encounter Diagnosis Hypertension(Discharge Diagnosis) - 05/10/23 Attending Physician: Bailey Salas MD Allergies, Adverse Reactions, Alerts No Known Allergies Immunizations Given and Recorded Vaccine Date Status Refusal Reason tetanus/diphtheria/pertussis, acel(Tdap) 03/28/23 Given pneumococcal 23-valent vaccine 03/28/23 Given pneumococcal 23-valent vaccine 1 05/28/09 Given SARS-CoV-2 mRNA (fdekwva-yhbc-iyzdv) vax 10/18/21 Given influenza virus vaccine, inactivated [...] FluLaval (oldterm) 7 06/09/10 Given 1Result Comment: [employer] [id number] L287x 27feblo 2Result Comment: [facility]: [id number] 3Admin Note: By Dr Granado 4Admin Note: Dr Granado 5Admin Note: FLU CLINIC 6Result Comment: Lot [id number] (E) [id number] 7Admin Note: dr hall Medications amLODIPine 5 mg oral tablet 5 mg, 1, tablet, By Mouth, Daily, New dose, # 90 tablet, Refills 3, Tot. Refills 3, Maintenance, 05/10/23 16:19:00 EDT, Route to Pharmacy Electronically, [facility]/pharmacy #[id number], Partial fill upon patientrequest if the prescription is for a schedule II op... Start Date: 05/10/23 Status: Ordered Aricept 10 mg oral tablet 10 mg, 1, tablet, By Mouth, Daily at bedtime, New dose, # 90 tablet, Refills 3, Tot. Refills 3, Maintenance, 12/28/22 16:42:00 EDT, Route to Pharmacy Electronically, [facility]/pharmacy #[id number], Partial fill upon patient request if the prescription is for a sc... Start Date: 12/28/22 Status: Ordered aspirin 81 mg oral delayed release tablet = 81 mg, By Mouth, Daily, # 30 tablet, 0 Refills, Maintenance, 11/10/21 15:20:00 EST, EC Tablet, [facility]/pharmacy #0693, Partial fill [...] tablet, 1 Refills, Maintenance, 04/20/22 13:02:00 EDT, [facility]/pharmacy #0693, 1 tablet By Mouth Every 24 [...] 1 Refills, Maintenance, 03/09/23 4:33:00 EDT, Tablet, [facility]/pharmacy #0693, 175, cm, 12/28/22 15:56:00 EDT, Height, [...] each, 8 Refills, Maintenance, 01/12/23 12:47:00 EDT, [facility]/pharmacy #0693, Partial fill upon patient request if th... Start Date: 01/12/23 Stop Date: 10/09/23 Status: Ordered Pen [place], 31 G x 5 mm BD [...] 05/10/23 16:18:00 EDT, Route to Pharmacy Electronically, [facility]/pharmacy #0693, 175, cm, 05/10/23 15:59:00 EDT, Height, 81.65, kg, 06/19/22 9:04:00 EDT, Dry Weight Start Date: 05/10/23 Status: Ordered Testopel = 300 mg, Subcutaneous Infusion, Every 3 months, 0 Refills, Maintenance, 03/26/15 23:08:01 Start Date: 03/26/15 Status: Ordered Tresiba FlexTouch 200 units/mL subcutaneous solution See Instructions, Take 22 units daily at lunch. E11.65, # 9 mL, 10 Refills, Maintenance, 12/31/22 11:09:00 EDT, [facility]/pharmacy #0693, 175, cm, 12/28/22 15:56:00 EDT, Height, 81.65, kg, 06/19/22 9:04:00EDT, Dry Weight Start Date: 12/31/22 Status: Ordered Trulicity Pen 3 mg/0.5 mL subcutaneous solution 0.5 mL = 3 mg, Subcutaneous Injection, Every week, Take 3mg once weekly. E11.65., # 2 mL, 5 Refills, Maintenance, 10/18/22 16:22:00 EST, Solution, [facility], Partial fill upon patient [...] Dates Health Status Cl inical Service Informant Hypertension Discharge Diagnosis 05/10/23 Vital Signs Most recent to oldest [Reference Range]: 1 2 Height 175 cm (05/10/23 3:59 PM) 175 cm (05/10/23 3:46 PM) Oxygen Saturation [94-100 %] 97 % (05/10/23 3:46 PM) Pulse Rate [55-90 bpm] 77 bpm (05/10/23 3:46 PM) Blood Pressure [90-138/55-84 mm Hg] 149/ 86mm Hg *H* (05/10/23 3:59 PM) 146/90mm Hg *H* (05/10/23 3:46 PM) Mode of Delivery (Oxygen) Room air (05/10/23 3:46 PM) Blood pressure sites Arm, right (05/10/23 3:59 PM) Arm, right (05/10/23 3:46 PM) Social History Social History Type Response Smoking Status Former smoker, quit more than 30 days ago entered on: 12/29/18 Sex Note * ProHiwot worthydith: PERFORM, SIGN, VERIFY Event Display: Patient Education/Instruction Authored Date: [facility] *[facility] Clinical Summary Name MILAGROS PERALES Age 72 Years 1950 PCP Maritza CABEZAS, Bailey Goss PCP Visit Date 05/10/2023 15:20:00 Additional Instructions: Scheduled Appointments?? Future Appointments ?No Future Appointments Scheduled Follow-Up Instructions ?? Diagnosis Essential (primary) hypertension Medications: Please continue your medications until treatment is completed or stopped by your provider. Discuss any questions related to medications with your provider. New Medications [id number], [address] [place] [id number], [phone] Tamsulosin (tamsulosin 0.4 mg oral capsule) 1 capsule Oral Daily. Refills: 3. Next Dose: Medications to Continue Taking That Have Changed [facility], [address] [place] [id number], [phone] - Amlodipine (amLODIPine 5 mg oral tablet) 1 tab(s) Oral Daily. New dose. Refills: 3. Next Dose: Medications [...] use as directed for Type 2 Diabetes VdcreqebD80.65. Refills: 0. Next Dose: Durable Medical Equipment (Pen [place], 31 G x 5 mm BD [...] tab(s) Oral Daily. Refills: 1. Next Dose: Testosterone (Testopel) 300 Milligram Subcutaneous Infusion Every 3 months. Next Dose: Allergy Info:?? NKA Medications Given This Visit Future Orders ?No future orders Vital Signs Height 175 cm Weight BMI Blood Pressure 149 mm Hg/86 mm Hg Temperature Pulse Rate 77 bpm Respiratory Rate 02 Sat Mode of Delivery 97 %/Room air You can now view a summary of your hospital visit from the comfort of your home through a free online portal called Highlight. Highlight is a website that allows you to securely view your medical information including discharge summary, medications and follow-up visits. ??You can alsosend a secure electronic message to your doctor???s office to request appointments, renew medications or just ask a question. You can enroll at [email or web address] or register during your next office [...] care provider, you may find a [facility] provider by calling [employer] Link at [phone]. [facility], in keeping with [facility] guidance, no longer requires face masks for staff, patientsor visitors in most situations. Similar to time spent indoors at other locations, there is the chance that you were exposed to respiratory viruses during your time with us (such as flu or COVID-19).? If you develop symptoms concerning for a viral respiratory infection, please seek testing (and treatment if indicated) from your medical provider or home test kit. For information about the plan of care [...] Care Team Personnel Name: Nuzhat Sainz Position: [facility] Outreach Member Role: Lifetime Consulting Physician Name: Maritza CABEZAS, Bailey Goss Position: [facility] Physician - Primary Care Member Role: PCP Address: Address: [address] [place] [address]- Name: Derik Gaines MD Position: [facility] Renal MD Member Role: Lifetime Consulting Physician Address: Address: [address] [place], [place] [address] [place] [address]- Name: Jazmin Florez RN Position: [facility] NORA Supv Member Role: Primary Care Nurse Name: Kiana Castelan MA Position: [facility] [place] CARLOS Member Role: Lifetime Consulting Physician Name: Bayron Brandt DO Position: [facility] Renal MD Member Role: Lifetime Consulting Physician Address: Address: [address] [place], [place] [address] [facility] [place] [address]- Name: Amie Caldwell PharmD Position: [facility] Associate Professional Member Role: Lifetime Consulting Provider Address: Address: [address] [place] [address]- [place] Name: Eric Garcia RN Position: [facility] RN Member Role: Primary Care Nurse Name: Jaclyn Schulte RN Position: [facility] RN Member Role: Primary Care Nurse Name: Kavon Liu MD Position: Reference Physician Member Role: Lifetime Consulting Physician Address: Address: [address] [place] [address] [address] [facility] [place] [address]- Care Team Related Persons Name: DANA PERALES Address: home [address] [place] [address] Name: BO PERALES Address: home [address] [place] [address] Name: DANA BALTAZAR Address: home [address] [place] [address] Name: NALDO AVALOS Address: home [address] [place] [address] Name: NALDO BARNARD Address: home [address] [place] [address]
--- OUTSIDE RECORDS SUMMARY | 2024-06-17 06:06 | XMS_ITS | Continuity of Care Document ---
Author Organization [facility] Address [address] [place] [address]- Care Team Providers Care Special Education Teaching Assistant Name Role Phone Maritza CABEZAS, Bailey Goss Primary Care Physic pierre [facility]): [facility] - 03/04/22 [facility] [address] [place] [id number] Attending Physician: AdmMarie pizano Admitting Physician: Admtr, Marie Referring Physician: Admtr, Ar8 Allergies, Adverse Reactions, Alerts No Known Allergies Immunizations Given and Recorded Vaccine Date Status Refusal Reason SARS-CoV-2 mRNA (hjxacic-reay-mlzdw) vax 10/18/21 Given influenza virus vaccine, inactivated [...] 7 05/28/09 Given 1Result Comment: [facility]: [id number] 2Admin Note: By Dr Granado 3Admin Note: Dr Granado 4Admin Note: [facility] 5Result Comment: Lot [id number] 6Admin Note: dr hall 7Result Comment: [employer] [id number] [id number] 27feblo Medications abacavir 300 mg oral [...] tablet, 0 Refills, Maintenance, 12/20/21 15:57:00 EDT, [facility]/pharmacy #[id number], 1 tablet By Mouth Every 24 hours,x90 days, 175, cm, 12/06/21 8:15:00 EDT, Height, 78.5, kg, 10/10/21 0:43:00 EST, Dry Weight Start Date: 12/20/21 Stop Date: 03/20/22 Status: Ordered Crestor 40 mg oral tablet 1 tablet = 40 mg, By Mouth, Daily, for 90 days, # 90 tablet, 3 Refills, Hard Stop 11/05/22 10:20:00EST, 11/10/21 10:20:00 EST, Tablet, [facility]/pharmacy #[id number], 175, cm, 10/27/21 13:06:00 EST, [...] 0 Refills, Maintenance, 11/10/21 15:20:00 EST, Tablet, [facility]/pharmacy #[id number], Partial fill upon patient request if the prescription is for a schedule II opioid drug., 175, cm, 10/27/21 13:06:00 EST, Height... Start Date: 11/10/21 Status: Ordered metoprolol 50 mg oral tablet 50 mg, 1, tablet, By Mouth, 2 times a day, # 180 tablet, Refills 0, Tot. Refills 0, Maintenance, 12/20/21 15:57:00 EDT, Route to Pharmacy Electronically, [facility]/pharmacy #0693, Partial fill upon patientrequest if the [...] Refills, Maintenance, 04/17/22 12:47:00 EDT, [facility]/pharmacy #0693, Partial fill upon patient request if the prescription is for... Start Date: 04/17/22 Stop Date: 01/12/23 Status: Ordered Pen [place], 31 G x 5 mm BD Ultra [...] Details, Route to Pharmacy Electronically, [facility]/pharmacy #[id number], 175, cm, 12/06/21 8:15:00 EDT,... Start Date: 12/20/21 Status: Ordered Testopel = 300 mg, Subcutaneous Infusion, Every 3 months, 0 Refills, Maintenance, 03/26/15 23:08:01 Start Date: 03/26/15 Status: Ordered Tresiba FlexTouch 200 units/mL subcutaneous solution See Instructions, Take 28 units daily at lunch. E11.65, # 18 mL, 10 Refills, Maintenance, 03/31/21 10:22:00 EDT, [facility]/pharmacy #[id number], 170, cm, 03/20/21 9:07:00 EDT, Height, 92, kg, 09/14/19 14:18:00 EST, Dry Weight Start Date: 03/31/21 Status: Ordered Trulicity Pen 3 mg/0.5 mL subcutaneous solution 0.5 mL = 3 mg, Subcutaneous Injection, Every week, Take 3mg once weekly. E11.65., # 2 mL, 5 Refills, Maintenance, 02/02/22 10:33:00 EDT, Solution, [facility]/pharmacy #0693, Partial fill upon patient request [...]
--- OUTSIDE RECORDS SUMMARY | 2024-06-17 06:06 | XMS_ITS | Continuity of Care Document ---
Author Organization [facility] ter Address [address] [place] [address]- Care Team Providers Care Forms Builder Name Role Phone Maritza CABEZAS, Bailey Goss Primary Care Physic pierre [facility]): 01[facility]14[facility]24 - 01/14/[address] [address]- Discharge Disposition: A-D/C Home Attending Physician: Luigi Holcomb MD Admitting Physician: Luigi Holcomb MD Referring Physician: Not on Staff, Referring MD Allergies, Adverse Reactions, Alerts No Known Allergies Immunizations Given and Recorded Vaccine Date Status Refusal Reason zoster vaccine, inactivated 04/19/23 Recorded tetanus/diphtheria/pertussis, acel(Tdap) 03/28/23 Given pneumococcal 23-valent vaccine 03/28/23 Given pneumococcal 23-valent vaccine 1 05/28/09 Given [id number]-[id number] 12y+ bivalent booster vax 08/28/22 Recorded influenza [...] inactivated 6 05/28/09 Gi isidra SARS-CoV-2 mRNA (kzsbwew-ytge-foojq) vax 10/18/21 Given SARS-CoV-2 (COVID-19) mRNA BNT-162b2 vac 01/01/21 Recorded SARS-CoV-2 (COVID-19) mRNA BNT-162b2 vac 4/3/21 Recorded Influenza Virus Vaccine (oldterm) 06/13/19 Recorde d pneumococcal 13-valent vaccine 10/03/16 Given Fluvirin (oldterm) 05/23/11 Given Tet/diphth/pertussis, acel (oldterm) 05/23/11 Give n FluLaval (oldterm) 7 06/09/10 Given 1Result Comment: [employer] [id number] 27feblo 2Result Comment: [facility]: 09238-389-95 3Admin Note: By Dr Granado 4Admin Note: Dr Granado 5Admin Note: [facility] 6Result Comment: Lot [id number] (E) [id number] 7Admin Note: dr hall Medications Alcohol Pads [...] Refills, Maintenance, 10/03/23 1:26:00 EST, XL Tablet, [facility]/pharmacy #[id number], Partial fill [...] 10/03/23 1:26:00 EST, Route to Pharmacy Electronically, [facility]/pharmacy #0693, Partial fill upon patient request if the prescription is for a... Start Date: 10/03/23 Status: Ordered finasteride 5 mg oral tablet 1 tablet = 5 mg, By Mouth, Daily, blister pack, # 90 tablet, 0 Refills, Maintenance, 10/03/23 1:27:00 EST, Tablet, [facility]/pharmacy #0693, Partial [...] 10/03/23 1:27:00 EST, Route to Pharmacy Electronically, [facility]/pharmacy #[id number], Partial fill upon patient request if the prescription is for a schedule I... Start Date: 10/03/23 Status: Ordered metoprolol succinate 200 mg oral capsule, extended release 1 capsule = 200 mg, By Mouth, Daily, blister pack, # 90 capsule, 0 Refills, Maintenance, 10/03/23 1:28:00 EST, ER Capsule, [facility]/pharmacy #0693, Partial fill upon patient request if the prescription isfor a schedule II opioid drug., 172, cm, 10/02/23 7... Start Date: 10/03/23 Status: Ordered Myrbetriq 50 mg oral tablet, extended release 1 tablet = 50 mg, By Mouth, Daily, blister pack do not crush or chew, # 90 tablet, 0 Refills, Maintenance, 10/03/23 1:28:00 EST, ER Tablet, [facility]/pharmacy #0693, Partial fill upon patient request if the prescription is for a schedule II opioid drug., 17... Start Date: 10/03/23 Status: Ordered ondansetron 8 mg oral tablet, disintegrating 1 tablet = 8 mg, By Mouth, 3 times a day, PRN Nausea & Vomiting, # 9 tablet, 0 Refills, Maintenance, 01/14/24 20:00:00 EDT, DIS Tablet, [facility]/pharmacy #0693, Partial fill [...] 10/03/23 Stop Date: 11/02/23 Status: Ordered Pen [place], 31 G x 5 mm BD Ultra [...] 0 Refills, Maintenance, 10/03/23 1:28:00 EST, Tablet, [facility]/pharmacy #0693, Partial fill upon patient request if the prescription is for a schedule II opioid drug., 172, cm, 10/02/23 7:02:00... Start Date: 10/03/23 Status: Ordered tamsulosin 0.4 mg oral capsule 0.4 mg, 1, capsule, By Mouth, Daily, blister pack, # 90 capsule, Refills 0, Tot. Refills 0, Maintenance, 10/03/23 1:29:00 EST, Route to Pharmacy Electronically, [facility]/pharmacy [...] 0 Refills, Maintenance, 10/03/23 1:27:00 EST, Solution, [facility]/pharmacy #[id number], Partial fill upon [...] Exam Date Time Procedure Performing Provider Status 01/14/24 4:46 PM Chest 2 Views Frontal and Lat Neftali Madden; Auth (Verified) Notes: (Chest 2 Views Frontal and Lat) Reason For Exam: Shortness of Breath, Fever;Other: RESULT: Chest 2 Views Frontal and Lat Chest 2 Views Frontal and Lat Hx of Present Illness: pt presenting with midepigastric abd pain, n v starting approx 2 days ago. states he is unable to tolerate PO intake except for small sips of liquid.; Reason: Shortness of Breath, Fever; Clinical Question(s): Pneumonia COMPARISON: Multiple priors, most recent 10/12/2023. FINDINGS: LINES AND TUBES: None. LUNGS AND PLEURA: Clear lungs. Normal pulmonary vascularity. No pleural effusion. No pneumothorax. HEART, MEDIASTINUM AND IRIS: Heart is normal in size. Normal mediastinal and hilar contour. BONES AND SOFT TISSUES: No acute abnormality. Sternotomy wires appear intact. IMPRESSION: No acute abnormality. I have personally reviewed the images and I agree with this report. WSN: [id number] Ordering Physician: Luigi Holcomb Dictated By: Keisha Moody DO Dictated Date/Time: 01/14/24 5:02 pm Reviewed By: Hayder Larsen MD Signed By: Hayder Larsen MD Signed Date/Time: 01/14/24 5:07 pm Transcribed By: ALEXUS Transcribed Date/Time: 01/14/24 4:48 pm Vital Signs Most recent to oldest [Reference Range]: 1 2 Height 173 cm (01/14/24 5:27 PM) 173 cm (01/14/24 3:24 PM) Weight 82 kg (01/14/24: PM) 82 kg (01/14/24:24 PM) Oxygen Saturation [94-100 %] 99 % (01/14/24: PM) 98 % (01/14/24:24 PM) Pulse Rate [55-90 bpm] 65 bpm (01/14/24: PM) 76 bpm (01/14/24:24 PM) Body Mass Index [18.5-24.99 kg/m2] 27.4 kg/m2 *H* (01/14/24: PM) 27.4 kg/m2 *H* (01/14/24:24 PM) Blood Pressure [90-138/55-84 mm Hg] 155/ 82mm Hg *H* (01/14/24: PM) 149/97mm Hg *H* (01/14/24:24 PM) Respiratory Rate [16-30 br/min] 18 br/mi n (01/14/24: PM) 18 br/min (01/14/24:24 PM) Temperature [96.8-100.4 DegF] 98.7 DegF (01/14/24: PM) 97.8 DegF (01/14/24:24 PM) Mode of Delivery (Oxygen) Room air (01/14/24 5:27 PM) Room air (01/14/24 3:24 PM) Blood pressure sites Arm, right (01/14/24: PM) Arm, right (01/14/24:24 PM) Temperature Route Oral (01/14/24:27 PM) Oral (01/14/24 3:24 PM) Dry Weight 82 kg (01/14/24 5:27 PM) 82 kg (01/14/24 3:24 PM) Weight Obtained Via Patient/family state d (01/14/24 3:24 PM) Dry Weight Obtained Via Patient/family s tated (01/14/24 3:24 PM) Social History Social History Type Response Smoking Status Former smoker, quit more than 30 days ago entered on: 12/29/18 Sex EKG study * Event Display: ECG 12-Lead Authored Date: Please click on pdf link to open report * Event Display: ECG 12-Lead Authored Date: Ventricular Rate: 63 BPM Atrial Rate: 63 BPM P-R Interval: 152 ms QRS Duration: 98 ms Q-T Interval: 424 ms QTC Calculation(Bazett): 433 ms P [place]: 50 degrees R [place]: -68 degrees T [place]: 119 degrees Normal sinus rhythm with sinus arrhythmia Left axis deviation Incomplete right bundle branch block ST and T wave abnormality, consider lateral ischemia Abnormal ECG When compared with ECG of 29-SEP-2023 23:21, Fusion complexes are no longer Present Premature ventricular complexes are no longer Present Vent. rate has decreased BY 50 BPM T wave inversion now evident in Lateral leads Confirmed by Domenico Sol ([id number]) on 01/14/2024 4:19:49 PM [place]: Domenico Sol Patient Care team information Care Team Personnel Name: Nuzhat Sainz Position: [facility] Outreach Member Role: Lifetime Consulting Physician Name: Janel Mead RN Position: [facility] RN Member Role: Primary Care Nurse Name: Bailey Salas MD Position: [facility] Physician - Primary Care Member Role: PCP Address: Address: [address] [place] [address]- Name: Derik Gaines MD Position: [facility] Renal MD Member Role: Lifetime Consulting Physician Address: Address: [address] [place] [address] [address] [facility] [place] [address]- Name: Kiana Castelan [place] Position: [facility] [place] [facility] Member Role: Lifetime Consulting Physician Name: Bayron Brandt DO Position: [facility] Renal MD Member Role: Lifetime Consulting Physician Address: Address: [address] [place] [address] [address] [facility] [place] [address]- Name: Amie Caldwell PharmD Position: [facility] Associate Professional Member Role: Lifetime Consulting Provider Address: Address: [address] [facility] [place] [address]- Name: Eric Garcia RN Position: [facility] RN Member Role: Primary Care Nurse Name: Jaclyn Schulte RN Position: [facility] RN Member Role: Primary Care Nurse Name: Kavon Liu MD Position: Reference Physician Member Role: Lifetime Consulting Physician Address: Address: [address] [place] [address] [address] [facility] [place] [address]- Care Team Related Persons Name: DANA PERALES Address: home [address] [address] Name: BO PERALES Address: home [address] [address] Name: DANA BALTAZAR Address: home [address] [address] Name: NALDO AVALOS Address: home [address] [place] [address] Name: NALDO BARNARD Address: home [address] [place] [address]
--- OUTSIDE RECORDS SUMMARY | 2024-06-17 06:06 | XMS_ITS | Continuity of Care Document ---
Author Organization [facility] Address [address] [place] [address]- Care Team Providers Care Human Resources Training Manager Name Role Phone Maritza CABEZAS, Bailey Goss Primary Care Physic pierre [facility] 08[facility]20 - 09/09/20 [facility] [address] [place] [id number] Allergies, Adverse Reactions, Alerts Substance [...] 3Admin Note: [facility] 4Result Comment: Lot [id number] ([id number]) [id number] 5Admin Note: dr hall 6Result Comment: [employer] [id number] L287x 27feblo Medications amlodipine 10 mg oral tablet 10 mg, 1, tablet, By Mouth, Daily, pharmacy wants 90 days, # 90 tablet, Refills 1, Tot. Refills 1, Maintenance, 07/10/16 21:05:57, Route to Pharmacy Electronically, [id number], [facility]pharmacy #[id number] Start Date: 07/10/16 Stop Date: 01/06/17 Status: Ordered aspirin 81 mg oral enteric coated tablet 1 tablet = 81 mg, By Mouth, Daily, # 30 tablet, 3 Refills, Maintenance Start Date: 05/27/09 Status: Ordered BD UF RAHDA PEN NEEDLE [id number] See Instructions, # 120 Unknown, Refills 5 [...] tablet, 1 Refills, Maintenance, 06/13/20 8:06:00 EDT, [facility] STORE [id number], 90, TAKE 1 TABLET BY MOUTH EVERY [...] 3 Refills, Maintenance, 08/30/20 8:19:00 EST, Tablet, [facility]/pharmacy #[id number], 170, cm, 03/29/20 10:57:00 EDT, [...] CHECK BLOOD SUGARS 3 TIMES A DAY, [facility]/pharmacy #0693 Start Date: 03/10/19 Status: Ordered [...] Maintenance, 07/07/18 11:08:24 EDT,Route to Pharmacy Electronically, [id number], [facility]/pharmacy #[id number] Start Date: 07/07/18 Status: Ordered metFORMIN 500 mg oral tablet, extended release 2 tablet = 1,000 mg, By Mouth, Daily, # 180 tablet, 1 Refills, Maintenance, 11/09/19 16:29:00 EST, [facility]/pharmacy #[id number], D/C RX on file 1000mg [...] Instructions Replace Required Details, Route to Pharmacy Electronically,[facility]/pharmacy #[id number], 170, cm, 03/29/20 10:57:00 EDT,... Start Date: 08/31/20 Status: Ordered tamsulosin 0.4 mg oral capsule See Instructions, # 90 capsule, TAKE 1 CAPSULE BY MOUTH EVERY DAY, [facility]/pharmacy #[id number] Start Date: 04/06/19 Status: Ordered [...] mL, 5 Refills, Maintenance, 08/25/20 11:22:00 EST, [facility]/pharmacy #[id number], 170, cm, 03/29/20 10:57:00 EDT, Height, 92, kg, 09/14/19 14:18:00 EST, Dry Weight Start Date: 08/25/20 Status: Ordered Triumeq oral tablet 1 tablet, By Mouth, Daily, # 90 tablet, 1 Refills, Maintenance, 08/30/20 11:56:00 EST, [facility] STORE [id number], 90, TAKE 1 TABLET BY MOUTH EVERY [...]
--- OUTSIDE RECORDS SUMMARY | 2024-06-17 06:06 | XMS_ITS | Continuity of Care Document ---
Author Organization [facility] Address [address] [place] [address]- Care Team Providers Care Stock Turner Name Role Phone Maritza CABEZAS, Bailey Goss Primary Care Physic pierre [facility] 01[facility]22 - 03/14/22 [facility] [address] [place] [address]- Attending Physician: Bailey Salas MD Allergies, Adverse Reactions, Alerts No Known Allergies Immunizations Given and Recorded Vaccine Date Status Refusal Reason SARS-CoV-2 mRNA (vupnebj-xdkt-cbgam) vax 10/18/21 Given influenza virus vaccine, inactivated [...] 05/28/09 Given 1Result Comment: [facility]: 26883-607-08 2Admin Note: By Dr Granado 3Admin Note: Dr Granado 4Admin Note: [facility] 5Result Comment: Lot [id number] 6Admin Note: dr hall 7Result Comment: [employer] [id number] L287x 27feblo Medications abacavir 300 mg oral [...] tablet, 0 Refills, Maintenance, 12/20/21 15:57:00 EDT, [facility]/pharmacy #0693, 1 tablet By Mouth Every 24 hours,x90 days, 175, cm, 12/06/21 8:15:00 EDT, Height, 78.5, kg, 10/10/21 0:43:00 EST, Dry Weight Start Date: 12/20/21 Stop Date: 03/20/22 Status: Ordered Crestor 40 mg oral tablet 1 tablet = 40 mg, By Mouth, Daily, for 90 days, # 90 tablet, 3 Refills, Hard Stop 11/05/22 10:20:00EST, 11/10/21 10:20:00 EST, Tablet, [facility]/pharmacy #0693, 175, cm, 10/27/21 13:06:00 EST, [...] 0 Refills, Maintenance, 11/10/21 15:20:00 EST, Tablet, [facility]/pharmacy #0693, Partial fill upon patient request if the prescription is for a schedule II opioid drug., 175, cm, 10/27/21 13:06:00 EST, Height... Start Date: 11/10/21 Status: Ordered metoprolol 50 mg oral tablet 50 mg, 1, tablet, By Mouth, 2 times a day, # 180 tablet, Refills 0, Tot. Refills 0, Maintenance, 12/20/21 15:57:00 EDT, Route to Pharmacy Electronically, [facility]/pharmacy #0693, Partial fill upon patientrequest if [...] each, 8 Refills, Maintenance, 04/17/22 12:47:00 EDT, [facility]/pharmacy #0693, Partial fill upon patient request if the prescription is for... Start Date: 04/17/22 Stop Date: 01/12/23 Status: Ordered Pen [place], 31 G x 5 mm BD Ultra [...] Replace Required Details, Route to Pharmacy Electronically, [facility]/pharmacy #0693, 175, cm, 12/06/21 8:15:00 EDT,... Start Date: 12/20/21 Status: Ordered Testopel = 300 mg, Subcutaneous Infusion, Every 3 months, 0 Refills, Maintenance, 03/26/15 23:08:01 Start Date: 03/26/15 Status: Ordered Tresiba FlexTouch 200 units/mL subcutaneous solution See Instructions, Take 28 units daily at lunch. E11.65, # 18 mL, 10 Refills, Maintenance, 03/31/21 10:22:00 EDT, [facility]/pharmacy #0693, 170, cm, 03/20/21 9:07:00 EDT, Height, 92, kg, 09/14/19 14:18:00 EST, Dry Weight Start Date: 03/31/21 Status: Ordered Trulicity Pen 3 mg/0.5 mL subcutaneous solution 0.5 mL = 3 mg, Subcutaneous Injection, Every week, Take 3mg once weekly. E11.65., # 2 mL, 5 Refills, Maintenance, 02/02/22 10:33:00 EDT, Solution, [facility]/pharmacy #0693, Partial fill upon patient request if the prescription is for a schedule II opioid drAlysha. Start Date: 02/02/22 Status: Ordered Problem List [...]
--- OUTSIDE RECORDS SUMMARY | 2024-06-17 06:06 | XMS_ITS | Continuity of Care Document ---
Author Organization [facility] Address [address] [place] [address]- Care Team Providers Care Safety Investigator/Cause Analyst Name Role Phone Maritza CABEZAS, Bailey Goss Primary Care Physic pierre [facility] 10[facility]18[facility]22 - 11/17/22 [facility] [address] [place] [id number] Allergies, Adverse Reactions, Alerts No Known Allergies Immunizations Given and Recorded Vaccine Date Status Refusal Reason SARS-CoV-2 mRNA (psldrja-yxzj-npiyy) vax 10/18/21 Given influenza virus vaccine, inactivated [...] 1Result Comment: [facility]: 91272-355-79 2Admin Note: By Dr Granado 3Admin Note: Dr Granado 4Admin Note: [facility] 5Result Comment: Lot [id number] (E) [id number] 6Admin Note: dr hall 7Result Comment: [employer] [id number] L287x 27feblo Medications amLODIPine 2.5 mg oral tablet 2.5 mg, 1, tablet, By Mouth, Daily, # 90 tablet, Refills 3, Tot. Refills 3, Maintenance, 10/03/22 15:00:00 EST, Route to Pharmacy Electronically, [facility]/pharmacy #0693, Partial fill upon patient requestif the prescription is for a schedule II opioid sandip... Start Date: 10/03/22 Status: Ordered Aricept 5 mg oral tablet 5 mg, 1, tablet, By Mouth, Daily at bedtime, For memory loss, # 90 tablet, Refills 3, Tot. Refills 3, Maintenance, 08/17/22 17:19:00 EST, Route to Pharmacy Electronically, [facility]/pharmacy #[id number], Partialfill upon patient request [...] each, 8 Refills, Maintenance, 04/17/22 12:47:00 EDT, [facility]/pharmacy #0693, Partial fill upon patient request if the prescription is for... Start Date: 04/17/22 Stop Date: 01/12/23 Status: Ordered Pen [place], 31 G x 5 mm BD Ultra [...] Replace Required Details, Route to Pharmacy Electronically, [facility]/pharmacy #0693, 175, cm, 10/03/22 14:39:00 [...] 5 Refills, Maintenance, 10/18/22 16:22:00 EST, Solution, [facility], Partial fill upon patient request [...] Physician Name: Maritza CABEZAS, Bailey Goss Position: [facility] Primary Care Physician Member Role: PCP Address: Address: [address] [place] [address]- Name: Derik Gaines MD Position: [facility] Renal MD Member Role: Lifetime Consulting Physician Address: Address: [address] [place] [address] [address] [facility] [place] [address]- Name: Jazmin Florez RN Position: [facility] RN Supv Member Role: Primary Care Nurse Name: Kiana Castelan Position: [facility] Outreach Member Role: Lifetime Consulting Physician Name: Bayron Brandt DO Position: [facility] Renal MD Member Role: Lifetime Consulting Physician Address: Address: [address] [facility] [address] [facility] [place] [place] [address]- [place] Name: Amie Caldwell PharmD Position: [facility] Associate Professional Member Role: Lifetime Consulting Provider Address: Address: [address] [place] [address]- [place] Name: Eric Garcia RN Position: [facility] RN Member Role: Primary Care Nurse Name: Jaclyn Schulte RN Position: [facility] RN Member Role: Primary Care Nurse Name: Kavon Liu MD Position: Reference Physician Member Role: Lifetime Consulting Physician Address: Address: [address] [place] [address] [address] [facility] [place] [address]- Care Team Related Persons Name: DANA PERALES Address: home [address] [place] [address] Name: BO PERALES Address: home [address] [place] [address] Name: DANA BALTAZAR Address: home [address] [place] [address] Name: NALDO AVALOS Address: home [address] [place] [address] Name: NALDO BARNARD Address: home [address] [place] [address]
--- OUTSIDE RECORDS SUMMARY | 2024-06-17 06:06 | XMS_ITS | Continuity of Care Document ---
Author Organization [facility] Address [address] [place] [address]- Care Team Providers Care Lead Instructor/Flight Attendant Name Role Phone Geoff Glover DO Primary Care Physician Encounter [facility] Date(s): 10/23/19 - 10/30/19 [facility] [address] [place] [address]- [facility] Encounter Diagnosis Obstructive sleep apnea syndrome, mild(Discharge Diagnosis) - 10/23/19 Hypertension(Discharge Diagnosis) - 10/23/19 Daytime somnolence(Discharge Diagnosis) - 10/23/19 Attending Physician: Grabiel Davidson MD Referring Physician: Geoff [...] 3Admin Note: [facility] 4Result Comment: Lot [id number] (E) [id number] 5Admin Note: dr hall 6Result Comment: [employer] [id number] [id number] 27feblo Medications amlodipine 10 mg oral tablet 10 mg, 1, tablet, By Mouth, Daily, pharmacy wants 90 days, # 90 tablet, Refills 1, Tot. Refills 1, Maintenance, 07/10/16 21:05:57, Route to Pharmacy Electronically, [id number], [facility]/pharmacy #[id number] Start Date: 07/10/16 Stop Date: 01/06/17 Status: Ordered aspirin 81 mg oral enteric coated tablet 1 tablet = 81 mg, By Mouth, Daily, # 30 tablet, 3 Refills, Maintenance Start Date: 05/27/09 Status: Ordered BD UF RADHA PEN NEEDLE [id number] See Instructions, # 120 Unknown, Refills 5 [...] Maintenance, 07/07/18 11:08:24 EDT,Route to Pharmacy Electronically, [id number], [facility]/pharmacy #[id number] Start Date: 07/07/18 Status: Ordered metFORMIN 500 mg oral tablet, extended release 2 tablet = 1,000 mg, By Mouth, Daily, # 120 tablet, 11 Refills, Maintenance, 10/21/18 17:17:09 EST,[id number], D/C RX on file 1000mg not [...] Effective Dates Health Status Clinical Service Informant Obstructive sleep apnea syndrome, mild Discharge Diagnosis 10/23/19 Hypertension Discharge Diagnosis 10/23/19 Daytime somnolence Discharge Diagnosis 10/23/19 Vital Signs Most recent to oldest [Reference Range]: 1 Height 170.5 cm (10/23/19 1:03 PM) Weight 92.7 kg (10/23/19 1:03 PM) Oxygen Saturation [94-100 %] 97 % (10/23/19 1:03 PM) Pulse Rate [55-90 bpm] 84 bpm (10/23/19 1:03 PM) Body Mass Index [18.5-24.99] 31.89 *>HHI* (10/23/19 1:03 PM) Blood Pressure [90-138/55-84 mm Hg] 117/ 61mm Hg (10/23/19 1:03 PM) Mode of Delivery (Oxygen) Room air (10/23/19 1:03 PM) Blood pressure sites Arm, right (10/23/19 1:03 PM) Weight Obtained Via Standing scale (10/23/19 1:03 PM) Social History Social History Type Response Smoking Status Former smoker, quit more than 30 days ago entered on: 12/29/18 Sex
--- OUTSIDE RECORDS SUMMARY | 2024-06-17 06:06 | XMS_ITS | Continuity of Care Document ---
Author Organization [facility] Steve Ankit lt Address [address] [place] [address]- Care Team Providers Care Secondary English Teacher Name Role Phone Maritza CABEZAS, Bailey Goss Primary Care Physic pierre Encounter [facility] Date(s): 07/30/20 - 08/29/20 [facility] Adult [address] [place] [address]- Allergies, Adverse Reactions, Alerts Substance Reaction Severity [...] 3Admin Note: [facility] CLINIC 4Result Comment: Lot [id number] (E) [id number] 5Admin Note: dr hall 6Result Comment: [employer] [id number] L287x 27feblo Medications amlodipine 10 mg oral tablet 10 mg, 1, tablet, By Mouth, Daily, pharmacy wants 90 days, # 90 tablet, Refills 1, Tot. Refills 1, Maintenance, 07/10/16 21:05:57, Route to Pharmacy Electronically, [id number], [facility]/pharmacy #[id number] Start Date: 07/10/16 Stop Date: 01/06/17 Status: Ordered aspirin 81 mg oral enteric coated tablet 1 tablet = 81 mg, By Mouth, Daily, # 30 tablet, 3 Refills, Maintenance Start Date: 05/27/09 Status: Ordered BD UF RADHA PEN NEEDLE [id number] See Instructions, # 120 Unknown, Refills 5 Tot. Refills 5, USE DAILY, [facility]/pharmacy #[id number] Start Date: 07/10/19 Status: Ordered [...] tablet, 1 Refills, Maintenance, 06/13/20 8:06:00 EDT, [facility] STORE [id number], 90, TAKE 1 TABLET BY MOUTH EVERY [...] CHECK BLOOD SUGARS 3 TIMES A DAY, [facility]/pharmacy #[id number] Start Date: 03/10/19 Status: Ordered [...] Maintenance, 07/07/18 11:08:24 EDT,Route to Pharmacy Electronically, [id number], [facility]/pharmacy #[id number] Start Date: 07/07/18 Status: Ordered metFORMIN 500 mg oral tablet, extended release 2 tablet = 1,000 mg, By Mouth, Daily, # 180 tablet, 1 Refills, Maintenance, 11/09/19 16:29:00 EST, [facility]/pharmacy #[id number], D/C RX on file 1000mg [...] TAKE 1 CAPSULE BY MOUTH EVERY DAY, [facility]/pharmacy #[id number] Start Date: 04/06/19 Status: Ordered tamsulosin 0.4 mg oral capsule See Instructions, TAKE 1 CAPSULE BY MOUTH EVERY DAY, # 90 capsule, Refills 1, Tot. Refills 1, Soft Stop, 02/09/20 14:57:00 EDT, Instructions Replace Required Details, Route to Pharmacy Electronically, [facility]/pharmacy #[id number], 170.5, cm, 01/31/20 10:18:00 E... [...] mL, 5 Refills, Maintenance, 08/25/20 11:22:00 EST, [facility]/pharmacy #[id number], 170, cm, 03/29/20 10:57:00 EDT, [...]
--- OUTSIDE RECORDS SUMMARY | 2024-06-17 06:06 | XMS_ITS | Continuity of Care Document ---
Author Organization [facility] Address [address] [place] [address]- Care Team Providers Care Aboriginal Liaison Officer Name Role Phone Geoff Glover DO Primary Care Physician Encounter [facility] Date(s): 09/14/19 - 09/21/19 [facility] [address] [place] [address]- [facility] Encounter Diagnosis HIV(Discharge Diagnosis) - 09/14/19 CKD (chronic kidney disease) stage 3, GFR 30-59 ml/min(Discharge Diagnosis) - 09/14/19 Diabetes mellitus - adult onset(Discharge Diagnosis) - 09/14/19 Depression, major(Discharge Diagnosis) - 09/14/19 Low testosterone(Discharge Diagnosis) - 09/14/19 Sleep apnea(Discharge Diagnosis) - 09/14/19 Attending Physician: Geoff Glover DO Allergies, Adverse [...] 3Admin Note: [facility]INIC 4Result Comment: Lot [id number] (E) [id number] 5Admin Note: dr hall 6Result Comment: [employer] [id number] L287x 27feblo Medications amlodipine 10 mg oral tablet 10 mg, 1, tablet, By Mouth, Daily, pharmacy wants 90 days, # 90 tablet, Refills 1, Tot. Refills 1, Maintenance, 07/10/16 21:05:57, Route to Pharmacy Electronically, [id number], [facility]/pharmacy #[id number] Start Date: 07/10/16 Stop Date: 01/06/17 Status: Ordered aspirin 81 mg oral enteric coated tablet 1 tablet = 81 mg, By Mouth, Daily, # 30 tablet, 3 Refills, Maintenance Start Date: 05/27/09 Status: Ordered BD UF ARDHA PEN NEEDLE [id number] See Instructions, # 120 Unknown, Refills 5 Tot. Refills 5, USE DAILY, [facility]/pharmacy #[id number] Start Date: 07/10/19 Status: Ordered buPROPion 150 mg/24 hours (XL) oral tablet, extended release 1 tablet = 150 mg, By Mouth, Every 24 hours, # 90 tablet, 1 Refills, Maintenance, 08/26/19 9:56:00 EST, ER Tablet, [facility]/pharmacy #[id number], 1 tablet By [...] BLOOD SUGARS 3 TIMES A DAY, [facility]/pharmacy #[id number] Start Date: 03/10/19 Status: Ordered [...] Maintenance, 07/07/18 11:08:24 EDT,Route to Pharmacy Electronically, [id number], [facility]/pharmacy #[id number] Start Date: 07/07/18 Status: Ordered [...] 1 CAPSULE BY MOUTH EVERY DAY, [facility]/pharmacy #[id number] Start Date: 06/01/19 Status: Ordered tamsulosin 0.4 mg oral capsule See Instructions, # 90 capsule, TAKE 1 CAPSULE BY MOUTH EVERY DAY, [facility]/pharmacy #[id number] Start Date: 7/29/19 Status: Ordered Testopel = 300 mg, Subcutaneous [...] mL, 5 Refills, Maintenance, 09/18/19 15:13:00 EST, [facility]/pharmacy #[id number], D/C RX ON FILE FOR [...] symptom(Confirmed) 1 Active Viral URI(Confirmed) Active 1snoring Diagnosis Diagnosis Type Effective Dates Health Status Clinical Service Informant HIV Discharge Diagnosis 09/14/19 CKD (chronic kidney disease) stage 3, GFR 30-59 ml/min Discharge Diagnosis 09/14/19 Diabetes mellitus - adult onset Discharge Diagnosis 09/14/19 Depression, major Discharge Diagnosis 09/14/19 Low testosterone Discharge Diagnosis 09/14/19 Sleep apnea Discharge Diagnosis 09/14/19 Vital Signs Most recent to oldest [Reference Range]: 1 Height 170.5 cm (09/14/19 2:18 PM) Weight 92 kg (09/14/19 2:18 PM) Oxygen Saturation [94-100 %] 98 % (09/14/19 2:18 PM) Pulse Rate [55-90 bpm] 75 bpm (09/14/19 2:18 PM) Body Mass Index [18.5-24.99] 31.65 *>HHI* (09/14/19 2:18 PM) Blood Pressure [90-138/55-84 mm Hg] 134/ 78mm Hg (09/14/19 2:18 PM) Respiratory Rate [16-30 br/min] 18 br/mi n (09/14/19 2:18 PM) Temperature [96.8-100.4 DegF] 97.8 DegF (09/14/19 2:18 PM) Blood pressure sites Arm, left (09/14/19 2:18 PM) Temperature Route Oral (09/14/19 2:18 PM) Dry Weight 92 kg (09/14/19 2:18 PM) Weight Obtained Via Standing scale (09/14/19 2:18 PM) Social History Social History Type Response Smoking Status Former smoker, quit more than 30 days ago entered on: 12/29/18 Sex
--- OUTSIDE RECORDS SUMMARY | 2024-06-17 06:06 | XMS_ITS | Continuity of Care Document ---
Author Organization [facility] Address [address] [place] [address]- Care Team Providers Care Sales Service Professional Name Role Phone Maritza CABEZAS, Bailey Goss Primary Care Physic pierre Encounter [facility] Date(s): 04/10/21 - 05/10/21 [facility] [address] [place] [address]- Allergies, Adverse Reactions, Alerts Substance Reaction Severity [...] 3Admin Note: FLU CLINIC 4Result Comment: Lot [id number] (E) [id number] 5Admin Note: dr hall 6Result Comment: [employer] [id number] L287x 27feblo Medications amlodipine 10 mg oral tablet 10 mg, 1, tablet, By Mouth, Daily, pharmacy wants 90 days, # 90 tablet, Refills 1, Tot. Refills 1, Maintenance, 07/10/16 21:05:57, Route to Pharmacy Electronically, [id number], [facility]/pharmacy #[id number] Start Date: 07/10/16 Stop Date: 01/06/17 Status: Ordered aspirin 81 mg oral enteric coated tablet 1 tablet = 81 mg, By Mouth, Daily, # 30 tablet, 3 Refills, Maintenance Start Date: 05/27/09 Status: Ordered BD UF RADHA PEN NEEDLE [id number] See Instructions, # 120 Unknown, Refills 5 [...] tablet, 1 Refills, Maintenance, 04/13/21 15:06:00 EDT, [facility]/pharmacy #[id number], 90, 1 tablet By [...] CHECK BLOOD SUGARS 3 TIMES A DAY, [facility]/pharmacy #[id number] Start Date: 03/10/19 Status: [...] Maintenance, 07/07/18 11:08:24 EDT,Route to Pharmacy Electronically, [id number], [facility]/pharmacy #[id number] Start Date: 07/07/18 Status: [...] Replace Required Details, Route to Pharmacy Electronically, [facility]/pharmacy #[id number], 170, cm, 02/23/21 11:12:00 EDT... Start Date: 03/08/21 Status: Ordered Testopel = 300 mg, Subcutaneous Infusion, Every 3 months, 0 Refills, Maintenance, 03/26/15 23:08:01 Start Date: 03/26/15 Status: Ordered Tresiba FlexTouch 200 units/mL subcutaneous solution See Instructions, Take 110 units daily in the evening. E11.65, # 18 mL, 10 Refills, Maintenance, 03/31/21 10:22:00 EDT, [facility]/pharmacy #[id number], 170, cm, 03/20/21 9:07:00 EDT, Height, 92, kg, 09/14/19 14:18:00 EST, Dry Weight Start Date: 03/31/21 Status: Ordered Triumeq oral tablet 1 tablet, By Mouth, Daily, # 90 tablet, 0 Refills, Maintenance, 02/02/21 18:11:00 EDT, [facility]/pharmacy#0693, 1 tablet By Mouth Daily, 170, cm, 01/11/21 9:05:00 EDT, Height, 92, kg, 09/14/19 14:18:00 EST, Dry Weight Start Date: 02/02/21 Status: Ordered Trulicity Pen 3 mg/0.5 mL subcutaneous solution 0.5 mL = 3 mg, Subcutaneous Injection, Every week, Take 3mg once weekly. E11.65., # 2 mL, 5 Refills, Maintenance, 04/05/21 12:10:00 EDT, Solution, [facility]/pharmacy #[id number], Partial fill upon patient [...]
--- OUTSIDE RECORDS SUMMARY | 2024-06-17 06:07 | XMS_ITS | Continuity of Care Document ---
Author Organization [facility] Address [address] [place] [address]- Care Team Providers Care Knife Glazer Name Role Phone Maritza CABEZAS, Bailey Goss Primary Care Physic pierre Encounter [facility] Date(s): 12/18/23 - 01/17/24 [facility] [address] [place] [address]- Allergies, Adverse Reactions, Alerts No Known Allergies Immunizations Given and Recorded Vaccine Date Status Refusal Reason zoster vaccine, inactivated 04/19/23 Recorded tetanus/diphtheria/pertussis, acel(Tdap) 03/28/23 Given pneumococcal 23-valent vaccine 03/28/23 Given pneumococcal 23-valent vaccine 1 05/28/09 Given [id number] 12y+ bivalent booster vax 08/28/22 Recorded influenza [...] inactivated 6 05/28/09 Gi isidra SARS-CoV-2 mRNA (dvngoxb-rmzn-gbofk) vax 10/18/21 Given SARS-CoV-2 (COVID-19) mRNA BNT-162b2 vac 01/01/21 Recorded SARS-CoV-2 (COVID-19) mRNA BNT-162b2 vac 12/10/20 Recorded Influenza Virus Vaccine (oldterm) 06/13/19 Recorde d pneumococcal 13-valent vaccine 10/03/16 Given Fluvirin (oldterm) 05/23/11 Given Tet/diphth/pertussis, acel (oldterm) 05/23/11 Give n FluLaval (oldterm) 7 06/09/10 Given 1Result Comment: [employer] [id number] L287x 27feblo 2Result Comment: [facility]: [id number] 3Admin Note: By Dr Granado 4Admin Note: Dr Granado 5Admin Note: FLU CLINIC 6Result Comment: Lot [id number] E) [id number] 7Admin Note: dr hall Medications Alcohol Pads [...] Refills, Maintenance, 10/03/23 1:26:00 EST, XL Tablet, [facility]/pharmacy #[id number], Partial fill upon patient [...] 10/03/23 1:26:00 EST, Route to Pharmacy Electronically, [facility]/pharmacy #[id number], Partial fill upon patient [...] 10/03/23 1:27:00 EST, Route to Pharmacy Electronically, [facility]/pharmacy #[id number], Partial fill upon patient request if the prescription is for a schedule I... Start Date: 10/03/23 Status: Ordered metoprolol succinate 200 mg oral capsule, extended release 1 capsule = 200 mg, By Mouth, Daily, blister pack, # 90 capsule, 0 Refills, Maintenance, 10/03/23 1:28:00 EST, ER Capsule, [facility]/pharmacy #[id number], Partial fill upon patient request if the prescription isfor a schedule II opioid drug., 172, cm, 10/02/23 7... Start Date: 10/03/23 Status: Ordered Myrbetriq 50 mg oral tablet, extended release 1 tablet = 50 mg, By Mouth, Daily, blister pack do not crush or chew, # 90 tablet, 0 Refills, Maintenance, 10/03/23 1:28:00 EST, ER Tablet, [facility]/pharmacy #[id number], Partial fill upon patient request if the prescription is for a schedule II opioid drug., 17... Start Date: 10/03/23 Status: Ordered ondansetron 8 mg oral tablet, disintegrating 1 tablet = 8 mg, By Mouth, 3 times a day, PRN Nausea & Vomiting, # 9 tablet, 0 Refills, Maintenance, 01/14/24 20:00:00 EDT, DIS Tablet, [facility]/pharmacy #[id number], Partial fill upon patient [...] 10/03/23 Stop Date: 11/02/23 Status: Ordered Pen [place], 31 G x 5 mm BD Ultra [...] 0 Refills, Maintenance, 10/03/23 1:28:00 EST, Tablet, [facility]/pharmacy #[id number], Partial fill upon patient request if the prescription is for a schedule II opioid drug., 172, cm, 10/02/23 7:02:00... Start Date: 10/03/23 Status: Ordered tamsulosin 0.4 mg oral capsule 0.4 mg, 1, capsule, By Mouth, Daily, blister pack, # 90 capsule, Refills 0, Tot. Refills 0, Maintenance, 10/03/23 1:29:00 EST, Route to Pharmacy Electronically, [facility]/pharmacy #[id number], Partial fill upon patient [...] 0 Refills, Maintenance, 10/03/23 1:27:00 EST, Solution, [facility]/pharmacy #[id number], Partial fill upon patient [...] Care Team Personnel Name: Nuzhat Sainz Position: [facility] Outreach Member Role: Lifetime Consulting Physician Name: Janel Mead RN Position: [facility] RN Member Role: Primary Care Nurse Name: Maritza CABEZAS, Bailey Goss Position: [facility] Physician - Primary Care Member Role: PCP Address: Address: [address] [place] [id number]- Name: Derik Gaines MD Position: [facility] Renal MD Member Role: Lifetime Consulting Physician Address: Address: [address] [place], [place] [address] [place] [address]- Name: Kiana Castelan [place] Position: [facility] HAMILTON CARLOS Member Role: Lifetime Consulting Physician Name: Bayron Brandt DO Position: [facility] Renal MD Member Role: Lifetime Consulting Physician Address: Address: [address] [place] [address] [address] [facility] [place] [address]- Name: Amie Caldwell PharmD Position: [facility] Associate Professional Member Role: Lifetime Consulting Provider Address: Address: [address] [facility] [place] [address]- [place] Name: Eric Garcia RN Position: [facility] RN Member Role: Primary Care Nurse Name: Jaclyn Schulte RN Position: [facility] RN Member Role: Primary Care Nurse Name: Kavon Liu MD Position: Reference Physician Member Role: Lifetime Consulting Physician Address: Address: [address] [place] [address] [address] [facility] [place] [address]- Care Team Related Persons Name: DANA PERALES Address: home [address] [facility] [place] [place] [address] Name: BO PERALES Address: home [address] [address] Name: DANA BALTAZAR Address: home [address] [place] [address] Name: NALDO AVALOS Address: home [address] [place] [address] Name: NALDO BARNARD Address: home [address] [place] [address]
--- OUTSIDE RECORDS SUMMARY | 2024-06-17 06:07 | XMS_ITS | Continuity of Care Document ---
Author Organization [facility] Address [address] [place] [address]- Care Team Providers Care Cigar Head Pegger Name Role Phone Geoff Glover DO Primary Care Physician [place] [facility] [place]23[place] 12/30/19 [facility] [address] [place] [address] Attending Physician: Ollie CABEZAS, Ananditorfatmata Allergies, Adverse Reactions, Alerts Substance Reaction Severity [...] 3Admin Note: FLU CLINIC 4Result Comment: Lot [id number] (E) [id number] 5Admin Note: dr hall 6Result Comment: [employer] [id number] L287x 27feblo Medications amlodipine 10 mg oral tablet 10 mg, 1, tablet, By Mouth, Daily, pharmacy wants 90 days, # 90 tablet, Refills 1, Tot. Refills 1, Maintenance, 07/10/16 21:05:57, Route to Pharmacy Electronically, [id number], [facility]/pharmacy #[id number] Start Date: 07/10/16 Stop Date: 01/06/17 Status: Ordered aspirin 81 mg oral enteric coated tablet 1 tablet = 81 mg, By Mouth, Daily, # 30 tablet, 3 Refills, Maintenance Start Date: 05/27/09 Status: Ordered BD UF RADHA PEN NEEDLE [id number] See Instructions, # 120 Unknown, Refills 5 Tot. Refills 5, USE DAILY, [facility]/pharmacy #[id number] Start Date: 07/10/19 Status: Ordered buPROPion 150 mg/24 hours (XL) oral tablet, extended release 1 tablet = 150 mg, By Mouth, Every 24 hours, # 90 tablet, 1 Refills, Maintenance, 08/26/19 9:56:00 EST, ER Tablet, [facility]/pharmacy #[id number], 1 tablet By [...] CHECK BLOOD SUGARS 3 TIMES A DAY, [facility]/pharmacy #[id number] Start Date: 03/10/19 Status: Ordered Freestyle [...] Maintenance, 07/07/18 11:08:24 EDT,Route to Pharmacy Electronically, [id number], [facility]/pharmacy #[id number] Start Date: 07/07/18 Status: Ordered metFORMIN 500 mg oral tablet, extended release 2 tablet = 1,000 mg, By Mouth, Daily, # 180 tablet, 1 Refills, Maintenance, 11/09/19 16:29:00 EST, [facility]/pharmacy #[id number], D/C RX on file 1000mg not [...]
--- OUTSIDE RECORDS SUMMARY | 2024-06-17 06:07 | XMS_ITS | Continuity of Care Document ---
Author Organization [facility] Address [address] [address]- Care Team Providers Care Gum Rolling Machine Tender Name Role Phone Maritza CABEZAS, Bailey Goss Primary Care Physic pierre Encounter [facility] [place] Date(s): 10/11/22 - 12/16/[address] [address]- Attending Physician: Jorge Velasquez MD Admitting Physician: Jorge Velasquez MD Referring Physician: Jorge Velasquez MD Allergies, Adverse Reactions, Alerts No Known Allergies Immunizations Given and Recorded Vaccine Date Status Refusal Reason SARS-CoV-2 mRNA ([id number]) vax 10/18/21 Given influenza virus vaccine, inactivated [...] 23-valent vaccine 7 05/28/09 Given 1Result Comment: [facility]: [id number] 2Admin Note: By Dr Granado 3Admin Note: Dr Granado 4Admin Note: [facility] 5Result Comment: Lot [id number] 6Admin Note: dr hall 7Result Comment: [facility] [id number] 27feblo Medications amLODIPine 2.5 mg oral tablet 2.5 mg, 1, tablet, By Mouth, Daily, # 90 tablet, Refills 3, Tot. Refills 3, Maintenance, 10/03/22 15:00:00 EST, Route to Pharmacy Electronically, [facility]/pharmacy #[id number], Partial fill upon patient requestif the prescription is for a schedule II opioid sandip... Start Date: 10/03/22 Status: Ordered Aricept 5 mg oral tablet 5 mg, 1, tablet, By Mouth, Daily at bedtime, For memory loss, # 90 tablet, Refills 3, Tot. Refills 3, Maintenance, 08/17/22 17:19:00 EST, Route to Pharmacy Electronically, [facility]/pharmacy #[id number], Partialfill upon patient request if the prescription is fo... Start Date: 08/17/22 Status: Ordered aspirin 81 mg oral delayed release tablet = 81 mg, By Mouth, Daily, # 30 tablet, 0 Refills, Maintenance, 11/10/21 15:20:00 EST, EC Tablet, [facility]/pharmacy #[id number], Partial fill upon patient request if [...] Refills, Maintenance, 04/20/22 13:02:00 EDT, [facility]/pharmacy #[id number], 1 tablet By Mouth Every 24 [...] each, 8 Refills, Maintenance, 04/17/22 12:47:00 EDT, [facility]pharmacy [id number], Partial fill upon patient request if the prescription is for... Start Date: 04/17/22 Stop Date: 01/12/23 Status: Ordered Pen [place], 31 G x 5 mm BD Ultra [...] Details, Route to Pharmacy Electronically, [facility]/pharmacy #[id number], 175, cm, 10/03/22 14:39:00 EST... Start [...] 5 Refills, Maintenance, 10/18/22 16:22:00 EST, Solution, [facility], Partial fill upon patient [...] Care Team Personnel Name: Nuzhat Sainz Position: [facility] Outreach Member Role: Lifetime Consulting Physician Name: Maritza CABEZAS, Bailey Goss Position: [facility] Primary Care Physician Member Role: PCP Address: Address: [address] [place] [id number]- Name: Derik Gaines MD Position: [facility] Renal MD Member Role: Lifetime Consulting Physician Address: Address: [address] [place] [address] [address] [facility] [place] [address]- Name: Jazmin Florez RN Position: [facility] RN Supv Member Role: Primary Care Nurse Name: Kiana Castelan Position: S Outreach Member Role: Lifetime Consulting Physician Name: Bayron Brandt DO Position: [facility] Renal MD Member Role: Lifetime Consulting Physician Address: Address: [address] [facility] [address] [facility] [place] [address]- [place] Name: Amie Caldwell PharmD Position: [facility] Associate Professional Member Role: Lifetime Consulting Provider Address: Address: [address] [facility] [place] [address]- [place] Name: Eric Garcia RN Position: [facility] RN Member Role: Primary Care Nurse Name: Jaclyn Schulte RN Position: [facility] RN Member Role: Primary Care Nurse Name: Kavon Liu MD Position: Reference Physician Member Role: Lifetime Consulting Physician Address: Address: [address] [place] [address] [address] [facility] [place] [address]- Care Team Related Persons Name: DANA PERALES Address: home [address] [place] [address] Name: BO PERALES Address: home [address] [place] [address] Name: DANA BALTAZAR Address: home [address] [place] [address] Name: NALDO AVALOS Address: home [address] [place] [address] Name: NALDO BARNARD Address: home [address] [place] [address]
--- OUTSIDE RECORDS SUMMARY | 2024-06-17 06:07 | XMS_ITS | Continuity of Care Document ---
Author Organization [facility] Address [address] [place] [address]- Care Team Providers Care Safety Belt Installer Name Role Phone Maritza CABEZAS, Bailey Goss Primary Care Physic pierre [place] [facility] [place] [facility] [id number] Date(s): 10/03/22 - 11/02/22 [facility] [address] [place] [address]- Attending Physician: Marie Ferrer Admitting Physician: Marie Ferrer Referring Physician: Marie Ferrer Allergies, Adverse Reactions, Alerts No Known Allergies Immunizations Given and Recorded Vaccine Date Status Refusal Reason SARS-CoV-2 mRNA ([id number]) vax 10/18/21 Given influenza virus vaccine, inactivated [...] vaccine 7 05/28/09 Given 1Result Comment: [facility]: [id number] 2Admin Note: By Dr Granado 3Admin Note: Dr Granado 4Admin Note: [facility] 5Result Comment: Lot [id number] (C) [id number] 6Admin Note: dr hall 7Result Comment: [facility] [employer] [facility] [employer] [facility] [id number] L287x 27feblo Medications amLODIPine 2.5 mg oral tablet 2.5 mg, 1, tablet, By Mouth, Daily, # 90 tablet, Refills 3, Tot. Refills 3, Maintenance, 10/03/22 15:00:00 EST, Route to Pharmacy Electronically, [facility]/pharmacy #[id number], Partial fill upon patient requestif the prescription is for a schedule II opioid sandip... Start Date: 10/03/22 Status: Ordered Aricept 5 mg oral tablet 5 mg, 1, tablet, By Mouth, Daily at bedtime, For memory loss, # 90 tablet, Refills 3, Tot. Refills 3, Maintenance, 08/17/22 17:19:00 EST, Route to Pharmacy Electronically, [id number], Partialfill upon patient request if the [...] Stop 11/05/22 10:20:00EST, 11/10/21 10:20:00 EST, Tablet, [facility]/pharmacy #[id number], 175, cm, 10/27/21 13:06:00 EST, [...] each, 8 Refills, Maintenance, 04/17/22 12:47:00 EDT, [facility]/pharmacy #[id number], Partial fill upon patient request if the prescription is for... Start Date: 04/17/22 Stop Date: 01/12/23 Status: Ordered Pen [place], 31 G x 5 mm BD Ultra [...] Route to Pharmacy Electronically, [facility]/pharmacy #[id number], 175, cm, 10/03/22 14:39:00 EST... Start Date: 2/20/23 Status: Ordered Testopel = 300 mg, Subcutaneous Infusion, Every 3 months, 0 Refills, Maintenance, 03/26/15 23:08:01 Start Date: 03/26/15 Status: Ordered Tresiba FlexTouch 200 units/mL subcutaneous solution See Instructions, Take 22 units daily at lunch. E11.65, # 9 mL, 10 Refills, Maintenance, 05/28/22 13:10:00 EDT, [facility]/pharmacy #[id number], 175, cm, 02/06/22 16:03:00 EDT, Height, 78.5, kg, 10/10/21 0:43:00 EST, Dry Weight Start Date: 05/28/22 Status: Ordered Trulicity Pen 3 mg/0.5 mL subcutaneous solution 0.5 mL = 3 mg, Subcutaneous Injection, Every week, Take 3mg once weekly. E11.65., # 2 mL, 5 Refills, Maintenance, 10/18/22 16:22:00 EST, Solution, [facility], Partial fill upon patient [...] CABEZAS, Bailey Goss Position: [facility] Primary Care Physician Member Role: PCP Address: Address: [address] [address]- [place] Name: Derik Gaines MD Position: [facility] Renal MD Member Role: Lifetime Consulting Physician Address: Address: [address] [facility] [address] [facility] [place] [address]- [place] Name: Jazmin Florez RN Position: [facility] RN Supv Member Role: Primary Care Nurse Name: Kiana Castelan Position: [facility] Outreach Member Role: Lifetime Consulting Physician Name: Bayron Brandt DO Position: [facility] Renal MD Member Role: Lifetime Consulting Physician Address: Address: [address] [facility] [address] [facility] [place] [address]- [place] Name: Amie Caldwell PharmD Position: [facility] Associate Professional Member Role: Lifetime Consulting Provider Address: Address: [address] [facility] [place] [address]- [place] Name: Eric Garcia RN Position: [facility] RN Member Role: Primary Care Nurse Name: Jaclyn Schulte RN Position: [facility] RN Member Role: Primary Care Nurse Name: Kavon Liu MD Position: Reference Physician Member Role: Lifetime Consulting Physician Address: Address: [address] [place] [address] [address] [facility] [place] [address]- [place] Care Team Related Persons Name: DANA PERALES Address: home [address] [address] Name: BO PERALES Address: home [address] [place] [address] Name: DANA BALTAZAR Address: home [address] [place] [address] Name: NALDO AVALOS Address: home [address] [place] [address] Name: NALDO BARNARD Address: home [address] [place] [address]
[2024-06-17 06:10] LABS: Basophils Percent Auto 0.1 % (0-2); Hematocrit 44.8 % (42.0-52.0); Hemoglobin 15.9 g/dl (14.0-18.0); Imm Gran Abs Auto 0.05 X10*3/uL (0.00-0.03); Imm Gran Pct Auto 0.6 % (0.0-0.4); Lymphocytes Absolute Auto 0.7 X10*3/uL (1.2-4.9); Lymphocytes Percent Auto 7.7 % (20-40); MANUAL DIFF FLAG SCAN; Mean Corpuscular HGB Conc 35.5 g/dl (31.0-36.0); Mean Corpuscular Hemoglobin 31.2 pg (27.0-33.0); Mean Corpuscular Volume 87.8 fL (80.0-98.0); Mean Platelet Volume 10.3 fL (9.4-12.4); Monocytes Absolute Auto 0.1 X10*3/uL (0.1-1.2); Monocytes Percent Auto 1.1 % (2-11); Neutrophils Percent Auto 90.5 % (45-73); Platelet Count 194 X10*3/uL (160-400); Red Cell Distribution Width 12.7 % (11.0-16.0); SCAN SMEAR FLAG 1; White Blood Count 8.9 X10*3/uL (4.8-10.8)
[2024-06-17 06:22] LABS: Appearance Urine Clear; Bacteria Urine None Seen (None Seen); Color Urine Yellow; Glucose Urine UA >=1000 mg/dL (Negative); Hyaline Casts Urine 0-2 /LPF (0-2); Leukocyte Esterase Urine Negative (Negative); Nitrite Urine Negative (Negative); PH 5.5 (5.0-9.0); RBC Urine 0-2 /HPF (0-2); Specific Gravity - Urine >= 1.030 (1.005-1.025); Squamous Epithelial Cell Urine 0-2 /HPF (0-2); UMIC TRIGGER UACC YES; Urine Blood Trace (Negative); Urine Ketones Negative (Negative); Urine Protein 100 (2+) mg/dL (Neg-Trace); WBC Urine 0-5 /HPF (0-5)
[2024-06-17 06:27] LABS: SLIDE REVIEW VERIFIED
[2024-06-17 06:30] LABS: Alanine Aminotransferase 21 U/L (0-40); Albumin Level 4.2 g/dL (3.5-5.0); Alkaline Phosphatase 117 U/L (39-117); Anion Gap 17 (12-20); Aspartate Amino Transferase 18 U/L (5-37); Bilirubin Total 0.7 mg/dL (0.0-1.0); Blood Urea Nitrogen 23 mg/dL (9-16); Calcium 9.6 mg/dL (8.4-10.2); Carbon Dioxide 17 mmol/L (22-29); Chloride 94 mmol/L (96-108); Creatinine Clr Calc Pharmacy 31.5; Estimated Glomerular Filt Rate 32; Glucose Random 765 mg/dL (60-115); Potassium 4.3 mmol/L (3.3-5.1); Sodium 124 mmol/L (135-145); Total Protein 7.7 g/dL (6.5-8.0)
[2024-06-17] MEDS: Insulin Regular, Human 100 UNIT/ML 10 ML VIAL IVPUSH (06:52)
[2024-06-17] MEDS: Lactated Ringers 1,000 ML 999 ML IV (06:53)
--- NOTE | 2024-06-17 06:54 | ED.GENADULT ---
HPI - General Adult General Chief complaint: General Medical Stated complaint: have not slept for two days Time Seen by Provider: 06/17/24 06:30 Source: patient Mode of arrival: ambulatory Limitations: no limitations History of Present Illness ED Provider: Paul Baer PA-C HPI narrative: 73 yo male with history of HIV w/ undetectable viral load, hx DM2, arthritis, hx TN, CKD who presents to the ER for evaluation of insomnia and blurred vision. He states for the last 3 days he has not been able to sleep well; he goes to bed at 10pm and is up at 11pm for the rest of the night. He states he is going through increased stress. He is on multiple medications and admits to missing multiple meds including his insulin. He states he often forgets to check his sugars but that his A1c is 7.5%. He states his vision has been blurry, he is due for cataract surgery in 1 week. He has a hard time seeing the numbers on the insulin pens. He reports he has been very thirsty lately and urinating very frequently. He has had intermittent blurred vision as well. No numbness, tingling, weakness, chest pain, SOB, fever, chills, headache. MD complaint: insomnia Onset (ago): day(s) Relieving factors: none Exacerbating factors: none Associated symptoms: denies other symptoms Treatments prior to arrival: none Related Data Home Medications ?Medication ?Instructions ?Recorded ?Confirmed abacavir 600 mg-dolutegravir 50 1 tab PO DAILY 01/17/21 01/17/21 mg-lamivudine 300 mg tablet (Triumeq) amlodipine 10 mg tablet 1 tab PO DAILY 01/17/21 01/17/21 bupropion HCl 150 mg 24 hr tablet, 1 tab PO DAILY 01/17/21 01/17/21 extended release chlorthalidone 25 mg tablet 1 tab PO DAILY 01/17/21 01/17/21 dulaglutide 1.5 mg/0.5 mL 1 mg subcut QWEEK 01/17/21 01/17/21 subcutaneous pen injector (Trulicity) insulin degludec 200 unit/mL (3 110 unit subcut QPM 01/17/21 01/17/21 mL) subcutaneous pen (Tresiba FlexTouch U-200 insulin) lisinopril 40 mg tablet 1 tab PO DAILY 01/17/21 01/17/21 metoprolol succinate 100 mg 1 tab PO DAILY 01/17/21 01/17/21 tablet,extended release 24 hr pen needle, diabetic 32 gauge x 01/17/21 01/17/21 (BD Colette 2nd Gen Pen Needle) rosuvastatin 40 mg tablet 1 tab PO DAILY 01/17/21 01/17/21 tamsulosin 0.4 mg capsule 1 cap PO DAILY 01/17/21 01/17/21 testosterone 75 mg implant pellet mg 01/17/21 (Testopel) Previous Rx's ?Medication ?Instructions ?Recorded dexamethasone 6 mg tablet 6 mg PO DAILY 6 days #6 tabs 01/12/21 doxycycline hyclate 100 mg capsule 100 mg PO BID 7 days #14 caps 01/12/21 chlorpromazine 25 mg tablet 25 mg PO Q6H PRN hiccups #6 tabs 01/17/21 doxycycline hyclate 100 mg tablet 100 mg PO BID 14 days #28 tabs 01/18/21 metoclopramide HCl 10 mg tablet 10 mg PO Q6H PRN hiccups #30 tabs 01/19/21 Allergies Allergy/AdvReac Type Severity Reaction Status Date / Time No Known Allergies Allergy Mild NOT Verified 06/17/24 05:32 APPLICABLE Review of Systems Review of Systems: Yes all other systems are reviewed and are negative [facility] Past Medical History Medical History Appendicitis Coma Diabetes HIV (human immunodeficiency virus infection) Low testosterone Myocardial infarct Social History Social History Alcohol intake: current Patient Tobacco Use Status: Former Tobacco user Smoked in Last 30 Days: No Use of substances other than those prescribed or required for medical reasons: No Advance Directives: No Do you have a plan to hurt others: No Plan Physical Exam ED Vital Signs: Vital Signs - 24 hr 06/17/24 05:26 06/17/24 07:42 06/17/24 08:00 Temperature 97.1 F Pulse Rate 113 H 99 84 Respiratory Rate 18 16 Blood Pressure 184/117 H 170/106 H 165/103 H Pulse Oximetry 97 96 Oxygen Delivery Method Room Air Room Air 06/17/24 08:00 06/17/24 09:08 06/17/24 11:05 Temperature Pulse Rate 82 Respiratory Rate 16 16 Blood Pressure 165/103 H 154/92 H 146/89 H Pulse Oximetry Oxygen Delivery Method Room Air Room Air 06/17/24 13:26 06/17/24 13:35 Temperature 97 F 97 F Pulse Rate 78 78 Respiratory Rate 16 16 Blood Pressure 120/72 120/72 Pulse Oximetry 95 95 Oxygen Delivery Method Room Air Room Air BMI result Body Mass Index 26.6 Appearance: Alert elderly male laying in bed. Oriented X3. No acute distress. Head: normocephalic, atraumatic. Eyes: Pupils equal, round and reactive to light. ENT: Pharynx normal. No tonsillar swelling or exudate. Neck: Normal inspection. Neck supple. CVS: Normal heart rate and rhythm. Pulses normal. Respiratory: No respiratory distress. Breath sounds normal. Abdomen: Soft and nontender. +BS x4 Skin: Skin warm and dry. Normal skin color. Normal skin turgor. No rashes. Extremities: No lower extremity edema. No joint swelling. Limited ROM of the bilateral shoulders due to pain. Neuro/psych: Oriented X 3. No motor deficit. No sensory deficit. CN II-XII intact. Normal speech and cognition. Course Reevaluation(s) Reevaluation #1: Patient's glucose is improving with fluids and insulin. Concerned the patient's insomnia is due to his ongoing hyperglycemia and medication noncompliance, polyuria polydipsia. His underlying issue is medication compliance. Unable to accurately see the vials due to his cataract compounded by his hyperglycemia and blurred vision. Will consult case management to see if they can help him get visiting nursing in the home to help with medication administration. Additional subcu insulin has been ordered. Physician observation started at 11:20. Patient placed in physician observation because patient is awaiting Case management consult and improvement in sugars. At the time observation was started patient's vital signs were stable. Patient is alert and oriented. Neuro exam is non-focal. CV: RRR and lungs are clear. Will continue to monitor. Time: 11:20 Reevaluation #2: Patient's glucose now less than 300. Home health services and nursing care has been arranged. He has plenty of insulin at home. Comfortable discharge home with endocrinology referral, home VNA. Physician observation discontinued at this time. Patient does not meet medical necessity for admission to the hospital. Stable for discharge home. Time: 13:35 Medications Administered Discontinued Medications Generic Name Dose Route Start Last Admin Trade Name Joya PRN Reason Stop Dose Admin Lactated Ringer's 1,000 mls @ 999 mls/hr 06/17/24 06:45 06/17/24 08:12 Lr IV 06/17/24 07:45 Infused .Q1H1M LAUREL Infusion Insulin Glargine 25 unit 06/17/24 11:17 06/17/24 12:53 Insulin Glargine,Hum.Rec.Anlog 100 Unit/Ml 10 Ml Vial SUBCUT 06/17/24 11:18 25 unit ONCE ONE Administration Insulin Human Lispro 20 unit 06/17/24 09:28 06/17/24 09:53 Insulin Lispro 100 Unit/Ml 3 Ml Vial SUBCUT 06/17/24 09:29 20 unit ONCE ONE Administration Insulin Human Lispro 10 unit 06/17/24 11:16 06/17/24 11:51 Insulin Lispro 100 Unit/Ml 3 Ml Vial SUBCUT 06/17/24 11:17 10 unit ONCE ONE Administration Insulin Human Regular 5 unit 06/17/24 06:31 06/17/24 06:52 Insulin Regular, Human 100 Unit/Ml 10 Ml Vial IVPUSH 06/17/24 06:32 5 unit ONCE ONE Administration Lisinopril 20 mg 06/17/24 07:48 06/17/24 08:00 Lisinopril 20 Mg Tablet PO 06/17/24 07:49 20 mg ONCE ONE Administration Protocol Metoprolol Succinate 200 mg 06/17/24 07:48 06/17/24 08:00 Metoprolol Succinate Er 100 Mg Tab.Er.24h PO 06/17/24 07:49 200 mg ONCE ONE Administration Protocol Medical Decision Making Medical Decision Making MDM Narrative: 73 yo male with history of HIV w/ undetectable viral load, hx DM2, arthritis, hx TN, CKD who presents to the ER for evaluation of insomnia, blurred vision, polyuria, polydipsia in the setting of medication noncompliance. Patient is hypertensive on arrival, did not take his blood pressure medications today. No chest pain or headache. The vision changes are acute on chronic. He has a cataract that is being operated on soon. He states his vision difficulties have made it hard for him to see the insulin pens. He does not have nursing services at home. Lab workup shows severe hyperglycemia with sugars in the 700s. He has a mildly elevated anion gap and bicarb of 17. Low suspicion for DKA. Beta hydroxybutyrate and VBG were checked to ensure this which advocate against DKA. His sodium was low, due to pseudohyponatremia with severe hyperglycemia. He was treated with 1 L of normal saline along with IV insulin and subQ insulin. Patient had slowly improving glucose. Case management was consulted for VNA services. VNA services have been arranged. Glucose 261 after insulin. Comfortable discharge home with endocrinology referral, home services. Differential Diagnosis Differential Diagnoses: The differential diagnosis associated with the presentation includes DKA, HHS, diabetic hyperglycemia, pseudohyponatremia, LUCAS on CKD, stroke, medication noncompliant Admission/Observation Consideration of admission/observation: Escalation of care including admission/observation considered Lab Data MDM Lab Attestation statement: I reviewed the patient's lab results. Severe hyperglycemia with baseline CKD, pseudohyponatremia, mildly decreased bicarb with normal pH 06/17/24 05:54 06/17/24 05:54 Labs: Lab Results 06/17/24 06/17/24 06/17/24 Range/Units 05:39 05:44 05:54 WBC 8.9 (4.8-10.8) X10*3/uL RBC 5.10 (4.60-5.80) X10*6/uL Hgb 15.9 (14.0-18.0) g/dl Hct 44.8 (42.0-52.0) % MCV 87.8 (80.0-98.0) fL MCH 31.2 (27.0-33.0) pg MCHC 35.5 (31.0-36.0) g/dl RDW 12.7 (11.0-16.0) % Plt Count 194 (160-400) X10*3/uL MPV 10.3 (9.4-12.4) fL Immature Gran % (Auto) 0.6 H (0.0-0.4) % Neut % (Auto) 90.5 H (45-73) % Lymph % (Auto) 7.7 L (20-40) % [place] % (Auto) 1.1 L (2-11) % Eos % (Auto) 0.0 (0-4) % Baso % (Auto) 0.1 (0-2) % Lymph # (Auto) 0.7 L (1.2-4.9) X10*3/uL [place] # (Auto) 0.1 (0.1-1.2) X10*3/uL Eos # (Auto) 0.0 (0.0-0.4) X10*3/uL Baso # (Auto) 0.0 (0.0-0.2) X10*3/uL Abs Immat Gran (auto) 0.05 H (0.00-0.03) X10*3/uL Absolute Neuts (auto) 8.0 (2.0-8.3) x10*3/uL Absolute Nucleated RBC 0.000 (0.0-0.012) X10*3/uL Nucleated RBC % (auto) 0.0 (0.0-0.2) /100WBC Smear Tech's Comments VERIFIED VBG pH (7.32-7.43) VBG pCO2 mmHg VBG pO2 mmHg VBG HCO3 (22-26) mmol/L VBG O2 Saturation % VBG Base Excess mmol/L Sodium 124 L (135-145) mmol/L Potassium 4.3 (3.3-5.1) mmol/L Chloride 94 L (96-108) mmol/L Carbon Dioxide 17 L (22-29) mmol/L Anion Gap 17 (12-20) BUN 23 H (9-16) mg/dL Creatinine 2.05 H (0.5-1.4) mg/dL Estim Creat Clear Calc 31.5 Estimated GFR 32 POC Glucose > 600 H* > 600 H* (60-115) mg/dL Random Glucose 765 H* (60-115) mg/dL Calcium 9.6 (8.4-10.2) mg/dL Total Bilirubin 0.7 (0.0-1.0) mg/dL AST 18 (5-37) U/L ALT 21 (0-40) U/L Alkaline Phosphatase 117 (39-117) U/L Total Protein 7.7 (6.5-8.0) g/dL Albumin 4.2 (3.5-5.0) g/dL Beta-Hydroxybutyrate (0.02-0.27) mmol/L Urine Color Yellow Urine Appearance Clear Urine pH 5.5 (5.0-9.0) Ur Specific [place] >= 1.030 H (1.005-1.025) Urine Protein 100 (2+) H (Neg-Trace) mg/dL Urine Glucose (UA) >=1000 H (Negative) mg/dL Urine Ketones Negative (Negative) mg/dL Urine Blood Trace H (Negative) Urine Nitrite Negative (Negative) Ur Leukocyte Esterase Negative (Negative) Urine RBC 0-2 (0-2) /HPF Urine WBC 0-5 (0-5) /HPF Ur Squamous Epith Cells 0-2 (0-2) /HPF Urine Bacteria None Seen (None Seen) Hyaline Casts 0-2 (0-2) /LPF 06/17/24 06/17/24 06/17/24 Range/Units 07:10 07:16 09:06 WBC (4.8-10.8) X10*3/uL RBC (4.60-5.80) X10*6/uL Hgb (14.0-18.0) g/dl Hct (42.0-52.0) % MCV (80.0-98.0) fL MCH (27.0-33.0) pg MCHC (31.0-36.0) g/dl RDW (11.0-16.0) % Plt Count (160-400) X10*3/uL MPV (9.4-12.4) fL Immature Gran % (Auto) (0.0-0.4) % Neut % (Auto) (45-73) % Lymph % (Auto) (20-40) % Hend[place] % (Auto) (2-11) % Eos % (Auto) (0-4) % Baso % (Auto) (0-2) % Lymph # (Auto) (1.2-4.9) X10*3/uL [place] # (Auto) (0.1-1.2) X10*3/uL Eos # (Auto) (0.0-0.4) X10*3/uL Baso # (Auto) (0.0-0.2) X10*3/uL Abs Immat Gran (auto) (0.00-0.03) X10*3/uL Absolute Neuts (auto) (2.0-8.3) x10*3/uL Absolute Nucleated RBC (0.0-0.012) X10*3/uL Nucleated RBC % (auto) (0.0-0.2) /100WBC Smear Tech's Comments VBG pH 7.42 (7.32-7.43) VBG pCO2 31 mmHg VBG pO2 194 mmHg VBG HCO3 20 L (22-26) mmol/L VBG O2 Saturation 99.0 % VBG Base Excess -2.6 mmol/L Sodium (135-145) mmol/L Potassium (3.3-5.1) mmol/L Chloride (96-108) mmol/L Carbon Dioxide (22-29) mmol/L Anion Gap (12-20) BUN (9-16) mg/dL Creatinine (0.5-1.4) mg/dL Estim Creat Clear Calc Estimated GFR POC Glucose 486 H* (60-115) mg/dL Random Glucose (60-115) mg/dL Calcium (8.4-10.2) mg/dL Total Bilirubin (0.0-1.0) mg/dL AST (5-37) U/L ALT (0-40) U/L Alkaline Phosphatase (39-117) U/L Total Protein (6.5-8.0) g/dL Albumin (3.5-5.0) g/dL Beta-Hydroxybutyrate 0.47 H (0.02-0.27) mmol/L Urine Color Urine Appearance Urine pH (5.0-9.0) Ur Specific [place] (1.005-1.025) Urine Protein (Neg-Trace) mg/dL Urine Glucose (UA) (Negative) mg/dL Urine Ketones (Negative) mg/dL Urine Blood (Negative) Urine Nitrite (Negative) Ur Leukocyte Esterase (Negative) Urine RBC (0-2) /HPF Urine WBC (0-5) /HPF Ur Squamous Epith Cells (0-2) /HPF Urine Bacteria (None Seen) Hyaline Casts (0-2) /LPF 06/17/24 06/17/24 Range/Units 11:05 13:21 WBC (4.8-10.8) X10*3/uL RBC (4.60-5.80) X10*6/uL Hgb (14.0-18.0) g/dl Hct (42.0-52.0) % MCV (80.0-98.0) fL MCH (27.0-33.0) pg MCHC (31.0-36.0) g/dl RDW (11.0-16.0) % Plt Count (160-400) X10*3/uL MPV (9.4-12.4) fL Immature Gran % (Auto) (0.0-0.4) % Neut % (Auto) (45-73) % Lymph % (Auto) (20-40) % Hend[place] % (Auto) (2-11) % Eos % (Auto) (0-4) % Baso % (Auto) (0-2) % Lymph # (Auto) (1.2-4.9) X10*3/uL [place] # (Auto) (0.1-1.2) X10*3/uL Eos # (Auto) (0.0-0.4) X10*3/uL Baso # (Auto) (0.0-0.2) X10*3/uL Abs Immat Gran (auto) (0.00-0.03) X10*3/uL Absolute Neuts (auto) (2.0-8.3) x10*3/uL Absolute Nucleated RBC (0.0-0.012) X10*3/uL Nucleated RBC % (auto) (0.0-0.2) /100WBC Smear Tech's Comments VBG pH (7.32-7.43) VBG pCO2 mmHg VBG pO2 mmHg VBG HCO3 (22-26) mmol/L VBG O2 Saturation % VBG Base Excess mmol/L Sodium (135-145) mmol/L Potassium (3.3-5.1) mmol/L Chloride (96-108) mmol/L Carbon Dioxide (22-29) mmol/L Anion Gap (12-20) BUN (9-16) mg/dL Creatinine (0.5-1.4) mg/dL Estim Creat Clear Calc Estimated GFR POC Glucose 420 H* 261 H (60-115) mg/dL Random Glucose (60-115) mg/dL Calcium (8.4-10.2) mg/dL Total Bilirubin (0.0-1.0) mg/dL AST (5-37) U/L ALT (0-40) U/L Alkaline Phosphatase (39-117) U/L Total Protein (6.5-8.0) g/dL Albumin (3.5-5.0) g/dL Beta-Hydroxybutyrate (0.02-0.27) mmol/L Urine Color Urine Appearance Urine pH (5.0-9.0) Ur Specific [place] (1.005-1.025) Urine Protein (Neg-Trace) mg/dL Urine Glucose (UA) (Negative) mg/dL Urine Ketones (Negative) mg/dL Urine Blood (Negative) Urine Nitrite (Negative) Ur Leukocyte Esterase (Negative) Urine RBC (0-2) /HPF Urine WBC (0-5) /HPF Ur Squamous Epith Cells (0-2) /HPF Urine Bacteria (None Seen) Hyaline Casts (0-2) /LPF External Record Review External record reviewed: Outpatient record, Prior outpatient labs and Prior outpatient radiology Prescription Management I considered prescription management with: Other (insulin, trazodone) Chronic Conditions Patient?s care impacted by: Diabetes Social Determinants Patient?s care significantly limited by Social Determinants of Health including: Problems related to primary support group and Other Social Determinant of Health Critical Care Time Critical Care Time Critical Care Time: Yes Total Critical Care Time: 45 Attestation: I have personally provided critical care time exclusive of time spent on separately billable procedures. Time includes review of lab data, radiology results, discussion with consultants, re-evaluation after multiple doses of insulin and monitoring for potential decompensation. Intervention performed as documented. Discharge Plan Discharge Clinical Impression: Hyperglycemia Patient Disposition: Home, Self-Care Instructions: Diabetic Hyperglycemia (ED) Additional Instructions: Your lab workup today showed severe hyperglycemia without any evidence of severe diabetic emergency. Your chronic kidney disease was at baseline. Your given IV fluids and insulin while in the ER. Your symptoms of insomnia and difficulty sleeping are most likely due to your poorly-controlled diabetes and elevated blood sugar. It is very important that you continue all of your prescribed medications including her insulin. Recommend checking her blood sugars 4 times a day, before meals and at bedtime. It is very important that you follow-up with your primary care doctor for further evaluation and treatment. You may need additional insulin for better diabetes control. If your diabetes is left uncontrolled you may have progressing kidney disease and end up on dialysis. Recommend following up with endocrinology. Name number below. Call for an appointment. Recommend trial of melatonin 5 mg for sleep. Follow up with your doctor. If you develop new or worsening symptoms call 911 or come back to the ER for further evaluation. Prescriptions: No Action metoprolol succinate 100 mg tablet extended release 24 hr 1 tab PO DAILY Testopel 75 mg pellet chlorthalidone 25 mg tablet 1 tab PO DAILY tamsulosin 0.4 mg capsule 1 cap PO DAILY amlodipine 10 mg tablet 1 tab PO DAILY lisinopril 40 mg tablet 1 tab PO DAILY rosuvastatin 40 mg tablet 1 tab PO DAILY bupropion HCl 150 mg tablet extended release 24 hr 1 tab PO DAILY (DME) pen needle, diabetic [BD Colette 2nd Gen Pen Needle] 32 gauge x 5/32 needle MISCELLANEOUS DAILY Tresiba FlexTouch U-200 200 unit/mL (3 mL) insulin pen 110 unit subcut QPM Triumeq 600-50-300 mg tablet 1 tab PO DAILY Trulicity 1.5 mg/0.5 mL pen injector 1 mg subcut QWEEK chlorpromazine 25 mg tablet 25 mg PO Q6H PRN (Reason: hiccups) Qty: 6 0RF doxycycline hyclate 100 mg tablet 100 mg PO BID 14 Days Qty: 28 0RF metoclopramide HCl 10 mg tablet 10 mg PO Q6H PRN (Reason: hiccups) Qty: 30 0RF doxycycline hyclate 100 mg capsule 100 mg PO BID 7 Days Qty: 14 0RF dexamethasone 6 mg tablet 6 mg PO DAILY 6 Days Qty: 6 0RF Referrals: [facility] [place] [facility] [Provider Group] (poorly controlled DM) [facility] [Outside] (Agency will call to schedule visit. ) Bailey Ingram MD [Primary Care Provider] - Interventions: ED Discharge Assessment Last Done: 06/17/24 13:35 Discharge Date/Time: 06/17/24 13:37 Print Language: Belarusian
[2024-06-17 07:20] LABS: VBG Base Excess -2.6 mmol/L; VBG HCO3 20 mmol/L (22-26); VBG pCO2 31 mmHg; VBG pH 7.42 (7.32-7.43); VBG pO2 194 mmHg
[2024-06-17 07:28] LABS: Beta-Hydroxybutyrate 0.47 mmol/L (0.02-0.27)
[2024-06-17] MEDS: Metoprolol Succinate ER 100 MG TAB.ER.24H 200 MG PO (08:00)
[2024-06-17] MEDS: lisinopriL 20 MG TABLET PO (08:00)
[2024-06-17 08:21] LABS: Venous Blood Gas Refer to POC result
[2024-06-17 09:09] LABS: Glucose, Whole Blood 486 mg/dL (60-115)
[2024-06-17] MEDS: Insulin Lispro 100 UNIT/ML 3 ML VIAL 20 UNIT SUBCUT (09:53)
--- NOTE | 2024-06-17 11:01 | PC.NURSE ---
CBG lower-requesting food-Pt able to tolerate diet- sandwich and drink provided- second dose of insulin given- pt to wear the socks that were provided
[2024-06-17 11:09] LABS: Glucose, Whole Blood 420 mg/dL (60-115)
[2024-06-17] MEDS: Insulin Lispro 100 UNIT/ML 3 ML VIAL 10 UNIT SUBCUT (11:51)
[2024-06-17] MEDS: Insulin Glargine,Hum.rec.anlog 100 UNIT/ML 10 ML VIAL 25 UNIT SUBCUT (12:53)
--- NOTE | 2024-06-17 13:05 | MHC.CM.ED ---
Received case management consult from Harleen AMBROCIO. Patient came to the ER with multiple complaints. Patient's blood sugar is currently elevated. Patient is active with [facility]. Spoke with Liset of [facility]. Patient only became active with [facility] in April. first assistant manager is in the process of getting HOME [employer]ISH[employer] SALES REPRESENTATIVE approved. Copy of HCP obtained from Liset. Liset will authorize VNA for half-way. Met with patient in regards to discharge planning. Patient lives alone, ambulates with a cane at home and had no services prior to coming to the ER. PCP verified. Patient has a med minder provided by [facility] Medical [employer] Liaison. However he is having difficulty filling it. His sister has been trying to help him. Patient has vision issues d/t cataracts. Patient is scheduled to have cataract surgery next week. Patient also states he has memory issues. He tried to get bubble packs from [facility]. However, patient states he is on over 20 meds and it would cost him $3 per prescription per month. That would be an additional $60 per month and patient is on a fixed income. Patient aware that [facility] has accepted him and will provide half-way for assistance with medication administration. Patient states his vehicle is in the ER parking lot and he will drive himself home when medically stable. Patient, Kamilla SALGADO and Harleen AMBROCIO aware and agreeable to d/c plan. Continue to monitor for d/c needs.
[2024-06-17 13:24] LABS: Glucose, Whole Blood 261 mg/dL (60-115)
== END 2024-06-17 13:37 | disposition home or self-care (01) ==
PROVIDERS: Physician Assistant; Emergency Provider Emergency Medicine; PCP Family Medicine
DX: E11.65 Type 2 diabetes mellitus with hyperglycemia (principal); G47.00 Insomnia, unspecified; B20 Human immunodeficiency virus [HIV] disease; Z79.84 Long term (current) use of oral hypoglycemic drugs; Z79.85 Long-term (current) use of injectable non-insulin antidiabetic drugs
CPT/HCPCS: 36415; 80053; 81001; 82010; 82803; 82947; 85025; 96361; 96374; 99284; J7120

== ENCOUNTER 2024-06-21 18:19 | Emergency (ER) | payer OTHER, SELFPAY ==
[2022-03-27 08:59] VITALS: BP 136/70; BMI 27.3
--- NOTE | ~2024-06-21 | XR_ITS ---
EXAMINATION: XR CHEST CLINICAL INFORMATION: Infectious workup COMPARISON: 01/17/2021 TECHNIQUE: Frontal view of the chest was obtained. FINDINGS: Status post median sternotomy and CABG. Normal cardiomediastinal silhouette. Clear lungs without consolidation, pleural effusion or pneumothorax. XR/XR chest 1V IMPRESSION: No acute cardiopulmonary process. Electronically signed by: Mario Vasquez MD 06/21/2024 10:41 PM EDT RP
--- NOTE | ~2024-06-21 | CT_ITS ---
EXAMINATION: EXAMINATION: CT ANGIOGRAM CHEST, ABDOMEN AND PELVIS CLINICAL INFORMATION: Pain. Concern for dissection COMPARISON: None available. TECHNIQUE: Multiple axial images were obtained through the chest, abdomen and pelvis after the administration of 85 mL of Omnipaque 350 intravenous contrast. Extensive vascular post-processing including two-dimensional and three-dimensional reformatted images were created and reviewed on an independent workstation. This CT examination was performed using dose optimization techniques as appropriate, variously including the following: *Automated exposure control *Adjustment of mA and/or kV according to patient size (this includes techniques or standardized protocols for targeted exams where dose is matched to indication/reason for exam; i.e. extremities or head) *Use of iterative reconstruction technique DLP: 585 mGy-cm FINDINGS: VASCULAR: There is mild atherosclerotic plaque of the aortic arch, descending thoracic aorta and abdominal aorta. There is no aneurysm or dissection. The mesenteric, iliac and renal vessels are also patent. CHEST: Lungs: The lungs are clear. Mediastinum: The heart is normal in size. No pericardial effusion. There is mild to moderate coronary artery calcification. There is no significant lymph node enlargement. Axilla/Chest Wall: Unremarkable. ABDOMEN: Liver, Gallbladder and Biliary Tree: There are nonspecific small hypodensities right lobe of the liver possibly small cysts. There is no intrahepatic biliary duct dilatation. Multiple gallstones are noted within a nondistended gallbladder. Pancreas: Unremarkable. Spleen: Unremarkable. Adrenal Glands: Unremarkable. Kidneys and Ureters: The kidneys are normal in size, shape and position. There is no hydronephrosis. Bladder: Unremarkable. Gastrointestinal Tract: There are diverticula of the descending and the sigmoid colon without diverticulitis. The appendix is not identified. Abdominal Wall: No significant hernia is appreciated. Lymph Nodes: Normal. Pelvic Viscera: There is mild prostate gland hypertrophy. Free Fluid: None. OSSEOUS STRUCTURES: There is diffuse thoracolumbar degenerative change. CT/CT angio abdomen pelvis IMPRESSION: 1. No evidence of aneurysm or dissection. 2. Cholelithiasis. 3. Diverticulosis without diverticulitis. 4. Degenerative changes of the thoracolumbar spine. Fleischner guidelines were followed. Electronically signed by: Bernard Tripp MD 06/22/2024 01:06 AM EDT
[2024-06-21 18:37] VITALS: BP 148/97; PULSE 68; RESP 18; TEMP 36.8; O2SAT 98; BMI 26.6
--- NOTE | 2024-06-21 18:40 | ECG_ITS ---
Test Reason : WEAKNESS Blood Pressure : / mmHG Vent. Rate : 062 BPM Atrial Rate : 062 BPM P-R Int : 140 ms QRS Dur : 096 ms QT Int : 414 ms P-R-T Axes : 004 -48 098 degrees QTc Int : 420 ms Artifact in tracing Normal sinus rhythm with sinus arrhythmia Left axis deviation Incomplete right bundle branch block Nonspecific ST and T wave abnormality Abnormal ECG When compared with ECG of 17-JAN-2021 04:15, Incomplete right bundle branch block is now Present Referred By: Steffen Britt Electronically Signed By:EUGENIA HINKLE
--- NOTE | 2024-06-21 18:42 | ED_ITS ---
HPI - General Adult General Chief complaint: Recheck/Abnormal Lab/Rx Stated complaint: sugar levels off Time Seen by Provider: 06/21/24 21:55 History of Present Illness ED Provider: Zacarias HPI narrative: 73-year-old male with past medical history of HIV, DM, [place] - patient states that he has been experiencing proximally to 3 days of hiccups, nausea, regurgitation. He states he has not been able to keep anything down. Patient also endorses epigastric pain. - pt denies headache, neck pain, chest pain, sob, fevers, chills, urinary sxs Related Data Home Medications ?Medication ?Instructions ?Recorded ?Confirmed abacavir 600 mg-dolutegravir 50 1 tab PO DAILY 01/17/21 01/17/21 mg-lamivudine 300 mg tablet (Triumeq) amlodipine 10 mg tablet 1 tab PO DAILY 01/17/21 01/17/21 bupropion HCl 150 mg 24 hr tablet, 1 tab PO DAILY 01/17/21 01/17/21 extended release chlorthalidone 25 mg tablet 1 tab PO DAILY 01/17/21 01/17/21 dulaglutide 1.5 mg/0.5 mL 1 mg subcut QWEEK 01/17/21 01/17/21 subcutaneous pen injector (Trulicity) insulin degludec 200 unit/mL (3 110 unit subcut QPM 01/17/21 01/17/21 mL) subcutaneous pen (Tresiba FlexTouch U-200 insulin) lisinopril 40 mg tablet 1 tab PO DAILY 01/17/21 01/17/21 metoprolol succinate 100 mg 1 tab PO DAILY 01/17/21 01/17/21 tablet,extended release 24 hr pen needle, diabetic 32 gauge x 01/17/21 01/17/2132 (BD Colette 2nd Gen Pen Needle) rosuvastatin 40 mg tablet 1 tab PO DAILY 01/17/21 01/17/21 tamsulosin 0.4 mg capsule 1 cap PO DAILY 01/17/21 01/17/21 testosterone 75 mg implant pellet mg 01/17/21 (Testopel) Previous Rx's ?Medication ?Instructions ?Recorded dexamethasone 6 mg tablet 6 mg PO DAILY 6 days #6 tabs 01/12/21 doxycycline hyclate 100 mg capsule 100 mg PO BID 7 days #14 caps 01/12/21 chlorpromazine 25 mg tablet 25 mg PO Q6H PRN hiccups #6 tabs 01/17/21 doxycycline hyclate 100 mg tablet 100 mg PO BID 14 days #28 tabs 01/18/21 metoclopramide HCl 10 mg tablet 10 mg PO Q6H PRN hiccups #30 tabs 01/19/21 famotidine 20 mg tablet (Pepcid) 20 mg PO BID 14 days #28 tabs 06/22/24 Allergies Allergy/AdvReac Type Severity Reaction Status Date / Time No Known Allergies Allergy Mild NOT Verified 06/21/24 18:41 APPLICABLE Review of Systems 2 Review of Systems: Patient endorses hiccups, nausea, regurgitation, epigastric pain Patient denies headaches, chest pain, shortness of breath, fevers, chills, diarrhea, urinary symptoms Yes all other systems are reviewed and are negative [facility] Past Medical History Medical History Appendicitis Coma Diabetes HIV (human immunodeficiency virus infection) Low testosterone Myocardial infarct Social History Social History Alcohol intake: current Alcohol intake frequency: does not drink Patient Tobacco Use Status: Former Tobacco user Smoked in Last 30 Days: No Use of substances other than those prescribed or required for medical reasons: No Advance Directives: Yes Advance Directives on File: Yes Advance Directives Date on File: 06/17/24 Physical Exam ED Vital Signs: Vital Signs - 24 hr 06/21/24 23:55 06/22/24 02:35 06/22/24 02:55 Temperature 97.8 F 97.9 F 97.9 F Pulse Rate 66 69 69 Respiratory Rate 14 16 16 Blood Pressure 135/82 138/86 138/86 Pulse Oximetry 95 97 97 Oxygen Delivery Method Room Air Room Air Room Air BMI result Body Mass Index 26.6 lungs ctab ns1s2 rrr Epigastric tenderness to palpation; had an otherwise soft and nondistended Bedside echo notable for aortic root of 4.3. Patient unable to tell me whether he has a history of large aorta Course Course Course Narrative: RME: done by CRISTÓBAL Britt. 73 yold male presents to the ED for constant hiccuping, acid burning sensation in abdomen, and nausea. Patient denies any fever or chills. Abdomen benign. Neuro exam intact. Medications Administered Discontinued Medications Generic Name Dose Route Start Last Admin Trade Name Joya PRN Reason Stop Dose Admin Famotidine 20 mg 06/21/24 22:53 06/21/24 22:59 Famotidine/Pf 20 Mg/2 Ml Vial IVPUSH 06/21/24 22:54 20 mg ONCE ONE Administration Sodium Chloride 500 mls @ 500 mls/hr 06/21/24 23:00 06/22/24 00:55 Ns IV 06/21/24 23:59 Infused .Q1H LAUREL Infusion Iohexol 85 ml 06/21/24 23:28 06/21/24 23:28 Iohexol 350 Mg/Ml 100 Ml Infus..Btl IV 06/21/24 23:29 85 ml ONCE ONE Administration Metoclopramide HCl 10 mg 06/21/24 22:37 06/21/24 22:59 Metoclopramide Hcl 10 Mg/2 Ml Vial IVPUSH 06/21/24 22:38 10 mg ONCE ONE Administration Medical Decision Making Medical Decision Making MDM Narrative: 73-year-old male presenting with to 3 days of hiccups, regurgitation and nausea. I have concerns for the following; acid reflux, benign hiccups, aortic dissection - considered CVA however less likely given pt has no neuro deficits. Patient denies feeling unsteady on feet and walked here in the ED with steady gait - Pepcid and Reglan ordered - given large aorta on bedside echo I ordered dissection study - dissection study ordered and negative for acute dissection on radiologist's impression however cholelithiasis and diverticulosis was appreciated. I do not notice large hernia on my viewing - patient is tolerating p.o. here in the emergency department - given largely unremarkable workup I suspect that he may be experiencing acid reflux. I sent a prescription for Pepcid and instructed to follow up with his primary care provider. I gave him return precautions Differential Diagnosis Differential Diagnoses: The differential diagnosis associated with the presentation includes Hiccups, acid reflux Lab Data 06/21/24 18:59 06/21/24 18:59 Labs: Lab Results 06/21/24 06/21/24 06/21/24 Range/Units 18:38 18:59 21:03 WBC 16.1 H (4.8-10.8) X10*3/uL RBC 5.67 (4.60-5.80) X10*6/uL Hgb 17.5 (14.0-18.0) g/dl Hct 51.0 (42.0-52.0) % MCV 89.9 (80.0-98.0) fL MCH 30.9 (27.0-33.0) pg MCHC 34.3 (31.0-36.0) g/dl RDW 12.9 (11.0-16.0) % Plt Count 206 (160-400) X10*3/uL MPV 10.0 (9.4-12.4) fL Immature Gran % (Auto) 1.1 H (0.0-0.4) % Neut % (Auto) 81.5 H (45-73) % Lymph % (Auto) 10.8 L (20-40) % Grainger % (Auto) 6.3 (2-11) % Eos % (Auto) 0.1 (0-4) % Baso % (Auto) 0.2 (0-2) % Lymph # (Auto) 1.8 (1.2-4.9) X10*3/uL Grainger # (Auto) 1.0 (0.1-1.2) X10*3/uL Eos # (Auto) 0.0 (0.0-0.4) X10*3/uL Baso # (Auto) 0.0 (0.0-0.2) X10*3/uL Abs Immat Gran (auto) 0.17 H (0.00-0.03) X10*3/uL Absolute Neuts (auto) 13.2 H (2.0-8.3) x10*3/uL Absolute Nucleated RBC 0.000 (0.0-0.012) X10*3/uL Nucleated RBC % (auto) 0.0 (0.0-0.2) /100WBC PT 11.5 (10.9-12.4) SEC INR 1.0 (0.9-1.1) APTT 31.4 (26.0-36.8) SEC VBG pH (7.32-7.43) VBG pCO2 mmHg VBG pO2 mmHg VBG HCO3 (22-26) mmol/L VBG O2 Saturation % VBG Base Excess mmol/L Sodium 136 (135-145) mmol/L Potassium 4.2 (3.3-5.1) mmol/L Chloride 102 (96-108) mmol/L Carbon Dioxide 26 (22-29) mmol/L Anion Gap 12 (12-20) BUN 36 H (9-16) mg/dL Creatinine 1.64 H (0.5-1.4) mg/dL Estim Creat Clear Calc 40.7 Estimated GFR 42 POC Glucose 312 H (60-115) mg/dL Random Glucose 295 H (60-115) mg/dL Calcium 9.5 (8.4-10.2) mg/dL Total Bilirubin 0.5 (0.0-1.0) mg/dL AST 16 (5-37) U/L ALT 24 (0-40) U/L Alkaline Phosphatase 90 (39-117) U/L Troponin I High Sens 14.7 15.2 (<3.5-35.0) ng/L Total Protein 7.4 (6.5-8.0) g/dL Albumin 4.1 (3.5-5.0) g/dL Lipase 119 H (8-78) U/L Beta-Hydroxybutyrate 0.05 (0.02-0.27) mmol/L Urine Color Yellow Urine Appearance Clear Urine pH 5.5 (5.0-9.0) Ur Specific [place] >= 1.030 H (1.005-1.025) Urine Protein 100 (2+) H (Neg-Trace) mg/dL Urine Glucose (UA) >=1000 H (Negative) mg/dL Urine Ketones Negative (Negative) mg/dL Urine Blood Trace H (Negative) Urine Nitrite Negative (Negative) Ur Leukocyte Esterase Negative (Negative) Urine RBC 0-2 (0-2) /HPF Urine WBC 0-5 (0-5) /HPF Ur Squamous Epith Cells 0-2 (0-2) /HPF Urine Bacteria None Seen (None Seen) Hyaline Casts 0-2 (0-2) /LPF 06/21/24 Range/Units 22:25 WBC (4.8-10.8) X10*3/uL RBC (4.60-5.80) X10*6/uL Hgb (14.0-18.0) g/dl Hct (42.0-52.0) % MCV (80.0-98.0) fL MCH (27.0-33.0) pg MCHC (31.0-36.0) g/dl RDW (11.0-16.0) % Plt Count (160-400) X10*3/uL MPV (9.4-12.4) fL Immature Gran % (Auto) (0.0-0.4) % Neut % (Auto) (45-73) % Lymph % (Auto) (20-40) % Grainger % (Auto) (2-11) % Eos % (Auto) (0-4) % Baso % (Auto) (0-2) % Lymph # (Auto) (1.2-4.9) X10*3/uL Grainger # (Auto) (0.1-1.2) X10*3/uL Eos # (Auto) (0.0-0.4) X10*3/uL Baso # (Auto) (0.0-0.2) X10*3/uL Abs Immat Gran (auto) (0.00-0.03) X10*3/uL Absolute Neuts (auto) (2.0-8.3) x10*3/uL Absolute Nucleated RBC (0.0-0.012) X10*3/uL Nucleated RBC % (auto) (0.0-0.2) /100WBC PT (10.9-12.4) SEC INR (0.9-1.1) APTT (26.0-36.8) SEC VBG pH 7.43 (7.32-7.43) VBG pCO2 34 mmHg VBG pO2 68 mmHg VBG HCO3 23 (22-26) mmol/L VBG O2 Saturation 92.0 % VBG Base Excess -0.3 mmol/L Sodium (135-145) mmol/L Potassium (3.3-5.1) mmol/L Chloride (96-108) mmol/L Carbon Dioxide (22-29) mmol/L Anion Gap (12-20) BUN (9-16) mg/dL Creatinine (0.5-1.4) mg/dL Estim Creat Clear Calc Estimated GFR POC Glucose (60-115) mg/dL Random Glucose (60-115) mg/dL Calcium (8.4-10.2) mg/dL Total Bilirubin (0.0-1.0) mg/dL AST (5-37) U/L ALT (0-40) U/L Alkaline Phosphatase (39-117) U/L Troponin I High Sens (<3.5-35.0) ng/L Total Protein (6.5-8.0) g/dL Albumin (3.5-5.0) g/dL Lipase (8-78) U/L Beta-Hydroxybutyrate (0.02-0.27) mmol/L Urine Color Urine Appearance Urine pH (5.0-9.0) Ur Specific [place] (1.005-1.025) Urine Protein (Neg-Trace) mg/dL Urine Glucose (UA) (Negative) mg/dL Urine Ketones (Negative) mg/dL Urine Blood (Negative) Urine Nitrite (Negative) Ur Leukocyte Esterase (Negative) Urine RBC (0-2) /HPF Urine WBC (0-5) /HPF Ur Squamous Epith Cells (0-2) /HPF Urine Bacteria (None Seen) Hyaline Casts (0-2) /LPF Discharge Plan Discharge Clinical Impression: Hiccups, Acid reflux Patient Disposition: Home, Self-Care Additional Instructions: Please follow-up with your primary care provider in the next 24-48 hours 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 and take as instructed If you develop any new or worsening symptoms please return to the emergency department Prescriptions: New famotidine [Pepcid] 20 mg tablet 20 mg PO BID 14 Days Qty: 28 0RF No Action metoprolol succinate 100 mg tablet extended release 24 hr 1 tab PO DAILY Testopel 75 mg pellet chlorthalidone 25 mg tablet 1 tab PO DAILY tamsulosin 0.4 mg capsule 1 cap PO DAILY amlodipine 10 mg tablet 1 tab PO DAILY lisinopril 40 mg tablet 1 tab PO DAILY rosuvastatin 40 mg tablet 1 tab PO DAILY bupropion HCl 150 mg tablet extended release 24 hr 1 tab PO DAILY (DME) pen needle, diabetic [BD Colette 2nd Gen Pen Needle] 32 gauge x 5/32 needle MISCELLANEOUS DAILY Tresiba FlexTouch U-200 200 unit/mL (3 mL) insulin pen 110 unit subcut QPM Triumeq 600-50-300 mg tablet 1 tab PO DAILY Trulicity 1.5 mg/0.5 mL pen injector 1 mg subcut QWEEK chlorpromazine 25 mg tablet 25 mg PO Q6H PRN (Reason: hiccups) Qty: 6 0RF doxycycline hyclate 100 mg tablet 100 mg PO BID 14 Days Qty: 28 0RF metoclopramide HCl 10 mg tablet 10 mg PO Q6H PRN (Reason: hiccups) Qty: 30 0RF doxycycline hyclate 100 mg capsule 100 mg PO BID 7 Days Qty: 14 0RF dexamethasone 6 mg tablet 6 mg PO DAILY 6 Days Qty: 6 0RF Interventions: ED Discharge Assessment Last Done: 06/22/24 02:55 Discharge Date/Time: 06/22/24 02:55 Print Language: Swedish
[2024-06-21 19:12] LABS: MANUAL DIFF FLAG NO
[2024-06-21 19:13] LABS: Basophils Percent Auto 0.2 % (0-2); Eosinophils Percent Auto 0.1 % (0-4); Hemoglobin 17.5 g/dl (14.0-18.0); Imm Gran Abs Auto 0.17 X10*3/uL (0.00-0.03); Imm Gran Pct Auto 1.1 % (0.0-0.4); Lymphocytes Absolute Auto 1.8 X10*3/uL (1.2-4.9); Lymphocytes Percent Auto 10.8 % (20-40); Mean Corpuscular HGB Conc 34.3 g/dl (31.0-36.0); Mean Corpuscular Hemoglobin 30.9 pg (27.0-33.0); Mean Corpuscular Volume 89.9 fL (80.0-98.0); Monocytes Percent Auto 6.3 % (2-11); Neutrophils Absolute Auto 13.2 x10*3/uL (2.0-8.3); Neutrophils Percent Auto 81.5 % (45-73); Platelet Count 206 X10*3/uL (160-400); Red Blood Count 5.67 X10*6/uL (4.60-5.80); Red Cell Distribution Width 12.9 % (11.0-16.0); White Blood Count 16.1 X10*3/uL (4.8-10.8)
[2024-06-21 19:14] LABS: Appearance Urine Clear; Color Urine Yellow; Glucose Urine UA >=1000 mg/dL (Negative); Leukocyte Esterase Urine Negative (Negative); Nitrite Urine Negative (Negative); PH 5.5 (5.0-9.0); Specific Gravity - Urine >= 1.030 (1.005-1.025); UMIC TRIGGER UACC YES; Urine Blood Trace (Negative); Urine Ketones Negative (Negative); Urine Protein 100 (2+) mg/dL (Neg-Trace)
[2024-06-21 19:19] LABS: Bacteria Urine None Seen (None Seen); Hyaline Casts Urine 0-2 /LPF (0-2); RBC Urine 0-2 /HPF (0-2); Squamous Epithelial Cell Urine 0-2 /HPF (0-2); WBC Urine 0-5 /HPF (0-5)
[2024-06-21 19:21] LABS: Prothrombin Time 11.5 SEC (10.9-12.4)
[2024-06-21 19:23] LABS: Partial Thromboplastin Time 31.4 SEC (26.0-36.8)
[2024-06-21 19:28] LABS: Alanine Aminotransferase 24 U/L (0-40); Albumin Level 4.1 g/dL (3.5-5.0); Alkaline Phosphatase 90 U/L (39-117); Anion Gap 12 (12-20); Aspartate Amino Transferase 16 U/L (5-37); Beta-Hydroxybutyrate 0.05 mmol/L (0.02-0.27); Bilirubin Total 0.5 mg/dL (0.0-1.0); Blood Urea Nitrogen 36 mg/dL (9-16); Calcium 9.5 mg/dL (8.4-10.2); Carbon Dioxide 26 mmol/L (22-29); Chloride 102 mmol/L (96-108); Creatinine Clr Calc Pharmacy 40.7; Estimated Glomerular Filt Rate 42; Glucose Random 295 mg/dL (60-115); Lipase 119 U/L (8-78); Potassium 4.2 mmol/L (3.3-5.1); Sodium 136 mmol/L (135-145); Total Protein 7.4 g/dL (6.5-8.0)
[2024-06-21 19:35] LABS: Troponin-I High Sensitivity 14.7 ng/L (<3.5-35.0)
--- OUTSIDE RECORDS SUMMARY | 2024-06-21 20:42 | XMS_ITS | Continuity of Care Document ---
Author Organization [facility] Address [address] [place] [address]- Care Team Providers Care Motor Pool Clerk Name Role Phone Maritza CABEZAS, Bailey Goss Primary Care Physic pierre Encounter [facility] Date(s): 10/29/22 - 11/28/22 [facility] [address] [place] [address]- Allergies, Adverse Reactions, Alerts No Known Allergies Immunizations Given and Recorded Vaccine Date Status Refusal Reason SARS-CoV-2 mRNA ([id number]) vax 10/18/21 Given influenza virus vaccine, inactivated [...] 23-valent vaccine 7 05/28/09 Given 1Result Comment: [facility]: [id number] [address]Admin Note: [address] Dr Granado 3Admin Note: Dr Granado 4Admin Note: [facility] 5Result Comment: Lot [id number] 6Admin Note: dr hall 7Result Comment: [employer] [id number] Medications amLODIPine 2.5 mg oral tablet 2.5 mg, 1, tablet, By Mouth, Daily, # 90 tablet, Refills 3, Tot. Refills 3, Maintenance, 10/03/22 15:00:00 EST, Route to Pharmacy Electronically, [facility]/pharmacy #[id number], Partial fill upon patient requestif the prescription is for a schedule II opioid sandip... Start Date: 10/03/22 Status: Ordered Aricept 5 mg oral tablet 5 mg, 1, tablet, By Mouth, Daily at bedtime, For memory loss, # 90 tablet, Refills 3, Tot. Refills 3, Maintenance, 08/17/22 17:19:00 EST, Route to Pharmacy Electronically, [facility]/pharmacy #[id number], Partialfill upon patient request if the [...] each, 8 Refills, Maintenance, 04/17/22 12:47:00 EDT, [facility]/pharmacy #[id number], Partial fill upon patient request if the prescription is for... Start Date: 04/17/22 Stop Date: 01/12/23 Status: Ordered Pen [place], 31 G x 5 mm BD Ultra [...] Replace Required Details, Route to Pharmacy Electronically, [facility]/pharmacy #[id number], 175, cm, 10/03/22 14:39:00 EST... Start Date: 10/29/22 Status: Ordered Testopel = 300 mg, Subcutaneous Infusion, Every 3 months, 0 Refills, Maintenance, 03/26/15 23:08:01 Start Date: 03/26/15 Status: Ordered Tresiba FlexTouch 200 units/mL subcutaneous solution See Instructions, Take 22 units daily at lunch. E11.65, # 9 mL, 10 Refills, Maintenance, 05/28/22 13:10:00 EDT, [facility]/pharmacy #[id number], 175, cm, 02/06/22 16:03:00 EDT, Height, [...] Care Team Personnel Name: Nuzhat Sainz Position: [facility] Outreach Member Role: Lifetime Consulting Physician Name: Maritza CABEZAS, Bailey Goss Position: [facility] Primary Care Physician Member Role: PCP Address: Address: [address], [place] [address]- Name: Derik Gaines MD Position: [facility] Renal MD Member Role: Lifetime Consulting Physician Address: Address: [address] [place] [address] [address] [facility] [place] [place] [address]- Name: Jazmin Florez RN Position: [facility] RN Supv Member Role: Primary Care Nurse Name: Kiana Castelan Position: [facility] Outreach Member Role: Lifetime Consulting Physician Name: Bayron Brandt DO Position: [facility] Renal MD Member Role: Lifetime Consulting Physician Address: Address: [address] [facility] [place] [place] [address]- Name: Amie Caldwell PharmD Position: [facility] Associate Professional Member Role: Lifetime Consulting Provider Address: Address: [address] [facility] [place] [address]- [place] Name: Eric Garcia RN Position: [facility] RN Member Role: Primary Care Nurse Name: Jaclyn Schulte RN Position: [facility] RN Member Role: Primary Care Nurse Name: Kavon Liu MD Position: Reference Physician Member Role: Lifetime Consulting Physician Address: Address: [address] [place] [address] [id number] [facility] [place] [address]- Care Team Related Persons Name: DANA PERALES Address: home [address] [place] [address] Name: BO PERALES Address: home [address] [place] [address] Name: DANA BALTAZAR Address: home [address] [place] [address] Name: NALDO AVALOS Address: home [address] [place] [address] Name: NALDO BARNARD Address: home [address] [place] [address]
[2024-06-21 20:57] VITALS: BP 135/96; PULSE 75; RESP 16; O2SAT 96
[2024-06-21 21:34] LABS: Troponin-I High Sensitivity 15.2 ng/L (<3.5-35.0)
--- NOTE | 2024-06-21 22:07 | ECG_ITS ---
Test Reason : REPEAT EKG Blood Pressure : / mmHG Vent. Rate : 071 BPM Atrial Rate : 071 BPM P-R Int : 138 ms QRS Dur : 098 ms QT Int : 408 ms P-R-T Axes : 045 -49 083 degrees QTc Int : 443 ms Artifact in tracing Normal sinus rhythm with sinus arrhythmia Left axis deviation Incomplete right bundle branch block Nonspecific ST abnormality Abnormal ECG When compared with ECG of 21-JUN-2024 18:51, No significant change was found Referred By: Óscar Adames Electronically Signed By:EUGENIA HINKLE
--- NOTE | 2024-06-21 22:28 | PC.NURSE ---
pt denies cp reports more as burning sensation. placed on heart monitor. iv established to L. forearm. labs obtained. repeat ekg being obtained. pt is axox4 ambulates with steady gait. speaking full clear sentences. hiccups ever couple seconds. aware.
[2024-06-21 22:58] LABS: VBG Base Excess -0.3 mmol/L; VBG HCO3 23 mmol/L (22-26); VBG pCO2 34 mmHg; VBG pH 7.43 (7.32-7.43); VBG pO2 68 mmHg
[2024-06-21 22:58] LABS: Venous Blood Gas Refer to POC result
[2024-06-21] MEDS: Metoclopramide HCl 10 MG/2 ML VIAL IVPUSH (22:59)
[2024-06-21] MEDS: Famotidine/PF 20 MG/2 ML VIAL IVPUSH (22:59)
[2024-06-21] MEDS: iohexoL 350 MG/ML 100 ML INFUS..BTL 85 ML IV (23:28)
[2024-06-21 23:55] VITALS: BP 135/82; PULSE 66; RESP 14; TEMP 36.6; O2SAT 95
[2024-06-21] MEDS: 0.9 % Sodium Chloride 500 ML IV (23:56)
--- NOTE | 2024-06-21 23:57 | MHC.EDTECH ---
This tech took over care of patient at 2300,rounded and introduced self to patient,vitals taken,patient is resting quietly watching TV,call gay within reach
--- NOTE | 2024-06-22 02:04 | MHC.EDTECH ---
Patient is sitting on the side of the stretcher,ate a sandwich and drank a can of diet maryana bakari,patient tolerated well,lenin gay in reach
--- NOTE | 2024-06-22 02:31 | MHC.EDTECH ---
Patient given a ham sandwich per request
[2024-06-22 02:35] VITALS: BP 138/86; PULSE 69; RESP 16; TEMP 36.6; O2SAT 97
[2024-06-22 02:55] VITALS: BP 138/86; PULSE 69; RESP 16; TEMP 36.6; O2SAT 97
[2024-06-22 08:32] LABS: Glucose, Whole Blood 312 mg/dL (60-115)
== END 2024-06-22 02:55 | disposition home or self-care (01) ==
PROVIDERS: Physician Assistant; Emergency Provider Student in an Organized Health Care Education/Training Program; PCP Family Medicine
DX: R06.6 Hiccough (principal); K21.9 Gastro-esophageal reflux disease without esophagitis; R11.2 Nausea with vomiting, unspecified; I45.10 Unspecified right bundle-branch block; R79.89 Other specified abnormal findings of blood chemistry; R10.9 Unspecified abdominal pain; E11.9 Type 2 diabetes mellitus without complications; Z79.4 Long term (current) use of insulin; Z79.899 Other long term (current) drug therapy; Z87.891 Personal history of nicotine dependence
CPT/HCPCS: 36415; 71045; 71275; 74174; 80053; 81001; 82010; 82803; 82947; 83690; 84484; 85025; 85610; 85730; 93005; 96361; 96365; 96375; 99285; J2765; Q9967

== ENCOUNTER → 2024-06-21 18:40 | Outpatient (BNV) | payer OTHER, SELFPAY ==
[2022-03-27 08:59] VITALS: BP 136/70; BMI 27.3
== END ==
PROVIDERS: Emergency Provider Student in an Organized Health Care Education/Training Program; PCP Family Medicine; Visit Provider Internal Medicine
DX: R94.31 Abnormal electrocardiogram [ECG] [EKG] (principal)
CPT/HCPCS: 93010

== ENCOUNTER 2024-06-23 12:22 | Emergency (ER) | payer OTHER, SELFPAY ==
[2022-03-27 08:59] VITALS: BP 136/70; BMI 27.3
[2024-06-23 12:46] VITALS: BP 131/79; PULSE 54; RESP 20; TEMP 37; O2SAT 100; BMI 28.5
--- NOTE | 2024-06-23 12:49 | ED_ITS ---
HPI - Nausea/Vomiting/Diarrhea General Chief complaint: Abdominal Pain Stated complaint: Needs to vomit but cant Time Seen by Provider: 06/23/24 20:05 Source: patient and old records reviewed Mode of arrival: ambulatory Limitations: no limitations History of Present Illness ED Provider: TONYA OLGUIN Narrative: 73 yo male with PMH of HTN, HIV, DM, HLD just seen yesterday and dx with hiccups DC home with pepcid after labs and dissection study done of abdomen - he did no fill medications here returns today with c/o unable to eat, burning in throat. He still has nausea and hiccups. When I arrived to the room he states he has been here since 10am and he is leaving. He wants medications and wants to go home refuses other work up at this time. Just wants medications to feel better. MD elicited complaint: nausea and abdominal pain Onset (ago): day(s) (few) Description of vomiting: food contents Associated nausea: Yes Associated abdominal pain: Yes Location of pain: epigastric Severity: moderate Quality: constant Exacerbating factors: eating Relieving factors: none Associated symptoms: other (hiccups unable to eat) Related Data Home Medications ?Medication ?Instructions ?Recorded ?Confirmed abacavir 600 mg-dolutegravir 50 1 tab PO DAILY 01/17/21 01/17/21 mg-lamivudine 300 mg tablet (Triumeq) amlodipine 10 mg tablet 1 tab PO DAILY 01/17/21 01/17/21 bupropion HCl 150 mg 24 hr tablet, 1 tab PO DAILY 01/17/21 01/17/21 extended release chlorthalidone 25 mg tablet 1 tab PO DAILY 01/17/21 01/17/21 dulaglutide 1.5 mg/0.5 mL 1 mg subcut QWEEK 01/17/21 01/17/21 subcutaneous pen injector (Trulicity) insulin degludec 200 unit/mL (3 110 unit subcut QPM 01/17/21 01/17/21 mL) subcutaneous pen (Tresiba FlexTouch U-200 insulin) lisinopril 40 mg tablet 1 tab PO DAILY 01/17/21 01/17/21 metoprolol succinate 100 mg 1 tab PO DAILY 01/17/21 01/17/21 tablet,extended release 24 hr pen needle, diabetic 32 gauge x 01/17/21 01/17/21/32 (BD Colette 2nd Gen Pen Needle) rosuvastatin 40 mg tablet 1 tab PO DAILY 01/17/21 01/17/21 tamsulosin 0.4 mg capsule 1 cap PO DAILY 01/17/21 01/17/21 testosterone 75 mg implant pellet mg 01/17/21 (Testopel) Previous Rx's ?Medication ?Instructions ?Recorded dexamethasone 6 mg tablet 6 mg PO DAILY 6 days #6 tabs 01/12/21 doxycycline hyclate 100 mg capsule 100 mg PO BID 7 days #14 caps 01/12/21 chlorpromazine 25 mg tablet 25 mg PO Q6H PRN hiccups #6 tabs 01/17/21 doxycycline hyclate 100 mg tablet 100 mg PO BID 14 days #28 tabs 01/18/21 metoclopramide HCl 10 mg tablet 10 mg PO Q6H PRN hiccups #30 tabs 01/19/21 famotidine 20 mg tablet (Pepcid) 20 mg PO BID 14 days #28 tabs 06/22/24 metoclopramide HCl 5 mg tablet 5 mg PO BID PRN nausea and 06/23/24 (Reglan) vomiting #20 tabs omeprazole 20 mg capsule,delayed 20 mg PO DAILY #14 caps 06/23/24 release Allergies Allergy/AdvReac Type Severity Reaction Status Date / Time No Known Allergies Allergy Mild NOT Verified 06/23/24 12:49 APPLICABLE Review of Systems 2 Review of Systems: Constitutional : No Weight loss, No Fever, No Chills ENT/Mouth : No sore throat, No Rhinorrhea Eyes: No Swelling, No Redness Cardiovascular : No Chest Pain, No SOB, NoEdema Respiratory : No Cough, No Sputum, No Wheezing Gastrointestinal : Positive Nausea, Positive Vomiting, no Diarrhea, positive abdominal Pain, No Hematochezia, No Melena Genitourinary : No Dysuria, No Urinary Frequency, No Hematuria, No Urgency Musculoskeletal : No joint pain, No Myalgias, No Joint Swelling Skin : No Skin Lesions, No rash Neuro : No Weakness, No Numbness, No Dizziness, No Headache Psych : No Anxiety/Panic, No Depression All other systems reviewed and are negative. Gastrointestinal: Gastrointestinal: Reports nausea PMFSH Past Medical History Attestation statement: The following information was validated with the patient. Source: old records reviewed Medical History Appendicitis Myocardial infarct Coma Low testosterone Diabetes HIV (human immunodeficiency virus infection) Social History Social History Alcohol intake: current Alcohol intake frequency: does not drink Patient Tobacco Use Status: Former Tobacco user Advance Directives: Yes Advance Directives on File: Yes Advance Directives Date on File: 06/17/24 Do you have a plan to hurt others: No Plan Physical Exam 2 Vital Signs: Vital Signs: Last Vital Signs Temp 97.4 F 06/23/24 16:45 Pulse 60 06/23/24 16:45 Resp 18 06/23/24 16:45 BP 146/98 H 06/23/24 16:45 Pulse Ox 98 06/23/24 16:45 O2 Del Method Room Air 06/23/24 16:45 BMI result Body Mass Index 28.5 Appearance: Alert. Oriented X3. No acute distress. Eyes: Pupils equal, round and reactive to light. ENT: Pharynx normal. Neck: Normal inspection. Neck supple. CVS: Normal heart rate and rhythm. Pulses normal. Respiratory: No respiratory distress. Breath sounds normal. Abdomen: Soft and nontender. Skin: Skin warm and dry. Normal skin color. Normal skin turgor. Extremities: No lower extremity edema. No calf ttp Neuro: Oriented X 3. No motor deficit. No sensory deficit. Course Course Course Narrative: This is an RME: Additional HPI, ROS, PE not included below will be deferred to primary provider. RME assessment and note performed by: Anita Mckeon PA-C This is a 73 year old male, with a hx of HIV, ND, who presents to the ER with complaints of nausea, hiccups and regurgitation. Unable to keep anything down. He was seen several days ago for same Plan: labs, further ER eval needed Medical Decision Making Medical Decision Making MDM Narrative: 73 yo male with PMH of HTN, HIV, DM, HLD here with again hiccups nausea and upper abdominal pain at this time just had negative CTA of abdomen I want to obtain US of gallbladder and repeat troponin of the heart given new t wave inversions. He has been waiting since 10am and wants to go home at this time will DC home with supportive medications and he states he understands but he wants to leave and refuses to wait any longer. He will be given PPI and reglan and instructed to follow up with PCP. He is alert and oriented x 3. Differential Diagnosis Differential Diagnoses: The differential diagnosis associated with the presentation includes GERD, biliary colic, atypical ACS, esophagitis Lab Data MDM Lab Attestation statement: I reviewed the patient's lab results. 06/23/24 13:42 06/23/24 13:42 Labs: Lab Results 06/23/24 06/23/24 Range/Units 13:42 16:54 WBC 16.9 H (4.8-10.8) X10*3/uL RBC 5.62 (4.60-5.80) X10*6/uL Hgb 17.8 (14.0-18.0) g/dl Hct 50.8 (42.0-52.0) % MCV 90.4 (80.0-98.0) fL MCH 31.7 (27.0-33.0) pg MCHC 35.0 (31.0-36.0) g/dl RDW 13.1 (11.0-16.0) % Plt Count 203 (160-400) X10*3/uL MPV 9.8 (9.4-12.4) fL Immature Gran % (Auto) 1.2 H (0.0-0.4) % Neut % (Auto) 83.7 H (45-73) % Lymph % (Auto) 8.7 L (20-40) % [place] % (Auto) 5.9 (2-11) % Eos % (Auto) 0.3 (0-4) % Baso % (Auto) 0.2 (0-2) % Lymph # (Auto) 1.5 (1.2-4.9) X10*3/uL [place] # (Auto) 1.0 (0.1-1.2) X10*3/uL Eos # (Auto) 0.1 (0.0-0.4) X10*3/uL Baso # (Auto) 0.0 (0.0-0.2) X10*3/uL Abs Immat Gran (auto) 0.20 H (0.00-0.03) X10*3/uL Absolute Neuts (auto) 14.1 H (2.0-8.3) x10*3/uL Absolute Nucleated RBC 0.000 (0.0-0.012) X10*3/uL Nucleated RBC % (auto) 0.0 (0.0-0.2) /100WBC Sodium 140 (135-145) mmol/L Potassium 4.3 (3.3-5.1) mmol/L Chloride 108 (96-108) mmol/L Carbon Dioxide 27 (22-29) mmol/L Anion Gap 9 L (12-20) BUN 36 H (9-16) mg/dL Creatinine 1.68 H (0.5-1.4) mg/dL Estim Creat Clear Calc 39.5 Estimated GFR 40 POC Glucose 122 H (60-115) mg/dL Random Glucose 153 H (60-115) mg/dL Calcium 9.1 (8.4-10.2) mg/dL Magnesium 2.3 (1.6-2.6) mg/dL Total Bilirubin 0.5 (0.0-1.0) mg/dL Direct Bilirubin 0.2 (0.0-0.5) mg/dL AST 14 (5-37) U/L ALT 21 (0-40) U/L Alkaline Phosphatase 81 (39-117) U/L Troponin I High Sens 12.7 (<3.5-35.0) ng/L Total Protein 7.3 (6.5-8.0) g/dL Albumin 4.1 (3.5-5.0) g/dL Lipase 86 H (8-78) U/L Influenza Type A (PCR) NEGATIVE (Negative) Influenza Type B (PCR) NEGATIVE (Negative) RSV RNA Qual (PCR) NEGATIVE (Negative) SARS-CoV-2 RNA (RT-PCR) NEGATIVE (Negative) Independent Interpretation I performed an independent interpretation of an: EKG Interpretation: Rate: 52 Rhythm: sinus bradycardia [place]ale: left Normal P waves. Normal PRICILA. RBBB ST T wave : no JEROME, inverted t waves lateral leads more pronounced from most recent EKG qTC: 401 prior studies: more pronounced T wave inversions but trop flat The study has been interpreted contemporaneously by me. . External Record Review External record reviewed: Outpatient record Tests considered The following testing was considered but not selected: US OF Prescription Management I considered prescription management with: Other Discharge Plan Discharge Clinical Impression: Hiccups GERD with esophagitis Qualifiers: Esophagitis bleeding: without hemorrhage Qualified Code(s): K21.00 - Gastro- esophageal reflux disease with esophagitis, without bleeding Patient Disposition: Home, Self-Care Instructions: Hiccups (ED), Esophagitis (ED) Additional Instructions: please return if your symptoms worsen you notice bleeding fevers, increased pain or any other concerns I am going start you on two medicaitons for hiccups and GERD DO NOT TAKE THE FAMOTIDINE PRESCRIBED YESTERDAY PLEASE FOLLOW UP WITH YOUR DOCTORS SOON POSSIBLE WE COULD NOT COMPLETE THE WORK UP TODAY AT YOUR REQUEST. YOU CAN RETURN AT ANY TIME. Prescriptions: New omeprazole 20 mg capsule,delayed release(DR/EC) 20 mg PO DAILY Qty: 14 0RF metoclopramide HCl [Reglan] 5 mg tablet 5 mg PO BID PRN (Reason: nausea and vomiting) Qty: 20 0RF No Action metoprolol succinate 100 mg tablet extended release 24 hr 1 tab PO DAILY Testopel 75 mg pellet chlorthalidone 25 mg tablet 1 tab PO DAILY tamsulosin 0.4 mg capsule 1 cap PO DAILY amlodipine 10 mg tablet 1 tab PO DAILY lisinopril 40 mg tablet 1 tab PO DAILY rosuvastatin 40 mg tablet 1 tab PO DAILY bupropion HCl 150 mg tablet extended release 24 hr 1 tab PO DAILY (DME) pen needle, diabetic [BD Colette 2nd Gen Pen Needle] 32 gauge x 5/32 needle MISCELLANEOUS DAILY Tresiba FlexTouch U-200 200 unit/mL (3 mL) insulin pen 110 unit subcut QPM Triumeq 600-50-300 mg tablet 1 tab PO DAILY Trulicity 1.5 mg/0.5 mL pen injector 1 mg subcut QWEEK chlorpromazine 25 mg tablet 25 mg PO Q6H PRN (Reason: hiccups) Qty: 6 0RF doxycycline hyclate 100 mg tablet 100 mg PO BID 14 Days Qty: 28 0RF metoclopramide HCl 10 mg tablet 10 mg PO Q6H PRN (Reason: hiccups) Qty: 30 0RF doxycycline hyclate 100 mg capsule 100 mg PO BID 7 Days Qty: 14 0RF dexamethasone 6 mg tablet 6 mg PO DAILY 6 Days Qty: 6 0RF famotidine [Pepcid] 20 mg tablet 20 mg PO BID 14 Days Qty: 28 0RF Print Language: Senegalese
--- NOTE | 2024-06-23 12:52 | ECG_ITS ---
Test Reason : epigastric pain Blood Pressure : / mmHG Vent. Rate : 052 BPM Atrial Rate : 052 BPM P-R Int : 140 ms QRS Dur : 114 ms QT Int : 432 ms P-R-T Axes : -24 -51 124 degrees QTc Int : 401 ms Sinus bradycardia Left axis deviation Right bundle branch block T wave abnormality, consider lateral ischemia Abnormal ECG When compared with ECG of 21-JUN-2024 22:27, T wave inversion now evident in Lateral leads Referred By: Anita Mckeon Electronically Signed By:EUGENIA HINKLE
[2024-06-23 13:51] LABS: MANUAL DIFF FLAG NO
[2024-06-23 13:52] LABS: Basophils Percent Auto 0.2 % (0-2); Eosinophils Absolute Auto 0.1 X10*3/uL (0.0-0.4); Eosinophils Percent Auto 0.3 % (0-4); Hematocrit 50.8 % (42.0-52.0); Hemoglobin 17.8 g/dl (14.0-18.0); Imm Gran Pct Auto 1.2 % (0.0-0.4); Lymphocytes Absolute Auto 1.5 X10*3/uL (1.2-4.9); Lymphocytes Percent Auto 8.7 % (20-40); Mean Corpuscular Hemoglobin 31.7 pg (27.0-33.0); Mean Corpuscular Volume 90.4 fL (80.0-98.0); Mean Platelet Volume 9.8 fL (9.4-12.4); Monocytes Percent Auto 5.9 % (2-11); Neutrophils Absolute Auto 14.1 x10*3/uL (2.0-8.3); Neutrophils Percent Auto 83.7 % (45-73); Platelet Count 203 X10*3/uL (160-400); Red Blood Count 5.62 X10*6/uL (4.60-5.80); Red Cell Distribution Width 13.1 % (11.0-16.0); White Blood Count 16.9 X10*3/uL (4.8-10.8)
[2024-06-23 14:13] LABS: Alanine Aminotransferase 21 U/L (0-40); Albumin Level 4.1 g/dL (3.5-5.0); Alkaline Phosphatase 81 U/L (39-117); Anion Gap 9 (12-20); Aspartate Amino Transferase 14 U/L (5-37); Bilirubin Direct 0.2 mg/dL (0.0-0.5); Bilirubin Total 0.5 mg/dL (0.0-1.0); Blood Urea Nitrogen 36 mg/dL (9-16); Calcium 9.1 mg/dL (8.4-10.2); Carbon Dioxide 27 mmol/L (22-29); Chloride 108 mmol/L (96-108); Creatinine Clr Calc Pharmacy 39.5; Estimated Glomerular Filt Rate 40; Glucose Random 153 mg/dL (60-115); Lipase 86 U/L (8-78); Magnesium 2.3 mg/dL (1.6-2.6); Potassium 4.3 mmol/L (3.3-5.1); Sodium 140 mmol/L (135-145); Total Protein 7.3 g/dL (6.5-8.0)
[2024-06-23 14:16] LABS: Troponin-I High Sensitivity 12.7 ng/L (<3.5-35.0)
[2024-06-23 14:29] LABS: Influenza A PCR NEGATIVE (Negative); Influenza B PCR NEGATIVE (Negative); Resp Syncy Virus RNA Qual PCR NEGATIVE (Negative); SARS COV2 PCR INHOUSE NEGATIVE (Negative)
[2024-06-23 16:45] VITALS: BP 146/98; PULSE 60; RESP 18; TEMP 36.3; O2SAT 98
[2024-06-23 16:58] LABS: Glucose, Whole Blood 122 mg/dL (60-115)
[2024-06-23] MEDS: Magnesium Hydrox/Alum Hydrox 30 ML ORAL.SUSP 15 ML PO (20:29)
[2024-06-23] MEDS: Omeprazole 20 MG CAPSULE.DR PO (20:29)
[2024-06-23] MEDS: Lidocaine HCl Viscous 2 % 15 ML SOLUTION MUCOUS MEM (20:29)
[2024-06-23] MEDS: Ondansetron ODT 4 MG TAB.RAPDIS TRANSLINGU (20:29)
[2024-06-23 20:44] VITALS: BP 146/98; PULSE 60; RESP 18; TEMP 36.3; O2SAT 98
== END 2024-06-23 20:45 | disposition home or self-care (01) ==
PROVIDERS: Physician Assistant Medical; Emergency Provider Emergency Medicine; PCP Family Medicine
DX: K21.00 Gastro-esophageal reflux disease with esophagitis, without bleeding (principal); R11.2 Nausea with vomiting, unspecified; R06.6 Hiccough; R10.13 Epigastric pain; R00.1 Bradycardia, unspecified; I45.10 Unspecified right bundle-branch block; Z03.818 Encounter for observation for suspected exposure to other biological agents ruled out; Z79.899 Other long term (current) drug therapy; Z87.891 Personal history of nicotine dependence
CPT/HCPCS: 0241U; 36415; 80048; 80076; 82947; 83690; 83735; 84484; 85025; 93005; 99283

== ENCOUNTER → 2024-06-23 12:52 | Outpatient (BNV) | payer OTHER, SELFPAY ==
[2022-03-27 08:59] VITALS: BP 136/70; BMI 27.3
== END ==
PROVIDERS: PCP Family Medicine; Visit Provider Internal Medicine
DX: R94.31 Abnormal electrocardiogram [ECG] [EKG] (principal)
CPT/HCPCS: 93010

== ENCOUNTER 2024-07-27 09:43 | Day surgery (SDC) | payer OTHER, SELFPAY ==
[2022-03-27 08:59] VITALS: BP 136/70; BMI 27.3
[2024-07-22 10:05] VITALS: BMI 26.0
--- NOTE | 2024-07-23 14:07 | P.CONAN_ITS ---
Documented by User: Amie Ye NP 07/23/24 14:08 HPI - Anesthesia Eval Consult details Narrative: 73yo M for Left Cataract Extraction IOL Insertion No previous cataract on record Per pt, last dose Trulicity 07/20/24 ~3pm - reviewed wit Dr Gallo. LUCIANO for MAC Anesthesia Pre-Procedure Meds Is the patient on any of the following meds?: GLP1/DPP4 PMFSH Past Medical History Medical History Shoulder pain, bilateral GERD (gastroesophageal reflux disease) OAB (overactive bladder) Memory changes Anxiety Cataracts, bilateral 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 Polycythemia KINGSLEY (obstructive sleep apnea) Insulin long-term use HTN (hypertension) Hypersomnolence disorder Hyperlipidemia External hemorrhoids Hx of myocardial infarction Depression Dementia CKD (chronic kidney disease) stage 3, GFR 30-59 ml/min CAD (coronary artery disease) BPH (benign prostatic hyperplasia) Androgen deficiency History of diverticulitis Testosterone deficiency (~2006) Appendicitis Myocardial infarct Coma Low testosterone Diabetes HIV (human immunodeficiency virus infection) Surgical History Surgical History Hx of appendectomy Hx of cardiac cath (2008) History of esophagogastroduodenoscopy (EGD) (09/10/14) Hx of colonoscopy (2018) Hx of CABG (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 If so, by whom?: No Are you DNR?: No Advance Directives: Yes Advance Directives Information Provided: No Advance Directives on File: Yes Advance Directives Date on File: 06/17/24 Recently lost weight without trying: No Nutrition Risks: No Nutritional Risk Poor oral hygiene: No Meds Allergies Allergy/AdvReac Type Severity Reaction Status Date / Time No Known Allergies Allergy Mild NOT Verified 07/27/24 11:27 APPLICABLE Home Medications ?Medication ?Instructions ?Recorded ?Confirmed ?Last Taken ?Type amlodipine 10 mg tablet 1 tab PO DAILY 01/17/21 07/22/24 Unknown History bupropion HCl 150 mg 24 hr tablet, 1 tab PO DAILY 01/17/21 07/22/24 Unknown History extended release dulaglutide 1.5 mg/0.5 mL 1 mg subcut QWEEK 01/17/21 07/23/24 07/20/24 History subcutaneous pen injector (Trulicity) insulin degludec 200 unit/mL (3 35 unit subcut QPM 01/17/21 07/22/24 07/27/24 05:00 History mL) subcutaneous pen (Tresiba FlexTouch U-200 insulin) lisinopril 40 mg tablet 1 tab PO DAILY 01/17/21 07/22/24 Unknown History metoprolol succinate 100 mg 1 tab PO DAILY 01/17/21 07/22/24 Unknown History tablet,extended release 24 hr pen needle, diabetic 32 gauge x 01/17/21 01/17/21 Unknown History (BD Colette 2nd Gen Pen Needle) rosuvastatin 40 mg tablet 1 tab PO DAILY 01/17/21 07/22/24 Unknown History tamsulosin 0.4 mg capsule 1 cap PO DAILY 01/17/21 07/22/24 Unknown History testosterone 75 mg implant pellet mg implant .[id number] 01/17/21 Unknown History (Testopel) aspirin 81 mg tablet,delayed 81 mg PO DAILY 07/21/24 07/22/24 Unknown History release cabotegravir ER 600 mg/3 3 ml IM .[id number] 07/21/24 07/22/24 Unknown History mL-rilpivirine ER 900 mg/3mL IM suspension,ER (Cabenuva) donepezil 10 mg tablet 10 mg PO BEDTIME 07/21/24 07/22/24 Unknown History finasteride 5 mg tablet 5 mg PO DAILY 07/21/24 07/22/24 Unknown History mirabegron 50 mg tablet,extended 50 mg PO DAILY 07/21/24 07/22/24 Unknown History release 24 hr (Myrbetriq) pantoprazole 20 mg tablet,delayed 20 mg PO DAILY 07/21/24 07/22/24 Unknown History release doxycycline hyclate 100 mg tablet 100 mg PO DAILY 07/22/24 07/22/24 Unknown History Exam Height,Weight and Vital Signs: Height 5 ft 9 in Weight 79.832 kg Assessment and Plan Assessment Anesthesia Assessment: Chart Reviewed Documented by User: Buffy Traore MD 07/27/24 11:59 PMFSH Past Medical History Medical History Shoulder pain, bilateral GERD (gastroesophageal reflux disease) OAB (overactive bladder) Memory changes Anxiety Cataracts, bilateral 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 Polycythemia KINGSLEY (obstructive sleep apnea) Insulin long-term use HTN (hypertension) Hypersomnolence disorder Hyperlipidemia External hemorrhoids Hx of myocardial infarction Depression Dementia CKD (chronic kidney disease) stage 3, GFR 30-59 ml/min CAD (coronary artery disease) BPH (benign prostatic hyperplasia) Androgen deficiency History of diverticulitis Testosterone deficiency (~2006) Appendicitis Myocardial infarct Coma Low testosterone Diabetes HIV (human immunodeficiency virus infection) Surgical History Surgical History Hx of appendectomy Hx of cardiac cath (2008) History of esophagogastroduodenoscopy (EGD) (09/10/14) Hx of colonoscopy (2018) Hx of CABG (10/10/21) History of Problems with Anesthesia: No Social History Social History Are you a primary acute care physician to a significant other at home: No Do you presently have visiting nurse or other home services: Yes ([facility] 3 x week meds, VS) Alcohol intake: current Alcohol intake frequency: does not drink Patient Tobacco Use Status: Former Tobacco user Tobacco use type: Cigarette Smoked in Last 30 Days: No Second Hand Smoke Exposure: Yes Use of substances other than those prescribed or required for medical reasons: No Have you been hit, kicked, punched, or otherwise hurt by someone within the past year? If so, by whom?: No Are you DNR?: No Advance Directives: Yes Advance Directives Information Provided: No Advance Directives on File: Yes Advance Directives Date on File: 06/17/24 Recently lost weight without trying: No Nutrition Risks: No Nutritional Risk Poor oral hygiene: No Meds Allergies Allergy/AdvReac Type Severity Reaction Status Date / Time No Known Allergies Allergy Mild NOT Verified 07/27/24 11:27 APPLICABLE Home Medications ?Medication ?Instructions ?Recorded ?Confirmed ?Last Taken ?Type amlodipine 10 mg tablet 1 tab PO DAILY 01/17/21 07/22/24 Unknown History bupropion HCl 150 mg 24 hr tablet, 1 tab PO DAILY 01/17/21 07/22/24 Unknown History extended release dulaglutide 1.5 mg/0.5 mL 1 mg subcut QWEEK 01/17/21 07/23/24 07/20/24 History subcutaneous pen injector (Trulicity) insulin degludec 200 unit/mL (3 35 unit subcut QPM 01/17/21 07/22/24 07/27/24 05:00 History mL) subcutaneous pen (Tresiba FlexTouch U-200 insulin) lisinopril 40 mg tablet 1 tab PO DAILY 01/17/21 07/22/24 Unknown History metoprolol succinate 100 mg 1 tab PO DAILY 01/17/21 07/22/24 Unknown History tablet,extended release 24 hr pen needle, diabetic 32 gauge x 01/17/21 01/17/21 Unknown History (BD Colette 2nd Gen Pen Needle) rosuvastatin 40 mg tablet 1 tab PO DAILY 01/17/21 07/22/24 Unknown History tamsulosin 0.4 mg capsule 1 cap PO DAILY 01/17/21 07/22/24 Unknown History testosterone 75 mg implant pellet mg implant .[id number] 01/17/21 Unknown History (Testopel) aspirin 81 mg tablet,delayed 81 mg PO DAILY 07/21/24 07/22/24 Unknown History release cabotegravir ER 600 mg/3 3 ml IM .[id number] 07/21/24 07/22/24 Unknown History mL-rilpivirine ER 900 mg/3mL IM suspension,ER (Cabenuva) donepezil 10 mg tablet 10 mg PO BEDTIME 07/21/24 07/22/24 Unknown History finasteride 5 mg tablet 5 mg PO DAILY 07/21/24 07/22/24 Unknown History mirabegron 50 mg tablet,extended 50 mg PO DAILY 07/21/24 07/22/24 Unknown History release 24 hr (Myrbetriq) pantoprazole 20 mg tablet,delayed 20 mg PO DAILY 07/21/24 07/22/24 Unknown History release doxycycline hyclate 100 mg tablet 100 mg PO DAILY 07/22/24 07/22/24 Unknown History Exam Airway Mallampati Class: III TM Dist: >3cm Loose/Missing/Broken Teeth: No Heart: RRR Lungs: CTA Assessment and Plan Assessment Anesthesia Assessment: Anesthesia Plan Discussed Final Anesthetic Review History of Problems with Anesthesia: No NPO: Yes ASA Class: III Final Preanesthetic Review: Meds/Allgs Chart Reviewed, Consent Obtained/Reviewed and Anes Risks/Benef Reviewed Patient Risk: Intermediate Procedure Risk: Low Anesthetic Plan Anesthetic Plan: MAC: Disposition: Standard PACU
[2024-07-27] MEDS: Tetracaine HCl/PF 0.5% Oph Sol 4 ML DROPS 1 DROP EYE-LEFT (11:37)
[2024-07-27] MEDS: Cyclopentolate 1 % Ophth Sol 2 ML DRPBTL 1 DROP EYE-LEFT ×3 (11:40→11:59)
[2024-07-27] MEDS: Ketorolac Tromethamine 0.5% Op 10 ML DROPS 1 DROP EYE-LEFT ×3 (11:40→12:00)
[2024-07-27 11:42] LABS: Glucose, Whole Blood 95 mg/dL (60-115)
[2024-07-27] MEDS: Tropicamide 1 % Ophth Sol 3 ML BTL 1 DROP EYE-LEFT ×3 (11:42→12:02)
[2024-07-27] MEDS: Phenylephrine HCL 2.5% Oph SoL 2 ML BOTTLE 1 DROP EYE-LEFT ×3 (11:47→12:03)
[2024-07-27 11:49] VITALS: BMI 26.0
[2024-07-27 11:50] VITALS: BP 154/93; PULSE 65; RESP 16; TEMP 36.9; O2SAT 97
[2024-07-27] MEDS: Lactated Ringers 500 ML 50 ML IV (11:56)
--- NOTE | 2024-07-27 12:01 | MHC.SHP ---
Pre-Procedural Eval Section A - 24 Hr Update-Section A only Date of Service: 07/27/24 The patient is an INPATIENT: No Changes since office visit: No Cold of Flu in the past 2 weeks, No New Medical Problems, No Changes in Medication and No Patient answered all questions The patient has been examined within 24 hours of the surgical procedure. The History & Physical has been completed within 30 days and I have reviewed it.: Yes Section B - Complete if H&P > 30 days Chief Complaint: Age-related nuclear cataract, left eye Allergies: Allergies Allergy/AdvReac Type Severity Reaction Status Date / Time No Known Allergies Allergy Mild NOT Verified 07/27/24 11:27 APPLICABLE Plan Diagnosis/Plan: Unchanged I have reviewed the history and physical and performed a pertinent physical examination on my patient. No changes have occurred unless specified. Time Spent With Patient Time: Total time managing care of this patient today ____ minutes.
--- NOTE | 2024-07-27 12:02 | HO.PNOPHT ---
Ophthalmology Procedure Procedure Date of Service: 07/27/24 Ophthalmology Viscoelastic: Healon Duet Dual Pack Pro Ophthalmology Lenses: IOL Acrysof MP - [id number] (21.5) Procedure Notes: PREOPERATIVE DIAGNOSIS: Decreased visual acuity left eye secondary to cataract POSTOPERATIVE DIAGNOSIS: Same PROCEDURE: Left cataract extraction with intraocular lens insertion SURGEON: Tre Cm M.D. ANESTHESIA: Topical/MAC ESTIMATED BLOOD LOSS: None COMPLICATIONS: None After obtaining informed consent, the patient was brought to the operation room suite and placed in the supine position. After adequate sedation per anesthesia, topical drops of Tetracaine were given to the left eye. The eye was then prepped and draped in the usual sterile fashion. The operating room microscope was then positioned over the operative eye and a lid speculum placed. A paracentesis was created. Viscoelastic was then instilled into the anterior chamber. A three plane incision was then created temporally, utilizing a 2.85 mm keratome. Capsulotomy forceps were then utilized to create a circular tear capsulotomy. Hydrodissection and hydrodelineation were carried out until adequate mobilization of the nucleus occurred. Phacoemulsification was then utilized to remove the dense central nucleus followed by removal of the cortical material utilizing the automated aspiration irrigation unit. Viscoat elastic was instilled into the posterior capsular bag followed by placement of a posterior chamber intraocular lens without difficulty. The residual Viscoat elastic was then removed utilizing the automated IA machine. The wound was check and found to be watertight. The patient tolerated the procedure well and the lid speculum was removed. Intracameral injection of Vigamox 0.1 mL followed by a subtenon injection of Kenalog-40 0.2 mL were administered. The patient will be seen in the a.m.
[2024-07-27 12:33] VITALS: BP 142/92; PULSE 62; RESP 16; TEMP 36.6; O2SAT 97
== END 2024-07-27 12:43 | disposition home or self-care (01) ==
PROVIDERS: PCP Family Medicine; Visit Provider Ophthalmology
PROC: (CPT 66985; principal; 2024-07-27 13:00)
DX: H25.12 Age-related nuclear cataract, left eye (principal); H52.4 Presbyopia; Z83.511 Family history of glaucoma; H40.033 Anatomical narrow angle, bilateral; H11.153 Pinguecula, bilateral; I10 Essential (primary) hypertension; E78.00 Pure hypercholesterolemia, unspecified; E11.9 Type 2 diabetes mellitus without complications; B20 Human immunodeficiency virus [HIV] disease; G47.33 Obstructive sleep apnea (adult) (pediatric); I25.10 Atherosclerotic heart disease of native coronary artery without angina pectoris; Z95.1 Presence of aortocoronary bypass graft; C61 Malignant neoplasm of prostate; Z79.899 Other long term (current) drug therapy; Z79.4 Long term (current) use of insulin; Z79.84 Long term (current) use of oral hypoglycemic drugs; Z87.891 Personal history of nicotine dependence; Z98.890 Other specified postprocedural states
CPT/HCPCS: 66984; 82947; J2250; J3301; V2630

== ENCOUNTER 2024-08-10 08:52 | Day surgery (SDC) | payer OTHER, SELFPAY ==
[2022-03-27 08:59] VITALS: BP 136/70; BMI 27.3
[2024-07-22 10:40] VITALS: BMI 26.0
[2024-07-22 10:46] VITALS: BMI 26.0
--- NOTE | 2024-08-04 14:24 | P.CONAN_ITS ---
Documented by User: Amie Ye NP 08/04/24 14:25 HPI - Anesthesia Eval Consult details Narrative: 73yo M for Right Cataract Extraction IOL Insertion Left eye 07/27/24: [facility] 2 Anesthesia Pre-Procedure Meds Is the patient on any of the following meds?: GLP1/DPP4 PMFSH Past Medical History Medical History Shoulder pain, bilateral GERD (gastroesophageal reflux disease) OAB (overactive bladder) Memory changes Anxiety Cataracts, bilateral 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 Polycythemia KINGSLEY (obstructive sleep apnea) Insulin long-term use HTN (hypertension) Hypersomnolence disorder Hyperlipidemia External hemorrhoids Hx of myocardial infarction Depression Dementia CKD (chronic kidney disease) stage 3, GFR 30-59 ml/min CAD (coronary artery disease) BPH (benign prostatic hyperplasia) Androgen deficiency History of diverticulitis Testosterone deficiency (~2006) Appendicitis Myocardial infarct Coma Low testosterone Diabetes HIV (human immunodeficiency virus infection) Surgical History Surgical History Hx of appendectomy Hx of cardiac cath (2008) History of esophagogastroduodenoscopy (EGD) (09/10/14) Hx of colonoscopy (2018) Hx of CABG (10/10/21) History of Problems with Anesthesia: No Social History Social History Are you a primary md do resident urgent care to a significant other at home: No Do you presently have visiting nurse or other home services: Yes ([facility] 3 x week meds, VS) Alcohol intake: current Alcohol intake frequency: does not drink Patient Tobacco Use Status: Former Tobacco user Tobacco use type: Cigarette Smoked in Last 30 Days: No Second Hand Smoke Exposure: Yes Use of substances other than those prescribed or required for medical reasons: No Have you been hit, kicked, punched, or otherwise hurt by someone within the past year? If so, by whom?: No Are you DNR?: No Advance Directives: Yes Advance Directives Information Provided: No Advance Directives on File: Yes Advance Directives Date on File: 06/17/24 Recently lost weight without trying: No Nutrition Risks: No Nutritional Risk Poor oral hygiene: No Meds Allergies Allergy/AdvReac Type Severity Reaction Status Date / Time No Known Allergies Allergy Mild NOT Verified 07/27/24 11:27 APPLICABLE Home Medications ?Medication ?Instructions ?Recorded ?Confirmed ?Last Taken ?Type amlodipine 10 mg tablet 1 tab PO DAILY 01/17/21 07/22/24 Unknown History bupropion HCl 150 mg 24 hr tablet, 1 tab PO DAILY 01/17/21 07/22/24 Unknown History extended release dulaglutide 1.5 mg/0.5 mL 1 mg subcut QWEEK 01/17/21 07/23/24 07/20/24 History subcutaneous pen injector (Trulicity) insulin degludec 200 unit/mL (3 35 unit subcut QPM 01/17/21 07/22/24 07/27/24 05:00 History mL) subcutaneous pen (Tresiba FlexTouch U-200 insulin) lisinopril 40 mg tablet 1 tab PO DAILY 01/17/21 07/22/24 Unknown History metoprolol succinate 100 mg 1 tab PO DAILY 01/17/21 07/22/24 Unknown History tablet,extended release 24 hr pen needle, diabetic 32 gauge x 01/17/21 01/17/21 Unknown History (BD Colette 2nd Gen Pen Needle) rosuvastatin 40 mg tablet 1 tab PO DAILY 01/17/21 07/22/24 Unknown History tamsulosin 0.4 mg capsule 1 cap PO DAILY 01/17/21 07/22/24 Unknown History testosterone 75 mg implant pellet mg implant .[id number] 01/17/21 Unknown History (Testopel) aspirin 81 mg tablet,delayed 81 mg PO DAILY 07/21/24 07/22/24 Unknown History release cabotegravir ER 600 mg/3 3 ml IM .[id number] 07/21/24 07/22/24 Unknown History mL-rilpivirine ER 900 mg/3mL IM suspension,ER (Cabenuva) donepezil 10 mg tablet 10 mg PO BEDTIME 07/21/24 07/22/24 Unknown History finasteride 5 mg tablet 5 mg PO DAILY 07/21/24 07/22/24 Unknown History mirabegron 50 mg tablet,extended 50 mg PO DAILY 07/21/24 07/22/24 Unknown History release 24 hr (Myrbetriq) pantoprazole 20 mg tablet,delayed 20 mg PO DAILY 07/21/24 07/22/24 Unknown History release doxycycline hyclate 100 mg tablet 100 mg PO DAILY 07/22/24 07/22/24 Unknown History Exam Height,Weight and Vital Signs: Height 5 ft 9 in Weight 79.8 kg Assessment and Plan Assessment Anesthesia Assessment: Chart Reviewed Final Anesthetic Review History of Problems with Anesthesia: No Documented by User: Flor Meyers MD 08/10/24 10:20 [facility] Past Medical History Medical History Shoulder pain, bilateral GERD (gastroesophageal reflux disease) OAB (overactive bladder) Memory changes Anxiety Cataracts, bilateral 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 Polycythemia KINGSLEY (obstructive sleep apnea) Insulin long-term use HTN (hypertension) Hypersomnolence disorder Hyperlipidemia External hemorrhoids Hx of myocardial infarction Depression Dementia CKD (chronic kidney disease) stage 3, GFR 30-59 ml/min CAD (coronary artery disease) BPH (benign prostatic hyperplasia) Androgen deficiency History of diverticulitis Testosterone deficiency (~2006) Appendicitis Myocardial infarct Coma Low testosterone Diabetes HIV (human immunodeficiency virus infection) Family History Family history of problems with anesthesia: No Surgical History Surgical History Hx of appendectomy Hx of cardiac cath (2008) History of esophagogastroduodenoscopy (EGD) (09/10/14) Hx of colonoscopy (2018) Hx of CABG (10/10/21) Social History Social History Are you a primary md do resident urgent care to a significant other at home: No Do you presently have visiting nurse or other home services: Yes ([facility] 3 x week meds, VS) Alcohol intake: current Alcohol intake frequency: does not drink Patient Tobacco Use Status: Former Tobacco user Tobacco use type: Cigarette Smoked in Last 30 Days: No Second Hand Smoke Exposure: Yes Use of substances other than those prescribed or required for medical reasons: No Have you been hit, kicked, punched, or otherwise hurt by someone within the past year? If so, by whom?: No Are you DNR?: No Advance Directives: Yes Advance Directives Information Provided: No Advance Directives on File: Yes Advance Directives Date on File: 06/17/24 Recently lost weight without trying: No Nutrition Risks: No Nutritional Risk Poor oral hygiene: No Meds Allergies Allergy/AdvReac Type Severity Reaction Status Date / Time No Known Allergies Allergy Mild NOT Verified 07/27/24 11:27 APPLICABLE Home Medications ?Medication ?Instructions ?Recorded ?Confirmed ?Last Taken ?Type amlodipine 10 mg tablet 1 tab PO DAILY 01/17/21 07/22/24 Unknown History bupropion HCl 150 mg 24 hr tablet, 1 tab PO DAILY 01/17/21 07/22/24 Unknown History extended release dulaglutide 1.5 mg/0.5 mL 1 mg subcut QWEEK 01/17/21 07/23/24 07/20/24 History subcutaneous pen injector (Trulicity) insulin degludec 200 unit/mL (3 35 unit subcut QPM 01/17/21 07/22/24 07/27/24 05:00 History mL) subcutaneous pen (Tresiba FlexTouch U-200 insulin) lisinopril 40 mg tablet 1 tab PO DAILY 01/17/21 07/22/24 Unknown History metoprolol succinate 100 mg 1 tab PO DAILY 01/17/21 07/22/24 Unknown History tablet,extended release 24 hr pen needle, diabetic 32 gauge x 01/17/21 01/17/21 Unknown History (BD Colette 2nd Gen Pen Needle) rosuvastatin 40 mg tablet 1 tab PO DAILY 01/17/21 07/22/24 Unknown History tamsulosin 0.4 mg capsule 1 cap PO DAILY 01/17/21 07/22/24 Unknown History testosterone 75 mg implant pellet mg implant .[id number] 01/17/21 Unknown History (Testopel) aspirin 81 mg tablet,delayed 81 mg PO DAILY 07/21/24 07/22/24 Unknown History release cabotegravir ER 600 mg/3 3 ml IM .[id number] 07/21/24 07/22/24 Unknown History mL-rilpivirine ER 900 mg/3mL IM suspension,ER (Cabenuva) donepezil 10 mg tablet 10 mg PO BEDTIME 07/21/24 07/22/24 Unknown History finasteride 5 mg tablet 5 mg PO DAILY 07/21/24 07/22/24 Unknown History mirabegron 50 mg tablet,extended 50 mg PO DAILY 07/21/24 07/22/24 Unknown History release 24 hr (Myrbetriq) pantoprazole 20 mg tablet,delayed 20 mg PO DAILY 07/21/24 07/22/24 Unknown History release doxycycline hyclate 100 mg tablet 100 mg PO DAILY 07/22/24 07/22/24 Unknown History Exam Airway Mallampati Class: II TM Dist: >3cm Neck ROM: Limited Heart: rrr Lungs: cta Assessment and Plan Assessment Anesthesia Assessment: Anesthesia Plan Discussed Final Anesthetic Review Family History of Problems with Anesthesia: No NPO: Yes ASA Class: III Final Preanesthetic Review: No Changes in Pt Med Stat, Meds/Allgs Chart Reviewed, Consent Obtained/Reviewed and Anes Risks/Benef Reviewed Patient Risk: Intermediate Procedure Risk: Low Anesthetic Plan Anesthetic Plan: MAC: Disposition: Standard PACU
[2024-08-10 10:28] VITALS: BP 155/78; PULSE 56; RESP 15; TEMP 36.7; O2SAT 97
[2024-08-10] MEDS: Tetracaine HCl/PF 0.5% Oph Sol 4 ML DROPS 1 DROP EYE-RIGHT (10:30)
[2024-08-10] MEDS: Cyclopentolate 1 % Ophth Sol 2 ML DRPBTL 1 DROP EYE-RIGHT ×3 (10:31→10:44)
[2024-08-10] MEDS: Tropicamide 1 % Ophth Sol 3 ML BTL 1 DROP EYE-RIGHT ×3 (10:33→10:45)
[2024-08-10] MEDS: Ketorolac Tromethamine 0.5% Op 10 ML DROPS 1 DROP EYE-RIGHT ×3 (10:34→10:46)
[2024-08-10] MEDS: Phenylephrine HCL 2.5% Oph SoL 2 ML BOTTLE 1 DROP EYE-RIGHT ×3 (10:36→10:47)
--- NOTE | 2024-08-10 10:41 | MHC.SHP ---
Pre-Procedural Eval Section A - 24 Hr Update-Section A only Date of Service: 08/10/24 The patient is an INPATIENT: No Changes since office visit: No Cold of Flu in the past 2 weeks, No New Medical Problems, No Changes in Medication and No Patient answered all questions The patient has been examined within 24 hours of the surgical procedure. The History & Physical has been completed within 30 days and I have reviewed it.: Yes Section B - Complete if H&P > 30 days Chief Complaint: Age-related nuclear cataract, right eye Allergies: Allergies Allergy/AdvReac Type Severity Reaction Status Date / Time No Known Allergies Allergy Mild NOT Verified 08/10/24 10:26 APPLICABLE Plan Diagnosis/Plan: Unchanged I have reviewed the history and physical and performed a pertinent physical examination on my patient. No changes have occurred unless specified. Time Spent With Patient Time: Total time managing care of this patient today ____ minutes.
--- NOTE | 2024-08-10 10:42 | P.PCNO_ITS ---
Ophthalmology Procedure Procedure Date of Service: 08/10/24 Ophthalmology Viscoelastic: Healon Duet Dual Pack Pro Ophthalmology Lenses: IOL Acrysof MP - [id number] (20.5) Procedure Notes: PREOPERATIVE DIAGNOSIS: Decreased visual acuity right eye secondary to cataract POSTOPERATIVE DIAGNOSIS: Same PROCEDURE: Right cataract extraction with intraocular lens insertion SURGEON: Tre Cm M.D. ANESTHESIA: Topical/MAC ESTIMATED BLOOD LOSS: None COMPLICATIONS: None After obtaining informed consent, the patient was brought to the operating room suite and placed in the supine position. After adequate sedation per anesthesia, topical drops of Tetracaine were given to the right eye. The eye was then prepped and draped in the usual sterile fashion. The operating room microscope was then positioned over the operative eye and a lid speculum placed. A paracentesis was created. Viscoelastic was then instilled into the anterior chamber. A three plane incision was then created temporally, utilizing a 2.85 mm keratome. Capsulotomy forceps were then utilized to create a circular tear capsulotomy. Hydrodissection and hydrodelineation were carried out until adequate mobilization of the nucleus occurred. Phacoemulsification was then utilized to remove the dense central nu cleus followed by removal of the cortical material utilizing the automated aspiration irrigation unit. Viscoelastic was instilled into the posterior capsular bag followed by placement of a posterior chamber intraocular lens without difficulty. The residual Viscoelastic was then removed utilizing the automated IA machine. The wound was checked and found to be watertight. The patient tolerated the procedure well and the lid speculum was removed. Intracameral injection of Vigamox 0.1 mL followed by a subtenon injection of Kenalog-40 0.2 mL were administered. The patient will be seen in the a.m.
[2024-08-10 10:47] LABS: Glucose, Whole Blood 110 mg/dL (60-115)
[2024-08-10] MEDS: Lactated Ringers 500 ML 50 ML IV (10:47)
[2024-08-10 11:56] VITALS: BP 153/88; PULSE 57; RESP 16; TEMP 36.9; O2SAT 100
== END 2024-08-10 11:59 | disposition home or self-care (01) ==
PROVIDERS: PCP Family Medicine; Visit Provider Ophthalmology
PROC: (CPT 66985; principal; 2024-08-10 11:30)
DX: H25.11 Age-related nuclear cataract, right eye (principal); H52.4 Presbyopia; H40.033 Anatomical narrow angle, bilateral; H11.153 Pinguecula, bilateral; Z83.511 Family history of glaucoma; I10 Essential (primary) hypertension; E11.9 Type 2 diabetes mellitus without complications; I25.10 Atherosclerotic heart disease of native coronary artery without angina pectoris; Z95.1 Presence of aortocoronary bypass graft; B20 Human immunodeficiency virus [HIV] disease; G47.33 Obstructive sleep apnea (adult) (pediatric); Z79.82 Long term (current) use of aspirin; Z79.4 Long term (current) use of insulin; Z79.85 Long-term (current) use of injectable non-insulin antidiabetic drugs; Z79.899 Other long term (current) drug therapy; Z87.891 Personal history of nicotine dependence; Z98.890 Other specified postprocedural states
CPT/HCPCS: 66984; 82947; J2250; J3301; V2630

== ENCOUNTER 2025-01-03 05:09 | Emergency (ER) | payer OTHER, SELFPAY ==
[2022-03-27 08:59] VITALS: BP 136/70; BMI 27.3
--- NOTE | 2025-01-03 | ECG_ITS ---
Test Reason : abdominal pain Blood Pressure : */* mmHG Vent. Rate : 76 BPM Atrial Rate : 76 BPM P-R Int : 136 ms QRS Dur : 102 ms QT Int : 388 ms P-R-T Axes : 64 -50 98 degrees QTcB Int : 436 ms Sinus rhythm with occasional Premature ventricular complexes Incomplete right bundle branch block Left anterior fascicular block Minimal voltage criteria for LVH, may be normal variant ( R in aVL ) Nonspecific ST and T wave abnormality Abnormal ECG When compared with ECG of 23-Jun-2024 13:33, Premature ventricular complexes are now Present Nonspecific T wave abnormality now evident in Inferior leads Referred By: Generic ED Physician Electronically Signed By: EUGENIA HINKLE
--- NOTE | ~2025-01-03 | CT_ITS ---
CLINICAL HISTORY: nauseax 3 days, Lipase 251, food intolerance Exam: CT abdomen and pelvis with intravenous contrast. Comparison: June 21, 2024. Findings: CT abdomen: Lung bases are clear. No acute bony lesions. Hemangioma measuring 15 mm in size within the L3 vertebral body. Patient has undergone prior sternotomy. There is dense calcification of the visualized [place] coronary arteries. No focal hepatic lesions. Main portal vein is patent. Densely calcified gallstones are again seen dependently. No gallbladder wall thickening or pericholecystic fluid. Spleen, pancreas, adrenal glands, and kidneys are unremarkable for acute findings. Specifically, no peripancreatic inflammatory stranding. No dilated small bowel. No free fluid or free air. CT pelvis: Fat containing bilateral inguinal hernias. Moderate to severe sigmoid diverticulosis without diverticulitis. Less pronounced diverticular disease within the more proximal colon. Appendix is surgically absent. No free fluid or free air. Impression: No acute imaging explanation for the patient's symptoms. Specifically, no CT findings of pancreatitis. Cholelithiasis without CT findings of cholecystitis. This document has been electronically signed by: Nam Kaab MD on 01/03/2025 08:56:13
[2025-01-03 05:13] VITALS: BP 180/111; PULSE 89; RESP 16; TEMP 36.6; O2SAT 97; BMI 25.8
[2025-01-03 05:29] VITALS: BP 181/107; PULSE 75; RESP 20; TEMP 36.4; O2SAT 96
--- NOTE | 2025-01-03 05:45 | ED.GENADULT ---
HPI - General Adult General Chief complaint: Nausea/Vomiting/Diarrhea Stated complaint: nauseous for 3 or 4 days Time Seen by Provider: 01/03/25 05:45 History of Present Illness ED Provider: Harrison OLGUIN narrative: The patient is a very pleasant 74-year-old male with a history of long-term HIV. He also has type 2 diabetes. He says that for the last 3 days he has had nausea any time he tries to eat. This has resulted in lower than usual oral intake. He says that his abdominal symptoms feel worse when he lies flat so he has been spending a lot of time in a recliner. He also notes that he thinks he is extremely worried about his financial well-being. He says that he relies a great deal on his social security money and that in the days before his social security check comes through he feels very anxious because money is tight. He has not really had any abdominal pain. He has had nausea but no definite vomiting. No diarrhea. No chest pain or shortness of breath. He says that he slept for a few hours tonight but early this morning he woke up and was very worried about his nausea and came to the emergency room. He drove himself to the emergency room this morning. Related Data Home Medications ?Medication ?Instructions ?Recorded ?Confirmed amlodipine 10 mg tablet 1 tab PO DAILY 01/17/21 07/22/24 bupropion HCl 150 mg 24 hr tablet, 1 tab PO DAILY 01/17/21 07/22/24 extended release dulaglutide 1.5 mg/0.5 mL 1 mg subcut QWEEK 01/17/21 07/23/24 subcutaneous pen injector (Trulicity) insulin degludec 200 unit/mL (3 35 unit subcut QPM 01/17/21 07/22/24 mL) subcutaneous pen (Tresiba FlexTouch U-200 insulin) lisinopril 40 mg tablet 1 tab PO DAILY 01/17/21 07/22/24 metoprolol succinate 100 mg 1 tab PO DAILY 01/17/21 07/22/24 tablet,extended release 24 hr pen needle, diabetic 32 gauge x 01/17/21 01/17/21 (BD Colette 2nd Gen Pen Needle) rosuvastatin 40 mg tablet 1 tab PO DAILY 01/17/21 07/22/24 tamsulosin 0.4 mg capsule 1 cap PO DAILY 01/17/21 07/22/24 testosterone 75 mg implant pellet mg implant .[id number] 01/17/21 (Testopel) aspirin 81 mg tablet,delayed 81 mg PO DAILY 07/21/24 07/22/24 release cabotegravir ER 600 mg/3 3 ml IM .[id number] 07/21/24 07/22/24 mL-rilpivirine ER 900 mg/3mL IM suspension,ER (Cabenuva) donepezil 10 mg tablet 10 mg PO BEDTIME 07/21/24 07/22/24 finasteride 5 mg tablet 5 mg PO DAILY 07/21/24 07/22/24 mirabegron 50 mg tablet,extended 50 mg PO DAILY 07/21/24 07/22/24 release 24 hr (Myrbetriq) pantoprazole 20 mg tablet,delayed 20 mg PO DAILY 07/21/24 07/22/24 release doxycycline hyclate 100 mg tablet 100 mg PO DAILY 07/22/24 07/22/24 Previous Rx's ?Medication ?Instructions ?Recorded doxycycline hyclate 100 mg capsule 100 mg PO BID 7 days #14 caps 01/12/21 chlorpromazine 25 mg tablet 25 mg PO Q6H PRN hiccups #6 tabs 01/17/21 ondansetron 4 mg disintegrating 4 mg PO Q6H PRN nausea and 01/03/25 tablet vomiting #10 tabs Allergies Allergy/AdvReac Type Severity Reaction Status Date / Time No Known Allergies Allergy Mild NOT Verified 01/03/25 05:16 APPLICABLE Review of Systems Review of Systems: Yes all other systems are reviewed and are negative PMFSH Past Medical History Medical History Shoulder pain, bilateral GERD (gastroesophageal reflux disease) OAB (overactive bladder) Memory changes Anxiety Cataracts, bilateral 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 Polycythemia KINGSLEY (obstructive sleep apnea) Insulin long-term use HTN (hypertension) Hypersomnolence disorder Hyperlipidemia External hemorrhoids Hx of myocardial infarction Depression Dementia CKD (chronic kidney disease) stage 3, GFR 30-59 ml/min CAD (coronary artery disease) BPH (benign prostatic hyperplasia) Androgen deficiency History of diverticulitis Testosterone deficiency (~2006) Appendicitis Myocardial infarct Coma Low testosterone Diabetes HIV (human immunodeficiency virus infection) Surgical History Hx of appendectomy Hx of cardiac cath (2008) History of esophagogastroduodenoscopy (EGD) (09/10/14) Hx of colonoscopy (2019) Hx of CABG (10/10/21) Social History Social History Are you a primary care transitions nurse to a significant other at home: No Do you presently have visiting nurse or other home services: Yes ([facility] 3 x week meds, VS) Alcohol intake: current Alcohol intake frequency: does not drink Patient Tobacco Use Status: Former Tobacco user Tobacco use type: Cigarette Smoked in Last 30 Days: No Second Hand Smoke Exposure: Yes Use of substances other than those prescribed or required for medical reasons: No Advance Directives: Yes Advance Directives on File: Yes Advance Directives Date on File: 06/17/24 Do you have a plan to hurt others: No Plan Physical Exam ED Vital Signs: Vital Signs - 24 hr 01/03/25 05:13 01/03/25 05:29 01/03/25 08:33 Temperature 97.8 F 97.5 F Pulse Rate 89 75 80 Respiratory Rate 16 20 20 Blood Pressure 180/111 H 181/107 H 158/98 H Pulse Oximetry 97 96 97 Oxygen Delivery Method Room Air Room Air Room Air BMI result Body Mass Index 25.8 Const Other: The patient is a well-groomed 74-year-old male who was awake and alert, pleasant cooperative and does not seem in acute distress. He was quite talkative. HENMT Other: Face is symmetrical, mucous membranes moist. Eyes General: appearance normal, both eyes and all related structures Neck Neck: Yes normal visual inspection and Yes full ROM Resp Effort & Inspection: normal respiratory effort Auscultation: clear to auscultation bilaterally Cardio Rate: regular rate Rhythm: regular rhythm Heart sounds: S1 normal heart sound present and S2 normal heart sound present GI Other: The abdomen is soft nontender Skin Other: skin is dry and unremarkable Neuro Other: the patient is awake and alert with normal mental status. Cranial nerves are grossly intact. He moves his extremities normally and appropriately. Extrem Other: No peripheral edema Medications Administered Discontinued Medications Generic Name Dose Route Start Last Admin Trade Name Joya PRN Reason Stop Dose Admin Sodium Chloride 1,000 mls @ 999 mls/hr 01/03/25 06:30 01/03/25 06:54 Ns IV 01/03/25 07:30 999 mls/hr .Q1H1M LAUREL Administration Iohexol 85 ml 01/03/25 06:41 01/03/25 06:41 Iohexol 350 Mg/Ml 100 Ml Infus..Btl IV 01/03/25 06:42 85 ml ONCE ONE Administration Ondansetron HCl 4 mg 01/03/25 06:22 01/03/25 06:53 Ondansetron Hcl 4 Mg/2 Ml Vial IVPUSH 01/03/25 06:23 4 mg ONCE ONE Administration Medical Decision Making Medical Decision Making [facility] Narrative: the patient is a 74-year-old male who says that for the last 3 days he has had fairly severe sense of nausea that is worse when he tries to eat food. This has resulted in him taking very little by mouth over the last 3 days. He has also been feeling very anxious. He says he thinks he is anxious about his financial affairs. He is dependent on social security and he says that in the days running up to when he gets his social security money he feels very anxious. He says that he has tried to get help for his anxiety in the past but has not been able to get a referral to any kind of mental health professional. Patient's physical exam seemed reassuring. An EKG is unremarkable. Labs are unremarkable. He has no ketones in his urine. CT of the abdomen and pelvis does not show any intra-abdominal derangement to account for his symptoms. He was given a L of IV fluids and a dose of ondansetron. When I told him that his workup was unremarkable he said that he had been entirely comfortable and asymptomatic while he had been in the emergency room. He would like to be discharged. He is hungry. He would like to try to eat some food. I provided him with information for the [facility] intake office in [place] where he can go to try to get a therapist. He should follow up with his regular doctor or return to the ER if worse. Lab Data 01/03/25 05:44 01/03/25 05:44 Labs: Lab Results 01/03/25 01/03/25 Range/Units 05:44 08:32 WBC 12.8 H (4.8-10.8) X10*3/uL RBC 5.12 (4.60-5.80) X10*6/uL Hgb 16.0 (14.0-18.0) g/dl Hct 45.7 (42.0-52.0) % MCV 89.3 (80.0-98.0) fL MCH 31.3 (27.0-33.0) pg MCHC 35.0 (31.0-36.0) g/dl RDW 13.0 (11.0-16.0) % Plt Count 166 (160-400) X10*3/uL MPV 9.1 L (9.4-12.4) fL Immature Gran % (Auto) 1.0 H (0.0-0.4) % Neut % (Auto) 83.9 H (45-73) % Lymph % (Auto) 9.3 L (20-40) % [place] % (Auto) 5.6 (2-11) % Eos % (Auto) 0.1 (0-4) % Baso % (Auto) 0.1 (0-2) % Lymph # (Auto) 1.2 (1.2-4.9) X10*3/uL [place] # (Auto) 0.7 (0.1-1.2) X10*3/uL Eos # (Auto) 0.0 (0.0-0.4) X10*3/uL Baso # (Auto) 0.0 (0.0-0.2) X10*3/uL Abs Immat Gran (auto) 0.13 H (0.00-0.03) X10*3/uL Absolute Neuts (auto) 10.8 H (2.0-8.3) x10*3/uL Absolute Nucleated RBC 0.000 (0.0-0.012) X10*3/uL Nucleated RBC % (auto) 0.0 (0.0-0.2) /100WBC Sodium 137 (135-145) mmol/L Potassium 3.5 (3.3-5.1) mmol/L Chloride 105 (96-108) mmol/L Carbon Dioxide 22 (22-29) mmol/L Anion Gap 14 (12-20) BUN 24 H (9-16) mg/dL Creatinine 1.33 (0.5-1.4) mg/dL Estim Creat Clear Calc 49.4 Estimated GFR 53 Random Glucose 201 H (60-115) mg/dL Calcium 8.5 D (8.4-10.2) mg/dL Total Bilirubin 0.6 (0.0-1.0) mg/dL AST 22 (5-37) U/L ALT 21 (0-40) U/L Alkaline Phosphatase 68 (39-117) U/L Troponin I High Sens 23.4 D (<3.5-35.0) ng/L Total Protein 6.5 (6.5-8.0) g/dL Albumin 3.7 (3.5-5.0) g/dL Lipase 251 H (8-78) U/L Urine Color Yellow Urine Appearance Clear Urine pH 7.0 (5.0-9.0) Ur Specific [place] 1.020 (1.005-1.025) Urine Protein 100 (2+) H (Neg-Trace) mg/dL Urine Glucose (UA) 500 H (Negative) mg/dL Urine Ketones Negative (Negative) mg/dL Urine Blood Trace H (Negative) Urine Nitrite Negative (Negative) Ur Leukocyte Esterase Negative (Negative) Urine RBC 0-2 (0-2) /HPF Urine WBC 0-5 (0-5) /HPF Ur Squamous Epith Cells 0-2 (0-2) /HPF Urine Bacteria None Seen (None Seen) Hyaline Casts 0-2 (0-2) /LPF Influenza Type A (PCR) NEGATIVE (Negative) Influenza Type B (PCR) NEGATIVE (Negative) RSV RNA Qual (PCR) NEGATIVE (Negative) SARS-CoV-2 RNA (RT-PCR) NEGATIVE (Negative) Discharge Plan Discharge Clinical Impression: Nausea, Anxiety Patient Disposition: Home, Self-Care Additional Instructions: Your testing in the emergency room today does not show any obvious explanation for your symptoms. It is possible your symptoms could be related to anxiety and stress. I have sent a prescription for ondansetron, medication you may use for nausea. In order to get a counselor I would recommend that you go to a location at [facility] in [place]. They have walk-in hours during week days during business hours. My understanding is that if you present yourself to this location they do an intake to try to set you up with a therapist. The phone number but usually I am told that they prefer that you simply show up at the office. Otherwise please follow up with your regular doctor. Return to the emergency room if worse. Prescriptions: New ondansetron 4 mg tablet,disintegrating 4 mg PO Q6H PRN (Reason: nausea and vomiting) Qty: 10 0RF No Action metoprolol succinate 100 mg tablet extended release 24 hr 1 tab PO DAILY Testopel 75 mg pellet implant .[id number] tamsulosin 0.4 mg capsule 1 cap PO DAILY amlodipine 10 mg tablet 1 tab PO DAILY lisinopril 40 mg tablet 1 tab PO DAILY rosuvastatin 40 mg tablet 1 tab PO DAILY bupropion HCl 150 mg tablet extended release 24 hr 1 tab PO DAILY (DME) pen needle, diabetic [BD Colette 2nd Gen Pen Needle] 32 gauge x 5/32 needle MISCELLANEOUS DAILY insulin degludec [Tresiba FlexTouch U-200] 200 unit/mL (3 mL) insulin pen 35 unit subcut QPM Rx Instructions: 1/2 dose only Trulicity 1.5 mg/0.5 mL pen injector 1 mg subcut QWEEK chlorpromazine 25 mg tablet 25 mg PO Q6H PRN (Reason: hiccups) Qty: 6 0RF doxycycline hyclate 100 mg capsule 100 mg PO BID 7 Days Qty: 14 0RF donepezil 10 mg tablet 10 mg PO BEDTIME aspirin 81 mg Tablet,Delayed Release (Dr/Ec) 81 mg PO DAILY pantoprazole 20 mg Tablet,Delayed Release (Dr/Ec) 20 mg PO DAILY finasteride 5 mg Tablet 5 mg PO DAILY mirabegron [Myrbetriq] 50 mg Tablet Extended Release 24 Hr 50 mg PO DAILY Cabenuva 600 mg/3 mL- 900 mg/3 mL suspension,extended release 3 ml IM .[id number] doxycycline hyclate 100 mg tablet 100 mg PO DAILY Referrals: Bailey Ingram MD [Primary Care Provider] - (Difficulty eating, possibly secondary to stress and anxiety) Discharge Date/Time: 01/03/25 10:08 Print Language: Kazakh
[2025-01-03 05:49] LABS: Basophils Percent Auto 0.1 % (0-2); Eosinophils Percent Auto 0.1 % (0-4); Hematocrit 45.7 % (42.0-52.0); Imm Gran Abs Auto 0.13 X10*3/uL (0.00-0.03); Lymphocytes Absolute Auto 1.2 X10*3/uL (1.2-4.9); Lymphocytes Percent Auto 9.3 % (20-40); MANUAL DIFF FLAG NO; Mean Corpuscular Hemoglobin 31.3 pg (27.0-33.0); Mean Corpuscular Volume 89.3 fL (80.0-98.0); Mean Platelet Volume 9.1 fL (9.4-12.4); Monocytes Absolute Auto 0.7 X10*3/uL (0.1-1.2); Monocytes Percent Auto 5.6 % (2-11); Neutrophils Absolute Auto 10.8 x10*3/uL (2.0-8.3); Neutrophils Percent Auto 83.9 % (45-73); Platelet Count 166 X10*3/uL (160-400); Red Blood Count 5.12 X10*6/uL (4.60-5.80); White Blood Count 12.8 X10*3/uL (4.8-10.8)
[2025-01-03 06:04] LABS: Alanine Aminotransferase 21 U/L (0-40); Albumin Level 3.7 g/dL (3.5-5.0); Alkaline Phosphatase 68 U/L (39-117); Anion Gap 14 (12-20); Aspartate Amino Transferase 22 U/L (5-37); Bilirubin Total 0.6 mg/dL (0.0-1.0); Blood Urea Nitrogen 24 mg/dL (9-16); Calcium 8.5 mg/dL (8.4-10.2); Carbon Dioxide 22 mmol/L (22-29); Chloride 105 mmol/L (96-108); Creatinine Clr Calc Pharmacy 49.4; Estimated Glomerular Filt Rate 53; Glucose Random 201 mg/dL (60-115); Lipase 251 U/L (8-78); Potassium 3.5 mmol/L (3.3-5.1); Sodium 137 mmol/L (135-145); Total Protein 6.5 g/dL (6.5-8.0)
[2025-01-03 06:09] LABS: Troponin-I High Sensitivity 23.4 ng/L (<3.5-35.0)
[2025-01-03 06:25] LABS: Influenza A PCR NEGATIVE (Negative); Influenza B PCR NEGATIVE (Negative); Resp Syncy Virus RNA Qual PCR NEGATIVE (Negative); SARS COV2 PCR INHOUSE NEGATIVE (Negative)
--- OUTSIDE RECORDS SUMMARY | 2025-01-03 06:25 | XMS_ITS | Encounter Summary ---
Author Organization [facility] Address [address] [place] [address] Phone Care Team Providers Care [employer] Police Name Role Phone Shashi Ingram MD Primary Care Provider [phone]- [phone] Reason for Visit * Reason Comments Med Refill Encounter Details Date Type Department Care Team (Late st Contact Info) Description 08/20/2024 Refill [facility] [address] [place] [phone] Bayron Brandt DO [address] [place] [address] [place] [phone] Social History Tobacco Use Types Packs/Day Years Used Date Smoking Tobacco: Former Cigarettes Q uit: 09/09/1969 Comments:Smoking History Inf o:Every day Alcohol Use Standard Drinks/Week Comments No 0 (1 standard drink = 0.6 oz pur e alcohol) Sex and Gender Information Value Date Recorded Sex Assigned at Not on file Legal Sex Male 4:34 PM EST Gender Identity Not on file Sexual Orientation Not on file documented as of this encounter Plan of Treatment Upcoming Encounters Date Type Department Care Team (Late st Contact Info) Description 01/04/2025 1:30 PM EDT Clinical Support [facility] [address] [place] [phone] 02/17/2025 2:45 PM EDT Office Visit [facility] [address] [place] [address] Bayron Brandt DO [address] [place] [address] documented as of this encounter Visit Diagnoses Not on filedocumented in this encounter Care Teams [employer] Relationship Specialty Start Date End Date Shashi Ingram MD [facility] [place], [place] PCP - General Family Medicine 02/17/21 documented as of this encounter
--- OUTSIDE RECORDS SUMMARY | 2025-01-03 06:25 | XMS_ITS | Encounter Summary ---
Author Organization [facility] [place], Address [address] [place] [address] Phone Care Team Providers Care [employer]estock [employer] Inspector Name Role Phone Shashi Ingram MD Primary Care Provider [phone]- [phone] Encounter Details Date Type Department Care Team (Late st Contact Info) Description 05/10/2023 Documentation Only [facility] [address] [place] [address] Bayron Brandt DO [address] [facility] [address] [facility] [place] [phone] Social History Tobacco Use Types Packs/Day Years [...] Support [facility] [address] [place] [phone] 02/17/2025 2:45 PM EDT Office Visit [facility] [address] [place] [phone] Bayron Brandt DO [address] [place] [address] [place] [address] documented as of this encounter Visit Diagnoses Not on filedocumented in this encounter Care Teams Livestock Brands Inspector Relationship Specialty Start Date End Date Shashi Ingram MD [address] [place] [address] PCP - General Family Medicine 02/17/21 documented as of this encounter
--- OUTSIDE RECORDS SUMMARY | 2025-01-03 06:25 | XMS_ITS | Encounter Summary ---
Author Organization [facility] [place], Address [address] [place] [address] Phone Care Team Providers Care Religious Leader Name Role Phone Shashi Ingram MD Primary Care Provider [phone]- [phone] Encounter Details Date Type Department Care Team (Late st Contact Info) Description 02/13/2024 Documentation Only [facility] [address] [place] [address] Bayron Brandt DO [address] [facility] [place] [place] [phone] Social History Tobacco Use Types Packs/Day Years [...] Support [facility] [address] [place] [phone] 02/17/2025 2:45 PM EDT Office Visit [facility] [address] [place] [phone] Bayron Brandt DO [address] [place] [address] [place] [address] documented as of this encounter Visit Diagnoses Not on filedocumented in this encounter Care Teams Religious Leader Relationship Specialty Start Date End Date Shashi Ingram MD [address] [place] [address] PCP - General Family Medicine 02/17/21 documented as of this encounter
--- OUTSIDE RECORDS SUMMARY | 2025-01-03 06:25 | XMS_ITS | Patient Health Record ---
Author Organization [facility] Address [address] [place] [address] Care Team Providers Care Clay Molder Name Role Phone Bailey Ingram MD Primary Care Provider Concepcion Medina Unavailable [phone] Allergies No Known Allergies Results Component Value Reference Range Notes HEMOGLOBIN A1C (GLYCOHEMOGLO BIN) Reviewed date:01/01/2025 10:57:30 AM Interpretation: Performing Lab: Notes/Report: HEMOGLOBIN A1C % (HH) 6.3 Reason For Referral No Information Medications Medication SIG (Take, Route, Frequency, Duration) Notes Start Date End Date Status FreeStyle Bri 3 Sensor - for 28 Days Active Extra Depth Orthopedic Shoes (1 Pair) with Customized Heat Molded Multidensity Innersoles (3 Pair) as directed Dx: NIDDM/Polyneuropathy (E11.42), Hammertoe Foot Deformity (M20.41,M20.42), Preulcerative Skin Lesion(s) (L85.1 01/01/2025 Active Metoprolol Succinate ER 200 MG Oral for 28 Days Active amLODIPine Besylate 10 MG Oral for 28 Days Active buPROPion HCl ER (XL) 150 MG Oral for 28 Days Active Amoxicillin 500 MG Oral for 7 Days Active Lisinopril 20 MG Oral for 28 Days Active Ibuprofen 800 MG Oral for 7 Days Active Metoprolol Succinate ER 200 MG Oral for 28 Days Active Donepezil HCl 10 MG Oral for 28 Days Active Finasteride 5 MG Oral for 28 Days Active Tresiba FlexTouch 200 UNIT/ML Subcutaneous for 45 Days Act yves Metoprolol Succinate ER 200 MG Oral for 28 Days Not-Taking Social History Tobacco Use: Social History Observation Description Date Details (start date - stop date) Never Smoker NA - NA Tobacco use other than smoking: Question Answer Notes Are you an other tobacco user? No Tobacco Control (Standard) Question Answer Notes Tobacco use: Nonsmoker Additional Findings: Tobacco non-user Current no nsmoker AUDIT-C (Standard) Question Answer Notes Did you have a drink containing alcohol in the p ast year? No Points 0 Interpretation Negative Problems Problem Type SNOMED Code ICD Code Onset Dates Problem Status W/U Status Risk Notes Problem Polyneuropathy due to type 2 diabetes mellitus (167693229) Type 2 diabetes mellitus with diabetic polyneuropathy (E11.42) Active confirmed Vital Signs Blood pressure diastolic 82 mm Hg 01/01/2025 Height 5ft9in in 01/01/2025 Blood pressure systolic 130 mm Hg 01/01/2025 Weight 170 lbs 01/01/2025 BMI 25.1 kg/m2 01/01/2025 Encounters Encounter Location Date Provider Diagnosis [facility] [address] [address] 01/01/2025 Concepcion Koehler Type 2 diabetes mellitus with diabetic polyneuropathy E11.42 ; Other hammer toe(s) (acquired), left foot M20.42 ; Plantar wart B07.0 ; Left foot pain M79.672 and Other hammer toe(s) (acquired), right [facility] [address] 11/13/2024 Concepcion Koehler Assessments Encounter Date Diagnosis (ICD Code) Assessment Notes Treatment Notes Treatment Clinical Notes Section Notes 01/01/2025 Other hammer toe(s) (acquired), left foot (ICD-10 - M20.42) 01/01/2025 Type 2 diabetes mellitus with diabetic polyneuropathy (ICD-10 - E11.42) 01/01/2025 Plantar wart (ICD-10 - B07.0) 01/01/2025 Left foot pain (ICD-10 - M79.672) 01/01/2025 Other hammer toe(s) (acquired), right foot (ICD-10 - M20.41) Patient Educated with: DIABETIC FOOT CARE INSTRUCTIONS. pdf (DIABETIC FOOT CARE INSTRUCTIONS. pdf) Plan Of Treatment Next Appt Details Provider Name:Concepcion Coronado John coronado, 03/16/2025 03:00:00 PM, [address] [place], [address], Insurance Providers Payer Name Payer Address Payer Phone Subscriber Number Group Number Insured Name Patient Relationship to Insured Coverage Start Date Coverage End Date [facility] [employer] Claims [address] [place] [id number] Demetri Cruz Self - patient is the insured Medical (General) History Medical History History ICD Code Angina Back,Hip,and Knee pain CAD (Cholesterol) Dementia Depression Diabetic Heart disease HBP Kidney disease Liver disease Numbness HIV PVD Surgical History Surgery Date(Month/Year) Heart 2011
--- OUTSIDE RECORDS SUMMARY | 2025-01-03 06:25 | XMS_ITS | Encounter Summary ---
Author Organization [facility] [place], Address [address] [place] [address] Phone Care Team Providers Care Employee Communications Specialist Name Role Phone Shashi Ingram MD Primary Care Provider +1- [phone] Encounter Details Date Type Department Care Team (Late st Contact Info) Description 10/03/2022 Documentation Only [facility] [address] [address] Bayron Brandt DO [address] [facility] [place] [phone] Social History Tobacco Use Types Packs/Day Years [...] Support [facility] [address] [place] [phone] 02/17/2025 2:45 PM EDT Office Visit [facility] [address] [place] [phone] Bayron Brandt DO [address] [place] [address] [place] [address] documented as of this encounter Visit Diagnoses Not on filedocumented in this encounter Care Teams Employee Communications Specialist Relationship Specialty Start Date End Date Shashi Ingram MD [address] [place] [address] PCP - General Family Medicine 02/17/21 documented as of this encounter
--- OUTSIDE RECORDS SUMMARY | 2025-01-03 06:25 | XMS_ITS | Encounter Summary ---
Author Organization [facility] Address [address] [place] [address] Care Team Providers Care Community Service Patrol Officer Name Role Phone Bailey Ingram MD Primary Care Provider [phone] Encounter Details Date Type Department Care Team (Late st Contact Info) Description 11/13/2024 Lab Requisition [facility] - Main Lab [address] [place] [address] Deon Pack PA [address] [place] [phone] Testicular hypofunction Social History Tobacco Use Types Packs/Day Years Used Date Smoking Tobacco: Never Assessed Sex and Gender Information Value Date Recorded Sex Assigned at Not on file Legal Sex Male 11:01 PM EST Gender Identity Not on file Sexual Orientation Not on file documented as of this encounter Plan of Treatment Not on file documented as of this encounter Procedures Procedure Name Priority Date/Time Associated Diagnosis Comments COMPLETE BLOOD COUNT Routine 11/13/2024 9:36 AM EST Testicular hypofunction documented in this encounter Results * (ABNORMAL) Complete blood count (11/13/2024 9:36 AM EST) WBC 11.6(H) 4.8 - 10.8 [facility] LAB HEMETOLOGY METHOD 11/13/2024 12:38 PM EST [facility] RBC 5.40 4.50 - 5.50 M/[facility] LAB HEMETOLOGY METHOD 11/13/2024 12:38 PM [facility] Hemoglobin 17.1 13.5 - 17.5 g/dL LAB HEMETOLOGY METHOD 11/13/2024 12:38 PM [facility] Hematocrit 50.4 42.0 - 54.0 % LAB HEMETOLOGY METHOD 11/13/2024 12:38 PM [facility] MCV 92.6 79.0 - 98.0 FL LAB HEMETOLOGY METHOD 11/13/2024 12:38 PM [facility] MCH 31.4 27.0 - 32.0 pcg LAB HEMETOLOGY METHOD 11/13/2024 12:38 PM [facility] MCHC 33.9 32.0 - 37.0 g/dL LAB HEMETOLOGY METHOD 11/13/2024 12:38 PM [facility] RDW 13.5 11.0 - 15.0 % LAB HEMETOLOGY METHOD 11/13/2024 12:38 PM [facility] Platelets 176 130 - 400 K/mcL LAB HEMETOLOGY METHOD 11/13/2024 12:38 PM [facility] MPV 10.0 7.0 - 11.0 FL LAB HEMETOLOGY METHOD 11/13/2024 12:38 PM [facility] NRBC 0.0 <1.0 % LAB HEMETOLOGY METHOD 11/13/2024 12:38 PM [facility] NRBC Absolute 0.00 <0.10 K/mcL LAB HEMETOLOGY METHOD 11/13/2024 12:38 PM [facility] Blood Venous blood specimen / Unknown 11/13/2024 9:36 AM EST 11/13/2024 12:28 PM EST us Deon [facility]BR[facility] LAB BLOOD ORDERABLES Final Res ult [facility] [address] [place] [address], documented in this encounter Visit Diagnoses Diagnosis Testicular hypofunction Other testicular hypofunction documented in this encounter Care Teams Community Service Patrol Officer Relationship Specialty Start Date End Date Bailey Ingram MD [address] [place] [phone] PCP - General Family Medicine 11/13/24 documented as of this encounter
--- OUTSIDE RECORDS SUMMARY | 2025-01-03 06:25 | XMS_ITS ---
Author Organization [facility] Address [address] [place] [address] Care Team Providers Care Dairy Feed Sales Consultant Name Role Phone Bailey Ingram MD Primary Care Provider Concepcion Medina Unavailable [phone] Allergies No Known Allergies REASON FOR VISIT At Risk Footcare, Wart(s), Toe Irritation Medications Medication SIG (Take, Route, Frequency, Duration) Notes Start Date End Date Status Extra Depth Orthopedic Shoes (1 Pair) with Customized Heat Molded Multidensity Innersoles (3 Pair) as directed Dx: NIDDM/Polyneuropathy (E11.42), Hammertoe Foot Deformity (M20.41,M20.42), Preulcerative Skin Lesion(s) (L85.1 01/01/2025 Active Metoprolol Succinate ER 200 MG Oral for 28 Days Active Donepezil HCl 10 MG Oral for 28 Days Active Finasteride 5 MG Oral for 28 Days Active Metoprolol Succinate ER 200 MG Oral for 28 Days Not-Taking FreeStyle Bri 3 Sensor - for 28 Days Active Metoprolol Succinate ER 200 MG Oral for 28 Days Active amLODIPine Besylate 10 MG Oral for 28 Days Active buPROPion HCl ER (XL) 150 MG Oral for 28 Days Active Lisinopril 20 MG Oral for 28 Days Active Amoxicillin 500 MG Oral for 7 Days Active Ibuprofen 800 MG Oral for 7 Days Active Tresiba FlexTouch 200 UNIT/ML Subcutaneous for 45 Days Act yves Social History Tobacco Use: Social History Observation [...] Polyneuropathy due to type 2 diabetes mellitus (034206192) Type 2 diabetes mellitus with diabetic polyneuropathy (E11.42) Active confirmed Vital Signs Height 5ft9in in 01/01/2025 Weight 170 lbs 01/01/2025 BMI 25.1 kg/m2 01/01/2025 Blood pressure systolic 130 mm Hg 01/02/20 Blood pressure diastolic 82 mm Hg 025 Encounters Encounter Location Date Provider Diagnosis [facility] [address] [place] [address] 01/01/2025 Concepcion Koehler Type 2 diabetes mellitus with diabetic polyneuropathy E11.42 ; Other hammer toe(s) (acquired), left foot M20.42 ; Plantar wart B07.0 ; Left foot pain M79.672 and Other hammer toe(s) (acquired), right foot M20.41 Assessments Encounter Date Diagnosis (ICD Code) Assessment Notes Treatment Notes Treatment Clinical Notes Section Notes 01/01/2025 Type 2 diabetes mellitus with diabetic polyneuropathy (ICD-10 - E11.42) 01/01/2025 Other hammer toe(s) (acquired), left foot (ICD-10 - M20.42) 01/01/2025 Plantar wart (ICD-10 - B07.0) 01/01/2025 Left foot pain (ICD-10 - M79.672) 01/01/2025 Other hammer toe(s) (acquired), right foot (ICD-10 - M20.41) Patient Educated with: DIABETIC FOOT CARE INSTRUCTIONS. pdf (DIABETIC FOOT CARE INSTRUCTIONS. pdf) Plan Of Treatment Medication Medication Name Sig Start Date Stop Date Notes Extra Depth Orthopedic Shoes (1 Pair) with Customized Heat Molded Multidensity Innersoles (3 Pair) as directed Dx: NIDDM/Polyneuropathy (E11.42), Hammertoe Foot Deformity (M20.41,M20.42), Preulcerative Skin Lesion(s) (L85.1 01/01/2025 Treatment Notes Assessment Notes Other hammer toe(s) (acquired), right fo ot Patient Educated with: DIABETIC FOOT CARE INSTRUCTIONS.pdf (DIABETIC FOOT CARE INSTRUCTIONS.pdf) Next Appt Details Follow Up: 2 Months, Reason: Provider Name:Concepcion coronado, 03/16/2025 03:00:00 PM, [address] [place], [address], Procedure Notes * Category Sub-Category Detail Notes Wart Treatment Procedure Verruca, as desc ribed in exam, were debrided to pin-point bleeding margins with sterile 15 surgical blade, silver nitrate chemocautery applied, recomm. immune-boosting meds such as zinc, recomm. follow up with topical chemosurgical agents, Pt defers any other forms of tx - 30221 Nail Reduction Nail Reduction (-27) Trimming o f all dystrophic nails - Due to the at risk nature of the patients medical condition as documented in the exam findings, performance of this nail treatment is medically necessary as its management by an unskilled/untrained nonprofessional would put this patients foot and overall health at risk. Therefore, the dystrophic nails, in locations as stated and described in the exam ( TA, T1, T2, T3, T4, T5, T6, T7, T8, T9, ), were debrided by the phisician of record to reduce/remove overall nail length and girth, by manual and electrical means with use of a nail nipper and/or dremel, to more viable healthy nail plate or bed tissue - G0127 Progress Notes * Demetri CRUZDOB:1950 (74 yo M)Acc No.[id number]:01/01/2025 Progress Notes Patient:?CRUZDemetri Provider:?Concepcion Koehler DPM :1950???Age:74 Y???Sex:Male [place] e:01/01/2025 Address:[address] [place] [address] [address], [facility] Pcp:Bailey Ingram MD Subjective: * Chief Complaints: * ???At Risk FootcareWart(s)To e Irritation * HPI: ???At Risk footcare:?Pt States Last PCP Visit:?Date?10/28/2024 ???Skin problems:?Pt States PCP Visit: ?DATE?10/28/2024 ???Toe pain:?Location:?B/L feet.?Duration:?several years.?Course:?worse.?Aggravated by:?shoes, any pressure.?Treatments:?change in shoes.? * ROS:?General/Constitutional:?Nausea?denies.?Vomiting?denies.?Hunger Thirst?denies.?Loss appetite?denies.?Chills?denies.?Fatigue?denies.?Fever?denies.?Night Sweats?denies.?Unexplained weight loss?denies.?Unexplained weight gain?denies.?HEENTM:?Dentures?denies.?Dizziness?denies.?Glasses/contacts?denies.?Retinopathy?den ies.?Blurred/double vision?denies.?TMJ?denies.?Discharge/drainage?denies.?Implants?denies.?Sore throat?denies.?Dental implants?denies.?Hard of hearing ?denies.?Difficulty chewing/swallowing/speaking?denies.?Nose bleeds?denies.?Sore mouth?denies.?Respiratory:?On O xygen?denies.?Pneumonia/pleurisy?denies.?Bronchitis?denies.?Emphysema?denies.?Co ughing?denies.?Cough blood?denies.?Shortness of breath?denies.?Wheezing?denies.?Cardiovascular:?Pacemaker?denies.?MVP?denies.?WPW?denies.?CHF?denies.?Heart attack?denies.?Septal defect?denies.?Rapid beat?denies.?Chest pain ?denies.?Atrial Fib.?denies.?Murmur/Palpitations?denies.?Gastrointestinal:?Hemorrhoids?denies.?Stomach/Abdominal pain?denies.?Dark blood stool?denies.?Irritable bowel ?denies.?Constipation?denies.?Diarrhea?denies.?Hematology:?Swelling?denies.?Clots?denies.?Varicose Veins?denies.?Bruising?denies.?Bleeding problem?denies.?Genitourinary:?Blood urine?denies.?Frequent/Painfu/urination/bladder control?denies.?Kidney stones?denies.?Infection (UTI)?denies.?Nephropathy?denies.?sex trans dis (STD)?denies.?Prostate?denies.?Musculoskeletal:?Hammertoes?denies.?Bunions?denies.?Back Pain?denies.?Muscle Cramps/ Resting?denies.?Muscle cramps / walking?denies.?Generalized aches and pains?denies.?Weakness?denies.?Integ.:?Chen?denies.?Scars?denies.?Corns/calluses?denies.?Ingrown nails?denies.?Painful nails?denies.?Open Sores?denies.?Rashes?denies.?Neurologic:?Difficulty sleeping?denies.?Brain disorder?denies.?Numbness?denies.?Balance t rouble?denies.?Confusion?denies.?Fainting/blackouts?denies.?Tingling?denies.?Pedro mors?denies.? * Medical History:? * Surgical History:?Heart 2009 , 2011 * Hospitalization/Major Diagno stic Procedure:?Denies Past Hospitalization * Family History:?Mother: dece ased, diagnosed with Family history of arthritis.?Father: , diagnosed with Other malignant neoplasm of unspecified site.? * Social History:?Tobacco Use:?Tobacco use other than smoking?Are you an other tobacco user??No ?Tobacco Control (Standard)?Tobacco use:?Nonsmoker ?Additional Findings: Tobacco non-user?Current nonsmoker ???Drugs/Alcohol:?Drugs?Have you used drugs other than those for medical reasons in the past 12 months??No ???Miscellaneous:?Caffeine: yes. ?Children: yes. ?Exercise: no. ?Marital status: . ?Occupation: Retired. ???Drug/Alcohol:?AUDIT-C (Standard)?Did you have a drink containing alcohol in the past year??No ?Points?0 ?Interpretation?Negative * Medications:?TakingTresiba F lexTouch 200 UNIT/ML Solution Pen-injector Subcutaneous Ibuprofen 800 MG Tablet Oral Amoxicillin 500 MG Capsule Oral Lisinopril 20 MG Tablet Oral FreeStyle Bri 3 Sensor - Miscellaneous Metoprolol Succinate ER 200 MG Tablet Extended Release 24 Hour Oral amLODIPine Besylate 10 MG Tablet Oral buPROPion HCl ER (XL) 150 MG Tablet Extended Release 24 Hour Oral Metoprolol Succinate ER 200 MG Tablet Extended Release 24 Hour Oral Donepezil HCl 10 MG Tablet Oral Finasteride 5 MG Tablet Oral Taking Tresiba FlexTouch 200 UNIT/ML Solution Pen-injector Subcutaneous Taking Ibuprofen 800 MG Tablet Oral Taking Amoxicillin 500 MG Capsule Oral Taking Lisinopril 20 MG Tablet Oral Taking FreeStyle Bri 3 Sensor - Miscellaneous Taking Metoprolol Succinate ER 200 MG Tablet Extended Release 24 Hour Oral Taking amLODIPine Besylate 10 MG Tablet Oral Taking buPROPion HCl ER (XL) 150 MG Tablet Extended Release 24 Hour Oral Taking Metoprolol Succinate ER 200 MG Tablet Extended Release 24 Hour Oral Taking Donepezil HCl 10 MG Tablet Oral Taking Finasteride 5 MG Tablet Oral Not-Taking/PRNMetoprolol Succinate ER 200 MG Tablet Extended Release 24 Hour Oral Medication List reviewed and reconciled with the patientNot-Taking/PRN Metoprolol Succinate ER 200 MG Tablet Extended Release 24 Hour Oral Medication List reviewed and reconciled with the patient * Allergies:?N.K.D.A.yes[Aller gies Verified] Objective: * Vitals:?Ht: 5ft9in, Wt:170, BMI:25.1, Shoe size: 9.5, BP:130/82mm Hg, BS: not taken, Ht-cm: 175.26 cm, Wt-k.11 kg. * ???Past Orders: ???Lab:HEMOGLOBIN A1C (GLYCO HEMOGLOBIN) (Order Date - 10/10/2024) (Collection Date & Time - 10/10/2024 10:56 AM) ? Value Reference Range ?HEMOGLOBIN A1C % (HH) 6.3 * Examination: ???Ophthalmology Referral: ?DIABETES EYE EXAM?Procedure Performed:?Yes ?Date of Exam Performed?03/09/2024 ?Findings of Diabetic Eye Exam:?no retinopathy?Neurological: ?SENSORY:?Neurological exam demonstrates, reduced light touch sensation, reduced sharp/dull discrimination , reduced vibration sensation, in a stocking fashion, B/L, 5.07 monofilament test performed at plantar aspects of 5 varied sites per foot shows sensation, reduced, B/L.?Nails: ?NAILS are:?Elongated, overgrown, dystrophic, TA, T1, T2, T3, T4, T5, T6, T7, T8, T9.?Dermatologic: ?VERRUCA:?Reveals Multiple ( 2 ), multi-loculated , mosaic-patterned, round, raised, flat-topped, petechial bleeding papule(s), with cauliflower appearance and interruption of skin lines, with pain to lateral compression, and size estimated at 4 mm diameter, LEFT, 3rd toe, , plantar Forefoot.?Orthopedic: ?MUSCLE STRENGTH:?5/5 all groups in a symmetrical fashion, B/L.?DIGITAL DEFORMITIES:?Digital contracture, PIPJ, 2-5 B/L, incompl-reducible to push-up test, no over, nor underlapping,?there is?evidence of shoe producing skin irritation.?FOOTWEAR EVALUATION:?worn, non-supportive, shoe gear properties exacerbate patient's foot/toe deformity.?Vascular: ?DP PULSES (B):?3/4, B/L.?PT PULSES (B):?3/4, B/L.?CAPILLARY FILL TIME:?immediate, all digits, B/L.?TROPHIC CONDITION-TEXTURE/ELASTICITY/TURGOR/HAIR GROWTH (B):?normal, B/L.?TEMPERTURE GRADIENT (C):?normal, warm to cool, proximal to distal, B/L, B/L.?PIGMENTATION:?normal, B/L.?EDEMA (C):?absent, B/L.?General Examination: ?GENERAL APPEARANCE:?Reveals a pleasant, alert, well nourished, well- developed, well hydrated individual, who demonstrates proper attention to hygiene/body habitus, and is in no acute distress, Pt serves as own historian for office visit today.?ORIENTED:?person, place, and time.?FOOT EXAM:?Lower Extremity Neurological Exam performed:?Yes Date ?Visual exam of foot performed:?Yes ?Date?01/01/2025 ?Footwear Evaluation?Footwear Evaluation performed:?Yes??? Assessment: * Assessment: 1.?Other hammer toe(s) (acqu ired), left foot - M20.42 (Primary)???Specify :Chronic problem, Worse (4),Rx Management (4)???2.?Type 2 diabetes mellitus with diabetic polyneuropathy - E11.42???3.?Plantar wart - B07.0???4.?Left foot pain - M79.672?? 5.?Other hammer toe(s) (acquired), right foot - M20.41???Specify :Chronic problem, Worse (4),Rx Management (4)??? Plan: * Treatment: * Procedures:?Wart Treatment:?Procedure?Verruca, as described in exam, were debrided to pin-point bleeding margins with sterile 15 surgical blade, silver nitrate chemocautery applied, recomm. immune-boosting meds such as zinc, recomm. follow up with topical chemosurgical agents, Pt defers any other forms of tx - 36994.?Nail Reduction:?Nail Reduction?(-27) Trimming of all dystrophic nails - Due to the at risk nature of the patients medical condition as documented in the exam findings, performance of this nail treatment is medically necessary as its management by an unskilled/untrained nonprofessional would put this patients foot and overall health at risk. Therefore, the dystrophic nails, in locations as stated and described in the exam ( TA, T1, T2, T3, T4, T5, T6, T7, T8, T9, ), were debrided by the phisician of record to reduce/remove overall nail length and girth, by manual and electrical means with use of a nail nipper and/or dremel, to more viable healthy nail plate or bed tissue - G0127.? * Procedure Codes:?G0127 [place] ING DYSTROPHIC NAILS ANY #, Modifiers: XS [id number] Wart Destruction, 1-14, Modifiers: XS * Preventive Medicine:? ??Counseling:?Discussion:?-04: Office or other outpatient visit for the evaluation and management of a new patient, which required a medically appropriate history and/or examination and MODERATE level of DECISION MAKING for: 1 OR MORE CHRONIC PROBLEM(S) THATS WORSENING, 2 STABLE CHRONIC PROBLEMS, A NEWLY DIAGNOSED PROBLEM WITH UNCERTAIN PROGNOSIS, AN ACUTE COMPLICATED INJURY WITH MULTIPLE TREATMENT OPTIONS, OR AN ACUTE PROBLEM WITH ACCOMPANYING SYSTEMIC SYMPTOMS, THAT POSE(S) A MODERATE RISK OF MORBIDITY. THIS CONDITION MAY ALSO INCLUDE RX DRUG MANAGEMENT, OR A DECISON FOR MINOR SURGERY. The visit on the day of the encounter encompassed interpreting the data and educating the patient as to the nature of their condition, treatment options available according to their individual PMH, meds, allergies, and overall health/living conditions, as well as any potential risks or complications that may occur from a failure to adhere to, and participate in, the recommended course of therapy. The discussion included a complete verbal, and/or written explanation of the examination results, any x-rays taken, the proposed diagnosis, and outline of the treatment plan. A schedule for future care needs was also explained. The patient verbalized an understanding of the instructions at this time and agreed to be an active participant in their treatment. If the patient should think of any questions or concerns after the visit, I have encouraged the patient to call the office.?Digital Surgery:?Digital surgery was discussed with the patient, We elected to try conservative treatment at the present time, due to the patients medical history and increased asssociated post-operative risks.?Digital Treatment:?HT- I explained to the patient the possible etiologies of Hammertoes, including genetics/foot type/shoegear/activity level/exercise routine and the risks/benefits of all the different treatment options for their pain including: No treatment at all, Rest, Ice, New/supportive/wider/deeper Shoegear, Digital Padding/Strapping/Taping/Bracing/Gel protective sleeves, Foot/Ankle AFO Bracing, Stretching exercises, Deep Tissue Massage, Arch support/shoe inserts with splay metatarsal padding, and Custom orthoses. I insisted that any digital devices be removed daily and not worn overnight for safety. The patient is to carefully examine the toes daily for any skin irritation while using any splinting or padding device. The advantages and disadvantages of each option were discussed and the patients questions re: shoegear, padding, custom vs prefabricated inserts, activity level, and consistency in home treatment regimens for optimal success were answered to their verbally confirmed satisfaction.?Shoe Gear Counseling:?SHOE Rx - The patient was counseled in great detail on their muscoloskeletal foot and toe deformities which coincided with the dermatological presentations visualized on exam. We discussed how their deformities put the integrity of their feet at risk for potential pedal complications which makes the accomidative diabetic shoes and cutomizable inserts medically necessary. We discussed the different shoe and insert treatment types and options, as well as the important advantages for adhering to regularly wearing these accomidative devices daily. The patient was made aware of the fact that a failure to abide by these recommedations may be deleterious to their foot health as they are able to prevent many pedal complications such as skin irritation, skin ulceration, infection, and even loss of toe/foot/leg/or life. Time was also spent with the patient dispensing and discussing proper diabetic footcare techniques including daily skin moisturization, daily foot inspection for any interruption in skin integrity including open lesions, or sign of infection such as redness/malodor/drainage/swelling. Also discussed and recommended were procedures regarding daily shoe inspection for the presence of internal foreign bodies as well as any visualized irregular shoe or insert wear. Patient questions re: shoes, inserts, and self foot inspections were answered to their satisfaction as the patient verbally confirmed a full understanding of the above information. A Rx for Extra Depth Orthopedic Shoes with 3 pair of custom heat-molded inserts was dispensed.? ??Screening/Special Tests:?Fall Risk?Screening:?No falls in the past year ?FALLS: Screening for Future Fall Risk?Have you had any falls with injury in the past year??No * Follow Up:?2 Months * Images: * Sign off status: Completed true * Provider:?Concepcion Koehler DPM Date:? Generated for Jillian argueta/Huong/Troy on:?01/03/2025 06:24 AM EDT History and Physical Notes * HPI (History of Present Illness) Category Sub-Category Detail Notes Category Not es Toe pain Location: B/L feet Duration: several years Course: worse Aggravated by: shoes, any pressure Treatments: change in shoes Skin problems Pt States PCP Visit: DATE: 10/28/2024 At Risk footcare Pt States Last PCP Visit: Date: 5 Examination Category Sub-Category Detail Notes Category Not es Neurological SENSORY: Neurological exa m demonstrates, reduced light touch sensation, reduced sharp/dull discrimination , reduced vibration sensation, in a stocking fashion, B/L, 5.07 monofilament test performed at plantar aspects of 5 varied sites per foot shows sensation, reduced, B/L Dermatologic VERRUCA: Reveals Multiple ( 2 ), multi-loculated , mosaic-patterned, round, raised, flat-topped, petechial bleeding papule(s), with cauliflower appearance and interruption of skin lines, with pain to lateral compression, and size estimated at 4 mm diameter, LEFT, 3rd toe, , plantar Forefoot Orthopedic FOOTWEAR EVALUATION: worn, non-s upportive, shoe gear properties exacerbate patient's foot/toe deformity DIGITAL DEFORMITIES: Digital contracture , PIPJ, 2-5 B/L, incompl-reducible to push-up test, no over, nor underlapping, there is evidence of shoe producing skin irritation MUSCLE STRENGTH: 5/5 all groups in a symmetrical fashion, B/L General Examination GENERAL APPEARANCE: Reveals a pleasant, alert, well nourished, well-developed, well hydrated individual, who demonstrates proper attention to hygiene/body habitus, and is in no acute distress, Pt serves as own historian for office visit today FOOT EXAM: Lower Extremity Neurological Exa m performed:: Yes Date Visual exam of foot performed:: Yes Date: 01/01/2025 ORIENTED: person, place, and t [place] Footwear Evaluation Footwear Evaluation performe d:: Yes Ophthalmology Referral DIABETES EYE EXAM Procedure Perform ed:: Yes ?Date of Exam Performed: 03/09/2024 Findings of Diabetic Eye Exam:: no retin opathy Vascular DP PULSES (B): 3/4, B/L PT PULSES (B): 3/4, B/L CAPILLARY FILL TIME: immediate, all digi ts, B/L TEMPERTURE GRADIENT (C): normal, warm to cool, proximal to distal, B/L, B/L TROPHIC CONDITION-TEXTURE/ELASTICITY/TURGOR/HAIR GROWTH (B): normal, B/L EDEMA (C): absent, B/L PIGMENTATION: normal, B/L Nails NAILS are: Elongated, overg rown, dystrophic, TA, T1, T2, T3, T4, T5, T6, T7, T8, T9
--- OUTSIDE RECORDS SUMMARY | 2025-01-03 06:25 | XMS_ITS | Encounter Summary ---
Author Organization [facility] [place], Address [address] [place] [address] Phone Care Team Providers Care Oyster Floater Name Role Phone Shashi Ingram MD Primary Care Provider +1- [phone] Encounter Details Date Type Department Care Team (Late st Contact Info) Description 06/17/2020 Orders Only [facility] [address] [place] [phone] Bayron Brandt, [address] [place] [phone] Benign prostatic hyperplasia; Type 2 diabetes mellitus with diabetic chronic kidney disease (HCC); Acute injury of kidney (HCC); Chronic kidney disease stage 3; Coronary arteriosclerosis, not otherwise specified; Microalbuminuria; Obstructive sleep apnea syndrome; Hypertension Social History Tobacco Use Types Packs/Day Years Used Date Smoking Tobacco: Former Alcohol Use Standard Drinks/Week Comments No 0 [...] Support [facility] [address] [place] [phone] 02/17/2025 2:45 PM EDT Office Visit [facility] [address] [place] [address] Bayron Brandt DO [address] [place] [address] documented as of this encounter Procedures Procedure Name Priority Date/Time Associated Diagnosis Comments RENAL FUNCTION PANEL Routine 05/20/2020 8:17 AM EDT Benign prostatic hyperplasia Type 2 diabetes mellitus with diabetic chronic kidney disease (HCC) Acute injury of kidney (HCC) Chronic kidney disease stage 3 (HCC) Coronary arteriosclerosis, not otherwise specified Microalbuminuria Obstructive sleep apnea syndrome Hypertension documented in this encounter Results * (ABNORMAL) Renal Function Panel (05/20/2020 8:17 AM EDT) Glucose 74 (70-99) MG/DL [facility] BUN 24(H) (8-23) MG/DL [facility] Creatinine 2.6(H) (0.7-1.2) MG/DL [facility] Sodium 140 (133-145) MMOL/L [facility] Potassium 3.7 (3.6-5.2) MMOL/L [facility] Chloride 96(L) (98-107) MMOL/L [facility] Bicarbonate (CO2) 27 (22-29) MMOL/L [facility] Anion Gap 17 (4-17) [facility] Albumin 4.7 (3.4-4.8) GM/DL [facility] Calcium 10.2 (8.6-10.5) MG/DL [facility] Phosphorus, Serum 4.1 (2.5-4.5) MG/DL [facility] Est GFR Non 24 ML/MIN/1.7 3 M2 [facility] Comment: Creatinine based estimated glomerular filtration rate (eGFR) is calculated using the Chronic Kidney Disease Epidemiology Collaboration (CKD-EPI). The CKD-EPI creatinine equation has not been validated in children (<18 years), women or in some racial or ethnic subgroups other than Caucasians and Americans. EST GFR 28 ML/MIN/1.7 3 M2 [facility] Comment: Creatinine based estimated glomerular filtration rate (eGFR) is calculated using the Chronic Kidney Disease Epidemiology Collaboration (CKD-EPI). The CKD-EPI creatinine equation has not been validated in children (<18 years), women or in some racial or ethnic subgroups other than Caucasians and Americans. Testing performed or reported by [facility], a Service of [facility], [address] [place] [id number] Edilson Jackson MD, Rate Manager Blood (Blood, Venous) 05/20/2020 8:17 AM EDT 05/20/2020 10:03 AM EDT us Bayron Brandt DO LAB BLOOD ORDERABLES Final Resu lt [facility] documented in this encounter Visit Diagnoses Diagnosis Benign prostatic hyperplasia Type 2 diabetes mellitus with diabetic chronic kidney disease (HCC) Acute injury of kidney Chronic kidney disease stage 3 (HCC) Coronary arteriosclerosis, not otherwise specified Microalbuminuria Obstructive sleep apnea syndrome Hypertension documented in this encounter Care Teams Oyster Floater Relationship Specialty Start Date End Date Shashi Ingram MD [address] [place] [address] PCP - General Family Medicine 02/17/21 documented as of this encounter
--- OUTSIDE RECORDS SUMMARY | 2025-01-03 06:25 | XMS_ITS | Clinical Summary ---
Author Organization [address] [facility] Address [address] [place] [address] Phone Care Team Providers Care Imaging Account Manager Name Role Phone Bailey Ingram MD Primary Care Provider +1 -[phone] Encounters Date Type Department Care Team Description 11/13/2024 Lab Requisition [facility] [address] [facility] [place] [address] Deon Pcak, PA Testicular hypofunction from Last 3 Months Social History Tobacco Use Types Packs/Day Years Used Date Smoking Tobacco: Never Assessed Sex and Gender Information Value Date Recorded Sex Assigned at Not on file Legal Sex Male 11:01 PM EST Gender Identity Not on file Sexual Orientation Not on file Plan of Treatment Health Maintenance Due Date Last Done Comments DTaP,Tdap,and Td Vaccines (1 - Tdap) 1970 Pneumococcal Vaccine: 50+ Ye ars (1 of 1 - PCV) 2001 Zoster Vaccines (1 of 2) 2001 Abdominal Aortic Aneurysm (A AA) Screen 08/12/2022 Cholesterol Screening (Lipid Panel) 08/12/2022 Colorectal Cancer Screening: Colonoscopy 08/12/2022 Depression Screening 08/12/2022 Falls Risk Assessment 08/12/2022 Hepatitis C Screening 08/12/2022 Social Influencers of Health Screening 08/12/2022 COVID-19 Vaccine (2023-2 5 season) 2024 Influenza Vaccine (Season Ended) 2025 RSV Immunization Adult Patie nts (1 - 1-dose 75+ series) 2026 HIB Vaccines Aged Out No longer eligi ble based on patient's age to complete this topic HPV Vaccines Aged Out No longer eligi ble based on patient's age to complete this topic Hepatitis A Vaccines Aged Out No long er eligible based on patient's age to complete this topic Hepatitis B Vaccines Aged Out No long er eligible based on patient's age to complete this topic IPV Vaccines Aged Out No longer eligi ble based on patient's age to complete this topic MMR Vaccines Aged Out No longer eligi ble based on patient's age to complete this topic Meningococcal ACWY Vaccine Aged Out N o longer eligible based on patient's age to complete this topic Meningococcal B Vaccine Aged Out No l onger eligible based on patient's age to complete this topic RSV Immunization Patients Un natacha 20 months Aged Out No longer eligible b ased on patient's age to complete this topic Varicella Vaccines Aged Out No longer eligible based on patient's age to complete this topic Procedures Procedure Name Priority Date/Time Associated Diagnosis Comments COMPLETE BLOOD COUNT Routine 11/13/2024 9:36 AM EST Testicular hypofunction from Last 3 Months Results * (ABNORMAL) Complete blood count (11/13/2024 9:36 AM EST) WBC 11.6(H) 4.8 - 10.8 K/mcL LAB HEMETOLOGY METHOD 11/13/2024 12:38 PM [facility] RBC 5.40 4.50 - 5.50 M/mcL LAB HEMETOLOGY METHOD 11/13/2024 12:38 PM [facility] Hemoglobin 17.1 13.5 - 17.5 g/dL LAB HEMETOLOGY METHOD 11/13/2024 12:38 PM [facility] Hematocrit 50.4 42.0 - 54.0 % LAB HEMETOLOGY METHOD 11/13/2024 12:38 PM [facility] MCV 92.6 79.0 - 98.0 FL LAB HEMETOLOGY METHOD 11/13/2024 12:38 PM [facility] MCH 31.4 27.0 - 32.0 pcg LAB HEMETOLOGY METHOD 11/13/2024 12:38 PM [facility] MCHC 33.9 32.0 - 37.0 g/dL LAB HEMETOLOGY METHOD 11/13/2024 12:[address] [facility] RDW 13.5 11.0 - 15.0 % LAB HEMETOLOGY METHOD 11/13/2024 12:38 PM [facility] Platelets 176 130 - 400 K/mcL LAB HEMETOLOGY METHOD 11/13/2024 12:38 PM [facility] MPV 10.0 7.0 - 11.0 FL LAB HEMETOLOGY METHOD 11/13/2024 12:[address] [facility] NRBC 0.0 <1.0 % LAB HEMETOLOGY METHOD 11/13/2024 12:38 PM [facility] NRBC Absolute 0.00 <0.10 K/mcL LAB HEMETOLOGY METHOD 11/13/2024 12:38 PM [facility] Blood Venous blood specimen / Unknown 11/13/2024 9:36 AM EST 11/13/2024 12:28 PM EST us Deon R Sirena PA LAB BLOOD ORDERABLES Final Res ult [facility] [address] [place] [address], [place] [phone] from Last 3 Months Insurance MEDICAID - [place] [employer] Member Subscriber Plan / Payer (Ef fective 2024-Present) Name:Demetri Cruz Relation to Subscriber:Self Name:Demetri Cruz Payer ID:[id number] Group ID:[id number] Type:Not on file Address: [place] [address] [address] [place] [address] Care Teams Imaging Account Manager Relationship Specialty Start Date End Date Bailey Ingram MD [address] [place] [phone] PCP - General Family Medicine 11/13/24
--- OUTSIDE RECORDS SUMMARY | 2025-01-03 06:25 | XMS_ITS | Encounter Summary ---
Author Organization [facility] [place], Address [address] [place] [address] Phone Care Team Providers Care Planting Machine Operator Name Role Phone Shashi Ingram MD Primary Care Provider +1- [phone] Encounter Details Date Type Department Care Team (Late st Contact Info) Description 06/19/2024 Documentation Only [facility] [address] [place] [address] Bayron Brandt DO [address] [facility] [place] [phone] Social History Tobacco Use Types Packs/Day Years [...] Support [facility] [address] [place] [phone] 02/17/2025 2:45 PM EDT Office Visit [facility] [address] [place] [phone] Bayron Brandt DO [address] [place] [address] [place] [address] documented as of this encounter Visit Diagnoses Not on filedocumented in this encounter Care Teams Planting Machine Operator Relationship Specialty Start Date End Date Shashi Ingram MD [address] [place] [address] PCP - General Family Medicine 02/17/21 documented as of this encounter
--- OUTSIDE RECORDS SUMMARY | 2025-01-03 06:25 | XMS_ITS | Clinical Summary ---
Author Organization [facility], Address [address] [place] [place] [address] Phone Care Team Providers Care Master Baker Name Role Phone Shashi Ingram MD Primary Care Provider +1- [phone] Allergies No known active allergies Medications aspirin (ASPIR) 81 MG EC tablet Take 1 tablet by mouth 1 (one) time each day Active rosuvastatin (CRESTOR) 40 MG tablet Take 1 tablet by mouth 1 (one) time each day Active TESTOPEL 75 MG pellet Patient gets 300 mg subcutaneous infusion every three months 9 Active Eliquis 5 MG tablet Take 5 mg by mouth 2 Active Continuous Blood Gluc Professional Volleyball Player (FreeStyle Bri 2 [place]) device 1 Device 4 times a day Use 1 reader to check blood sugars via sensor 4 times daily dx code e11.21 1 each 3 Active Blood Glucose Monitoring Suppl (FreeStyle Lite) w/Device kit 1 Device 4 times a day Use 1 glucometer to check blood sugars 4 times a day dx code e11.21 1 kit 3 Active insulin degludec (Tresiba FlexTouch) 200 UNIT/ML injection Inject 30 Units under the skin 1 (one) time each day For diabetes dx code e11.21 15 mL 3 3 Active insulin aspart (NovoLOG FLEXPEN) 100 UNIT/ML injection Inject 5 Units under the skin in the morning and 5 Units at noon and 5 Units in the evening. Inject before meals. For diabetes dx code e11.21. 15 mL 5 3 Active amLODIPine (NORVASC) 2.5 MG tablet Take 1 tablet (2.5 mg total) by mouth 1 (one) time each day 30 tablet 3 Active donepezil (ARICEPT) 10 MG tablet Take 1 tablet (10 mg total) by mouth 1 (one) time each day in the evening 30 tablet 3 Active buPROPion XL (WELLBUTRIN XL) 150 MG 24 hr tablet TAKE 1 TABLET (150 MG TOTAL) BY MOUTH IN THE MORNING 30 tablet 3 Active metoprolol succinate XL (TOPROL-XL) 200 MG 24 hr tabletIndicatio ns:Stage 3b chronic kidney disease (HCC),Type 2 diabetes mellitus with diabetic nephropathy (HCC),Hypertens ion TAKE 1 TABLET (200 MG TOTAL) BY MOUTH 1 (ONE) TIME EACH DAY DO NOT CRUSH OR CHEW. 90 tablet 3 4 04/16/20 25 Active lisinopril 20 MG tabletIndicatio ns:Stage 3b chronic kidney disease (HCC),Type 2 diabetes mellitus with diabetic nephropathy (HCC),Hypertens ion TAKE 1 TABLET (20 MG TOTAL) BY MOUTH ONCE DAILY 90 tablet 3 4 Active FREESTYLE LITE test strip Use 1 test strip via glucometer twice daily dx code e11.21 100 each 12 4 Active insulin degludec (Tresiba FlexTouch) 200 UNIT/ML injection Inject 36 Units under the skin every night 9 mL 5 4 08/20/20 25 Active Continuous Glucose Sensor (FreeStyle Bri 3 Sensor) [facility] USE DIRECTED ONCE IN THE MORNING, ONCE IN THE EVENING, AND ONCE BEFORE BEDTIME. DX CODE E11.21. 2 each 5 5 Active Dulaglutide (Trulicity) 1.5 MG/0.5ML solution auto-injector Inject 0.5 mL under the skin per week Dx code e11.21 2 mL 3 5 Active tamsulosin (Flomax) 0.4 MG 24 hr capsule Take 1 capsule (0.4 mg total) by mouth 1 (one) time each day 90 capsule 3 5 10/14/19 26 Active Active Problems Problem Noted Date Diagnosed Date HIV positive 10/21/2020 Acute nontraumatic kidney injury 05/18/2020 Obstructive sleep apnea syndrome 09/23/2019 Hypertension 09/23/2019 Stage 3b chronic kidney disease 08/27/2019 Overview (09/12/2020): Update for Diagnosis Load Coronary arteriosclerosis 08/27/2019 Hyperlipidemia 08/27/2019 Microalbuminuria 08/27/2019 Benign prostatic hyperplasia Type 2 diabetes mellitus Resolved Problems Problem Noted Date Diagnosed Date Resolved Date Chronic kidney disease, stage 4 (severe) 10/21/2020 07/19/2021 Encounters Date Type Department Care Team Description 11/04/2024 1:00 PM EST Clinical Support [facility] [address] [place] [address] Paula Friedman [facility] 10/14/2024 Refill [facility] [address] [place] [address] Heather Singh 10/05/2024 Refill [facility] [address] [place] [address] Bayron Brandt DO from Last 3 Months Immunizations Immunization Administration Dates Next Due Influenza Split High Dose Pr eservative Free IM 06/10/2017,05/26/2015 Influenza Whole 06/13/2019,05/23/2011,06/09/2010 Influenza, Unspecified 10/18/2021,2020,06/09/2018,06/04,06/23/2016,05/25/2014,06/10/2013 ,05/28/2009 Pfizer SARS-COV-2 01/01/2021,12/10/2020 Pneumococcal Conjugate 13-Valent 10/03/2016,02/07 Pneumococcal Polysaccharide 05/28/2009 Tetanus 05/23/2011 Family History Medical History Relation Comments Cancer Father Dementia Mother Diabetes type II Mother Heart disease Mother Hyperlipidemia Mother Hypertension Mother Skin cancer Mother Relation Status Comments Father Mother Social History Tobacco Use Types Packs/Day Years [...] on file Sexual Orientation Not on file Last Filed Vital Signs Vital Sign Reading Time Taken Comments Blood Pressure 128/72 08/19/2024 3:21 PM EST Pulse 70 08/19/2024 3:21 PM EST Temperature - - Respiratory Rate - - Oxygen Saturation - - Inhaled Oxygen Concentration - - Weight 89.8 kg (198 lb) 02/17/2021 3:46 PM EDT Height 177.8 cm (5' 10 ) 09/23/2019 3:32 PM EST Body Mass Index 28.41 09/23/2019 3:32 PM EST Plan of Treatment Upcoming Encounters Date Type Department Care Team (Late st Contact Info) Description 01/04/2025 1:30 PM EDT Clinical Support [facility] [address] [place] [address] 02/17/2025 2:45 PM EDT Office Visit [facility] [address] [place] [address] Bayron Brandt DO [address] [place] [address] [place] [phone] Health Maintenance Due Date Last Done Comments Colorectal Cancer Screening: Annual FOBT 2000 Colorectal Cancer Screening: Colonoscopy 2000 Colorectal Cancer Screening: Sigmoidoscopy 2000 Hepatitis B Vaccine (1 of 3 - Risk 3-dose series) 2011 Diabetes: Ophthalmology Exam 08/27/2019 Diabetes: Pedal Pulse Checked 08/27/2019 Diabetes: Sensory Foot Exam 08/27/2019 Diabetes: Visual Foot Exam 08/27/2019 Diabetes: Hemoglobin A1C 01/17/2025 025, 06/12/2024, 08/15/2023, Additional history exists Influenza Vaccine (Season Ended) 2025 10/18/2021, 07/10/2021, 06/13/2019, Additional history exists Pneumococcal Vaccine: 50+ Years Completed 03/28/2023, 10/03/2016, 02/16/2015, Additional history exists Pneumococcal Vaccine: Peds ( 0 to 5 Years) and At-Risk Patients (6 to 49 Years) Discontinued 03/28/2023, 10/03/2016, 02/16/2015, Additional history exists Procedures Procedure Name Priority Date/Time Associated Diagnosis Comments URINE ALBUMIN / CREATININE RATIO Routine 10/20/2024 10:31 AM EST Type 2 diabetes mellitus with diabetic chronic kidney disease (HCC) RENAL FUNCTION PANEL Routine 10/20/2024 10:31 AM EST Type 2 diabetes mellitus with diabetic chronic kidney disease (HCC) CBC Routine 10/20/2024 10:31 AM EST Type 2 diabetes mellitus with diabetic chronic kidney disease (HCC) HEMOGLOBIN A1C Routine 10/20/2024 10:31 AM EST Type 2 diabetes mellitus with diabetic chronic kidney disease (HCC) from Last 3 Months Results * (ABNORMAL) Urine Albumin / Creatinine Ratio (10/20/2024 10:31 AM EST) Creatinine, Ur 128.3 Not Estab. mg/dL [facility] Albumin, Urine 619.3 Not Estab. ug/mL [facility] Comment: Results confirmed on dilution. Albumin/Creatin ine Ratio 483(H) 0 - 29 mg/g creat [facility] Comment: ? Normal: ?0 - ??29 ? Moderately increased: 30 - 300 ? Severely increased: ? >300 Urine (Urine, Clean Catch) 10/20/2024 10:31 AM EST 10/20/2024 us Bayron Brandt DO LAB URINE ORDERABLES Final Resu lt [facility] [address] [place] [address] * (ABNORMAL) CBC (10/20/2024 10:31 AM EST) WBC 10.4 3.4 - 10.8 x10E3/uL [facility] RBC 5.63 4.14 - 5.80 x10E6/uL [facility] Hemoglobin 18.1(H) 13.0 - 17.7 g/dL [facility] Hematocrit 53.2(H) 37.5 - 51.0 % [facility] MCV 95 79 - 97 fL [facility] MCH 32.1 26.6 - 33.0 pg [facility] MCHC 34.0 31.5 - 35.7 g/dL [facility] RDW 13.8 11.6 - 15.4 % [facility] Platelets 127(L) 150 - 450 x10E3/uL [facility] Blood (Blood, Venous) 10/20/2024 10:31 AM EST 10/20/2024 Bayron Brandt DO LAB BLOOD ORDERABLES Final Resu lt [facility] [address] [place] [address] * (ABNORMAL) Hemoglobin A1c (10/20/2024 10:31 AM EST) Hemoglobin A1C 7.6(H) 4.8 - 5.6 % [facility] Comment: ? Prediabetes: 5.7 - 6.4 ? Diabetes: >6.4 ? Glycemic control for adults with diabetes: <7.0 Blood (Blood, Venous) 10/20/2024 10:31 AM EST 10/20/2024 Bayron Brandt DO LAB BLOOD ORDERABLES Final Resu [facility] [address] [place] [address] * (ABNORMAL) Renal Function Panel (10/20/2024 10:31 AM EST) Glucose 104(H) 70 - 99 mg/dL [facility] BUN 21 8 - 27 mg/dL [facility] Creatinine 1.47(H) 0.76 - 1.27 mg/dL [facility] eGFR CKD-EPI CR 2020 50(L) >59 mL/min/1.7 3 [facility] BUN/Creatinine Ratio 14 10 - 24 [facility] Sodium 141 134 - 144 mmol/L [facility] Potassium 4.1 3.5 - 5.2 mmol/L [facility] Chloride 101 96 - 106 mmol/L [facility] Bicarbonate (CO2) 23 20 - 29 mmol/L [facility] Calcium 9.4 8.6 - 10.2 mg/dL [facility] Albumin 4.2 3.8 - 4.8 g/dL [facility] Phosphorus 3.3 2.8 - 4.1 mg/dL [facility] Blood (Blood, Venous) 10/20/2024 10:31 AM EST 10/20/2024 us Bayron Brandt DO LAB BLOOD ORDERABLES Final Resu lt [facility] [address] [place] [address] from Last 3 Months Insurance Medicaid [place] [employer] Dual SNP ([id number]) Care Teams Master Baker Relationship Specialty Start Date End Date Shashi Ingram MD [address] [place] [address] PCP - General Family Medicine 02/17/21
--- OUTSIDE RECORDS SUMMARY | 2025-01-03 06:25 | XMS_ITS | Encounter Summary ---
Author Organization [facility] [place], Address [address] [place] [address] Phone Care Team Providers Care Heating Unit Mechanic Name Role Phone Shashi Ingram MD Primary Care Provider +1- [phone] Encounter Details Date Type Department Care Team (Late st Contact Info) Description 04/30/2023 Documentation Only [facility] [address] [place] [address] Bayron Brandt DO [address] [facility] [place] [place] [phone] Social History Tobacco Use Types Packs/Day Years [...] Support [facility] [address] [place] [phone] 02/17/2025 2:45 PM EDT Office Visit [facility] [address] [place] [phone] Bayron Brandt DO [address] [place] [address] [place] [address] documented as of this encounter Visit Diagnoses Not on filedocumented in this encounter Care Teams Heating Unit Mechanic Relationship Specialty Start Date End Date Shashi Ingram MD [address] [place] [address] PCP - General Family Medicine 02/17/21 documented as of this encounter
--- OUTSIDE RECORDS SUMMARY | 2025-01-03 06:25 | XMS_ITS ---
Author Organization [facility] Address [address] [place] [address] Care Team Providers Care Hosting Engineer Name Role Phone Bailey Ingram MD Primary Care Provider UnavailConcepcion Roman [phone] REASON FOR VISIT CHEMICAL LIBRARIAN [facility]WK Entered Encounters Encounter Location Date Provider Diagnosis [address] [address] 11/13/2024 Concepcion Koehler Plan Of Treatment Next Appt Details Provider Name:Concepcion coronado, 03/16/2025 03:00:00 PM, [address] [place] [address], [phone], Progress Notes * CRUZDemetri FREEMANDOB:1950 (74 yo M)Acc No.[id number]:11/13/2024 Patient:?Demetri CRUZ :1950???Age:74 Y???Sex:Male Address:[address] [facility], [place], [address] * true * Date:? Generated for Printi ng/Faciarrag/eTransmitting on:?01/03/2025 06:24 AM EDT
--- OUTSIDE RECORDS SUMMARY | 2025-01-03 06:25 | XMS_ITS | Encounter Summary ---
Author Organization [facility] Address [address] [place] [address] Phone Care Team Providers Care Pull Over Name Role Phone Shashi Ingram MD Primary Care Provider +1- [phone] Reason for Visit * Reason Comments Med Change Request Encounter Details Date Type Department Care Team (Late st Contact Info) Description 02/06/2023 Refill [facility] [address] [place] [address] Bayron Brandt DO [address] [place] [address] [place] [phone] Social History Tobacco Use Types Packs/Day Years [...] Support [facility] [address] [place] [phone] 02/17/2025 2:45 PM EDT Office Visit [facility] [address] [place] [address] Bayron Brandt DO [address] [place] [address] documented as of this encounter Visit Diagnoses Not on filedocumented in this encounter Care Teams Pull Over Relationship Specialty Start Date End Date Shashi Ingram MD [facility] [place], [place] PCP - General Family Medicine 02/17/21 documented as of this encounter
--- OUTSIDE RECORDS SUMMARY | 2025-01-03 06:25 | XMS_ITS | Encounter Summary ---
Author Organization [facility], Address [address] [place] [address] Phone Care Team Providers Care Regulatory Scientist Name Role Phone Shashi Ingram MD Primary Care Provider [phone] Encounter Details Date Type Department Care Team (Late st Contact Info) Description 07/09/2024 Documentation Only [facility] [address] [place] [address] Heather Singh [address] [place] [address] Social History Tobacco Use Types Packs/Day Years [...] Support [facility] [address] [place] [phone] 02/17/2025 2:45 PM EDT Office Visit [facility] [address] [place] [phone] Bayron Brandt [address] [place] [address] documented as of this encounter Visit Diagnoses Not on filedocumented in this encounter Care Teams Regulatory Scientist Relationship Specialty Start Date End Date Shashi Ingram MD [facility] [place], [place] PCP - General Family Medicine 02/17/21 documented as of this encounter
[2025-01-03] MEDS: iohexoL 350 MG/ML 100 ML INFUS..BTL 85 ML IV (06:41)
[2025-01-03] MEDS: ondansetron HCL 4 MG/2 ML VIAL IVPUSH (06:53)
[2025-01-03] MEDS: 0.9 % Sodium Chloride 1,000 ML 999 ML IV (06:54)
[2025-01-03 08:33] VITALS: BP 158/98; PULSE 80; RESP 20; O2SAT 97
[2025-01-03 08:41] LABS: Appearance Urine Clear; Color Urine Yellow; Glucose Urine UA 500 mg/dL (Negative); Leukocyte Esterase Urine Negative (Negative); Nitrite Urine Negative (Negative); UMIC TRIGGER UACC YES; Urine Blood Trace (Negative); Urine Ketones Negative (Negative); Urine Protein 100 (2+) mg/dL (Neg-Trace)
[2025-01-03 08:46] LABS: Bacteria Urine None Seen (None Seen); Hyaline Casts Urine 0-2 /LPF (0-2); RBC Urine 0-2 /HPF (0-2); Squamous Epithelial Cell Urine 0-2 /HPF (0-2); WBC Urine 0-5 /HPF (0-5)
== END 2025-01-03 10:08 | disposition home or self-care (01) ==
PROVIDERS: Emergency Provider Emergency Medicine; PCP Family Medicine
DX: R11.0 Nausea (principal); F41.9 Anxiety disorder, unspecified; B20 Human immunodeficiency virus [HIV] disease; E11.9 Type 2 diabetes mellitus without complications; Z03.818 Encounter for observation for suspected exposure to other biological agents ruled out; Z79.899 Other long term (current) drug therapy
CPT/HCPCS: 0241U; 36415; 74177; 80053; 81001; 83690; 84484; 85025; 93005; 96374; 99284; 99285; J2405; Q9967

== ENCOUNTER → 2025-01-03 05:33 | Outpatient (BNV) | payer OTHER, SELFPAY ==
[2022-03-27 08:59] VITALS: BP 136/70; BMI 27.3
== END ==
PROVIDERS: Emergency Provider Emergency Medicine; PCP Family Medicine; Visit Provider Internal Medicine
DX: I49.3 Ventricular premature depolarization (principal); I45.2 Bifascicular block
CPT/HCPCS: 93010

== ENCOUNTER → 2025-01-03 06:20 | Outpatient (BNV) | payer OTHER, SELFPAY ==
[2022-03-27 08:59] VITALS: BP 136/70; BMI 27.3
== END ==
PROVIDERS: Emergency Provider Emergency Medicine; PCP Family Medicine; Visit Provider Radiology Diagnostic Radiology
DX: K80.20 Calculus of gallbladder without cholecystitis without obstruction (principal)
CPT/HCPCS: 74177

== ENCOUNTER 2025-04-05 12:40 | Emergency (ER) | payer OTHER, SELFPAY ==
[2022-03-27 08:59] VITALS: BP 136/70; BMI 27.3
[2025-04-05 12:47] VITALS: BP 185/110; PULSE 95; RESP 16; TEMP 36.9; O2SAT 97; BMI 25.8
--- NOTE | 2025-04-05 12:56 | ECG_ITS ---
Test Reason : abdominal pain Blood Pressure : */* mmHG Vent. Rate : 89 BPM Atrial Rate : 89 BPM P-R Int : 136 ms QRS Dur : 94 ms QT Int : 370 ms P-R-T Axes : 41 -67 101 degrees QTcB Int : 450 ms Normal sinus rhythm with sinus arrhythmia Left axis deviation Incomplete right bundle branch block Minimal voltage criteria for LVH, may be normal variant ( R in aVL ) Septal infarct , age undetermined Abnormal ECG When compared with ECG of 03-Jan-2025 05:33, Premature ventricular complexes are no longer Present Nonspecific T wave abnormality no longer evident in Inferior leads Referred By: Generic ED Physician Electronically Signed By: DANIEL COOL MD
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
[2025-04-05 13:20] LABS: MANUAL DIFF FLAG NO
[2025-04-05 13:22] LABS: Hematocrit 50.1 % (42.0-52.0); Hemoglobin 17.6 g/dl (14.0-18.0); Imm Gran Abs Auto 0.11 X10*3/uL (0.00-0.03); Imm Gran Pct Auto 0.8 % (0.0-0.4); Lymphocytes Absolute Auto 1.3 X10*3/uL (1.2-4.9); Mean Corpuscular HGB Conc 35.1 g/dl (31.0-36.0); Mean Corpuscular Hemoglobin 31.2 pg (27.0-33.0); Mean Corpuscular Volume 88.7 fL (80.0-98.0); NRBC Abs Auto 0.000 X10*3/uL (0.0-0.012); NRBC Pct Auto 0.0 /100WBC (0.0-0.2); Platelet Count 180 X10*3/uL (160-400); Red Blood Count 5.65 X10*6/uL (4.60-5.80); White Blood Count 13.2 X10*3/uL (4.8-10.8)
[2025-04-05 13:39] LABS: Alanine Aminotransferase 21 U/L (0-40); Albumin Level 4.1 g/dL (3.5-5.0); Alkaline Phosphatase 58 U/L (39-117); Anion Gap 14 (12-20); Aspartate Amino Transferase 21 U/L (5-37); Blood Urea Nitrogen 32 mg/dL (9-16); Calcium 8.4 mg/dL (8.4-10.2); Carbon Dioxide 23 mmol/L (22-29); Chloride 107 mmol/L (96-108); Creatinine Clr Calc Pharmacy 45.6; Estimated Glomerular Filt Rate 48; Potassium 3.7 mmol/L (3.3-5.1); Sodium 140 mmol/L (135-145); Total Protein 6.9 g/dL (6.5-8.0)
[2025-04-05 13:43] LABS: Troponin-I High Sensitivity 53.7 ng/L (<3.5-35.0)
[2025-04-05] MEDS: diazePAM 10 MG/2 ML CARTRIDGE 2 MG IVPUSH (14:07)
[2025-04-05 14:19] VITALS: BP 164/102; PULSE 87; RESP 16; O2SAT 96
--- OUTSIDE RECORDS SUMMARY | 2025-04-05 14:52 | XMS_ITS | Patient Health Record ---
Author Organization [facility] Address [address] [place] [address] Care Team Providers Care Vehicle Check In Clerk Name Role Phone Bailey Ingram MD Primary Care Provider Concepcion Medina Unavailable [phone] Allergies No Known Allergies Results Component Value Reference Range Notes HEMOGLOBIN A1C (GLYCOHEMOGLO BIN) Reviewed date:01/01/2025 10:57:30 AM Interpretation: Performing Lab: Notes/Report: HEMOGLOBIN A1C % (HH) 6.3 Reason For Referral No Information Medications Medication SIG (Take, Route, Frequency, Duration) Notes Start Date End Date Status Physical Therapy . History of fall, unsteady gait. Balance and strength training, ROM and gait training .; Duration: 30 days 03/16/2025 Active Tresiba FlexTouch 200 UNIT/ML Subcutaneous; Duration: 45 Days Active Extra Depth Orthopedic Shoes (1 Pair) with Customized Heat Molded Multidensity Innersoles (3 Pair) as directed Dx: NIDDM/Polyneuropathy (E11.42), Hammertoe Foot Deformity (M20.41,M20.42), Preulcerative Skin Lesion(s) (L85.1 01/01/2025 Active Finasteride 5 MG Oral; Duration: 28 Days Active Amoxicillin 500 MG Oral; Duration: 7 Days Active Ibuprofen 800 MG Oral; Duration: 7 Days Active Metoprolol Succinate ER 200 MG Oral; Duration: 28 Days Not- Taking FreeStyle Bri 3 Sensor - ; Duration: 28 Days Active Lisinopril 20 MG Oral; Duration: 28 Days Active amLODIPine Besylate 10 MG Oral; Duration: 28 Days Acti ve Metoprolol Succinate ER 200 MG Oral; Duration: 28 Days Acti ve buPROPion HCl ER (XL) 150 MG Oral; Duration: 28 Days Acti ve Donepezil HCl 10 MG Oral; Duration: 28 Days Active Metoprolol Succinate ER 200 MG Oral; Duration: 28 Days Acti ve Immunizations Vaccine Route Administration Date Status Comme nts Influenza Unknown 05/10/2024 Administered Social History Tobacco Use: Social History Observation [...] Problem Status W/U Status Risk Notes Problem Other hammer toe(s) (acquired), right foot (M20.41) Active confirmed Problem Acquired hammer toe of left foot (4439797730486292 ) Other hammer toe(s) (acquired), left foot (M20.42) Active confirmed Problem Plantar wart (22153380) Plantar wart (B07.0) Active confirmed Problem Polyneuropathy due to type 2 diabetes mellitus (130041126) Type 2 diabetes mellitus with diabetic polyneuropathy (E11.42) Active confirmed Problem Difficulty balancing when standing (916829685) Unsteady gait (R26.81) Active confirmed Vital Signs Blood pressure diastolic 82 mm Hg 03/16/2025 Height 5ft9in in 03/16/2025 Blood pressure systolic 128 mm Hg 03/16/2025 Weight 175 lbs 03/16/2025 BMI 25.84 kg/m2 03/16/2025 Encounters Encounter Location Date Provider Diagnosis [facility] [address] [place] [address] 01/01/2025 Concepcion Koehler Type 2 diabetes mellitus with diabetic polyneuropathy E11.42 ; Other hammer toe(s) (acquired), left foot M20.42 ; Plantar wart B07.0 ; Left foot pain M79.672 and Other hammer toe(s) (acquired), right foot M20.[address] [address] 03/16/2025 Concepcion Koehler Other hammer toe(s) (acquired), left foot M20.42 ; Unsteady gait R26.81 ; Type 2 diabetes mellitus with diabetic polyneuropathy E11.42 ; Plantar wart B07.0 ; Left foot pain M79.672 ; Other hammer toe(s) (acquired), right foot M20.41 and History of fall Z91.[address] [address] 11/13/2024 Concepcion Koehler Assessments Encounter Date Diagnosis (ICD Code) Assessment Notes Treatment Notes Treatment Clinical Notes Section Notes 01/01/2025 Other hammer toe(s) (acquired), left foot (ICD-10 - M20.42) 01/01/2025 Type 2 diabetes mellitus with diabetic polyneuropathy (ICD-10 - E11.42) 03/16/2025 Other hammer toe(s) (acquired), left foot (ICD-10 - M20.42) 03/16/2025 Unsteady gait (ICD-10 - R26.81) 03/16/2025 Type 2 diabetes mellitus with diabetic polyneuropathy (ICD-10 - E11.42) 01/01/2025 Plantar wart (ICD-10 - B07.0) 01/01/2025 Left foot pain (ICD-10 - M79.672) 03/16/2025 Plantar wart (ICD-10 - B07.0) 03/16/2025 Left foot pain (ICD-10 - M79.672) 01/01/2025 Other hammer toe(s) (acquired), right foot (ICD-10 - M20.41) Patient Educated with: DIABETIC FOOT CARE INSTRUCTIONS. pdf (DIABETIC FOOT CARE INSTRUCTIONS. pdf) 03/16/2025 Other hammer toe(s) (acquired), right foot (ICD-10 - M20.41) Patient Educated with: DIABETIC FOOT CARE INSTRUCTIONS. pdf (DIABETIC FOOT CARE INSTRUCTIONS. pdf) 03/16/2025 History of fall (ICD-10 - Z91.81) Plan Of Treatment Next Appt Details Provider Name:Concepcion coronado, 06/01/2025 04:00:00 PM, [address] [place], [address], Insurance Providers Payer Name Payer Address Payer Phone Subscriber Number Group Number Insured Name Patient Relationship to Insured Coverage Start Date Coverage End Date [facility] [employer] Claims [address] [place] [id number] Demetri Cruz Self - patient is the insured Medical (General) History Medical History History ICD Code Angina Back,Hip,and Knee pain CAD (Cholesterol) Dementia Depression Diabetic Heart disease HBP Kidney disease Liver disease Numbness HIV PVD Surgical History Surgery Date(Month/Year) Heart 2011 Hospitalization History Reason Date(Month/Year) Fell 12/01
--- OUTSIDE RECORDS SUMMARY | 2025-04-05 14:52 | XMS_ITS | Data Portability ---
Author Organization TERRANCE OLVERA MD [facility], Main Office Address [address] [place] [address] Assessment No assessment recorded. Plan of Treatment Reminders Order Date Submit Date Provider Last Modified By Organization Details Last Modified Time Details Appointments CABENUV[facility] INJECTIO N 2024 03:00P M Otilia Granado MD Not available Not available Not available B20 FOLLOW UP 2024 03:00P Eliza Granado MD Not available Not available Not available [facility]JECT[facility] N 2024 03:00P Eliza Granado MD Not available Not available Not available [facility] INJECT[facility] N 2025 03:00P M Otilia Granado MD Not available Not available Not available Lab microorg anism identifi cation, unspecif ied specimen 2024 025 [email or web address] [facility], [address] [facility], [place], [address], 02/19/2025 11:17:03 Referral None recorded . Procedures None recorded . Surgeries None recorded . Imaging None recorded . Medication Orders doxycycl ine monohydr ate 100 mg tablet 2024 025 [facility]- , [address], [place], [id number], 02/18/2025 15:18:34 mupiroci n 2 % topical ointment 2024 025 [facility]- , [address], [place], [id number], 02/18/2025 15:45:31 Hibiclen s 4 % topical liquid 2024 025 GUANACO [facility]- , [address], [place], [id number], 02/18/2025 15:45:31 cabotegr avir ER 600 mg/3 mL-rilpi virine ER 900 mg/3mL IM suspensi on,ER 2024 025 Not available 02/18/2025 15:41:08 Cabenuva 600 mg/3 mL-900 mg/3 mL IM suspensi on, extended release [address] [facility] , [address], [place], [id number], 12/18/2024 23:02:01 cabotegr avir ER 600 mg/3 mL-rilpi virine ER 900 mg/3mL IM suspensi on,ER 2024 025 Not available 12/21/2024 11:57:53 cabotegr avir ER 600 mg/3 mL-rilpi virine ER 900 mg/3mL IM suspensi on,ER 2024 [facility] [address], [place], [id number], 10/22/2024 21:02:13 cabotegr avir ER 600 mg/3 mL-rilpi virine ER 900 mg/3mL IM suspensi on,ER 2023 024 [email or web address] [id number], [address] [place], [address], 08/20/2024 15:53:21 cabotegr avir ER 600 mg/3 mL-rilpi virine ER 900 mg/3mL IM suspensi on,ER 2023 024 [email or web address] [id number], [address] [place], [address], 06/19/2024 15:42:01 Patient TargetsNo targets recorded. Patient InstructionsNo instructions recorded. Reason for Referral None Reported. Results Created Date Observation Date Name Description Value Unit Range Abnormal Flag Note LastModifiedBy Organization Detail LastModifiedTime 06/12/2006/16/2024 RPR, RFX QN RPR/C ONFIR M TP RPR Non Reacti ve non reacti ve Not Available [facility] ([facility]) [address] [facility], [place], [address], 06/16/2024 06:05:23 06/12/2006/16/2024 HBSAG SCREE N HBsAg screen Negati ve negati ve Not Available [facility] ([facility]) [address] [place], [address], 06/16/2024 06:05:24 06/12/2006/13/2024 CBC/D /PLT W/ REFLE X MARIELA TIN WBC 9.5 x10e3 /uL 3.4-10 .8 normal Not Available [facility] ([facility]) [address] [place], [address], 06/26/2024 10:06:22 06/12/2006/13/2024 CBC/D /PLT W/ REFLE X MARIELA TIN RBC 5.65 x10e6 /uL 4.14-5 .80 normal Not Available [facility] ([facility]) [address] [place], [address], 06/26/2024 10:06:22 06/12/2006/13/2024 CBC/D /PLT W/ REFLE X MARIELA TIN hemoglobin 17.5 g/dL 13.0-1 7.7 normal Not Available [facility] ([facility]) [address] [place], [address], 06/26/2024 10:06:22 06/12/20 24 06/13/2024 CBC/D /PLT W/ REFLE X MARIELA TIN hematocrit 53.8 % 37.5-5 1.0 above high normal Not Available [facility] ([facility]) [address] [facility], [place], [address], 06/26/2024 10:06:22 06/12/2006/13/2024 CBC/D /PLT W/ REFLE X MARIELA TIN MCV 95 fL 79-97 normal Not Available [facility] ([facility]) [address] [facility], [place], [address], 06/26/2024 10:06:22 06/12/2006/13/2024 CBC/D /PLT W/ REFLE X MARIELA TIN MCH 31.0 pg 26.6-3 3.0 normal Not Available [facility] ([facility]) [address] [place], [address], 06/26/2024 10:06:22 06/12/2006/13/2024 CBC/D /PLT W/ REFLE X MARIELA TIN MCHC 32.5 g/dL 31.5-3 5.7 normal Not Available [facility] ([facility]) [address] [facility], [place], [address], 06/26/2024 10:06:22 06/12/2006/13/2024 CBC/D /PLT W/ REFLE X MARIELA TIN RDW 13.0 % 11.6-1 5.4 Not Available [facility] ([facility]) [address] [place], [address], 06/26/2024 10:06:22 06/12/2006/13/2024 CBC/D /PLT W/ REFLE X MARIELA TIN platelets 197 x10e3 /uL 150-45 0 normal Not Available [facility] ([facility]) [address] [place], [address], 06/26/2024 10:06:22 06/12/2006/13/2024 CBC/D /PLT W/ REFLE X MARIELA TIN neutrophils 77 % not estab. normal Not Available [facility] ([facility]) [address] [facility], [place], [address], 06/26/2024 10:06:22 06/12/20 24 06/13/2024 CBC/D /PLT W/ REFLE X MARIELA TIN lymphs 15 % not estab. normal Not Available [facility] ([facility]) [address] [facility], [place], [address], 06/26/2024 10:06:22 06/12/2006/13/2024 CBC/D /PLT W/ REFLE X MARIELA TIN monocytes 6 % not estab. normal Not Available [facility] ([facility]) [address] [facility], [place], [address], 06/26/2024 10:06:22 06/12/2006/13/2024 CBC/D /PLT W/ REFLE X MARIELA TIN eos 1 % not estab. normal Not Available [facility] ([facility]) [address] [facility], [place], [address], 06/26/2024 10:06:22 06/12/2006/13/2024 CBC/D /PLT W/ REFLE X MARIELA TIN basos 1 % not estab. normal Not Available [facility] ([facility]) [address] [facility], [place], [address], 06/26/2024 10:06:22 06/12/2006/13/2024 CBC/D /PLT W/ REFLE X MARIELA TIN immature cells HOMEOPATHIC DOCTOR Not Available [facility] ([facility]) [address] [facility], [place], [address], 06/26/2024 10:06:22 06/12/20 24 06/13/2024 CBC/D /PLT W/ REFLE X MARIELA TIN neutrophils (absolute) 7.4 x10e3 /uL 1.4-7. 0 above high normal Not Available [facility] ([facility]) [address] [facility], [place], [address], 06/26/2024 10:06:22 06/12/20 24 06/13/2024 CBC/D /PLT W/ REFLE X MARIELA TIN lymphs (absolute) 1.4 x10e3 /uL 0.7-3. 1 normal Not Available [facility] ([facility]) [address] [facility], [place], [address], 06/26/2024 10:06:22 06/12/2006/13/2024 CBC/D /PLT W/ REFLE X MARIELA TIN monocytes(ab solute) 0.5 x10e3 /uL 0.1-0. 9 normal Not Available [facility] ([facility]) [address] [facility], [place], [address], 06/26/2024 10:06:22 06/12/20 24 06/13/2024 CBC/D /PLT W/ REFLE X MARIELA TIN eos (absolute) 0.1 x10e3 /uL 0.0-0. 4 normal Not Available [facility] ([facility]) [address] [facility], [place], [address], 06/26/2024 10:06:22 06/12/20 24 06/13/2024 CBC/D /PLT W/ REFLE X MARIELA TIN baso (absolute) 0.1 x10e3 /uL 0.0-0. 2 normal Not Available [facility] ([facility]) [address] [facility], [place], [address], 06/26/2024 10:06:22 06/12/2006/13/2024 CBC/D /PLT W/ REFLE X MARIELA TIN immature granulocytes 0 % not estab. Not Available [facility] ([facility]) [address] [facility], [place], [address], 06/26/2024 10:06:22 06/12/2006/13/2024 CBC/D /PLT W/ REFLE X MARIELA TIN immature grans (abs) 0.0 x10e3 /uL 0.0-0. 1 Not Available [facility] ([facility]) [address] [facility], [place], [address], 06/26/2024 10:06:22 06/12/2006/13/2024 CBC/D /PLT W/ REFLE X MARIELA TIN NRBC HOMEOPATHIC DOCTOR Not Available [facility] ([facility]) [address] [facility], [place], [address], 06/26/2024 10:06:22 06/12/2006/13/2024 CBC/D /PLT W/ REFLE X MARIELA TIN hematology comments: HOMEOPATHIC DOCTOR Not Available [facility] ([facility]) [address] [facility], [place], [address], 06/26/2024 10:06:22 06/12/2006/13/2024 T-ALTAF L ACTIV ATION , CD8 SUBSE TS absolute cd 3 1270 /uL 622-24 02 Not Available [facility] ([facility]) [address] [facility], [place], [address], 06/26/2024 10:06:23 06/12/2006/13/2024 T-ALTAF L ACTIV ATION , CD8 SUBSE TS % cd 3 pos. lymph. 90.7 % 57.5-8 6.2 above high normal Not Available [facility] ([facility]) [address] [facility], [place], [address], 06/26/2024 10:06:23 06/12/2006/13/2024 T-ALTAF L ACTIV ATION , CD8 SUBSE TS abs.cd8+hla- dr+lymph 181 /uL 0-117 above high normal Not Available [facility] ([facility]) [address] [facility], [place], [address], 06/26/2024 10:06:23 06/12/20 24 06/13/2024 T-ALTAF L ACTIV ATION , CD8 SUBSE TS % cd8+hla-dr+ lymphs 12.9 % 0.0-4. 9 above high normal Not Available [facility] ([facility]) [address] [facility], [place], [address], 06/26/2024 10:06:23 06/12/20 24 06/13/2024 T-ALTAF L ACTIV ATION , CD8 SUBSE TS % cd3+cd25+ lymphs 14.3 % 4.9-25 .9 Not Available [facility] ([facility]) [address] [place], [address], 06/26/2024 10:06:23 06/12/20 24 06/13/2024 T-ALTAF L ACTIV ATION , CD8 SUBSE TS abs.cd3+cd25 + lymphs 200 /uL 79-535 Not Available [facility] ([facility]) [address] [facility], [place], [address], 06/26/2024 10:06:23 06/12/20 24 06/13/2024 T-ALTAF L ACTIV ATION , CD8 SUBSE TS % cd8+cd38+ lymphs 14.4 % 0.0-17 .7 Not Available [facility] ([facility]) [address] [facility], [place], [address], 06/26/2024 10:06:23 06/12/2006/13/2024 T-ALTAF L ACTIV ATION , CD8 SUBSE TS abs.cd8+cd38 + lymphs 202 /uL 0-381 Not Available [facility] ([facility]) [address] [facility], [place], [address], 06/26/2024 10:06:23 06/12/20 24 06/26/2024 T-ALTAF L ACTIV ATION , CD8 SUBSE TS absolute cd 4 helper COMMEN T /uL Unabl e to calcu late resul t since non-n umeri c resul t obtai sara for compo nent test. Not Available [facility] ([facility]) [address] [facility], [place], [address], 06/26/2024 10:06:23 06/12/20 24 06/26/2024 T-ALTAF L ACTIV ATION , CD8 SUBSE TS % cd 4 pos. lymph. COMMEN T % Test not perfo rmed due to the age of this speci men. Not Available [facility] ([facility]) [address] [facility], [place], [address], 06/26/2024 10:06:23 06/12/20 24 06/26/2024 T-ALTAF L ACTIV ATION , CD8 SUBSE TS absolute cd 8 (supp) COMMEN T /uL Unabl e to calcu late resul t since non-n umeri c resul t obtai sara for compo nent test. Not Available [facility] ([facility]) [address] [facility], [place], [address], 06/26/2024 10:06:23 06/12/20 24 06/26/2024 T-ALTAF L ACTIV ATION , CD8 SUBSE TS % cd 8 pos. lymph. COMMEN T % Test not perfo rmed due to the age of this speci men. Not Available [facility] ([facility]) [address] [facility], [place], [address], 06/26/2024 10:06:23 06/12/20 24 06/26/2024 T-ALTAF L ACTIV ATION , CD8 SUBSE TS cd4/cd8 ratio COMMEN T Unabl e to calcu late resul t since non-n umeri c resul t obtai sara for compo nent test. Not Available [facility] ([facility]) [address] [facility], [place], [address], 06/26/2024 10:06:23 06/12/20 24 06/14/2024 RNA, PCR (NONG RAPH) RFX/G JACI HIV-1 RNA by PCR <20 copie s/mL HIV-1 RNA detec pat The repor table range for this assay is 20 to 10,00 0,000 copie s HIV-1 RNA/m L. Not Available [facility] ([facility]) [address] [facility], [place], [address], 06/26/2024 10:06:23 06/12/20 24 06/14/2024 RNA, PCR (NONG RAPH) RFX/G JACI log10 HIV-1 RNA COMMEN T log10 copy/ mL Unabl e to calcu late resul t since non-n umeri c resul t obtai sara for compo nent test. Not Available [facility] ([facility]) [address] [facility], [place], [address], 06/26/2024 10:06:23 06/12/20 24 06/14/2024 RNA, PCR (NONG RAPH) RFX/G JACI genotype assay COMMEN T Not indic ated Not Available [facility] ([facility]) [address] [facility], [place], [address], 06/26/2024 10:06:23 06/12/2006/23/2024 GLOM FILT RATE, ESTIM ATED creatinine COMMEN T mg/dL [facility] was unabl e to colle ct suffi cient speci men to perfo rm the follo wing test( s), and is provi ding the patie nt with re-co llect ion instr uctio ns. Not Available [facility] ([facility]) [address] [facility], [place], [address], 06/26/2024 10:06:24 06/12/2006/23/2024 GLOM FILT RATE, ESTIM ATED eGFR HOMEOPATHIC DOCTOR Not Available [facility] ([facility]) [address] [facility], [place], [address], 06/26/2024 10:06:24 06/12/20 24 06/19/2024 CHLAM YDIA/ GC AMPLI FICAT ION chlamydia trachomatis, SANGITA COMMEN T [facility] was unabl e to colle ct suffi cient speci men to perfo rm the follo wing test( s), and is provi ding the patie nt with re-co llect ion instr uctio ns. Not Available [facility] ([facility]) [address] [facility], [place], [address], 06/26/2024 10:06:24 06/12/2006/19/2024 CHLAM YDIA/ GC AMPLI FICAT ION neisseria gonorrhoeae, SANGITA TNP Test not perfo rmed Not Available [facility] ([facility]) [address] [facility], [place], [address], 06/26/2024 10:06:24 06/12/2006/23/2024 AST (SGOT ) AST (SGOT) COMMEN T IU/L [facility] was unabl e to colle ct suffi cient speci men to perfo rm the follo wing test( s), and is provi ding the patie nt with re-co llect ion instr uctio ns. Not Available [facility] ([facility]) [address] [facility], [place], [address], 06/26/2024 10:06:24 06/12/2006/23/2024 ALT (SGPT ) ALT (SGPT) COMMEN T IU/L [facility] was unabl e to colle ct suffi cient speci men to perfo rm the follo wing test( s), and is provi ding the patie nt with re-co llect ion instr uctio ns. Not Available [facility] ([facility]) [address] [facility], [place], [address], 06/26/2024 10:06:25 06/12/2006/23/2024 SPECI MEN STATU S REPOR T specimen status report COMMEN T [facility] was unabl e to colle ct suffi cient speci men to perfo rm the follo wing test( s), and is provi ding the patie nt with re-co llect ion instr uctio ns. TEST: 11780 0 Creat inine Panel : [id number] 3 AST (SGOT ) 80305 5 ALT (SGPT ) Not Available [facility] ([facility]) [address] [place], [address], 06/26/2024 10:06:25 06/12/20 24 06/17/[address] PROBL EM request problem COMMEN T Test not perfo rmed. No speci men recei carmella. TEST: 44197 2 RPR Panel : [id number] [id number] 0 HBsAg Scree n Not Available [facility] ([facility]) [address] [place], [address], 06/26/2024 10:06:25 06/12/20 24 06/19/[address] PROBL EM request problem COMMEN T [facility] was unabl e to colle ct suffi cient speci men to perfo rm the follo wing test( s), and is provi ding the patie nt with re-co llect ion instr uctio ns. TEST: 24426 8 Chlam ydia/ GC Ampli ficat ion Not Available [facility] ([facility]) [address] [place], [address], 06/26/2024 10:06:26 06/12/20 24 06/26/[address] PROBL EM request problem COMMEN T Test not perfo rmed due to the age of this speci men. TEST: 34406 6 % CD 4 Pos. Lymph . Panel : [id number] 0 89651 8 % CD 8 Pos. Lymph . Panel : 25269 0 Not Available [facility] ([facility]) [address] [place], [address], 06/26/2024 10:06:26 10/20/19 25 10/21/2024 CBC/D /PLT W/ REFLE X MARIELA TIN WBC 10.2 x10e3 /uL 3.4-10 .8 normal Not Available [facility] ([facility]) [address] [facility] [place], [address], 11/05/2024 18:05:58 10/20/19 25 10/21/2024 CBC/D /PLT W/ REFLE X MARIELA TIN RBC 5.67 x10e6 /uL 4.14-5 .80 normal Not Available [facility] ([facility]) [address] [facility], [place], [address], 11/05/2024 18:05:58 10/20/19 25 10/21/2024 CBC/D /PLT W/ REFLE X MARIELA TIN hemoglobin 18.1 g/dL 13.0-1 7.7 above high normal Not Available [facility] ([facility]) [address] [facility], [place], [address], 11/05/2024 18:05:58 10/20/19 25 10/21/2024 CBC/D /PLT W/ REFLE X MARIELA TIN hematocrit 52.9 % 37.5-5 1.0 above high normal Not Available [facility] ([facility]) [address] [place], [address], 11/05/2024 18:05:58 10/20/19 25 10/21/2024 CBC/D /PLT W/ REFLE X MARIELA TIN MCV 93 fL 79-97 normal Not Available [facility] ([facility]) [address] [place], [address], 11/05/2024 18:05:58 10/20/19 25 10/21/2024 CBC/D /PLT W/ REFLE X MARIELA TIN MCH 31.9 pg 26.6-3 3.0 normal Not Available [facility] ([facility]) [address] [place], [address], 11/05/2024 18:05:58 10/20/19 25 10/21/2024 CBC/D /PLT W/ REFLE X MARIELA TIN MCHC 34.2 g/dL 31.5-3 5.7 normal Not Available [facility] ([facility]) [address] [facility], [place], [address], 11/05/2024 18:05:58 10/20/19 25 10/21/2024 CBC/D /PLT W/ REFLE X MARIELA TIN RDW 13.9 % 11.6-1 5.4 Not Available [facility] ([facility]) [address] [facility], [place], [address], 11/05/2024 18:05:58 10/20/19 25 10/21/2024 CBC/D /PLT W/ REFLE X MARIELA TIN platelets 138 x10e3 /uL 150-45 0 below low normal Not Available [facility] ([facility]) [address] [facility], [place], [address], 11/05/2024 18:05:58 10/20/19 25 10/21/2024 CBC/D /PLT W/ REFLE X MARIELA TIN neutrophils 77 % not estab. normal Not Available [facility] ([facility]) [address] [facility], [place], [address], 11/05/2024 18:05:58 10/20/19 25 10/21/2024 CBC/D /PLT W/ REFLE X MARIELA TIN lymphs 15 % not estab. normal Not Available [facility] ([facility]) [address] [place], [address], 11/05/2024 18:05:58 10/20/19 25 10/21/2024 CBC/D /PLT W/ REFLE X MARIELA TIN monocytes 5 % not estab. normal Not Available [facility] ([facility]) [address] [place], [address], 11/05/2024 18:05:58 10/20/19 25 10/21/2024 CBC/D /PLT W/ REFLE X MARIELA TIN eos 1 % not estab. normal Not Available [facility] ([facility]) [address] [place], [address], 11/05/2024 18:05:58 10/20/19 25 10/21/2024 CBC/D /PLT W/ REFLE X MARIELA TIN basos 1 % not estab. normal Not Available [facility] ([facility]) [address] [facility], [place], [address], 11/05/2024 18:05:58 10/20/19 25 10/21/2024 CBC/D /PLT W/ REFLE X MARIELA TIN immature cells HOMEOPATHIC DOCTOR Not Available [facility] ([facility]) [address] [place], [address], 11/05/2024 18:05:58 10/20/19 25 10/21/2024 CBC/D /PLT W/ REFLE X MARIELA TIN neutrophils (absolute) 7.9 x10e3 /uL 1.4-7. 0 above high normal Not Available [facility] ([facility]) [address] [place], [address], 11/05/2024 18:05:58 10/20/19 25 10/21/2024 CBC/D /PLT W/ REFLE X MARIELA TIN lymphs (absolute) 1.6 x10e3 /uL 0.7-3. 1 normal Not Available [facility] ([facility]) [address] [place], [address], 11/05/2024 18:05:58 10/20/19 25 10/21/2024 CBC/D /PLT W/ REFLE X MARIELA TIN monocytes(ab solute) 0.5 x10e3 /uL 0.1-0. 9 normal Not Available [facility] ([facility]) [address] [place], [address], 11/05/2024 18:05:58 10/20/19 25 10/21/2024 CBC/D /PLT W/ REFLE X MARIELA TIN eos (absolute) 0.1 x10e3 /uL 0.0-0. 4 normal Not Available [facility] ([facility]) [address] [facility], [place], [address], 11/05/2024 18:05:58 10/20/19 25 10/21/2024 CBC/D /PLT W/ REFLE X MARIELA TIN baso (absolute) 0.1 x10e3 /uL 0.0-0. 2 normal Not Available [facility] ([facility]) [address] [facility], [place], [address], 11/05/2024 18:05:58 10/20/19 25 10/21/2024 CBC/D /PLT W/ REFLE X MARIELA TIN immature granulocytes 1 % not estab. Not Available [facility] ([facility]) [address] [facility], [place], [address], 11/05/2024 18:05:58 10/20/19 25 10/21/2024 CBC/D /PLT W/ REFLE X MARIELA TIN immature grans (abs) 0.1 x10e3 /uL 0.0-0. 1 Not Available [facility] ([facility]) [address] [facility], [place], [address], 11/05/2024 18:05:58 10/20/19 25 10/21/2024 CBC/D /PLT W/ REFLE X MARIELA TIN NRBC HOMEOPATHIC DOCTOR Not Available [facility] ([facility]) [address] [facility], [place], [address], 11/05/2024 18:05:58 10/20/19 25 10/21/2024 CBC/D /PLT W/ REFLE X MARIELA TIN hematology comments: HOMEOPATHIC DOCTOR Not Available [facility] ([facility]) [address] [place], [address], 11/05/2024 18:05:58 10/20/19 25 10/20/2024 T CELL PANEL (GAMM A, BETA) methodology: Rufina Payne nt cellu lar DNA is subje cted to polym erase chain react ion using 2 optim ized prime r sets that targe t multi ple V and J exon regio ns withi n the T cell customer service receptionist tor gamma chain gene on chrom osome 7. Rearr angem ents are detec pat by ident ifica tion of speci fic clona l ampli con produ cts follo wing elect ropho resis . This PCR assay is capab le of detec ting a clona l popul ation at a sensi tivit y of 5 clona l cells per 100 carlos enrique l cells . Not Available [facility] ([facility]) [address] [facility], [place], [address], 11/05/2024 18:05:59 10/20/19 25 10/20/2024 T CELL PANEL (GAMM A, BETA) references: Commen t 1. Geri Kay, et al. Power ful strat egy for polym erase chain react ion-b ased clona lity asses sment in T-altaf l malig gerber es. Repor t of the BIOME D-2 Kita rted Actio n BHM4 [id number]. Leuke indira 2007: 21:21 5-221 . 2. Mer cruz AW, et al. [facility] lonal ity/B IOMED -2 guide lines for inter preta tion and repor ting of Ig/TC R clona lity testi ng in suspe cted lymph oprol ifera tions . Leuke indira 2012: 26:21 59-21 71. This test was devel oped and its perfo rmanc e ok cteri stics deter mined by [employer] rp. It has not been clear ed or appro carmella by the Food and Drug Admin istra tion. Not Available [facility] ([facility]) [address] [facility], [place], [address], 11/05/2024 18:05:59 10/20/19 25 10/20/2024 T CELL PANEL (GAMM A, BETA) methodology: Commen t Genom ic DNA was isola pat from the provi ded patie nt speci men. Three multi plex maste r mixes (Invi voscr vilma Techn ologi es) targe t multi ple varia ble (V), diver sity (D) and joini ng (J) regio ns withi n the T cell customer service receptionist tor beta chain gene on chrom osome 7. Clona l popul ation s are detec pat by ident ifica tion of speci fic clona l ampli ficat ion produ cts using capil mary ellen elect ropho resis . Clona lity is indic ated if any one of the maste r mixes gener ates clona l band( s). This PCR assay is able to detec t a clona l DNA popul ation at the sensi tivit y of 5% in a backg round of polyc lonal DNA. Not Available [facility] ([facility]) [address] [facility], [place], [address], 11/05/2024 18:05:59 10/20/19 25 10/20/2024 T CELL PANEL (GAMM A, BETA) references: Commen t 1. Geri mulligan M, et al. Power ful strat egy for polym erase chain react ion-b ased clona lity asses sment in T-altaf l diomedes mayes es. Repor t of the BIOME D-2 Kita rted Actio n [id number]. Leuke indira 2007: 21:21 5-221 . 2. Mer cruz AW, et al. [facility] lonal ity/B IOMED -2 guide lines for inter preta tion and repor ting of Ig/TC R clona lity testi ng in suspe cted lymph oprol ifera tions . Leuke indira 2012: 26:21 59-21 71. This test was devel oped and its perfo rmanc e ok cteri stics deter mined by [employer]p. It has not been clear ed or appro carmella by the Food and Drug Admin istra tion. Not Available [facility] ([facility]) [address], [place], [address], 11/05/2024 18:05:59 10/20/19 25 10/26/2024 T CELL PANEL (GAMM A, BETA) T-cell PCR interpretati on Commen t A clona l popul ation emerg ing from a polyc lonal backg round was detec pat upon nicki sis of the T cell customer service receptionist tor gamma gene. This findi ng could refle ct a react fareed proce ss or could indic ate the emerg ence of a malig nant clone . Nicki sis of a follo w-up speci men may be usefu l for monit oring this emerg ing clona l popul ation . Inter preta tion of this resul t shoul d be made in the meredith xt of other clini lenin, morph ologi c, and immun ophen otypi c findi ngs. This PCR assay detec ts appro ximat roger 89% of T-altaf l clona l popul ation s but as with all ampli ficat ion based assay s, may not detec t all T-altaf l customer service receptionist tor gene rearr angem ents. If signi fican t suspi cion of clona lity remai ns, T-altaf l customer service receptionist tor beta (TCRB , test code 72713 5) test is recom anabelle d. The combi sara T-altaf l clona lity detec tion rate of TCRG and TCRB is 94-99 %. The T-altaf l customer service receptionist tor gene rearr angem ent panel (incl uding both TCRG and TCRB, test code 33552 0) is avail able for paral lel testi ng. Not Available [facility] ([facility]) [address] [place], [address], 11/05/2024 18:05:59 10/20/19 25 10/26/2024 T CELL PANEL (GAMM A, BETA) T clonal size Commen t: TCR 1: EMERG ING 83BP TCR 2: EMERG ING 262BP Not Available [facility] ([facility]) [address] [place], [address], 11/05/2024 18:05:59 10/20/19 25 10/26/2024 T CELL PANEL (GAMM A, BETA) director review: Rufina Butt PhD, [facility] Dire tor, Mole[facility] Oncol [facility] [place] [address] [phone] Not Available [facility] ([facility]) [address] [facility], [place], [address], 11/05/2024 18:05:59 10/20/1911/05/2024 T CELL PANEL (GAMM A, BETA) tcrb gene clonality results: Rufina t POSIT FAREED: A clona l T-altaf l customer service receptionist tor beta (TCRB ) popul ation was detec pat Inter preta tion of this resul t kathrine d be made in the meredith xt of other clini lenin, morph ologi c, and immun ophen otypi c findi ngs. The prese nce of a monoc lonal gene rearr angem ent usual ly refle cts the prese nce of a T-lym phocy tic neopl asm. Occas ional ly, B-altaf l neopl asms may demon strat e line age infid elity , i.e. rearr anged T-altaf l customer service receptionist tor genes . Other possi ble reaso ns for detec ting a clona l T-altaf l popul ation inclu de trans ient clona l proli ferat ions due to certa in viral infec tions or drug- assoc iated cutan eous erupt ions assoc iated with derma l lymph oid proli ferat ion proce sses. Clona l T-altaf l customer service receptionist tor gene rearr angem ents have also been descr ibed in other nonma ligna nt disor ders inclu ding lymph omato id papul osis and large granu lar lymph ocyto sis. Not Available [facility] ([facility]) [address] [facility] [place], [place], [address], 11/05/2024 18:05:59 10/20/19 25 11/05/2024 T CELL PANEL (GAMM A, BETA) clonal size: Rufina t: B: 266BP Not Available [facility] ([facility]) [address] [facility] [place], [place], [address], 11/05/2024 18:05:59 10/20/1911/05/2024 T CELL PANEL (GAMM A, BETA) director review: Rufina Butt, PhD, [facility] Dire tor, [facility] [place] [address] [phone] Not Available [facility] ([facility]) [address] [facility] [place], [place], [address], 11/05/2024 18:05:59 10/20/19 25 10/21/2024 GLOM FILT RATE, ESTIM ATED creatinine 1.42 mg/dL 0.76-1 .27 above high normal Not Available [facility] ([facility]) [address] [place], [address], 11/05/2024 18:05:59 10/20/19 25 10/21/2024 GLOM FILT RATE, ESTIM ATED eGFR 52 mL/mi n/1.7 3 >59 below low normal Not Available [facility] ([facility]) [address] [facility], [place], [address], 11/05/2024 18:05:59 10/20/19 25 10/23/2024 CHLAM YDIA/ GC AMPLI FICAT ION chlamydia trachomatis, SANGITA RUFINA [facility] was unabl e to colle ct suffi cient speci men to perfo rm the follo wing test( s), and is provi ding the patie nt with re-co llect ion instr uctio ns. Not Available [facility] ([facility]) [address] [facility] [place], [place], [address], 11/05/2024 18:06:00 10/20/19 25 10/23/2024 CHLAM YDIA/ GC AMPLI FICAT ION neisseria gonorrhoeae, SANGITA TNP Test not perfo rmed Not Available [facility] ([facility]) [address] [facility] [place], [place], [address], 11/05/2024 18:06:00 10/20/19 25 10/22/2024 RNA, REAL TIME PCR (NON- GRAPH ) HIV-1 RNA by PCR <20 copie s/mL HIV-1 RNA not detec pat The repor table range for this assay is 20 to 10,00 0,000 copie s HIV-1 RNA/m L. Not Available [facility] ([facility]) [address] [facility] [place], [place], [address], 11/05/2024 18:06:00 10/20/1910/22/2024 RNA, REAL TIME PCR (NON- GRAPH ) log10 HIV-1 RNA COMMEN T log10 copy/ mL Unabl e to calcu late resul t since non-n umeri c resul t obtai sara for compo nent test. Not Available [facility] ([facility]) [address] [facility] [place], [place], [address], 11/05/2024 18:06:00 10/20/19 25 10/22/2024 RPR, RFX QN RPR/C ONFIR M TP RPR Non Reacti ve non reacti ve Not Available [facility] ([facility]) [address] [facility], [place], [address], 11/05/2024 18:06:01 10/20/1910/29/2024 HCV ANTIB CONCEPCIÓN hep C virus Ab COMMEN T Test not perfo rmed. Deter iorat ion occur red durin g speci men handl ing. [facility] is provi ding the patie nt with re-co llect ion instr uctio ns. HCV antib concepción alone does not diffe renti ate betwe en previ ously resol carmella infec tion and activ e infec tion. Equiv ocal and React fareed HCV antib concepción resul ts shoul d be follo wed up with an HCV RNA test to suppo rt the diagn osis of activ e HCV infec tion. Not Available [facility] ([facility]) [address] [place], [address], 11/05/2024 18:06:01 10/20/19 25 10/21/2024 GLUCO SE glucose 106 mg/dL 70-99 above high normal Not Available [facility] ([facility]) [address] [place], [address], 11/05/2024 18:06:02 10/20/19 25 10/21/2024 AST (SGOT ) AST (SGOT) 17 IU/L 0-40 normal Not Available [facility] ([facility]) [address] [place], [address], 11/05/2024 18:06:02 10/20/19 25 10/21/2024 ALT (SGPT ) ALT (SGPT) 20 IU/L 0-44 normal Not Available [facility] ([facility]) [address] [place], [address], 11/05/2024 18:06:03 10/20/19 25 10/29/2024 HBSAG SCREE N HBsAg screen COMMEN T Test not perfo rmed. Deter iorat ion occur red durin g speci men handl ing. [facility] is provi ding the patie nt with re-co llect ion instr uctio ns. Not Available [facility] ([facility]) [address] [place], [address], 11/05/2024 18:06:03 10/20/19 25 10/23/[address] PROBL EM request problem COMMEN T [facility] was unabl e to colle ct suffi cient speci men to perfo rm the follo wing test( s), and is provi ding the patie nt with re-co llect ion instr uctio ns. TEST: 8 Chlam ydia/ GC Ampli ficat ion Not Available [facility] ([facility]) [address] [facility], [place], [address], 11/05/2024 18:06:04 10/20/19 25 10/29/[address] PROBL EM request problem COMMEN T Test not perfo rmed. Deter iorat ion occur red durin g speci men handl ing. [facility] is provi ding the patie nt with re-co llect ion instr uctio ns. TEST: [id number] Hep C Virus Ab Panel : [id number] HBsAg Scree n Not Available [facility] ([facility]) [address] [facility] [place], [place], [address], 11/05/2024 18:06:05 02/19/20 25 02/18/2025 MRSA MOLEC ULAR STUDY .note See Note Origi nal Order ing Provi natacha: HARJEET IA T MARTO WADE [facility] - [address] [facility], [place] [address], [place] [address] Not Available [facility] [address] [facility], [place], [address], 02/18/2025 20:18:03 02/19/20 25 02/18/2025 MRSA MOLEC ULAR STUDY MRSA screen PCR Not Detect ed not detect ed Not Available [facility] [address] [place], [address], 02/18/2025 20:18:03 Result Notes None recorded. Problems Name Problem SNOMED Code Status Onset Date Resolution Date Notes Provider Name and Address Organization Details Recorded Time Chronic renal impairmen t Active 2012 Chronic kidney disease, unspecifie d; snomeddesc ription: Chronic renal impairment ; Report Immunity to Registry: Yes; Notes: GFR=40 2012; 53 2013; 45 2017 38-2018; 41 2019; eGFR 28-32 2020; eGFR=48 2021; 2022; Chronic renal impairment ; snomeddesc ription: Chronic renal impairment ; Report Immunity to Registry: Yes; Notes: GFR=40 2012; 53 2013; 2017 38-43 2018; 41 2019; eGFR 28-32 2020; eGFR=48 2021; 38 2023; Not Available [facility] 4 06:58:26 Mixed hyperlipi demia 117888252 Active 2013 Mixed hyperlipid emia; snomeddesc ription: Mixed hyperlipid emia; Report Immunity to Registry: Yes; Not Available [facility] 4 06:58:24 Testicula r hypofunct ion [id number] Active 2013 Other testicular hypofuncti on; snomeddesc ription: Male hypogonadi sm; Report Immunity to Registry: Yes; Not Available [facility] 4 06:58:24 Idiopathi c periphera l neuropath y 44166535 Active 2013 Unspecifie d idiopathic peripheral neuropathy ; snomeddesc ription: Peripheral nerve disease; Report Immunity to Registry: Yes; Not Available [facility] 4 06:58:24 Periphera l nerve disease 627515228 Active 2013 Peripheral nerve disease; snomeddesc ription: Peripheral nerve disease; Report Immunity to Registry: Yes; Not Available [facility] 4 06:58:25 Lichen simplex chronicus 14592125 Active 2013 Lichen simplex chronicus; snomeddesc ription: Lichen simplex chronicus; Report Immunity to Registry: Yes; Not Available [facility] 4 06:58:25 Lichenifi cation and lichen simplex chronicus Active 2013 Lichenific ation and lichen simplex chronicus; snomeddesc ription: Lichen simplex chronicus; Report Immunity to Registry: Yes; Not Available [facility] 4 06:58:25 Skin lesion 57750857 Active 2013 Skin lesion; snomeddesc ription: Skin lesion; Report Immunity to Registry: Yes; Not Available [facility] 4 06:58:25 Male hypogonad ism 16461076 Active 2013 Male hypogonadi sm; snomeddesc ription: Male hypogonadi sm; Report Immunity to Registry: Yes; Not Available [facility] 4 06:58:26 Lipodystr ophy 89315091 Active 2013 Lipodystro phy; snomeddesc ription: Lipodystro phy; Report Immunity to Registry: Yes; Not Available [facility] 4 06:58:26 Disorder of skin and/or subcutane ous tissue 30984573 Active 2013 Unspecifie d disorder of skin and subcutaneo us tissue; snomeddesc ription: Skin lesion; Report Immunity to Registry: Yes; Not Available [facility] 4 06:58:26 Human immunodef iciency virus infection 66025065 Active 2014 Human immunodefi ciency virus [HIV] disease; snomeddesc ription: Human immunodefi ciency virus infection; Report Immunity to Registry: Yes; Notes: [id number] neg 2007; Human immunodefi ciency virus infection; snomeddesc ription: Human immunodefi ciency virus infection; Report Immunity to Registry: Yes; Notes: [id number] neg 2007; Not Available [facility] 4 06:58:25 Diverticu lar disease 207834826 Active 2014 Diverticul ar disease; snomeddesc ription: Diverticul ar disease; Report Immunity to Registry: Yes; Not Available [facility] 4 06:58:25 Diverticu lar disease of colon 997017557 Active 2014 Diverticul osis of colon (without mention of hemorrhage ); snomeddesc ription: Diverticul ar disease; Report Immunity to Registry: Yes; Not Available [facility] 4 06:58:26 Type B viral hepatitis 19123973 Active 2017 Type B viral hepatitis; snomeddesc ription: Type B viral hepatitis; Report Immunity to Registry: Yes; Notes: HBV Core ab pos; s ag neg; s ab pos; Not Available [facility] 4 06:58:24 Viral hepatitis B without hepatic coma 527393710 Active 2017 Unspecifie d viral hepatitis B without hepatic coma; snomeddesc ription: Type B viral hepatitis; Report Immunity to Registry: Yes; Notes: HBV Core ab pos; s ag neg; s ab pos; Not Available [facility] 4 06:58:25 Diarrhea 80341935 Active 2018 Diarrhea; snomeddesc ription: Diarrhea; Report Immunity to Registry: Yes; Diarrhea, unspecifie d; snomeddesc ription: Diarrhea; Report Immunity to Registry: Yes; Not Available [facility] 4 06:58:25 Anogenita l herpesvir al infection 673409631 Active 2019 Anogenital herpesvira l infection, unspecifie d; snomeddesc ription: Genital herpes simplex; Report Immunity to Registry: Yes; Notes: HSV 1 serology neg; HSV 2 pos serology; Not Available [facility] 4 06:58:25 Genital herpes simplex 52062379 Active 2019 Genital herpes simplex; snomeddesc ription: Genital herpes simplex; Report Immunity to Registry: Yes; Notes: HSV 1 serology neg; HSV 2 pos serology; Not Available [facility] 4 06:58:26 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 Medical Equipment None Reported. Allergies No known drug allergies Medications Name Sig Start Date Stop Date Status Note LastModified by Organization Details LastModified Time multivita min tablet Multiple Vitamins Quantity : 30; 3 refill(s ) 11/29 completed Frequenc y: qd; VACCINE_ IND: no; SU_FULL_ NAME: Otilia chaudhary; Not Available Not Available Not Available fluoxetin e 40 mg capsule 40 MG Quantity : 90; Duration : 90; 0 refill(s ) 07/31 completed Duration : 90; VACCINE_ IND: no; Not Available Not Available Not Available amoxicill in 500 mg capsule active Not Available Not Available Not Available furosemid e 40 mg tablet 40 mg tablet; Quantity : 7; Duration : 7; 0 refill(s ) 12/07 completed Duration : 7; VACCINE_ IND: no; Not Available Not Available Not Available fluconazo le 100 mg tablet 100 mg Quantity : 30; Duration : 30; 0 refill(s ) 03/04 completed Frequenc y: qd; Duration : 30; VACCINE_ IND: no; SU_FULL_ NAME: Otilia Martluis chaudhary; Not Available Not Available Not Available gabapenti n 600 mg tablet 600 mg Quantity : 90; 3 refill(s ) 07/09 completed Frequenc y: tid; VACCINE_ IND: no; SU_FULL_ NAME: Otilia Martluis chaudhary; Not Available Not Available Not Available doxycycli ne hyclate 100 mg capsule 100 mg capsule from TAKE 2 CAPSULES BY MOUTH WITHIN 24-72 HRS AFTER CONDOMLE SS SEX. active Not Available Not Available No t Available donepezil 5 mg tablet 5 mg tablet; Quantity : 90; Duration : 90; 0 refill(s ) 04/18 completed Duration : 90; VACCINE_ IND: no; Not Available Not Available Not Available clonidine 0.1 mg/24 hr weekly transderm al patch 0.1 mg/24 hr Quantity : ; 0 refill(s ) 11/29 completed VACCINE_ IND: no; Not Available Not Available Not Available sildenafi l 50 mg tablet TAKE 1 TAB BY MOUTH HALF HOUR BEFORE SEXUAL INTERCOU RSE active Not Available Not Available No t Available furosemid e 10 mg/mL oral solution 10 mg/mL Quantity : ; 0 refill(s ) 05/05 completed VACCINE_ IND: no; Not Available Not Available Not Available Pneumovax -23 25 mcg/0.5 mL injection solution - Quantity : ; 0 refill(s ) 10/30 completed VACCINE_ IND: yes; VACCINE_ NAME: pneumoco ccal polysacc haride PPV23; SU_FULL_ NAME: PCP; Not Available Not Available Not Available metoprolo l tartrate 100 mg tablet TAR TAB 100MG; Quantity : 180; Duration : 90; 0 refill(s ) 10/30 completed Duration : 90; VACCINE_ IND: no; Not Available Not Available Not Available amiodaron e 200 mg tablet 200 mg tablet; Quantity : 66; Duration : 31; 0 refill(s ) 12/07 completed Duration : 31; VACCINE_ IND: no; Not Available Not Available Not Available valacyclo vir 1 gram tablet TAKE 1 TABLET BY MOUTH EVERY DAY 12/27 completed Duration : 30; VACCINE_ IND: no; SU_FULL_ NAME: Otilia chaudhary; Not Available Not Available Not Available hydrocodo ne 5 mg-acetam inophen 325 mg tablet TAKE 1 TABLET BY MOUTH EVERY 4 HOURS NEEDED FOR PAIN active Not Available Not Available No t Available Lopressor 5 mg/5 mL intraveno us solution 1 mg/mL Quantity : ; 0 refill(s ) 11/29 completed VACCINE_ IND: no; Not Available Not Available Not Available donepezil 10 mg tablet TAKE 1 TABLET BY MOUTH DAILY AT BEDTIME active Not Available Not Available No t Available metoprolo l succinate ER 200 mg tablet,ex tended release 24 hr TAKE 1 TABLET (200 MG TOTAL) BY MOUTH 1 (ONE) TIME EACH DAY DO NOT CRUSH OR CHEW. active Not Available Not Available No t Available lisinopri l 20 mg tablet TAKE 1 TABLET BY MOUTH EVERY DAY BLISTER PACK active Not Available Not Available No t Available prednison e 20 mg tablet 20 mg Quantity : 14; 0 refill(s ) 09/18 completed Frequenc y: qd; VACCINE_ IND: no; SU_FULL_ NAME: Otilia chaudhary; Not Available Not Available Not Available Tubersol 5 tub. unit/0.1 mL intraderm al injection solution 5 tubercul in units/0. 1 mL Quantity : ; 0 refill(s ) 1995 active VACCINE_ IND: no; Not Available Not Available Not Available dexametha sone 6 mg tablet 6 mg tablet; Quantity : 6; Duration : 6; 0 refill(s ) 02/15 completed Duration : 6; VACCINE_ IND: no; Not Available Not Available Not Available metoprolo l succinate ER 100 mg tablet,ex tended release 24 hr succinat e ER 100 mg tablet,e xtended release 24 hr; Quantity : 90; Duration : 90; 0 refill(s ) 08/22 completed Duration : 90; VACCINE_ IND: no; Not Available Not Available Not Available amlodipin e 2.5 mg tablet TAKE 1 TABLET BY MOUTH EVERY DAY active Not Available Not Available No t Available chlorthal idone 25 mg tablet 25 mg tablet; Quantity : 90; Duration : 90; 0 refill(s ) 12/07 completed Duration : 90; VACCINE_ IND: no; Not Available Not Available Not Available amlodipin e 5 mg tablet TAKE 1 TABLET BY MOUTH DAILY active Not Available Not Available No t Available aspirin 81 mg tablet,de layed release TAKE 1 TABLET BY MOUTH DAILY active Not Available Not Available No t Available doxycycli ne monohydra te 100 mg tablet Take 1 tablet twice a day by oral route for 30 days, for follicul itis. 2024 active Not Available Not Available Not Avai lable tramadol 50 mg tablet HCL 50 MG TABLET; Quantity : 14; Duration : 7; 0 refill(s ) 09/15 completed Duration : 7; VACCINE_ IND: no; Not Available Not Available Not Available acyclovir 800 mg tablet TAKE 1 TABLET BY MOUTH EVERY DAY 06/19 completed Duration : 30; VACCINE_ IND: no; SU_FULL_ NAME: Otilia Monet jet; Not Available Not Available Not Available ondansetr on 8 mg disintegr ating tablet DISSOLVE 1 TABLET BY MOUTH 3 TIMES DAILY NEEDED FOR NAUSEA & VOMITING . active Not Available Not Available No t Available pantopraz ole 20 mg tablet,de layed release TAKE 1 TABLET BY MOUTH EVERY DAY active Not Available Not Available No t Available clonidine HCl 0.2 mg tablet TAB 0.2MG; Quantity : 90; Duration : 30; 0 refill(s ) 04/05 completed Duration : 30; VACCINE_ IND: no; Not Available Not Available Not Available famotidin e 20 mg tablet TAKE 1 TABLET BY MOUTH TWICE DAILY FOR 14 DAYS. active Not Available Not Available No t Available metoclopr amide 5 mg tablet TAKE 1 TABLET BY MOUTH TWICE A DAY NEEDED FOR NAUSEA AND VOMITING active Not Available Not Available No t Available triamcino lone acetonide 0.025 % topical cream APPLY TO AFFECTED AREA TWICE A DAY FOR 14 DAYS active Not Available Not Available No t Available Imodium A-D 2 mg tablet 1 tab po bid PRN for diarrhea 09/15 completed Duration : 30; VACCINE_ IND: no; SU_FULL_ NAME: Otilia chaudhary; Not Available Not Available Not Available aspirin 325 mg tablet,de layed release 325 mg Quantity : ; 0 refill(s ) 11/29 completed VACCINE_ IND: no; Not Available Not Available Not Available tamsulosi n 0.4 mg capsule TAKE 1 CAPSULE BY MOUTH DAILY active Not Available Not Available No t Available amlodipin e 10 mg tablet 10 mg tablet; Quantity : 90; Duration : 90; 0 refill(s ) active Not Available Not Available No t Available doxycycli ne monohydra te 100 mg capsule 100 MG Quantity : 14; Duration : 7; 0 refill(s ) 04/18 completed Duration : 7; VACCINE_ IND: no; Not Available Not Available Not Available nortripty line 75 mg capsule 75 mg Quantity : 30; Duration : 30; 4 refill(s ) 01/15 completed Duration : 30; VACCINE_ IND: no; SU_FULL_ NAME: Otilia chaudhary; Not Available Not Available Not Available nortripty line 10 mg capsule 10 mg Quantity : ; 0 refill(s ) 07/09 completed VACCINE_ IND: no; Not Available Not Available Not Available metformin 1,000 mg tablet TAB 1000MG; Quantity : 180; Duration : 90; 0 refill(s ) 12/05 completed Duration : 90; VACCINE_ IND: no; Not Available Not Available Not Available lisinopri l 10 mg tablet 10 mg Quantity : ; 0 refill(s ) 11/29 completed VACCINE_ IND: no; Not Available Not Available Not Available metoprolo l tartrate 50 mg tablet tartrate 50 mg tablet; Quantity : 180; Duration : 90; 0 refill(s ) 03/21 completed Duration : 90; VACCINE_ IND: no; Not Available Not Available Not Available hydrochlo rothiazid e 12.5 mg capsule 12.5 MG Quantity : 90; Duration : 90; 0 refill(s ) 07/31 completed Duration : 90; VACCINE_ IND: no; Not Available Not Available Not Available Lorazepam Intensol 2 mg/mL oral concentra te 2 mg/mL Quantity : ; 0 refill(s ) 11/29 completed VACCINE_ IND: no; Not Available Not Available Not Available omeprazol e 20 mg capsule,d elayed release TAKE 1 CAPSULE BY MOUTH DAILY active Not Available Not Available No t Available doxazosin 4 mg tablet MESYLATE 4 MG TAB; Quantity : 90; Duration : 90; 0 refill(s ) 12/30 completed Duration : 90; VACCINE_ IND: no; Not Available Not Available Not Available isosorbid e mononitra te 10 mg tablet 10 mg Quantity : ; 0 refill(s ) 11/29 completed VACCINE_ IND: no; Not Available Not Available Not Available mupirocin 2 % topical ointment APPLY IN AFFECTED SKIN AREA NEEDED 2024 active Not Available Not Available Not Avai lable testoster one cypionate 200 mg/mL intramusc ular oil 200 MG/ML Quantity : 2; Duration : 21; 0 refill(s ) 02/15 completed Duration : 21; VACCINE_ IND: no; Not Available Not Available Not Available lisinopri l 40 mg tablet 40 mg tablet; Quantity : 90; Duration : 90; 0 refill(s ) 12/27 completed Duration : 90; VACCINE_ IND: no; Not Available Not Available Not Available ondansetr on 4 mg disintegr ating tablet DISSOLVE 1 TABLET BY MOUTH EVERY 8 HOURS NEEDED FOR NAUSEA AND VOMITING FOR 3 DAYS. active Not Available Not Available No t Available fluoxetin e 20 mg capsule 20 MG Quantity : 30; Duration : 30; 0 refill(s ) 10/30 completed Duration : 30; VACCINE_ IND: no; Not Available Not Available Not Available metformin ER 500 mg tablet,ex tended release 24 hr ER 500 mg tablet,e xtended release 24 hr; Quantity : 360; Duration : 90; 0 refill(s ) 01/11 completed Duration : 90; VACCINE_ IND: no; Not Available Not Available Not Available doxycycli ne hyclate 100 mg tablet TAKE 1 TABLET BY MOUTH DAILY active Not Available Not Available No t Available Testopel 75 mg implant pellet 75 MG Quantity : 10; Duration : 90; 0 refill(s ) active Not Available Not Available No t Available Hibiclens 4 % topical liquid Apply 1 applicat ion every day by topical route. 2024 active Not Available Not Available Not Avai lable Viramune 200 mg tablet 200 mg Quantity : 60; Duration : 30; 2 refill(s ) 06/07 completed Duration : 30; VACCINE_ IND: no; SU_FULL_ NAME: Otilia Monet jet; Not Available Not Available Not Available finasteri de 5 mg tablet TAKE 1 TABLET BY MOUTH DAILY active Not Available Not Available No t Available metoclopr amide 10 mg tablet 10 mg tablet; Quantity : 28; Duration : 7; 0 refill(s ) 09/30 completed Duration : 7; VACCINE_ IND: no; Not Available Not Available Not Available amoxicill in 875 mg-potass ium clavulana te 125 mg tablet TAKE 1 TABLET BY MOUTH EVERY 12 HOURS FOR 10 DAYS. active Not Available Not Available No t Available azithromy lilly 500 mg tablet 500 mg Quantity : 4; 0 refill(s ) 01/30 completed Frequenc y: x1; VACCINE_ IND: no; SU_FULL_ NAME: Otilia Monet jet; Not Available Not Available Not Available Testim 50 mg/5 gram (1 %) transderm al gel 50 mg/5 g Quantity : 30; 0 refill(s ) 07/09 completed Frequenc y: qd; VACCINE_ IND: no; SU_FULL_ NAME: Otilia Monet jet; Not Available Not Available Not Available Novolog FlexPen U-100 Insulin aspart 100 unit/mL (3 mL) subcutane ous 100/ML (3) Quantity : 15; Duration : 90; 0 refill(s ) active Not Available Not Available No t Available hydrocort isone-min eral oil-white petrolatu m 1 % topical ointment 1% Quantity : 1; Duration : 30; 0 refill(s ) 03/08 completed Frequenc y: bid; Duration : 30; VACCINE_ IND: no; SU_FULL_ NAME: Otilia chaudhary; Not Available Not Available Not Available rosuvasta tin 40 mg tablet TAKE 1 TABLET BY MOUTH DAILY*BL ISTER PACK active Not Available Not Available No t Available Crestor 10 mg tablet 10 mg Quantity : ; 0 refill(s ) 09/18 completed VACCINE_ IND: no; Not Available Not Available Not Available bupropion HCl XL 300 mg 24 hr tablet, extended release TAKE 1 TABLET BY MOUTH EVERY DAY active Not Available Not Available No t Available bupropion HCl XL 150 mg 24 hr tablet, extended release TAKE 1 TABLET BY MOUTH EVERY DAY IN THE MORNING active Not Available Not Available No t Available tadalafil 20 mg tablet TAKE 1 TABLET BY MOUTH 30 MINUTES BEFORE SEXUAL INTERCOU RSE active Not Available Not Available No t Available Alcohol Prep Pads USE DIRECTED TO TEST BLOOD SUGAR THREE TIMES A DAY BEFORE MEALS AND AT BEDTIME active Not Available Not Available No t Available Truvada 200 mg-300 mg tablet TAKE 1 TABLET BY MOUTH EVERY OTHER DAY 02/22 completed Duration : 30; VACCINE_ IND: no; SU_FULL_ NAME: Otilia chaudhary; Not Available Not Available Not Available Cymbalta 30 mg capsule,d elayed release 30 mg Quantity : 30.000; Duration : 30; 4 refill(s ) 07/09 completed Duration : 30; VACCINE_ IND: no; Not Available Not Available Not Available BD Ultra-Fin e Mini Pen Needle 31 gauge x 3/16 USE TO INJECT INSULIN EVERY DAY active Not Available Not Available No t Available fenofibra te micronize d 43 mg capsule 43 mg Quantity : ; 0 refill(s ) 07/22 completed VACCINE_ IND: no; Not Available Not Available Not Available omega-3 acid ethyl esters 1 gram capsule 0 Quantity : 120; Duration : 30; 0 refill(s ) 10/30 completed Duration : 30; VACCINE_ IND: no; Not Available Not Available Not Available sildenafi l (pulmonar y hypertens ion) 20 mg tablet TAKE 1 TABLET BY MOUTH 1/2 HOUR BEFORE SEXUAL INTERCOU RSE active Not Available Not Available No t Available chlorhexi dine gluconate 0.12 % mouthwash 0.12 % Quantity : 473; Duration : 30; 0 refill(s ) 04/25 completed Duration : 30; VACCINE_ IND: no; Not Available Not Available Not Available Hibiclens apply on affected skin for 14 days 04/18 completed Duration : 30; VACCINE_ IND: no; SU_FULL_ NAME: Otilia chaudhary; Not Available Not Available Not Available [place] 3 Quantity : ; 0 refill(s ) 07/22 completed VACCINE_ IND: no; Not Available Not Available Not Available Crestor Quantity : ; 0 refill(s ) 11/29 completed VACCINE_ IND: no; Not Available Not Available Not Available Cymbalta 20 mg Quantity : ; 0 refill(s ) 05/08 completed VACCINE_ IND: no; Not Available Not Available Not Available BD Ultra-Fin e Short Pen Needle 31 gauge x 5/16 ADMINIST ER WITH INSULIN DAILY active Not Available Not Available No t Available metformin (bulk) 100 % powder - Quantity : ; 0 refill(s ) 11/29 completed VACCINE_ IND: no; Not Available Not Available Not Available Fish Oil 340 mg-1,000 mg capsule 1000 mg Quantity : 30; 3 refill(s ) 12/05 completed Frequenc y: qd; VACCINE_ IND: no; SU_FULL_ NAME: Otilia chaudhary; Not Available Not Available Not Available FreeStyle Lite Strips USE 1 TEST STRIP VIA GLUCOMET ER TWICE DAILY DX CODE E11.21 active Not Available Not Available No t Available Humalog KwikPen (U-100) Insulin 100 unit/mL subcutane ous 100/ML Quantity : 15; Duration : 21; 0 refill(s ) 07/31 completed Duration : 21; VACCINE_ IND: no; Not Available Not Available Not Available Plavix 300 mg tablet 300 mg Quantity : ; 0 refill(s ) 07/09 completed VACCINE_ IND: no; Not Available Not Available Not Available metformin ER 1,000 mg 24 hr tablet,ex tended release (gastric reten.) HCL ER 1,000 MG TAB; Quantity : 60; Duration : 30; 0 refill(s ) 04/02 completed Duration : 30; VACCINE_ IND: no; Not Available Not Available Not Available GaviLyte- G 236 gram-22.7 4 gram-6.74 gram-5.86 gram oral solution active Not Available Not Available Not Available Flulaval 6522-1172 45 mcg (15 mcg x 3)/0.5 mL intramusc ular suspensio n - Quantity : ; Duration : 30; 0 refill(s ) 08/12 completed Duration : 30; VACCINE_ IND: yes; VACCINE_ NAME: Influenz a, seasonal , injectab le; SU_FULL_ NAME: Otilia Dias; VIS_DATE : 04:00:00 .0; Not Available Not Available Not Available Prevnar 13 (PF) 0.5 mL intramusc ular syringe - Quantity : ; 0 refill(s ) 08/30 completed VACCINE_ IND: yes; VACCINE_ NAME: Pneumoco ccal conjugat e PCV 13; SU_FULL_ NAME: Otilia chaudhary; Not Available Not Available Not Available sodium,po tassium,m ag sulfates 17.5 gram-3.13 gram-1.6 gram oral soln active Not Available Not Available Not Available Egrifta 1 mg subcutane ous solution 1 MG Quantity : 60; Duration : 30; 0 refill(s ) 09/15 completed Duration : 30; VACCINE_ IND: no; Not Available Not Available Not Available nevirapin e ER 400 mg tablet,ex tended release 24 hr TAB 400MG ER; Quantity : 90; Duration : 90; 0 refill(s ) 02/22 completed Duration : 90; VACCINE_ IND: no; Not Available Not Available Not Available Flulaval 45 mcg (15 mcg x 3)/0.5 mL intramusc ular suspensio n - Quantity : ; 0 refill(s ) active VACCINE_ IND: yes; VACCINE_ NAME: Influenz a, seasonal , injectab le; SU_FULL_ NAME: Other; Not Available Not Available Not Available Myrbetriq 50 mg tablet,ex tended release TAKE 1 TABLET BY MOUTH DAILY. DO NOT CRUSH OR CHEW active Not Available Not Available No t Available Egrifta 2 mg subcutane ous solution 2 mg Quantity : ; 0 refill(s ) 2013 active Frequenc y: qd; VACCINE_ IND: no; Not Available Not Available Not Available Eliquis 5 mg tablet 5 mg tablet; Quantity : 60; Duration : 30; 0 refill(s ) 03/21 completed Duration : 30; VACCINE_ IND: no; Not Available Not Available Not Available Multi Vitamin Quantity : ; 0 refill(s ) 12/05 completed VACCINE_ IND: no; Not Available Not Available Not Available Flulaval 45 mcg (15 mcg x 3)/0.5 mL intramusc ular suspensio n trivalen t Quantity : ; 0 refill(s ) 2012 active VACCINE_ IND: yes; VACCINE_ NAME: Influenz a, seasonal , injectab le; SU_FULL_ NAME: DR. ESCOBEDO P; Not Available Not Available Not Available Flulaval Quantity : ; 0 refill(s ) 2000 active VACCINE_ IND: no; Not Available Not Available Not Available Triumeq 600 mg-50 mg-300 mg tablet 600 mg-50 mg-300 mg tablet; Quantity : 30; Duration : 30; 0 refill(s ) 11/21 completed Duration : 30; VACCINE_ IND: no; Not Available Not Available Not Available Trulicity 1.5 mg/0.5 mL subcutane ous pen injector 1.5 MG/0.5 Quantity : 2; Duration : 28; 0 refill(s ) active Not Available Not Available No t Available Trulicity 0.75 mg/0.5 mL subcutane ous pen injector INJECT 0.5 ML UNDER THE SKIN PER WEEK DX CODE E11.21 active Not Available Not Available No t Available Fluvirin 45 mcg (15 mcg x 3)/0.5 mL intramusc ular suspensio n trivalen t Quantity : ; 0 refill(s ) 12/05 completed VACCINE_ IND: yes; VACCINE_ NAME: Influenz a, seasonal , injectab le; SU_FULL_ NAME: Annaceli s Beaucham p; Not Available Not Available Not Available Tresiba FlexTouch U-200 insulin 200 unit/mL (3 mL) subcutane ous pen INJECT 35 UNITS SUBCUTAN EOUSLY DAILY, ROTATE INJECTIO N SITES active Not Available Not Available No t Available Afluria 45 mcg (15 mcg x 3)/0.5 mL intramusc ular suspensio n trivalen t Quantity : ; 0 refill(s ) 10/30 completed VACCINE_ IND: yes; VACCINE_ NAME: Influenz a, seasonal , injectab le; SU_FULL_ NAME: Otilia Monet l; Not Available Not Available Not Available [facility] (15 mcg x 3)/0.5 mL intramusc ular suspensio n trivalen t Quantity : ; 0 refill(s ) 07/31 completed VACCINE_ IND: yes; VACCINE_ NAME: Influenz a, seasonal , injectab le; SU_FULL_ NAME: Otilia chaudhary; VIS_DATE : 15:35:24 .0; Not Available Not Available Not Available Shingrix (PF) 50 mcg/0.5 mL intramusc ular suspensio n, kit adjuvant ed Quantity : 1; Duration : 1; 1 refill(s ) 10/19 completed Frequenc y: x1; Duration : 1; VACCINE_ IND: no; VACCINE_ NAME: zoster recombin ant; SU_FULL_ NAME: Otilia Monet l; Not Available Not Available Not Available [facility] 60 mcg (15 mcg x 4)/0.5 mL IM suspensio n quadriva lent Quantity : ; 0 refill(s ) 2017 active VACCINE_ IND: yes; VACCINE_ NAME: influenz a, injectab le, quadriva lent; SU_FULL_ NAME: Otilia chaudhary; VIS_DATE : 17:56:43 .0; Not Available Not Available Not Available Dovato 50 mg-300 mg tablet 50 mg-300 mg tablet; Quantity : 30; Duration : 30; 0 refill(s ) 03/21 completed Duration : 30; VACCINE_ IND: no; Not Available Not Available Not Available Afluria Quad 60 mcg (15 mcg x 4)/0.5 mL intramusc ular susp. quadriva lent Quantity : ; 0 refill(s ) 2019 active VACCINE_ IND: yes; VACCINE_ NAME: influenz a, injectab le, quadriva lent; SU_FULL_ NAME: Otilia chaudhary; VIS_DATE : 20:29:39 .0; Not Available Not Available Not Available Afluria Quad 60 mcg (15 mcg x 4)/0.5 mL intramusc ular susp. quadriva lent Quantity : ; 0 refill(s ) 08/22 completed VACCINE_ IND: yes; VACCINE_ NAME: influenz a, injectab le, quadriva lent; SU_FULL_ NAME: Otilia chaudhary; VIS_DATE : 13:21:03 .0; Not Available Not Available Not Available Trulicity 3 mg/0.5 mL subcutane ous pen injector 3 MG/0.5ML Quantity : 2; Duration : 28; 0 refill(s ) 04/18 completed Duration : 28; VACCINE_ IND: no; Not Available Not Available Not Available Trulicity 4.5 mg/0.5 mL subcutane ous pen injector INJECT 0.5 ML UNDER THE SKIN PER WEEK DX CODE E11.21 DOSE INCREASE active Not Available Not Available No t Available cabotegra vir ER 600 mg/3 mL-rilpiv irine ER 900 mg/3mL IM suspensio n,ER Inject 3 mL every 2 months by intramus cular route as directed . 2024 active Not Available Not Available Not Avai lable Prevnar 20 (PF) 0.5 mL intramusc ular syringe - Quantity : 1; Duration : 1; 0 refill(s ) 04/18 completed Frequenc y: x1; Duration : 1; VACCINE_ IND: no; VACCINE_ NAME: Pneumoco ccal conjugat e PCV20, polysacc haride [id number] conjugat e, adjuvant , PF; SU_FULL_ NAME: Otilia chaudhary; Not Available Not Available Not Available cabotegra vir Quantity : ; 0 refill(s ) 2022 active VACCINE_ IND: yes; SU_FULL_ NAME: Otilia chaudhary; VIS_DATE : 18:55:24 .0; Not Available Not Available Not Available rilpiviri ne Quantity : ; 0 refill(s ) 2022 active VACCINE_ IND: yes; SU_FULL_ NAME: Otilia chaudhary; VIS_DATE : 18:56:53 .0; Not Available Not Available Not Available FreeStyle Bri 3 Sensor device active Not Available Not Available Not Available Afluria Quad (6mo up) 60 mcg (15 mcg x 4)/0.5 mL IM susp quadriva lent Quantity : ; 0 refill(s ) 2021 active VACCINE_ IND: yes; VACCINE_ NAME: influenz a, injectab le, quadriva lent; SU_FULL_ NAME: Otilia chaudhary; VIS_DATE : 19:39:22 .0; Not Available Not Available Not Available FreeStyle Bri 3 [place] active Not Available Not Available Not Available Vitals Date Recorded Body height Heart rate Body temperature Body mass index (BMI) Body weight Systolic And Diastolic Provider Name and Address Organization Details Last Updated DateTime 5 175.26 cm 95 /min 97.6 [degF] 24.5 kg/m2 42859.3 3 g 124/78 mm[Hg] Tripp WHITE 5 15:12:47 Social History Question Answer Notes LastModified by Organizat ion Details LastModified Time Are You Blind Or Do You Have Difficulty Seeing? No [email or web address] Information n ot available 05/27/2023 Are You Deaf Or Do You Have Serious Difficulty Hearing? No Information not available 05/27/2023 Which Of Your Hands Is Dominant? Right [email or web address] Information n ot available 05/27/2023 What Is Your Relationship Status? [email or web address] Information not available 05/27/2023 Do You Use Your Seat Belt Or Car Seat Routinely? Yes [email or web address] Information not available 05/27/2023 Do You Have Difficulty Walking Or Climbing Stairs? No [email or web address] Information not available 05/27/2023 Sex: Male Functional Status Question Answer Note LastModified by Organizat ion Details LastModified Time Do you have transportation difficulties? No [email or web address] Information not available 05/27/2023 Are you able to walk? YESWOREST [email or web address] Information not available 05/27/2023 Do you have difficulty doing errands alone? No [email or web address] Information not available 05/27/2023 Are you able to care for yourself independently? Yes [email or web address] Information not available 05/27/2023 Do you have difficulty dressing, bathing, grooming, or toileting? No Information not available 05/27/2023 Mental Status Question Answer Note LastModified by Organization D etails LastModified Time Do you have difficulty concentrating, remembering or making decisions? Yes [email or web address] Information no t available 05/27/2023 Family History Nothing Reported Notes:Family history unknown , Response Property: Yes; , No known relatives, Response Property: Yes; Medical History Condition Response Depression Y Heart Problems Y Diabetes Y AIDS/HIV Y Eczema Y Heart Disease Y Immunizations Vaccine Type Date Status Note Provider Nam e and Address Organization Details Recorded Time Influenza, split virus, quadrivalent, preservative 8 completed Not Available [facility] 10/30/2023 06:54:12 Influenza, split virus, quadrivalent, preservative 0 completed Not Available [facility] 10/30/2023 06:54:12 Influenza, split virus, quadrivalent, preservative 2 completed Not Available [facility] 10/30/2023 06:54:13 Past Encounters Encounter ID Performer Location Encounter Start Date Encounter Closed Date Diagnosis/Indication Diagnosis SNOMED-CT Code Diagnosis ICD10 Code Diagnosis Note [id number] Otilia Granado MD Main Office [address] [place] [phone] 05/27/2023 15:25:03 05/27/2023 16:27:26 Human immunodeficiency virus infection 30744554 B20 HIV: Continue IM 900/600 Cabenuva IM. QOM.pt is aware of new meds and clinical trial options.fl u and RSV vaccines prescribed .U=U. pt aware of PreP availabili ty. 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 Increase to bid x 10-14 days if active flareuup. skin hydration. topical mupirocin cream bid PRN for active infection. hibiclens to apply as directed. ckean bed linen; hand washing plan of care discussed. [id number] Otilia Granado MD Main Office [address] [place] [address] 06/20/2023 15:39:00 06/20/2023 16:06:48 Human immunodeficiency virus infection 69446916 B20 HIV: Continue IM 900/600 Cabenuva IM. QOM.pt is aware of new meds and clinical trial options.fl u and RSV vaccines prescribed .U=U. pt aware of PreP availabili ty. [id number] Otilia Granado MD Main Office [address] [place] [address] 07/30/2023 15:46:14 07/30/2023 16:20:18 Human immunodeficiency virus infection 45987154 B20 HIV:Contin ue IM 900/600 Cabenuva IM. QOM.compli ance with visits and window visits reviewed.U =U. 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 Increase to bid x 10-14 days if active flareup. skin hydration. topical mupirocin cream bid PRN for active infection. hibiclens to apply as directed. ckean bed linen; hand washing plan of care discussed. [id number] Otilia Granado MD Main Office [address] [place] [phone] 08/21/2023 14:07:57 08/21/2023 14:31:48 Human immunodeficiency virus infection 96150746 B20 HIV:Contin ue IM 900/600 Cabenuva IM. QOM.compli ance with visits and window visits reviewed.U =U. pt aware of PreP availabili ty.condom use for STI prevention [id number] Otilia Granado MD Main Office [address] [place] [address] 10/22/2023 15:39:39 10/22/2023 16:09:59 Human immunodeficiency virus infection 07711234 B20 HIV:Contin ue IM 900/600 Cabenuva IM. QOM.compli ance with visits and window visits reviewed.U =U. 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 Increase to bid x 10-14 days if active flareup. skin hydration. topical mupirocin cream bid PRN for active infection. hibiclens to apply as directed. ckean bed linen; hand washing plan of care discussed. [id number] Otilia Granado MD Main Office [address] [place] [phone] 12/20/2023 15:58:53 12/23/2023 15:02:55 Human immunodeficiency virus infection 82058220 B20 HIV:Contin ue IM 900/600 Cabenuva IM. QOM.compli ance with visits and window visits reviewed.U =U. pt aware of PreP availabili ty.condom use for STI prevention [id number] Otilia Granado MD Main Office [address] [place] [address] 02/04/2024 15:20:38 02/04/2024 16:45:18 Human immunodeficiency virus infection 63307509 B20 HIV:Contin ue IM 900/600 Cabenuva IM. QOM.compli ance with visits and window visits reviewed.U =U. pt aware of PreP availabili ty.labscon dom use for STI prevention DOxy PEP and PreP reviewed Methicilli n resistant Staphylococcus aureus infection 332187792 A49.02 MRSA: stable. on DOxycyclin e 100mg po qd for suppressio n tx. Increase to bid x 10-14 days if active flareup. skin hydration. topical mupirocin cream bid PRN for active infection. hibiclens to apply as directed. clean bed linen; hand washing plan of care discussed. [id number] Otilia Granado MD Main Office [address] [place] [phone] 02/19/2024 15:45:21 02/19/2024 16:13:41 Human immunodeficiency virus infection 94540391 B20 HIV:Contin ue IM 900/600 Cabenuva IM. QOM.compli ance with visits and window visits reviewed.U =U. pt aware of PreP availabili ty.labscon dom use for STI prevention DOxy PEP and PreP reviewed [id number] Otilia Granado MD Main Office [address] [place] [address] 04/21/2024 15:37:41 04/21/2024 16:15:40 Human immunodeficiency virus infection 37911847 B20 HIV:Contin ue IM 900/600 Cabenuva IM. QOM.compli ance with visits and window visits reviewed.U =U. pt aware of PreP availabili ty.labscon dom use for STI prevention DOxy PEP and PreP reviewed [id number] Otilia Granado MD Main Office [address] [place] [address] 05/07/2024 15:28:43 05/07/2024 16:22:22 Human immunodeficiency virus infection 05279213 B20 HIV:Contin ue IM 900/600 Cabenuva IM. next dose 06/2024lab s given to pt. will go next weekcompli ance with visits and window visits reviewed.U =U. pt aware of PreP availabili ty.condom use for STI prevention Methicilli n resistant Staphylococcus aureus infection 080692845 A49.02 MRSA: stable. on DOxycyclin e 100mg po qd for suppressio n tx. Increase to bid x 10-14 days if active flareup. skin hydration. topical mupirocin cream bid PRN for active infection. hibiclens to apply as directed. clean bed linen; hand washinghe will see dermatolog y in a few weeks to address bruises on skinplan of care discussed. Exposure t o sexually transmissible disorder 737838770 Z20.2 DoxyPeP.pt interested in Doxycyclin e for prevention of bacterial STI's.Inst ructions on correct use reviewed. no more than 2 doses per day.condom use reviewed.p t aware of PreP availabili tyoral and urine site testing GC/chla,yd ia done.Johnathan quinteros doxycyclin e hyclate 100 mg capsule from TAKE 2 CAPSULES BY MOUTH WITHIN 24-72 HRS AFTER CONDOMLESS SEX. to 2 capsules po within 24-72 hrs after condomless sex. Depressive disorder 6450 6681 F32.A declines medication pill fatigued.n o SI/no HIrefer to therapistt o ER if SI/[place] [id number] Otilia Granado MD Main Office [address] [place] [phone] 06/19/2024 15:07:34 06/19/2024 15:49:08 Human immunodeficiency virus infection 99839848 B20 HIV:Contin ue IM 900/600 Cabenuva IM. QOM.compli ance with visits and window visits reviewed.U =U. pt aware of PreP availabili ty.labscon dom use for STI prevention DOxy PEP and PreP reviewed [id number] Otilia Granado MD Main Office [address] [place] [phone] 08/20/2024 15:28:00 08/20/2024 15:55:43 Human immunodeficiency virus infection 51668869 B20 HIV:Contin ue IM 900/600 Cabenuva IM. QOM. administer ed today; next dose omp liance with visits and window visits reviewed.l abs on next appointmen tcondom use for STI prevention DOxy PEP and PreP reviewed [id number] Otilia Granado MD Main Office [address] [place] [phone] 10/22/2024 16:25:18 10/22/2024 16:58:46 Human immunodeficiency virus infection 12301584 B20 HIV:Contin ue IM 900/600 Cabenuva IM. QOM. administer ed today; next dose omp liance with visits and window visits reviewed.l abs on next appointmen tcondom use for STI prevention DOxy PEP and PreP reviewed [id number] Otilia Granado MD Main Office [address] [place] [phone] 12/18/2024 16:03:05 12/18/2024 16:45:38 Human immunodeficiency virus infection 57866052 B20 HIV:Contin ue IM 900/600 Cabenuva IM. QOM. administer ed today;next dose omp liance with visits and window visits reviewed.l abscondom use for STI prevention DOxy PEP and PreP reviewedRS V, [email or web address] [place] [id number] Otilia Granado MD Main Office [address] [place] [address], [place] [address] 02/18/2025 14:42:24 02/18/2025 15:41:55 Human immunodeficiency virus infection 06508464 B20 HIV:Contin ue IM 900/600 Cabenuva IM. QOM.admini stered today in area not affected by skin folliculit isnext dose omp liance with visits and window visits reviewed.U =U reviewed Methicilli n resistant Staphylococcus aureus infection 290493588 A49.02 MRSA:Incre ase to bid x 10-14 days active flareup, then decrease to qd suppressio n tx. n/a skin hydration. topical mupirocin cream bid PRN for active infection. hibiclens to apply as directed. clean bed linen; hand washingavo id touching affected skincall if worsening sxbacteria l culture sample obtained.p elke of care discussed. Health Concerns Section Related Observation LastModified by Organization Detai ls LastModified Time None Recorded Concern Status LastModified by Organization Details LastModified Time None Recorded Advance Directives Directive None Recorded Payers Insurance Date Sequence Insurance Name Policy Number Policy Renee Covered Member ID Renee Member ID Guarantor Name 04/21/2024 1 [place] [employer] Demetri Cruz [id number] Demerti Cruz 04/21/2024 2 [place] [facility] Demetri Cruz [id number] Demetri Cruz 04/30/2024 1 [place] [facility] Demetri Cruz [id number] Demetri Cruz 02/24/2025 1 [facility] - DOS ON OR AFTER 2022 - MEDICARE [place]VANTAGE [place]MEDICARE REPLACEMENT/AD VANTAGE - PPO) Demetri Cruz [id number] Demetri Cruz 01/29/2025 2 [place] [facility] Demetri Cruz [id number] Demetri Cruz 04/30/2024 2 [place] [facility] Demetri Cruz [id number] Demetri Cruz 04/21/2024 2 [place] [facility] Demetri Cruz [id number] Demetri Cruz
--- OUTSIDE RECORDS SUMMARY | 2025-04-05 14:52 | XMS_ITS | Clinical Summary ---
Author Organization [facility] Address [address] [place] [id number] Phone Care Team Providers Care Manager Subway Name Role Phone Julito Don MD Primary Care Provider [phone] Medications tesamorelin (EGRIFTA) 2 mg SolR Subcutaneous Active testosterone (TESTOPEL) 75 mg Pllt subcutaneous implant Implant Active FLUoxetine (PROZAC) 20 MG capsule Take 1 capsule by mouth every morning. Active ASPIRIN ORAL 1 tab Oral Active metFORMIN (GLUCOPHAGE) 1000 MG tablet Take 1 tablet by mouth 2 (two) times a day with meals. Active metoprolol succinate (TOPROL-XL) 100 MG 24 hr tablet Orally Acti ve lisinopril (PRINIVIL,ZESTRI L) 20 MG tablet Take 1 tablet by mouth daily. Active tamsulosin (FLOMAX) 0.4 mg Cp24 Take 1 capsule by mouth daily. Active doxazosin (CARDURA) 4 MG tablet Take 1 tablet by mouth daily. Active hydroCHLOROthiaz fei (MICROZIDE) 12.5 mg capsule Take 1 capsule by mouth daily. Active amLODIPine (NORVASC) 10 MG tablet Take 1 tablet by mouth daily. Active levonorgestrel-e thin estradiol (TRIVORA, 28, ORAL) 1 tablet Orally Once a day Active Multivits/Iron Fum/FA/D3/Lycop (MULTI FOR HIM ORAL) Active omega-3s/dha/epa /fish oil (OMEGA 3 ORAL) Active rosuvastatin (CRESTOR) 40 MG tablet Take 1 tablet by mouth daily. Active INSULIN DEGLUDEC SUBQ Active INSULIN LISPRO SUBQ Active Family History Medical History Relation Comments CV disease Father 2 Cancer Father 2 CV disease Mother 2 Diabetes mellitus Mother 2 Relation Status Comments Father 1 Father 2 Mother 1 Mother 2 Social History Tobacco Use Types Packs/Day Years Used Date Smoking Tobacco: Never Assessed Education Answer Date Recorded Are you interested in more education? Not on alexus e 10/01/2023 Are you concerned about learning? Not on file 10/01/2023 No 10/01/2023 No 10/01/2023 Digital Access Answer Date Recorded No 10/01/2023 No 10/01/2023 Reliable internet access at home? Not on file 10/01/2023 Device with a working camera? Not on file Sex and Gender Information Value Date Recorded Sex Assigned at Not on file Legal Sex Male 10:36 PM EDT Gender Identity Not on file Sexual Orientation Not on file Last Filed Vital Signs Vital Sign Reading Time Taken Comments Blood Pressure 123/70 09/28/2016 10:35 AM EST Pulse - - Temperature - - Respiratory Rate - - Oxygen Saturation - - Inhaled Oxygen Concentration - - Weight 99.3 kg (219 lb) 09/28/2016 10:35 AM EST Height 171.5 cm (5' 7.5 ) 09/28/2016 10:35 AM ES T Body Mass Index 33.79 09/28/2016 10:35 AM EST Plan of Treatment Not on file Medical Devices Not on file Insurance MEDICARE PART A & B [place] [facility] B [employer] MEDICARE PART A & B [employer] [facility] PART [facility] [place] [facility] A & [place] Care Teams Manager Subway Relationship Specialty Start Date End Date Julito Don MD PCP - General 09/12/17 Additional Source Comments The information contained in this document represents components of the legal health record. It is not the complete legal health record.[facility]
--- OUTSIDE RECORDS SUMMARY | 2025-04-05 14:52 | XMS_ITS | Encounter Summary ---
Author Organization [facility], Address [address] [place] [address] Phone Care Team Providers Care Manager Intern Name Role Phone Shashi Ingram MD Primary Care Provider [phone] Encounter Details Date Type Department Care Team (Late st Contact Info) Description 10/07/2023 Documentation Only [facility], [address] [address] Bayron Brandt DO [address] [place] [address] Social History Tobacco Use Types Packs/Day Years [...] Care Team (Late st Contact Info) Description 08/25/2025 2:15 PM EST Office Visit [facility] [address] [address] Bayron Brandt DO [address] [place] [address] documented as of this encounter Visit Diagnoses Not on filedocumented in this encounter Care Teams Manager Intern Relationship Specialty Start Date End Date Shashi Ingram MD [facility] [address] [place], [place] PCP - General Family Medicine 02/17/21 documented as of this encounter
--- OUTSIDE RECORDS SUMMARY | 2025-04-05 14:52 | XMS_ITS | Encounter Summary ---
Author Organization [facility] Address [address] [place] [address] Care Team Providers Care Jig Boring Machine Operator For Metal Name Role Phone Bailey Ingram MD Primary Care Provider [phone] Encounter Details Date Type Department Care Team (Late st Contact Info) Description 02/18/[address] [facility] - Main Lab [address] [place] [address] Otilia Granado MD [address] [place] [address] Methicillin resistant Staphylococcus aureus infection, unspecified site Social History Tobacco Use Types Packs/Day Years [...] Procedure Name Priority Date/Time Associated Diagnosis Comments MRSA PCR Routine 02/18/2025 12:00 AM EDT Methicillin resistant Staphylococcus aureus infection, unspecified site documented in this encounter Results * MRSA molecular study (02/18/2025 12:00 AM EDT) MRSA Screen PCR Not Detected Not Detected LAB MICROBIOLOGY METHOD 02/18/2025 8:16 PM EDT [facility] Swab Both anterior nares / Unknown 02/18/2025 02/18/2025 6:30 PM EDT us Otilia Granado MD LAB MICROBIOLOGY - GENERA L ORDERABLES Final Result [facility] [place] ([facility] LAB [address] [place] [address], documented in this encounter Visit Diagnoses Diagnosis Methicillin resistant Staphylococcus aureus infection, unspecified site documented in this encounter Care Teams Jig Boring Machine Operator For Metal Relationship Specialty Start Date End Date Bailey Ingram MD [address] [place] [phone] PCP - General Family Medicine 11/13/24 documented as of this encounter
--- NOTE | 2025-04-05 16:08 | PC.NURSE ---
patient tried calling his son, sister and neighbor, patient is currently unable to get ride home from hospital. this rn attempted to call patient emergency contact krystal (sister) went to x2. this rn reached out to patient son, for ride home, states he is three hours away and is unable to get patient but will call back with potential plan.
[2025-04-05 16:32] VITALS: BP 163/87; PULSE 87; RESP 14; TEMP 37; O2SAT 97
--- NOTE | 2025-04-05 16:47 | PC.NURSE ---
patient sister picking patient up.
== END 2025-04-05 16:47 | disposition home or self-care (01) ==
PROVIDERS: Emergency Provider Emergency Medicine; PCP Family Medicine
DX: R11.0 Nausea (principal); E11.22 Type 2 diabetes mellitus with diabetic chronic kidney disease; I12.9 Hypertensive chronic kidney disease with stage 1 through stage 4 chronic kidney disease, or unspecified chronic kidney disease; N18.2 Chronic kidney disease, stage 2 (mild); B20 Human immunodeficiency virus [HIV] disease; I45.19 Other right bundle-branch block; Z79.82 Long term (current) use of aspirin; Z79.4 Long term (current) use of insulin; Z79.899 Other long term (current) drug therapy
CPT/HCPCS: 36415; 80053; 84484; 85025; 93005; 96361; 96374; 96375; 99284; 99285; J2405; J3360

== ENCOUNTER → 2025-04-05 12:56 | Outpatient (BNV) | payer OTHER, SELFPAY ==
[2022-03-27 08:59] VITALS: BP 136/70; BMI 27.3
== END ==
PROVIDERS: Emergency Provider Emergency Medicine; PCP Family Medicine; Visit Provider Internal Medicine Cardiovascular Disease
DX: I45.10 Unspecified right bundle-branch block (principal); I49.9 Cardiac arrhythmia, unspecified
CPT/HCPCS: 93010

== ENCOUNTER 2025-04-07 08:11 | Emergency (ER) | payer OTHER, SELFPAY ==
[2022-03-27 08:59] VITALS: BP 136/70; BMI 27.3
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
[2025-04-07 08:21] VITALS: BP 181/108; BP 200/120; PULSE 80; PULSE 87; RESP 16; TEMP 36.8; O2SAT 95; O2SAT 97; BMI 25.7
[2025-04-07 08:28] VITALS: BP 181/108; PULSE 87; RESP 16; TEMP 36.8; O2SAT 97
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
[2025-04-07 09:11] LABS: MANUAL DIFF FLAG NO
[2025-04-07 09:14] LABS: Hematocrit 49.1 % (42.0-52.0); Hemoglobin 17.3 g/dl (14.0-18.0); Imm Gran Abs Auto 0.12 X10*3/uL (0.00-0.03); Imm Gran Pct Auto 0.8 % (0.0-0.4); Lymphocytes Absolute Auto 1.2 X10*3/uL (1.2-4.9); Mean Corpuscular HGB Conc 35.2 g/dl (31.0-36.0); Mean Corpuscular Hemoglobin 31.4 pg (27.0-33.0); Mean Corpuscular Volume 89.1 fL (80.0-98.0); NRBC Abs Auto 0.000 X10*3/uL (0.0-0.012); NRBC Pct Auto 0.0 /100WBC (0.0-0.2); Platelet Count 171 X10*3/uL (160-400); Red Blood Count 5.51 X10*6/uL (4.60-5.80); White Blood Count 14.8 X10*3/uL (4.8-10.8)
[2025-04-07 09:27] LABS: Alanine Aminotransferase 19 U/L (0-40); Albumin Level 3.9 g/dL (3.5-5.0); Alkaline Phosphatase 57 U/L (39-117); Anion Gap 12 (12-20); Aspartate Amino Transferase 16 U/L (5-37); Blood Urea Nitrogen 38 mg/dL (9-16); Calcium 8.6 mg/dL (8.4-10.2); Carbon Dioxide 25 mmol/L (22-29); Chloride 106 mmol/L (96-108); Creatinine Clr Calc Pharmacy 44.7; Estimated Glomerular Filt Rate 47; Potassium 3.8 mmol/L (3.3-5.1); Sodium 139 mmol/L (135-145); Total Protein 7.0 g/dL (6.5-8.0)
--- OUTSIDE RECORDS SUMMARY | 2025-04-07 09:32 | XMS_ITS | Encounter Summary ---
Author Organization [facility], Address [address] [place] [address] Phone Care Team Providers Care Filling And Stapling Machine Operator Name Role Phone Shashi Ingram MD Primary Care Provider [phone] Encounter Details Date Type Department Care Team (Late st Contact Info) Description 10/07/2023 Documentation Only [facility], [address] [place] [address] Bayron Brandt DO [address] [place] [address] Social History Tobacco Use Types [...] Visit [facility] [address] [place] [address] Bayron Brandt DO [address] [place] [address] documented as of this encounter Visit Diagnoses Not on filedocumented in this encounter Care Teams Filling And Stapling Machine Operator Relationship Specialty Start Date End Date Shashi Ingram MD [facility] [place], [place] PCP - General Family Medicine 02/17/21 documented as of this encounter
--- OUTSIDE RECORDS SUMMARY | 2025-04-07 09:32 | XMS_ITS | Patient Health Record ---
Author Organization [facility] Address [address] [place] [address] Care Team Providers Care Anesthesiologist Name Role Phone Bailey Ingram MD Primary Care Provider Concepcion Medina Unavailable [phone] Allergies No Known Allergies Results Component Value [...] Problem Status W/U Status Risk Notes Problem Acquired hammer toe of right foot (9681795223170503 ) Other hammer toe(s) (acquired), right foot (M20.41) Active confirmed Problem Acquired hammer toe of left foot (0582155045789765 ) Other hammer toe(s) (acquired), left foot (M20.42) Active confirmed Problem Plantar wart (54399480) Plantar wart (B07.0) Active confirmed Problem Polyneuropathy due to type 2 diabetes mellitus (750004488) Type 2 diabetes mellitus with diabetic polyneuropathy (E11.42) Active confirmed Problem Difficulty balancing when standing (143603414) Unsteady gait (R26.81) Active confirmed Vital Signs Blood pressure diastolic 82 mm Hg 03/16/2025 Height 5ft9in in 03/16/2025 Blood pressure systolic 128 mm Hg 03/16/2025 Weight 175 lbs 03/16/2025 BMI 25.84 kg/m2 03/16/2025 Encounters Encounter Location Date Provider Diagnosis [facility] [address] [place] [address] 01/01/2025 Concepcion Koehler Type 2 diabetes mellitus with diabetic polyneuropathy E11.42 ; Other hammer toe(s) (acquired), left foot M20.42 ; Plantar wart B07.0 ; Left foot pain M79.672 and Other hammer toe(s) (acquired), right foot M20.[address] [address] 03/16/2025 Concepcion Koehler Other hammer toe(s) (acquired), left foot M20.42 ; Unsteady gait R26.81 ; Type 2 diabetes mellitus with diabetic polyneuropathy E11.42 ; Plantar wart B07.0 ; Left foot pain M79.672 ; Other hammer toe(s) (acquired), right foot M20.41 and History of fall Z91.[address] [address] 11/13/2024 Concepcion Koehler Assessments Encounter Date Diagnosis [...] Plan Of Treatment Next Appt Details Provider Name:Conecpcion Isabel coronado, 06/01/2025 04:00:00 PM, [address], [place], [address], Insurance Providers Payer Name Payer Address Payer Phone Subscriber Number Group Number Insured Name Patient Relationship to Insured Coverage Start Date Coverage End Date [facility] [employer] Claims [address] [place] [phone] [id number] Demetri Cruz Self - patient is the insured Medical (General) History Medical History History ICD Code Angina Back,Hip,and Knee pain CAD (Cholesterol) Dementia Depression Diabetic Heart disease HBP Kidney disease Liver disease Numbness HIV PVD Surgical History Surgery Date(Month/Year) Heart 2011 Hospitalization History Reason Date(Month/Year) Fell 12/01
--- OUTSIDE RECORDS SUMMARY | 2025-04-07 09:33 | XMS_ITS | Clinical Summary ---
Author Organization [facility] Address [address] [facility] [address] [place] [address] Phone Care Team Providers Care Maintenance Leader Name Role Phone Julito Don MD Primary Care Provider [phone] Medications tesamorelin (EGRIFTA) 2 mg SolR Subcutaneous [...] B [place] PART A & B [facility] PART [facility] & B [employer] MEDICARE PART A & B [employer] MEDICARE PART A & B [facility] PART [facility] & B [place] PART [place] & B [facility] PART A & B [place] Care Teams Maintenance Leader Relationship Specialty Start Date End Date Julito Don MD PCP - General 09/12/17 Additional Source Comments The information contained in this document represents components of the legal health record. It is not the complete legal health record.[facility]
--- OUTSIDE RECORDS SUMMARY | 2025-04-07 09:33 | XMS_ITS | Encounter Summary ---
Author Organization [facility] Address [address] [place] [address] Care Team Providers Care Sand Mixer Machine Name Role Phone Bailey Ingram MD Primary Care Provider [phone] Encounter Details Date Type Department Care Team (Late st Contact Info) Description 02/18/2025 Lab Requisition [facility] - Main Lab [address] [facility] [place] [address] Otilia Granado MD [address] [place] [address] Methicillin resistant Staphylococcus aureus infection, unspecified site [...] LAB MICROBIOLOGY METHOD 02/18/2025 8:16 PM EDT [facility] ([facility] Swab Both anterior nares / Unknown 02/18/2025 02/18/2025 6:30 PM EDT us Otilia Granado MD LAB MICROBIOLOGY - GENERA L ORDERABLES Final Result [facility] [place] ([facility] H[facility]PITAL LAB [address] [place] [address], documented in this encounter Visit Diagnoses Diagnosis Methicillin resistant Staphylococcus aureus infection, unspecified site documented in this encounter Care Teams Sand Mixer Machine Relationship Specialty Start Date End Date Bailey Ingram MD [address] [place] [phone] PCP - General Family Medicine 11/13/24 documented as of this encounter
[2025-04-07 09:51] LABS: Resp Syncy Virus RNA Qual PCR NEGATIVE (Negative); SARS COV2 PCR INHOUSE NEGATIVE (Negative)
[2025-04-07 10:08] VITALS: BP 161/90
[2025-04-07 10:50] VITALS: BP 161/90; PULSE 94; RESP 16; TEMP 37.1; O2SAT 96
== END 2025-04-07 11:05 | disposition home or self-care (01) ==
PROVIDERS: Emergency Provider Emergency Medicine; PCP Family Medicine
DX: F41.9 Anxiety disorder, unspecified (principal); R41.0 Disorientation, unspecified; R51.9 Headache, unspecified; F03.90 Unspecified dementia, unspecified severity, without behavioral disturbance, psychotic disturbance, mood disturbance, and anxiety; I10 Essential (primary) hypertension; I25.10 Atherosclerotic heart disease of native coronary artery without angina pectoris; E11.9 Type 2 diabetes mellitus without complications; B20 Human immunodeficiency virus [HIV] disease; Z95.1 Presence of aortocoronary bypass graft; Z79.4 Long term (current) use of insulin
CPT/HCPCS: 70450; 80053; 85025; 87637; 99284

== ENCOUNTER → 2025-04-07 09:05 | Outpatient (BNV) | payer OTHER, SELFPAY ==
[2022-03-27 08:59] VITALS: BP 136/70; BMI 27.3
== END ==
PROVIDERS: Emergency Provider Emergency Medicine; PCP Family Medicine; Visit Provider Radiology Diagnostic Radiology
DX: R41.0 Disorientation, unspecified (principal)
CPT/HCPCS: 70450

== ENCOUNTER 2025-07-18 13:57 | Inpatient (IN) | payer OTHER, SELFPAY ==
[2022-03-27 08:59] VITALS: BP 136/70; BMI 27.3
--- OUTSIDE RECORDS SUMMARY | 2025-06-01 11:00 | XMS_ITS ---
Author Organization [facility] Address [address] [place] [address] Care Team Providers Care Dispatch Clerk Name Role Phone Bailey Ingram MD Primary Care Provider UnavailConcepcion Roman Unavailable [phone] Medications Medication SIG (Take, Route, Frequency, Duration) Notes Start Date End Date Status Ibuprofen 800 MG Oral; Duration: 7 Days Active Metoprolol Succinate ER 200 MG Oral; Duration: 28 Days Not- Taking Physical Therapy . History of fall, unsteady gait. Balance and strength training, ROM and gait training .; Duration: 30 days 03/16/2025 Active Tresiba FlexTouch 200 UNIT/ML Subcutaneous; Duration: 45 Days Active Extra Depth Orthopedic Shoes (1 Pair) with Customized Heat Molded Multidensity Innersoles (3 Pair) as directed Dx: NIDDM/Polyneuropathy (E11.42), Hammertoe Foot Deformity (M20.41,M20.42), Preulcerative Skin Lesion(s) (L85.1 01/01/2025 Active Donepezil HCl 10 MG Oral; Duration: 28 Days Active buPROPion HCl ER (XL) 150 MG Oral; Duration: 28 Days Acti ve Metoprolol Succinate ER 200 MG Oral; Duration: 28 Days Acti ve amLODIPine Besylate 10 MG Oral; Duration: 28 Days Acti ve Finasteride 5 MG Oral; Duration: 28 Days Active Metoprolol Succinate ER 200 MG Oral; Duration: 28 Days Acti ve Lisinopril 20 MG Oral; Duration: 28 Days Active FreeStyle Bri 3 Sensor - ; Duration: 28 Days Active Amoxicillin 500 MG Oral; Duration: 7 Days Active Encounters Encounter Location Date Provider Diagnosis [facility] [place] [address] [place] [address] 06/01/2025 Concepcion Koehler Plan Of Treatment No Information Progress Notes * Demetri CRUZDOB:1950 (74 yo M)Acc No.[id number]:06/01/2025 Progress Note Patient: Demetri RICH Provider: Jahaira Koehler DPM :1950 A ge:74 Y S ex:Male Date:06/01/2025 Address:[address] [place] [address], [facility] [address], [facility] Pcp:Bailey Ingram MD Subjective: * Chief Complaints: * * Medical History: * Medications: T aking Tresiba FlexTouch 200 UNIT/ML Solution Pen-injector Subcutaneous , Taking Ibuprofen 800 MG Tablet Oral , Taking Amoxicillin 500 MG Capsule Oral , Taking Lisinopril 20 MG Tablet Oral , Taking FreeStyle Bri 3 Sensor - Miscellaneous , Taking Metoprolol Succinate ER 200 MG Tablet Extended Release 24 Hour Oral , Taking amLODIPine Besylate 10 MG Tablet Oral , Taking buPROPion HCl ER (XL) 150 MG Tablet Extended Release 24 Hour Oral , Taking Metoprolol Succinate ER 200 MG Tablet Extended Release 24 Hour Oral , Taking Donepezil HCl 10 MG Tablet Oral , Taking Finasteride 5 MG Tablet Oral , Taking Extra Depth Orthopedic Shoes (1 Pair) with Customized Heat Molded Multidensity Innersoles (3 Pair) as directed Dx: NIDDM/Polyneuropathy (E11.42), Hammertoe Foot Deformity (M20.41,M20.42), Preulcerative Skin Lesion(s) (L85.1 , Taking Physical Therapy . . History of fall, unsteady gait. Balance and strength training, ROM and gait training . , Not-Taking/PRN Metoprolol Succinate ER 200 MG Tablet Extended Release 24 Hour Oral Objective: * Vitals: Assessment: Plan: * Treatment: * Images: * The named appointment provid er may or may not be the originator of this progress note, and it is not deemed complete until electronically signed by the appointment provider. Sign off status: Pending * Provider: Jahaira Koehler DPM Date: 0 06/01/2025 Generated for Jillian Martins/[place] on: 09/17/2024 02:21 PM EST
--- NOTE | ~2025-07-18 | CT_ITS ---
CLINICAL HISTORY: fall, does not know if headstrike CT cervical spine without contrast Comparison: None Findings: Normal limited view of the intracranial contents. Soft tissues of the neck are normal. Lung apices are normal. Normal vertebral body alignment. No fractures or dislocations. [id number] diffuse degenerative changes are present, more significant C4-6.. Impression: 1. No cervical vertebral fracture or traumatic malalignment. This document has been electronically signed by: Lamont Serrano MD on 07/18/2025 18:21:09
--- NOTE | ~2025-07-18 | XR_ITS ---
CLINICAL HISTORY: fall, landed on shoulder 3 views right shoulder Comparison: None Findings: No fractures or dislocations. No significant arthritic change. Minimal soft tissue calcification inferior to glenoid labrum likely represents labral chondrocalcinosis. No radiopaque foreign body. Normal visualized right chest. Impression: 1. No fracture or dislocation. This document has been electronically signed by: Lamont Serrano MD on 07/18/2025 18:16:00
--- NOTE | ~2025-07-18 | CT_ITS ---
CLINICAL HISTORY: sepsis, unclear source CT Abdomen and Pelvis WO Contrast COMPARISON: CR - XR HIP RT W PEL1V - 07/18/25 17:[address] - CT ABDOMEN PELVIS W IV CON - 01/03/25 06:36 EDT FINDINGS: Detail limited by motion artifacts. Diffusely hypodense liver consistent with hepatic steatosis. Hepatomegaly. Mildly nodular liver contours, suggestive of hepatic cirrhosis. Splenomegaly. Normal kidneys. Normal adrenal glands. Normal pancreas. Cholelithiasis. No CT evidence of acute cholecystitis. No biliary dilation. Colonic diverticulosis without evidence of acute diverticulitis. No mucosal thickening. No evidence of obstruction. Status post appendectomy. Mild diffuse bladder wall thickening. Mildly enlarged prostate. No ascites. No pneumoperitoneum. No lymphadenopathy. No acute fracture. Degenerative changes in the spine and hips. No abdominal aortic aneurysm. Bilateral fat-containing inguinal hernias. IMPRESSION: Possible cystitis. Nonemergent/incidental findings above. This document has been electronically signed by: Pantera Leonard MD on 07/18/2025 23:21:44
--- NOTE | ~2025-07-18 | NM_ITS ---
EXAMINATION: NM BILIARY TRACT CLINICAL INFORMATION: Sepsis, cholelithiasis COMPARISON: CT from 2 days earlier Radioparhmaceutical: 5mCi technetium 99m labeled mebrofenin Other medications: 1.5mcg CCK infused IV over 30 minutes , one hour post injection of mebrofenin (a.k.a. Choletec) TECHNIQUE: Hepatobiliary scintigraphy was performed after the intravenous administration of technetium 99m labeled Choletec. Imaging was performed every 2 minutes for 60 minutes after which, CCK was infused IV over 30 minutes with imaging continuing for an additional 30minutes. Ejection fraction curve was generated with a region of interest placed over the gallbladder. FINDINGS: After Choletech injection, there is prompt uptake of radiotracer by the liver. Intrahepatic biliary filling was visible within 8 minutes and gallbladder filling was visible within 10minutes. Small bowel filling was noted within 8 minutes after CCK injection. After CCK infusion, ejection fraction measured 23%. NM/NM hepatobiliary w pharm IMPRESSION: Gallbladder Ejection fraction was decreased at 23%. This can be related to biliary dyskinesia, chronic cholecystitis, sphincter of Oddi dysfunction, as well as other etiologies. Electronically signed by: Nils Hill MD 07/20/2025 03:02 PM L[facility]LIE
--- NOTE | ~2025-07-18 | XR_ITS ---
CLINICAL HISTORY: cough, weakness 2 view chest x-ray. Comparison: 06/21/2024 Findings: No consolidation or effusion. Cardiac and mediastinal contours are stable. Bones unremarkable. Impression: 1. No acute pulmonary disease. This document has been electronically signed by: Lamont Serrano MD on 07/18/2025 18:20:14
--- NOTE | ~2025-07-18 | CT_ITS ---
CLINICAL HISTORY: fall, does not know if he hit head CT head without contrast Comparison: 04/07/2025 Findings: Exam is somewhat degraded by motion artifact. No intracranial mass, midline shift, hydrocephalus, or acute hemorrhage. No CT evidence of acute ischemia. Similar-appearing sequela of chronic microangiopathic white matter ischemic disease. Visualized paranasal sinuses and mastoid air cells normal. Orbits unremarkable. No skull fracture Impression: 1. No acute intracranial abnormalities. This document has been electronically signed by: Lamont Serrano MD on 07/18/2025 19:04:37
--- NOTE | ~2025-07-18 | XR_ITS ---
CLINICAL HISTORY: fall, landed on R hip with pain 2 views right hip with AP pelvis Comparison: None Findings: No fractures or dislocations. No significant hip arthritic change. Lower lumbar degenerative changes are present. No radiopaque foreign body. Impression: 1. No fracture or dislocation. This document has been electronically signed by: Lamont Serrano MD on 07/18/2025 18:14:42
[2025-07-18 14:06] VITALS: BP 130/76; BP 152/95; PULSE 116; PULSE 125; RESP 16; TEMP 36.8; O2SAT 97; BMI 23.7
[2025-07-18 14:12] VITALS: BP 152/95; PULSE 116; RESP 16; TEMP 36.8; O2SAT 97
--- OUTSIDE RECORDS SUMMARY | 2025-07-18 14:21 | XMS_ITS | Encounter Summary ---
Author Organization [facility] Address [address] [place] [address] Care Team Providers Care It Business Process Architect Name Role Phone Bailey Ingram MD Primary Care Provider [phone] Encounter Details Date Type Department Care Team (Late st Contact Info) Description 04/23/2025 Lab Requisition [facility] - Main Lab [address] [facility] [place] [place] [address] Otilia Granado MD [address] [place] [address] Methicillin resistant Staphylococcus aureus infection, unspecified site [...] Procedure Name Priority Date/Time Associated Diagnosis Comments CULTURE WOUND WITH GRAM STAIN Routine 04/23/2025 12:00 AM EDT Methicillin resistant Staphylococcus aureus infection, unspecified site documented in this encounter Results * (ABNORMAL) Culture wound with gram stain (04/23/2025 12:00 AM EDT) Culture, Wound From Enrichment Broth Escherichia coli(A) ORALIA 04/26/2025 11:20 AM EDT [facility] ([facility]) [facility] Comment: The organism value for this result has been updated. These results have been appended to the previously preliminary verified report. This is an edited result. Previous organism was Gram negative bacilli on 04/25/2025 at 1152 EDT. Gram Stain Result No polymorphonuclear leukocytes, No epithelial cells, and No organisms noted 04/26/2025 11:20 AM EDT [facility] Swab Topography unknown / Unknown 04/23/2025 04/23/2025 7:33 PM EDT Narrative [facility] - 04/26/2025 11:20 AM EDT Sparse, mixed normal skin joan present Organism Antibiotic Method Susceptibility Escherichia coli Amoxicillin/Clavulanate ORALIA 8 ug/ml: Susceptible Escherichia coli Ampicillin/Sulbactam ORALIA 4 ug/ml: Susceptible Escherichia coli Piperacillin/Tazobactam ORALIA <=4 ug/ml: Susceptible Escherichia coli Cefazolin (Other) ORALIA 2 ug/ml: Susceptible Escherichia coli Cefoxitin ORALIA <=4 ug/ml: Susceptible Escherichia coli Ceftazidime ORALIA <=0.5 ug/ml: Susceptible Escherichia coli Ceftriaxone ORALIA <=0.25 ug/ml: Susceptible Escherichia coli Cefepime ORALIA <=0.12 ug/ml: Susceptible Escherichia coli Meropenem ORALIA <=0.25 ug/ml: Susceptible Escherichia coli Amikacin ORALIA 4 ug/ml: Susceptible Escherichia coli Gentamicin ORALIA <=1 ug/ml: Susceptible Escherichia coli Ciprofloxacin ORALIA <=0.06 ug/ml: Susceptible Escherichia coli Levofloxacin ORALIA <=0.12 ug/ml: Susceptible Escherichia coli Trimethoprim/Sulfamethoxazole ORALIA >=320 ug/ml: Resistant us Otilia Granado MD LAB MICROBIOLOGY - GENERA L ORDERABLES Final Result [facility] [address] [place] [address], documented in this encounter Visit Diagnoses Diagnosis Methicillin resistant Staphylococcus aureus infection, unspecified site documented in this encounter Care Teams It Business Process Architect Relationship Specialty Start Date End Date Bailey Ingram MD [address] [place] [phone] PCP - General Family Medicine 11/13/24 documented as of this encounter
--- OUTSIDE RECORDS SUMMARY | 2025-07-18 14:21 | XMS_ITS | Clinical Summary ---
Author Organization [address] [facility] Address [address] [place] [address] Phone Care Team Providers Care Marketing Mgr Name Role Phone Bailey Ingram MD Primary Care Provider [phone] Encounters Date Type Department Care Team Description 04/23/[address] [facility] - Main Lab [address] [facility] [employer] [place] [address] Otilia Granado MD Methicillin resistant Staphylococcus aureus infection, unspecified site from Last 3 Months Social History Tobacco Use Types Packs/Day Years Used Date Smoking Tobacco: Never Assessed Sex and Gender Information Value Date Recorded Sex Assigned at Not on file Legal Sex Male 11:01 PM EST Gender Identity Not on file Sexual Orientation Not on file Plan of Treatment Health Maintenance Due Date Last Done Comments Colorectal Cancer Screening: Colonoscopy 1950 DTaP,Tdap,and Td Vaccines (1 - Tdap) 1970 Pneumococcal Vaccine: 50+ Ye ars (1 of 1 - PCV) 2001 Zoster Vaccines (1 of 2) 2001 Abdominal Aortic Aneurysm (A AA) Screen 08/12/2022 Cholesterol Screening (Lipid Panel) 08/12/2022 Falls Risk Assessment 08/12/2022 Hepatitis C Screening 08/12/2022 Social Influencers of Health Screening 08/12/2022 Depression Screening 09/09/2024 COVID-19 Vaccine ( - 2023-2 5 season) 2025 Influenza Vaccine (#1) 2025 RSV Immunization Adult Patie nts (1 [...] Methicillin resistant Staphylococcus aureus infection, unspecified site from Last 3 Months Results * (ABNORMAL) Culture wound with gram stain (04/23/2025 12:00 AM EDT) Culture, Wound From Enrichment Broth Escherichia coli(A) ORALIA 04/26/2025 11:20 AM EDT [facility] Comment: The organism value for this result has been updated. These results have been appended to the previously preliminary verified report. This is an edited result. Previous organism was Gram negative bacilli on 04/25/2025 at 1152 EDT. Gram Stain Result No polymorphonuclear leukocytes, No epithelial cells, and No organisms noted 04/26/2025 11:20 AM EDT [facility] Swab Topography unknown / Unknown 04/23/2025 04/23/2025 7:33 PM EDT Narrative [facility] - 04/26/2025 11:20 AM EDT [...] MICROBIOLOGY - GENERA L ORDERABLES Final Result [facility] [address] [place] [address], [place] [phone] from Last 3 Months Insurance MEDICAID - [place] [facility] Member Subscriber Plan / Payer (Ef fective 2024-Present) Name:Demetri Cruz Relation to Subscriber:Self Name:Demetri Cruz Payer ID:[id number] Group ID:[id number] Type:Not on file Address: [address] [place] [address] Care Teams Marketing Mgr Relationship Specialty Start Date End Date Bailey Ingram [facility] [place] [address] PCP - General Family Medicine 11/13/24
--- OUTSIDE RECORDS SUMMARY | 2025-07-18 14:21 | XMS_ITS | Data Portability ---
Author Organization [place] - ULISES OLVERA MD [facility], Main Office Address [address] [place] [address] Assessment Encounter Date Assessment Date Assessment LastModified by Organization Details LastModified Time 04/15/2025 04/15/2025 AUDIO. doximity ; [place] in [place]; [place] 21 min [email or web address] Not available 04/15/2025 10:09:49 Plan of Treatment Reminders Order Date Submit Date Provider Last Modified By Organization Details Last Modified Time Details Appointments [facility] IN[facility] N 2024 01:00P Eliza Chavez MD Not available Not available Not available [facility] N 2025 03:00P Eliza Chavez MD Not available Not available Not available B20 FOLLOW UP 2025 12:00P Eliza Chavez MD Not available Not available Not available [facility] N 2025 12:00P Eliza Chavez MD Not available Not available Not available B20 FOLLOW UP 2025 01:00P Eliza Chavez MD Not available Not available Not available Lab [facility] anism identifi cation, unspecif ied specimen - skin 2024 025 [email or web address] [facility], [address] , [place], [address], 04/23/2025 14:45:31 microorg anism identifi cation, unspecif ied specimen 2024 025 [email or web address] [facility], [address] , [place], [address], 02/19/2025 11:17:03 Referral None recorded . Procedures None recorded . Surgeries None recorded . Imaging None recorded . Medication Orders cabotegr avir ER 600 mg/3 mL-rilpi virine ER 900 mg/3mL IM suspensi on,ER 2024 025 [email or web address] Not available 06/28/2025 13:27:23 doxycycl ine hyclate 100 mg capsule 2024 025 [facility]- , [address] [place] [address], [place], [id number], 04/23/2025 14:31:12 hydrocor tisone 1 % topical ointment 2024 [facility]- , [address] [place] [address], [place], [id number], 04/23/2025 14:31:10 cabotegr avir ER 600 mg/3 mL-rilpi virine ER 900 mg/3mL IM suspensi on,ER 2024 025 [email or web address] Not available 04/20/2025 17:23:02 Remeron 30 mg tablet 2024 025 [facility]- , [address], [place], [id number], 04/15/2025 11:14:50 doxycycl ine monohydr ate 100 mg tablet 2024 025 [facility]- , [address] [place] [address], [place], [id number], 02/18/2025 15:18:34 mupiroci n 2 % topical ointment 2024 025 [facility]- , [address], [place], [id number], 02/18/2025 15:45:31 Hibiclen s 4 % topical liquid 2024 025 [facility] , [address], [place], [id number], 02/18/2025 15:45:31 cabotegr avir ER 600 mg/3 mL-rilpi virine ER 900 mg/3mL IM suspensi on,ER 2024 025 [email or web address] Not available 02/18/2025 15:41:08 Patient TargetsNo targets recorded. Patient InstructionsNo instructions recorded. Reason for Referral None Reported. Results Created Date Observation Date Name Description Value Unit Range Abnormal Flag Note LastModifiedBy Organization Detail LastModifiedTime 02/19/2002/18/2025 MRSA MOLEC ULAR STUDY .note See Note Origi nal Order ing Provi natacha: HARJEET Cleveland MARTO WADE [facility] - [address] [facility], [place], [place] [id number] Not Available [facility] [address] [place], [address], 02/18/2025 20:18:03 02/19/20 25 02/18/2025 MRSA MOLEC ULAR STUDY MRSA screen PCR Not Detect ed not detect ed Not Available [facility] [address] [place], [address], 02/18/2025 20:18:03 04/23/20 25 04/23/2025 CULTU RE WOUND WITH GRAM STAIN .note See Note Origi nal Order ing Provi natacha: HARJEET BROOKSO WADE [facility] - [address] [facility], [place] [address], [place] [id number] Not Available [facility] [address] [place], [address], 04/23/2025 22:39:59 04/23/20 25 04/23/2025 CULTU RE WOUND WITH GRAM STAIN gram stain result No polymo rphonu clear leukoc ytes, No epithe lial cells, and No organi sms noted Not Available [facility] [address] [place], [address], 04/23/2025 22:39:59 04/23/2004/23/2025 CULTU RE WOUND WITH GRAM STAIN .note See Note Origi nal Order ing Provi natacha: HARJEET Cleveland MARTO WADE [facility] - [address] [facility] [place], [facility] [place] [id number] Not Available [facility] [address] [place] [address], [address], 04/24/2025 12:57:01 04/23/20 25 04/23/2025 CULTU RE WOUND WITH GRAM STAIN culture, wound Cultur e too young to interp ret Not Available [facility] [address] [place] [address], [address], 04/24/2025 12:57:01 04/23/20 25 04/23/2025 CULTU RE WOUND WITH GRAM STAIN gram stain result No polymo rphonu clear leukoc ytes, No epithe lial cells, and No organi sms noted Not Available [facility] [address] [place] [address], [address], 04/24/2025 12:57:01 04/23/20 25 04/23/2025 CULTU RE WOUND WITH GRAM STAIN .note See Note Origi nal Order ing Provi natacha: HARJEET Cleveland MARTO WADE [facility] - [address] [facility] d, [facility] [place] [id number] Not Available [facility] [address] [place] [address], [address], 04/25/2025 11:53:10 04/23/20 25 04/23/2025 CULTU RE WOUND WITH GRAM STAIN culture, wound GRAM NEGATI VE BACILL I abnormal From Enric hment Broth Gram negat yves bacil li The organ ism value for this resul t has been updat ed. These resul ts have been appen ded to the previ ously preli minar y verif ied repor t. Not Available [facility] [address] [place] [address], [address], 04/25/2025 11:53:10 04/23/20 25 04/23/2025 CULTU RE WOUND WITH GRAM STAIN gram stain result No polymo rphonu clear leukoc ytes, No epithe lial cells, and No organi sms noted Not Available [facility] [address] [place], [address], 04/25/2025 11:53:10 04/23/20 25 04/23/2025 CULTU RE WOUND WITH GRAM STAIN .note See Note Origi nal Order ing Provi natacha: HARJEET IA T MARTO WADE [facility] - [address] [facility], [place], [place] [address] Not Available [facility] [address] [place], [address], 04/26/2025 11:21:37 04/23/20 25 04/23/2025 CULTU RE WOUND WITH GRAM STAIN culture, wound ESCHER ICHIA COLI abnormal From Enric hment Broth Esche ashley a coli The organ ism value for this resul t has been updat ed. These resul ts have been appen ded to the previ ously preli minar y verif ied repor t. This is an edite d resul t. Previ ous organ ism was Gram negat yves bell on 2024 at 1152 EDT. Not Available [facility] [address] [place], [address], 04/26/2025 11:21:37 04/23/20 25 04/23/2025 CULTU RE WOUND WITH GRAM STAIN gram stain result No polymo rphonu clear leukoc ytes, No epithe lial cells, and No organi sms noted Not Available [facility] [address] [place], [address], 04/26/2025 11:21:37 04/23/20 25 04/23/2025 CULTU RE WOUND WITH GRAM STAIN report Ya ptibi lity Repor t Speci men Sourc e: Swab Colle cted: Apr 23, 2025 00:00 :00 ----- ----- ----- ----- ----- ----- ----- ----- ----- ----- ----- ----- ----- ----- ----- ----- Organ ism: ESCHE ASHLEY A COLI Antib iotic s ORALIA Inter preta tion ----- ----- ----- ----- ----- ----- ----- ----- ----- ----- ----- ----- ----- ----- ----- ----- Amoxi cilli n+Cla v Islt ORALIA 8 S Ampic illin +Sulb ac Islt ORALIA 4 S Pip+T azo Islt ORALIA 4 S ceFAZ jesus Susc Islt 2 S cefOX itin Islt ORALIA 4 S cefTA Zidim e Islt ORALIA 0.5 S cefTR IAXon e Islt ORALIA 0.25 S Cefep israel Islt ORALIA 0.12 S Merop enem Islt ORALIA 0.25 S Amika lilly Islt ORALIA 4 S Genta micin Islt ORALIA 1 S Cipro floxa lilly Islt ORALIA 0.06 S levoF LOXac in Islt ORALIA 0.12 S TMP SMX Islt ORALIA 320 R Not Available [facility] [address] [place], [address], 04/26/2025 11:21:37 Result Notes None recorded. Problems Name Problem SNOMED Code Status Onset Date Resolution Date Notes Provider Name and Address Organization Details Recorded Time Chronic renal impairmen t Active 2012 Chronic kidney disease, unspecifie d; snomeddesc ription: Chronic renal impairment ; Report Immunity to Registry: Yes; Notes: GFR=40 2012; 53 2013; 2017; 2019; eGFR 282020; eGFR=48 2021; 2022; Chronic renal impairment ; snomeddesc ription: Chronic renal impairment ; Report Immunity to Registry: Yes; Notes: GFR=40 2012; 2017 41 2019; eGFR 2832 2020; eGFR=48 2021; 2022; Not Available [facility] 4 06:58:26 Mixed hyperlipi demia 358738480 Active 2013 Mixed hyperlipid emia; snomeddesc ription: Mixed hyperlipid emia; Report Immunity to Registry: Yes; Not Available [facility] 4 06:58:24 Testicula r hypofunct ion 360268045 Active 2013 Other testicular hypofuncti on; snomeddesc ription: Male hypogonadi sm; Report Immunity to Registry: Yes; Not Available [facility] 4 06:58:24 Idiopathi c periphera l neuropath y 40739736 Active 2013 Unspecifie d idiopathic peripheral neuropathy ; snomeddesc ription: Peripheral nerve disease; Report Immunity to Registry: Yes; Not Available [facility] 4 06:58:24 Periphera l nerve disease 241478393 Active 2013 Peripheral nerve disease; snomeddesc ription: Peripheral nerve disease; Report Immunity to Registry: Yes; Not Available [facility] 4 06:58:25 Lichen simplex chronicus 66133492 Active 2013 Lichen simplex chronicus; snomeddesc ription: Lichen simplex chronicus; Report Immunity to Registry: Yes; Not Available [facility] 4 06:58:25 Lichenifi cation and lichen simplex chronicus Active 2013 Lichenific ation and lichen simplex chronicus; snomeddesc ription: Lichen simplex chronicus; Report Immunity to Registry: Yes; Not Available [facility] 4 06:58:25 Skin lesion 59491919 Active 2013 Skin lesion; snomeddesc ription: Skin lesion; Report Immunity to Registry: Yes; Not Available [facility] 4 06:58:25 Male hypogonad ism 94023652 Active 2013 Male hypogonadi sm; snomeddesc ription: Male hypogonadi sm; Report Immunity to Registry: Yes; Not Available [facility] 4 06:58:26 Lipodystr ophy 83523083 Active 2013 Lipodystro phy; snomeddesc ription: Lipodystro phy; Report Immunity to Registry: Yes; Not Available [facility] 4 06:58:26 Disorder of skin and/or subcutane ous tissue 50878089 Active 2013 Unspecifie d disorder of skin and subcutaneo us tissue; snomeddesc ription: Skin lesion; Report Immunity to Registry: Yes; Not Available [facility] 4 06:58:26 Human immunodef iciency virus infection 67000314 Active 2014 Human immunodefi ciency virus [HIV] disease; snomeddesc ription: Human immunodefi ciency virus infection; Report Immunity to Registry: Yes; Notes: [id number] neg 2007; Human immunodefi ciency virus infection; snomeddesc ription: Human immunodefi ciency virus infection; Report Immunity to Registry: Yes; Notes: [id number] neg 2007; Not Available [facility] 4 06:58:25 Diverticu lar disease 120625502 Active 2014 Diverticul ar disease; snomeddesc ription: Diverticul ar disease; Report Immunity to Registry: Yes; Not Available [facility] 4 06:58:25 Diverticu lar disease of colon 859112798 Active 2014 Diverticul osis of colon (without mention of hemorrhage ); snomeddesc ription: Diverticul ar disease; Report Immunity to Registry: Yes; Not Available [facility] 4 06:58:26 Type B viral hepatitis 70067301 Active 2017 Type B viral hepatitis; snomeddesc ription: Type B viral hepatitis; Report Immunity to Registry: Yes; Notes: HBV Core ab pos; s ag neg; s ab pos; Not Available [facility] 4 06:58:24 Viral hepatitis B without hepatic coma 823268232 Active 2017 Unspecifie d viral hepatitis B without hepatic coma; snomeddesc ription: Type B viral hepatitis; Report Immunity to Registry: Yes; Notes: HBV Core ab pos; s ag neg; s ab pos; Not Available [facility] 4 06:58:25 Diarrhea 71315646 Active 2018 Diarrhea; snomeddesc ription: Diarrhea; Report Immunity to Registry: Yes; Diarrhea, unspecifie d; snomeddesc ription: Diarrhea; Report Immunity to Registry: Yes; Not Available [facility] 4 06:58:25 Anogenita l herpesvir al infection 326182548 Active 2019 Anogenital herpesvira l infection, unspecifie d; snomeddesc ription: Genital herpes simplex; Report Immunity to Registry: Yes; Notes: HSV 1 serology neg; HSV 2 pos serology; Not Available [facility] 4 06:58:25 Genital herpes simplex 50700669 Active 2019 Genital herpes simplex; snomeddesc ription: Genital herpes simplex; Report Immunity to Registry: Yes; Notes: HSV 1 serology neg; HSV 2 pos serology; Not Available [facility] 4 06:58:26 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 Medical Equipment None Reported. Allergies No known drug allergies Medications Name Sig Start Date Stop Date Status Note LastModified by Organization Details LastModified Time multivita min tablet Multiple Vitamins Quantity : 30; 3 refill(s ) 11/29 completed Frequenc y: qd; VACCINE_ IND: no; SU_FULL_ NAME: Ulises chaudhary; Not Available Not Available Not Available [...] : 30; VACCINE_ IND: no; SU_FULL_ NAME: Ulises Brooksluis chaudhary; Not Available Not Available Not Available gabapenti n 600 mg tablet 600 mg Quantity : 90; 3 refill(s ) 07/09 completed Frequenc y: tid; VACCINE_ IND: no; SU_FULL_ NAME: Ulises Monet jet; Not Available Not Available Not Available doxycycli ne hyclate 100 mg capsule 100 mg capsule twice daily for 10 days 2024 active Not Available Not Available Not Avai lable donepezil 5 mg tablet 5 mg tablet; Quantity : 90; Duration : 90; 0 refill(s ) 04/18 completed Duration : 90; VACCINE_ IND: no; Not Available Not Available Not Available clonidine 0.1 mg/24 hr weekly transderm al patch 0.1 mg/24 hr Quantity : ; 0 refill(s ) 11/29 completed VACCINE_ IND: no; Not Available Not Available Not Available Remeron 30 mg tablet Take 1 tablet every day by oral route for 30 days, for insomnia ; anxiety; . 2024 active Not Available Not Available Not Avai lable sildenafi l 50 mg tablet TAKE 1 [...] : 30; VACCINE_ IND: no; SU_FULL_ NAME: Ulises Brooksluis chaudhary; Not Available Not Available Not Available hydrocodo ne 5 mg-acetam inophen 325 mg tablet TAKE 1 TABLET BY MOUTH EVERY 4 HOURS NEEDED FOR PAIN active Not Available Not Available No t Available hydrocort isone 1 % topical ointment APPLY A THIN LAYER TO THE AFFECTED AREA(S) BY TOPICAL ROUTE 2 TIMES PER DAY 2024 active Not Available Not Available Not Avai lable Lopressor 5 mg/5 mL intraveno us solution [...] y: qd; VACCINE_ IND: no; SU_FULL_ NAME: Ulises Monet jet; Not Available Not Available Not Available Tubersol [...] : 30; VACCINE_ IND: no; SU_FULL_ NAME: Ulises Monet jet; Not Available Not Available Not [...] : 30; VACCINE_ IND: no; SU_FULL_ NAME: Ulises chaudhary; Not Available Not Available Not Available [...] : 30; VACCINE_ IND: no; SU_FULL_ NAME: Ulises chaudhary; Not Available Not Available Not Available [...] : 30; VACCINE_ IND: no; SU_FULL_ NAME: Ulises chaudhary; Not Available Not Available Not Available finasteri [...] y: x1; VACCINE_ IND: no; SU_FULL_ NAME: Ulises chaudhary; Not Available Not Available Not Available Testim 50 mg/5 gram (1 %) transderm al gel 50 mg/5 g Quantity : 30; 0 refill(s ) 07/09 completed Frequenc y: qd; VACCINE_ IND: no; SU_FULL_ NAME: Ulises chaudhary; Not Available Not Available Not Available Novolog [...] : 30; VACCINE_ IND: no; SU_FULL_ NAME: Ulises chaudhary; Not Available Not Available Not Available [...] : 30; VACCINE_ IND: no; SU_FULL_ NAME: Ulises Monet jet; Not Available Not Available Not Available Cymbalta [...] : 30; VACCINE_ IND: no; SU_FULL_ NAME: Ulises Brooksluis chaudhary; Not Available Not Available Not Available [place] 3 Quantity : ; 0 refill(s ) [...] y: qd; VACCINE_ IND: no; SU_FULL_ NAME: Ulises Brooksluis chaudhary; Not Available Not Available Not Available [...] Not Available Not Available Not Available Flulaval [id number] 45 mcg (15 mcg x 3)/0.5 mL intramusc ular suspensio n - Quantity : ; Duration : 30; 0 refill(s ) 08/12 completed Duration : 30; VACCINE_ IND: yes; VACCINE_ NAME: Influenz a, seasonal , injectab le; SU_FULL_ NAME: Ulises Dias; VIS_DATE : 04:00:00 .0; Not Available Not Available Not Available Prevnar 13 (PF) 0.5 mL intramusc ular syringe - Quantity : ; 0 refill(s ) 08/30 completed VACCINE_ IND: yes; VACCINE_ NAME: Pneumoco ccal conjugat e PCV 13; SU_FULL_ NAME: Ulises chaudhary; Not Available Not Available Not Available [...] a, seasonal , injectab le; SU_FULL_ NAME: Leana Sigalamingmarlena cabral; Not Available Not Available Not Available Tresiba [...] a, seasonal , injectab le; SU_FULL_ NAME: Ulises chaudhary; Not Available Not Available Not Available Afluria 45 mcg (15 mcg x 3)/0.5 mL intramusc ular suspensio n trivalen t Quantity : ; 0 refill(s ) 07/31 completed VACCINE_ IND: yes; VACCINE_ NAME: Influenz a, seasonal , injectab le; SU_FULL_ NAME: Ulises chaudhary; VIS_DATE : 15:35:24 .0; Not Available Not Available Not Available Shingrix (PF) 50 mcg/0.5 mL intramusc ular suspensio n, kit adjuvant ed Quantity : 1; Duration : 1; 1 refill(s ) 10/19 completed Frequenc y: x1; Duration : 1; VACCINE_ IND: no; VACCINE_ NAME: zoster recombin ant; SU_FULL_ NAME: Ulises Monet l; Not Available Not Available Not Available Afluria Quad 60 mcg (15 mcg x 4)/0.5 mL IM suspensio n quadriva lent Quantity : ; 0 refill(s ) 2017 active VACCINE_ IND: yes; VACCINE_ NAME: influenz a, injectab le, quadriva lent; SU_FULL_ NAME: Ulises chaudhary; VIS_DATE : 17:56:43 .0; Not Available [...] a, injectab le, quadriva lent; SU_FULL_ NAME: Ulises chaudhary; VIS_DATE : 20:29:39 .0; Not Available Not Available Not Available Afluria Quad 60 mcg (15 mcg x 4)/0.5 mL intramusc ular susp. quadriva lent Quantity : ; 0 refill(s ) 08/22 completed VACCINE_ IND: yes; VACCINE_ NAME: influenz a, injectab le, quadriva lent; SU_FULL_ NAME: Ulises chaudhary; VIS_DATE : 13:21:03 .0; Not Available [...] Pneumoco ccal conjugat e PCV20, polysacc haride [id number] conjugat e, adjuvant , PF; SU_FULL_ NAME: Ulises chaudhary; Not Available Not Available Not Available cabotegra vir Quantity : ; 0 refill(s ) 2022 active VACCINE_ IND: yes; SU_FULL_ NAME: Ulises chaudhary; VIS_DATE : 18:55:24 .0; Not Available Not Available Not Available [email or web address] ne Quantity : ; 0 refill(s ) 2022 active VACCINE_ IND: yes; SU_FULL_ NAME: Ulises chaudhary; VIS_DATE : 18:56:53 .0; Not Available Not Available Not Available FreeStyle Bri 3 Sensor device active Not Available Not Available Not Available Afluria Quad (6mo up) 60 mcg (15 mcg x 4)/0.5 mL IM susp quadriva lent Quantity : ; 0 refill(s ) 2021 active VACCINE_ IND: yes; VACCINE_ NAME: influenz a, injectab le, quadriva lent; SU_FULL_ NAME: Ulises chaudhary; VIS_DATE : 19:39:22 .0; Not Available Not Available Not Available FreeStyle Bri 3 [place] active Not Available Not Available Not Available Vitals Date Recorded Body height Heart rate Body temperature Body mass index (BMI) Body weight Systolic And Diastolic Provider Name and Address Organization Details Last Updated DateTime 5 175.26 cm 95 /min 97.6 [degF] 24.5 kg/m2 46426.3 3 g 124/78 mm[Hg] Tripp HWITE 5 15:12:47 Date Recorded Body height Heart rate Body temperature Body mass index (BMI) Body weight Systolic And Diastolic Provider Name and Address Organization Details Last Updated DateTime 5 175.26 cm 102 /min 97.9 [degF] 25.5 kg/m2 40646.4 8 g 155/77 mm[Hg] Juanita CHAVEZ MD [facility] 14:08:36 Social History Question Answer Notes LastModified by Organizat ion Details LastModified Time Are You Blind Or Do You Have Difficulty Seeing? No [email or web address] Information n ot available 05/27/2023 Are You Deaf Or Do You Have Serious Difficulty Hearing? No [email or web address] Information not available 05/27/2023 Which Of Your Hands Is Dominant? Right [email or web address] Information n ot available 05/27/2023 What Is Your Relationship Status? Information not available 05/27/2023 Do You Use Your Seat Belt Or Car Seat Routinely? Yes [email or web address] Information not available 05/27/2023 Do You Have Difficulty Walking Or Climbing Stairs? No [email or web address] Information not available 05/27/2023 Sex: Male Functional Status Question Answer Note LastModified by Organizat ion Details LastModified Time Do you have transportation difficulties? No [email or web address] Information not available 05/27/2023 Are you able to walk independently without assistance or assistive devices? YESWOREST [email or web address] Information not available 05/27/2023 Do you have difficulty doing errands alone? No [email or web address] Information not available 05/27/2023 Are you able to care for yourself independently? Yes [email or web address] Information not available 05/27/2023 Do you have difficulty dressing, bathing, grooming, or toileting? No [email or web address] Information not available 05/27/2023 Mental Status Question Answer Note LastModified by Organization D etails LastModified Time Do you have difficulty concentrating, remembering or making decisions? Yes [email or web address] Information no t available 05/27/2023 Family History Nothing Reported Notes:Family history unknown , Response Property: Yes; , No known relatives, Response Property: Yes; Medical History Condition Response Depression Y Heart Problems Y AIDS/HIV Y Diabetes Y Eczema Y Heart Disease Y Immunizations Vaccine Type Date Status Note Provider Nam e and Address Organization Details Recorded Time Influenza, split virus, quadrivalent, preservative 8 completed Not Available [facility] 10/30/2023 06:54:12 Influenza, split virus, quadrivalent, preservative 0 completed Not Available [facility] 10/30/2023 06:54:12 Influenza, split virus, quadrivalent, preservative 2 completed Not Available [facility] 10/30/2023 06:54:13 Past Encounters Encounter ID Performer Location Encounter Start Date Encounter Closed Date Diagnosis/Indication Diagnosis SNOMED-CT Code Diagnosis ICD10 Code Diagnosis IMO Codes Diagnosis Note [id number] Ulises Chavez MD Main Office [address] [place] [address] 05/27/2023 15:25:03 05/27/2023 16:27:26 Human immunodeficiency virus infection 72193261 B20 HIV: Continue IM 900/600 Cabenuva IM. QOM.pt is aware of new meds and clinical trial options.fl u and RSV vaccines prescribed .U=U. pt aware of PreP availabili ty. Methicilli n resistant Staphylococcus aureus infection 803657388 A49.02 MRSA: on DOxycyclin e 100mg po qd for suppressio n tx. Increase to bid x 10-14 days if active flareuup. skin hydration. topical mupirocin cream bid PRN for active infection. hibiclens to apply as directed. ckean bed linen; hand washing plan of care discussed. [id number] Ulises Chavez MD Main Office [address] [place] [phone] 06/20/2023 15:39:00 06/20/2023 16:06:48 Human immunodeficiency virus infection 31762181 B20 HIV: Continue IM 900/600 Cabenuva IM. QOM.pt is aware of new meds and clinical trial options.fl u and RSV vaccines prescribed .U=U. pt aware of PreP availabili ty. [id number] Ulises Chavez MD Main Office [address] [place] [phone] 07/30/2023 15:46:14 07/30/2023 16:20:18 Human immunodeficiency virus infection 16097426 B20 HIV:Contin ue IM 900/600 Cabenuva IM. QOM.compli ance with visits and window visits reviewed.U =U. pt aware of PreP availabili ty.condom use for STI prevention Methicilli n resistant Staphylococcus aureus infection 310717984 A49.02 MRSA: on DOxycyclin e 100mg po qd for suppressio n tx. Increase to bid x 10-14 days if active flareup. skin hydration. topical mupirocin cream bid PRN for active infection. hibiclens to apply as directed. ckean bed linen; hand washing plan of care discussed. 1483 Ulises Chavez MD Main Office [address] [place] [address] 08/21/2023 14:07:57 08/21/2023 14:31:48 Human immunodeficiency virus infection [id number] B20 HIV:Contin ue IM 900/600 Cabenuva IM. QOM.compli ance with visits and window visits reviewed.U =U. pt aware of PreP availabili ty.condom use for STI prevention 2213 Ulises Chavez MD Main Office [address] [place] [address] 10/22/2023 15:39:39 10/22/2023 16:09:59 Human immunodeficiency virus infection 80528735 B20 HIV:Contin ue IM 900/600 Cabenuva IM. QOM.compli ance with visits and window visits reviewed.U =U. pt aware of PreP availabili ty.condom use for STI prevention Methicilli n resistant Staphylococcus aureus infection 263359936 A49.02 MRSA: on DOxycyclin e 100mg po qd for suppressio n tx. Increase to bid x 10-14 days if active flareup. skin hydration. topical mupirocin cream bid PRN for active infection. hibiclens to apply as directed. ckean bed linen; hand washing plan of care discussed. 96619 Ulises Chavez MD Main Office [address] [place] [address] 12/20/2023 15:58:53 12/23/2023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
--- OUTSIDE RECORDS SUMMARY | 2025-07-18 14:21 | XMS_ITS | Patient Health Record ---
[facility] Organization [facility] Address [address] [place] [address] Care Team Providers Care Case Investigator Name Role Phone Bailey Ingram MD Primary Care Provider Concepcion Medina Unavailable [phone] Allergies No Known Allergies Results Component Value Reference Range Notes HEMOGLOBIN A1C (GLYCOHEMOGLO BIN) Reviewed date:01/01/2025 10:57:30 AM Interpretation: Performing Lab: Notes/Report: HEMOGLOBIN A1C % (HH) 6.3 Reason For Referral No Information Medications Medication SIG (Take, Route, Frequency, Duration) Notes Start Date End Date Status buPROPion HCl ER (XL) 150 MG Oral; Duration: 28 Days Acti ve Metoprolol Succinate ER 200 MG Oral; Duration: 28 Days Acti ve Metoprolol Succinate ER 200 MG Oral; Duration: 28 Days Acti ve amLODIPine Besylate 10 MG Oral; Duration: 28 Days Acti ve Lisinopril 20 MG Oral; Duration: 28 Days Active FreeStyle Bri 3 Sensor - ; Duration: 28 Days Active Ibuprofen 800 MG Oral; Duration: 7 Days Active Metoprolol Succinate ER 200 MG Oral; Duration: 28 Days Not- Taking Amoxicillin 500 MG Oral; Duration: 7 Days Active Physical Therapy . History of fall, unsteady gait. Balance and strength training, ROM and gait training .; Duration: 30 days 03/16/2025 Active Finasteride 5 MG Oral; Duration: 28 Days Active Tresiba FlexTouch 200 UNIT/ML Subcutaneous; Duration: 45 Days Active Extra Depth Orthopedic Shoes (1 Pair) with Customized Heat Molded Multidensity Innersoles (3 Pair) as directed Dx: NIDDM/Polyneuropathy (E11.42), Hammertoe Foot Deformity (M20.41,M20.42), Preulcerative Skin Lesion(s) (L85.1 01/01/2025 Active Donepezil HCl 10 MG Oral; Duration: 28 Days Active Immunizations Vaccine Route Administration Date Status Comme [...] Problem Acquired hammer toe of right foot (8931461153767129 ) Other hammer toe(s) (acquired), right foot (M20.41) Active confirmed Problem Acquired hammer toe of left foot (0341976774643552 ) Other hammer toe(s) (acquired), left foot (M20.42) Active confirmed Problem Plantar wart (31764898) Plantar wart (B07.0) Active confirmed Problem Polyneuropathy due to type 2 diabetes mellitus (228664031) Type 2 diabetes mellitus with diabetic polyneuropathy (E11.42) Active confirmed Problem Difficulty balancing when standing (384589898) Unsteady gait (R26.81) Active confirmed Vital Signs Blood pressure diastolic 82 mm Hg 03/16/2025 Height 5ft9in in 03/16/2025 Blood pressure systolic 128 mm Hg 03/16/2025 Weight 175 lbs 03/16/2025 BMI 25.84 kg/m2 03/16/2025 Encounters Encounter Location Date Provider Diagnosis [facility] [place] [address] [place] [address] 01/01/2025 Concepcion Zakia Type 2 diabetes mellitus with diabetic polyneuropathy E11.42 ; Other hammer toe(s) (acquired), left foot M20.42 ; Plantar wart B07.0 ; Left foot pain M79.672 and Other hammer toe(s) (acquired), right foot M20.[address] [address] 03/16/2025 Concepcion Koehler Other hammer toe(s) (acquired), left foot M20.42 ; Unsteady gait R26.81 ; Type 2 diabetes mellitus with diabetic polyneuropathy E11.42 ; Plantar wart B07.0 ; Left foot pain M79.672 ; Other hammer toe(s) (acquired), right foot M20.41 and History of fall Z91.[address] [address] 11/13/2024 Concepcion Koehler [address] [address] 06/01/2025 Concepcion Koehler Assessments Encounter Date Diagnosis (ICD [...] fall (ICD-10 - Z91.81) Plan Of Treatment No Information Insurance Providers Payer Name Payer Address Payer Phone Subscriber Number Group Number Insured Name Patient Relationship to Insured Coverage Start Date Coverage End Date [facility] [employer] Claims [address] [place] [id number] Demetri Cruz Self - patient is the insured Medical (General) History Medical History History ICD Code Angina Back,Hip,and Knee pain CAD (Cholesterol) Dementia Depression Diabetic Heart disease HBP Kidney disease Liver disease Numbness HIV PVD Surgical History Surgery Date(Month/Year) Heart 2011 Hospitalization History Reason Date(Month/Year) Fell 12/01
--- OUTSIDE RECORDS SUMMARY | 2025-07-18 14:21 | XMS_ITS | Encounter Summary ---
Author Organization [facility] Address [address] [place] [address] Care Team Providers Care Dining Room Coordinator Name Role Phone Bailey Ingram MD Primary Care Provider [phone] Encounter Details Date Type Department Care Team (Late st Contact Info) Description 11/13/2024 Lab Requisition [facility] - Main Lab [address] [place] [address] Deon Pack PA [address] [place] [phone] Testicular hypofunction Social History Tobacco Use Types [...] AM EST) WBC 11.6(H) 4.8 - 10.8 K/[facility] LAB HEMETOLOGY METHOD 11/13/2024 12:38 PM EST [facility] LAB RBC 5.40 4.50 - 5.50 M/[facility] LAB HEMETOLOGY METHOD 11/13/2024 12:38 PM [facility] LAB Hemoglobin 17.1 13.5 - 17.5 g/dL LAB HEMETOLOGY METHOD 11/13/2024 12:38 PM [facility] LAB Hematocrit 50.4 42.0 - 54.0 % LAB HEMETOLOGY METHOD 11/13/2024 12:38 PM [facility] LAB MCV 92.6 79.0 - 98.0 FL LAB HEMETOLOGY METHOD 11/13/2024 12:38 PM [facility] LAB MCH 31.4 27.0 - 32.0 pcg LAB HEMETOLOGY METHOD 11/13/2024 12:38 PM [facility] LAB MCHC 33.9 32.0 - 37.0 g/dL LAB HEMETOLOGY METHOD 11/13/2024 12:38 PM [facility] LAB RDW 13.5 11.0 - 15.0 % LAB HEMETOLOGY METHOD 11/13/2024 12:38 PM [facility] LAB Platelets 176 130 - 400 K/mcL LAB HEMETOLOGY METHOD 11/13/2024 12:38 PM [facility] LAB MPV 10.0 7.0 - 11.0 FL LAB HEMETOLOGY METHOD 11/13/2024 12:38 PM [facility] LAB NRBC 0.0 <1.0 % LAB HEMETOLOGY METHOD 11/13/2024 12:38 PM [facility] LAB NRBC Absolute 0.00 <0.10 K/mcL LAB HEMETOLOGY METHOD 11/13/2024 12:38 PM [facility] LAB Blood Venous blood specimen / Unknown 11/13/2024 9:36 AM EST 11/13/2024 12:28 PM EST us Deon AMBROCIO LAB BLOOD ORDERABLES Final Res ult [facility] [address] [place] [address], documented in this encounter Visit Diagnoses Diagnosis Testicular hypofunction Other testicular hypofunction documented in this encounter Care Teams Dining Room Coordinator Relationship Specialty Start Date End Date Bailey Ingram MD [address] [place] [phone] PCP - General Family Medicine 11/13/24 documented as of this encounter
--- OUTSIDE RECORDS SUMMARY | 2025-07-18 14:21 | XMS_ITS | Clinical Summary ---
Author Organization [facility] Address [address] [place] [address] Phone Care Team Providers Care Needle Punch Machine Operator Name Role Phone Julito Don MD Primary Care Provider [phone] Medications tesamorelin (EGRIFTA) 2 mg SolR Subcutaneous [...] B [place] & B [facility] MED[facility] PART A & B [facility] MEDIC[facility] PART A & B [employer] MEDICARE PART A & B [employer] MEDICARE PART A & B [facility] MEDIC[facility] PART A & B [place] & B [facility] MEDIC[facility] PART A & B [place] Care Teams Needle Punch Machine Operator Relationship Specialty Start Date End Date Julito Don MD PCP - General 09/12/17 Additional Source Comments The information contained in this document represents components of the legal health record. It is not the complete legal health record.[facility]
--- OUTSIDE RECORDS SUMMARY | 2025-07-18 14:21 | XMS_ITS | Encounter Summary ---
Author Organization [facility] Address [address] [place] [address] Care Team Providers Care Five Roll Refiner Batch Mixer Name Role Phone Bailey Ingram MD Primary Care Provider [phone] Encounter Details Date Type Department Care Team (Late st Contact Info) Description 02/18/2025 Lab Requisition [facility] - Main Lab [address] [facility] [place] [address] Otilia Granado MD [address] [place] [address] Methicillin resistant Staphylococcus aureus infection, unspecified site [...] LAB MICROBIOLOGY METHOD 02/18/2025 8:16 PM EDT [facility] LAB Swab Both anterior nares / Unknown 02/18/2025 02/18/2025 6:30 PM EDT us Otilia Granado MD LAB MICROBIOLOGY - GENERA L ORDERABLES Final Result [facility] [place] [facility] H[facility] LAB [address] [place] [address], documented in this encounter Visit Diagnoses Diagnosis Methicillin resistant Staphylococcus aureus infection, unspecified site documented in this encounter Care Teams Five Roll Refiner Batch Mixer Relationship Specialty Start Date End Date Bailey Ingram MD [address] [place] [phone] PCP - General Family Medicine 11/13/24 documented as of this encounter
--- NOTE | 2025-07-18 16:11 | ED.FALL ---
HPI - Fall General Chief Complaint: Fall Stated Complaint: MECHANICAL FALL Time Seen by Provider: 07/18/25 14:53 Source: patient, EMS, RN notes reviewed and old records reviewed Mode of arrival: EMS Limitations: no limitations History of Present Illness ED Provider: DANYA Salazar HPI Narrative: 74-year-old male with medical history of GERD, T2DM, KINGSLEY, polycythemia, HTN, HLD, dementia, CKD stage 3, CAD, BPH, diverticulitis, HIV, presents to the ED after experiencing a fall. Patient states he was sitting on the couch when he needed to urinate, and attempted to get up very fast as he has an overactive bladder and did not want to urinate on himself causing him to fall onto the ground. Patient reports everything happened so fast and does not know if he hit his head but denies LOC, not on blood thinners Patient states he was unable to get off the ground due to weakness in his shoulders and legs and was on the ground for approximately an hour and 30 minutes until he called his ex- who called the ambulance for him. Patient states he had a hard time getting off the ground due to baseline weakness of bilateral shoulders, and increased sciatic pain over the last 6 weeks. Patient reports that he has seen his primary care doctor, and has had physical therapy come to his house due to sciatic pain. Patient denies drugs/alcohol use, chest pain, shortness of breath, difficulty breathing, nausea, vomiting, abdominal pain, headache, visual changes Related Data Home Medications ?Medication ?Instructions ?Recorded ?Confirmed amlodipine 10 mg tablet 1 tab PO DAILY 01/17/21 07/22/24 bupropion HCl 150 mg 24 hr tablet, 1 tab PO DAILY 01/17/21 07/22/24 extended release dulaglutide 1.5 mg/0.5 mL 1 mg subcut QWEEK 01/17/21 07/23/24 subcutaneous pen injector (Trulicity) insulin degludec 200 unit/mL (3 35 unit subcut QPM 01/17/21 07/22/24 mL) subcutaneous pen (Tresiba FlexTouch U-200 insulin) lisinopril 40 mg tablet 1 tab PO DAILY 01/17/21 07/22/24 metoprolol succinate 100 mg 1 tab PO DAILY 01/17/21 07/22/24 tablet,extended release 24 hr pen needle, diabetic 32 gauge x 01/17/21 01/17/21 5/32 (BD Colette 2nd Gen Pen Needle) rosuvastatin 40 mg tablet 1 tab PO DAILY 01/17/21 07/22/24 tamsulosin 0.4 mg capsule 1 cap PO DAILY 01/17/21 07/22/24 testosterone 75 mg implant pellet mg implant .[id number] 01/17/21 (Testopel) aspirin 81 mg tablet,delayed 81 mg PO DAILY 07/21/24 07/22/24 release cabotegravir ER 600 mg/3 3 ml IM .[id number] 07/21/24 07/22/24 mL-rilpivirine ER 900 mg/3mL IM suspension,ER (Cabenuva) donepezil 10 mg tablet 10 mg PO BEDTIME 07/21/24 07/22/24 finasteride 5 mg tablet 5 mg PO DAILY 07/21/24 07/22/24 mirabegron 50 mg tablet,extended 50 mg PO DAILY 07/21/24 07/22/24 release 24 hr (Myrbetriq) pantoprazole 20 mg tablet,delayed 20 mg PO DAILY 07/21/24 07/22/24 release doxycycline hyclate 100 mg tablet 100 mg PO DAILY 07/22/24 07/22/24 Previous Rx's ?Medication ?Instructions ?Recorded doxycycline hyclate 100 mg capsule 100 mg PO BID 7 days #14 caps 01/12/21 chlorpromazine 25 mg tablet 25 mg PO Q6H PRN hiccups #6 tabs 01/17/21 ondansetron 4 mg disintegrating 4 mg PO Q6H PRN nausea and 01/03/25 tablet vomiting #10 tabs Allergies Allergy/AdvReac Type Severity Reaction Status Date / Time No Known Allergies Allergy Mild NOT Verified 07/18/25 14:08 APPLICABLE Review of Systems Review of Systems: Yes all other systems are reviewed and are negative PMFSH Past Medical History Attestation statement: The following information was validated with the patient. 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 Polycythemia KINGSLEY (obstructive sleep apnea) Insulin long-term use HTN (hypertension) Hypersomnolence disorder Hyperlipidemia External hemorrhoids Hx of myocardial infarction Depression Dementia CKD (chronic kidney disease) stage 3, GFR 30-59 ml/min CAD (coronary artery disease) BPH (benign prostatic hyperplasia) Androgen deficiency History of diverticulitis Testosterone deficiency (~2006) Appendicitis Myocardial infarct Coma Low testosterone Diabetes HIV (human immunodeficiency virus infection) Surgical History Hx of appendectomy Hx of cardiac cath (2008) History of esophagogastroduodenoscopy (EGD) (09/10/14) Hx of colonoscopy (2018) Hx of CABG (10/10/21) Social History Social History Are you a primary daycare teacher to a significant other at home: No Do you presently have visiting nurse or other home services: Yes ([facility] 3 x week meds, VS) Alcohol intake: current Alcohol intake frequency: does not drink Patient Tobacco Use Status: Former Tobacco user Tobacco use type: Cigarette Smoked in Last 30 Days: No Second Hand Smoke Exposure: Yes Use of substances other than those prescribed or required for medical reasons: No Advance Directives: Yes Advance Directives on File: Yes Advance Directives Date on File: 06/17/24 Do you have a plan to hurt others: No Plan Physical Exam Vital Signs: Vital Signs: Last Vital Signs Temp 98.2 F 07/18/25 18:17 Pulse 87 07/18/25 22:11 Resp 16 07/18/25 20:43 BP 147/80 H 07/18/25 22:11 Pulse Ox 96 07/18/25 22:11 O2 Del Method Room Air 07/18/25 22:11 BMI result Body Mass Index 23.7 GENERAL APPEARANCE: ?AxOX4, nontoxic appearing, no acute distress. HEENT: ?NC, AT. MMM. EOMI, clear conjunctiva, oropharynx clear. NECK: ?Supple without lymphadenopathy.? No stiffness or restricted ROM. No cervical spine tenderness HEART:? Normal rate and regular rhythm, normal S1/S2, no m/r/g LUNGS:? CTAB, moving air well. No crackles or wheezes are heard. ABDOMEN: ?Soft, nontender, nondistended with good bowel sounds heard. BACK: No CVAT, no obvious deformity. Patient has start of skin breakdown over B/L buttocks and sacral region. EXTREMITIES: ?Without cyanosis, clubbing or edema. TTP of R sided SI joint and hip, no overlying skin changes, TTP of R posterior shoulder, restricted ROM as he has history of rotator cuff impingement syndrome of the shoulder, this is his baseline NEUROLOGICAL: ?Grossly nonfocal. Alert and oriented, moving all 4 extremities. Skin: ?Warm and dry without any rash. Medications Administered Discontinued Medications Generic Name Dose Route Start Last Admin Trade Name Freq PRN Reason Stop Dose Admin Acetaminophen 975 mg 07/18/25 17:54 07/18/25 18:39 Acetaminophen 325 Mg Tablet PO 07/18/25 17:55 975 mg ONCE ONE Administration Al Hydroxide/Mg Hydroxide 15 ml 07/18/25 17:54 07/18/25 18:39 Magnesium Hydrox/Alum Hydrox 30 Ml Oral.Susp PO 07/18/25 17:55 15 ml ONCE ONE Administration Lactated Ringer's 1,000 mls @ 999 mls/hr 07/18/25 17:57 07/18/25 20:20 Lr IV 07/18/25 18:57 Infused .Q1H1M ONE Infusion Ceftriaxone Sodium 2 gm/ 50 mls @ 100 mls/hr 07/18/25 20:10 07/18/25 21:10 Sodium Chloride IV 07/18/25 20:39 Infused ONCE ONE Infusion Lidocaine HCl 15 ml 07/18/25 17:54 07/18/25 18:39 Lidocaine Hcl Viscous 2 % 15 Ml Solution MUCOUS MEM 07/18/25 17:55 15 ml ONCE ONE Administration Oxycodone HCl 5 mg 07/18/25 17:54 07/18/25 18:39 Oxycodone Hcl Immed Release 5 Mg Tablet PO 07/18/25 17:55 5 mg ONCE ONE Administration Medical Decision Making Medical Decision Making MDM Narrative: 74-year-old male with medical history of GERD, T2DM, KINGSLEY, polycythemia, HTN, HLD, dementia, CKD stage 3, CAD, BPH, diverticulitis, HIV compliant with meds and states viral load is undetectable, presents to the ED after trying to get off the couch and make it to the bathroom before urinating on himself and falling to the ground on his right side patient was unable to get up and remained on the ground for 1hr 30mins due to weakness of shoulders and legs. Patient is unsure if he hit his head due to everything happening so fast, but denies loss of consciousness. Patient does think that he is becoming more weak due to bilateral shoulder weakness at baseline due to rotator cuff impingement syndrome of the right side, receives cortisone injections every 12 weeks. And 6 weeks of sciatic pain of his right side. Patient has seen his primary care doctor for sciatic pain and has had physical therapy in his house without improvement. Patient is complaining of right shoulder pain, and right hip pain after the fall. EKG reveals sinus tachycardia with a left axis deviation, and incomplete right bundle branch block without significant ST-elevation/depression, initial troponin 18.6 2nd troponin 18.2 no delta, patient without chest pain. Labs significant for leukocytosis of 21.6 with a left shift of 84.6, normocytic anemia with a hemoglobin of 13.7, and hematocrit of 39.8, thrombocytopenia with a platelet count of 154, CPK WNL at 74, elevated creatinine of 1.56 however this is around patient's baseline due to CKD stage 3, and pro BNP of 642.9 CT head/brain, CT cervical spine, chest x-ray, shoulder x-ray, hip and pelvis x-ray negative for acute findings. At 8:12 p.m. on 07/18/2025 I suspected infection, due to a leukocytosis of 21.6 and tachycardia. 2 g IV ceftriaxone started, does not meet fluid bolus criteria at this time. I signed out this patient to my colleague Dr. Bob who will resume care of the patient. We are awaiting results of UA and CT abdomen pelvis to evaluate for leukocytosis 10:24 PM 07/18/2025 (Dr. Jackie Bob, D.O.) urinalysis does not show evidence of significant infection that would be a source for his sepsis. He has no outward sign of infection. No cough, no chest pain or back pain, no abdominal pain, no vomiting or bowel changes. Low suspicion for septic joint based on exam. Obtaining a CT of the abdomen and pelvis to evaluate further. Patient will be admitted to hospitalist for further care and evaluation. Admitted in guarded condition. Differential Diagnosis Differential Diagnoses: The differential diagnosis associated with the presentation includes Dysrhythmia Electrolyte abnormality Failure to thrive Right shoulder fracture Rib fracture Admission/Observation Consideration of admission/observation: Escalation of care including admission/observation considered Lab Data 07/18/25 18:04 07/18/25 18:04 Labs: Lab Results 07/18/25 07/18/25 07/18/25 Range/Units 18:04 20:01 21:24 WBC 21.6 H (4.8-10.8) X10*3/uL RBC 4.49 L (4.60-5.80) X10*6/uL Hgb 13.7 L D (14.0-18.0) g/dl Hct 39.8 L (42.0-52.0) % MCV 88.6 (80.0-98.0) fL MCH 30.5 (27.0-33.0) pg MCHC 34.4 (31.0-36.0) g/dl RDW 14.1 (11.0-16.0) % Plt Count 154 L (160-400) X10*3/uL MPV 8.9 L (9.4-12.4) fL Immature Gran % (Auto) 0.6 H (0.0-0.4) % Neut % (Auto) 84.6 H (45-73) % Lymph % (Auto) 9.4 L (20-40) % [place] % (Auto) 5.0 (2-11) % Eos % (Auto) 0.1 (0-4) % Baso % (Auto) 0.3 (0-2) % Lymph # (Auto) 2.0 (1.2-4.9) X10*3/uL [place] # (Auto) 1.1 (0.1-1.2) X10*3/uL Eos # (Auto) 0.0 (0.0-0.4) X10*3/uL Baso # (Auto) 0.1 (0.0-0.2) X10*3/uL Abs Immat Gran (auto) 0.13 H (0.00-0.03) X10*3/uL Absolute Neuts (auto) 18.3 H (2.0-8.3) x10*3/uL Absolute Nucleated RBC 0.000 (0.0-0.012) X10*3/uL Nucleated RBC % (auto) 0.0 (0.0-0.2) /100WBC Sodium 139 (135-145) mmol/L Potassium 3.9 (3.3-5.1) mmol/L Chloride 102 (96-108) mmol/L Carbon Dioxide 28 (22-29) mmol/L Anion Gap 13 (12-20) BUN 18 H (9-16) mg/dL Creatinine 1.56 H (0.5-1.4) mg/dL Estim Creat Clear Calc 43.5 Estimated GFR 44 Random Glucose 158 H (60-115) mg/dL Lactic Acid 2.0 (0.5-2.0) mmol/L Calcium 9.7 D (8.4-10.2) mg/dL Magnesium 1.7 (1.6-2.6) mg/dL Total Bilirubin 0.9 (0.0-1.0) mg/dL AST 27 (5-37) U/L ALT 30 (0-40) U/L Alkaline Phosphatase 76 (39-117) U/L Total Creatine Kinase 74 (38-174) U/L Troponin I High Sens 18.6 D 18.2 (<3.5-35.0) ng/L NT-Pro-B Natriuret Pep 642.9 H (<300) pg/mL Total Protein 7.4 (6.5-8.0) g/dL Albumin 4.4 (3.5-5.0) g/dL Urine Color Dark Yellow Urine Appearance Clear Urine pH 5.0 (5.0-9.0) Ur Specific [place] 1.025 (1.005-1.025) Urine Protein 300 (3+) H (Neg-Trace) mg/dL Urine Glucose (UA) 100 H (Negative) mg/dL Urine Ketones Trace (Negative) mg/dL Urine Blood Negative (Negative) Urine Nitrite Negative (Negative) Ur Leukocyte Esterase Trace H (Negative) Urine RBC 0-2 (0-2) /HPF Urine WBC 0-5 (0-5) /HPF Ur Squamous Epith Cells 0-2 (0-2) /HPF Urine Bacteria None Seen (None Seen) Hyaline Casts 3-5 (0-2) /LPF Influenza Type A (PCR) NEGATIVE (Negative) Influenza Type B (PCR) NEGATIVE (Negative) RSV RNA Qual (PCR) NEGATIVE (Negative) SARS-CoV-2 RNA (RT-PCR) NEGATIVE (Negative) Independent Interpretation I performed an independent interpretation of an: EKG Interpretation: I personally interpreted the EKG which reveals sinus tachycardia with left axis deviation, incomplete right bundle branch block, without ST-elevation/depression Vent. Rate : 108 BPM Atrial Rate : 108 BPM P-R Int : 192 ms QRS Dur : 102 ms QT Int : 358 ms P-R-T Axes : 72 -76 80 degrees QTcB Int : 479 ms Sinus tachycardia Left axis deviation Incomplete right bundle branch block Nonspecific T wave abnormality Abnormal ECG When compared with ECG of 05-Apr-2025 13:01, No significant change was found External Record Review External record reviewed: Inpatient record, Office record and Outpatient record Chronic Conditions Patient?s care impacted by: Diabetes, Hypertension and Other (GERD, KINGSLEY, HLD, dementia, CKD stage 3, CAD, BPH, diverticulitis, HIV) Critical Care Time Critical Care Time Critical Care Time: Yes Total Critical Care Time: 40 Attestation: CRITICAL CARE TIME: 40 minutes of critical care time was spent in direct patient care at the bedside or in the immediate area with this patient. Critical care was necessary to treat or prevent imminent or life-threatening deterioration of the following conditions tachycardia, leukocytosis due to sepsis. This patient is high risk for decompensation and/or . This time was spent assessing and managing the patient, interpreting labs and imaging, coordinating care with other medical providers, gathering history from either the patient, their representatives, EMS or chart review, and discussing management with admitting team. Discharge Plan Discharge Clinical Impression: Unwitnessed fall, Sepsis, Decubitus ulcer of sacral region, stage 1, Muscle weakness (generalized) Patient Disposition: Admitted As Inpatient Print Language: Japanese
--- NOTE | 2025-07-18 17:00 | ECG_ITS ---
Test Reason : WEAK Blood Pressure : */* mmHG Vent. Rate : 108 BPM Atrial Rate : 108 BPM P-R Int : 192 ms QRS Dur : 102 ms QT Int : 358 ms P-R-T Axes : 72 -76 80 degrees QTcB Int : 479 ms Sinus tachycardia Left axis deviation Incomplete right bundle branch block Nonspecific T wave abnormality Abnormal ECG When compared with ECG of 05-Apr-2025 13:01, No significant change was found Referred By: Bhavin Salazar Electronically Signed By: DANIEL COOL MD
[2025-07-18 18:08] LABS: MANUAL DIFF FLAG NO
[2025-07-18 18:14] LABS: Hematocrit 39.8 % (42.0-52.0); Hemoglobin 13.7 g/dl (14.0-18.0); Imm Gran Abs Auto 0.13 X10*3/uL (0.00-0.03); Imm Gran Pct Auto 0.6 % (0.0-0.4); Lymphocytes Absolute Auto 2.0 X10*3/uL (1.2-4.9); Mean Corpuscular HGB Conc 34.4 g/dl (31.0-36.0); Mean Corpuscular Hemoglobin 30.5 pg (27.0-33.0); Mean Corpuscular Volume 88.6 fL (80.0-98.0); NRBC Abs Auto 0.000 X10*3/uL (0.0-0.012); NRBC Pct Auto 0.0 /100WBC (0.0-0.2); Platelet Count 154 X10*3/uL (160-400); Red Blood Count 4.49 X10*6/uL (4.60-5.80); White Blood Count 21.6 X10*3/uL (4.8-10.8)
[2025-07-18 18:17] VITALS: BP 152/95; PULSE 116; RESP 16; TEMP 36.8; O2SAT 97
[2025-07-18 18:35] LABS: Alanine Aminotransferase 30 U/L (0-40); Albumin Level 4.4 g/dL (3.5-5.0); Alkaline Phosphatase 76 U/L (39-117); Anion Gap 13 (12-20); Aspartate Amino Transferase 27 U/L (5-37); Blood Urea Nitrogen 18 mg/dL (9-16); Calcium 9.7 mg/dL (8.4-10.2); Carbon Dioxide 28 mmol/L (22-29); Chloride 102 mmol/L (96-108); Creatinine Clr Calc Pharmacy 43.5; Estimated Glomerular Filt Rate 44; Magnesium 1.7 mg/dL (1.6-2.6); Potassium 3.9 mmol/L (3.3-5.1); Sodium 139 mmol/L (135-145); Total Protein 7.4 g/dL (6.5-8.0)
[2025-07-18] MEDS: oxyCODONE HCl Immed Release 5 MG TABLET PO (18:39)
[2025-07-18] MEDS: Lidocaine HCl Viscous 2 % 15 ML SOLUTION MUCOUS MEM (18:39)
[2025-07-18] MEDS: Magnesium Hydrox/Alum Hydrox 30 ML ORAL.SUSP 15 ML PO (18:39)
[2025-07-18] MEDS: Lactated Ringers 1,000 ML 999 ML IV (18:40)
[2025-07-18 18:41] LABS: Troponin-I High Sensitivity 18.6 ng/L (<3.5-35.0)
[2025-07-18 19:49] LABS: NT Pro B Type Natriuretic Pept 642.9 pg/mL (<300)
[2025-07-18 20:18] VITALS: BP 124/85; PULSE 105; RESP 16; O2SAT 93
[2025-07-18 20:35] LABS: Troponin-I High Sensitivity 18.2 ng/L (<3.5-35.0)
[2025-07-18 20:43] VITALS: BP 116/86; PULSE 94; RESP 16; O2SAT 94
[2025-07-18 20:49] LABS: Resp Syncy Virus RNA Qual PCR NEGATIVE (Negative); SARS COV2 PCR INHOUSE NEGATIVE (Negative)
[2025-07-18 21:31] LABS: Appearance Urine Clear; Glucose Urine UA 100 mg/dL (Negative); PH 5.0 (5.0-9.0); Specific Gravity - Urine 1.025 (1.005-1.025); UMIC TRIGGER UACC YES
[2025-07-18 22:11] VITALS: BP 147/80; PULSE 87; O2SAT 96
--- NOTE | 2025-07-18 22:37 | PHA.PROG ---
Admission Date/Time: July 18, 2025 22:23 Indication: other Weight in k.888 kg Adjusted body weight in K.7 kg [place] body weight in K Obesity Dosing Indication % IBW: Serum Creatinine - Last 168 Hours 07/18/25 18:04 Creatinine 1.56 H Estimated CrCl and GFR - Last 168 Hours 07/18/25 18:04 Estim Creat Clear Calc 43.5 Estimated GFR 44 Vancomycin Loading Dose: 2000 mg x1 Current Vancomycin Dosing Regimen: 1000 mg q24h Vancomycin Monitoring using AUC goal of 400 - 600 range with trough as surrogate marker: predicted auc 495 Date and Time for next Vancomycin Level to be drawn: random before second dose 07/19 @210 Pharmacist Comments on Vancomycin Plan: keep an eye on renal fxn Vancomycin dosing will take advantage of [employer] as a clinical decision support tool that uses Bayesian modeling to calculate individual patient's pharmacokinetic parameters and forecast the patient's drug concentration time course with the target goal AUC 24 range of 400 - 600 mg/L/hr.
--- NOTE | 2025-07-18 22:53 | PM.IMHP ---
History of Present Illness Date of Service: 07/18/25 Attending physician on admission: Mike Burns Chief Complaint: fall Patient is 74 with a past medical history significant for HIV, GERD, T2DM, KINGSLEY, polycythemia, HTN, HLD, dementia, CKD 3, CAD, BPH and history diverticulitis, presented to the ED after falling on his right side earlier today. The patient reported that he was getting up to urinate quickly fell to the ground. At baseline he has weakness in his seen physical therapy for sciatic pain. he also reports boday aches but is unable to determine the onset. He denied any chest pain, shortness of breath or dizziness prior to the fall. Unknown if headstrike but no loss of consciousness, nausea, vomiting, shortness of breath, chest pain or change in vision. Patient does not take any anticoagulation. He reports he has been going for his HIV medication injectiosn every 2-3 weeks. He was on the ground for less than 2 hours before calling before EMS was called. Review of Systems Constitutional: Constitutional: Reports body ache(s), Denies chills, Denies fatigue, Denies fever(s) and Denies headache(s) Eyes: Eyes: Denies change in vision ENT: Denies headache(s), Denies nasal congestion, Denies nasal discharge and Denies sore throat Cardiovascular: Cardiovascular: Denies chest pain, Denies rapid heart rate, Denies leg edema, Denies lightheadedness and Denies dyspnea Respiratory: Respiratory: Denies chest congestion, Denies cough, Denies dyspnea and Denies wheezing Gastrointestinal: Gastrointestinal: Denies abdominal pain, Denies diarrhea, Denies nausea and Denies vomiting Genitourinary: Genitourinary: Denies dysuria, Denies urinary frequency and Denies urinary urgency Musculoskeletal: Musculoskeletal: Reports myalgias Integumentary/Breasts: Skin/Breast: Denies rash Neurologic: Denies confusion and Denies headache(s) Psychiatric: Psychiatric: Denies confusion Endocrine: Endocrine: Denies fatigue Hematologic/Lymphatic: Hematologic/Lymphatic: Denies easy bleeding Allergic/Immunologic: Allergic/Immunologic: Denies wheezing [facility] Medical History Shoulder pain, bilateral GERD (gastroesophageal reflux disease) OAB (overactive bladder) Memory changes Anxiety Cataracts, bilateral 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 Polycythemia KINGSLEY (obstructive sleep apnea) Insulin long-term use HTN (hypertension) Hypersomnolence disorder Hyperlipidemia External hemorrhoids Hx of myocardial infarction Depression Dementia CKD (chronic kidney disease) stage 3, GFR 30-59 ml/min CAD (coronary artery disease) BPH (benign prostatic hyperplasia) Androgen deficiency History of diverticulitis Testosterone deficiency (~2006) Appendicitis Myocardial infarct Coma Low testosterone Diabetes HIV (human immunodeficiency virus infection) Surgical History Hx of appendectomy Hx of cardiac cath (2008) History of esophagogastroduodenoscopy (EGD) (09/10/14) Hx of colonoscopy (2018) Hx of CABG (10/10/21) Social History Are you a primary youth career specialist to a significant other at home: No Do you presently have visiting nurse or other home services: Yes ([facility] 3 x week meds, VS) Alcohol intake: current Alcohol intake frequency: does not drink Patient Tobacco Use Status: Former Tobacco user Tobacco use type: Cigarette Smoked in Last 30 Days: No Second Hand Smoke Exposure: Yes Use of substances other than those prescribed or required for medical reasons: No Advance Directives: Yes Advance Directives on File: Yes Advance Directives Date on File: 06/17/24 Do you have a plan to hurt others: No Plan Narrative: no smoking, etoh or drug use Meds Allergies Allergy/AdvReac Type Severity Reaction Status Date / Time No Known Allergies Allergy Mild NOT Verified 07/18/25 14:08 APPLICABLE Active Medications: Current Medications Acetaminophen (Acetaminophen 325 Mg Tablet) 975 mg PO Q6H PRN PRN Reason: Pain, Mild 1-3,fever,headache Calcium Carbonate (Calcium Carbonate 750 Mg Tab.Chew) 750 mg PO Q4H PRN PRN Reason: Heartburn Dextrose (Dextrose 50 % 25 Gm/50 Ml Syringe) 25 gm IVPUSH Q15M PRN; Protocol PRN Reason: per Hypoglycemia Standing Ord. Glucose (Glucose Gel 15 Gm Gel..Gram.) 15 gm PO Q15M PRN; Protocol PRN Reason: per Hypoglycemia Standing Ord. Heparin Sodium (Porcine) (Heparin Sodium,Porcine 5,000 Unit/Ml Vial) 5,000 unit SUBCUT Q8H [facility] Piperacillin Sod/Tazobactam (Sod 3.375 gm/ Sodium Chloride) 50 mls @ 100 mls/hr IV Q6H [facility] Vancomycin HCl (Vancomycin/Ns) 2,000 mg in 500 mls @ 250 mls/hr IV ONCE ONE Stop: 07/19/25 00:44 Vancomycin HCl 1,000 mg/ (Sodium Chloride) 270 mls @ 270 mls/hr IV Q24H [facility] Insulin Human Lispro (Insulin Lispro 100 Unit/Ml 3 Ml Vial) 0 unit SUBCUT QIDACHS [facility]; Protocol Magnesium Hydroxide (Milk Of Magnesia 30 Ml Oral.Susp) 30 ml PO DAILY PRN PRN Reason: Constipation Melatonin (Melatonin 3 Mg Tablet) 6 mg PO BEDTIME PRN PRN Reason: Insomnia Ondansetron HCl (Ondansetron Hcl 4 Mg/2 Ml Vial) 4 mg IVPUSH Q8H PRN PRN Reason: Nausea and Vomiting Oxycodone HCl (Oxycodone Hcl Immed Release 5 Mg Tablet) 5 mg PO Q6H PRN PRN Reason: Pain, Severe (Pain Scale 7-10) Pharmacy Consult (Consult Rx Vancomycin Dosing) 1 each MISCELLANE DAILY PRN PRN Reason: Consult order Sodium Chloride (0.9 % Sodium Chloride Flush 3 Ml Syringe) 3 ml IVFLUSH QSHIFT [facility] Tramadol HCl (Tramadol Hcl 50 Mg Tablet) 50 mg PO Q6H PRN PRN Reason: Pain, Moderate(Pain Scale 4-6) Home Medications ?Medication ?Instructions ?Recorded ?Confirmed ?Last Taken ?Type amlodipine 10 mg tablet 1 tab PO DAILY 01/17/21 07/22/24 Unknown History bupropion HCl 150 mg 24 hr tablet, 1 tab PO DAILY 01/17/21 07/22/24 Unknown History extended release dulaglutide 1.5 mg/0.5 mL 1 mg subcut QWEEK 01/17/21 07/23/24 07/20/24 History subcutaneous pen injector (Trulicity) insulin degludec 200 unit/mL (3 35 unit subcut QPM 01/17/21 07/22/24 08/10/24 07:00 History mL) subcutaneous pen (Tresiba FlexTouch U-200 insulin) lisinopril 40 mg tablet 1 tab PO DAILY 01/17/21 07/22/24 Unknown History metoprolol succinate 100 mg 1 tab PO DAILY 01/17/21 07/22/24 Unknown History tablet,extended release 24 hr pen needle, diabetic 32 gauge x 01/17/21 01/17/21 Unknown History (BD Colette 2nd Gen Pen Needle) rosuvastatin 40 mg tablet 1 tab PO DAILY 01/17/21 07/22/24 Unknown History tamsulosin 0.4 mg capsule 1 cap PO DAILY 01/17/21 07/22/24 Unknown History testosterone 75 mg implant pellet mg implant .[id number] 01/17/21 Unknown History (Testopel) aspirin 81 mg tablet,delayed 81 mg PO DAILY 07/21/24 07/22/24 Unknown History release cabotegravir ER 600 mg/3 3 ml IM .[id number] 07/21/24 07/22/24 Unknown History mL-rilpivirine ER 900 mg/3mL IM suspension,ER (Cabenuva) donepezil 10 mg tablet 10 mg PO BEDTIME 07/21/24 07/22/24 Unknown History finasteride 5 mg tablet 5 mg PO DAILY 07/21/24 07/22/24 Unknown History mirabegron 50 mg tablet,extended 50 mg PO DAILY 07/21/24 07/22/24 Unknown History release 24 hr (Myrbetriq) pantoprazole 20 mg tablet,delayed 20 mg PO DAILY 07/21/24 07/22/24 Unknown History release doxycycline hyclate 100 mg tablet 100 mg PO DAILY 07/22/24 07/22/24 Unknown History Physical Exam Vital Signs and Narrative: Vital Signs: Last Vital Signs Temp 98.2 F 07/18/25 18:17 Pulse 87 07/18/25 22:11 Resp 16 07/18/25 20:43 BP 147/80 H 07/18/25 22:11 Pulse Ox 96 07/18/25 22:11 O2 Del Method Room Air 07/18/25 22:11 BMI result Body Mass Index 23.7 General: AOx3, no acute distress Resp: CTA bilaterally CVS: S1, S2, RRR GI: +BS, LLQ tenderness with palpation, no distention Skin: Warm, dry Neuro: Cranial nerves II-XII grossly intact bilaterally. Motor grossly intact bilaterally. no nuchal rigidity or photosensitivity Extremities: No pitting edema Psych: Appropriate affect Const: General: No confusion Orientation/consciousness: No confusion Neuro: General: No confusion Results Labs 07/18/25 18:04 07/18/25 18:04 Labs: Laboratory Results - last 24 hr 07/18/25 07/18/25 07/18/25 18:04 20:01 21:24 MCV 88.6 MCH 30.5 MCHC 34.4 RDW 14.1 Plt Count 154 L MPV 8.9 L Immature Gran % (Auto) 0.6 H Neut % (Auto) 84.6 H Lymph % (Auto) 9.4 L [place] % (Auto) 5.0 Eos % (Auto) 0.1 Baso % (Auto) 0.3 Lymph # (Auto) 2.0 [place] # (Auto) 1.1 Eos # (Auto) 0.0 Baso # (Auto) 0.1 Abs Immat Gran (auto) 0.13 H Absolute Neuts (auto) 18.3 H Absolute Nucleated RBC 0.000 Nucleated RBC % (auto) 0.0 Anion Gap 13 Estim Creat Clear Calc 43.5 Estimated GFR 44 Random Glucose 158 H Lactic Acid 2.0 Calcium 9.7 D Magnesium 1.7 Total Bilirubin 0.9 AST 27 ALT 30 Alkaline Phosphatase 76 Total Creatine Kinase 74 Troponin I High Sens 18.6 D 18.2 NT-Pro-B Natriuret Pep 642.9 H Total Protein 7.4 Albumin 4.4 Urine Color Dark Yellow Urine Appearance Clear Urine pH 5.0 Ur Specific [place] 1.025 Urine Protein 300 (3+) H Urine Glucose (UA) 100 H Urine Ketones Trace Urine Blood Negative Urine Nitrite Negative Ur Leukocyte Esterase Trace H Urine RBC 0-2 Urine WBC 0-5 Ur Squamous Epith Cells 0-2 Urine Bacteria None Seen Hyaline Casts 3-5 Influenza Type A (PCR) NEGATIVE Influenza Type B (PCR) NEGATIVE RSV RNA Qual (PCR) NEGATIVE SARS-CoV-2 RNA (RT-PCR) NEGATIVE Assessment and Plan (1) SIRS (systemic inflammatory response syndrome): Status: Acute (2) Muscle weakness (generalized): Status: Acute (3) Thrombocytopenia: Status: Acute Plan Patient is 74 with a past medical history significant for HIV, GERD, T2DM, KINGSLEY, polycythemia HTN, HLD, dementia, CKD 3, CAD, BPH and history diverticulitis, presented to the ED after falling on his right side earlier today. imaging has been negative for any acute fx, however, pt has been tachycardic with leukocytosis SIRS+, HIV+ - blood cultures pending - A/P CT pending - ID consult - vancomycin and zosyn prophylactically - monitor CBC and CMP HIV - on injectables, states he is UTD - check viral load thrombocytopenia - monitor platelets weakess, fall, chronic - continue outpt PT T2DM - SSI - diabetic diet - lantus HTN - continue home meds HLD - continue home meds CKD 3 - avoid nephrotoxins - monitor cr CAD - continue home meds BPH - continue home meds med rec pending full code VTE prophy: SCDs per pt request Pt SIRS + with HIV, requiring admission for at least 2 midnights stay for further evaluation and monitoring. Quality Stroke Does the patient have a stroke diagnosis?: No VTE Prior VTE?: No VTE Risk Level:: Medical - moderate - high VTE Device Contraindication: N/A - Device Ordered VTE Drug Contraindication: Treatment Not Indicated
[2025-07-19] VITALS (7 sets, daily range): BP systolic 131–167; BP diastolic 64–94; PULSE 85–100; RESP 12–18; TEMP 36.3–36.8; O2SAT 94–97; BMI 23.7
[2025-07-19] MEDS: vancomycin/NS 2,000 MG/500 ML PLAST..BAG 250 MG IV (00:15)
[2025-07-19] MEDS: 0.9 % Sodium Chloride Flush 3 ML SYRINGE IVFLUSH ×4 (00:15→20:58)
--- NOTE | 2025-07-19 03:24 | PC.NURSE ---
assumed care of pt at 2300. PT A/O, in no acute distress. PT medicated as per mar- Held heparin as pt refused d/t concerns that it will impact ability to continue receiving IM HIV medications instead of 20-40 pills. Notified provider. compression boots applied as ordered. Call gay within reach. Plan of care ongoing
[2025-07-19 03:56] LABS: MANUAL DIFF FLAG NO
[2025-07-19 03:57] LABS: Hematocrit 37.5 % (42.0-52.0); Hemoglobin 12.9 g/dl (14.0-18.0); Imm Gran Abs Auto 0.06 X10*3/uL (0.00-0.03); Imm Gran Pct Auto 0.4 % (0.0-0.4); Lymphocytes Absolute Auto 1.9 X10*3/uL (1.2-4.9); Mean Corpuscular HGB Conc 34.4 g/dl (31.0-36.0); Mean Corpuscular Hemoglobin 30.6 pg (27.0-33.0); Mean Corpuscular Volume 89.1 fL (80.0-98.0); NRBC Abs Auto 0.000 X10*3/uL (0.0-0.012); NRBC Pct Auto 0.0 /100WBC (0.0-0.2); Platelet Count 136 X10*3/uL (160-400); Red Blood Count 4.21 X10*6/uL (4.60-5.80); White Blood Count 14.4 X10*3/uL (4.8-10.8)
[2025-07-19 04:13] LABS: Alanine Aminotransferase 28 U/L (0-40); Albumin Level 3.9 g/dL (3.5-5.0); Alkaline Phosphatase 65 U/L (39-117); Anion Gap 14 (12-20); Aspartate Amino Transferase 30 U/L (5-37); Blood Urea Nitrogen 16 mg/dL (9-16); Calcium 9.2 mg/dL (8.4-10.2); Carbon Dioxide 27 mmol/L (22-29); Chloride 102 mmol/L (96-108); Creatinine Clr Calc Pharmacy 44.1; Estimated Glomerular Filt Rate 45; Potassium 3.7 mmol/L (3.3-5.1); Sodium 139 mmol/L (135-145); Total Protein 6.8 g/dL (6.5-8.0)
[2025-07-19 06:30] LABS: Glucose, Whole Blood 149 mg/dL (60-115)
[2025-07-19 08:08] LABS: Chlamydia pneumoniae PCR Not Detected (Not Detect.); Coronavirus 229E PCR Not Detected (Not Detect.); Coronavirus HKU1 PCR Not Detected (Not Detect.); Coronavirus NL63 PCR Not Detected (Not Detect.); Coronavirus OC43 PCR Not Detected (Not Detect.); RSV PCR Not Detected (Not Detect.); Rhino/Enterovirus PCR Not Detected (Not Detect.)
[2025-07-19 08:12] LABS: Influenza A H1 PCR Not Detected (Not Detect.); Influenza A H1-2009 PCR Not Detected (Not Detect.); Influenza A H3 PCR Not Detected (Not Detect.); SARS-CoV-2 PCR Not Detected (Not Detect.)
--- NOTE | 2025-07-19 09:08 | PC.NURSE ---
Pt is alert and oriented, initially in recliner and assisted BTB. Pneumatic compression devices remains on legs. Skin pwd. Denies pain. Tolerated breakfast. Awaits bed assgn
--- NOTE | 2025-07-19 10:53 | PHA.MEDREC ---
Addendum entered by [place], PharmD 07/19/25 11:50: med rec checked by [facility] Original Note: Pharmacy Consult ? Medication Reconciliation Pharmacy has completed the medication reconciliation. Patient is a poor historian. Patient receives [facility] from [facility]. patient was able to confirm Cabenuva 3 ml every 2 months last dose 3 weeks ago, Tresiba FlexTouch 35 units at bedtime, Trulicity 1.5 mg every Saturday, last dose and Testosterone 75/mg every 3 month, however last dose was over 6 months a go due to patient not having transportation. Utilized list from [facility] to confirm med list.
[2025-07-19 11:57] LABS: Glucose, Whole Blood 119 mg/dL (60-115)
[2025-07-19] MEDS: buPROPion HCl XL 150 MG TAB.ER.24H PO (12:25)
[2025-07-19] MEDS: Mirabegron 50 MG TAB.ER.24H PO (13:09)
--- NOTE | 2025-07-19 13:15 | MHC.CM.PN ---
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 Patient will benefit from a PT Eval to assist with disposition; CM has initiated and will follow for dc planning. PCP is Dr. Bailey Ingram and HCP is Son/Óscar.
--- NOTE | 2025-07-19 13:37 | MHC.CM.PN ---
[facility] PH[facility] CALL [facility] HAVE CONCERNS ABOUT PT SAFETY AT HOME PTIDS AN OPEN CASE WITH GSS/ELDER AT RISK WORKER IS EYAD XAVIER EXT 1200 PT WOULD CONSIDER STR IF RECEOMMNEDED BY PHYSICAL THERAPY DC ?STR
--- NOTE | 2025-07-19 15:24 | MHC.CLN ---
NUTRITION DIET RX: DIABETIC 2000 KCALS. SKIN WITH OPEN AREA TO BUTTOCK. ADDING ENSURE MAX BID TO PROMOTE SKIN INTEGRITY. SUPPLEMENT PROVIDES 300 KCALS, 60 G PROTEIN. PATIENT WITH HX HIV. SHOWS WEIGHT LOSS TREND X ONE YEAR -6.1%, NOT SIGNIFICANT. FOLLOW FOR PO INTAKE AND SKIN INTEGRITY. SEE CLINICAL NUTRITION ASSESSMENT 07/19/25.
[2025-07-19 16:25] LABS: Glucose, Whole Blood 176 mg/dL (60-115)
[2025-07-19 20:38] LABS: Glucose, Whole Blood 164 mg/dL (60-115)
[2025-07-19] MEDS: Insulin Glargine,Hum.rec.anlog 100 UNIT/ML 10 ML VIAL 17 UNIT SUBCUT (20:56)
[2025-07-20] VITALS (7 sets, daily range): BP systolic 101–159; BP diastolic 59–95; PULSE 73–104; RESP 16–18; TEMP 36–36.7; O2SAT 92–97
[2025-07-20] MEDS: oxyCODONE HCl Immed Release 5 MG TABLET PO (05:41)
[2025-07-20 06:03] LABS: MANUAL DIFF FLAG NO
[2025-07-20 06:11] LABS: Hematocrit 38.3 % (42.0-52.0); Hemoglobin 13.3 g/dl (14.0-18.0); Imm Gran Abs Auto 0.06 X10*3/uL (0.00-0.03); Imm Gran Pct Auto 0.6 % (0.0-0.4); Lymphocytes Absolute Auto 1.7 X10*3/uL (1.2-4.9); Mean Corpuscular HGB Conc 34.7 g/dl (31.0-36.0); Mean Corpuscular Hemoglobin 31.0 pg (27.0-33.0); Mean Corpuscular Volume 89.3 fL (80.0-98.0); NRBC Abs Auto 0.000 X10*3/uL (0.0-0.012); NRBC Pct Auto 0.0 /100WBC (0.0-0.2); Platelet Count 156 X10*3/uL (160-400); Red Blood Count 4.29 X10*6/uL (4.60-5.80); White Blood Count 10.2 X10*3/uL (4.8-10.8)
[2025-07-20 06:20] LABS: Alanine Aminotransferase 33 U/L (0-40); Albumin Level 4.0 g/dL (3.5-5.0); Alkaline Phosphatase 71 U/L (39-117); Anion Gap 16 (12-20); Aspartate Amino Transferase 36 U/L (5-37); Blood Urea Nitrogen 18 mg/dL (9-16); Calcium 9.5 mg/dL (8.4-10.2); Carbon Dioxide 23 mmol/L (22-29); Chloride 106 mmol/L (96-108); Creatinine Clr Calc Pharmacy 44.3; Estimated Glomerular Filt Rate 45; Potassium 3.6 mmol/L (3.3-5.1); Sodium 141 mmol/L (135-145); Total Protein 7.1 g/dL (6.5-8.0)
[2025-07-20 07:23] LABS: Glucose, Whole Blood 117 mg/dL (60-115)
[2025-07-20] MEDS: 0.9 % Sodium Chloride Flush 3 ML SYRINGE IVFLUSH ×3 (08:22→21:17)
[2025-07-20] MEDS: Mirabegron 50 MG TAB.ER.24H PO (08:25)
[2025-07-20] MEDS: buPROPion HCl XL 150 MG TAB.ER.24H PO (08:26)
[2025-07-20] MEDS: Metoprolol Succinate ER 100 MG TAB.ER.24H 200 MG PO (08:26)
--- NOTE | 2025-07-20 09:40 | HO.PM.IMPN ---
Subjective Subjective Date of Service: 07/20/25 Interval History: Presented with fall and found to have SIRS, with WBC 21 CT showing possible acute cholecystitis but no pain Physical Exam Vital Signs: Vital Signs: Last Vital Signs Temp 97.5 F 07/20/25 08:00 Pulse 99 07/20/25 08:00 Resp 18 07/20/25 08:00 BP 133/95 H 07/20/25 08:00 Pulse Ox 96 07/20/25 08:00 O2 Del Method Room Air 07/20/25 08:00 BMI result Body Mass Index 23.7 Const: Other: General: AO X 3, no acute distress Resp: CTA bilateral CVS: S1,S2,RRR GI: +BS, NT, no distention Skin: No rash Neuro: motor grossly intact Psych: appropriate affect Objective Data Active Medications Acetaminophen (Acetaminophen 325 Mg Tablet) 975 mg PO Q6H PRN PRN Reason: Pain, Mild 1-3,fever,headache Last Admin: 07/19/25 06:23 Dose: 975 mg Documented By: BHARGAV Amlodipine Besylate (Amlodipine Besylate 10 Mg Tablet) 10 mg PO DAILY [facility]; Protocol Last Admin: 07/20/25 08:25 Dose: 10 mg Documented By: CHICHO Atorvastatin Calcium (Atorvastatin Calcium 80 Mg Tablet) 80 mg PO DAILY [facility] Last Admin: 07/20/25 08:25 Dose: 80 mg Documented By: CHICHO Bupropion HCl (Bupropion Hcl Xl 150 Mg Tab.Er.24h) 150 mg PO DAILY [facility] Last Admin: 07/20/25 08:26 Dose: 150 mg Documented By: CHICHO Calcium Carbonate (Calcium Carbonate 750 Mg Tab.Chew) 750 mg PO Q4H PRN PRN Reason: Heartburn Dextrose (Dextrose 50 % 25 Gm/50 Ml Syringe) 25 gm IVPUSH Q15M PRN; Protocol PRN Reason: per Hypoglycemia Standing Ord. Donepezil HCl (Donepezil Hcl 10 Mg Tablet) 10 mg PO BEDTIME [facility] Last Admin: 07/19/25 20:58 Dose: 10 mg Documented By: LEFASHLEE Finasteride (Finasteride 5 Mg Tablet) 5 mg PO DAILY [facility] Last Admin: 07/20/25 08:26 Dose: 5 mg Documented By: CHICHO Glucose (Glucose Gel 15 Gm Gel..Gram.) 15 gm PO Q15M PRN; Protocol PRN Reason: per Hypoglycemia Standing Ord. Piperacillin Sod/Tazobactam (Sod 3.375 gm/ Sodium Chloride) 50 mls @ 100 mls/hr IV Q6H [facility] Last Infusion: 07/20/25 04:48 Dose: Infused Documented By: MARQUISE Vancomycin HCl 1,000 mg/ (Sodium Chloride) 270 mls @ 270 mls/hr IV Q24H [facility] Last Infusion: 07/20/25 00:26 Dose: Infused Documented By: MARQUISE Insulin Glargine (Insulin Glargine,Hum.Rec.Anlog 100 Unit/Ml 10 Ml Vial) 17 unit SUBCUT BEDTIME [facility] Last Admin: 07/19/25 20:56 Dose: 17 unit Documented By: MARQUISE Insulin Human Lispro (Insulin Lispro 100 Unit/Ml 3 Ml Vial) 0.1 - 10 unit SUBCUT QIDACHS [facility]; Protocol Last Admin: 07/20/25 07:20 Dose: Not Given Documented By: CHICHO Non-Admin Reason: No Insulin Coverage Lisinopril (Lisinopril 20 Mg Tablet) 20 mg PO DAILY [facility]; Protocol Last Admin: 07/20/25 08:25 Dose: 20 mg Documented By: CHICHO Magnesium Hydroxide (Milk Of Magnesia 30 Ml Oral.Susp) 30 ml PO DAILY PRN PRN Reason: Constipation Melatonin (Melatonin 3 Mg Tablet) 6 mg PO BEDTIME PRN PRN Reason: Insomnia Metoprolol Succinate (Metoprolol Succinate Er 100 Mg Tab.Er.24h) 200 mg PO DAILY [facility]; Protocol Last Admin: 07/20/25 08:26 Dose: 200 mg Documented By: CHICHO Mirabegron (Mirabegron 50 Mg Tab.Er.24h) 50 mg PO DAILY [facility] Last Admin: 07/20/25 08:25 Dose: 50 mg Documented By: CHICHO Mirtazapine (Mirtazapine 30 Mg Tablet) 30 mg PO BEDTIME [facility] Last Admin: 07/19/25 20:58 Dose: 30 mg Documented By: MARQUISE Omeprazole (Omeprazole 20 Mg Capsule.Dr) 20 mg PO DAILY@0630 [facility] Last Admin: 07/20/25 05:37 Dose: 20 mg Documented By: MARQUISE Ondansetron HCl (Ondansetron Hcl 4 Mg/2 Ml Vial) 4 mg IVPUSH Q8H PRN PRN Reason: Nausea and Vomiting Oxycodone HCl (Oxycodone Hcl Immed Release 5 Mg Tablet) 5 mg PO Q6H PRN PRN Reason: Pain, Severe (Pain Scale 7-10) Last Admin: 07/20/25 05:41 Dose: 5 mg Documented By: MARUQISE Pharmacy Consult (Consult Rx Vancomycin Dosing) 1 each MISCELLANE DAILY PRN PRN Reason: Consult order Sodium Chloride (0.9 % Sodium Chloride Flush 3 Ml [facility]) [facility] Admin: 07/20/25 08:22 Dose: 3 ml Documented By: CHICHO Tamsulosin HCl (Tamsulosin Hcl 0.4 Mg Capsule) 0.4 mg PO DAILY [facility] Last Admin: 07/20/25 08:26 Dose: 0.4 mg Documented By: CHICHO Tramadol HCl (Tramadol Hcl 50 Mg Tablet) 50 mg PO Q6H PRN PRN Reason: Pain, Moderate(Pain Scale 4-6) Last Admin: 07/20/25 08:25 Dose: 50 mg Documented By: CHICHO Labs 07/20/25 05:26 07/20/25 05:26 Labs: Laboratory Results - last 24 hr 07/19/25 07/19/25 07/19/25 11:50 16:18 20:30 MCV MCH MCHC RDW Plt Count MPV Immature Gran % (Auto) Neut % (Auto) Lymph % (Auto) [place] % (Auto) Eos % (Auto) Baso % (Auto) Lymph # (Auto) [place] # (Auto) Eos # (Auto) Baso # (Auto) Abs Immat Gran (auto) Absolute Neuts (auto) Absolute Nucleated RBC Nucleated RBC % (auto) Anion Gap Estim Creat Clear Calc Estimated GFR POC Glucose 119 H 176 H 164 H Random Glucose Calcium Total Bilirubin AST ALT Alkaline Phosphatase Total Protein Albumin Random Vancomycin 07/19/25 07/20/25 07/20/25 20:56 05:26 07:19 MCV 89.3 MCH 31.0 MCHC 34.7 RDW 13.9 Plt Count 156 L MPV 9.1 L Immature Gran % (Auto) 0.6 H Neut % (Auto) 72.1 Lymph % (Auto) 16.6 L [place] % (Auto) 8.2 Eos % (Auto) 1.9 Baso % (Auto) 0.6 Lymph # (Auto) 1.7 [place] # (Auto) 0.8 Eos # (Auto) 0.2 Baso # (Auto) 0.1 Abs Immat Gran (auto) 0.06 H Absolute Neuts (auto) 7.4 Absolute Nucleated RBC 0.000 Nucleated RBC % (auto) 0.0 Anion Gap 16 Estim Creat Clear Calc 44.3 Estimated GFR 45 POC Glucose 117 H Random Glucose 111 Calcium 9.5 Total Bilirubin 0.8 AST 36 ALT 33 Alkaline Phosphatase 71 Total Protein 7.1 Albumin 4.0 Random Vancomycin 10.7 L Microbiology Microbiology Results: Microbiology 07/18/25 20:01 Blood Culture - Preliminary Blood - Venous No growth after 24 hours. 07/18/25 20:01 Blood Culture - Preliminary Blood - Venous No growth after 24 hours. Assessment and Plan (1) SIRS (systemic inflammatory response syndrome): Status: Acute Plan Patient is 74 with a past medical history significant for HIV, GERD, T2DM, KINGSLEY, polycythemia HTN, HLD, dementia, CKD 3, CAD, BPH and history diverticulitis, presented to the ED after falling on his right side earlier today. imaging has been negative for any acute fx, however, pt has been tachycardic with leukocytosis SIRS+, HIV+ - blood cultures negative at 24, but WBC down to normal now - A/P CT possible cholecytitis WBC 21->10 -HIDA -Surgery consult - ID consult - vancomycin and zosyn prophylactically - monitor CBC and CMP HIV - on injectables, states he is UTD - check viral load thrombocytopenia, new since march - monitor platelets weakess, fall, chronic - continue outpt PT T2DM - SSI - diabetic diet - lantus HTN - continue home meds HLD - continue home meds CKD 3, stable - avoid nephrotoxins - monitor cr CAD - continue home meds BPH - continue home meds full code VTE prophy: SCDs per pt request Pt SIRS + with HIV, requiring admission for at least 2 midnights stay for further evaluation and monitoring. Quality Stroke Does the patient have a stroke diagnosis?: No VTE Prior VTE?: No VTE Risk Level:: Medical - moderate - high VTE Device Contraindication: N/A - Device Ordered VTE Drug Contraindication: Treatment Not Indicated
[2025-07-20 11:13] LABS: Glucose, Whole Blood 154 mg/dL (60-115)
[2025-07-20 16:29] LABS: Glucose, Whole Blood 178 mg/dL (60-115)
[2025-07-20 20:50] LABS: Glucose, Whole Blood 147 mg/dL (60-115)
[2025-07-20] MEDS: Insulin Glargine,Hum.rec.anlog 100 UNIT/ML 10 ML VIAL 17 UNIT SUBCUT (21:15)
--- NOTE | 2025-07-20 21:49 | PC.NURSE ---
Pt motivated to ambulate. 1A w/ walker. Pt ambulated with [employer] SERVICE TECHNICIAN from room to nurse's station then back to pt room. Pt tolerated ambulation well.
[2025-07-21] VITALS (7 sets, daily range): BP systolic 102–159; BP diastolic 60–86; PULSE 60–70; RESP 16–18; TEMP 36.1–36.7; O2SAT 96–99
[2025-07-21 06:09] LABS: MANUAL DIFF FLAG NO
[2025-07-21 06:12] LABS: Hematocrit 37.6 % (42.0-52.0); Hemoglobin 12.9 g/dl (14.0-18.0); Imm Gran Abs Auto 0.06 X10*3/uL (0.00-0.03); Imm Gran Pct Auto 0.7 % (0.0-0.4); Lymphocytes Absolute Auto 1.8 X10*3/uL (1.2-4.9); Mean Corpuscular HGB Conc 34.3 g/dl (31.0-36.0); Mean Corpuscular Hemoglobin 30.4 pg (27.0-33.0); Mean Corpuscular Volume 88.7 fL (80.0-98.0); NRBC Abs Auto 0.000 X10*3/uL (0.0-0.012); NRBC Pct Auto 0.0 /100WBC (0.0-0.2); Platelet Count 163 X10*3/uL (160-400); Red Blood Count 4.24 X10*6/uL (4.60-5.80); White Blood Count 8.5 X10*3/uL (4.8-10.8)
[2025-07-21 06:28] LABS: Alanine Aminotransferase 25 U/L (0-40); Albumin Level 3.9 g/dL (3.5-5.0); Alkaline Phosphatase 63 U/L (39-117); Anion Gap 13 (12-20); Aspartate Amino Transferase 24 U/L (5-37); Blood Urea Nitrogen 22 mg/dL (9-16); Calcium 9.3 mg/dL (8.4-10.2); Carbon Dioxide 27 mmol/L (22-29); Chloride 106 mmol/L (96-108); Creatinine Clr Calc Pharmacy 36.7; Estimated Glomerular Filt Rate 36; Potassium 3.6 mmol/L (3.3-5.1); Sodium 142 mmol/L (135-145); Total Protein 6.8 g/dL (6.5-8.0)
[2025-07-21 07:23] LABS: Glucose, Whole Blood 112 mg/dL (60-115)
[2025-07-21] MEDS: Mirabegron 50 MG TAB.ER.24H PO (08:03)
[2025-07-21] MEDS: buPROPion HCl XL 150 MG TAB.ER.24H PO (08:03)
[2025-07-21] MEDS: Metoprolol Succinate ER 100 MG TAB.ER.24H 200 MG PO (08:03)
[2025-07-21] MEDS: 0.9 % Sodium Chloride Flush 3 ML SYRINGE IVFLUSH ×3 (08:08→20:35)
[2025-07-21 11:18] LABS: Glucose, Whole Blood 152 mg/dL (60-115)
--- NOTE | 2025-07-21 11:46 | MHC.CLN ---
F/U DIET RX: DIABETIC 2000 KCALS. SKIN WITH OPEN AREA TO BUTTOCK. ENSURE MAX BID TO PROMOTE SKIN INTEGRITY. SUPPLEMENT PROVIDES 300 KCALS, 60 G PROTEIN. PO INTAKE VARIABLE. FOLLOW FOR PO INTAKE AND SKIN INTEGRITY.
--- NOTE | 2025-07-21 12:09 | PC.NURSE ---
Patient told [facility] [employer] [facility] and [facility], that he feels more depressed, and would like to see a pych doctor while he is at the hospital. Hospitalist for the day notified.
--- NOTE | 2025-07-21 13:43 | HO.WOUND ---
Wound Consult: Initial 74 yr old male admitted to [facility] on 07[place]18/25 - See progress notes and H&P for detailed history. Wound consult placed for buttocks. Patient agreeable to assessment and photo documentation. Patient reports history of wound to coccyx/buttock area in the past. He is unable to give timeline, but said possibly 10 years ago . he reports that the area was treated by visiting nurses, and he has had one area that opens and closes to right buttocks. He reports recent increase in incontinence. He is able to assist with positioning in bed but reports hip and shoulder discomforts which limit him from independent positioning, patient agreeable to Q2h turns. Coccyx/buttocks Etiology: redness- healed skin injury Wound Bed: large area of intact blachable redness extending across coccyx/sacrum/buttocks- right buttock with small area of callus/thickened scar tissue - likely old, healed skin injury Drainage / Odor: none Patti wound: ? No Induration, Fluctuance or Warmth noted Pain: none Goals of Treatment: ? offloading, foam dressing for pressure redistribution, Q2H turns - incontinence care - patient is at high risk for re-injury Recommendations: 1. Turn and Reposition every 2 hours and as needed for patient comfort. Use pillows or wedges to support off loading positions. 2. Off Load all bony prominences with use of pillows and heel boots if needed. Apply Preventative foams where needed. 3. Monitor for incontinence and moisture control, use barrier creams when needed for prevention and treatment. 4. Provide adequate and supplemental nutrition. 5. Continue low air loss mattress. 6. When applicable maintain blood glucose levels per Providers order. Coccyx/Buttocks: Off Load Pressure with Q2 hr turns and use of pillows - Cleanse with PH balance spray or wipes, pat dry. ?Apply thin layer of Triad to wound bed. Do not remove all of paste between applications as this may cause further skin damage.? Cover with foam dressing to aid in off loading and protection from friction. Change every other day and PRN. - peel back and replace foam for shift assessment Re-consult wound care Nurse for wound deterioration or wound changes.
--- NOTE | 2025-07-21 15:53 | MHC.CM.PN ---
pt recommended str referrals made per rounds id needs to see pt
[2025-07-21 16:34] LABS: Glucose, Whole Blood 124 mg/dL (60-115)
--- NOTE | 2025-07-21 16:43 | P.PNIM_ITS ---
Subjective Subjective Date of Service: 07/21/25 Interval History: Presented with fall and found to have SIRS, with WBC 21 but now normal Gallbladder scan showed chronic cholecsystitis Physical Exam 2 Vital Signs: Vital Signs: Last Vital Signs Temp 97.4 F 07/21/25 16:00 Pulse 70 07/21/25 16:00 Resp 16 07/21/25 16:00 BP 102/69 07/21/25 16:00 Pulse Ox 98 07/21/25 16:00 O2 Del Method Room Air 07/21/25 16:00 BMI result Body Mass Index 23.7 Const: Other: General: AO X 3, no acute distress Resp: CTA bilateral CVS: S1,S2,RRR GI: +BS, NT, no distention Skin: No rash Neuro: motor grossly intact Psych: appropriate affect Objective Data Active Medications Acetaminophen (Acetaminophen 325 Mg Tablet) 975 mg PO Q6H PRN PRN Reason: Pain, Mild 1-3,fever,headache Last Admin: 07/19/25 06:23 Dose: 975 mg Documented By: BHARGAV Amlodipine Besylate (Amlodipine Besylate 10 Mg Tablet) 10 mg PO DAILY [facility]; Protocol Last Admin: 07/21/25 08:03 Dose: 10 mg Documented By: JOELLE Atorvastatin Calcium (Atorvastatin Calcium 80 Mg Tablet) 80 mg PO DAILY [facility] Last Admin: 07/21/25 08:03 Dose: 80 mg Documented By: JOELLE Bupropion HCl (Bupropion Hcl Xl 150 Mg Tab.Er.24h) 150 mg PO DAILY [facility] Last Admin: 07/21/25 08:03 Dose: 150 mg Documented By: JOELLE Calcium Carbonate (Calcium Carbonate 750 Mg Tab.Chew) 750 mg PO Q4H PRN PRN Reason: Heartburn Dextrose (Dextrose 50 % 25 Gm/50 Ml Syringe) 25 gm IVPUSH Q15M PRN; Protocol PRN Reason: per Hypoglycemia Standing Ord. Donepezil HCl (Donepezil Hcl 10 Mg Tablet) 10 mg PO BEDTIME [facility] Last Admin: 07/20/25 21:15 Dose: 10 mg Documented By: YULY Finasteride (Finasteride 5 Mg Tablet) 5 mg PO DAILY [facility] Last Admin: 07/21/25 08:04 Dose: 5 mg Documented By: JOELLE Glucose (Glucose Gel 15 Gm Gel..Gram.) 15 gm PO Q15M PRN; Protocol PRN Reason: per Hypoglycemia Standing Ord. Piperacillin Sod/Tazobactam (Sod 3.375 gm/ Sodium Chloride) 50 mls @ 100 mls/hr IV Q6H [facility] Last Infusion: 07/21/25 13:12 Dose: Infused Documented By: JOELLE Vancomycin HCl 1,000 mg/ (Sodium Chloride) 270 mls @ 270 mls/hr IV Q24H [facility] Last Infusion: 07/21/25 01:02 Dose: Infused Documented By: YULY Insulin Glargine (Insulin Glargine,Hum.Rec.Anlog 100 Unit/Ml 10 Ml Vial) 17 unit SUBCUT BEDTIME [facility] Last Admin: 07/20/25 21:15 Dose: 17 unit Documented By: YULY Insulin Human Lispro (Insulin Lispro 100 Unit/Ml 3 Ml Vial) 0.1 - 10 unit SUBCUT QIDACHS [facility]; Protocol Last Admin: 07/21/25 11:44 Dose: 2 unit Documented By: JOELLE Lisinopril (Lisinopril 20 Mg Tablet) 20 mg PO DAILY [facility]; Protocol Last Admin: 07/21/25 08:03 Dose: 20 mg Documented By: JOELLE Magnesium Hydroxide (Milk Of Magnesia 30 Ml Oral.Susp) 30 ml PO DAILY PRN PRN Reason: Constipation Melatonin (Melatonin 3 Mg Tablet) 6 mg PO BEDTIME PRN PRN Reason: Insomnia Metoprolol Succinate (Metoprolol Succinate Er 100 Mg Tab.Er.24h) 200 mg PO DAILY [facility]; Protocol Last Admin: 07/21/25 08:03 Dose: 200 mg Documented By: JOELLE Mirabegron (Mirabegron 50 Mg Tab.Er.24h) 50 mg PO DAILY [facility] Last Admin: 07/21/25 08:03 Dose: 50 mg Documented By: JOELLE Mirtazapine (Mirtazapine 30 Mg Tablet) 30 mg PO BEDTIME [facility] Last Admin: 07/20/25 21:15 Dose: 30 mg Documented By: YULY Omeprazole (Omeprazole 20 Mg Capsule.Dr) 20 mg PO DAILY@0630 [facility] Last Admin: 07/21/25 05:30 Dose: 20 mg Documented By: YULY Ondansetron HCl (Ondansetron Hcl 4 Mg/2 Ml Vial) 4 mg IVPUSH Q8H PRN PRN Reason: Nausea and Vomiting Oxycodone HCl (Oxycodone Hcl Immed Release 5 Mg Tablet) 5 mg PO Q6H PRN PRN Reason: Pain, Severe (Pain Scale 7-10) Last Admin: 07/20/25 05:41 Dose: 5 mg Documented By: MARQUISE Pharmacy Consult (Consult Rx Vancomycin Dosing) 1 each MISCELLANE DAILY PRN PRN Reason: Consult order Sodium Chloride (0.9 % Sodium Chloride Flush 3 Ml Syringe) 3 ml IVFLUSH QSHIFT [facility] Last Admin: 07/21/25 08:08 Dose: 3 ml Documented By: JOELLE Tamsulosin HCl (Tamsulosin Hcl 0.4 Mg Capsule) 0.4 mg PO DAILY [facility] Last Admin: 07/21/25 08:03 Dose: 0.4 mg Documented By: JOELLE Tramadol HCl (Tramadol Hcl 50 Mg Tablet) 50 mg PO Q6H PRN PRN Reason: Pain, Moderate(Pain Scale 4-6) Last Admin: 07/20/25 08:25 Dose: 50 mg Documented By: CHICHO Labs 07/21/25 05:49 07/22/25 06:07 Labs: Laboratory Results - last 24 hr 07/20/25 07/21/25 07/21/25 20:30 05:49 07:14 MCV 88.7 MCH 30.4 MCHC 34.3 RDW 14.1 Plt Count 163 MPV 9.2 L Immature Gran % (Auto) 0.7 H Neut % (Auto) 67.1 Lymph % (Auto) 21.2 [place] % (Auto) 7.7 Eos % (Auto) 2.7 Baso % (Auto) 0.6 Lymph # (Auto) 1.8 [place] # (Auto) 0.7 Eos # (Auto) 0.2 Baso # (Auto) 0.1 Abs Immat Gran (auto) 0.06 H Absolute Neuts (auto) 5.7 Absolute Nucleated RBC 0.000 Nucleated RBC % (auto) 0.0 Anion Gap 13 Estim Creat Clear Calc 36.7 Estimated GFR 36 POC Glucose 147 H 112 Random Glucose 95 Calcium 9.3 Total Bilirubin 0.8 AST 24 ALT 25 Alkaline Phosphatase 63 Total Protein 6.8 Albumin 3.9 07/21/25 07/21/25 11:00 16:27 MCV MCH MCHC RDW Plt Count MPV Immature Gran % (Auto) Neut % (Auto) Lymph % (Auto) [place] % (Auto) Eos % (Auto) Baso % (Auto) Lymph # (Auto) [place] # (Auto) Eos # (Auto) Baso # (Auto) Abs Immat Gran (auto) Absolute Neuts (auto) Absolute Nucleated RBC Nucleated RBC % (auto) Anion Gap Estim Creat Clear Calc Estimated GFR POC Glucose 152 H 124 H Random Glucose Calcium Total Bilirubin AST ALT Alkaline Phosphatase Total Protein Albumin Microbiology Microbiology Results: Microbiology 07/18/25 20:01 Blood Culture - Preliminary Blood - Venous No growth after 48 hours. 07/18/25 20:01 Blood Culture - Preliminary Blood - Venous No growth after 48 hours. Assessment and Plan (1) SIRS (systemic inflammatory response syndrome): Status: Acute Plan Patient is 74 with a past medical history significant for HIV, GERD, T2DM, KINGSLEY, polycythemia HTN, HLD, dementia, CKD 3, CAD, BPH and history diverticulitis, presented to the ED after falling on his right side earlier today. imaging has been negative for any acute fx, however, pt has been tachycardic with leukocytosis SIRS+, HIV+ - blood cultures negative at 48 hrs, but WBC down to normal now - A/P CT cystis, HIDA chronic cholecystitis WBC 21->10 - ID consult pending - vancomycin and zosyn empirically - monitor CBC and CMP HIV - on injectables, states he is UTD thrombocytopenia, new since march - monitor platelets weakess, fall, chronic - continue outpt PT T2DM - SSI - diabetic diet - lantus HTN - continue home meds HLD - continue home meds CKD 3, stable - avoid nephrotoxins - monitor cr CAD - continue home meds BPH - continue home meds Depression, no SI/HI but requesting to be seen by Psych full code VTE prophy: SCDs per pt request Pt SIRS + with HIV, requiring admission for at least 2 midnights stay for further evaluation and monitoring. probable dc tomorrow Quality Stroke Does the patient have a stroke diagnosis?: No VTE Prior VTE?: No VTE Risk Level:: Medical - moderate - high VTE Device Contraindication: N/A - Device Ordered VTE Drug Contraindication: Treatment Not Indicated
[2025-07-21 20:15] LABS: Glucose, Whole Blood 164 mg/dL (60-115)
[2025-07-21 20:33] LABS: HIV RNA PCR Qn Copies 102 copies/mL (NOT DETECTED); HIV RNA PCR Qn Log Copies 2.01 (NOT DETECTED)
[2025-07-21] MEDS: Insulin Glargine,Hum.rec.anlog 100 UNIT/ML 10 ML VIAL 17 UNIT SUBCUT (20:35)
--- NOTE | 2025-07-21 21:57 | HE.PHANOTE ---
Vancomycin Trough - 12.6. Pt with CKD, Cr increased from 1.53 to 1.85 today. Continue to monitor renal fxn. Next level 07/22/25 @2100
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
[2025-07-22 03:50] VITALS: BP 153/84; PULSE 69; RESP 18; TEMP 36.3; O2SAT 97
[2025-07-22 07:22] LABS: Creatinine Clr Calc Pharmacy 38.8; Estimated Glomerular Filt Rate 38
[2025-07-22 07:35] LABS: Glucose, Whole Blood 100 mg/dL (60-115)
[2025-07-22 07:58] VITALS: BP 150/81; PULSE 68; RESP 12; TEMP 37; O2SAT 94
[2025-07-22] MEDS: Metoprolol Succinate ER 100 MG TAB.ER.24H 200 MG PO (08:42)
[2025-07-22] MEDS: 0.9 % Sodium Chloride Flush 3 ML SYRINGE IVFLUSH (08:43)
[2025-07-22] MEDS: Mirabegron 50 MG TAB.ER.24H PO (08:43)
[2025-07-22] MEDS: buPROPion HCl XL 300 MG TAB.ER.24H PO (08:43)
--- NOTE | 2025-07-22 08:44 | P.DS_ITS ---
DS: Providers Provider Date of Service: 07/22/25 Date of admission: 07/18/25 22:23 Date of discharge: 07/22/25 Primary care physician: Bailey Ingram MD Consults: 07/20/25 09:38 Consult to Infectious Diseases Routine Consulting Provider: [facility] Reason for consultation: HIV with SIrS, leukocytosis but no source 07/21/25 12:49 Consult to Wound Care Routine Consulting Provider: [facility] Reason for consultation: buttocks redness 07/21/25 16:00 Consult to Psychiatry Routine Consulting Provider: [facility] [place] Psych Cover[facility] Reason for consultation: Depression and wants be seen DS: Diagnosis Discharge Diagnosis (1) SIRS (systemic inflammatory response syndrome): Status: Acute DS: Summary Hospital Course Hospital Course: Admission hpi Chief Complaint: fall Patient is 74 with a past medical history significant for HIV, GERD, T2DM, KINGSLEY, polycythemia, HTN, HLD, dementia, CKD 3, CAD, BPH and history diverticulitis, presented to the ED after falling on his right side earlier today. The patient reported that he was getting up to urinate quickly fell to the ground. At baseline he has weakness in his seen physical therapy for sciatic pain. he also reports boday aches but is unable to determine the onset. He denied any chest pain, shortness of breath or dizziness prior to the fall. Unknown if headstrike but no loss of consciousness, nausea, vomiting, shortness of breath, chest pain or change in vision. Patient does not take any anticoagulation. He reports he has been going for his HIV medication injectiosn every 2-3 weeks. He was on the ground for less than 2 hours before calling before EMS was called. Hospital course: Patient is 74 with a past medical history significant for HIV, GERD, T2DM, KINGSLEY, polycythemia HTN, HLD, dementia, CKD 3, CAD, BPH and history diverticulitis, presented to the ED after falling on his right side. imaging has been negative for any acute fx, however, he was noted to have achycardic with ofleukocytosis 21K, therre was no obvious source of infection; blood cultures were sent are so far negative x 48 hrs, UA was negative UTI, CXR revealed no PNA, CT of abdomen and pelvis showed possible cystitis, a gallbladder scan showed chronic cholecysitis. In light of HIV and immunosopressive state he was started on broad spectrum antibiotics with Vancomycin and Zosyn and Leukocytosis have resolved, it is possible he had cystitis, UA was ok, has completed 6 days Abx and will hold of further HIV - on injectables, states he is UTD thrombocytopenia, new since march - monitor platelets weakess, fall, chronic - continue outpt PT T2DM - SSI - diabetic diet - lantus HTN - continue home meds HLD - continue home meds CKD 3, stable - avoid nephrotoxins - monitor cr CAD - continue home meds BPH - continue home meds Depression: he denies SI/HI but wanted to see Psych Psych saw him and made the following recommendation Increased Wellbutrin XL up to 300mg daily start on 07/22/25 for depression Start Hydroxyzine 25mg Q6hrs PRN for anxiety. Ordered Testosterone level: report missing at least one appointment for his treatment which is every three months: Low testosterone can affect mood- depressed. check TSH with Free T4 reflex. Recommended to OP psychiatrist and therapist for aftercare. Advised patient to address it with his PCP who has been managed his psychiatric symptoms. Patient may benefit from VNA if not yet set up. Elderly services for aftercare if patient has not yet received. patient has PT evaluation placed by hospitalist today with pending result. PT is recommending short term rehab Time Attestation Discharge Coordination Time (in mins): 40 Quality: Safe Use of Opioids Does Pt have an Active Cancer Diagnosis on the Problem List?: No Quality: Stroke Does the patient have a stroke diagnosis?: No Physical Exam Vital Signs: Vital Signs: Last Vital Signs Temp 98.6 F 07/22/25 07:58 Pulse 68 07/22/25 07:58 Resp 12 07/22/25 07:58 BP 150/81 H 07/22/25 07:58 Pulse Ox 94 07/22/25 07:58 O2 Del Method Room Air 07/22/25 07:58 BMI result Body Mass Index 23.7 DS: Data Data Completed and Pending Labs on day of discharge: Laboratory Results - last 24 hr 07/18/25 07/21/25 07/21/25 22:46 11:00 16:27 Creatinine Estim Creat Clear Calc Estimated GFR POC Glucose 152 H 124 H TSH Random Vancomycin HIV-1 RNA copies/mL 102 H HIV-1 RNA logcopies/mL 2.01 H 07/21/25 07/21/25 07/22/25 19:41 21:19 06:07 Creatinine 1.75 H Estim Creat Clear Calc 38.8 Estimated GFR 38 POC Glucose 164 H TSH 2.04 Random Vancomycin 12.6 L HIV-1 RNA copies/mL HIV-1 RNA logcopies/mL 07/22/25 07:30 Creatinine Estim Creat Clear Calc Estimated GFR POC Glucose 100 TSH Random Vancomycin HIV-1 RNA copies/mL HIV-1 RNA logcopies/mL Preliminary micro results at discharge 07/18/25 20:01 Blood Culture - Preliminary Blood - Venous No growth after 48 hours. 07/18/25 20:01 Blood Culture - Preliminary Blood - Venous No growth after 48 hours. Discharge Plan Discharge Anticipated Discharge Date/Time: 07/22/25 08:46 Patient Disposition: Home, Self-Care Discharge Diagnosis: SIRS, HIV Referrals: [facility]Outside] - 1 Week Bailey Ingram MD [Primary Care Provider, Internal Medicine] - 1 Week Discharge Medications: New hydralazine 25 mg tablet 25 mg PO TID Qty: 30 0RF bupropion HCl 300 mg Tablet Extended Release 24 Hr 300 mg PO DAILY Qty: 180 0RF Continued Testopel 75 mg pellet 75 mg implant [id number] tamsulosin 0.4 mg capsule 0.4 mg PO DAILY amlodipine 10 mg tablet 10 mg PO DAILY rosuvastatin 40 mg tablet 40 mg PO DAILY (DME) pen needle, diabetic [BD Colette 2nd Gen Pen Needle] 32 gauge x 5/32 needle MISCELLANEOUS DAILY insulin degludec [Tresiba FlexTouch U-200] 200 unit/mL (3 mL) insulin pen 35 unit subcut BEDTIME Rx Instructions: 1/2 dose only Trulicity 1.5 mg/0.5 mL pen injector 1.5 mg subcut FR donepezil 10 mg tablet 10 mg PO BEDTIME pantoprazole 20 mg Tablet,Delayed Release (Dr/Ec) 20 mg PO DAILY@0630 finasteride 5 mg Tablet 5 mg PO DAILY mirabegron [Myrbetriq] 50 mg Tablet Extended Release 24 Hr 50 mg PO DAILY Cabenuva 600 mg/3 mL- 900 mg/3 mL suspension,extended release 3 ml IM [id number] mirtazapine 30 mg tablet 30 mg PO BEDTIME metoprolol succinate 200 mg tablet extended release 24 hr 200 mg PO DAILY lisinopril 20 mg tablet 20 mg PO DAILY Discontinued bupropion HCl 150 mg tablet extended release 24 hr 150 mg PO DAILY Discharge Orders: Discharge Order (Routine); Ordered 07/22/25 Ordered By: Jose Bergeron Diet: Advance to usual diet Activity on Discharge: As tolerated Stand Alone Forms: Patient Portal Discharge page Print Language: German Care Plan Goals: recovery from SIRS, weakness in setting of HIV Health Concerns: Leukocytosis Plan of Treatment: Follow up with your doctor in a week Follow up with your therapist Hydralazine is added for anxiety Bupropion dose increased to 300 mg Assessment: see above
--- NOTE | 2025-07-22 09:01 | P.PNIM_ITS ---
Subjective Subjective Date of Service: 07/22/25 Interval History: No new issues, he's feeling better, psych has seen him and made some recommendation see below Physical Exam 2 Vital Signs: Vital Signs: Last Vital Signs Temp 98.6 F 07/22/25 07:58 Pulse 68 07/22/25 07:58 Resp 12 07/22/25 07:58 BP 150/81 H 07/22/25 07:58 Pulse Ox 94 07/22/25 07:58 O2 Del Method Room Air 07/22/25 07:58 BMI result Body Mass Index 23.7 Const: Other: General: AO X 3, no acute distress Resp: CTA bilateral CVS: S1,S2,RRR GI: +BS, NT, no distention Skin: No rash, stage pressure ulcer documented elswhere Neuro: motor grossly intact Psych: appropriate affect Objective Data Active Medications Acetaminophen (Acetaminophen 325 Mg Tablet) 975 mg PO Q6H PRN PRN Reason: Pain, Mild 1-3,fever,headache Last Admin: 07/19/25 06:23 Dose: 975 mg Documented By: BHARGAV Amlodipine Besylate (Amlodipine Besylate 10 Mg Tablet) 10 mg PO DAILY [facility] [place]; Protocol Last Admin: 07/22/25 08:43 Dose: 10 mg Documented By: ISAAK Atorvastatin Calcium (Atorvastatin Calcium 80 Mg Tablet) 80 mg PO DAILY [facility] [place] Last Admin: 07/22/25 08:43 Dose: 80 mg Documented By: ISAAK Bupropion HCl (Bupropion Hcl Xl 300 Mg Tab.Er.24h) 300 mg PO DAILY [facility] [place] Last Admin: 07/22/25 08:43 Dose: 300 mg Documented By: ISAAK Calcium Carbonate (Calcium Carbonate 750 Mg Tab.Chew) 750 mg PO Q4H PRN PRN Reason: Heartburn Dextrose (Dextrose 50 % 25 Gm/50 Ml Syringe) 25 gm IVPUSH Q15M PRN; Protocol PRN Reason: per Hypoglycemia Standing Ord. Donepezil HCl (Donepezil Hcl 10 Mg Tablet) 10 mg PO BEDTIME [facility] [place] Last Admin: 07/21/25 20:34 Dose: 10 mg Documented By: YULY Finasteride (Finasteride 5 Mg Tablet) 5 mg PO DAILY [facility] [place] Last Admin: 07/22/25 08:43 Dose: 5 mg Documented By: ISAAK Glucose (Glucose Gel 15 Gm Gel..Gram.) 15 gm PO Q15M PRN; Protocol PRN Reason: per Hypoglycemia Standing Ord. Hydroxyzine HCl (Hydroxyzine Hcl 25 Mg Tablet) 25 mg PO Q6H PRN PRN Reason: anxiety Piperacillin Sod/Tazobactam (Sod 3.375 gm/ Sodium Chloride) 50 mls @ 100 mls/hr IV Q6H [facility] [place] Last Infusion: 07/22/25 05:29 Dose: Infused Documented By: YULY Vancomycin HCl 1,000 mg/ (Sodium Chloride) 270 mls @ 270 mls/hr IV Q24H [facility] [place] Last Infusion: 07/22/25 00:09 Dose: Infused Documented By: YULY Insulin Glargine (Insulin Glargine,Hum.Rec.Anlog 100 Unit/Ml 10 Ml Vial) 17 unit SUBCUT BEDTIME [facility] [place] Last Admin: 07/21/25 20:35 Dose: 17 unit Documented By: YULY Insulin Human Lispro (Insulin Lispro 100 Unit/Ml 3 Ml Vial) 0.1 - 10 unit SUBCUT QIDACHS [facility] [place]; Protocol Last Admin: 07/22/25 07:37 Dose: Not Given Documented By: ISAAK Non-Admin Reason: No Insulin Coverage Lisinopril (Lisinopril 20 Mg Tablet) 20 mg PO DAILY [facility] [place]; Protocol Last Admin: 07/22/25 08:43 Dose: 20 mg Documented By: ISAAK Magnesium Hydroxide (Milk Of Magnesia 30 Ml Oral.Susp) 30 ml PO DAILY PRN PRN Reason: Constipation Melatonin (Melatonin 3 Mg Tablet) 6 mg PO BEDTIME PRN PRN Reason: Insomnia Last Admin: 07/21/25 20:34 Dose: 6 mg Documented By: YULY Metoprolol Succinate (Metoprolol Succinate Er 100 Mg Tab.Er.24h) 200 mg PO DAILY [facility] [place]; Protocol Last Admin: 07/22/25 08:42 Dose: 200 mg Documented By: ISAAK Mirabegron (Mirabegron 50 Mg Tab.Er.24h) 50 mg PO DAILY [facility] [place] Last Admin: 07/22/25 08:43 Dose: 50 mg Documented By: ISAAK Mirtazapine (Mirtazapine 30 Mg Tablet) 30 mg PO BEDTIME [facility] [place] Last Admin: 07/21/25 20:34 Dose: 30 mg Documented By: YULY Omeprazole (Omeprazole 20 Mg Capsule.) 20 mg PO DAILY@0630 [facility] [place] Last Admin: 07/22/25 05:34 Dose: 20 mg Documented By: YULY Ondansetron HCl (Ondansetron Hcl 4 Mg/2 Ml Vial) 4 mg IVPUSH Q8H PRN PRN Reason: Nausea and Vomiting Oxycodone HCl (Oxycodone Hcl Immed Release 5 Mg Tablet) 5 mg PO Q6H PRN PRN Reason: Pain, Severe (Pain Scale 7-10) Last Admin: 07/20/25 05:41 Dose: 5 mg Documented By: MARQUISE Pharmacy Consult (Consult Rx Vancomycin Dosing) 1 each MISCELLANE DAILY PRN PRN Reason: Consult order Sodium Chloride (0.9 % Sodium Chloride Flush 3 Ml Syringe) [facility] Last Admin: 07/22/25 08:43 Dose: 3 ml Documented By: ISAKA Tamsulosin HCl (Tamsulosin Hcl 0.4 Mg Capsule) 0.4 mg PO DAILY [facility] [place] Last Admin: 07/22/25 08:42 Dose: 0.4 mg Documented By: ISAAK Tramadol HCl (Tramadol Hcl 50 Mg Tablet) 50 mg PO Q6H PRN PRN Reason: Pain, Moderate(Pain Scale 4-6) Last Admin: 07/20/25 08:25 Dose: 50 mg Documented By: CHICHO Labs 07/21/25 05:49 07/22/25 06:07 Labs: Laboratory Results - last 24 hr 07/18/25 07/21/25 07/21/25 22:46 11:00 16:27 Estim Creat Clear Calc Estimated GFR POC Glucose 152 H 124 H TSH Random Vancomycin HIV-1 RNA copies/mL 102 H HIV-1 RNA logcopies/mL 2.01 H 07/21/25 07/21/25 07/22/25 19:41 21:19 06:07 Estim Creat Clear Calc 38.8 Estimated GFR 38 POC Glucose 164 H TSH 2.04 Random Vancomycin 12.6 L HIV-1 RNA copies/mL HIV-1 RNA logcopies/mL 07/22/25 07:30 Estim Creat Clear Calc Estimated GFR POC Glucose 100 TSH Random Vancomycin HIV-1 RNA copies/mL HIV-1 RNA logcopies/mL Microbiology Microbiology Results: Microbiology 07/18/25 20:01 Blood Culture - Preliminary Blood - Venous No growth after 48 hours. 07/18/25 20:01 Blood Culture - Preliminary Blood - Venous No growth after 48 hours. Assessment and Plan (1) SIRS (systemic inflammatory response syndrome): Status: Acute Plan Patient is 74 with a past medical history significant for HIV, GERD, T2DM, KINGSLEY, polycythemia HTN, HLD, dementia, CKD 3, CAD, BPH and history diverticulitis, presented to the ED after falling on his right side. imaging has been negative for any acute fx, however, he was noted to have achycardic with ofleukocytosis 21K, therre was no obvious source of infection; blood cultures were sent are so far negative x 48 hrs, UA was negative UTI, CXR revealed no PNA, CT of abdomen and pelvis showed possible cystitis, a gallbladder scan showed chronic cholecysitis. In light of HIV and immunosopressive state he was started on broad spectrum antibiotics with Vancomycin and Zosyn and Leukocytosis have resolved, it is possible he had cystitis, will discharge with PO Augmentin and Doxycyline for a total of 10 days of antibiotics at discharge HIV - on injectables, states he is UTD thrombocytopenia, new since march - monitor platelets weakess, fall, chronic - continue outpt PT T2DM - SSI - diabetic diet - lantus HTN - continue home meds HLD - continue home meds CKD 3, stable - avoid nephrotoxins - monitor cr CAD - continue home meds BPH - continue home meds Depression: he denies SI/HI but wanted to see Psych Psych saw him and made the following recommendation Increased Wellbutrin XL up to 300mg daily start on 07/22/25 for depression Start Hydroxyzine 25mg Q6hrs PRN for anxiety. Ordered Testosterone level: report missing at least one appointment for his treatment which is every three months: Low testosterone can affect mood- depressed. check TSH with Free T4 reflex. Recommended to OP psychiatrist and therapist for aftercare. Advised patient to address it with his PCP who has been managed his psychiatric symptoms. Patient may benefit from VNA if not yet set up. Elderly services for aftercare if patient has not yet received. patient has PT evaluation placed by hospitalist today with pending result. PT is recommending short term rehab DVT prophylaxis: Patient declined chemical prophylaxis and requested compression device instead Possible dc later today to STR for less than 30 days Quality Stroke Does the patient have a stroke diagnosis?: No VTE Prior VTE?: No VTE Risk Level:: Medical - moderate - high VTE Device Contraindication: N/A - Device Ordered VTE Drug Contraindication: Treatment Not Indicated
[2025-07-22 11:47] LABS: Glucose, Whole Blood 174 mg/dL (60-115)
[2025-07-22 11:50] VITALS: BP 113/60; PULSE 70; RESP 20; TEMP 36.3; O2SAT 97
[2025-07-22 13:48] VITALS: BP 113/60; PULSE 70; O2SAT 97
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
--- NOTE | 2025-07-22 15:58 | W.MHC.F2F ---
Service Date Service Date: 07/22/25 Encounter Date of encounter: 07/22/25 Reasons for Services Signs and symptoms assessed: weakness and fall Reason for physical therapy: therapeutic exercises and gait/transfer training Homebound: Leaving the home is medically contraindicated at this time without the asist of a device and/or another person due th the listed conditions above and below. Reason homebound: unsteady gait / fall risk, fall risk related to blood pressure changes and leg weakness Homebound supporting statement: homebound due to weakness, leading fall and therefore needs the assistance of another person Certification: Based on the above findings, I certify that this patient is confined to the home and needs intermittent correction care, physical therapy and/or speech therapy, or continues to need occupational therapy. The patient is under my care, and I have initiated the establishment of the plan of care. The patient will be followed by a physician who will periodically review the plan of care. Time Spent With Patient Time: Total time managing care of this patient today ____ minutes.
[2025-07-22 17:09] VITALS: BP 107/65; PULSE 68; RESP 18; TEMP 37; O2SAT 97
[2025-07-22 17:10] LABS: Glucose, Whole Blood 116 mg/dL (60-115)
[2025-07-27 11:53] LABS: Testosterone, Free 45.6 pg/mL (30.0-135.0)
== END 2025-07-22 17:21 | disposition home or self-care (01) | DRG 690 ==
LOC: HO.ED 22:26 → HO.EDOVER 22:27 → HO.S3 07-19 10:46
PROVIDERS: Hospitalist; Nurse Practitioner Psychiatric/Mental Health; Physician Assistant; Admitting Provider Physician Assistant; Emergency Provider Emergency Medicine; PCP Family Medicine; Visit Provider Internal Medicine
DX: N30.90 Cystitis, unspecified without hematuria (principal); R65.10 Systemic inflammatory response syndrome (SIRS) of non-infectious origin without acute organ dysfunction; I12.9 Hypertensive chronic kidney disease with stage 1 through stage 4 chronic kidney disease, or unspecified chronic kidney disease; N18.30 Chronic kidney disease, stage 3 unspecified; Z21 Asymptomatic human immunodeficiency virus [HIV] infection status; I25.10 Atherosclerotic heart disease of native coronary artery without angina pectoris; E11.22 Type 2 diabetes mellitus with diabetic chronic kidney disease; D69.6 Thrombocytopenia, unspecified; G47.33 Obstructive sleep apnea (adult) (pediatric); E78.5 Hyperlipidemia, unspecified; N40.0 Benign prostatic hyperplasia without lower urinary tract symptoms; K81.1 Chronic cholecystitis; W19.XXXA Unspecified fall, initial encounter; Z20.822 Contact with and (suspected) exposure to COVID-19; Z79.4 Long term (current) use of insulin; Z79.85 Long-term (current) use of injectable non-insulin antidiabetic drugs; Z79.899 Other long term (current) drug therapy
CPT/HCPCS: 36415; 70450; 71046; 72125; 73030; 73502; 74176; 78227; 80053; 80202; 81001; 82550; 82565; 82947; 83605; 83735; 83880; 84402; 84403; 84443; 84484; 85025; 87040; 87536; 87633; 87637; 93005; 97116; 97162; 99285; A9537; J0696; J1644; J2543; J2805; J3373; J3374; J7120

== ENCOUNTER → 2025-07-18 17:00 | Outpatient (BNV) | payer OTHER, SELFPAY ==
[2022-03-27 08:59] VITALS: BP 136/70; BMI 27.3
== END ==
PROVIDERS: Admitting Provider Physician Assistant; Emergency Provider Emergency Medicine; PCP Family Medicine; Visit Provider Internal Medicine Cardiovascular Disease
DX: R00.0 Tachycardia, unspecified (principal); I45.10 Unspecified right bundle-branch block
CPT/HCPCS: 93010

== ENCOUNTER → 2025-07-18 17:00 | Outpatient (BNV) | payer OTHER, SELFPAY ==
[2022-03-27 08:59] VITALS: BP 136/70; BMI 27.3
== END ==
PROVIDERS: Emergency Provider Emergency Medicine Emergency Medical Services; PCP Family Medicine; Visit Provider Radiology Diagnostic Radiology
DX: A41.9 Sepsis, unspecified organism (principal)
CPT/HCPCS: 74176

== ENCOUNTER 2025-07-18 22:23 | Outpatient (BNV) | payer OTHER, SELFPAY ==
[2022-03-27 08:59] VITALS: BP 136/70; BMI 27.3
== END 2025-07-20 11:37 ==
PROVIDERS: Admitting Provider Physician Assistant; Emergency Provider Emergency Medicine; PCP Family Medicine; Visit Provider Radiology Diagnostic Radiology
DX: A41.9 Sepsis, unspecified organism (principal)
CPT/HCPCS: 78227

== ENCOUNTER → 2025-07-18 22:23 | Outpatient (BNV) | payer OTHER, SELFPAY ==
[2022-03-27 08:59] VITALS: BP 136/70; BMI 27.3
== END ==
PROVIDERS: Admitting Provider Physician Assistant; Emergency Provider Emergency Medicine; PCP Family Medicine; Visit Provider Internal Medicine
DX: R65.10 Systemic inflammatory response syndrome (SIRS) of non-infectious origin without acute organ dysfunction (principal)
CPT/HCPCS: 99232

== ENCOUNTER → 2025-07-18 22:23 | Outpatient (BNV) | payer OTHER, SELFPAY ==
[2022-03-27 08:59] VITALS: BP 136/70; BMI 27.3
== END ==
PROVIDERS: Admitting Provider Physician Assistant; Emergency Provider Emergency Medicine; PCP Family Medicine; Visit Provider Nurse Practitioner Psychiatric/Mental Health
DX: F32.1 Major depressive disorder, single episode, moderate (principal)
CPT/HCPCS: 99222